=== PATIENT | male | born 1960 | race Caucasian/White ===

== ENCOUNTER 2017-03-26 16:26 | Emergency (ER) | payer BC, OTHER ==
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
[2017-03-26 16:32] VITALS: BP 159/93
== END 2017-03-26 16:35 | disposition home or self-care (01) ==
LOC: ED 16:26
DX: S30.1XXA Contusion of abdominal wall, initial encounter (principal); Y35.393A Legal intervention involving other blunt objects, suspect injured, initial encounter
CPT/HCPCS: 99282; 99283

== ENCOUNTER 2021-05-31 19:35 | Emergency (ER) | payer BC, MEDICAID ==
[2021-05-31] MEDS ORDERED: THIAMINE 100 MG/1 ML 2 ML MDV IM STA (21:40)
--- NOTE | 2021-05-31 21:43 | ED Physician Documentation ---
History of Present Illness - Stated complaint Stated Complaint: L SIDE WEAKNESS - Chief complaint Chief Complaint: General - History obtained from History obtained from: Patient, Family (sister) - Additonal information Additional information: 61-year-old man with history of alcohol abuse presents with frequent falls, weight loss, and left arm tingling/numbness today after walking with a backpack. His sister voices concerns that he has been intermittently drinking and has had episodes of confusion that wax and wane. also has had significant weight loss and fell 3 days ago sustaining ecchymosis to L eye. Patient initially was AO x2 at triage and did not know the year, but upon my inquiry he is AOx3. Last etoh 3 days ago. denies withdrawal symptoms Review of Systems Ten Systems: 10 systems reviewed and negative Cardiac: denies: Chest pain / pressure Skin: reports: Other (ecchymosis to L eye) Musculoskeletal: reports: Other (extremity tingling) Neurologic: reports: Numbness. denies: Focal weakness PD PAST MEDICAL HISTORY - Past Medical History Cardiovascular: None GI: None - Present Medications Home Medications: Ambulatory Orders Medication Instructions Recorded Confirmed Thiamine [Vitamin B-1] 100 mg PO DAILY #30 tablet 05/31/21 - Allergies Allergies/Adverse Reactions: Allergies Allergy/AdvReac Type Severity Reaction Status Date / Time Penicillins AdvReac Hives Verified 05/31/21 19:53 - Social History Does the pt smoke?: No Smoking Status: Never smoker PD ED PE NORMAL - Vitals Vital signs reviewed: Yes - General General: Alert and oriented X 3, No acute distress, Well developed/nourished - HEENT HEENT: Atraumatic, PERRL, EOMI, Other (ecchymosis to L eye) - Neck Neck: Supple, no meningeal sign - Cardiac Cardiac: RRR - Respiratory Respiratory: No respiratory distress, Clear bilaterally - Abdomen Abdomen: Non tender, Non distended - Derm Derm: Normal color - Extremities Extremities: No deformity - Neuro Neuro: Alert and oriented X 3, 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, No motor deficit, No sensory deficit, Normal speech, Other (normal cerebellar testing, gait, strength) - Psych Psych: Normal mood, Normal affect Results - Vitals Vitals: Vital Signs - 24 hr 05/31/21 05/31/21 05/31/21 19:45 20:50 21:30 Temperature 36.6 C Heart Rate 93 77 79 Respiratory 20 20 20 Rate Blood Pressure 140/88 H 117/98 H 150/98 H O2 Saturation 97 99 97 Oxygen O2 Source Room air - EKG (time done) 2140 Rate: Rate (enter#) (72) Rhythm: NSR [place]: Normal Intervals: Other ([place] 209) QRS: Normal Ischemia: Normal ST segments, Other (no STEMI) PD MEDICAL DECISION MAKING - ED course ED course: 61-year-old man presents for evaluation of left arm tingling, without other neurological deficit and without any cardiac symptoms. EKG normal. Neurologic exam within normal limits. Departure - Departure Disposition: Home, Self Care Clinical Impression: Numbness and tingling in left arm Condition: Good Instructions: Delirium Care, Falls Prevent Home Prescriptions: Thiamine [Vitamin B-1] 100 mg PO DAILY #30 tablet Comments: You were seen in the emergency department for evaluation of left arm numbness. You have no neurologic deficits on Physical exam, but please monitor yourself carefully and if you develop any of the signs and symptoms that we discussed or if you have any new or worsening symptoms or other concerns then come back in right away. Please follow-up with your primary doctor this week. Discharge Date/Time: 05/31/21 21:54
[2021-05-31 21:47] VITALS: BP 150/98
== END 2021-05-31 21:54 | disposition home or self-care (01) ==
LOC: ED 19:35
DX: R20.0 Anesthesia of skin (principal); R20.2 Paresthesia of skin; R53.1 Weakness; S00.12XA Contusion of left eyelid and periocular area, initial encounter; W19.XXXA Unspecified fall, initial encounter; Z91.81 History of falling
CPT/HCPCS: 93005; 96372; 99283; 99284; J3411

== ENCOUNTER 2021-11-22 19:30 | Emergency (ER) | payer MEDICAID ==
[2021-11-22 19:32] VITALS: BP 154/107
--- NOTE | 2021-11-22 19:43 | ED Physician Documentation ---
History of Present Illness - Stated complaint Stated Complaint: FIT FOR CONFINEMENT - Chief complaint Chief Complaint: General - History obtained from History obtained from: Patient, Police - Additonal information Additional information: He presents for a fit for confinement examination with [facility] deputies because of alcohol intoxication. There was no report of trauma but breathalyzed 0.3-8 prehospital. Patient states he was not drinking today. Review of Systems Constitutional: denies: Fever, Chills Nose: denies: Rhinorrhea / runny nose Cardiac: denies: Chest pain / pressure, Palpitations Respiratory: denies: Dyspnea, Cough PD PAST MEDICAL HISTORY - Past Medical History Cardiovascular: None GI: None - Present Medications Home Medications: Ambulatory Orders Medication Instructions Recorded Confirmed Thiamine [Vitamin B-1] 100 mg PO DAILY #30 tablet 05/31/21 - Allergies Allergies/Adverse Reactions: Allergies Allergy/AdvReac Type Severity Reaction Status Date / Time Penicillins AdvReac Hives Verified 05/31/21 19:53 - Social History Does the pt smoke?: No Smoking Status: Never smoker PD ED PE NORMAL - Vitals Vital signs reviewed: Yes - General General: Other (He is alert and oriented with slow slurred speech but pleasant and cooperative with significant nystagmus. No evidence of trauma.) - Neck Neck: Supple, no meningeal sign, No bony TTP - Extremities Extremities: No deformity, No tenderness to palpate, Normal ROM s pain, No edema, No calf tenderness / cord - Neuro Neuro: Alert and oriented X 3, Normal speech Eye Opening: Spontaneous Motor: Obeys Commands Verbal: Oriented GCS Score: 15 Results - Vitals Vitals: Vital Signs - 24 hr 11/22/21 19:27 Temperature 36.5 C Heart Rate 128 H Respiratory 16 Rate Blood Pressure 154/107 H O2 Saturation 95 Oxygen O2 Source Room air PD MEDICAL DECISION MAKING - ED course ED course: 61-year-old gentleman with uncomplicated alcohol intoxication going to care home. I see no evidence of an emergency medical condition that would prevent him from being incarcerated. Fit for confinement paperwork was completed with advice to monitor for signs of alcohol withdrawal which may be impending. I left a voicemail for the care home nurse practitioner who did not immediately return my call. Departure - Departure Disposition: 01 Home, Self Care Clinical Impression: Alcohol intoxication Condition: Good Record reviewed to determine appropriate education?: Yes Instructions: ED Alcohol Intoxication
== END 2021-11-22 19:46 | disposition home or self-care (01) ==
LOC: ED 19:30
DX: F10.929 Alcohol use, unspecified with intoxication, unspecified (principal)
CPT/HCPCS: 99281

== ENCOUNTER 2021-11-27 14:27 | Outpatient (CLI) | payer MEDICAID | END 2021-11-27 14:28 | disposition critical access hospital (66) | LOC: EMS 14:27 | DX: R53.1 Weakness (principal); R41.0 Disorientation, unspecified; R52 Pain, unspecified | CPT/HCPCS: A0425; A0429; A0999 ==

== ENCOUNTER 2021-11-27 14:31 | Emergency (ER) | payer MEDICAID ==
--- NOTE | 2021-11-27 14:46 | ED Physician Documentation ---
History of Present Illness - Stated complaint Stated Complaint: ALOC - Chief complaint Chief Complaint: General - Additonal information Additional information: 61-year-old male is brought to the emergency department from the [facility] for evaluation of altered mentation and concerns of alcohol withdrawal. He was jailed reportedly on the . Longterm staff felt that he was more confused than normal and has been having lower extremity swelling. He has been given Librium 100 mg 3 times a day as well as a dose of Ativan today. Patient states that he has a few shots of alcohol a day. However the deputy at the bedside reports that she he spoke with the patient's sister and the patient reportedly drinks half a gallon of alcohol the day. There has been no vomiting or dehydration. While in shelter he has been receiving thiamine and folate. he does not present tachycardic, tachypneic or tremulous Review of Systems Constitutional: denies: Fever, Chills Nose: reports: Reviewed and negative Throat: reports: Reviewed and negative Cardiac: reports: Reviewed and negative Respiratory: reports: Reviewed and negative GI: reports: Abdominal Pain : reports: Reviewed and negative PD PAST MEDICAL HISTORY - Past Medical History Cardiovascular: None GI: None - Present Medications Home Medications: Ambulatory Orders Medication Instructions Recorded Confirmed Thiamine [Vitamin B-1] 100 mg PO DAILY #30 tablet 05/31/21 - Allergies Allergies/Adverse Reactions: Allergies Allergy/AdvReac Type Severity Reaction Status Date / Time Penicillins AdvReac Hives Verified 11/27/21 14:37 - Social History Does the pt smoke?: No Smoking Status: Never smoker PD ED PE EXPANDED - General General: Alert, No acute distress, Disheveled, poorly kept (He is in shelter attire. Makes good eye contact.) - HEENT HEENT: Atraumatic, PERRL, EOMI (No nystagmus elicited.), Pharynx normal - Cardiac Cardiac: Regular Rate, Radial strong equal, Pedal strong equal, Cap refill < 2 sec. No: Murmur Present - Respiratory Respiratory: Clear to ausultation alesha. No: Distress, Labored - Abdomen Abdomen: Normal Bowel sounds. No: Tender to palpation - Extremities Extremities: Pedal edema bilateral, Pedal Pulses Present - Neuro Neuro: Confused, CNII-XII intact, Other (No tremor noted) - GCS Eye Opening: Spontaneous Motor: Obeys Commands Verbal: Confused Total: 14 Results - Vitals Vitals: Vital Signs - 24 hr 11/27/21 11/27/21 11/27/21 14:37 14:50 17:05 Temperature 36.5 C 36.5 C 36.5 C Heart Rate 90 90 78 Respiratory 18 18 16 Rate Blood Pressure 132/90 H 132/90 H 124/90 H O2 Saturation 96 96 99 Oxygen O2 Source Room air - EKG (time done) 1501 Rate: Rate (enter#) (78) Rhythm: NSR [place]: Normal Intervals: Normal [place] QRS: Normal Ischemia: Normal ST segments Compare to prior EKG: Old EKG unavailable Computer interpretation: Agree with computer - Labs Labs: Laboratory Tests 11/27/21 11/27/21 11/27/21 14:55 14:55 14:55 WBC 4.0 L RBC 3.85 L Hgb 12.7 L Hct 37.8 L MCV 98.2 H MCH 33.0 H MCHC 33.6 RDW 14.4 Plt Count 68 L MPV 12.3 H Neut # (Auto) 2.6 Lymph # (Auto) 0.8 L [place] # (Auto) 0.5 Eos # (Auto) 0.1 Baso # (Auto) 0.0 Absolute Nucleated RBC 0.00 Nucleated RBC % 0.0 Sodium 134 L Potassium 3.8 Chloride 96 L Carbon Dioxide 30 Anion Gap 8.0 BUN 17 Creatinine 0.7 Estimated GFR (MDRD) 114 Glucose 160 H Calcium 9.0 Total Bilirubin 1.2 H AST 116 H ALT 75 H Alkaline Phosphatase 91 Ammonia B-Natriuretic Peptide Total Protein 6.8 Albumin 3.7 Globulin 3.1 Albumin/Globulin Ratio 1.2 Lipase 29 TSH 0.98 Urine Color Urine Clarity Urine pH Ur Specific [place] Urine Protein Urine Glucose (UA) Urine Ketones Urine Occult Blood Urine Nitrite Urine Bilirubin Urine Urobilinogen Ur Leukocyte Esterase Ur Microscopic Review Urine Culture Comments Salicylates < 6.0 Urine Opiates Screen Ur Oxycodone Screen Urine Methadone Screen Ur Propoxyphene Screen Acetaminophen < 10 L Ur Barbiturates Screen Ur Tricyclics Screen Ur Phencyclidine Scrn Ur Amphetamine Screen U Methamphetamines Scrn U Benzodiazepines Scrn Urine Cocaine Screen U Cannabinoids Screen Ethyl Alcohol < 5.0 11/27/21 11/27/21 11/27/21 14:55 16:06 16:58 WBC RBC Hgb Hct MCV MCH MCHC RDW Plt Count MPV Neut # (Auto) Lymph # (Auto) [place] # (Auto) Eos # (Auto) Baso # (Auto) Absolute Nucleated RBC Nucleated RBC % Sodium Potassium Chloride Carbon Dioxide Anion Gap BUN Creatinine Estimated GFR (MDRD) Glucose Calcium Total Bilirubin AST ALT Alkaline Phosphatase Ammonia < 10.0 B-Natriuretic Peptide 44 Total Protein Albumin Globulin Albumin/Globulin Ratio Lipase TSH Urine Color DARK YELLOW Urine Clarity CLEAR Urine pH 6.5 Ur Specific [place] 1.015 Urine Protein NEGATIVE Urine Glucose (UA) NEGATIVE Urine Ketones 15 H Urine Occult Blood NEGATIVE Urine Nitrite NEGATIVE Urine Bilirubin NEGATIVE Urine Urobilinogen 0.2 (NORMAL) Ur Leukocyte Esterase NEGATIVE Ur Microscopic Review NOT INDICATED Urine Culture Comments NOT INDICATED Salicylates Urine Opiates Screen NEGATIVE Ur Oxycodone Screen NEGATIVE Urine Methadone Screen NEGATIVE Ur Propoxyphene Screen NEGATIVE Acetaminophen Ur Barbiturates Screen NEGATIVE Ur Tricyclics Screen NEGATIVE Ur Phencyclidine Scrn NEGATIVE Ur Amphetamine Screen NEGATIVE U Methamphetamines Scrn NEGATIVE U Benzodiazepines Scrn POSITIVE H Urine Cocaine Screen NEGATIVE U Cannabinoids Screen POSITIVE H Ethyl Alcohol - Rads (name of study) CXR Radiology: Final report received (no acute process) CT head Radiology: Final report received (Study within normal limits for age without acute abnormality identified.) PD MEDICAL DECISION MAKING - ED course Complexity details: reviewed results, re-evaluated patient, considered differential, d/w patient ED course: 61-year-old male who has a history of heavy alcoholism is brought into the emergency department by shelter staff are concerned that he may be in alcohol withdrawal or having an altered mental status. Patient states he has 3 shots of liquor a day the shelter staff indicate his family has said he drinks up to half a gallon of liquor a day. While at the shelter he has been getting 100 mg of Librium every 8 hours as well as thiamine and folate. On presentation he is slightly confused to the year but is oriented to place, person and situation. He has no focal neurodeficits. His CT of his head is unremarkable. His ammonia level today is not elevated. Chest x-ray without acute focal opacity. EKG was nonischemic. BNP is not elevated. Screening labs do not show an elevated alcohol level. His CBC does not show any significant anemia. His screening chemistry does show some abnormal LFTs most consistent with an alcoholic hepatitis. His ammonia was not elevated. Clinically he does not appear to be in alcohol withdrawal. He has no tremor or tachycardia. His blood pressure has been normal. He appears clinically stable and will be discharged to return back to the shelter. He is advised to continue the Librium as it is being administered. He may benefit in the long-term from follow-up with a oyster sorter. Departure - Departure Disposition: Home, Self Care Clinical Impression: Alcohol abuse Alcoholic cirrhosis Qualifiers: Ascites presence: without ascites Qualified Code(s): K70.30 - Alcoholic cirrhosis of liver without ascites Condition: Stable Record reviewed to determine appropriate education?: Yes Instructions: Cirrhosis Liver Dc Comments: [place] are seen in the emergency department today for concerns that you could be in alcohol withdrawal. You do not appear to be in withdrawal. The shelter staff should continue to give you the Librium as they are already administering it. You should also remain on the thiamine and folate. The CT of your head was normal today. We did do screening labs that showed an essentially normal hemoglobin as well. Your liver function tests are consistent with the development of early alcohol cirrhosis. However your ammonia level is normal. In the long-term you will likely benefit from referral to a oyster sorter to discuss longer-term management of your alcoholic liver disease. If at any point you have fainting episodes, fevers, black or bloody stools, uncontrolled vomiting then you are to return immediately to the ER for a second evaluation.
[2021-11-27 15:05] LABS: BASOPHILS % (AUTO) 0.8 %; EOSINOPHILS # (AUTO) 0.1 10^3/uL (0.0-0.7); EOSINOPHILS % (AUTO) 1.5 %; HCT - HEMATOCRIT 37.8 % (42.0-52.0); HGB - HEMOGLOBIN 12.7 g/dL (14.0-18.0); LYMPHOCYTES # (AUTO) 0.8 10^3/uL (1.5-3.5); LYMPHOCYTES % (AUTO) 19.4 %; MEAN CORPUSCULAR HGB CONC 33.6 g/dL (32.0-36.0); MEAN CORPUSCULAR VOLUME 98.2 fL (80.0-94.0); MEAN PLATELET VOLUME 12.3 fL (7.4-11.4); MONOCYTES # (AUTO) 0.5 10^3/uL (0.0-1.0); MONOCYTES % (AUTO) 12.1 %; NEUTROPHILS # (AUTO) 2.6 10^3/uL (1.5-6.6); NEUTROPHILS % (AUTO) 65.9 %; PLT - PLATELET COUNT 68 10^3/uL (130-450); RED BLOOD COUNT 3.85 10^6/uL (4.70-6.10); RED CELL DISTRIBUTION WIDTH 14.4 % (12.0-15.0)
--- NOTE | 2021-11-27 15:23 | XRAY Report ---
PROCEDURE: Chest 1 View X-Ray INDICATIONS: chest pain TECHNIQUE: One view of the chest was acquired. COMPARISON: None FINDINGS: Surgical changes and devices: None. Lungs and pleura: No pleural effusions or pneumothorax. Lungs are clear. Probable body fold overly ing the left thorax. Mediastinum: Mediastinal contours appear normal. Heart size is normal. Bones and chest wall: No suspicious bony lesions. Overlying soft tissues appear unremarkable. IMPRESSION: No acute process. Reviewed by: Ewa Vivas MD on 11/27/2021 3:21 PM PST Approved by: Ewa Vivas MD on 11/27/2021 3:21 PM [facility] Station ID: [id number]
[2021-11-27 16:05] LABS: ACETAMINOPHEN < 10 ug/mL (10-30); ALBUMIN 3.7 g/dL (3.2-5.5); ALBUMIN/GLOBULIN RATIO 1.2 (1.0-2.2); ALKALINE PHOSPHATASE 91 IU/L (42-121); ALT ALANINE AMINOTRANSFERASE 75 IU/L (10-60); AST ASPARTATE AMINOTRANSFERASE 116 IU/L (10-42); BILIRUBIN,TOTAL 1.2 mg/dL (0.2-1.0); BUN - BLOOD UREA NITROGEN 17 mg/dL (6-20); CARBON DIOXIDE - CO2 30 mmol/L (21-32); CHLORIDE 96 mmol/L (101-111); CREATININE 0.7 mg/dL (0.6-1.2); ETOH - ETHANOL < 5.0 mg/dL; GFR - MDRD 114 (>89); GLUCOSE 160 mg/dL (70-100); LIPASE 29 U/L (22-51); POTASSIUM 3.8 mmol/L (3.5-5.0); SALICYLATE < 6.0 mg/dL; SODIUM 134 mmol/L (135-145); TOTAL PROTEIN 6.8 g/dL (6.7-8.2)
[2021-11-27 16:15] LABS: MUDS CUTOFF CONCENTRATIONS CUTOFF CONC BELOW:
[2021-11-27 16:28] LABS: GLUCOSE, URINE (UA) NEGATIVE (NEGATIVE); KETONES,URINE (UA) 15 mg/dL (NEGATIVE); LEUKOCYTE ESTERASE, URINE NEGATIVE (NEGATIVE); NITRITE,URINE NEGATIVE (NEGATIVE); OCCULT BLOOD,URINE NEGATIVE (NEGATIVE); PH,URINE 6.5 PH (5.0-7.5); PROTEIN,URINE NEGATIVE (NEGATIVE); UROBILINOGEN,URINE 0.2 (NORMAL) E.U./dL (NORMAL)
--- NOTE | 2021-11-27 16:32 | CT Report ---
PROCEDURE: HEAD WO INDICATIONS: ETOH, confusion TECHNIQUE: Noncontrast 4.5 mm thick angled axial sections acquired from the foramen magnum to the vertex. For r adiation dose reduction, the following was used: automated exposure control, adjustment of mA and/or kV according to patient size. COMPARISON: None. FINDINGS: Image quality: There is streak artifact seen through the skull base. Motion artifact is noted. CSF spaces: Basal cisterns are patent. No extra-axial fluid collections. Ventricles are normal in size and shape. Brain: No midline shift. No intracranial masses or hemorrhage. Daniels-white matter interface is norm al. Mild symmetric calcification can be seen in the basal ganglia, which is considered to be normal for age. Age-appropriate brain parenchymal volume loss and chronic small vessel ischemic change can b e seen. Skull and face: Calvarium and visualized facial bones are intact, without suspicious lesions. Sinuses: Visualized sinuses and mastoids are clear. IMPRESSION: Study within normal limits for age, without an acute abnormality identified. Reviewed by: Crescencio Zavala MD on 11/27/2021 3:31 PM [facility] Approved by: Crescencio Zavala MD on 11/27/2021 3:31 PM [facility] Station ID: [id number]
[2021-11-27 16:37] LABS: BILIRUBIN,URINE NEGATIVE (NEGATIVE); CLARITY,URINE CLEAR (CLEAR); ICTOTEST,URINE NEGATIVE
[2021-11-27 16:38] LABS: AMPHETAMINE SCREEN,URINE NEGATIVE (NEGATIVE); BARBITURATE SCREEN,UR NEGATIVE (NEGATIVE); BENZODIAZEPINES SCREEN, URINE POSITIVE (NEGATIVE); COCAINE SCREEN URINE NEGATIVE (NEGATIVE); METHADONE SCREEN, URINE NEGATIVE (NEGATIVE); METHAMPHETAMINES SCREEN, URINE NEGATIVE (NEGATIVE); OPIATE SCREEN, URINE NEGATIVE (NEGATIVE); OXYCODONE SCREEN, URINE NEGATIVE (NEGATIVE); PROPOXYPHENE SCREEN, URINE NEGATIVE (NEGATIVE); THC CANNABINOID SCREEN, URINE POSITIVE (NEGATIVE); TRICYCLIC ANTIDEPRESSANT,URINE NEGATIVE (NEGATIVE)
[2021-11-27 17:06] VITALS: BP 124/90
== END 2021-11-27 17:36 | disposition home or self-care (01) ==
LOC: EDUNIT# → ED 14:31
DX: K70.30 Alcoholic cirrhosis of liver without ascites (principal); F10.10 Alcohol abuse, uncomplicated
CPT/HCPCS: 36415; 80053; 80306; 80307; 80320; 80329; 81001; 81003; 82140; 83690; 83880; 84443; 85025; 87086; 93005; 99283; 99284

== ENCOUNTER 2021-12-01 12:44 | Emergency (ER) | payer OTHER, MEDICAID ==
[2021-12-01] MEDS ORDERED: SODIUM CHLORIDE 0.9% 1,000 ML IV STA (13:16)
[2021-12-01 13:39] LABS: BASOPHILS % (AUTO) 1.2 %; EOSINOPHILS % (AUTO) 1.2 %; HCT - HEMATOCRIT 35.5 % (42.0-52.0); HGB - HEMOGLOBIN 11.9 g/dL (14.0-18.0); LYMPHOCYTES # (AUTO) 0.8 10^3/uL (1.5-3.5); LYMPHOCYTES % (AUTO) 24.5 %; MEAN CORPUSCULAR HEMOGLOBIN 33.5 pg (27.0-31.0); MEAN CORPUSCULAR HGB CONC 33.5 g/dL (32.0-36.0); MEAN PLATELET VOLUME 11.9 fL (7.4-11.4); MONOCYTES # (AUTO) 0.8 10^3/uL (0.0-1.0); MONOCYTES % (AUTO) 23.3 %; NEUTROPHILS # (AUTO) 1.6 10^3/uL (1.5-6.6); NEUTROPHILS % (AUTO) 49.5 %; PLT - PLATELET COUNT 139 10^3/uL (130-450); RED BLOOD COUNT 3.55 10^6/uL (4.70-6.10); RED CELL DISTRIBUTION WIDTH 14.2 % (12.0-15.0); WHITE BLOOD COUNT 3.3 x10^3/uL (4.8-10.8)
[2021-12-01 13:55] LABS: ACETAMINOPHEN < 10 ug/mL (10-30); ALBUMIN 3.5 g/dL (3.2-5.5); ALBUMIN/GLOBULIN RATIO 1.2 (1.0-2.2); ALKALINE PHOSPHATASE 79 IU/L (42-121); ALT ALANINE AMINOTRANSFERASE 131 IU/L (10-60); AST ASPARTATE AMINOTRANSFERASE 144 IU/L (10-42); BILIRUBIN,TOTAL 1.1 mg/dL (0.2-1.0); BUN - BLOOD UREA NITROGEN 11 mg/dL (6-20); CALCIUM 8.8 mg/dL (8.5-10.3); CARBON DIOXIDE - CO2 25 mmol/L (21-32); CHLORIDE 103 mmol/L (101-111); CREATININE 0.7 mg/dL (0.6-1.2); ETOH - ETHANOL < 5.0 mg/dL; GFR - MDRD 114 (>89); GLUCOSE 82 mg/dL (70-100); LIPASE 24 U/L (22-51); POTASSIUM 3.7 mmol/L (3.5-5.0); SALICYLATE < 6.0 mg/dL; SODIUM 137 mmol/L (135-145); TOTAL PROTEIN 6.5 g/dL (6.7-8.2)
[2021-12-01 14:03] LABS: MUDS CUTOFF CONCENTRATIONS CUTOFF CONC BELOW:
--- NOTE | 2021-12-01 14:07 | XRAY Report ---
PROCEDURE: Chest 1 View X-Ray INDICATIONS: dyspnea TECHNIQUE: One view of the chest was acquired. COMPARISON: Chest x-ray, one view, 11/27/2021. FINDINGS: Surgical changes and devices: None. Lungs and pleura: No pleural effusions or pneumothorax. Lungs are clear. Mediastinum: Mediastinal contours appear normal. Heart size is normal. Bones and chest wall: No suspicious bony lesions. Overlying soft tissues appear unremarkable. IMPRESSION: No acute cardiopulmonary disease. Reviewed by: Mo Hoffmann MD on 12/01/2021 2:06 PM PST Approved by: Mo Hoffmann MD on 12/01/2021 2:06 PM PST Station ID: [id number]
[2021-12-01 14:11] LABS: BILIRUBIN,URINE NEGATIVE (NEGATIVE); GLUCOSE, URINE (UA) NEGATIVE (NEGATIVE); KETONES,URINE (UA) TRACE mg/dL (NEGATIVE); LEUKOCYTE ESTERASE, URINE NEGATIVE (NEGATIVE); NITRITE,URINE NEGATIVE (NEGATIVE); OCCULT BLOOD,URINE NEGATIVE (NEGATIVE); PROTEIN,URINE NEGATIVE (NEGATIVE); UROBILINOGEN,URINE 1 (NORMAL) E.U./dL (NORMAL)
[2021-12-01 14:14] LABS: CLARITY,URINE CLEAR (CLEAR)
[2021-12-01 14:20] LABS: AMPHETAMINE SCREEN,URINE NEGATIVE (NEGATIVE); BARBITURATE SCREEN,UR NEGATIVE (NEGATIVE); BENZODIAZEPINES SCREEN, URINE POSITIVE (NEGATIVE); COCAINE SCREEN URINE NEGATIVE (NEGATIVE); METHADONE SCREEN, URINE NEGATIVE (NEGATIVE); METHAMPHETAMINES SCREEN, URINE NEGATIVE (NEGATIVE); OPIATE SCREEN, URINE NEGATIVE (NEGATIVE); OXYCODONE SCREEN, URINE NEGATIVE (NEGATIVE); PROPOXYPHENE SCREEN, URINE NEGATIVE (NEGATIVE); THC CANNABINOID SCREEN, URINE POSITIVE (NEGATIVE); TRICYCLIC ANTIDEPRESSANT,URINE NEGATIVE (NEGATIVE)
--- NOTE | 2021-12-01 14:48 | ED Physician Documentation ---
PD HPI ALTERED MENTAL STATUS - Stated complaint Stated Complaint: GLF - Chief complaint Chief Complaint: Trauma Hd/Nk - History obtained from History obtained from: Patient, Police - History of Present Illness Timing - onset: Today Timing - details: Abrupt onset (The patient is in senior living and has every hour checks. Reportedly had been having some withdrawal symptoms last for 5 days with treated by Librium. This morning he was noted less responsive and a new contusion on the left forehead consistent with fall.) Quality / character: Less responsive, Confused Associated symptoms: No: Fever, Dyspnea, Cough, NVD Contributing factors: Substance abuse (alcoholism in the past and has been in senior living 6 days now. Rx with Librium and folate. Had been doing okay the past few days.). 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 denies: Vomiting, Diarrhea Skin: reports: Abrasion (s) (noted to have left forehead abrasion and local swelling in cell, was not there an hour prior.) Neurologic: reports: Altered mental status. denies: Focal weakness PD PAST MEDICAL HISTORY - Past Medical History Past Medical History: No Cardiovascular: None Respiratory: None Neuro: None Endocrine/Autoimmune: None GI: Cirrhosis - Present Medications Home Medications: Ambulatory Orders Medication Instructions Recorded Confirmed Thiamine [Vitamin B-1] 100 mg PO DAILY #30 tablet 05/31/21 12/01/21 Lorazepam [Ativan] 2 mg PO QID PRN 12/01/21 12/01/21 Magnesium Oxide [Mag Ox] 400 mg PO DAILY 12/01/21 12/01/21 Multivitamin [Theragran] 1 each PO DAILY 12/01/21 12/01/21 Ondansetron Odt [Zofran Odt] 4 mg SL Q6HR PRN 12/01/21 12/01/21 - Allergies Allergies/Adverse Reactions: Allergies Allergy/AdvReac Type Severity Reaction Status Date / Time Penicillins AdvReac Hives Verified 12/01/21 12:53 - Living Situation Living Arrangement: reports: [facility] (the past 9 days. ) - Social History Does the pt smoke?: No Smoking Status: Never smoker Does the pt drink ETOH?: Yes Does the pt have substance abuse?: No - Family History Family history: reports: Unknown PD ED PE NORMAL - Vitals Vital signs reviewed: Yes - General General: No acute distress, Well developed/nourished. No: Alert and oriented X 3 (somnolent, opens eyes to tactile. seems confused. Has pinpoint pupils bilaterally. ) - HEENT HEENT: PERRL (but are constricted bilaterally. right lower eyelid with yellow coloring c/w old bruising. ), Ears normal, Pharynx benign, Other (good gag reflex. left forehead with acute abrasion superficial and local swelling/tender (causes flinching). ). No: Moist mucous membranes - Neck Neck: Supple, no meningeal sign, No adenopathy - Cardiac Cardiac: RRR, No murmur - Respiratory Respiratory: No respiratory distress, Clear bilaterally - Abdomen Abdomen: Soft, Non tender, Non distended. No: Normal bowel sounds (decreased sounds) - Derm Derm: Normal color (except for anterolateral right lower leg redness with warmth. ), Warm and dry - Extremities Extremities: Other (red with swelling and warmth right lower leg anteriorly mostly but some around to lateral mid calf. ) - Neuro Neuro: applied biology professor 2-12 intact Eye Opening: To Pain Motor: Localizes to Pain Verbal: Confused GCS Score: 11 Results - Vitals Vitals: Vital Signs - 24 hr 12/01/21 12/01/21 12/01/21 12:53 13:10 15:31 Temperature 36.6 C Heart Rate 64 60 74 Respiratory 18 14 13 Rate Blood Pressure 140/91 H 154/95 H O2 Saturation 99 98 100 12/01/21 12/01/21 15:33 16:00 Temperature Heart Rate 69 Respiratory 17 Rate Blood Pressure 147/98 H 147/98 H O2 Saturation 99 Oxygen O2 Source Room air - Labs Labs: Laboratory Tests 12/01/21 12/01/21 12/01/21 13:35 13:35 13:35 WBC 3.3 L RBC 3.55 L Hgb 11.9 L Hct 35.5 L MCV 100.0 H MCH 33.5 H MCHC 33.5 RDW 14.2 Plt Count 139 MPV 11.9 H Neut # (Auto) 1.6 Lymph # (Auto) 0.8 L [place] # (Auto) 0.8 Eos # (Auto) 0.0 Baso # (Auto) 0.0 Absolute Nucleated RBC 0.00 Nucleated RBC % 0.0 Sodium 137 Potassium 3.7 Chloride 103 Carbon Dioxide 25 Anion Gap 9.0 BUN 11 Creatinine 0.7 Estimated GFR (MDRD) 114 Glucose 82 Calcium 8.8 Magnesium 2.0 Total Bilirubin 1.1 H AST 144 H ALT 131 H Alkaline Phosphatase 79 Ammonia 18.8 Total Protein 6.5 L Albumin 3.5 Globulin 3.0 Albumin/Globulin Ratio 1.2 Lipase 24 Urine Color Urine Clarity Urine pH Ur Specific [place] Urine Protein Urine Glucose (UA) Urine Ketones Urine Occult Blood Urine Nitrite Urine Bilirubin Urine Urobilinogen Ur Leukocyte Esterase Ur Microscopic Review Urine Culture Comments Salicylates < 6.0 Urine Opiates Screen Ur Oxycodone Screen Urine Methadone Screen Ur Propoxyphene Screen Acetaminophen < 10 L Ur Barbiturates Screen Ur Tricyclics Screen Ur Phencyclidine Scrn Ur Amphetamine Screen U Methamphetamines Scrn U Benzodiazepines Scrn Urine Cocaine Screen U Cannabinoids Screen Ethyl Alcohol < 5.0 12/01/21 13:59 WBC RBC Hgb Hct MCV MCH MCHC RDW Plt Count MPV Neut # (Auto) Lymph # (Auto) [place] # (Auto) Eos # (Auto) Baso # (Auto) Absolute Nucleated RBC Nucleated RBC % Sodium Potassium Chloride Carbon Dioxide Anion Gap BUN Creatinine Estimated GFR (MDRD) Glucose Calcium Magnesium Total Bilirubin AST ALT Alkaline Phosphatase Ammonia Total Protein Albumin Globulin Albumin/Globulin Ratio Lipase Urine Color DARK YELLOW Urine Clarity CLEAR Urine pH 7.0 Ur Specific [place] 1.020 Urine Protein NEGATIVE Urine Glucose (UA) NEGATIVE Urine Ketones TRACE Urine Occult Blood NEGATIVE Urine Nitrite NEGATIVE Urine Bilirubin NEGATIVE Urine Urobilinogen 1 (NORMAL) Ur Leukocyte Esterase NEGATIVE Ur Microscopic Review NOT INDICATED Urine Culture Comments NOT INDICATED Salicylates Urine Opiates Screen NEGATIVE Ur Oxycodone Screen NEGATIVE Urine Methadone Screen NEGATIVE Ur Propoxyphene Screen NEGATIVE Acetaminophen Ur Barbiturates Screen NEGATIVE Ur Tricyclics Screen NEGATIVE Ur Phencyclidine Scrn NEGATIVE Ur Amphetamine Screen NEGATIVE U Methamphetamines Scrn NEGATIVE U Benzodiazepines Scrn POSITIVE H Urine Cocaine Screen NEGATIVE U Cannabinoids Screen POSITIVE H Ethyl Alcohol - Rads (name of study) head CT Radiology: Prelim report reviewed (no acute process), See rad report cervical CT Radiology: Prelim report reviewed (no fractures; C4-5 degenerative change noted), See rad report chest xray Radiology: Prelim report reviewed (no acute process), See rad report duplex right leg Radiology: Prelim report reviewed (no DVT), See rad report PD MEDICAL DECISION MAKING - ED course Complexity details: re-evaluated patient (no acute findings on labs/imaging, and he is more alert and conversant upon recheck. He is swearing and is kicking at officer and providers (both wrists cuffed to cart rails). Seems more alert and interactive now. Actually needed Ativan to help with anxiety. Given IM Ancef for cellulitis leg. ), considered differential (had been getting librium then recent ativan for alcohol withdrawal. Consider over-effect of the benzos. Has contusion left forehead, so need CT to ensure no ICH/bleed. Can check labs for sugar, lytes, blood count. Eval for infectious cause. ), d/w patient, d/w PMD (Jacklyn Michaud - senior living provider) Departure - Departure Disposition: 01 Home, Self Care Clinical Impression: Cellulitis of leg, right Altered mental status Qualifiers: Altered mental status type: stupor Qualified Code(s): R40.1 - Stupor Fall Qualifiers: Encounter type: initial encounter Qualified Code(s): W19.XXXA - Unspecified fall, initial encounter Forehead contusion Qualifiers: Encounter type: initial encounter Qualified Code(s): S00.83XA - Contusion of other part of head, initial encounter Benzodiazepine causing adverse effect in therapeutic use Qualifiers: Encounter type: initial encounter Qualified Code(s): T42.4X5A - Adverse effect of benzodiazepines, initial encounter Condition: Stable Instructions: ED Infec Skin Cellulitis Follow-Up: JACKLYN MICHAUD ARNP [Physician No Access] - Comments: Your CT scan of the head and neck are normal without any signs of bleeding swelling or acute fractures. Your blood tests are looking normal. Chest x-ray is clear. The ultrasound of your right leg does not show any signs of blood clots. It appears you likely have a skin infection called cellulitis of the right lower leg. This can be treated with antibiotics. This will be prescribed by the senior living provider. I think you were sedate due to to medication effect. The senior living provider is planning on continuing medication to help you with withdrawal but at lower doses and you had been. Try to stay well-hydrated. Small frequent fluids. Discharge Date/Time: 12/01/21 16:27
[2021-12-01] MEDS ORDERED: ceFAZolin 1 GM in SODIUM CHLORIDE 0.9% MINIBAG 100 ML IV STA (14:51)
--- NOTE | 2021-12-01 15:30 | CT Report ---
PROCEDURE: HEAD WO INDICATIONS: fall, struck head, decreased LOC TECHNIQUE: Noncontrast 4.5 mm thick angled axial sections acquired from the foramen magnum to the vertex. For r adiation dose reduction, the following was used: automated exposure control, adjustment of mA and/or kV according to patient size. COMPARISON: 11/27/2021. Correlation is made with the accompanying cervical spine CT, 12/01/2021. FINDINGS: Image quality: Excellent. CSF spaces: Basal cisterns are patent. No extra-axial fluid collections. Ventricles are normal in size and shape. Brain: No midline shift. No intracranial masses or hemorrhage. Daniels-white matter interface is norm al. Age-appropriate brain parenchymal volume loss and chronic small vessel ischemic change can be se en. Mild symmetric calcification can be seen of the basal ganglia, which is considered to be within normal limits for age. Skull and face: Calvarium and visualized facial bones are intact, without suspicious lesions. Sinuses: Visualized sinuses and mastoids are clear. IMPRESSION: No intracranial hemorrhage is seen. No significant intracranial abnormality is seen. Age-appropriate brain parenchymal volume loss and chronic small vessel ischemic change can be seen. Reviewed by: Crescencio Zavala MD on 12/01/2021 2:29 PM [place] Approved by: Crescencio Zavala MD on 12/01/2021 2:29 PM [facility] Station ID: [id number]
--- NOTE | 2021-12-01 15:33 | CT Report ---
PROCEDURE: CERVICAL SPINE WO INDICATIONS: fall, head injury TECHNIQUE: Noncontrast 3 mm thick sections acquired from the skull base to the T4 level. Sagittal and coronal r eformats were then constructed. For radiation dose reduction, the following was used: automated exp osure control, adjustment of mA and/or kV according to patient size. COMPARISON: Correlation is made with the accompanying head CT, 12/01/2021 FINDINGS: Image quality: Excellent. Bones: No fractures or dislocations. Visualized superior ribs are intact. At the C4-C5 level, there is minimal retrolisthesis seen. Mild to moderate loss of disc height is see n at this level. Endplate irregularity and sclerosis can be seen. Milder degenerative changes are s een elsewhere. Soft tissues: Prevertebral soft tissues are normal in thickness. No paravertebral hematomas. No ap ical pneumothoraces. A low-density right thyroid lesion is seen, as on series 3 image 29 measuring 2 .7 cm. IMPRESSION: No acute fracture can be seen. Focal C4-C5 degenerative change is seen. There is a 2.7 cm right thyroid nodule incidentally noted. When clinically appropriate, please consid er a dedicated thyroid ultrasound for further evaluation. Reviewed by: Crescencio Zavala MD on 12/01/2021 2:31 PM [facility] Approved by: Crescencio Zavala MD on 12/01/2021 2:31 PM [facility] Station ID: [id number]
--- NOTE | 2021-12-01 15:33 | Ultrasound Report ---
PROCEDURE: Duplex Ext Veins Right INDICATIONS: right leg swelling and redness TECHNIQUE: Real-time imaging, as well as color and pulse Doppler interrogation, were performed of the lower extr emity deep veins from the inguinal ligament to the popliteal fossa. COMPARISON: None. FINDINGS: The deep veins are normally compressible, and free of intraluminal thrombus. Color and pu lse Doppler demonstrate normal phasic intraluminal flow. There is normal augmentation response to di stal compression maneuver. IMPRESSION: No evidence of deep vein thrombosis involving the right lower extremity. Reviewed by: Bryanna Perrin MD, PhD on 12/01/2021 3:31 PM PST Approved by: Bryanna Perrin MD, PhD on 12/01/2021 3:31 PM PST Station ID: [id number]
[2021-12-01 15:34] VITALS: BP 147/98
[2021-12-01] MEDS ORDERED: LORazepam 2 MG/ML VIAL IM STA (15:46)
[2021-12-01] MEDS ORDERED: ceFAZolin 1 GM VIAL IM STA (15:47)
== END 2021-12-01 16:27 | disposition home or self-care (01) ==
LOC: EDUNIT# → ED 12:44
DX: S00.83XA Contusion of other part of head, initial encounter (principal); W19.XXXA Unspecified fall, initial encounter; L03.115 Cellulitis of right lower limb; T42.4X5A Adverse effect of benzodiazepines, initial encounter
CPT/HCPCS: 36415; 70450; 71045; 72125; 80053; 80306; 80307; 80320; 80329; 81003; 82140; 83690; 83735; 85025; 93971; 96372; 96374; 99282; 99284; J2060; 81001; 87086

== ENCOUNTER 2021-12-03 17:19 | Inpatient (IN) | payer MEDICAID, OTHER ==
[2021-12-03] MEDS ORDERED: OLANZapine 10 MG VIAL IM STA (17:51)
--- NOTE | 2021-12-03 17:54 | ED Physician Documentation ---
PD HPI ALTERED MENTAL STATUS - Stated complaint Stated Complaint: MHE - Chief complaint Chief Complaint: MHE - History obtained from History obtained from: Patient, Police - History of Present Illness Timing - duration: Weeks (2) Timing - details: Constant Quality / character: Confused, Agitated, Combative Contributing factors: No: Anticoagulated, Diabetic, Cancer, COPD, New medication, Recent med change, Recent illness, Recent injury, Intoxicated, Substance abuse, Known psych illness, Known dementia Basline status: Alert and oriented X 3, Independent Recently seen: Emergency Dept (x 3 for same) - Additional information Additional information: Patient is a 61-year-old male who is brought back to the emergency department for the third time since being in residential for altered mental status. Has a longstanding history of alcoholism. He has been in residential for 2 weeks and has gone through alcohol detox. Reportedly he is talking about the building being on fire, speaking to people who are not there, and speaking nonsensical. The [facility] pool ordered a DCR evaluation. The DCR evaluated the patient in residential but states that they cannot complete the assessment unless the patient is brought to the emergency department for repeat blood work and repeat evaluation. He has had blood work twice in the past week. Patient states that he does not know why he is here and he wants the police called. When he was told that the police are already in the room with him he states he wants "real police". The police report that he was "swimming in his toilet tonight." They report that initially the disorientation, memory issues and hallucinations were blamed on the alcohol withdrawal, but have not resolved over the past 2 weeks. Review of Systems Unable to obtain: AMS, Uncooperative PD PAST MEDICAL HISTORY - Past Medical History Past Medical History: Yes Cardiovascular: None Respiratory: None Neuro: None Endocrine/Autoimmune: None GI: Cirrhosis - Present Medications Home Medications: Ambulatory Orders Medication Instructions Recorded Confirmed Thiamine [Vitamin B-1] 100 mg PO DAILY #30 tablet 05/31/21 12/03/21 Lorazepam [Ativan] 1 mg PO TID PRN 12/01/21 12/03/21 Magnesium Oxide [Mag Ox] 400 mg PO DAILY 12/01/21 12/03/21 Multivitamin [Theragran] 1 each PO DAILY 12/01/21 12/03/21 Ondansetron Odt [Zofran Odt] 4 mg SL Q6HR PRN 12/01/21 12/03/21 Doxycycline Monohydrate 100 mg PO BID 12/03/21 12/03/21 - Allergies Allergies/Adverse Reactions: Allergies Allergy/AdvReac Type Severity Reaction Status Date / Time Penicillins AdvReac Hives Verified 12/03/21 17:25 - Social History Does the pt smoke?: No Smoking Status: Never smoker Does the pt drink ETOH?: Yes Does the pt have substance abuse?: No PD ED PE NORMAL - General General: No acute distress, Well developed/nourished (Alert, oriented to person, not to place or time. Confused and at times combative) - HEENT HEENT: Atraumatic, PERRL, Moist mucous membranes - Neck Neck: Supple, no meningeal sign - Cardiac Cardiac: RRR - Respiratory Respiratory: No respiratory distress, Clear bilaterally - Abdomen Abdomen: Soft, Non tender, Non distended - Derm Derm: Warm and dry - Extremities Extremities: Normal ROM s pain - Neuro Neuro: director talent 2-12 intact, No motor deficit, No sensory deficit, Normal speech Results - Vitals Vitals: Vital Signs - 24 hr 12/03/21 12/03/21 12/03/21 17:20 17:36 17:51 Temperature 36.5 C Heart Rate 94 96 90 Respiratory 16 18 16 Rate Blood Pressure 114/77 114/77 107/71 O2 Saturation 100 99 97 12/03/21 12/03/21 12/03/21 18:20 19:03 19:22 Temperature Heart Rate 77 66 61 Respiratory 16 15 12 Rate Blood Pressure 121/80 114/75 114/75 O2 Saturation 100 100 100 12/03/21 19:53 Temperature Heart Rate 84 Respiratory 14 Rate Blood Pressure 129/79 O2 Saturation 100 Oxygen O2 Source Room air - Labs Labs: Laboratory Tests 12/03/21 12/03/21 12/03/21 18:10 18:20 18:20 WBC 4.2 L RBC 3.47 L Hgb 11.3 L Hct 34.5 L MCV 99.4 H MCH 32.6 H MCHC 32.8 RDW 14.1 Plt Count 207 MPV 12.1 H Neut # (Auto) 2.5 Lymph # (Auto) 0.9 L [place] # (Auto) 0.6 Eos # (Auto) 0.0 Baso # (Auto) 0.1 Absolute Nucleated RBC 0.00 Nucleated RBC % 0.0 PT 14.7 H INR 1.3 H APTT 24.8 L Sodium Potassium Chloride Carbon Dioxide Anion Gap BUN Creatinine Estimated GFR (MDRD) Glucose Calcium Total Bilirubin AST ALT Alkaline Phosphatase Ammonia Total Protein Albumin Globulin Albumin/Globulin Ratio Lipase TSH Urine Color Urine Clarity Urine pH Ur Specific [place] Urine Protein Urine Glucose (UA) Urine Ketones Urine Occult Blood Urine Nitrite Urine Bilirubin Urine Urobilinogen Ur Leukocyte Esterase Ur Microscopic Review Urine Culture Comments Nasal Adenovirus (PCR) NOT DETECTED Nasal B. parapertussis DNA (PCR) NOT DETECTED Nasal Coronavir 229E PCR NOT DETECTED Nasal Coronavir HKU1 PCR NOT DETECTED Nasal Coronavir NL63 PCR NOT DETECTED Nasal Coronavir OC43 PCR NOT DETECTED Nasal Enterovir/Rhinovir PCR NOT DETECTED Nasal Influenza B PCR NOT DETECTED Nasal Influenza A PCR NOT DETECTED Nasal Parainfluen 1 PCR NOT DETECTED Nasal Parainfluen 2 PCR NOT DETECTED Nasal Parainfluen 3 PCR NOT DETECTED Nasal Parainfluen 4 PCR NOT DETECTED Nasal RSV (PCR) NOT DETECTED Nasal B.pertussis DNA PCR NOT DETECTED Nasal C.pneumoniae (PCR) NOT DETECTED [place] Human Metapneumo PCR NOT DETECTED Nasal M.pneumoniae (PCR) NOT DETECTED Nasal SARS-CoV-2 (PCR) DETECTED A Salicylates Urine Opiates Screen Ur Oxycodone Screen Urine Methadone Screen Ur Propoxyphene Screen Acetaminophen Ur Barbiturates Screen Ur Tricyclics Screen Ur Phencyclidine Scrn Ur Amphetamine Screen U Methamphetamines Scrn U Benzodiazepines Scrn Urine Cocaine Screen U Cannabinoids Screen Ethyl Alcohol 12/03/21 12/03/21 12/03/21 18:20 18:20 18:20 WBC RBC Hgb Hct MCV MCH MCHC RDW Plt Count MPV Neut # (Auto) Lymph # (Auto) [place] # (Auto) Eos # (Auto) Baso # (Auto) Absolute Nucleated RBC Nucleated RBC % PT INR APTT Sodium 140 Potassium 3.4 L Chloride 104 Carbon Dioxide 28 Anion Gap 8.0 BUN 12 Creatinine 0.8 Estimated GFR (MDRD) 98 Glucose 110 H Calcium 8.4 L Total Bilirubin 0.7 AST 103 H ALT 120 H Alkaline Phosphatase 72 Ammonia 12.4 Total Protein 6.2 L Albumin 3.6 Globulin 2.6 Albumin/Globulin Ratio 1.4 Lipase 26 TSH 1.25 Urine Color Urine Clarity Urine pH Ur Specific [place] Urine Protein Urine Glucose (UA) Urine Ketones Urine Occult Blood Urine Nitrite Urine Bilirubin Urine Urobilinogen Ur Leukocyte Esterase Ur Microscopic Review Urine Culture Comments Nasal Adenovirus (PCR) Nasal B. parapertussis DNA (PCR) Nasal Coronavir 229E PCR Nasal Coronavir HKU1 PCR Nasal Coronavir NL63 PCR Nasal Coronavir OC43 PCR Nasal Enterovir/Rhinovir PCR Nasal Influenza B PCR Nasal Influenza A PCR Nasal Parainfluen 1 PCR Nasal Parainfluen 2 PCR Nasal Parainfluen 3 PCR Nasal Parainfluen 4 PCR Nasal RSV (PCR) Nasal B.pertussis DNA PCR Nasal C.pneumoniae (PCR) [place] Human Metapneumo PCR Nasal M.pneumoniae (PCR) Nasal SARS-CoV-2 (PCR) Salicylates < 6.0 Urine Opiates Screen Ur Oxycodone Screen Urine Methadone Screen Ur Propoxyphene Screen Acetaminophen < 10 L Ur Barbiturates Screen Ur Tricyclics Screen Ur Phencyclidine Scrn Ur Amphetamine Screen U Methamphetamines Scrn U Benzodiazepines Scrn Urine Cocaine Screen U Cannabinoids Screen Ethyl Alcohol < 5.0 12/03/21 18:26 WBC RBC Hgb Hct MCV MCH MCHC RDW Plt Count MPV Neut # (Auto) Lymph # (Auto) [place] # (Auto) Eos # (Auto) Baso # (Auto) Absolute Nucleated RBC Nucleated RBC % PT INR APTT Sodium Potassium Chloride Carbon Dioxide Anion Gap BUN Creatinine Estimated GFR (MDRD) Glucose Calcium Total Bilirubin AST ALT Alkaline Phosphatase Ammonia Total Protein Albumin Globulin Albumin/Globulin Ratio Lipase TSH Urine Color YELLOW Urine Clarity CLEAR Urine pH 6.5 Ur Specific [place] 1.020 Urine Protein NEGATIVE Urine Glucose (UA) NEGATIVE Urine Ketones NEGATIVE Urine Occult Blood NEGATIVE Urine Nitrite NEGATIVE Urine Bilirubin NEGATIVE Urine Urobilinogen 0.2 (NORMAL) Ur Leukocyte Esterase NEGATIVE Ur Microscopic Review NOT INDICATED Urine Culture Comments NOT INDICATED Nasal Adenovirus (PCR) Nasal B. parapertussis DNA (PCR) Nasal Coronavir 229E PCR Nasal Coronavir HKU1 PCR Nasal Coronavir NL63 PCR Nasal Coronavir OC43 PCR Nasal Enterovir/Rhinovir PCR Nasal Influenza B PCR Nasal Influenza A PCR Nasal Parainfluen 1 PCR Nasal Parainfluen 2 PCR Nasal Parainfluen 3 PCR Nasal Parainfluen 4 PCR Nasal RSV (PCR) Nasal B.pertussis DNA PCR Nasal C.pneumoniae (PCR) [place] Human Metapneumo PCR Nasal M.pneumoniae (PCR) Nasal SARS-CoV-2 (PCR) Salicylates Urine Opiates Screen NEGATIVE Ur Oxycodone Screen NEGATIVE Urine Methadone Screen NEGATIVE Ur Propoxyphene Screen NEGATIVE Acetaminophen Ur Barbiturates Screen NEGATIVE Ur Tricyclics Screen NEGATIVE Ur Phencyclidine Scrn NEGATIVE Ur Amphetamine Screen NEGATIVE U Methamphetamines Scrn NEGATIVE U Benzodiazepines Scrn POSITIVE H Urine Cocaine Screen NEGATIVE U Cannabinoids Screen NEGATIVE Ethyl Alcohol PD MEDICAL DECISION MAKING - ED course Complexity details: reviewed results, re-evaluated patient, considered differential, d/w patient, d/w excellence consultant ED course: Patient is a 61-year-old male who was brought over from the residential. He initially was uncooperative and appeared altered. He was placed in restraints and given Zyprexa. No significant lab abnormalities. The DCR was consulted, Jaylen, who is known the patient for years. He states that the patient is currently at his normal mental baseline after medication. the patient is now calm and cooperative. Most of the patient's mental issues are likely related to his chronic alcohol use. No metabolic encephalopathy. The patient is not attainable at this time. The patient's sister is going to plan on coming to the emergency department to pick him up on Wednesday morning. His sister who lives in [place] may be able to come pick him up earlier. Alternatively the patient may decide that he wants to go to a hotel tomorrow and awaits the time with his family to pick him up. There is no emergency medical condition at this time. Patient will be signed out to the [facility] emergency department physician for further care. This document was made in part using voice recognition software. While efforts are made to proofread this document, sound alike and grammatical errors may occur. Departure - Departure Clinical Impression: COVID-19, Alcoholism, Alcohol abuse Condition: Stable
[2021-12-03 18:27] LABS: BASOPHILS # (AUTO) 0.1 10^3/uL (0.0-0.1); BASOPHILS % (AUTO) 1.2 %; EOSINOPHILS % (AUTO) 0.5 %; HCT - HEMATOCRIT 34.5 % (42.0-52.0); HGB - HEMOGLOBIN 11.3 g/dL (14.0-18.0); LYMPHOCYTES # (AUTO) 0.9 10^3/uL (1.5-3.5); LYMPHOCYTES % (AUTO) 21.9 %; MEAN CORPUSCULAR HEMOGLOBIN 32.6 pg (27.0-31.0); MEAN CORPUSCULAR HGB CONC 32.8 g/dL (32.0-36.0); MEAN CORPUSCULAR VOLUME 99.4 fL (80.0-94.0); MEAN PLATELET VOLUME 12.1 fL (7.4-11.4); MONOCYTES # (AUTO) 0.6 10^3/uL (0.0-1.0); MONOCYTES % (AUTO) 15.4 %; NEUTROPHILS # (AUTO) 2.5 10^3/uL (1.5-6.6); NEUTROPHILS % (AUTO) 60.8 %; PLT - PLATELET COUNT 207 10^3/uL (130-450); RED BLOOD COUNT 3.47 10^6/uL (4.70-6.10); RED CELL DISTRIBUTION WIDTH 14.1 % (12.0-15.0); WHITE BLOOD COUNT 4.2 x10^3/uL (4.8-10.8)
[2021-12-03 18:34] LABS: MUDS CUTOFF CONCENTRATIONS CUTOFF CONC BELOW:
[2021-12-03 18:35] LABS: INR 1.3 (0.8-1.2); PT - PROTHROMBIN TIME 14.7 secs (9.9-12.6)
[2021-12-03 18:37] LABS: BILIRUBIN,URINE NEGATIVE (NEGATIVE); GLUCOSE, URINE (UA) NEGATIVE (NEGATIVE); KETONES,URINE (UA) NEGATIVE (NEGATIVE); LEUKOCYTE ESTERASE, URINE NEGATIVE (NEGATIVE); NITRITE,URINE NEGATIVE (NEGATIVE); OCCULT BLOOD,URINE NEGATIVE (NEGATIVE); PH,URINE 6.5 PH (5.0-7.5); PROTEIN,URINE NEGATIVE (NEGATIVE); UROBILINOGEN,URINE 0.2 (NORMAL) E.U./dL (NORMAL)
[2021-12-03 18:42] LABS: PARTIAL THROMBOPLASTIN TIME 24.8 secs (24.9-33.3)
[2021-12-03 18:43] LABS: CLARITY,URINE CLEAR (CLEAR)
[2021-12-03 18:46] LABS: AMPHETAMINE SCREEN,URINE NEGATIVE (NEGATIVE); BARBITURATE SCREEN,UR NEGATIVE (NEGATIVE); BENZODIAZEPINES SCREEN, URINE POSITIVE (NEGATIVE); COCAINE SCREEN URINE NEGATIVE (NEGATIVE); METHADONE SCREEN, URINE NEGATIVE (NEGATIVE); METHAMPHETAMINES SCREEN, URINE NEGATIVE (NEGATIVE); OPIATE SCREEN, URINE NEGATIVE (NEGATIVE); OXYCODONE SCREEN, URINE NEGATIVE (NEGATIVE); PROPOXYPHENE SCREEN, URINE NEGATIVE (NEGATIVE); THC CANNABINOID SCREEN, URINE NEGATIVE (NEGATIVE); TRICYCLIC ANTIDEPRESSANT,URINE NEGATIVE (NEGATIVE)
[2021-12-03 18:50] LABS: ACETAMINOPHEN < 10 ug/mL (10-30); ALBUMIN 3.6 g/dL (3.2-5.5); ALBUMIN/GLOBULIN RATIO 1.4 (1.0-2.2); ALKALINE PHOSPHATASE 72 IU/L (42-121); ALT ALANINE AMINOTRANSFERASE 120 IU/L (10-60); AST ASPARTATE AMINOTRANSFERASE 103 IU/L (10-42); BILIRUBIN,TOTAL 0.7 mg/dL (0.2-1.0); BUN - BLOOD UREA NITROGEN 12 mg/dL (6-20); CALCIUM 8.4 mg/dL (8.5-10.3); CARBON DIOXIDE - CO2 28 mmol/L (21-32); CHLORIDE 104 mmol/L (101-111); CREATININE 0.8 mg/dL (0.6-1.2); ETOH - ETHANOL < 5.0 mg/dL; GFR - MDRD 98 (>89); GLUCOSE 110 mg/dL (70-100); LIPASE 26 U/L (22-51); POTASSIUM 3.4 mmol/L (3.5-5.0); SALICYLATE < 6.0 mg/dL; SODIUM 140 mmol/L (135-145); TOTAL PROTEIN 6.2 g/dL (6.7-8.2)
[2021-12-03 19:41] LABS: B. PARAPERTUSSIS- RESP PCR PAN NOT DETECTED; B. PERTUSSIS- RESP PCR PANEL NOT DETECTED; C. PNEUMONIAE- RESP PCR PANEL NOT DETECTED; CORONAVIRUS 229E-RESP PCR NOT DETECTED; CORONAVIRUS HKU1-RESP PCR NOT DETECTED; CORONAVIRUS NL63-RESP PCR NOT DETECTED; CORONAVIRUS OC43-RESP PCR NOT DETECTED; HUMAN METAPNEUMOVIRUS NOT DETECTED; INFLUENZA A- RESP PCR PANEL NOT DETECTED; INFLUENZA B - RESP PCR PANEL NOT DETECTED; M. PNEUMONIAE- RESP PCR PANEL NOT DETECTED; PARAINFLUENZA VIRUS 1 NOT DETECTED; PARAINFLUENZA VIRUS 2 NOT DETECTED; PARAINFLUENZA VIRUS 3 NOT DETECTED; PARAINFLUENZA VIRUS 4 NOT DETECTED; RHINOVIRUS/ENTEROVIRUS NOT DETECTED; RSV- RESP PCR PANEL NOT DETECTED
[2021-12-03 19:42] LABS: SARS-CoV-2 -RESP PCR PANEL DETECTED
--- NOTE | 2021-12-03 21:14 | ED Physician Documentation ---
Face to Face for Restraints - Immediate Situation Face to Face Evaluation Date: 12/03/21 Face to Face Evaluation Time: 18:00 Restraint Situation: Locking, Chemical Patient's Reactions to the Intervention: Physically safe - Behavioral Condition Attitude: Other (aggressive) Behavior: Uncooperative, Agitated Orientation: Person, Place Mood: Angry - Evaluation Review of Systems: see progress note Pertinent History/Illicit Drugs/Medications/Results: see progress note - Plan Need to Continue or Terminate Violent or Chemical Restraint: restraints will be removed when safe
[2021-12-04] MEDS ORDERED: MAGNESIUM OXIDE 400 MG TABLET PO SCH (09:00)
[2021-12-04] MEDS ORDERED: MULTIVITAMIN TABLET PO SCH (09:00)
[2021-12-04] MEDS: OLANZapine ODT 5 MG TABLET TL SCH ×3 (12:58→22:38)
[2021-12-04] MEDS: THIAMINE 100 MG TABLET PO SCH (12:58)
[2021-12-04] MEDS ORDERED: SODIUM CHLORIDE 0.9% 1,000 ML IV STA (16:32)
[2021-12-04] MEDS ORDERED: THIAMINE INJ 100 MG, MAGNESIUM SULFATE 2 GM, MULTIVITAMIN 10 ML, FOLIC ACID INJ 1 MG in... IV ONE ×5 (16:34)
[2021-12-04] MEDS ORDERED: THIAMINE INJ 100 MG in SODIUM CHLORIDE 0.9% 50 ML IV STA (16:34)
--- NOTE | 2021-12-04 16:40 | ED Physician Documentation ---
ED Addendum - Addendum Addendum: 12/04/21 16:35Evaluation of the patient. He actually seems worse today than he was yesterday with more unsteadiness and confusion. emergency worker had talked with him and his family and apparently they stated even though he has been having some confusion and difficulties with the chronic alcoholism that he is not usually to this degree. He does seem more confused than when I saw him after a fall 3 days ago. He had received medications for withdrawal in the half-way and also had thiamine supplement and vitamins. Examination at this time shows unkempt appearance without unsteadiness of gait and confusion. Eye exam had a suggestion of some mild nystagmus. No focal deficits otherwise on motor exam or sensory exam. He is not really making sense with speech content at this time. Concern for metabolic or Warnicke's type encephalopathy given that he is seeming to worsen a bit with symptoms. I talked with the hospitalist who agrees the patient can be put in the hospital on observation for initial treatment and further evaluation. Disposition: The patient is placed in observation status in the hospital Diagnoses: 1. Chronic alcoholism. 2. encephalopathy, chronic versus acute on chronic 3. confusion and ataxia
[2021-12-04 17:02] LABS: BASOPHILS # (AUTO) 0.1 10^3/uL (0.0-0.1); BASOPHILS % (AUTO) 1.8 %; EOSINOPHILS % (AUTO) 0.2 %; HCT - HEMATOCRIT 41.5 % (42.0-52.0); HGB - HEMOGLOBIN 13.6 g/dL (14.0-18.0); LYMPHOCYTES # (AUTO) 0.9 10^3/uL (1.5-3.5); LYMPHOCYTES % (AUTO) 20.2 %; MEAN CORPUSCULAR HEMOGLOBIN 32.9 pg (27.0-31.0); MEAN CORPUSCULAR HGB CONC 32.8 g/dL (32.0-36.0); MEAN CORPUSCULAR VOLUME 100.2 fL (80.0-94.0); MEAN PLATELET VOLUME 12.1 fL (7.4-11.4); MONOCYTES # (AUTO) 0.6 10^3/uL (0.0-1.0); MONOCYTES % (AUTO) 14.5 %; NEUTROPHILS # (AUTO) 2.8 10^3/uL (1.5-6.6); NEUTROPHILS % (AUTO) 63.3 %; PLT - PLATELET COUNT 241 10^3/uL (130-450); RED BLOOD COUNT 4.14 10^6/uL (4.70-6.10); RED CELL DISTRIBUTION WIDTH 14.1 % (12.0-15.0); WHITE BLOOD COUNT 4.4 x10^3/uL (4.8-10.8)
[2021-12-04 17:13] LABS: ALBUMIN 4.3 g/dL (3.2-5.5); ALBUMIN/GLOBULIN RATIO 1.3 (1.0-2.2); BILIRUBIN,TOTAL 0.8 mg/dL (0.2-1.0); CALCIUM 9.4 mg/dL (8.5-10.3); CREATININE 0.7 mg/dL (0.6-1.2); MAGNESIUM 2.2 mg/dL (1.7-2.8); POTASSIUM 4.2 mmol/L (3.5-5.0); TOTAL PROTEIN 7.6 g/dL (6.7-8.2)
[2021-12-04] MEDS: THIAMINE INJ 500 MG in SODIUM CHLORIDE 0.9% 50 ML IV SCH ×2 (17:35→23:04)
--- NOTE | 2021-12-04 19:25 | CT Report ---
PROCEDURE: HEAD WO INDICATIONS: confused. Head contusion 3 days ago (nl CT then). TECHNIQUE: Noncontrast 4.5 mm thick angled axial sections acquired from the foramen magnum to the vertex. For r adiation dose reduction, the following was used: automated exposure control, adjustment of mA and/or kV according to patient size. COMPARISON: 12/01/2021. FINDINGS: Image quality: Diagnostic. CSF spaces: Basal cisterns are patent. No extra-axial fluid collections. Ventricles are normal in size and shape. Brain: No midline shift. No intracranial masses or hemorrhage. Daniels-white matter interface is norm al. Stable appearance of diffuse cortical volume loss. Diffuse periventricular and subcortical hypoat tenuation compatible with sequela chronic small vessel ischemic disease. Mild atherosclerotic calcifi cations of the intracranial internal carotid arteries. Skull and face: Calvarium and visualized facial bones are intact, without suspicious lesions. Sinuses: Visualized sinuses and mastoids are clear. IMPRESSION: Stable CT evaluation of the head without acute intracranial abnormalities. No acute calv arial fractures. Stable age-related senescent changes and sequela of chronic small vessel ischemic di sease. Reviewed by: Sam Alarcon MD on 12/04/2021 7:23 PM PST Approved by: Sam Alarcon MD on 12/04/2021 7:23 PM PST Station ID: [id number]
[2021-12-04] MEDS ORDERED: LORazepam 2 MG/ML VIAL IVP STA (21:10)
--- NOTE | 2021-12-04 21:11 | ED Physician Documentation ---
ED Addendum - Addendum Addendum: 12/04/21 21:[address] Washburn at shift change. My understanding at shift change was that the plan was that the hospitalist had asked Dr. Washburn to obtain a repeat head CT and I would follow up on it. There are no acute changes and I presented this to Dr. Melchor for admission at this time.
[2021-12-04] MEDS ORDERED: ONDANSETRON 4 MG/2 ML VIAL IVP PRN (21:17)
--- NOTE | 2021-12-04 21:22 | HISTORY & PHYSICAL EXAMINATION ---
History and Physical - History and Physical Reason for admission:Sent from correctional facility with altered mental status Source of history: Per electronic medical record and from ER signout, patient had altered mental status and was unable to meaningfully interact. No family member was available to interview Chief complaint: Confusion, unsteady gait, hallucinations History of present illness and ER course: The patient is a 61-year-old white male with longstanding history of chronic alcoholism. He was first evaluated in the ER on November 22, 2020, was brought in by the police requesting evaluation to determine whether the patient was fit for confinement. At that time the patient was found with alcohol intoxication but no other acute problem, was discharged from the ER and taken to correctional facility. Subsequently he had multiple ER visits to get evaluated for altered mental status, was treated for dehydration/was hydrated, started on treatment for alcohol withdrawal, was given Librium and Ativan which therapies could be continued at the correctional facility. He was also evaluated for unsteady gait and fall with closed head injury/was found with no acute intracranial abnormality. As long as he was incarcerated his safety was ensured and he could be continued on treatment for alcohol withdrawal. After he was released from the correctional facility however, he continued with hallucination, ataxia and confusion therefore was brought back to the ER. He had a prolonged ER stay for over 24 hours, was medicated with Librium, Ativan, Zyprexa and with vitamin/thiamine replacement. Encephalopathy has not cleared. CT scan of the brain was repeated, showed no acute intracranial abnormality. It was felt that the patient's prolonged and ongoing altered mental status was secondary to Wernicke's encephalopathy/chronic alcoholism with superimposed alcohol withdrawal, therefore hospital admission was requested. I evaluated the patient several times during the admission process, he was agitated, with fluctuating mentation and required multiple doses of IV Ativan, Haldol plus at some point required restraints as well. Past medical history: Alcoholism Outpatient medications: Reviewed per EMR, included medications given at correctional facility, also reviewed medications given during the ER stay Social history:Patient is a chronic alcoholic, on admission unable to discuss social history due to altered mental status Family history:Unable to provide due to altered mental status Review of symptoms: Patient was unable to meaningfully interact, due to altered mental status. 12-system review was attempted. Per obvious findings and ER documentation, the review was positive for hallucination, ataxia, nystagmus, altered mental status/encephalopathy, unsteady gait. Diagnostic tests: obtained between November 27 and December 04, 2021 Reviewed per [facility]/EMR, including CT scan of the brain with chronic microvascular changes no acute abnormality. CT scan of the cervical spine showing degenerative changes, thyroid nodule. Laboratories included ammonia within normal level, no significant electrolyte abnormality/mild abnormalities corrected with replacement and hydration, elevated LFTs without significant upgoing trend, INR 1.3, mild coagulopathy, white blood cell count and hemoglobin slightly below normal, normal platelet count, TSH within normal limits, Chest x- ray with no acute cardiopulmonary abnormality, EKG without acute ischemia Physical exam: Vital signs reviewed per electronic medical record General: Well-developed unkempt, thin, chronically ill-appearing male with altered mental status/confusion but otherwise not in distress Respiratory: No increased work of breathing/clear to auscultation bilaterally CVS: S1, S2 regular, no pathologic murmur Abdomen: Soft, benign, bowel tones present Musculoskeletal: Resolving bruising on the right side of the face periorbitally without swelling, asymmetry or bony abnormality Skin: Pallor, no jaundice Lymph: Without peripheral lymphedema Psych: Pleasantly confused, hallucinating, talking about friends who are not present Neuro: Alert, not oriented to situation, time or context, oriented to self, noted with fine horizontal nystagmus on lateral gaze, symmetric face, slurred speech, unsteady gait, extremity tremors Assessment and plan: Summary: 61-year-old male with past medical history of chronic alcoholism incarcerated in the past several days and from [facility] he had several ER transfers/visits due to altered mental status. During the past few days he was hydrated treated with Librium Ativan and Zyprexa. After released from correctional facility he is back to the ER with ongoing encephalopathy frequent falls hallucination ataxia consistent with multifactorial encephalopathy.The patient most likely has Wernicke's encephalopathy, now with superimposed alcohol withdrawal and medication induced changes. Active issues/diagnoses: Encephalopathy multifactorial Chronic alcoholism/Wernicke's encephalopathy Acute/subacute alcohol withdrawal Delirium in the setting of alcohol withdrawal plus being medicated with kim odiazepine and antipsychotic meds Minor laboratory abnormalities including mild coagulopathy, anemia, leukopenia, abnormal LFTs likely secondary to chronic alcoholism/liver disease/liver synthetic dysfunction and alcohol induced bone marrow suppression Frequent falls Closed head injury with normal CT scan Thyroid nodule/incidental finding, normal TSH, will require dedicated thyroid ultrasound Covid positive with out respiratory symptoms/Not likely Covid encephalopathy Homelessness/psychosocial issues Plan: Meets inpatient criteria based on hallucination/unsteady gait/multifactorial encephalopathy Admitted as inpatient One-to-one observation, nonviolent restraints as needed together with pharmacologic restraints/Medications will be the same as medications used for alcohol induced delirium [id number] Librium with holding for sedation CIWA scoring with as needed Ativan Continue Zyprexa Will finish IV thiamine in the next 48 hours Continue vitamin replacements and hydration as needed Social work consult for placement PT/OT evaluation Isolation for Covid/No hypoxia, no symptoms, does not require oxygen or specific therapy DVT prophylaxis both pharmacologic and mechanical as tolerated Attestation: The patient is admitted as inpatient, meets inpatient criteria based on encephalopathy (likely Wernicke)/alcohol withdrawal requiring IV medications; he is expected to be hospitalized for more than 48 hours however to discharge or transfer to another facility with with 96 hours Time spent: 65 minutes
[2021-12-04] MEDS: chlordiazePOXIDE 25 MG CAPSULE PO SCH (22:17)
[2021-12-04] MEDS: LORazepam 2 MG/ML VIAL IVP PRN (22:28)
[2021-12-04] MEDS ORDERED: HALOPERIDOL 5 MG/ML VIAL IVP ONE (22:45)
[2021-12-04 23:35] LABS: ALBUMIN 3.6 g/dL (3.2-5.5); ALBUMIN/GLOBULIN RATIO 1.2 (1.0-2.2); BILIRUBIN,TOTAL 0.7 mg/dL (0.2-1.0); CREATININE 0.7 mg/dL (0.6-1.2); POTASSIUM 4.3 mmol/L (3.5-5.0); TOTAL PROTEIN 6.7 g/dL (6.7-8.2)
[2021-12-04 23:48] LABS: BASOPHILS # (AUTO) 0.1 10^3/uL (0.0-0.1); BASOPHILS % (AUTO) 1.4 %; EOSINOPHILS % (AUTO) 0.6 %; HCT - HEMATOCRIT 35.1 % (42.0-52.0); HGB - HEMOGLOBIN 11.6 g/dL (14.0-18.0); LYMPHOCYTES # (AUTO) 0.5 10^3/uL (1.5-3.5); MEAN CORPUSCULAR HEMOGLOBIN 33.3 pg (27.0-31.0); MEAN CORPUSCULAR VOLUME 100.9 fL (80.0-94.0); MEAN PLATELET VOLUME 11.8 fL (7.4-11.4); MONOCYTES # (AUTO) 0.4 10^3/uL (0.0-1.0); MONOCYTES % (AUTO) 10.7 %; NEUTROPHILS # (AUTO) 2.6 10^3/uL (1.5-6.6); PLT - PLATELET COUNT 188 10^3/uL (130-450); RED BLOOD COUNT 3.48 10^6/uL (4.70-6.10); RED CELL DISTRIBUTION WIDTH 14.2 % (12.0-15.0); WHITE BLOOD COUNT 3.6 x10^3/uL (4.8-10.8)
[2021-12-04 23:49] LABS: INR 1.4 (0.8-1.2); PT - PROTHROMBIN TIME 15.1 secs (9.9-12.6)
[2021-12-05] MEDS: THIAMINE INJ 500 MG in SODIUM CHLORIDE 0.9% 50 ML IV SCH ×4 (00:06→22:06)
[2021-12-05] MEDS: LORazepam 2 MG/ML VIAL IVP PRN ×5 (00:27→22:02)
[2021-12-05] MEDS: SODIUM CHLORIDE FLUSH 0.9% 10 ML SYRINGE IVP SCH ×3 (01:24→18:23)
[2021-12-05] MEDS: chlordiazePOXIDE 25 MG CAPSULE PO SCH (06:30)
--- NOTE | 2021-12-05 10:37 | PROVIDER PROGRESS NOTE ---
Assessment/Plan - Problem List (1) Altered mental status Assessment/Plan: Encephalopathy is multifactorial: due to Chronic alcoholism/Wernicke's encephalopathy, Acute iv Ativan dosing and on Librium for alcohol withdrawal, possibly also some Delirium in the setting of alcohol withdrawal. Will support with iv fluids until he is more alert. I spoke to his daughter Solitario [phone] and updated her on his entire condition today at her request. She gave additional info that he lived in an RV with black mold on [place] before being in intermediate. (2) Wernicke-Korsakoff syndrome (alcoholic) Assessment/Plan: This is his presumed underlying problem. Continue with iv Thiamine, Banana Bag for iv hydration, po Thiamine when taking po diet. (3) Alcohol abuse Assessment/Plan: He has laboratory abnormalities including mild coagulopathy, anemia, leukopenia, abnormal LFTs likely secondary to chronic alcoholism/liver disease/liver synt hetic dysfunction and alcohol induced bone marrow suppression. Continue Banana Bag iv, Thiamine po. Will continue Librium for treating withdrawl but decrease the dose as he is very sedated today and has a normal BMI. Continue CIWA protocol When medically stable, will ask for SW consult. (4) Alcoholic cirrhosis Assessment/Plan: His AST/ALT are elevated and increased this morning, without elevation of Lipase, bili or Alk Phos. No evidence of shock liver or hepatorenal syndrome. Most likley from alcoholic liver disease. Avoid heaptotoxins Will do abdominal imaging if there is continued increase in AST/ALT. Follow LFTs until they decline (5) Fall Assessment/Plan: According to Hx, he had several falls while in intermediate. There was no fracture or brain hemorrhage by 2 CT scans. Needs assessment by PT regarding probable ataxia from Wernicke's encephalopathy. Will check orthostatic VS. (6) Forehead contusion Assessment/Plan: Closed head injury with normal CT scan of head and C-spine. Will offer pain meds if needed. (7) COVID-19 Assessment/Plan: Covid positive with out respiratory symptoms. Doubt this is Covid encephalopathy. Monitor vital signs, oxygen saturation, consider starting specific Covid treatment with remdesivir and Decadron if he is a candidate. (8) Thyroid nodule Assessment/Plan: Thyroid nodule/incidental finding, normal TSH, will require dedicated thyroid ultrasound - Current Meds Current Meds: Current Medications Generic Name Dose Route Start Last Admin Trade Name Freq PRN Reason Stop Dose Admin Thiamine HCl 500 mg/ Sodium 55 mls @ 100 mls/hr 12/05/21 06:00 12/05/21 07:37 Chloride IV 12/06/21 06:32 Infused Q8H MARY Infusion Lorazepam 1 mg 12/04/21 21:13 12/05/21 00:27 Lorazepam 2 Mg/Ml Vial IVP 1 mg Q1HR PRN Administration CIWA >8 Protocol Olanzapine 5 mg 12/04/21 22:00 12/04/21 22:38 Olanzapine Odt 5 Mg Tablet TL 5 mg BID MARY Administration Sodium Chloride 10 ml 12/05/21 01:00 12/05/21 01:24 Sodium Chloride Flush 0.9% 10 Ml Syringe IVP 10 ml 0100,0900,1700 MARY Administration Thiamine HCl 100 mg 12/04/21 09:00 12/04/21 12:58 Thiamine 100 Mg Tablet PO 100 mg DAILY MARY Administration - Lab Result Fish Bone Diagrams: 12/04/21 23:33 12/04/21 23:17 - Additional Planning My Orders: My Active Orders 12/05/21 14:00 [id number] [Librium] 10 mg PO Q8HR Subjective - Subjective Patient Reports: Other (Asleep after an iv Ativan dose) Objective Vital Signs: Vital Signs - 24 hr 12/04/21 12/04/21 12/04/21 19:30 22:00 23:49 Temperature 37.2 C Heart Rate 101 H Heart Rate [ 93 96 Brachial] Respiratory 18 18 19 Rate Blood Pressure 93/68 Blood Pressure 140/92 H 128/92 H [Right Brachial artery] O2 Saturation 100 94 96 12/05/21 07:41 Temperature 37.5 C Heart Rate Heart Rate [ 67 Brachial] Respiratory 20 Rate Blood Pressure Blood Pressure 107/36 L [Right Brachial artery] O2 Saturation 97 Oxygen O2 Source Room air I&O (Last 24 Hrs): Intake and Output Totals x24h 12/03/21 12/04/21 12/05/21 23:59 23:59 23:59 Intake Total 940 345 Output Total 600 Balance 940 -255 General: Other (Disheveled, thin male. Asleep (after iv Ativam dose)) HEENT: Mucous membr. moist/pink Neck: Other (Asleep and cannot visualize pt) Neuro: Other (Asleep after iv Ativan) Cardiovascular: Regular rate, No murmurs Respiratory: No respiratory distress, Breath sounds nml Abdomen: Normal bowel sounds, Soft Extremities: No edema, No tenderness/swelling - Results Results: Laboratory Results WBC 3.6 x10^3/uL (4.8-10.8) L 12/04/21 23: RBC 3.48 10^6/uL (4.70-6.10) L 12/04/21 23:33 Hgb 11.6 g/dL (14.0-18.0) L 12/04/21 23:33 Hct 35.1 % (42.0-52.0) L 12/04/21 23: MCV 100.9 fL (80.0-94.0) H 12/04/21 23: MCH 33.3 pg (27.0-31.0) H 12/04/21 23: MCHC 33.0 g/dL (32.0-36.0) 12/04/21 23: RDW 14.2 % (12.0-15.0) 12/04/21 23: Plt Count 188 10^3/uL (130-450) 12/04/21 23: MPV 11.8 fL (7.4-11.4) H 12/04/21 23:33 Neut # (Auto) 2.6 10^3/uL (1.5-6.6) 12/04/21 23: Lymph # (Auto) 0.5 10^3/uL (1.5-3.5) L 12/04/21 23: O'Brien # (Auto) 0.4 10^3/uL (0.0-1.0) 12/04/21 23:33 Eos # (Auto) 0.0 10^3/uL (0.0-0.7) 12/04/21 23: Baso # (Auto) 0.1 10^3/uL (0.0-0.1) 12/04/21 23: Absolute Nucleated RBC 0.00 x10^3/uL 12/04/21 23: Nucleated RBC % 0.0 /100WBC 12/04/21 23: PT 15.1 secs (9.9-12.6) H 12/04/21 23:33 INR 1.4 (0.8-1.2) H 12/04/21 23:33 APTT 24.8 secs (24.9-33.3) L 12/03/21 18:20 Sodium 139 mmol/L (135-145) 12/04/21 23:17 Potassium 4.3 mmol/L (3.5-5.0) 12/04/21 23:17 Chloride 102 mmol/L (101-111) 12/04/21 23:17 Carbon Dioxide 28 mmol/L (21-32) 12/04/21 23:17 Anion Gap 9.0 (6-13) 12/04/21 23:17 BUN 16 mg/dL (6-20) 12/04/21 23:17 Creatinine 0.7 mg/dL (0.6-1.2) 12/04/21 23:17 Estimated GFR (MDRD) 114 (>89) 12/04/21 23:17 Glucose 99 mg/dL (70-100) 12/04/21 23:17 Calcium 9.0 mg/dL (8.5-10.3) 12/04/21 23:17 Magnesium 2.2 mg/dL (1.7-2.8) 12/04/21 16:52 Total Bilirubin 0.7 mg/dL (0.2-1.0) 12/04/21 23:17 AST 174 IU/L (10-42) H 12/04/21 23:17 ALT 159 IU/L (10-60) H 12/04/21 23:17 Alkaline Phosphatase 75 IU/L (42-121) 12/04/21 23:17 Ammonia 14.3 umol/L (7-35) 12/04/21 16:52 Total Protein 6.7 g/dL (6.7-8.2) 12/04/21 23:17 Albumin 3.6 g/dL (3.2-5.5) 12/04/21 23:17 Globulin 3.1 g/dL (2.1-4.2) 12/04/21 23:17 Albumin/Globulin Ratio 1.2 (1.0-2.2) 12/04/21 23:17 Lipase 32 U/L (22-51) 12/04/21 16:52 TSH 1.25 uIU/mL (0.34-5.60) 12/03/21 18:20 Urine Color YELLOW 12/03/21 18:26 Urine Clarity CLEAR (CLEAR) 12/03/21 18:26 Urine pH 6.5 PH (5.0-7.5) 12/03/21 18:26 Ur Specific [place] 1.020 (1.002-1.030) 12/03/21 18:26 Urine Protein NEGATIVE mg/dL (NEGATIVE) 12/03/21 18:26 Urine Glucose (UA) NEGATIVE mg/dL (NEGATIVE) 12/03/21 18: Urine Ketones NEGATIVE mg/dL (NEGATIVE) 12/03/21 18:26 Urine Occult Blood NEGATIVE (NEGATIVE) 12/03/21 18: Urine Nitrite NEGATIVE (NEGATIVE) 12/03/21 18:26 Urine Bilirubin NEGATIVE (NEGATIVE) 12/03/21 18:26 Urine Urobilinogen 0.2 (NORMAL) E.U./dL (NORMAL) 12/03/21 18:26 Ur Leukocyte Esterase NEGATIVE (NEGATIVE) 12/03/21 18:26 Ur Microscopic Review NOT INDICATED 12/03/21 18:26 Urine Culture Comments NOT INDICATED 12/03/21 18:26 Nasal Adenovirus (PCR) NOT DETECTED 12/03/21 18:10 Nasal B. parapertussis DNA (PCR) NOT DETECTED 12/03/21 18:10 Nasal Coronavir 229E PCR NOT DETECTED 12/03/21 18:10 Nasal Coronavir HKU1 PCR NOT DETECTED 12/03/21 18:10 Nasal Coronavir NL63 PCR NOT DETECTED 12/03/21 18:10 Nasal Coronavir OC43 PCR NOT DETECTED 12/03/21 18:10 Nasal Enterovir/Rhinovir PCR NOT DETECTED 12/03/21 18:10 Nasal Influenza B PCR NOT DETECTED 12/03/21 18:10 Nasal Influenza A PCR NOT DETECTED 12/03/21 18:10 Nasal Parainfluen 1 PCR NOT DETECTED 12/03/21 18:10 Nasal Parainfluen 2 PCR NOT DETECTED 12/03/21 18:10 Nasal Parainfluen 3 PCR NOT DETECTED 12/03/21 18:10 Nasal Parainfluen 4 PCR NOT DETECTED 12/03/21 18:10 Nasal RSV (PCR) NOT DETECTED 12/03/21 18:10 Nasal B.pertussis DNA PCR NOT DETECTED 12/03/21 18:10 Nasal C.pneumoniae (PCR) NOT DETECTED 12/03/21 18:10 Juan Daniel Human Metapneumo PCR NOT DETECTED 12/03/21 18:10 Nasal M.pneumoniae (PCR) NOT DETECTED 12/03/21 18:10 Nasal SARS-CoV-2 (PCR) DETECTED A 12/03/21 18:10 Salicylates < 6.0 mg/dL 12/03/21 18:20 Urine Opiates Screen NEGATIVE (NEGATIVE) 12/03/21 18:26 Ur Oxycodone Screen NEGATIVE (NEGATIVE) 12/03/21 18:26 Urine Methadone Screen NEGATIVE (NEGATIVE) 12/03/21 18:26 Ur Propoxyphene Screen NEGATIVE (NEGATIVE) 12/03/21 18:26 Acetaminophen < 10 ug/mL (10-30) L 12/03/21 18:20 Ur Barbiturates Screen NEGATIVE (NEGATIVE) 12/03/21 18:26 Ur Tricyclics Screen NEGATIVE (NEGATIVE) 12/03/21 18:26 Ur Phencyclidine Scrn NEGATIVE (NEGATIVE) 12/03/21 18:26 Ur Amphetamine Screen NEGATIVE (NEGATIVE) 12/03/21 18:26 U Methamphetamines Scrn NEGATIVE (NEGATIVE) 12/03/21 18:26 U Benzodiazepines Scrn POSITIVE (NEGATIVE) H 12/03/21 18:26 Urine Cocaine Screen NEGATIVE (NEGATIVE) 12/03/21 18:26 U Cannabinoids Screen NEGATIVE (NEGATIVE) 12/03/21 18:26 Ethyl Alcohol < 5.0 mg/dL 12/03/21 18:20
--- NOTE | 2021-12-05 10:59 | PHARMACY PROGRESS NOTE ---
- Best Possible Medication History Admit Date and Time: 12/04/212116 Processed by: Nursing Medication History completed: Yes As the person ultimately responsible for medication therapy, providers are able to order a medication from an existing home medication list in [facility] via the "Reconcile Routine" prior to Confirmation of that medication by systems support specialist. Such practice is discouraged except when the physician, in their clinical judgment, deems that a medical need exists for a medication without regard to previous use.
[2021-12-05] MEDS: HEPARIN 5,000 UNIT/ML VIAL SUBQ SCH ×2 (11:03→22:01)
[2021-12-05] MEDS: MAGNESIUM OXIDE 400 MG TABLET PO SCH (12:09)
[2021-12-05] MEDS: MULTIVITAMIN TABLET PO SCH (12:09)
[2021-12-05] MEDS: THIAMINE 100 MG TABLET PO SCH (12:09)
[2021-12-05] MEDS: OLANZapine ODT 5 MG TABLET TL SCH ×2 (12:09→21:54)
[2021-12-05] MEDS: chlordiazePOXIDE 5 MG CAPSULE PO SCH ×2 (13:00→21:51)
[2021-12-05] MEDS ORDERED: SODIUM CHLORIDE 0.9% 250 ML IV PRN (14:51)
[2021-12-05] MEDS: SODIUM CHLORIDE FLUSH 0.9% 10 ML SYRINGE IVP PRN (22:02)
[2021-12-06] MEDS: LORazepam 2 MG/ML VIAL IVP PRN ×3 (00:50→23:33)
[2021-12-06] MEDS: SODIUM CHLORIDE FLUSH 0.9% 10 ML SYRINGE IVP SCH ×4 (01:02→23:37)
[2021-12-06] MEDS: HYDROcod/ACETAM 5/325 MG TABLET PO PRN ×2 (01:42→08:21)
[2021-12-06] MEDS: chlordiazePOXIDE 5 MG CAPSULE PO SCH (06:43)
[2021-12-06] MEDS: THIAMINE INJ 500 MG in SODIUM CHLORIDE 0.9% 50 ML IV SCH (06:44)
[2021-12-06 07:37] LABS: BASOPHILS # (AUTO) 0.1 10^3/uL (0.0-0.1); BASOPHILS % (AUTO) 1.8 %; EOSINOPHILS % (AUTO) 0.3 %; HCT - HEMATOCRIT 40.2 % (42.0-52.0); HGB - HEMOGLOBIN 13.2 g/dL (14.0-18.0); LYMPHOCYTES # (AUTO) 1.2 10^3/uL (1.5-3.5); LYMPHOCYTES % (AUTO) 36.8 %; MEAN CORPUSCULAR HEMOGLOBIN 32.4 pg (27.0-31.0); MEAN CORPUSCULAR HGB CONC 32.8 g/dL (32.0-36.0); MEAN CORPUSCULAR VOLUME 98.8 fL (80.0-94.0); MEAN PLATELET VOLUME 12.6 fL (7.4-11.4); MONOCYTES # (AUTO) 0.6 10^3/uL (0.0-1.0); MONOCYTES % (AUTO) 17.6 %; NEUTROPHILS # (AUTO) 1.4 10^3/uL (1.5-6.6); NEUTROPHILS % (AUTO) 43.2 %; PLT - PLATELET COUNT 203 10^3/uL (130-450); RED BLOOD COUNT 4.07 10^6/uL (4.70-6.10); RED CELL DISTRIBUTION WIDTH 14.2 % (12.0-15.0); WHITE BLOOD COUNT 3.3 x10^3/uL (4.8-10.8)
[2021-12-06 07:53] LABS: ALBUMIN 3.5 g/dL (3.2-5.5); ALBUMIN/GLOBULIN RATIO 1.3 (1.0-2.2); BILIRUBIN,TOTAL 0.3 mg/dL (0.2-1.0); CALCIUM 8.7 mg/dL (8.5-10.3); CREATININE 0.6 mg/dL (0.6-1.2); PHOSPHORUS 3.6 mg/dL (2.5-4.6); POTASSIUM 4.1 mmol/L (3.5-5.0); TOTAL PROTEIN 6.3 g/dL (6.7-8.2)
[2021-12-06] MEDS: HEPARIN 5,000 UNIT/ML VIAL SUBQ SCH ×2 (08:15→21:17)
[2021-12-06] MEDS: MULTIVITAMIN TABLET PO SCH (08:21)
[2021-12-06] MEDS: OLANZapine ODT 5 MG TABLET TL SCH ×2 (08:21→21:17)
[2021-12-06] MEDS: MAGNESIUM OXIDE 400 MG TABLET PO SCH (08:21)
[2021-12-06] MEDS: THIAMINE 100 MG TABLET PO SCH (08:21)
[2021-12-06] MEDS ORDERED: iohexoL-300 100 ML VIAL ONE (09:23)
--- NOTE | 2021-12-06 10:58 | CT Report ---
PROCEDURE: CT abdomen and pelvis with contrast INDICATIONS: Rising LFTs, alcoholism CONTRAST: IV CONTRAST: Isovue 300 ml: 100 PO CONTRAST: *NO PO CONTRAST TECHNIQUE: After the administration of contrast, 5 mm thick sections acquired from the diaphragms to the sym physis. 5 mm thick coronal and sagittal reformats were acquired. For radiation dose reduction, the following was used: automated exposure control, adjustment of mA and/or kV according to patient size . COMPARISON: None. FINDINGS: Image quality: Excellent. ABDOMEN: Lung bases: Lung bases are clear. Heart size is normal. Solid organs: Liver shows diffusely decreased attenuation without focal mass lesion. Portal vein is 1.2 cm in diameter without evidence of thrombus. Spleen unremarkable. Gallbladder contracted but oth erwise unremarkable. Biliary system is non dilated. Pancreas enhances normally. No adrenal nodules . Kidneys demonstrate normal size and enhancement, without hydronephrosis. Peritoneum and bowel: Bowel loops demonstrate normal wall thickness and caliber. No free fluid or a ir. Normal appendix identified Nodes and vessels: No retroperitoneal or mesenteric adenopathy by size criteria. Aorta and inferior vena cava are normal in size. Atherosclerotic calcification of the abdominal aorta without evidence of aneurysm. Miscellaneous: No ventral hernias. PELVIS: Genitourinary: Bladder wall thickness is normal. Miscellaneous: No inguinal hernias or adenopathy. Bones: No suspicious bony lesions. No vertebral body compression fractures. IMPRESSION: 1. Hepatic fatty infiltration without focal mass lesion. No evidence of portal venous hypertension. Reviewed by: Humberto Becerril MD on 12/06/2021 9:56 AM [facility] Approved by: Humberto Becerril MD on 12/06/2021 9:56 AM [facility] Station ID: [id number]
--- NOTE | 2021-12-06 11:00 | XRAY Report ---
PROCEDURE: Chest 1 View X-Ray INDICATIONS: COVID pos TECHNIQUE: One view of the chest was acquired. COMPARISON: 12/01/2021 FINDINGS: Surgical changes and devices: None. Lungs and pleura: No pleural effusions or pneumothorax. Lungs are clear. There is elevation left h emidiaphragm Mediastinum: Mediastinal contours appear normal. Heart size is normal. Bones and chest wall: No suspicious bony lesions. Overlying soft tissues appear unremarkable. IMPRESSION: No acute cardiopulmonary findings Reviewed by: Humberto Becerril MD on 12/06/2021 9:58 AM [facility] Approved by: Humberto Becerril MD on 12/06/2021 9:58 AM [facility] Station ID: [id number]
--- NOTE | 2021-12-06 16:35 | PROVIDER PROGRESS NOTE ---
Assessment/Plan - Problem List (1) Altered mental status Assessment/Plan: Encephalopathy is multifactorial: due to Chronic alcoholism and presumed Wernicke's encephalopathy, from acute iv Ativan dosing and from being on Librium for alcohol withdrawal, possibly also some Delirium in the setting of alcohol w ithdrawal. His ammonia level has been normal, but is increasing (12>> 14>> 23 today). Will support with iv fluids until he is more alert. Will decrease his Librium dose/taper it down quickly. Will follow ammonia level and start Lactulose if ammonia elevated. I spoke to his daughter Solitario [phone] and updated her on his entire condition yesterday. She gave additional info that he lived in an RV with black mold on [place], before being in [facility]. (2) Wernicke-Korsakoff syndrome (alcoholic) Assessment/Plan: This is his presumed underlying problem. Continue with iv Thiamine, Banana Bag for iv hydration, then po Thiamine when taking po diet. We are still awaiting a formal evaluation by physical therapy reagrding probable ataxia, but he has been asleep every time that PT arrives to see him. Will decrease his Librium dose/taper it down nore quickly. (3) Alcohol abuse Assessment/Plan: He has laboratory abnormalities including mild coagulopathy, anemia, leukopenia, abnormal LFTs likely secondary to chronic alcoholism/liver disease/liver synthetic dysfunction and alcohol induced bone marrow suppression. Continue Banana Bag iv, then Thiamine po. Will continue Librium, but will decrease his Librium dose/taper it down quickly. Continue CIWA protocol When medically stable, will ask for SW consult re alcohol abuse. (4) Alcoholic cirrhosis Assessment/Plan: His AST/ALT are even further elevated this morning, without significant elevation of Lipase, bili or Alk Phos. No evidence of shock liver or hepatorenal syndrome. He therefiore had CT imagimg of abd/pelvis and this showed no evidence of pancretitis, any abcsess, or hepatic vbein thrombosis. But an abnormal libver was seen, suggesting cirrhosis is the cause. Avoid heaptotoxins Will follow ammonia level daily and start Lactulose if ammonia elevated. Follow LFTs until they decline (5) Fall Assessment/Plan: According to Hx, he had several falls while in [facility]. There was no fracture or brain hemorrhage by [address]. Needs assessment by PT regarding probable ataxia from Wernicke's encephalopathy. He has been too sleepy to have PT eval. Will also check orthostatic VS. (6) Forehead contusion Assessment/Plan: Closed head injury with normal CT scan of head and C-spine. Will offer pain meds if needed. (7) COVID-19 Assessment/Plan: Covid positive with out respiratory symptoms, but WBC is dropping since admission (4.4>>3.6>>3.3 today). Doubt this is Covid encephalopathy. Monitor vital signs, oxygen saturation. Will consider starting specific Covid treatment with Remdesivir and Decadron, if he becomes a candidate. (8) Thyroid nodule Assessment/Plan: Thyroid nodule/incidental finding, normal TSH, will require dedicated thyroid ultrasound (9) Homeless single person Assessment/Plan: As per SW asssessment today; he was living in his car until he went to [facility], and he does not know where his car is. - Current Meds Current Meds: Current Medications Generic Name Dose Route Start Last Admin Trade Name Freq PRN Reason Stop Dose Admin Heparin Sodium (Porcine) 5,000 unit 12/05/21 09:00 12/06/21 08:15 Heparin 5,000 Unit/Ml Vial SUBQ 5,000 unit BID MARY Administration Sodium Chloride 250 mls @ 20 mls/hr 12/05/21 14:51 12/05/21 23:05 Normal Saline 0.9% IV Infused Q24H PRN Infusion TKO RATE Lorazepam 1 mg 12/04/21 21:13 12/06/21 00:50 Lorazepam 2 Mg/Ml Vial IVP 1 mg Q1HR PRN Administration CIWA >8 Protocol Magnesium Oxide 400 mg 12/05/21 09:00 12/06/21 08:21 Magnesium Oxide 400 Mg Tablet PO 400 mg DAILY MARY Administration Multivitamins 1 tab 12/05/21 09:00 12/06/21 08:21 Multivitamin Tablet PO 1 tab DAILY MARY Administration Olanzapine 5 mg 12/04/21 22:00 12/06/21 08:21 Olanzapine Odt 5 Mg Tablet TL 5 mg BID MARY Administration Sodium Chloride 10 ml 12/04/21 21:17 12/05/21 22:02 Sodium Chloride Flush 0.9% 10 Ml Syringe IVP 10 ml PRN PRN Administration NEEDED PER PROVIDER ORDERS Sodium Chloride 10 ml 12/05/21 01:00 12/06/21 08:20 Sodium Chloride Flush 0.9% 10 Ml Syringe IVP 10 ml 0100,0900,1700 MARY Administration Thiamine HCl 100 mg 12/04/21 09:00 12/06/21 08:21 Thiamine 100 Mg Tablet PO 100 mg DAILY MARY Administration - Lab Result Fish Bone Diagrams: 12/06/21 07:04 12/06/21 07:04 - Additional Planning My Orders: My Active Orders 12/06/21 21:00 chlordiazePOXIDE [Librium] 10 mg PO BID 12/07/21 05:00 AMMONIA [CHEM] DAILYLAB BMP - BASIC METABOLIC PANEL [CHEM] DAILYLAB CBC - COMP BLD CT W/AUTO DIFF [HEME] DAILYLAB 12/08/21 05:00 BMP - BASIC METABOLIC PANEL [CHEM] DAILYLAB CBC - COMP BLD CT W/AUTO DIFF [HEME] DAILYLAB Subjective - Subjective Patient Reports: Other (Asleep during my rounds (again)) Objective Vital Signs: Vital Signs - 24 hr 12/05/21 12/06/21 12/06/21 17:32 00:41 07:26 Temperature 37.3 C 36.6 C 36.9 C Heart Rate [ 86 89 Brachial] Respiratory 16 16 Rate Blood Pressure 126/85 H 115/66 [Right Brachial artery] O2 Saturation 94 92 12/06/21 15:27 Temperature 36.6 C Heart Rate [ 96 Brachial] Respiratory 18 Rate Blood Pressure 95/67 [Right Brachial artery] O2 Saturation 96 Oxygen O2 Source Room air I&O (Last 24 Hrs): Intake and Output Totals x24h 12/04/21 12/05/21 12/06/21 23:59 23:59 23:59 Intake Total 940 1332 755 Output Total 1550 1455 Balance 940 -218 -700 General: Other (Thin white male, disheveled. Asleep.) HEENT: Mucous membr. moist/pink Neck: Other (Cannot eval, asleep in L lat decubitus) Neuro: Other (Asleep) Cardiovascular: Regular rate, No murmurs Respiratory: No respiratory distress, Breath sounds nml Abdomen: Normal bowel sounds, Soft Extremities: No edema, No tenderness/swelling - Results Results: Laboratory Results WBC 3.3 x10^3/uL (4.8-10.8) L 12/06/21 07:04 RBC 4.07 10^6/uL (4.70-6.10) L 12/06/21 07:04 Hgb 13.2 g/dL (14.0-18.0) L 12/06/21 07:04 Hct 40.2 % (42.0-52.0) L 12/06/21 07:04 MCV 98.8 fL (80.0-94.0) H 12/06/21 07:04 MCH 32.4 pg (27.0-31.0) H 12/06/21 07:04 MCHC 32.8 g/dL (32.0-36.0) 12/06/21 07:04 RDW 14.2 % (12.0-15.0) 12/06/21 07:04 Plt Count 203 10^3/uL (130-450) 12/06/21 07:04 MPV 12.6 fL (7.4-11.4) H 12/06/21 07:04 Neut # (Auto) 1.4 10^3/uL (1.5-6.6) L 12/06/21 07:04 Lymph # (Auto) 1.2 10^3/uL (1.5-3.5) L 12/06/21 07:04 [place] # (Auto) 0.6 10^3/uL (0.0-1.0) 12/06/21 07:04 Eos # (Auto) 0.0 10^3/uL (0.0-0.7) 12/06/21 07:04 Baso # (Auto) 0.1 10^3/uL (0.0-0.1) 12/06/21 07:04 Absolute Nucleated RBC 0.00 x10^3/uL 12/06/21 07:04 Nucleated RBC % 0.0 /100WBC 12/06/21 07:04 PT 15.1 secs (9.9-12.6) H 12/04/21 23:33 INR 1.4 (0.8-1.2) H 12/04/21 23:33 APTT 24.8 secs (24.9-33.3) L 12/03/21 18:20 Sodium 135 mmol/L (135-145) 12/06/21 07:04 Potassium 4.1 mmol/L (3.5-5.0) 12/06/21 07:04 Chloride 101 mmol/L (101-111) 12/06/21 07:04 Carbon Dioxide 26 mmol/L (21-32) 12/06/21 07:04 Anion Gap 8.0 (6-13) 12/06/21 07:04 BUN 11 mg/dL (6-20) 12/06/21 07:04 Creatinine 0.6 mg/dL (0.6-1.2) 12/06/21 07:04 Estimated GFR (MDRD) 137 (>89) 12/06/21 07:04 Glucose 85 mg/dL (70-100) 12/06/21 07:04 Calcium 8.7 mg/dL (8.5-10.3) 12/06/21 07:04 Phosphorus 3.6 mg/dL (2.5-4.6) 12/06/21 07:04 Magnesium 2.0 mg/dL (1.7-2.8) 12/06/21 07:04 Total Bilirubin 0.3 mg/dL (0.2-1.0) 12/06/21 07:04 AST 507 IU/L (10-42) H 12/06/21 07:04 ALT 431 IU/L (10-60) H 12/06/21 07:04 Alkaline Phosphatase 75 IU/L (42-121) 12/06/21 07:04 Ammonia 23.9 umol/L (7-35) 12/06/21 07:04 Total Protein 6.3 g/dL (6.7-8.2) L 12/06/21 07:04 Albumin 3.5 g/dL (3.2-5.5) 12/06/21 07:04 Globulin 2.8 g/dL (2.1-4.2) 12/06/21 07:04 Albumin/Globulin Ratio 1.3 (1.0-2.2) 12/06/21 07:04 Lipase 28 U/L (22-51) 12/06/21 07:04 Whole Bld Vitamin B1 TNP 12/04/21 16:52 TSH 1.25 uIU/mL (0.34-5.60) 12/03/21 18:20 Urine Color YELLOW 12/03/21 18:26 Urine Clarity CLEAR (CLEAR) 12/03/21 18:26 Urine pH 6.5 PH (5.0-7.5) 12/03/21 18:26 Ur Specific [place] 1.020 (1.002-1.030) 12/03/21 18:26 Urine Protein NEGATIVE mg/dL (NEGATIVE) 12/03/21 18:26 Urine Glucose (UA) NEGATIVE mg/dL (NEGATIVE) 12/03/21 18: Urine Ketones NEGATIVE mg/dL (NEGATIVE) 12/03/21 18:26 Urine Occult Blood NEGATIVE (NEGATIVE) 12/03/21 18: Urine Nitrite NEGATIVE (NEGATIVE) 12/03/21 18: Urine Bilirubin NEGATIVE (NEGATIVE) 12/03/21 18: Urine Urobilinogen 0.2 (NORMAL) E.U./dL (NORMAL) 12/03/21 18:26 Ur Leukocyte Esterase NEGATIVE (NEGATIVE) 12/03/21 18:26 Ur Microscopic Review NOT INDICATED 12/03/21 18:26 Urine Culture Comments NOT INDICATED 12/03/21 18:26 Nasal Adenovirus (PCR) NOT DETECTED 12/03/21 18:10 Nasal B. parapertussis DNA (PCR) NOT DETECTED 12/03/21 18:10 Nasal Coronavir 229E PCR NOT DETECTED 12/03/21 18:10 Nasal Coronavir HKU1 PCR NOT DETECTED 12/03/21 18:10 Nasal Coronavir NL63 PCR NOT DETECTED 12/03/21 18:10 Nasal Coronavir OC43 PCR NOT DETECTED 12/03/21 18:10 Nasal Enterovir/Rhinovir PCR NOT DETECTED 12/03/21 18:10 Nasal Influenza B PCR NOT DETECTED 12/03/21 18:10 Nasal Influenza A PCR NOT DETECTED 12/03/21 18:10 Nasal Parainfluen 1 PCR NOT DETECTED 12/03/21 18:10 Nasal Parainfluen 2 PCR NOT DETECTED 12/03/21 18:10 Nasal Parainfluen 3 PCR NOT DETECTED 12/03/21 18:10 Nasal Parainfluen 4 PCR NOT DETECTED 12/03/21 18:10 Nasal RSV (PCR) NOT DETECTED 12/03/21 18:10 Nasal B.pertussis DNA PCR NOT DETECTED 12/03/21 18:10 Nasal C.pneumoniae (PCR) NOT DETECTED 12/03/21 18:10 Juan Daniel Human Metapneumo PCR NOT DETECTED 12/03/21 18:10 Nasal M.pneumoniae (PCR) NOT DETECTED 12/03/21 18:10 Nasal SARS-CoV-2 (PCR) DETECTED A 12/03/21 18:10 Salicylates < 6.0 mg/dL 12/03/21 18:20 Urine Opiates Screen NEGATIVE (NEGATIVE) 12/03/21 18:26 Ur Oxycodone Screen NEGATIVE (NEGATIVE) 12/03/21 18:26 Urine Methadone Screen NEGATIVE (NEGATIVE) 12/03/21 18:26 Ur Propoxyphene Screen NEGATIVE (NEGATIVE) 12/03/21 18:26 Acetaminophen < 10 ug/mL (10-30) L 12/03/21 18:20 Ur Barbiturates Screen NEGATIVE (NEGATIVE) 12/03/21 18:26 Ur Tricyclics Screen NEGATIVE (NEGATIVE) 12/03/21 18:26 Ur Phencyclidine Scrn NEGATIVE (NEGATIVE) 12/03/21 18:26 Ur Amphetamine Screen NEGATIVE (NEGATIVE) 12/03/21 18:26 U Methamphetamines Scrn NEGATIVE (NEGATIVE) 12/03/21 18:26 U Benzodiazepines Scrn POSITIVE (NEGATIVE) H 12/03/21 18:26 Urine Cocaine Screen NEGATIVE (NEGATIVE) 12/03/21 18:26 U Cannabinoids Screen NEGATIVE (NEGATIVE) 12/03/21 18:26 Ethyl Alcohol < 5.0 mg/dL 12/03/21 18:20
[2021-12-06] MEDS ORDERED: iohexoL-300 100 ML VIAL IVP ONE (16:42)
[2021-12-06] MEDS ORDERED: chlordiazePOXIDE 5 MG CAPSULE PO SCH (21:00)
[2021-12-07] MEDS: LORazepam 2 MG/ML VIAL IVP PRN ×12 (00:16→14:32)
[2021-12-07] MEDS: chlordiazePOXIDE 25 MG CAPSULE PO SCH ×3 (01:08→20:26)
[2021-12-07 07:40] LABS: BASOPHILS # (AUTO) 0.1 10^3/uL (0.0-0.1); BASOPHILS % (AUTO) 2.1 %; EOSINOPHILS % (AUTO) 0.9 %; HCT - HEMATOCRIT 41.1 % (42.0-52.0); HGB - HEMOGLOBIN 13.4 g/dL (14.0-18.0); LYMPHOCYTES # (AUTO) 1.1 10^3/uL (1.5-3.5); LYMPHOCYTES % (AUTO) 32.8 %; MEAN CORPUSCULAR HEMOGLOBIN 32.2 pg (27.0-31.0); MEAN CORPUSCULAR HGB CONC 32.6 g/dL (32.0-36.0); MEAN CORPUSCULAR VOLUME 98.8 fL (80.0-94.0); MEAN PLATELET VOLUME 12.1 fL (7.4-11.4); MONOCYTES # (AUTO) 0.8 10^3/uL (0.0-1.0); MONOCYTES % (AUTO) 23.1 %; NEUTROPHILS # (AUTO) 1.4 10^3/uL (1.5-6.6); NEUTROPHILS % (AUTO) 41.1 %; PLT - PLATELET COUNT 181 10^3/uL (130-450); RED BLOOD COUNT 4.16 10^6/uL (4.70-6.10); WHITE BLOOD COUNT 3.3 x10^3/uL (4.8-10.8)
[2021-12-07 07:48] LABS: CALCIUM 8.3 mg/dL (8.5-10.3); CREATININE 0.6 mg/dL (0.6-1.2); POTASSIUM 3.8 mmol/L (3.5-5.0)
[2021-12-07] MEDS: HEPARIN 5,000 UNIT/ML VIAL SUBQ SCH ×2 (08:13→21:06)
[2021-12-07] MEDS: THIAMINE 100 MG TABLET PO SCH (08:18)
[2021-12-07] MEDS: MAGNESIUM OXIDE 400 MG TABLET PO SCH (08:18)
[2021-12-07] MEDS: MULTIVITAMIN TABLET PO SCH (08:18)
[2021-12-07] MEDS: SODIUM CHLORIDE FLUSH 0.9% 10 ML SYRINGE IVP SCH ×2 (08:18→17:50)
[2021-12-07 08:43] LABS: ALBUMIN 3.4 g/dL (3.2-5.5); BILIRUBIN,DIRECT 0.1 mg/dL (0.1-0.5); BILIRUBIN,TOTAL 0.5 mg/dL (0.2-1.0); TOTAL PROTEIN 6.5 g/dL (6.7-8.2)
[2021-12-07] MEDS: SODIUM CHLORIDE FLUSH 0.9% 10 ML SYRINGE IVP PRN ×3 (08:44→13:24)
[2021-12-07] MEDS ORDERED: LORazepam 2 MG/ML VIAL IVP PRN (14:49)
--- NOTE | 2021-12-07 15:55 | PROVIDER PROGRESS NOTE ---
Assessment/Plan - Problem List (1) Altered mental status Assessment/Plan: Encephalopathy is multifactorial: probable underlying psychosis given his hallucinations today, and due to chronic alcoholism-caused presumed Wernicke's encephalopathy, also from acute iv Ativan dosing and from being on Librium for a lcohol withdrawal. His ammonia level has been normal. Will decrease his Librium dose/taper it down quickly. Will follow ammonia level and start Lactulose if ammonia elevated. Will add antipsychotic meds and obtain telepsych eval. (2) Wernicke-Korsakoff syndrome (alcoholic) Assessment/Plan: This is his presumed underlying problem. He had a formal evaluation by physical therapy and is ataxic, but was also confused and hallucinating. Continue with po Thiamine when taking po diet. (3) Alcohol abuse Assessment/Plan: He has laboratory abnormalities including mild coagulopathy, anemia, leukopenia, abnormal LFTs likely secondary to chronic alcoholism/liver disease/liver synthetic dysfunction and alcohol induced bone marrow suppression. Banana Bag finished abd Thiamine po daily started Will continue Librium, but will decrease his Librium dose/taper it down quickly. Will stop CIWA protocol, to decrease sedation and use antipsychotics When he becomes medically stable, will ask for SW consult re alcohol abuse. (4) Alcoholic cirrhosis Assessment/Plan: His AST/ALT were rising, without significant elevation of Lipase, bili or Alk Phos. No evidence of shock liver or hepatorenal syndrome. He therefiore had CT imaging of abd/pelvis and this showed no evidence of pancretitis, any abcsess, or hepatic vbein thrombosis. But an abnormal liver was seen, suggesting cirrhosis is the cause. Avoid heaptotoxins Will follow ammonia level daily and start Lactulose if ammonia elevated. Follow LFTs, they are now declining (5) Fall Assessment/Plan: According to Hx, he had several falls while in [facility]. There was no fracture or brain hemorrhage by [address]. He had assessment by PT regarding ataxia and he is ataxic, probably from Wer nicke's encephalopathy. Orthostatic VS were ordered. (6) Forehead contusion Assessment/Plan: Closed head injury with normal CT scan of head and C-spine. Will offer pain meds if needed. (7) COVID-19 Assessment/Plan: Covid positive with out respiratory symptoms, but WBC is dropping since admission (4.4>>3.6>>3.3 today). Doubt this is Covid encephalopathy. Monitor vital signs, oxygen saturation. Will consider starting specific Covid treatment with Remdesivir and Decadron, if he becomes a candidate. (8) Thyroid nodule Assessment/Plan: Thyroid nodule/incidental finding, normal TSH, will require dedicated thyroid ultrasound (9) Homeless single person Assessment/Plan: As per SW asssessment today; he was living in his car until he went to [facility], and he does not know where his car is. - Current Meds Current Meds: Current Medications Generic Name Dose Route Start Last Admin Trade Name Freq PRN Reason Stop Dose Admin Chlordiazepoxide HCl 25 mg 12/07/21 01:00 12/07/21 08:17 Chlordiazepoxide 25 Mg Capsule PO 25 mg BID MARY Administration Heparin Sodium (Porcine) 5,000 unit 12/05/21 09:00 12/07/21 08:13 Heparin 5,000 Unit/Ml Vial SUBQ 5,000 unit BID MARY Administration Sodium Chloride 250 mls @ 20 mls/hr 12/05/21 14:51 12/05/21 23:05 Normal Saline 0.9% IV Infused Q24H PRN Infusion TKO RATE Magnesium Oxide 400 mg 12/05/21 09:00 12/07/21 08:18 Magnesium Oxide 400 Mg Tablet PO 400 mg DAILY MARY Administration Multivitamins 1 tab 12/05/21 09:00 12/07/21 08:18 Multivitamin Tablet PO 1 tab DAILY MARY Administration Sodium Chloride 10 ml 12/04/21 21:17 12/07/21 13:24 Sodium Chloride Flush 0.9% 10 Ml Syringe IVP 10 ml PRN PRN Administration NEEDED PER PROVIDER ORDERS Sodium Chloride 10 ml 12/05/21 01:00 12/07/21 08:18 Sodium Chloride Flush 0.9% 10 Ml Syringe IVP 10 ml 0100,0900,1700 MARY Administration Thiamine HCl 100 mg 12/04/21 09:00 12/07/21 08:18 Thiamine 100 Mg Tablet PO 100 mg DAILY MARY Administration - Lab Result Fish Bone Diagrams: 12/07/21 07:30 12/07/21 07:30 - Additional Planning My Orders: My Active Orders 12/06/21 16:36 Orthostatic [Vital Signs - Orthostatic] [RC] DAILY 12/07/21 15:18 Inpatient - Telepsych Set-up [RC] ONCE 12/07/21 15:48 Haloperidol Inj [Haldol Inj] 1 mg IVP Q6H PRN 12/08/21 05:00 AMMONIA [CHEM] DAILYLAB BMP - BASIC METABOLIC PANEL [CHEM] DAILYLAB CBC - COMP BLD CT W/AUTO DIFF [HEME] DAILYLAB LIVER PANEL [CHEM] DAILYLAB 12/09/21 05:00 LIVER PANEL [CHEM] DAILYLAB Subjective - Subjective Patient Reports: Other (Hallucinating: sees bugs on skin, papers on wall where there are none.) Nursing Reports: Other (He became combative; got OOB of bed last night and pinned the 1:1 monitoring [employer] to the wall. He needed sedatives and restraints were ordered. During the day he was kicking at staff.) Objective Vital Signs: Vital Signs - 24 hr 12/06/21 12/06/21 12/07/21 18:15 23:24 07:42 Temperature 37.4 C 36.7 C Heart Rate [ 87 92 Brachial] Heart Rate [ 85 Radial] Respiratory 16 16 Rate Blood Pressure 113/79 [Left Brachial artery] Blood Pressure 111/74 135/83 H [Right Brachial artery] O2 Saturation 92 100 Oxygen O2 Source Room air I&O (Last 24 Hrs): Intake and Output Totals x24h 12/05/21 12/06/21 12/07/21 23:59 23:59 23:59 Intake Total 1332 1635 450 Output Total 1550 1455 600 Balance -218 180 -150 General: Alert, Mild distress, Other (pale, disheveled) HEENT: Mucous membr. moist/pink, Other (Poor dentition) Neck: Supple Neuro: Alert, Disoriented, Non Focal Cardiovascular: Regular rate Respiratory: Breath sounds nml Abdomen: Soft Extremities: No edema, No tenderness/swelling - Results Results: Laboratory Results WBC 3.3 x10^3/uL (4.8-10.8) L 12/07/21 07:30 RBC 4.16 10^6/uL (4.70-6.10) L 12/07/21 07:30 Hgb 13.4 g/dL (14.0-18.0) L 12/07/21 07:30 Hct 41.1 % (42.0-52.0) L 12/07/21 07:30 MCV 98.8 fL (80.0-94.0) H 12/07/21 07:30 MCH 32.2 pg (27.0-31.0) H 12/07/21 07:30 MCHC 32.6 g/dL (32.0-36.0) 12/07/21 07:30 RDW 14.0 % (12.0-15.0) 12/07/21 07:30 Plt Count 181 10^3/uL (130-450) 12/07/21 07:30 MPV 12.1 fL (7.4-11.4) H 12/07/21 07:30 Neut # (Auto) 1.4 10^3/uL (1.5-6.6) L 12/07/21 07:30 Lymph # (Auto) 1.1 10^3/uL (1.5-3.5) L 12/07/21 07:30 [place] # (Auto) 0.8 10^3/uL (0.0-1.0) 12/07/21 07:30 Eos # (Auto) 0.0 10^3/uL (0.0-0.7) 12/07/21 07:30 Baso # (Auto) 0.1 10^3/uL (0.0-0.1) 12/07/21 07:30 Absolute Nucleated RBC 0.00 x10^3/uL 12/07/21 07:30 Nucleated RBC % 0.0 /100WBC 12/07/21 07:30 PT 15.1 secs (9.9-12.6) H 12/04/21 23:33 INR 1.4 (0.8-1.2) H 12/04/21 23:33 APTT 24.8 secs (24.9-33.3) L 12/03/21 18:20 Sodium 131 mmol/L (135-145) L 12/07/21 07:30 Potassium 3.8 mmol/L (3.5-5.0) 12/07/21 07:30 Chloride 100 mmol/L (101-111) L 12/07/21 07:30 Carbon Dioxide 23 mmol/L (21-32) 12/07/21 07:30 Anion Gap 8.0 (6-13) 12/07/21 07:30 BUN 13 mg/dL (6-20) 12/07/21 07:30 Creatinine 0.6 mg/dL (0.6-1.2) 12/07/21 07:30 Estimated GFR (MDRD) 137 (>89) 12/07/21 07:30 Glucose 100 mg/dL (70-100) 12/07/21 07:30 Calcium 8.3 mg/dL (8.5-10.3) L 12/07/21 07:30 Phosphorus 3.6 mg/dL (2.5-4.6) 12/06/21 07:04 Magnesium 2.0 mg/dL (1.7-2.8) 12/06/21 07:04 Total Bilirubin 0.5 mg/dL (0.2-1.0) 12/07/21 07:30 Direct Bilirubin 0.1 mg/dL (0.1-0.5) 12/07/21 07:30 AST 305 IU/L (10-42) H 12/07/21 07:30 ALT 356 IU/L (10-60) H 12/07/21 07:30 Alkaline Phosphatase 70 IU/L (42-121) 12/07/21 07:30 Ammonia 31.5 umol/L (7-35) 12/07/21 07:30 Total Protein 6.5 g/dL (6.7-8.2) L 12/07/21 07:30 Albumin 3.4 g/dL (3.2-5.5) 12/07/21 07:30 Globulin 3.1 g/dL (2.1-4.2) 12/07/21 07:30 Albumin/Globulin Ratio 1.3 (1.0-2.2) 12/06/21 07:04 Lipase 28 U/L (22-51) 12/06/21 07:04 Whole Bld Vitamin B1 TNP 12/04/21 16:52 TSH 1.25 uIU/mL (0.34-5.60) 12/03/21 18:20 Urine Color YELLOW 12/03/21 18:26 Urine Clarity CLEAR (CLEAR) 12/03/21 18:26 Urine pH 6.5 PH (5.0-7.5) 12/03/21 18:26 Ur Specific [place] 1.020 (1.002-1.030) 12/03/21 18:26 Urine Protein NEGATIVE mg/dL (NEGATIVE) 12/03/21 18:26 Urine Glucose (UA) NEGATIVE mg/dL (NEGATIVE) 12/03/21 18: Urine Ketones NEGATIVE mg/dL (NEGATIVE) 12/03/21 18:26 Urine Occult Blood NEGATIVE (NEGATIVE) 12/03/21 18:26 Urine Nitrite NEGATIVE (NEGATIVE) 12/03/21 18: Urine Bilirubin NEGATIVE (NEGATIVE) 12/03/21 18: Urine Urobilinogen 0.2 (NORMAL) E.U./dL (NORMAL) 12/03/21 18:26 Ur Leukocyte Esterase NEGATIVE (NEGATIVE) 12/03/21 18:26 Ur Microscopic Review NOT INDICATED 12/03/21 18:26 Urine Culture Comments NOT INDICATED 12/03/21 18:26 Nasal Adenovirus (PCR) NOT DETECTED 12/03/21 18:10 Nasal B. parapertussis DNA (PCR) NOT DETECTED 12/03/21 18:10 Nasal Coronavir 229E PCR NOT DETECTED 12/03/21 18:10 Nasal Coronavir HKU1 PCR NOT DETECTED 12/03/21 18:10 Nasal Coronavir NL63 PCR NOT DETECTED 12/03/21 18:10 Nasal Coronavir OC43 PCR NOT DETECTED 12/03/21 18:10 Nasal Enterovir/Rhinovir PCR NOT DETECTED 12/03/21 18:10 Nasal Influenza B PCR NOT DETECTED 12/03/21 18:10 Nasal Influenza A PCR NOT DETECTED 12/03/21 18:10 Nasal Parainfluen 1 PCR NOT DETECTED 12/03/21 18:10 Nasal Parainfluen 2 PCR NOT DETECTED 12/03/21 18:10 Nasal Parainfluen 3 PCR NOT DETECTED 12/03/21 18:10 Nasal Parainfluen 4 PCR NOT DETECTED 12/03/21 18:10 Nasal RSV (PCR) NOT DETECTED 12/03/21 18:10 Nasal B.pertussis DNA PCR NOT DETECTED 12/03/21 18:10 Nasal C.pneumoniae (PCR) NOT DETECTED 12/03/21 18:10 Juan Daniel Human Metapneumo PCR NOT DETECTED 12/03/21 18:10 Nasal M.pneumoniae (PCR) NOT DETECTED 12/03/21 18:10 Nasal SARS-CoV-2 (PCR) DETECTED A 12/03/21 18:10 Salicylates < 6.0 mg/dL 12/03/21 18:20 Urine Opiates Screen NEGATIVE (NEGATIVE) 12/03/21 18:26 Ur Oxycodone Screen NEGATIVE (NEGATIVE) 12/03/21 18:26 Urine Methadone Screen NEGATIVE (NEGATIVE) 12/03/21 18:26 Ur Propoxyphene Screen NEGATIVE (NEGATIVE) 12/03/21 18:26 Acetaminophen < 10 ug/mL (10-30) L 12/03/21 18:20 Ur Barbiturates Screen NEGATIVE (NEGATIVE) 12/03/21 18:26 Ur Tricyclics Screen NEGATIVE (NEGATIVE) 12/03/21 18:26 Ur Phencyclidine Scrn NEGATIVE (NEGATIVE) 12/03/21 18:26 Ur Amphetamine Screen NEGATIVE (NEGATIVE) 12/03/21 18:26 U Methamphetamines Scrn NEGATIVE (NEGATIVE) 12/03/21 18:26 U Benzodiazepines Scrn POSITIVE (NEGATIVE) H 12/03/21 18:26 Urine Cocaine Screen NEGATIVE (NEGATIVE) 12/03/21 18:26 U Cannabinoids Screen NEGATIVE (NEGATIVE) 12/03/21 18:26 Ethyl Alcohol < 5.0 mg/dL 12/03/21 18:20
[2021-12-07] MEDS: OLANZapine ODT 5 MG TABLET TL SCH (20:26)
[2021-12-07] MEDS: HALOPERIDOL 5 MG/ML VIAL IVP PRN (20:26)
--- NOTE | 2021-12-07 23:03 | TELEPSYCH PHYS NOTE ---
Telepsych Consultation Note Consult: Name: Casa Wall :58 Date: 12/08/21 Time:1:05am Location of patient:[facility] Location of doctor:[facility] Length of consult:55min This evaluation was conducted via telepsychiatry with the assistance of onsite staff Reason for consult: MSchanges Requested by: Maxine Melchor History of Present Illness: 61y/o male with h/o alcohol use d/o [facility], ataxia and covid positive. Pt unable to provide complete history due to confusion. He says his mood is alright and that sleep and appetite are okay. He denied suicidal or homicidal thoughts. He denied h/o harm to self but when asked about violence, stated, I cant say I did or didnt. He says his energy is poor. He admits to alcohol abuse and said he had been through detox before but was not able to clarify any further. He was quite confused. He did consent to speak with his sister for further history but was unable to provide any contact information. Collateral contacted unable to attain information tank worker spoke with Kiana [phone] to follow up. Kiana is currently out of state for work and will not return until Wednesday. She states that when she had previously agreed to take patient home, she was unaware he was COVID positive and hadn't spoken with her about it. Kiana has an autoimmune disease and provides care for her young grandchildren. Kiana became tearful and states she has tried to care for the patient but cannot meet his care needs. She is unable to prevent him for obtaining alcohol due to his level of determination. She has one brother and four sisters. Her other brother and two of her sisters have cut ties with the patient, one sister in [place] unable to help, and another sister, Debbie, lives in [place]. Kiana and Debbie have been working for several weeks to locate a hospital or treatment center that can meet patient's needs, but have been unsuccessful. Kiana expressed concerns that patient has alcohol induced dementia and is not aware of what he is doing. Kiana continued to be tearful and stated her observation of a continuous cycle with the patient. The patient will drink excessively, end up in the hospital or fci, be released, attempt to return to his ex-'s property, then begin the cycle again. She expressed frustration that patient has not been placed in a hospital or treatment center for his alcohol use. tank worker validated her frustrations and set expectations. She expressed understanding. Kiana stated if patient were to go to a quarantine hotel, he would leave to find alcohol. Sleep issues: poor sleep per patient Psychiatric History/Treatment History: Past diagnoses:unknown Hospitalizations: unknown Current Treatment: Librium and Ativan for detox Suicide Assessment: PSS-3: 1) Over the past 2 weeks have you felt down, depressed or hopeless? denied 2) Over the past 2 weeks have you had thoughts of killing yourself? denied 3) Have you ever in your life attempted to kill yourself? denied If yes, then when? Within the past 24h? (Y/N), past month? (Y/N), between 1- 6 months (Y/N), > 6 months (Y/N) PSS-3 Secondary Screen If #2 is yes or #3 is yes within the past 6 months, then complete secondary screen: 1) Positive on PSS-3 questions 2 & 3 active SI with a past attempt? denied 2) Have you been thinking about how you might kill yourself? denied 3) Have you had some intention of acting on your thoughts? denied 4) Lifetime psychiatric hospitalization? unknown 5) Has drinking or substance abuse ever been a problem for you? yes 6) Current irritability, agitation, or aggression? no PSS-3 Secondary Screen Scoring: (Mild/Moderate/Severe) Mild (0-2) No current attempt and no plan/intent [employer] ([employer])-based Safety Assessment: Risk Factors Stressors: legal issues Attempts/Self-injury: denied Impulsivity: unknown Drug/Alcohol History:alcohol abuse Trauma history: unknown Access to firearms: unknown HI/Violence/Property destruction: unknown Legal: pending Family Psych History: unknown Family History of suicide: unknown Protective Factors Internal: none External: Social supports/ Therapeutic relationships: I have 5 sisters Relationship history:Pt says he is with 2 kids that h said he was going through therapy to get back. 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 Education: unknown Responsibility to family/children/work: yes Future orientation: unknown Medical History: alcohol use d/o covid Medications & Freq: Generic Name Dose Route Start Last Admin Trade Name Freq PRN Reason Stop Dose Admin Chlordiazepoxide HCl 25 mg 12/07/21 01:00 12/07/21 08:17 Chlordiazepoxide 25 Mg Capsule PO 25 mg BID MARY Administration Heparin Sodium (Porcine) 5,000 unit 12/05/21 09:00 12/07/21 08:13 Heparin 5,000 Unit/Ml Vial SUBQ 5,000 unit BID MARY Administration Sodium Chloride 250 mls @ 20 mls/hr 12/05/21 14:51 12/05/21 23:05 Normal Saline 0.9% IV Infused Q24H PRN Infusion TKO RATE Magnesium Oxide 400 mg 12/05/21 09:00 12/07/21 08:18 Magnesium Oxide 400 Mg Tablet PO 400 mg DAILY MARY Administration Multivitamins 1 tab 12/05/21 09:00 12/07/21 08:18 Multivitamin Tablet PO 1 tab DAILY MARY Administration Sodium Chloride 10 ml 12/04/21 21:17 12/07/21 13:24 Sodium Chloride Flush 0.9% 10 Ml Syringe IVP 10 ml PRN PRN Administration NEEDED PER PROVIDER ORDERS Sodium Chloride 10 ml 12/05/21 01:00 12/07/21 08:18 Sodium Chloride Flush 0.9% 10 Ml Syringe IVP 10 ml 0100,0900,1700 MARY Administration Thiamine HCl 100 mg 12/04/21 09:00 12/07/21 08:18 Thiamine 100 Mg Tablet PO 100 mg DAILY MARY Administration Allergies: PCN Mental Status Exam: Appearance and attire: thin, unkempt Attitude and behavior: confused but cooperative Psychomotor agitation/abnormal movements:none noted, pt in bed Speech: delayed, mumbling incoherently at times Affect and mood: alright with a calm affect Association and thought processes: confused, tangential, not always related to question posed. Thought content: denied suicidal or homicidal thoughts Perception: unable to assess Sensorium, memory, and orientation: confused and disoriented Intellectual functioning: average Insight and judgment: poor, unaware Impression/Risk Assessment: Current Suicide Risk (no Current Violence Risk (no Ability to care for self: no Summary: 61y/o male with long h/o alcohol use d/o currently inpatient with [facility]. Pt presents as confused, disoriented, and lacks capacity for medical decision making. He presents pleasant but is not able to fully engage in the assessment. Family has reported concerns that pt has a long h/o alcohol abuse. Pt does not appear able to care for his own needs at this time. Diagnosis: Carmen Cedenokoffs Alcohol use d/o CPT code:75774 Treatment Plan Patient lacks capacity for medical decision making and does not appear able to care for his own needs at this time. Recommend a guardian be appointed on his behalf to assist with medical decision making and placement. Level of Care: continue current level of care Psychiatric Clearance: no Observation level 1:1 needed?: yes Pharmacological: Agree with plan for MVI with thiamin and folate supplements Recommend taper off Librium and use Ativan for further detox due to elevated hepatic enzymes Zyprexa 5mg po/im q 4h prn agitation/psychosis NTE 40mg qd. Monitor QTC and hold if over 500 Patient psychotic? yes Therapy: supportive, substance Follow up needed while in hospital?: Please consult psych as needed Discussed plan with onsite support team assoc, who? nurse Signature: Printed Name: Liss Monique MD List names and roles of persons who participated in consult: Casa and Dr Monique
[2021-12-07] MEDS ORDERED: LORazepam 1 MG TABLET PO SCH (23:45)
[2021-12-08] MEDS: SODIUM CHLORIDE FLUSH 0.9% 10 ML SYRINGE IVP SCH ×3 (00:03→22:55)
--- NOTE | 2021-12-08 01:17 | PROVIDER PROGRESS NOTE ---
Assessment/Plan - Problem List (1) Altered mental status Qualifiers: Altered mental status type: delirium Qualified Code(s): R41.0 - Disorientation, unspecified Assessment/Plan: Summary: 61-year-old male with past medical history of chronic alcoholism was admitted 3 days ago, after released from correctional facility. Noted with AMS, frequent falls, hallucination, ataxia consistent with multifactorial encephalopathy. Interval follow-up: During the past 24 hours the patient remained encephalopathic, his mentation has not improved meaningfully. He was either somnolent and lethargic or when awake psychotic and aggressive. Had multiple outbursts requiring restraints. Was noted with continued hallucinations. Received telemetry psych consultation. Active issues/diagnoses: Encephalopathy multifactorial Chronic alcoholism/Wernicke's encephalopathy/Alcoholic dementia Subacute alcohol withdrawal Delirium in the setting of alcohol withdrawal plus being medicated with benzodiazepine and antipsychotic meds Has not improved or changed much during the hospital stay despite being treated for alcohol withdrawal for over 2 weeks and receiving high dose thiamine replacement with multiple adjustments of psychoactive medications. Patient remains either somnolent or agitated, has not shown normal mentation or any functional ability. Likely as a chronic alcoholic his baseline function is limited. Due to Wernicke's Korsakoff dementia the mental status we see is likely near his baseline. Patient received telemetry psych consultation, for details I refer to the chart note. Plan: One-to-one sitter as needed Adjusted psychoactive medications, reducing Librium, using as needed Ativan IV and continuing with small dose Zyprexa nightly Guardianship was recommended as per psychiatrist assessment the patient lacks decision-making capacity, social work is already consulted and follows Laboratory abnormalities including mild coagulopathy, anemia, leukopenia, abnormal LFTs likely secondary to chronic alcoholism/liver disease/liver synthetic dysfunction and alcohol induced bone marrow suppression Malnutrition/alcoholic dementia with cachexia Frequent falls Closed head injury with normal CT scan Thyroid nodule/incidental finding, normal TSH, will require dedicated thyroid ultrasound Covid positive without respiratory symptoms/Not likely Covid encephalopathy Homelessness/psychosocial issues Summary/plan/orders: Inpatient One-to-one observation prn, nonviolent restraints as needed /Adjusted psychoactive medications reducing Librium, using Ativan as needed and Zyprexa nightly Completing 3 days IV thiamine therapy Social work consult for placement PT/OT evaluation Isolation for Covid/No hypoxia, no symptoms, does not require oxygen or specific therapy DVT prophylaxis both pharmacologic and mechanical as tolerated - Current Meds Current Meds: Current Medications Generic Name Dose Route Start Last Admin Trade Name Freq PRN Reason Stop Dose Admin Haloperidol 1 mg 12/07/21 15:48 12/07/21 20:26 Haloperidol 5 Mg/Ml Vial IVP 1 mg Q6H PRN Administration Agitation Heparin Sodium (Porcine) 5,000 unit 12/05/21 09:00 12/07/21 21:06 Heparin 5,000 Unit/Ml Vial SUBQ 5,000 unit BID MARY Administration Sodium Chloride 250 mls @ 20 mls/hr 12/05/21 14:51 12/05/21 23:05 Normal Saline 0.9% IV Infused Q24H PRN Infusion TKO RATE Magnesium Oxide 400 mg 12/05/21 09:00 12/07/21 08:18 Magnesium Oxide 400 Mg Tablet PO 400 mg DAILY MARY Administration Multivitamins 1 tab 12/05/21 09:00 12/07/21 08:18 Multivitamin Tablet PO 1 tab DAILY MARY Administration Olanzapine 5 mg 12/07/21 21:00 12/07/21 20:26 Olanzapine Odt 5 Mg Tablet TL 5 mg HS MARY Administration Sodium Chloride 10 ml 12/04/21 21:17 12/07/21 13:24 Sodium Chloride Flush 0.9% 10 Ml Syringe IVP 10 ml PRN PRN Administration NEEDED PER PROVIDER ORDERS Sodium Chloride 10 ml 12/05/21 01:00 12/08/21 00:03 Sodium Chloride Flush 0.9% 10 Ml Syringe IVP 10 ml 0100,0900,1700 MARY Administration Thiamine HCl 100 mg 12/04/21 09:00 12/07/21 08:18 Thiamine 100 Mg Tablet PO 100 mg DAILY MRAY Administration - Lab Result Fish Bone Diagrams: 12/07/21 07:30 12/07/21 07:30 - Additional Planning Condition/Complexity: Stable My Orders: My Active Orders 12/07/21 21:00 OLANZapine ODT [ZyPREXA ODT] 5 mg TL HS 12/07/21 23:16 LORazepam INJ [Ativan Inj (Vial)] 1 mg IVP Q2H PRN 12/08/21 01:12 1:1 Safety Observation [OTHERS] PRN 12/08/21 21:00 chlordiazePOXIDE [Librium] 25 mg PO HS Consult/Specialty: Psychiatry Time Spent: 15-30 minutes Subjective - Subjective Patient Reports: Other (During the past 24 hours the patient remained without much change or improvement of his encephalopathy. He could not meaningfully interact, remained confused, noted hallucinating and psychotic. Had multiple aggressive outbreaks requiring restraints.) Nursing Reports: Other (Reviewed) Objective Vital Signs: Vital Signs - 24 hr 12/07/21 12/07/21 12/07/21 07:42 16:33 18:18 Temperature 36.7 C 36.6 C 36.6 C Heart Rate [ 80 Brachial] Heart Rate [ 85 Radial] Respiratory 16 20 20 Rate Blood Pressure 113/79 [Left Brachial artery] Blood Pressure 118/93 H [Right Brachial artery] O2 Saturation 100 97 97 12/07/21 23:21 Temperature 36.5 C Heart Rate [ 89 Brachial] Heart Rate [ Radial] Respiratory 16 Rate Blood Pressure [Left Brachial artery] Blood Pressure 118/93 H [Right Brachial artery] O2 Saturation 95 Oxygen O2 Source Room air I&O (Last 24 Hrs): Intake and Output Totals x24h 12/06/21 12/07/21 12/08/21 23:59 23:59 23:59 Intake Total 1635 920 Output Total 1455 900 Balance 180 20 General: No acute distress, Other (Thin, skin and bones, cachectic male somnolent at the time of my exam) HEENT: Mucous membr. moist/pink Neck: Supple Neuro: Disoriented, Non Focal, CN 2-12 Grossly Intact Cardiovascular: Regular rate, Normal S1, Normal S2 Respiratory: No respiratory distress Abdomen: Normal bowel sounds Skin: No rashes - Results Results: Laboratory Results WBC 3.3 x10^3/uL (4.8-10.8) L 12/07/21 07:30 RBC 4.16 10^6/uL (4.70-6.10) L 12/07/21 07:30 Hgb 13.4 g/dL (14.0-18.0) L 12/07/21 07:30 Hct 41.1 % (42.0-52.0) L 12/07/21 07:30 MCV 98.8 fL (80.0-94.0) H 12/07/21 07:30 MCH 32.2 pg (27.0-31.0) H 12/07/21 07:30 MCHC 32.6 g/dL (32.0-36.0) 12/07/21 07:30 RDW 14.0 % (12.0-15.0) 12/07/21 07:30 Plt Count 181 10^3/uL (130-450) 12/07/21 07:30 MPV 12.1 fL (7.4-11.4) H 12/07/21 07:30 Neut # (Auto) 1.4 10^3/uL (1.5-6.6) L 12/07/21 07:30 Lymph # (Auto) 1.1 10^3/uL (1.5-3.5) L 12/07/21 07:30 [place] # (Auto) 0.8 10^3/uL (0.0-1.0) 12/07/21 07:30 Eos # (Auto) 0.0 10^3/uL (0.0-0.7) 12/07/21 07:30 Baso # (Auto) 0.1 10^3/uL (0.0-0.1) 12/07/21 07:30 Absolute Nucleated RBC 0.00 x10^3/uL 12/07/21 07:30 Nucleated RBC % 0.0 /100WBC 12/07/21 07:30 PT 15.1 secs (9.9-12.6) H 12/04/21 23:33 INR 1.4 (0.8-1.2) H 12/04/21 23:33 APTT 24.8 secs (24.9-33.3) L 12/03/21 18:20 Sodium 131 mmol/L (135-145) L 12/07/21 07:30 Potassium 3.8 mmol/L (3.5-5.0) 12/07/21 07:30 Chloride 100 mmol/L (101-111) L 12/07/21 07:30 Carbon Dioxide 23 mmol/L (21-32) 12/07/21 07:30 Anion Gap 8.0 (6-13) 12/07/21 07:30 BUN 13 mg/dL (6-20) 12/07/21 07:30 Creatinine 0.6 mg/dL (0.6-1.2) 12/07/21 07:30 Estimated GFR (MDRD) 137 (>89) 12/07/21 07:30 Glucose 100 mg/dL (70-100) 12/07/21 07:30 Calcium 8.3 mg/dL (8.5-10.3) L 12/07/21 07:30 Phosphorus 3.6 mg/dL (2.5-4.6) 12/06/21 07:04 Magnesium 2.0 mg/dL (1.7-2.8) 12/06/21 07:04 Total Bilirubin 0.5 mg/dL (0.2-1.0) 12/07/21 07:30 Direct Bilirubin 0.1 mg/dL (0.1-0.5) 12/07/21 07:30 AST 305 IU/L (10-42) H 12/07/21 07:30 ALT 356 IU/L (10-60) H 12/07/21 07:30 Alkaline Phosphatase 70 IU/L (42-121) 12/07/21 07:30 Ammonia 31.5 umol/L (7-35) 12/07/21 07:30 Total Protein 6.5 g/dL (6.7-8.2) L 12/07/21 07:30 Albumin 3.4 g/dL (3.2-5.5) 12/07/21 07:30 Globulin 3.1 g/dL (2.1-4.2) 12/07/21 07:30 Albumin/Globulin Ratio 1.3 (1.0-2.2) 12/06/21 07:04 Lipase 28 U/L (22-51) 12/06/21 07:04 Whole Bld Vitamin B1 TNP 12/04/21 16:52 TSH 1.25 uIU/mL (0.34-5.60) 12/03/21 18:20 Urine Color YELLOW 12/03/21 18:26 Urine Clarity CLEAR (CLEAR) 12/03/21 18:26 Urine pH 6.5 PH (5.0-7.5) 12/03/21 18:26 Ur Specific [place] 1.020 (1.002-1.030) 12/03/21 18:26 Urine Protein NEGATIVE mg/dL (NEGATIVE) 12/03/21 18:26 Urine Glucose (UA) NEGATIVE mg/dL (NEGATIVE) 12/03/21 18:26 Urine Ketones NEGATIVE mg/dL (NEGATIVE) 12/03/21 18:26 Urine Occult Blood NEGATIVE (NEGATIVE) 12/03/21 18: Urine Nitrite NEGATIVE (NEGATIVE) 12/03/21 18: Urine Bilirubin NEGATIVE (NEGATIVE) 12/03/21 18:26 Urine Urobilinogen 0.2 (NORMAL) E.U./dL (NORMAL) 12/03/21 18:26 Ur Leukocyte Esterase NEGATIVE (NEGATIVE) 12/03/21 18:26 Ur Microscopic Review NOT INDICATED 12/03/21 18:26 Urine Culture Comments NOT INDICATED 12/03/21 18:26 Nasal Adenovirus (PCR) NOT DETECTED 12/03/21 18:10 Nasal B. parapertussis DNA (PCR) NOT DETECTED 12/03/21 18:10 Nasal Coronavir 229E PCR NOT DETECTED 12/03/21 18:10 Nasal Coronavir HKU1 PCR NOT DETECTED 12/03/21 18:10 Nasal Coronavir NL63 PCR NOT DETECTED 12/03/21 18:10 Nasal Coronavir OC43 PCR NOT DETECTED 12/03/21 18:10 Nasal Enterovir/Rhinovir PCR NOT DETECTED 12/03/21 18:10 Nasal Influenza B PCR NOT DETECTED 12/03/21 18:10 Nasal Influenza A PCR NOT DETECTED 12/03/21 18:10 Nasal Parainfluen 1 PCR NOT DETECTED 12/03/21 18:10 Nasal Parainfluen 2 PCR NOT DETECTED 12/03/21 18:10 Nasal Parainfluen 3 PCR NOT DETECTED 12/03/21 18:10 Nasal Parainfluen 4 PCR NOT DETECTED 12/03/21 18:10 Nasal RSV (PCR) NOT DETECTED 12/03/21 18:10 Nasal B.pertussis DNA PCR NOT DETECTED 12/03/21 18:10 Nasal C.pneumoniae (PCR) NOT DETECTED 12/03/21 18:10 Juan Daniel Human Metapneumo PCR NOT DETECTED 12/03/21 18:10 Nasal M.pneumoniae (PCR) NOT DETECTED 12/03/21 18:10 Nasal SARS-CoV-2 (PCR) DETECTED A 12/03/21 18:10 Salicylates < 6.0 mg/dL 12/03/21 18:20 Urine Opiates Screen NEGATIVE (NEGATIVE) 12/03/21 18:26 Ur Oxycodone Screen NEGATIVE (NEGATIVE) 12/03/21 18:26 Urine Methadone Screen NEGATIVE (NEGATIVE) 12/03/21 18:26 Ur Propoxyphene Screen NEGATIVE (NEGATIVE) 12/03/21 18:26 Acetaminophen < 10 ug/mL (10-30) L 12/03/21 18:20 Ur Barbiturates Screen NEGATIVE (NEGATIVE) 12/03/21 18:26 Ur Tricyclics Screen NEGATIVE (NEGATIVE) 12/03/21 18:26 Ur Phencyclidine Scrn NEGATIVE (NEGATIVE) 12/03/21 18:26 Ur Amphetamine Screen NEGATIVE (NEGATIVE) 12/03/21 18:26 U Methamphetamines Scrn NEGATIVE (NEGATIVE) 12/03/21 18:26 U Benzodiazepines Scrn POSITIVE (NEGATIVE) H 12/03/21 18:26 Urine Cocaine Screen NEGATIVE (NEGATIVE) 12/03/21 18:26 U Cannabinoids Screen NEGATIVE (NEGATIVE) 12/03/21 18:26 Ethyl Alcohol < 5.0 mg/dL 12/03/21 18:20 ABX Reporting Has patient been on IV antibiotics over the past 48 hours?: No
[2021-12-08 08:01] LABS: BASOPHILS # (AUTO) 0.1 10^3/uL (0.0-0.1); EOSINOPHILS % (AUTO) 0.3 %; HCT - HEMATOCRIT 43.1 % (42.0-52.0); HGB - HEMOGLOBIN 14.3 g/dL (14.0-18.0); LYMPHOCYTES # (AUTO) 1.2 10^3/uL (1.5-3.5); LYMPHOCYTES % (AUTO) 18.7 %; MEAN CORPUSCULAR HEMOGLOBIN 32.9 pg (27.0-31.0); MEAN CORPUSCULAR HGB CONC 33.2 g/dL (32.0-36.0); MEAN CORPUSCULAR VOLUME 99.3 fL (80.0-94.0); MEAN PLATELET VOLUME 12.2 fL (7.4-11.4); MONOCYTES # (AUTO) 0.6 10^3/uL (0.0-1.0); MONOCYTES % (AUTO) 10.1 %; NEUTROPHILS # (AUTO) 4.4 10^3/uL (1.5-6.6); NEUTROPHILS % (AUTO) 69.7 %; PLT - PLATELET COUNT 199 10^3/uL (130-450); RED BLOOD COUNT 4.34 10^6/uL (4.70-6.10); RED CELL DISTRIBUTION WIDTH 13.8 % (12.0-15.0); WHITE BLOOD COUNT 6.3 x10^3/uL (4.8-10.8)
[2021-12-08] MEDS: HEPARIN 5,000 UNIT/ML VIAL SUBQ SCH ×2 (08:04→21:33)
[2021-12-08] MEDS: THIAMINE 100 MG TABLET PO SCH (08:12)
[2021-12-08] MEDS: MAGNESIUM OXIDE 400 MG TABLET PO SCH (08:12)
[2021-12-08] MEDS: MULTIVITAMIN TABLET PO SCH (08:12)
[2021-12-08 08:19] LABS: ALBUMIN 3.9 g/dL (3.2-5.5); BILIRUBIN,DIRECT 0.2 mg/dL (0.1-0.5); BILIRUBIN,TOTAL 0.9 mg/dL (0.2-1.0); CREATININE 0.6 mg/dL (0.6-1.2); TOTAL PROTEIN 7.1 g/dL (6.7-8.2)
[2021-12-08] MEDS: OLANZapine ODT 5 MG TABLET TL SCH (21:33)
[2021-12-08] MEDS: chlordiazePOXIDE 25 MG CAPSULE PO SCH (21:33)
[2021-12-09] MEDS: SODIUM CHLORIDE FLUSH 0.9% 10 ML SYRINGE IVP SCH ×3 (02:33→19:38)
[2021-12-09] MEDS: LORazepam 2 MG/ML VIAL IVP PRN ×2 (02:35→19:38)
--- NOTE | 2021-12-09 07:44 | PROVIDER PROGRESS NOTE ---
Subjective - Prog Note Date Prog Note Date: 12/09/21 - Subjective Subjective: He has been here for 5 days 61-year-old white male who was sent from the intermediate because of altered mental status. He has chronic alcoholism and was seen in the emergency room November 22. He was brought in by the police requesting evaluation to determine whether he was fit for confinement. He was with acute alcohol intoxication but no other problems and was discharged from the ER and taken to intermediate. He had subsequent multiple ER visits to get evaluated for altered mental status, dehydration and started on treatment for alcohol withdrawal. Was given Librium and Ativan. He had a CT of the head because of unsteady gait and a fall with a closed head injury and CT of the head was negative. After he was released from the correctional facility 12/04/21, he continued to have hallucinations, ataxia, confusion and was brought back to the emergency room. He was in the ER for over 24 hours and medicated with Librium, Ativan, Zyprexa and vitamins as well as thiamine. Encephalopathy did not clear. Repeat CT of head was negative. It was felt that he had Wernicke's encephalopathy and chronic alcoholism with superimposed alcohol withdrawal. During the admission process he was agitated, had fluctuating mentation and required multiple doses of Ativan and Haldol. He was Covid positive. But had no coughing, wheezing, or lung exam findings. He just had a chest x-ray December 01 that was negative. He finally had a repeat follow-up chest x-ray December 06 and that was without acute cardiopulmonary findings. As his stay has gone on, the patient is not able to make decisions. His daughter, who is the nearest living relative, has been updated but she is hesitant to assume power of tax associate attorney role. Telepsych evaluation was done December 07 and psychiatry recommends a guardian since he lacks the capacity to make decisions for himself. His Librium dose has been tapered down. He has received thiamine supplementation for Wernicke's encephalopathy. Current Medications - Current Medications Current Medications: Active Medications Acetaminophen (Acetaminophen 325 Mg Tablet) 650 mg PO Q4HR PRN PRN Reason: Pain 1 to 4 Chlordiazepoxide HCl (Chlordiazepoxide 25 Mg Capsule) 25 mg PO HS [facility] Last Admin: 12/08/21 21:33 Dose: 25 mg Haloperidol (Haloperidol 5 Mg/Ml Vial) 1 mg IVP Q6H PRN PRN Reason: Agitation Last Admin: 12/07/21 20:26 Dose: 1 mg Heparin Sodium (Porcine) (Heparin 5,000 Unit/Ml Vial) 5,000 unit SUBQ BID [facility] Last Admin: 12/08/21 21:33 Dose: 5,000 unit Sodium Chloride (Normal Saline 0.9%) 250 mls @ 20 mls/hr IV Q24H PRN PRN Reason: TKO RATE Last Infusion: 12/05/21 23:05 Dose: Infused Lorazepam (Lorazepam 2 Mg/Ml Vial) 1 mg IVP Q2H PRN PRN Reason: Agitation Last Admin: 12/09/21 02:35 Dose: 1 mg Magnesium Oxide (Magnesium Oxide 400 Mg Tablet) 400 mg PO DAILY [facility] Last Admin: 12/08/21 08:12 Dose: 400 mg Multivitamins (Multivitamin Tablet) 1 tab PO DAILY [facility] Last Admin: 12/08/21 08:12 Dose: 1 tab Olanzapine (Olanzapine Odt 5 Mg Tablet) 5 mg TL HS [facility] Last Admin: 12/08/21 21:33 Dose: 5 mg Ondansetron HCl (Ondansetron 4 Mg/2 Ml Vial) 4 mg IVP Q6HR PRN PRN Reason: Nausea / Vomiting Sodium Chloride (Sodium Chloride Flush 0.9% 10 Ml Syringe) 10 ml IVP PRN PRN PRN Reason: NEEDED PER PROVIDER ORDERS Last Admin: 12/07/21 13:24 Dose: 10 ml Sodium Chloride (Sodium Chloride Flush 0.9% 10 Ml Syringe) 10 ml IVP 0100,0900,1700 [facility] Last Admin: 12/09/21 02:33 Dose: 10 ml Thiamine HCl (Thiamine 100 Mg Tablet) 100 mg PO DAILY [facility] Last Admin: 12/08/21 08:12 Dose: 100 mg Magnesium Oxide [Mag Ox] 400 mg PO DAILY 12/01/21 Multivitamin [Theragran] 1 each PO DAILY 12/01/21 Objective - Vital Signs/Intake & Output Reviewed Vital Signs: Yes Vital Signs: Vital Signs x48h Temp Pulse Resp BP Pulse Ox 12/09/21 00:45 36.8 C 84 16 122/76 95 Intake & Output: Intake & Output 12/06/21 12/07/21 12/08/21 12/09/21 23:59 23:59 23:59 23:59 Intake Total 1635 920 340 340 Output Total 9913 900 Balance 180 20 340 340 - Objective General Appearance: positive: Alert (But can also be sleeping and I have to wake him up. Disheveled.), Other (Sleeping in the morning, but by afternoon awake, and cranky. Not wanting to work with aid to get out of bed. Eating anywhere from 5 bites to 100% of his food but he needs an assist. Factors affect his ability to feed himself include altered mentation, weakness and deconditioning, & hates food) Eyes Bilateral: positive: PERRL, EOMI ENT: positive: No signs of dehydration Neck: positive: No JVD. negative: Stiff neck, Brudzinski's sign Respiratory: positive: No respiratory distress. negative: Rales, Rhonchi Cardiovascular: positive: Regular rate & rhythm. negative: Gallop/S4, Friction rub Abdomen: positive: Non-tender, No organomegaly, Nml bowel sounds, No distention Skin: positive: Warm, Dry Extremities: positive: Full ROM, No pedal edema Neurologic/Psychiatric: positive: CN's nml (2-12), Disoriented to place, Disoriented to time, Slurred/abnml speech (He does not make sense. Words come out but it is garbled and not lucid). negative: Motor nml (Generalized weakness, needs 2 people to help him sit up and walk to the bathroom. Occasional tremors.), Mood/affect nml (Appears to be anxious, and agitated at times) - Lab Results Fish Bones: 12/08/21 07:54 12/08/21 07:54 Other Labs: Lab Results x24hrs 12/08/21 12/08/21 12/08/21 Range/Units 07:54 07:54 07:54 WBC 6.3 (4.8-10.8) x10^3/uL RBC 4.34 L (4.70-6.10) 10^6/uL Hgb 14.3 (14.0-18.0) g/dL Hct 43.1 (42.0-52.0) % MCV 99.3 H (80.0-94.0) fL MCH 32.9 H (27.0-31.0) pg MCHC 33.2 (32.0-36.0) g/dL RDW 13.8 (12.0-15.0) % Plt Count 199 (130-450) 10^3/uL MPV 12.2 H (7.4-11.4) fL Neut # (Auto) 4.4 (1.5-6.6) 10^3/uL Lymph # (Auto) 1.2 L (1.5-3.5) 10^3/uL [place] # (Auto) 0.6 (0.0-1.0) 10^3/uL Eos # (Auto) 0.0 (0.0-0.7) 10^3/uL Baso # (Auto) 0.1 (0.0-0.1) 10^3/uL Absolute Nucleated RBC 0.00 x10^3/uL Nucleated RBC % 0.0 /100WBC Sodium 135 (135-145) mmol/L Potassium 4.0 (3.5-5.0) mmol/L Chloride 99 L (101-111) mmol/L Carbon Dioxide 26 (21-32) mmol/L Anion Gap 10.0 (6-13) BUN 11 (6-20) mg/dL Creatinine 0.6 (0.6-1.2) mg/dL Estimated GFR (MDRD) 137 (>89) Glucose 96 (70-100) mg/dL Calcium 9.0 (8.5-10.3) mg/dL Total Bilirubin 0.9 (0.2-1.0) mg/dL Direct Bilirubin 0.2 (0.1-0.5) mg/dL AST 178 H (10-42) IU/L ALT 291 H (10-60) IU/L Alkaline Phosphatase 78 (42-121) IU/L Ammonia 12.5 (7-35) umol/L Total Protein 7.1 (6.7-8.2) g/dL Albumin 3.9 (3.2-5.5) g/dL Globulin 3.2 (2.1-4.2) g/dL ABX Reporting Has patient been on IV antibiotics over the past 48 hours?: No Assessment/Plan - Problem List (1) Metabolic encephalopathy Impression: Encephalopathy is multifactorial: probable underlying psychosis given his hallucinations today, and due to chronic alcoholism-caused presumed Wernicke's encephalopathy. While he has become more alert and more directed and what he does for himself, this patient has garbled speech, is confused, easily agitated and anxious. His encephalopathy has not completely resolved. This may be his new baseline but only time will tell. (2) Wernicke-Korsakoff syndrome (alcoholic) He had a formal evaluation by telepsych on December 07. He cannot make decisions for himself, needs a guardian, and will need permanent placement. (3) Alcohol abuse He has laboratory abnormalities including mild coagulopathy, anemia, leukopenia, abnormal LFTs likely secondary to chronic alcoholism/liver disease/liver synthetic dysfunction and alcohol induced bone marrow suppression. On admission MCV was 100.2. Hemoglobin 13.6. Today's hemoglobin is 14.3 and MCV is 99. (4) Alcoholic cirrhosis His AST/ALT were rising, he therefore had CT imaging of abd/pelvis and this showed no evidence of pancretitis, any abcsess, or hepatic vbein thrombosis. But an abnormal liver was seen, suggesting cirrhosis is the cause. AST/ALT were 103 and 120 on admission. By December 06 they peaked at 507/431. Today he is 148/233. (5) Fall According to Hx, he had several falls while in intermediate. There was no fracture or brain hemorrhage by [address]. He had assessment by PT regarding ataxia and he is ataxic. (6) Forehead contusion Closed head injury with normal CT scan of head and C-spine. Will offer pain meds if needed. (7) COVID-19 Covid positive with out respiratory or GI symptoms, but WBC is dropping since admission (4.4>>3.6>>3.3 for 2 days and now 6.3 today). Has been here 5 days. (8) Thyroid nodule Thyroid nodule/incidental finding, normal TSH, will consider W/U with a dedicated thyroid ultrasound (9) Homeless single person As per asssessment today; he was living in his car until he went to intermediate, and he does not know where his car is.
[2021-12-09 08:26] LABS: ALBUMIN 3.5 g/dL (3.2-5.5); ALKALINE PHOSPHATASE 69 IU/L (42-121); ALT ALANINE AMINOTRANSFERASE 233 IU/L (10-60); AST ASPARTATE AMINOTRANSFERASE 148 IU/L (10-42); BILIRUBIN,TOTAL 0.5 mg/dL (0.2-1.0); TOTAL PROTEIN 6.8 g/dL (6.7-8.2)
[2021-12-09] MEDS: HEPARIN 5,000 UNIT/ML VIAL SUBQ SCH ×2 (08:56→20:28)
[2021-12-09] MEDS: THIAMINE 100 MG TABLET PO SCH (09:07)
[2021-12-09] MEDS: MULTIVITAMIN TABLET PO SCH (09:07)
[2021-12-09] MEDS: MAGNESIUM OXIDE 400 MG TABLET PO SCH (09:07)
[2021-12-09 09:25] LABS: BILIRUBIN,DIRECT < 0.1 mg/dL (0.1-0.5)
[2021-12-09] MEDS: polyethylene glycoL 3350 17 GM PACKET PO SCH (13:49)
[2021-12-09] MEDS ORDERED: HALOPERIDOL 5 MG/ML VIAL IVP ONE (20:08)
[2021-12-09] MEDS: chlordiazePOXIDE 25 MG CAPSULE PO SCH (20:27)
[2021-12-09] MEDS: OLANZapine ODT 5 MG TABLET TL SCH (20:28)
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
[2021-12-10] MEDS: SODIUM CHLORIDE FLUSH 0.9% 10 ML SYRINGE IVP SCH ×3 (00:30→19:43)
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
[2021-12-10] MEDS: MAGNESIUM OXIDE 400 MG TABLET PO SCH (09:25)
[2021-12-10] MEDS: HEPARIN 5,000 UNIT/ML VIAL SUBQ SCH ×2 (09:25→20:26)
[2021-12-10] MEDS: polyethylene glycoL 3350 17 GM PACKET PO SCH (09:26)
[2021-12-10] MEDS: THIAMINE 100 MG TABLET PO SCH (09:26)
[2021-12-10] MEDS: MULTIVITAMIN TABLET PO SCH (09:26)
[2021-12-10] MEDS ORDERED: HALOPERIDOL 5 MG/ML VIAL IVP ONE (20:00)
[2021-12-10] MEDS: chlordiazePOXIDE 25 MG CAPSULE PO SCH (20:20)
[2021-12-10] MEDS: QUEtiapine 25 MG TABLET PO SCH (20:20)
[2021-12-10] MEDS: OLANZapine ODT 5 MG TABLET TL SCH (20:21)
[2021-12-11] MEDS: SODIUM CHLORIDE FLUSH 0.9% 10 ML SYRINGE IVP SCH ×3 (02:36→18:02)
[2021-12-11] MEDS: HEPARIN 5,000 UNIT/ML VIAL SUBQ SCH ×2 (09:29→21:32)
[2021-12-11] MEDS: polyethylene glycoL 3350 17 GM PACKET PO SCH (09:45)
[2021-12-11] MEDS: THIAMINE 100 MG TABLET PO SCH (09:45)
[2021-12-11] MEDS: MAGNESIUM OXIDE 400 MG TABLET PO SCH (09:45)
[2021-12-11] MEDS: MULTIVITAMIN TABLET PO SCH (09:45)
[2021-12-11] MEDS: LORazepam 2 MG/ML VIAL IVP PRN ×2 (10:58→18:02)
[2021-12-11] MEDS: SODIUM CHLORIDE FLUSH 0.9% 10 ML SYRINGE IVP PRN (10:58)
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
[2021-12-11] MEDS ORDERED: HALOPERIDOL 5 MG/ML VIAL IVP ONE (14:17)
[2021-12-11] MEDS ORDERED: chlordiazePOXIDE 25 MG CAPSULE PO SCH (21:00)
[2021-12-11] MEDS: QUEtiapine 25 MG TABLET PO SCH (21:31)
[2021-12-11] MEDS: OLANZapine ODT 5 MG TABLET TL SCH (21:31)
[2021-12-11] MEDS: HALOPERIDOL 5 MG/ML VIAL IVP SCH (21:32)
[2021-12-12] MEDS: SODIUM CHLORIDE FLUSH 0.9% 10 ML SYRINGE IVP SCH ×3 (00:33→18:07)
[2021-12-12] MEDS: LORazepam 2 MG/ML VIAL IVP PRN ×2 (00:38→06:22)
[2021-12-12] MEDS: NICOTINE 14 MG PATCH TOP SCH ×2 (01:20→08:33)
[2021-12-12] MEDS: HALOPERIDOL 5 MG/ML VIAL IVP PRN ×3 (02:58→19:12)
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
[2021-12-12 08:27] LABS: BASOPHILS # (AUTO) 0.1 10^3/uL (0.0-0.1); BASOPHILS % (AUTO) 1.5 %; EOSINOPHILS # (AUTO) 0.1 10^3/uL (0.0-0.7); EOSINOPHILS % (AUTO) 1.5 %; HCT - HEMATOCRIT 40.3 % (42.0-52.0); HGB - HEMOGLOBIN 13.2 g/dL (14.0-18.0); LYMPHOCYTES # (AUTO) 1.4 10^3/uL (1.5-3.5); LYMPHOCYTES % (AUTO) 42.4 %; MEAN CORPUSCULAR HEMOGLOBIN 31.7 pg (27.0-31.0); MEAN CORPUSCULAR HGB CONC 32.8 g/dL (32.0-36.0); MEAN CORPUSCULAR VOLUME 96.6 fL (80.0-94.0); MEAN PLATELET VOLUME 12.8 fL (7.4-11.4); MONOCYTES # (AUTO) 0.4 10^3/uL (0.0-1.0); MONOCYTES % (AUTO) 11.3 %; NEUTROPHILS # (AUTO) 1.5 10^3/uL (1.5-6.6); PLT - PLATELET COUNT 146 10^3/uL (130-450); RED BLOOD COUNT 4.17 10^6/uL (4.70-6.10); RED CELL DISTRIBUTION WIDTH 13.7 % (12.0-15.0); WHITE BLOOD COUNT 3.4 x10^3/uL (4.8-10.8)
[2021-12-12 08:30] LABS: ALBUMIN 3.7 g/dL (3.2-5.5); ALBUMIN/GLOBULIN RATIO 1.1 (1.0-2.2); BILIRUBIN,TOTAL 0.5 mg/dL (0.2-1.0); CALCIUM 8.7 mg/dL (8.5-10.3); CREATININE 0.7 mg/dL (0.6-1.2); POTASSIUM 3.8 mmol/L (3.5-5.0); TOTAL PROTEIN 7.1 g/dL (6.7-8.2)
[2021-12-12] MEDS: ACETAMINOPHEN 325 MG TABLET PO PRN (08:32)
[2021-12-12] MEDS: MAGNESIUM OXIDE 400 MG TABLET PO SCH (08:32)
[2021-12-12] MEDS: THIAMINE 100 MG TABLET PO SCH (08:32)
[2021-12-12] MEDS: polyethylene glycoL 3350 17 GM PACKET PO SCH (08:35)
[2021-12-12] MEDS: MULTIVITAMIN TABLET PO SCH (08:36)
[2021-12-12] MEDS: HEPARIN 5,000 UNIT/ML VIAL SUBQ SCH ×2 (08:37→20:59)
[2021-12-12] MEDS: chlordiazePOXIDE 5 MG CAPSULE PO SCH (20:57)
[2021-12-12] MEDS: QUEtiapine 25 MG TABLET PO SCH (20:57)
[2021-12-12] MEDS: OLANZapine ODT 5 MG TABLET TL SCH (20:58)
[2021-12-12] MEDS: HALOPERIDOL 5 MG/ML VIAL IVP SCH (20:58)
[2021-12-12] MEDS ORDERED: chlordiazePOXIDE 5 MG CAPSULE PO ONE (21:03)
[2021-12-13] MEDS: SODIUM CHLORIDE FLUSH 0.9% 10 ML SYRINGE IVP SCH ×3 (01:35→15:59)
[2021-12-13] MEDS: HALOPERIDOL 5 MG/ML VIAL IVP PRN ×2 (03:20→15:59)
[2021-12-13] MEDS: LORazepam 2 MG/ML VIAL IVP PRN ×2 (04:42→19:50)
[2021-12-13] MEDS: HEPARIN 5,000 UNIT/ML VIAL SUBQ SCH ×2 (08:52→20:38)
[2021-12-13] MEDS: NICOTINE 14 MG PATCH TOP SCH (08:56)
[2021-12-13] MEDS: MAGNESIUM OXIDE 400 MG TABLET PO SCH (08:56)
[2021-12-13] MEDS: MULTIVITAMIN TABLET PO SCH (08:56)
[2021-12-13] MEDS: polyethylene glycoL 3350 17 GM PACKET PO SCH (08:56)
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
[2021-12-13] MEDS: HALOPERIDOL 5 MG/ML VIAL IVP SCH (20:37)
[2021-12-13] MEDS: OLANZapine ODT 5 MG TABLET TL SCH (20:37)
[2021-12-13] MEDS: QUEtiapine 25 MG TABLET PO SCH (20:37)
[2021-12-13] MEDS: chlordiazePOXIDE 5 MG CAPSULE PO SCH (20:37)
[2021-12-14] MEDS: SODIUM CHLORIDE FLUSH 0.9% 10 ML SYRINGE IVP SCH ×3 (00:16→16:33)
[2021-12-14] MEDS: LORazepam 2 MG/ML VIAL IVP PRN ×3 (04:07→22:05)
[2021-12-14] MEDS: HALOPERIDOL 5 MG/ML VIAL IVP PRN ×2 (04:07→16:33)
[2021-12-14] MEDS: polyethylene glycoL 3350 17 GM PACKET PO SCH ×2 (09:00→09:26)
[2021-12-14] MEDS: MAGNESIUM OXIDE 400 MG TABLET PO SCH (09:26)
[2021-12-14] MEDS: HEPARIN 5,000 UNIT/ML VIAL SUBQ SCH ×2 (09:26→20:36)
[2021-12-14] MEDS: MULTIVITAMIN TABLET PO SCH (09:26)
[2021-12-14] MEDS: THIAMINE 100 MG TABLET PO SCH (09:26)
[2021-12-14] MEDS: NICOTINE 14 MG PATCH TOP SCH (09:26)
--- NOTE | 2021-12-14 14:25 | PROVIDER PROGRESS NOTE ---
Progress Note 12/14/2021 2:20 PM This is the second day in a row, since being out of isolation, that he has been pacing the hallways. He is always accompanied by one of the aides and he does laps from pod to to pod 3 and then back down again. A couple of times it is a tense situation and that he gets stubborn and does not want to do what is asked of him. But then he can be easily prompted. He is Librium 10 mg at night. Haldol 1 mg every 6 hours as needed. Last dose was at 4 this morning. Haldol 2 mg at night. Ativan 1 mg every 4 hours as needed. Last dose was at 930 this morning. Seroquel 50 mg in the evening. He is also on Zyprexa 5 mg sublingual every evening. Active Medications Acetaminophen (Acetaminophen 325 Mg Tablet) 650 mg PO Q4HR PRN PRN Reason: Pain 1 to 4 Last Admin: 12/12/21 08:32 Dose: 650 mg Chlordiazepoxide HCl (Chlordiazepoxide 5 Mg Capsule) 10 mg PO HS [facility] Last Admin: 12/13/21 20:37 Dose: 10 mg Haloperidol (Haloperidol 5 Mg/Ml Vial) 1 mg IVP Q6H PRN PRN Reason: Agitation Last Admin: 12/14/21 04:07 Dose: 1 mg Haloperidol (Haloperidol 5 Mg/Ml Vial) 2 mg IVP QPM [facility] Last Admin: 12/13/21 20:37 Dose: 2 mg Heparin Sodium (Porcine) (Heparin 5,000 Unit/Ml Vial) 5,000 unit SUBQ BID [facility] Last Admin: 12/14/21 09:26 Dose: 5,000 unit Sodium Chloride (Normal Saline 0.9%) 250 mls @ 20 mls/hr IV Q24H PRN PRN Reason: TKO RATE Last Infusion: 12/05/21 23:05 Dose: Infused Lorazepam (Lorazepam 2 Mg/Ml Vial) 1 mg IVP Q4H PRN PRN Reason: Agitation Last Admin: 12/14/21 09:27 Dose: 1 mg Magnesium Oxide (Magnesium Oxide 400 Mg Tablet) 400 mg PO DAILY [facility] Last Admin: 12/14/21 09:26 Dose: 400 mg Multivitamins (Multivitamin Tablet) 1 tab PO DAILY [facility] Last Admin: 12/14/21 09:26 Dose: 1 tab Nicotine (Nicotine 14 Mg Patch) 1 patch TOP DAILY [facility] Last Admin: 12/14/21 09:26 Dose: 1 patch Olanzapine (Olanzapine Odt 5 Mg Tablet) 5 mg TL HS [facility] Last Admin: 12/13/21 20:37 Dose: 5 mg Ondansetron HCl (Ondansetron 4 Mg/2 Ml Vial) 4 mg IVP Q6HR PRN PRN Reason: Nausea / Vomiting Polyethylene Glycol (Polyethylene Glycol 3350 17 Gm Packet) 17 gm PO DAILY [facility] Last Admin: 12/14/21 09:26 Dose: 17 gm Quetiapine Fumarate (Quetiapine 25 Mg Tablet) 50 mg PO QPM [facility] Last Admin: 12/13/21 20:37 Dose: 50 mg Sodium Chloride (Sodium Chloride Flush 0.9% 10 Ml Syringe) 10 ml IVP PRN PRN PRN Reason: NEEDED PER PROVIDER ORDERS Last Admin: 12/11/21 10:58 Dose: 10 ml Sodium Chloride (Sodium Chloride Flush 0.9% 10 Ml Syringe) 10 ml IVP 0100,0900, 1700 [facility] Last Admin: 12/14/21 09:26 Dose: 10 ml Thiamine HCl (Thiamine 100 Mg Tablet) 100 mg PO DAILY [facility] Last Admin: 12/14/21 09:26 Dose: 100 mg Temperature is 36.6. Supine blood pressure 131/84. Sitting blood pressure 133/96. Standing blood pressure 140/89. Respirations 20, 97% on room air, heart rate 79. 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 He is disheveled. Unshaven. Slack facies. He did ask to talk but nothing he says really make sense. Neck is supple Lungs are clear to auscultation and percussion Regular rate and rhythm Abdomen is soft, nontender Extremities are thin without edema Alert, not oriented to person place and time. Cranial nerves are intact. No focal motor deficits in upper and lower extremity strength testing is normal. He has gait ataxia but refuses to use a cane or walker. Currently he can sometimes do forward motion propelling in the hallway and then he catches himself. Gait is narrow, and sometimes crosses his feet in front of himself. Last laboratory work was December 12 and stable with LFTs gradually coming down. CBC has recurrent neutropenia, hemoglobin stable platelets stable. Assessment/plan 1. 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 This is in a homeless patient. This is left him with word salad, disorientation, gait ataxia. He presented to us after 2 weeks of being in skilled nursing with multiple visits to our emergency room. He was delirious, hallucinating when we admitted him and he was treated as possible alcohol withdrawal and given thiamine. But he was already 2 weeks past when he was jailed. Continue thiamine, folic acid. He has been deemed unable to take care of himself via telepsych and we are seeking emergency guardianship. Daughter will assume custody and then we will seek home and community services funding to then transition him to permanent placement. 2. History of alcohol abuse and alcoholic cirrhosis. Liver enzymes have been unable to be checked because he keeps on refusing blood draws. 3. Fall and orthostatic hypotension history. He fell several times while in skilled nursing, and CT of the head was negative twice. He had orthostatic changes on December 11, but today's blood pressure checks are stable.
[2021-12-14] MEDS: HALOPERIDOL 5 MG/ML VIAL IVP SCH (20:27)
[2021-12-14] MEDS: QUEtiapine 25 MG TABLET PO SCH (20:27)
[2021-12-14] MEDS: chlordiazePOXIDE 5 MG CAPSULE PO SCH (20:27)
[2021-12-14] MEDS: OLANZapine ODT 5 MG TABLET TL SCH ×2 (20:27→22:04)
[2021-12-15] MEDS: SODIUM CHLORIDE FLUSH 0.9% 10 ML SYRINGE IVP SCH ×3 (01:00→16:59)
[2021-12-15] MEDS: MULTIVITAMIN TABLET PO SCH (11:32)
[2021-12-15] MEDS: MAGNESIUM OXIDE 400 MG TABLET PO SCH (11:32)
[2021-12-15] MEDS: THIAMINE 100 MG TABLET PO SCH (11:32)
[2021-12-15] MEDS: polyethylene glycoL 3350 17 GM PACKET PO SCH (11:33)
[2021-12-15] MEDS: HEPARIN 5,000 UNIT/ML VIAL SUBQ SCH ×2 (11:33→20:27)
[2021-12-15] MEDS: NICOTINE 14 MG PATCH TOP SCH (11:34)
--- NOTE | 2021-12-15 15:08 | PROVIDER PROGRESS NOTE ---
Progress Note 12/15/2021 15:01 no change. walking hallways. eating. still disoriented. word salad. needs constant supervision. cooperative with current meds. Active Medications Acetaminophen (Acetaminophen 325 Mg Tablet) 650 mg PO Q4HR PRN PRN Reason: Pain 1 to 4 Last Admin: 12/12/21 08:32 Dose: 650 mg Chlordiazepoxide HCl (Chlordiazepoxide 5 Mg Capsule) 10 mg PO HS [facility] Last Admin: 12/14/21 20:27 Dose: 10 mg Haloperidol (Haloperidol 5 Mg/Ml Vial) 1 mg IVP Q6H PRN PRN Reason: Agitation Last Admin: 12/14/21 16:33 Dose: 1 mg Haloperidol (Haloperidol 5 Mg/Ml Vial) 2 mg IVP QPM [facility] Last Admin: 12/14/21 20:27 Dose: 2 mg Heparin Sodium (Porcine) (Heparin 5,000 Unit/Ml Vial) 5,000 unit SUBQ BID [facility] Last Admin: 12/15/21 11:33 Dose: Not Given Sodium Chloride (Normal Saline 0.9%) 250 mls @ 20 mls/hr IV Q24H PRN PRN Reason: TKO RATE Last Infusion: 12/05/21 23:05 Dose: Infused Lorazepam (Lorazepam 2 Mg/Ml Vial) 1 mg IVP Q4H PRN PRN Reason: Agitation Last Admin: 12/14/21 22:05 Dose: 1 mg Magnesium Oxide (Magnesium Oxide 400 Mg Tablet) 400 mg PO DAILY [facility] Last Admin: 12/15/21 11:32 Dose: 400 mg Multivitamins (Multivitamin Tablet) 1 tab PO DAILY [facility] Last Admin: 12/15/21 11:32 Dose: 1 tab Nicotine (Nicotine 14 Mg Patch) 1 patch TOP DAILY [facility] Last Admin: 12/15/21 11:34 Dose: 1 patch Olanzapine (Olanzapine Odt 5 Mg Tablet) 5 mg TL HS [facility] Last Admin: 12/14/21 22:04 Dose: Not Given Ondansetron HCl (Ondansetron 4 Mg/2 Ml Vial) 4 mg IVP Q6HR PRN PRN Reason: Nausea / Vomiting Polyethylene Glycol (Polyethylene Glycol 3350 17 Gm Packet) 17 gm PO DAILY [facility] Last Admin: 12/15/21 11:33 Dose: Not Given Quetiapine Fumarate (Quetiapine 25 Mg Tablet) 50 mg PO QPM [facility] Last Admin: 12/14/21 20:27 Dose: 50 mg Sodium Chloride (Sodium Chloride Flush 0.9% 10 Ml Syringe) 10 ml IVP PRN PRN PRN Reason: NEEDED PER PROVIDER ORDERS Last Admin: 12/11/21 10:58 Dose: 10 ml Sodium Chloride (Sodium Chloride Flush 0.9% 10 Ml Syringe) 10 ml IVP 0100,0900,1700 [facility] Last Admin: 12/15/21 11:33 Dose: 10 ml Thiamine HCl (Thiamine 100 Mg Tablet) 100 mg PO DAILY [facility] Last Admin: 12/15/21 11:32 Dose: 100 mg Temperature 36.4. Supine blood pressure 123/96. Sitting blood pressure 133/96. Standing blood pressure 128/82. 97% on room air. Respirations 20. He is alert, disoriented, thin male, disheveled and unshaven. But cooperative for the most part. Does sundown at night. Neck is supple. Lungs are clear to auscultation Regular rate and rhythm Abdomen soft, nontender. Incontinent, wearing a pad. Last bowel movement yesterday. Neurologically disoriented, intermittently drowsy, can get anxious in a aggressive. Ataxic gait walking down the hallway but does not need a walker. Last labs were December 12 and stable. Assessment/plan without change from yesterday. Nonbillable rounding. 1. 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 This is in a homeless in t[place]. This is left him with word salad, disorientation, gait ataxia. He presented to us after 2 weeks of being in nursing home with multiple visits to our emergency room. He was delirious, hallucinating when we admitted him and he was treated as possible alcohol withdrawal and given thiamine. But he was already 2 weeks past when he was jailed. Continue thiamine, folic acid. He has been deemed unable to take care of himself via telepsych and we are seeking emergency guardianship. Daughter will assume custody and then we will seek home and community services funding to then transition him to permanent placement. 2. History of alcohol abuse and alcoholic cirrhosis. Liver enzymes have been unable to be checked because he keeps on refusing blood draws. 3. Fall and orthostatic hypotension history. He fell several times while in nursing home, and CT of the head was negative twice. He had orthostatic changes on December 11, but today's blood pressure checks are stable.
[2021-12-15] MEDS: chlordiazePOXIDE 5 MG CAPSULE PO SCH (20:19)
[2021-12-15] MEDS: OLANZapine ODT 5 MG TABLET TL SCH (20:20)
[2021-12-15] MEDS: HALOPERIDOL 5 MG/ML VIAL IVP SCH (20:20)
[2021-12-15] MEDS: QUEtiapine 25 MG TABLET PO SCH (20:20)
[2021-12-16] MEDS: SODIUM CHLORIDE FLUSH 0.9% 10 ML SYRINGE IVP SCH ×3 (00:31→16:26)
[2021-12-16] MEDS: MAGNESIUM OXIDE 400 MG TABLET PO SCH (08:31)
[2021-12-16] MEDS: THIAMINE 100 MG TABLET PO SCH (08:31)
[2021-12-16] MEDS: NICOTINE 14 MG PATCH TOP SCH (08:31)
[2021-12-16] MEDS: MULTIVITAMIN TABLET PO SCH (08:31)
[2021-12-16] MEDS: polyethylene glycoL 3350 17 GM PACKET PO SCH ×2 (08:32→08:34)
[2021-12-16] MEDS: HEPARIN 5,000 UNIT/ML VIAL SUBQ SCH ×2 (08:37→20:33)
--- NOTE | 2021-12-16 11:50 | PROVIDER PROGRESS NOTE ---
Assessment/Plan - Problem List (1) Metabolic encephalopathy Assessment/Plan: 12/16/21 as his baseline, and stable. pt walk [place] without acute distress. discussed the care plan with pt's daughter on today morning, she called me. pt had tele psychiatrics consult. continue Ativan PRN, Zyprexia, haldol, seroquel. continue consult with social problems specialist, pt need emergence guardian ship, plan to permanent placement for pt, pt is pending [facility] assessment as well. (2) Wernicke-Korsakoff syndrome (alcoholic) 12/16 stable. pt has chronic alcohol abuse hx. He had a formal evaluation by telepsych on December 07. He cannot make decisions for himself, needs a guardian, and will need permanent placement. Daughter is working with social work right now. continue vitamin B1 and (3) Alcohol abuse 12/16, pt has hx of alcohol abuse, stable now at hospital without acute withdrawal after he was treated at hospital. continue vitamin B1 and (4) Alcoholic cirrhosis 12/16 His AST/ALT were still elevated, an abnormal liver was seen, suggesting cirrhosis is the cause. it is likely caused by pt's chronic alcoholic abuse. (5) Fall 12/16 great improved. pt's orthostatic hypotension is resolve. pt walk at nurse station and hallway without distress or difficult. (6) Forehead contusion Closed head injury with normal CT scan of head and C-spine. Will offer pain meds if needed. (7) COVID-19 stable. pt has stable O2 sat without O2 supplement and pt has no acute respiratory distress now. (8) Thyroid nodule Thyroid nodule/incidental finding, normal TSH, will consider W/U with a dedicated thyroid ultrasound (9) Homeless single person consult with social problems specialist, likely plan to replace with permanent nurse home for pt. As per asssessment, he was living in his car until he went to [facility], and he does not know where his car is. His daughter met with home and community services on December 11. By default she is power of fish butcher as his nurse living relative. She is working closely with social work to figure out what to do. He has a court appearance that will be done by video conference 12/15. - Current Meds Current Meds: Current Medications Generic Name Dose Route Start Last Admin Trade Name Freq PRN Reason Stop Dose Admin Acetaminophen 650 mg 12/04/21 21:17 12/12/21 08:32 Acetaminophen 325 Mg Tablet PO 650 mg Q4HR PRN Administration Pain 1 to 4 Chlordiazepoxide HCl 10 mg 12/12/21 21:00 12/15/21 20:19 Chlordiazepoxide 5 Mg Capsule PO 10 mg HS [facility] Administration Haloperidol 1 mg 12/07/21 15:48 12/14/21 16:33 Haloperidol 5 Mg/Ml Vial IVP 1 mg Q6H PRN Administration Agitation Haloperidol 2 mg 12/11/21 21:00 12/15/21 20:20 Haloperidol 5 Mg/Ml Vial IVP 2 mg QPM [facility] Administration Heparin Sodium (Porcine) 5,000 unit 12/05/21 09:00 12/16/21 08:37 Heparin 5,000 Unit/Ml Vial SUBQ 5,000 unit BID [facility] Administration Sodium Chloride 250 mls @ 20 mls/hr 12/05/21 14:51 12/05/21 23:05 Normal Saline 0.9% IV Infused Q24H PRN Infusion TKO RATE Lorazepam 1 mg 12/11/21 12:04 12/14/21 22:05 Lorazepam 2 Mg/Ml Vial IVP 1 mg Q4H PRN Administration Agitation Magnesium Oxide 400 mg 12/05/21 09:00 12/16/21 08:31 Magnesium Oxide 400 Mg Tablet PO 400 mg DAILY [facility] Administration Multivitamins 1 tab 12/05/21 09:00 12/16/21 08:31 Multivitamin Tablet PO 1 tab DAILY [facility] Administration Nicotine 1 patch 12/12/21 01:01 12/16/21 08:31 Nicotine 14 Mg Patch TOP 1 patch DAILY [facility] Administration Olanzapine 5 mg 12/07/21 21:00 12/15/21 20:20 Olanzapine Odt 5 Mg Tablet TL 5 mg HS [facility] Administration Polyethylene Glycol 17 gm 12/09/21 14:00 12/16/21 08:34 Polyethylene Glycol 3350 17 Gm Packet PO 17 gm DAILY [facility] Administration Quetiapine Fumarate 50 mg 12/10/21 21:00 12/15/21 20:20 Quetiapine 25 Mg Tablet PO 50 mg QPM [facility] Administration Sodium Chloride 10 ml 12/04/21 21:17 12/11/21 10:58 Sodium Chloride Flush 0.9% 10 Ml Syringe IVP 10 ml PRN PRN Administration NEEDED PER PROVIDER ORDERS Sodium Chloride 10 ml 12/05/21 01:00 12/16/21 08:32 Sodium Chloride Flush 0.9% 10 Ml Syringe IVP 10 ml 0100,0900,1700 [facility] Administration Thiamine HCl 100 mg 12/04/21 09:00 12/16/21 08:31 Thiamine 100 Mg Tablet PO 100 mg DAILY [facility] Administration - Lab Result Fish Bone Diagrams: 12/12/21 08:07 12/12/21 08:07 Subjective - Subjective Patient Reports: Resting Comfortably Objective Vital Signs: Vital Signs - 24 hr 12/15/21 12/16/21 12/16/21 15:24 00:00 08:00 Temperature 36.7 C 36.4 C L 37.0 C Heart Rate [ 79 83 99 Brachial] Respiratory 20 20 18 Rate Blood Pressure 114/83 H 126/87 H 119/79 [Right Brachial artery] O2 Saturation 100 100 94 Oxygen O2 Source Room air I&O (Last 24 Hrs): Intake and Output Totals x24h 12/14/21 12/15/21 12/16/21 23:59 23:59 23:59 Intake Total 3020 2110 120 Output Total 352 375 Balance 2668 1735 120 General: Alert, Cooperative, No acute distress HEENT: Atraumatic Neck: Supple Lymphatic: no adenopathy Neuro: Alert, Non Focal Cardiovascular: Regular rate, Normal S1, Normal S2 Respiratory: Chest non-tender, No respiratory distress Abdomen: Normal bowel sounds, Soft, No tenderness Extremities: Normal pulses - Results Results: Laboratory Results WBC 3.4 x10^3/uL (4.8-10.8) L 12/12/21 08:07 RBC 4.17 10^6/uL (4.70-6.10) L 12/12/21 08:07 Hgb 13.2 g/dL (14.0-18.0) L 12/12/21 08:07 Hct 40.3 % (42.0-52.0) L 12/12/21 08:07 MCV 96.6 fL (80.0-94.0) H 12/12/21 08:07 MCH 31.7 pg (27.0-31.0) H 12/12/21 08:07 MCHC 32.8 g/dL (32.0-36.0) 12/12/21 08:07 RDW 13.7 % (12.0-15.0) 12/12/21 08:07 Plt Count 146 10^3/uL (130-450) 12/12/21 08:07 MPV 12.8 fL (7.4-11.4) H 12/12/21 08:07 Neut # (Auto) 1.5 10^3/uL (1.5-6.6) 12/12/21 08:07 Lymph # (Auto) 1.4 10^3/uL (1.5-3.5) L 12/12/21 08:07 [place] # (Auto) 0.4 10^3/uL (0.0-1.0) 12/12/21 08:07 Eos # (Auto) 0.1 10^3/uL (0.0-0.7) 12/12/21 08:07 Baso # (Auto) 0.1 10^3/uL (0.0-0.1) 12/12/21 08:07 Absolute Nucleated RBC 0.00 x10^3/uL 12/12/21 08:07 Nucleated RBC % 0.0 /100WBC 12/12/21 08:07 PT 15.1 secs (9.9-12.6) H 12/04/21 23:33 INR 1.4 (0.8-1.2) H 12/04/21 23:33 APTT 24.8 secs (24.9-33.3) L 12/03/21 18:20 Sodium 135 mmol/L (135-145) 12/12/21 08:07 Potassium 3.8 mmol/L (3.5-5.0) 12/12/21 08:07 Chloride 101 mmol/L (101-111) 12/12/21 08:07 Carbon Dioxide 24 mmol/L (21-32) 12/12/21 08:07 Anion Gap 10.0 (6-13) 12/12/21 08:07 BUN 19 mg/dL (6-20) 12/12/21 08:07 Creatinine 0.7 mg/dL (0.6-1.2) 12/12/21 08:07 Estimated GFR (MDRD) 114 (>89) 12/12/21 08:07 Glucose 121 mg/dL (70-100) H 12/12/21 08:07 Calcium 8.7 mg/dL (8.5-10.3) 12/12/21 08:07 Phosphorus 3.6 mg/dL (2.5-4.6) 12/06/21 07:04 Magnesium 2.0 mg/dL (1.7-2.8) 12/06/21 07:04 Total Bilirubin 0.5 mg/dL (0.2-1.0) 12/12/21 08:07 Direct Bilirubin < 0.1 mg/dL (0.1-0.5) L 12/09/21 07:55 AST 149 IU/L (10-42) H 12/12/21 08:07 ALT 254 IU/L (10-60) H 12/12/21 08:07 Alkaline Phosphatase 80 IU/L (42-121) 12/12/21 08:07 Ammonia 12.5 umol/L (7-35) 12/08/21 07:54 Total Protein 7.1 g/dL (6.7-8.2) 12/12/21 08:07 Albumin 3.7 g/dL (3.2-5.5) 12/12/21 08:07 Globulin 3.4 g/dL (2.1-4.2) 12/12/21 08:07 Albumin/Globulin Ratio 1.1 (1.0-2.2) 12/12/21 08:07 Lipase 28 U/L (22-51) 12/06/21 07:04 Whole Bld Vitamin B1 TNP 12/04/21 16:52 TSH 1.25 uIU/mL (0.34-5.60) 12/03/21 18:20 Urine Color YELLOW 12/03/21 18:26 Urine Clarity CLEAR (CLEAR) 12/03/21 18:26 Urine pH 6.5 PH (5.0-7.5) 12/03/21 18:26 Ur Specific [place] 1.020 (1.002-1.030) 12/03/21 18:26 Urine Protein NEGATIVE mg/dL (NEGATIVE) 12/03/21 18:26 Urine Glucose (UA) NEGATIVE mg/dL (NEGATIVE) 12/03/21 18:26 Urine Ketones NEGATIVE mg/dL (NEGATIVE) 12/03/21 18:26 Urine Occult Blood NEGATIVE (NEGATIVE) 12/03/21 18:26 Urine Nitrite NEGATIVE (NEGATIVE) 12/03/21 18:26 Urine Bilirubin NEGATIVE (NEGATIVE) 12/03/21 18:26 Urine Urobilinogen 0.2 (NORMAL) E.U./dL (NORMAL) 12/03/21 18:26 Ur Leukocyte Esterase NEGATIVE (NEGATIVE) 12/03/21 18:26 Ur Microscopic Review NOT INDICATED 12/03/21 18:26 Urine Culture Comments NOT INDICATED 12/03/21 18:26 Nasal Adenovirus (PCR) NOT DETECTED 12/03/21 18:10 Nasal B. parapertussis DNA (PCR) NOT DETECTED 12/03/21 18:10 Nasal Coronavir 229E PCR NOT DETECTED 12/03/21 18:10 Nasal Coronavir HKU1 PCR NOT DETECTED 12/03/21 18:10 Nasal Coronavir NL63 PCR NOT DETECTED 12/03/21 18:10 Nasal Coronavir OC43 PCR NOT DETECTED 12/03/21 18:10 Nasal Enterovir/Rhinovir PCR NOT DETECTED 12/03/21 18:10 Nasal Influenza B PCR NOT DETECTED 12/03/21 18:10 Nasal Influenza A PCR NOT DETECTED 12/03/21 18:10 Nasal Parainfluen 1 PCR NOT DETECTED 12/03/21 18:10 Nasal Parainfluen 2 PCR NOT DETECTED 12/03/21 18:10 Nasal Parainfluen 3 PCR NOT DETECTED 12/03/21 18:10 Nasal Parainfluen 4 PCR NOT DETECTED 12/03/21 18:10 Nasal RSV (PCR) NOT DETECTED 12/03/21 18:10 Nasal B.pertussis DNA PCR NOT DETECTED 12/03/21 18:10 Nasal C.pneumoniae (PCR) NOT DETECTED 12/03/21 18:10 Juan Daniel Human Metapneumo PCR NOT DETECTED 12/03/21 18:10 Nasal M.pneumoniae (PCR) NOT DETECTED 12/03/21 18:10 Nasal SARS-CoV-2 (PCR) DETECTED A 12/03/21 18:10 Salicylates < 6.0 mg/dL 12/03/21 18:20 Urine Opiates Screen NEGATIVE (NEGATIVE) 12/03/21 18:26 Ur Oxycodone Screen NEGATIVE (NEGATIVE) 12/03/21 18:26 Urine Methadone Screen NEGATIVE (NEGATIVE) 12/03/21 18:26 Ur Propoxyphene Screen NEGATIVE (NEGATIVE) 12/03/21 18:26 Acetaminophen < 10 ug/mL (10-30) L 12/03/21 18:20 Ur Barbiturates Screen NEGATIVE (NEGATIVE) 12/03/21 18:26 Ur Tricyclics Screen NEGATIVE (NEGATIVE) 12/03/21 18:26 Ur Phencyclidine Scrn NEGATIVE (NEGATIVE) 12/03/21 18:26 Ur Amphetamine Screen NEGATIVE (NEGATIVE) 12/03/21 18:26 U Methamphetamines Scrn NEGATIVE (NEGATIVE) 12/03/21 18:26 U Benzodiazepines Scrn POSITIVE (NEGATIVE) H 12/03/21 18:26 Urine Cocaine Screen NEGATIVE (NEGATIVE) 12/03/21 18:26 U Cannabinoids Screen NEGATIVE (NEGATIVE) 12/03/21 18:26 Ethyl Alcohol < 5.0 mg/dL 12/03/21 18:20 Sepsis Event Note (H) - Evaluation Current Stage of Sepsis: Ruled out ABX Reporting Has patient been on IV antibiotics over the past 48 hours?: No Current Medications - Current Medications Current Medications: Active Medications Acetaminophen (Acetaminophen 325 Mg Tablet) 650 mg PO Q4HR PRN PRN Reason: Pain 1 to 4 Last Admin: 12/12/21 08:32 Dose: 650 mg Chlordiazepoxide HCl (Chlordiazepoxide 5 Mg Capsule) 10 mg PO HS [facility] Last Admin: 12/15/21 20:19 Dose: 10 mg Haloperidol (Haloperidol 5 Mg/Ml Vial) 1 mg IVP Q6H PRN PRN Reason: Agitation Last Admin: 12/14/21 16:33 Dose: 1 mg Haloperidol (Haloperidol 5 Mg/Ml Vial) 2 mg IVP QPM [facility] Last Admin: 12/15/21 20:20 Dose: 2 mg Heparin Sodium (Porcine) (Heparin 5,000 Unit/Ml Vial) 5,000 unit SUBQ BID [facility] Last Admin: 12/16/21 08:37 Dose: 5,000 unit Sodium Chloride (Normal Saline 0.9%) 250 mls @ 20 mls/hr IV Q24H PRN PRN Reason: TKO RATE Last Infusion: 12/05/21 23:05 Dose: Infused Lorazepam (Lorazepam 2 Mg/Ml Vial) 1 mg IVP Q4H PRN PRN Reason: Agitation Last Admin: 12/14/21 22:05 Dose: 1 mg Magnesium Oxide (Magnesium Oxide 400 Mg Tablet) 400 mg PO DAILY [facility] Last Admin: 12/16/21 08:31 Dose: 400 mg Multivitamins (Multivitamin Tablet) 1 tab PO DAILY [facility] Last Admin: 12/16/21 08:31 Dose: 1 tab Nicotine (Nicotine 14 Mg Patch) 1 patch TOP DAILY [facility] Last Admin: 12/16/21 08:31 Dose: 1 patch Olanzapine (Olanzapine Odt 5 Mg Tablet) 5 mg TL HS [facility] Last Admin: 12/15/21 20:20 Dose: 5 mg Ondansetron HCl (Ondansetron 4 Mg/2 Ml Vial) 4 mg IVP Q6HR PRN PRN Reason: Nausea / Vomiting Polyethylene Glycol (Polyethylene Glycol 3350 17 Gm Packet) 17 gm PO DAILY [facility] Last Admin: 12/16/21 08:34 Dose: 17 gm Quetiapine Fumarate (Quetiapine 25 Mg Tablet) 50 mg PO QPM [facility] Last Admin: 12/15/21 20:20 Dose: 50 mg Sodium Chloride (Sodium Chloride Flush 0.9% 10 Ml Syringe) 10 ml IVP PRN PRN PRN Reason: NEEDED PER PROVIDER ORDERS Last Admin: 12/11/21 10:58 Dose: 10 ml Sodium Chloride (Sodium Chloride Flush 0.9% 10 Ml Syringe) 10 ml IVP 0100,0900,1700 [facility] Last Admin: 12/16/21 08:32 Dose: 10 ml Thiamine HCl (Thiamine 100 Mg Tablet) 100 mg PO DAILY [facility] Last Admin: 12/16/21 08:31 Dose: 100 mg Magnesium Oxide [Mag Ox] 400 mg PO DAILY 12/01/21 Multivitamin [Theragran] 1 each PO DAILY 12/01/21
[2021-12-16] MEDS: HALOPERIDOL 5 MG/ML VIAL IVP SCH (20:33)
[2021-12-16] MEDS: chlordiazePOXIDE 5 MG CAPSULE PO SCH (20:33)
[2021-12-16] MEDS: OLANZapine ODT 5 MG TABLET TL SCH (20:34)
[2021-12-16] MEDS: QUEtiapine 25 MG TABLET PO SCH (20:34)
[2021-12-17] MEDS: SODIUM CHLORIDE FLUSH 0.9% 10 ML SYRINGE IVP SCH ×3 (00:17→20:30)
--- NOTE | 2021-12-17 09:16 | PROVIDER PROGRESS NOTE ---
Assessment/Plan - Problem List (1) Metabolic encephalopathy Assessment/Plan: 12/17 pt is enjoying eating his breakfast, no complaints. pt is stable for d/c. [facility] assessed pt on yesterday, plan is pending, continue consult with social work therapist for Disposition planning 12/16/21 as his baseline, and stable. pt [place] without acute distress. discussed the care plan with pt's daughter on today morning, she called me. pt had tele psychiatrics consult. continue Ativan PRN, Zyprexia, haldol, seroquel. continue consult with social work therapist, pt need emergence guardian ship, plan to permanent placement for pt, pt is pending [facility] assessment as well. (2) Wernicke-Korsakoff syndrome (alcoholic) 12/17 Stable, patient walk into the hallway without distress. continue vitamin B1 and 12/16 stable. pt has chronic alcohol abuse hx. He had a formal evaluation by telepsych on December 07. He cannot make decisions for himself, needs a guardian, and will need permanent placement. Daughter is working with social work right now. continue vitamin B1 and (3) Alcohol abuse 12/16, pt has hx of alcohol abuse, stable now at hospital without acute withdrawal after he was treated at hospital. continue vitamin B1 and (4) Alcoholic cirrhosis 12/16 His AST/ALT were still elevated, an abnormal liver was seen, suggesting cirrhosis is the cause. it is likely caused by pt's chronic alcoholic abuse. (5) Fall 12/16 great improved. pt's orthostatic hypotension is resolve. pt walk at nurse station and hallway without distress or difficult. (6) Forehead contusion Closed head injury with normal CT scan of head and C-spine. Will offer pain meds if needed. (7) COVID-19 stable. pt has stable O2 sat without O2 supplement and pt has no acute re spiratory distress now. (8) Thyroid nodule Thyroid nodule/incidental finding, normal TSH, will consider W/U with a dedicated thyroid ultrasound (9) Homeless single person consult with social work therapist, likely plan to replace with permanent nurse home for pt. As per asssessment, he was living in his car until he went to alf, and he does not know where his car is. His daughter met with home and community services on December 11. By default she is power of attorney law clerk as his nurse living relative. She is working closely with social work to figure out what to do. He has a court appearance that will be done by video conference 12/15. - Current Meds Current Meds: Current Medications Generic Name Dose Route Start Last Admin Trade Name Freq PRN Reason Stop Dose Admin Acetaminophen 650 mg 12/04/21 21:17 12/12/21 08:32 Acetaminophen 325 Mg Tablet PO 650 mg Q4HR PRN Administration Pain 1 to 4 Chlordiazepoxide HCl 10 mg 12/12/21 21:00 12/16/21 20:33 Chlordiazepoxide 5 Mg Capsule PO 10 mg HS MARY Administration Haloperidol 1 mg 12/07/21 15:48 12/14/21 16:33 Haloperidol 5 Mg/Ml Vial IVP 1 mg Q6H PRN Administration Agitation Haloperidol 2 mg 12/11/21 21:00 12/16/21 20:33 Haloperidol 5 Mg/Ml Vial IVP 2 mg QPM MARY Administration Heparin Sodium (Porcine) 5,000 unit 12/05/21 09:00 12/16/21 20:33 Heparin 5,000 Unit/Ml Vial SUBQ 5,000 unit BID MARY Administration Sodium Chloride 250 mls @ 20 mls/hr 12/05/21 14:51 12/05/21 23:05 Normal Saline 0.9% IV Infused Q24H PRN Infusion TKO RATE Lorazepam 1 mg 12/11/21 12:04 12/14/21 22:05 Lorazepam 2 Mg/Ml Vial IVP 1 mg Q4H PRN Administration Agitation Magnesium Oxide 400 mg 12/05/21 09:00 12/16/21 08:31 Magnesium Oxide 400 Mg Tablet PO 400 mg DAILY MARY Administration Multivitamins 1 tab 12/05/21 09:00 12/16/21 08:31 Multivitamin Tablet PO 1 tab DAILY MARY Administration Nicotine 1 patch 12/12/21 01:01 12/16/21 08:31 Nicotine 14 Mg Patch TOP 1 patch DAILY AMRY Administration Olanzapine 5 mg 12/07/21 21:00 12/16/21 20:34 Olanzapine Odt 5 Mg Tablet TL 5 mg HS MARY Administration Polyethylene Glycol 17 gm 12/09/21 14:00 12/16/21 08:34 Polyethylene Glycol 3350 17 Gm Packet PO 17 gm DAILY MARY Administration Quetiapine Fumarate 50 mg 12/10/21 21:00 12/16/21 20:34 Quetiapine 25 Mg Tablet PO 50 mg QPM MARY Administration Sodium Chloride 10 ml 12/04/21 21:17 12/11/21 10:58 Sodium Chloride Flush 0.9% 10 Ml Syringe IVP 10 ml PRN PRN Administration NEEDED PER PROVIDER ORDERS Sodium Chloride 10 ml 12/05/21 01:00 12/17/21 00:17 Sodium Chloride Flush 0.9% 10 Ml Syringe IVP 10 ml 0100,0900,1700 MARY Administration Thiamine HCl 100 mg 12/04/21 09:00 12/16/21 08:31 Thiamine 100 Mg Tablet PO 100 mg DAILY MARY Administration - Lab Result Fish Bone Diagrams: 12/12/21 08:07 12/12/21 08:07 Subjective - Subjective Patient Reports: Resting Comfortably, No Complaints Objective Vital Signs: Vital Signs - 24 hr 12/16/21 12/17/21 12/17/21 15:41 04:00 08:18 Temperature 36.5 C 36.5 C 36.5 C Heart Rate [ 87 70 Brachial] Heart Rate [ 84 Radial] Respiratory 18 18 16 Rate Blood Pressure 123/79 104/77 130/80 [Right Brachial artery] O2 Saturation 100 96 96 Oxygen O2 Source Room air I&O (Last 24 Hrs): Intake and Output Totals x24h 12/15/21 12/16/21 12/17/21 23:59 23:59 23:59 Intake Total 2110 2286 580 Output Total 375 Balance 1735 2286 580 General: Alert, Cooperative, No acute distress HEENT: Atraumatic Neck: Supple Lymphatic: no adenopathy Neuro: Alert, Non Focal Cardiovascular: Regular rate, Normal S1, Normal S2 Respiratory: Chest non-tender, No respiratory distress Abdomen: Normal bowel sounds, Soft Extremities: Normal pulses - Results Results: Laboratory Results WBC 3.4 x10^3/uL (4.8-10.8) L 12/12/21 08:07 RBC 4.17 10^6/uL (4.70-6.10) L 12/12/21 08:07 Hgb 13.2 g/dL (14.0-18.0) L 12/12/21 08:07 Hct 40.3 % (42.0-52.0) L 12/12/21 08:07 MCV 96.6 fL (80.0-94.0) H 12/12/21 08:07 MCH 31.7 pg (27.0-31.0) H 12/12/21 08:07 MCHC 32.8 g/dL (32.0-36.0) 12/12/21 08:07 RDW 13.7 % (12.0-15.0) 12/12/21 08:07 Plt Count 146 10^3/uL (130-450) 12/12/21 08:07 MPV 12.8 fL (7.4-11.4) H 12/12/21 08:07 Neut # (Auto) 1.5 10^3/uL (1.5-6.6) 12/12/21 08:07 Lymph # (Auto) 1.4 10^3/uL (1.5-3.5) L 12/12/21 08:07 [place] # (Auto) 0.4 10^3/uL (0.0-1.0) 12/12/21 08:07 Eos # (Auto) 0.1 10^3/uL (0.0-0.7) 12/12/21 08:07 Baso # (Auto) 0.1 10^3/uL (0.0-0.1) 12/12/21 08:07 Absolute Nucleated RBC 0.00 x10^3/uL 12/12/21 08:07 Nucleated RBC % 0.0 /100WBC 12/12/21 08:07 PT 15.1 secs (9.9-12.6) H 12/04/21 23:33 INR 1.4 (0.8-1.2) H 12/04/21 23:33 APTT 24.8 secs (24.9-33.3) L 12/03/21 18:20 Sodium 135 mmol/L (135-145) 12/12/21 08:07 Potassium 3.8 mmol/L (3.5-5.0) 12/12/21 08:07 Chloride 101 mmol/L (101-111) 12/12/21 08:07 Carbon Dioxide 24 mmol/L (21-32) 12/12/21 08:07 Anion Gap 10.0 (6-13) 12/12/21 08:07 BUN 19 mg/dL (6-20) 12/12/21 08:07 Creatinine 0.7 mg/dL (0.6-1.2) 12/12/21 08:07 Estimated GFR (MDRD) 114 (>89) 12/12/21 08:07 Glucose 121 mg/dL (70-100) H 12/12/21 08:07 Calcium 8.7 mg/dL (8.5-10.3) 12/12/21 08:07 Phosphorus 3.6 mg/dL (2.5-4.6) 12/06/21 07:04 Magnesium 2.0 mg/dL (1.7-2.8) 12/06/21 07:04 Total Bilirubin 0.5 mg/dL (0.2-1.0) 12/12/21 08:07 Direct Bilirubin < 0.1 mg/dL (0.1-0.5) L 12/09/21 07:55 AST 149 IU/L (10-42) H 12/12/21 08:07 ALT 254 IU/L (10-60) H 12/12/21 08:07 Alkaline Phosphatase 80 IU/L (42-121) 12/12/21 08:07 Ammonia 12.5 umol/L (7-35) 12/08/21 07:54 Total Protein 7.1 g/dL (6.7-8.2) 12/12/21 08:07 Albumin 3.7 g/dL (3.2-5.5) 12/12/21 08:07 Globulin 3.4 g/dL (2.1-4.2) 12/12/21 08:07 Albumin/Globulin Ratio 1.1 (1.0-2.2) 12/12/21 08:07 Lipase 28 U/L (22-51) 12/06/21 07:04 Whole Bld Vitamin B1 TNP 12/04/21 16:52 TSH 1.25 uIU/mL (0.34-5.60) 12/03/21 18:20 Urine Color YELLOW 12/03/21 18:26 Urine Clarity CLEAR (CLEAR) 12/03/21 18:26 Urine pH 6.5 PH (5.0-7.5) 12/03/21 18:26 Ur Specific [place] 1.020 (1.002-1.030) 12/03/21 18:26 Urine Protein NEGATIVE mg/dL (NEGATIVE) 12/03/21 18:26 Urine Glucose (UA) NEGATIVE mg/dL (NEGATIVE) 12/03/21 18: Urine Ketones NEGATIVE mg/dL (NEGATIVE) 12/03/21 18: Urine Occult Blood NEGATIVE (NEGATIVE) 12/03/21 18:26 Urine Nitrite NEGATIVE (NEGATIVE) 12/03/21 18: Urine Bilirubin NEGATIVE (NEGATIVE) 12/03/21 18: Urine Urobilinogen 0.2 (NORMAL) E.U./dL (NORMAL) 12/03/21 18:26 Ur Leukocyte Esterase NEGATIVE (NEGATIVE) 12/03/21 18:26 Ur Microscopic Review NOT INDICATED 12/03/21 18:26 Urine Culture Comments NOT INDICATED 12/03/21 18:26 Nasal Adenovirus (PCR) NOT DETECTED 12/03/21 18:10 Nasal B. parapertussis DNA (PCR) NOT DETECTED 12/03/21 18:10 Nasal Coronavir 229E PCR NOT DETECTED 12/03/21 18:10 Nasal Coronavir HKU1 PCR NOT DETECTED 12/03/21 18:10 Nasal Coronavir NL63 PCR NOT DETECTED 12/03/21 18:10 Nasal Coronavir OC43 PCR NOT DETECTED 12/03/21 18:10 Nasal Enterovir/Rhinovir PCR NOT DETECTED 12/03/21 18:10 Nasal Influenza B PCR NOT DETECTED 12/03/21 18:10 Nasal Influenza A PCR NOT DETECTED 12/03/21 18:10 Nasal Parainfluen 1 PCR NOT DETECTED 12/03/21 18:10 Nasal Parainfluen 2 PCR NOT DETECTED 12/03/21 18:10 Nasal Parainfluen 3 PCR NOT DETECTED 12/03/21 18:10 Nasal Parainfluen 4 PCR NOT DETECTED 12/03/21 18:10 Nasal RSV (PCR) NOT DETECTED 12/03/21 18:10 Nasal B.pertussis DNA PCR NOT DETECTED 12/03/21 18:10 Nasal C.pneumoniae (PCR) NOT DETECTED 12/03/21 18:10 [place] Human Metapneumo PCR NOT DETECTED 12/03/21 18:10 Nasal M.pneumoniae (PCR) NOT DETECTED 12/03/21 18:10 Nasal SARS-CoV-2 (PCR) DETECTED A 12/03/21 18:10 Salicylates < 6.0 mg/dL 12/03/21 18:20 Urine Opiates Screen NEGATIVE (NEGATIVE) 12/03/21 18:26 Ur Oxycodone Screen NEGATIVE (NEGATIVE) 12/03/21 18:26 Urine Methadone Screen NEGATIVE (NEGATIVE) 12/03/21 18:26 Ur Propoxyphene Screen NEGATIVE (NEGATIVE) 12/03/21 18:26 Acetaminophen < 10 ug/mL (10-30) L 12/03/21 18:20 Ur Barbiturates Screen NEGATIVE (NEGATIVE) 12/03/21 18:26 Ur Tricyclics Screen NEGATIVE (NEGATIVE) 12/03/21 18:26 Ur Phencyclidine Scrn NEGATIVE (NEGATIVE) 12/03/21 18:26 Ur Amphetamine Screen NEGATIVE (NEGATIVE) 12/03/21 18:26 U Methamphetamines Scrn NEGATIVE (NEGATIVE) 12/03/21 18:26 U Benzodiazepines Scrn POSITIVE (NEGATIVE) H 12/03/21 18:26 Urine Cocaine Screen NEGATIVE (NEGATIVE) 12/03/21 18:26 U Cannabinoids Screen NEGATIVE (NEGATIVE) 12/03/21 18:26 Ethyl Alcohol < 5.0 mg/dL 12/03/21 18:20 Sepsis Event Note (H) - Evaluation Current Stage of Sepsis: Ruled out ABX Reporting Has patient been on IV antibiotics over the past 48 hours?: No Current Medications - Current Medications Current Medications: Active Medications Acetaminophen (Acetaminophen 325 Mg Tablet) 650 mg PO Q4HR PRN PRN Reason: Pain 1 to 4 Last Admin: 12/12/21 08:32 Dose: 650 mg Chlordiazepoxide HCl (Chlordiazepoxide 5 Mg Capsule) 10 mg PO HS [facility] Last Admin: 12/16/21 20:33 Dose: 10 mg Haloperidol (Haloperidol 5 Mg/Ml Vial) 1 mg IVP Q6H PRN PRN Reason: Agitation Last Admin: 12/14/21 16:33 Dose: 1 mg Haloperidol (Haloperidol 5 Mg/Ml Vial) 2 mg IVP QPM [facility] Last Admin: 12/16/21 20:33 Dose: 2 mg Heparin Sodium (Porcine) (Heparin 5,000 Unit/Ml Vial) 5,000 unit SUBQ BID MARY Last Admin: 12/16/21 20:33 Dose: 5,000 unit Sodium Chloride (Normal Saline 0.9%) 250 mls @ 20 mls/hr IV Q24H PRN PRN Reason: TKO RATE Last Infusion: 12/05/21 23:05 Dose: Infused Lorazepam (Lorazepam 2 Mg/Ml Vial) 1 mg IVP Q4H PRN PRN Reason: Agitation Last Admin: 12/14/21 22:05 Dose: 1 mg Magnesium Oxide (Magnesium Oxide 400 Mg Tablet) 400 mg PO DAILY [facility] Last Admin: 12/16/21 08:31 Dose: 400 mg Multivitamins (Multivitamin Tablet) 1 tab PO DAILY [facility] Last Admin: 12/16/21 08:31 Dose: 1 tab Nicotine (Nicotine 14 Mg Patch) 1 patch TOP DAILY [facility] Last Admin: 12/16/21 08:31 Dose: 1 patch Olanzapine (Olanzapine Odt 5 Mg Tablet) 5 mg TL HS [facility] Last Admin: 12/16/21 20:34 Dose: 5 mg Ondansetron HCl (Ondansetron 4 Mg/2 Ml Vial) 4 mg IVP Q6HR PRN PRN Reason: Nausea / Vomiting Polyethylene Glycol (Polyethylene Glycol 3350 17 Gm Packet) 17 gm PO DAILY [facility] Last Admin: 12/16/21 08:34 Dose: 17 gm Quetiapine Fumarate (Quetiapine 25 Mg Tablet) 50 mg PO QPM [facility] Last Admin: 12/16/21 20:34 Dose: 50 mg Sodium Chloride (Sodium Chloride Flush 0.9% 10 Ml Syringe) 10 ml IVP PRN PRN PRN Reason: NEEDED PER PROVIDER ORDERS Last Admin: 12/11/21 10:58 Dose: 10 ml Sodium Chloride (Sodium Chloride Flush 0.9% 10 Ml Syringe) 10 ml IVP 0100,0900,1700 [facility] Last Admin: 12/17/21 00:17 Dose: 10 ml Thiamine HCl (Thiamine 100 Mg Tablet) 100 mg PO DAILY [facility] Last Admin: 12/16/21 08:31 Dose: 100 mg Magnesium Oxide [Mag Ox] 400 mg PO DAILY 12/01/21 Multivitamin [Theragran] 1 each PO DAILY 12/01/21
[2021-12-17] MEDS: MULTIVITAMIN TABLET PO SCH (10:57)
[2021-12-17] MEDS: MAGNESIUM OXIDE 400 MG TABLET PO SCH (10:57)
[2021-12-17] MEDS: NICOTINE 14 MG PATCH TOP SCH (10:57)
[2021-12-17] MEDS: HEPARIN 5,000 UNIT/ML VIAL SUBQ SCH ×2 (10:57→20:30)
[2021-12-17] MEDS: polyethylene glycoL 3350 17 GM PACKET PO SCH (10:58)
[2021-12-17] MEDS: THIAMINE 100 MG TABLET PO SCH (10:58)
[2021-12-17] MEDS: chlordiazePOXIDE 5 MG CAPSULE PO SCH (20:33)
[2021-12-17] MEDS: OLANZapine ODT 5 MG TABLET TL SCH (20:33)
[2021-12-17] MEDS: QUEtiapine 25 MG TABLET PO SCH (20:33)
[2021-12-17] MEDS: HALOPERIDOL 5 MG/ML VIAL IVP SCH (20:34)
[2021-12-18] MEDS: SODIUM CHLORIDE FLUSH 0.9% 10 ML SYRINGE IVP SCH ×3 (02:04→16:04)
[2021-12-18] MEDS: polyethylene glycoL 3350 17 GM PACKET PO SCH (10:17)
[2021-12-18] MEDS: HEPARIN 5,000 UNIT/ML VIAL SUBQ SCH ×2 (10:22→20:02)
[2021-12-18] MEDS: NICOTINE 14 MG PATCH TOP SCH (10:27)
[2021-12-18] MEDS: MULTIVITAMIN TABLET PO SCH (10:28)
[2021-12-18] MEDS: MAGNESIUM OXIDE 400 MG TABLET PO SCH (10:29)
[2021-12-18] MEDS: THIAMINE 100 MG TABLET PO SCH (10:29)
--- NOTE | 2021-12-18 12:08 | PROVIDER PROGRESS NOTE ---
Assessment/Plan - Problem List (1) Metabolic encephalopathy Assessment/Plan: 12/18 Patient is comfortable resting in the bed, Stable. Patient walk at hallway without distress. Patient Was assessed by [facility], tin recovery worker was consulted for disposition planning. Patient is pending for discharge to Long-term care. 12/17 pt is enjoying eating his breakfast, no complaints. pt is stable for d/c. [facility] assessed pt on yesterday, plan is pending, continue consult with social welfare research worker for Disposition planning 12/16/21 as his baseline, and stable. pt [place] at [place] without acute distress. discussed the care plan with pt's daughter on today morning, she called me. pt had tele psychiatrics consult. continue Ativan PRN, Zyprexia, haldol, seroquel. continue consult with social welfare research worker, pt need emergence guardian ship, plan to permanent placement for pt, pt is pending [facility] assessment as well. (2) Wernicke-Korsakoff syndrome (alcoholic) 12/18, Stable, patient was already in the hospital For 14 days, we will graduated reduce librium medication. continue vitamin B1 and 12/17 Stable, patient walk into the hallway without distress. continue vitamin B1 and 12/16 stable. pt has chronic alcohol abuse hx. He had a formal evaluation by telepsych on December 07. He cannot make decisions for himself, needs a guardian, and will need permanent placement. Daughter is working with social work right now. continue vitamin B1 and (3) Alcohol abuse 12/16, pt has hx of alcohol abuse, stable now at hospital without acute withdrawal after he was treated at hospital. continue vitamin B1 and (4) Alcoholic cirrhosis 12/16 His AST/ALT were still elevated, an abnormal liver was seen, suggesting cirrhosis is the cause. it is likely caused by pt's chronic alcoholic abuse. (5) Fall 12/16 great improved. pt's orthostatic hypotension is resolve. pt walk at nurse station and hallway without distress or difficult. (6) Forehead contusion Closed head injury with normal CT scan of head and C-spine. Will offer pain meds if needed. (7) COVID-19 stable. pt has stable O2 sat without O2 supplement and pt has no acute respiratory distress now. (8) Thyroid nodule Thyroid nodule/incidental finding, normal TSH, will consider W/U with a dedicated thyroid ultrasound (9) Homeless single person consult with social welfare research worker, plan to replace with permanent nurse home for pt. - Current Meds Current Meds: Current Medications Generic Name Dose Route Start Last Admin Trade Name Freq PRN Reason Stop Dose Admin Acetaminophen 650 mg 12/04/21 21:17 12/12/21 08:32 Acetaminophen 325 Mg Tablet PO 650 mg Q4HR PRN Administration Pain 1 to 4 Haloperidol 1 mg 12/07/21 15:48 12/14/21 16:33 Haloperidol 5 Mg/Ml Vial IVP 1 mg Q6H PRN Administration Agitation Haloperidol 2 mg 12/11/21 21:00 12/17/21 20:34 Haloperidol 5 Mg/Ml Vial IVP 2 mg QPM MARY Administration Heparin Sodium (Porcine) 5,000 unit 12/05/21 09:00 12/18/21 10:22 Heparin 5,000 Unit/Ml Vial SUBQ 5,000 unit BID MARY Administration Sodium Chloride 250 mls @ 20 mls/hr 12/05/21 14:51 12/05/21 23:05 Normal Saline 0.9% IV Infused Q24H PRN Infusion TKO RATE Lorazepam 1 mg 12/11/21 12:04 12/14/21 22:05 Lorazepam 2 Mg/Ml Vial IVP 1 mg Q4H PRN Administration Agitation Magnesium Oxide 400 mg 12/05/21 09:00 12/18/21 10:29 Magnesium Oxide 400 Mg Tablet PO 400 mg DAILY MARY Administration Multivitamins 1 tab 12/05/21 09:00 12/18/21 10:28 Multivitamin Tablet PO 1 tab DAILY MARY Administration Nicotine 1 patch 12/12/21 01:01 12/18/21 10:27 Nicotine 14 Mg Patch TOP 1 patch DAILY MARY Administration Olanzapine 5 mg 12/07/21 21:00 12/17/21 20:33 Olanzapine Odt 5 Mg Tablet TL 5 mg HS MARY Administration Polyethylene Glycol 17 gm 12/09/21 14:00 12/18/21 10:17 Polyethylene Glycol 3350 17 Gm Packet PO 17 gm DAILY MARY Administration Quetiapine Fumarate 50 mg 12/10/21 21:00 12/17/21 20:33 Quetiapine 25 Mg Tablet PO 50 mg QPM MARY Administration Sodium Chloride 10 ml 12/04/21 21:17 12/11/21 10:58 Sodium Chloride Flush 0.9% 10 Ml Syringe IVP 10 ml PRN PRN Administration NEEDED PER PROVIDER ORDERS Sodium Chloride 10 ml 12/05/21 01:00 12/18/21 10:32 Sodium Chloride Flush 0.9% 10 Ml Syringe IVP 10 ml 0100,0900,1700 MARY Administration Thiamine HCl 100 mg 12/04/21 09:00 12/18/21 10:29 Thiamine 100 Mg Tablet PO 100 mg DAILY MARY Administration - Lab Result Fish Bone Diagrams: 12/12/21 08:07 12/12/21 08:07 - Additional Planning My Orders: My Active Orders 12/18/21 21:00 chlordiazePOXIDE [Librium] 5 mg PO HS Subjective - Subjective Patient Reports: Resting Comfortably Nursing Reports: No Complaints Objective Vital Signs: Vital Signs - 24 hr 12/17/21 12/17/21 12/18/21 16:00 23:28 08:00 Temperature 36.7 C 36.5 C Heart Rate [ 81 91 Brachial] Heart Rate [ 84 Radial] Respiratory 17 18 18 Rate Blood Pressure 119/76 106/65 104/72 [Right Brachial artery] O2 Saturation 98 95 95 Oxygen O2 Source Room air I&O (Last 24 Hrs): Intake and Output Totals x24h 12/16/21 12/17/21 12/18/21 23:59 23:59 23:59 Intake Total 2286 2652 830 Balance 2286 2652 830 General: Alert, Cooperative, No acute distress HEENT: Atraumatic Neck: Supple Lymphatic: no adenopathy Neuro: Alert, Non Focal Cardiovascular: Regular rate, Normal S1, Normal S2 Respiratory: Chest non-tender, No respiratory distress Abdomen: Normal bowel sounds, Soft Extremities: Normal pulses - Results Results: Laboratory Results WBC 3.4 x10^3/uL (4.8-10.8) L 12/12/21 08:07 RBC 4.17 10^6/uL (4.70-6.10) L 12/12/21 08:07 Hgb 13.2 g/dL (14.0-18.0) L 12/12/21 08:07 Hct 40.3 % (42.0-52.0) L 12/12/21 08:07 MCV 96.6 fL (80.0-94.0) H 12/12/21 08:07 MCH 31.7 pg (27.0-31.0) H 12/12/21 08:07 MCHC 32.8 g/dL (32.0-36.0) 12/12/21 08:07 RDW 13.7 % (12.0-15.0) 12/12/21 08:07 Plt Count 146 10^3/uL (130-450) 12/12/21 08:07 MPV 12.8 fL (7.4-11.4) H 12/12/21 08:07 Neut # (Auto) 1.5 10^3/uL (1.5-6.6) 12/12/21 08:07 Lymph # (Auto) 1.4 10^3/uL (1.5-3.5) L 12/12/21 08:07 [place] # (Auto) 0.4 10^3/uL (0.0-1.0) 12/12/21 08:07 Eos # (Auto) 0.1 10^3/uL (0.0-0.7) 12/12/21 08:07 Baso # (Auto) 0.1 10^3/uL (0.0-0.1) 12/12/21 08:07 Absolute Nucleated RBC 0.00 x10^3/uL 12/12/21 08:07 Nucleated RBC % 0.0 /100WBC 12/12/21 08:07 PT 15.1 secs (9.9-12.6) H 12/04/21 23:33 INR 1.4 (0.8-1.2) H 12/04/21 23:33 APTT 24.8 secs (24.9-33.3) L 12/03/21 18:20 Sodium 135 mmol/L (135-145) 12/12/21 08:07 Potassium 3.8 mmol/L (3.5-5.0) 12/12/21 08:07 Chloride 101 mmol/L (101-111) 12/12/21 08:07 Carbon Dioxide 24 mmol/L (21-32) 12/12/21 08:07 Anion Gap 10.0 (6-13) 12/12/21 08:07 BUN 19 mg/dL (6-20) 12/12/21 08:07 Creatinine 0.7 mg/dL (0.6-1.2) 12/12/21 08:07 Estimated GFR (MDRD) 114 (>89) 12/12/21 08:07 Glucose 121 mg/dL (70-100) H 12/12/21 08:07 Calcium 8.7 mg/dL (8.5-10.3) 12/12/21 08:07 Phosphorus 3.6 mg/dL (2.5-4.6) 12/06/21 07:04 Magnesium 2.0 mg/dL (1.7-2.8) 12/06/21 07:04 Total Bilirubin 0.5 mg/dL (0.2-1.0) 12/12/21 08:07 Direct Bilirubin < 0.1 mg/dL (0.1-0.5) L 12/09/21 07:55 AST 149 IU/L (10-42) H 12/12/21 08:07 ALT 254 IU/L (10-60) H 12/12/21 08:07 Alkaline Phosphatase 80 IU/L (42-121) 12/12/21 08:07 Ammonia 12.5 umol/L (7-35) 12/08/21 07:54 Total Protein 7.1 g/dL (6.7-8.2) 12/12/21 08:07 Albumin 3.7 g/dL (3.2-5.5) 12/12/21 08:07 Globulin 3.4 g/dL (2.1-4.2) 12/12/21 08:07 Albumin/Globulin Ratio 1.1 (1.0-2.2) 12/12/21 08:07 Lipase 28 U/L (22-51) 12/06/21 07:04 Whole Bld Vitamin B1 TNP 12/04/21 16:52 TSH 1.25 uIU/mL (0.34-5.60) 12/03/21 18:20 Urine Color YELLOW 12/03/21 18:26 Urine Clarity CLEAR (CLEAR) 12/03/21 18:26 Urine pH 6.5 PH (5.0-7.5) 12/03/21 18:26 Ur Specific [place] 1.020 (1.002-1.030) 12/03/21 18:26 Urine Protein NEGATIVE mg/dL (NEGATIVE) 12/03/21 18:26 Urine Glucose (UA) NEGATIVE mg/dL (NEGATIVE) 12/03/21 18:26 Urine Ketones NEGATIVE mg/dL (NEGATIVE) 12/03/21 18:26 Urine Occult Blood NEGATIVE (NEGATIVE) 12/03/21 18: Urine Nitrite NEGATIVE (NEGATIVE) 12/03/21 18: Urine Bilirubin NEGATIVE (NEGATIVE) 12/03/21 18: Urine Urobilinogen 0.2 (NORMAL) E.U./dL (NORMAL) 12/03/21 18:26 Ur Leukocyte Esterase NEGATIVE (NEGATIVE) 12/03/21 18:26 Ur Microscopic Review NOT INDICATED 12/03/21 18:26 Urine Culture Comments NOT INDICATED 12/03/21 18:26 Nasal Adenovirus (PCR) NOT DETECTED 12/03/21 18:10 Nasal B. parapertussis DNA (PCR) NOT DETECTED 12/03/21 18:10 Nasal Coronavir 229E PCR NOT DETECTED 12/03/21 18:10 Nasal Coronavir HKU1 PCR NOT DETECTED 12/03/21 18:10 Nasal Coronavir NL63 PCR NOT DETECTED 12/03/21 18:10 Nasal Coronavir OC43 PCR NOT DETECTED 12/03/21 18:10 Nasal Enterovir/Rhinovir PCR NOT DETECTED 12/03/21 18:10 Nasal Influenza B PCR NOT DETECTED 12/03/21 18:10 Nasal Influenza A PCR NOT DETECTED 12/03/21 18:10 Nasal Parainfluen 1 PCR NOT DETECTED 12/03/21 18:10 Nasal Parainfluen 2 PCR NOT DETECTED 12/03/21 18:10 Nasal Parainfluen 3 PCR NOT DETECTED 12/03/21 18:10 Nasal Parainfluen 4 PCR NOT DETECTED 12/03/21 18:10 Nasal RSV (PCR) NOT DETECTED 12/03/21 18:10 Nasal B.pertussis DNA PCR NOT DETECTED 12/03/21 18:10 Nasal C.pneumoniae (PCR) NOT DETECTED 12/03/21 18:10 [place] Human Metapneumo PCR NOT DETECTED 12/03/21 18:10 Nasal M.pneumoniae (PCR) NOT DETECTED 12/03/21 18:10 Nasal SARS-CoV-2 (PCR) DETECTED A 12/03/21 18:10 Salicylates < 6.0 mg/dL 12/03/21 18:20 Urine Opiates Screen NEGATIVE (NEGATIVE) 12/03/21 18:26 Ur Oxycodone Screen NEGATIVE (NEGATIVE) 12/03/21 18:26 Urine Methadone Screen NEGATIVE (NEGATIVE) 12/03/21 18:26 Ur Propoxyphene Screen NEGATIVE (NEGATIVE) 12/03/21 18:26 Acetaminophen < 10 ug/mL (10-30) L 12/03/21 18:20 Ur Barbiturates Screen NEGATIVE (NEGATIVE) 12/03/21 18:26 Ur Tricyclics Screen NEGATIVE (NEGATIVE) 12/03/21 18:26 Ur Phencyclidine Scrn NEGATIVE (NEGATIVE) 12/03/21 18:26 Ur Amphetamine Screen NEGATIVE (NEGATIVE) 12/03/21 18:26 U Methamphetamines Scrn NEGATIVE (NEGATIVE) 12/03/21 18:26 U Benzodiazepines Scrn POSITIVE (NEGATIVE) H 12/03/21 18:26 Urine Cocaine Screen NEGATIVE (NEGATIVE) 12/03/21 18:26 U Cannabinoids Screen NEGATIVE (NEGATIVE) 12/03/21 18:26 Ethyl Alcohol < 5.0 mg/dL 12/03/21 18:20 Sepsis Event Note (H) - Evaluation Current Stage of Sepsis: Ruled out ABX Reporting Has patient been on IV antibiotics over the past 48 hours?: No
[2021-12-18] MEDS: HALOPERIDOL 5 MG/ML VIAL IVP SCH (20:03)
[2021-12-18] MEDS: SODIUM CHLORIDE FLUSH 0.9% 10 ML SYRINGE IVP PRN (20:03)
[2021-12-18] MEDS: chlordiazePOXIDE 5 MG CAPSULE PO SCH (20:04)
[2021-12-18] MEDS: OLANZapine ODT 5 MG TABLET TL SCH (20:04)
[2021-12-18] MEDS: QUEtiapine 25 MG TABLET PO SCH (20:04)
[2021-12-19] MEDS: SODIUM CHLORIDE FLUSH 0.9% 10 ML SYRINGE IVP SCH ×3 (00:14→16:31)
[2021-12-19] MEDS: NICOTINE 14 MG PATCH TOP SCH (08:10)
[2021-12-19] MEDS: HEPARIN 5,000 UNIT/ML VIAL SUBQ SCH ×2 (08:10→20:04)
[2021-12-19] MEDS: MAGNESIUM OXIDE 400 MG TABLET PO SCH (08:11)
[2021-12-19] MEDS: THIAMINE 100 MG TABLET PO SCH (08:12)
[2021-12-19] MEDS: MULTIVITAMIN TABLET PO SCH (08:12)
[2021-12-19] MEDS: polyethylene glycoL 3350 17 GM PACKET PO SCH (08:12)
--- NOTE | 2021-12-19 10:53 | PROVIDER PROGRESS NOTE ---
Assessment/Plan - Problem List (1) Metabolic encephalopathy Assessment/Plan: 12/19 pt is happy to eat his breakfast, and stable, he walks at hallway without distress. Patient was consulted with social work for disposition planning, Patient is pending for placement 12/18 Patient is comfortable resting in the bed, Stable. Patient walk at hallway without distress. Patient Was assessed by [facility], pastoral worker was consulted for disposition planning. Patient is pending for discharge to Long-term care. 12/17 pt is enjoying eating his breakfast, no complaints. pt is stable for d/c. [facility] assessed pt on yesterday, plan is pending, continue consult with nursing home social worker for Disposition planning 12/16/21 as his baseline, and stable. pt walk at hillway without acute distress. discussed the care plan with pt's daughter on today morning, she called me. pt had tele psychiatrics consult. continue Ativan PRN, Zyprexia, haldol, seroquel. continue consult with nursing home social worker, pt need emergence guardian ship, plan to permanent placement for pt, pt is pending [facility] assessment as well. (2) Wernicke-Korsakoff syndrome (alcoholic) 12/18, Stable, patient was already in the hospital For 14 days, we will graduated reduce librium medication. continue vitamin B1 and 12/17 Stable, patient walk into the hallway without distress. continue vitamin B1 and 12/16 stable. pt has chronic alcohol abuse hx. He had a formal evaluation by telepsych on December 07. He cannot make decisions for himself, needs a guardian, and will need permanent placement. Daughter is working with [employer] wo rk right now. continue vitamin B1 and (3) Alcohol abuse 12/16, pt has hx of alcohol abuse, stable now at hospital without acute withdrawal after he was treated at hospital. continue vitamin B1 and (4) Alcoholic cirrhosis 12/16 His AST/ALT were still elevated, an abnormal liver was seen, suggesting cirrhosis is the cause. it is likely caused by pt's chronic alcoholic abuse. (5) Fall 12/16 great improved. pt's orthostatic hypotension is resolve. pt walk at nurse station and hallway without distress or difficult. (6) Forehead contusion Closed head injury with normal CT scan of head and C-spine. Will offer pain meds if needed. (7) COVID-19 stable. pt has stable O2 sat without O2 supplement and pt has no acute respiratory distress now. (8) Thyroid nodule Thyroid nodule/incidental finding, normal TSH, will consider W/U with a dedicated thyroid ultrasound (9) Homeless single person consult with nursing home social worker, plan to replace with permanent nurse home for pt. - Current Meds Current Meds: Current Medications Generic Name Dose Route Start Last Admin Trade Name Freq PRN Reason Stop Dose Admin Acetaminophen 650 mg 12/04/21 21:17 12/12/21 08:32 Acetaminophen 325 Mg Tablet PO 650 mg Q4HR PRN Administration Pain 1 to 4 Chlordiazepoxide HCl 5 mg 12/18/21 21:00 12/18/21 20:04 Chlordiazepoxide 5 Mg Capsule PO 5 mg HS MARY Administration Haloperidol 1 mg 12/07/21 15:48 12/14/21 16:33 Haloperidol 5 Mg/Ml Vial IVP 1 mg Q6H PRN Administration Agitation Heparin Sodium (Porcine) 5,000 unit 12/05/21 09:00 12/19/21 08:10 Heparin 5,000 Unit/Ml Vial SUBQ 5,000 unit BID MARY Administration Sodium Chloride 250 mls @ 20 mls/hr 12/05/21 14:51 12/05/21 23:05 Normal Saline 0.9% IV Infused Q24H PRN Infusion TKO RATE Lorazepam 1 mg 12/11/21 12:04 12/14/21 22:05 Lorazepam 2 Mg/Ml Vial IVP 1 mg Q4H PRN Administration Agitation Magnesium Oxide 400 mg 12/05/21 09:00 12/19/21 08:11 Magnesium Oxide 400 Mg Tablet PO 400 mg DAILY MARY Administration Multivitamins 1 tab 12/05/21 09:00 12/19/21 08:12 Multivitamin Tablet PO 1 tab DAILY MARY Administration Nicotine 1 patch 12/12/21 01:01 12/19/21 08:10 Nicotine 14 Mg Patch TOP 1 patch DAILY MARY Administration Olanzapine 5 mg 12/07/21 21:00 12/18/21 20:04 Olanzapine Odt 5 Mg Tablet TL 5 mg HS MARY Administration Polyethylene Glycol 17 gm 12/09/21 14:00 12/19/21 08:12 Polyethylene Glycol 3350 17 Gm Packet PO 17 gm DAILY MARY Administration Quetiapine Fumarate 50 mg 12/10/21 21:00 12/18/21 20:04 Quetiapine 25 Mg Tablet PO 50 mg QPM MARY Administration Sodium Chloride 10 ml 12/04/21 21:17 12/18/21 20:03 Sodium Chloride Flush 0.9% 10 Ml Syringe IVP 10 ml PRN PRN Administration NEEDED PER PROVIDER ORDERS Sodium Chloride 10 ml 12/05/21 01:00 12/19/21 00:14 Sodium Chloride Flush 0.9% 10 Ml Syringe IVP 10 ml 0100,0900,1700 MARY Administration Thiamine HCl 100 mg 12/04/21 09:00 12/19/21 08:12 Thiamine 100 Mg Tablet PO 100 mg DAILY MARY Administration - Lab Result Fish Bone Diagrams: 12/12/21 08:07 12/12/21 08:07 - Additional Planning My Orders: My Active Orders 12/18/21 21:00 chlordiazePOXIDE [Librium] 5 mg PO HS 12/19/21 21:00 haloperidoL [Haldol] 2 mg PO DAILY Subjective - Subjective Patient Reports: Resting Comfortably, No Complaints Objective Vital Signs: Vital Signs - 24 hr 12/18/21 12/19/21 12/19/21 15:52 01:28 07:40 Temperature 36.3 C L 36.6 C 36.6 C Heart Rate [ 85 80 Brachial] Heart Rate [ 84 Radial] Respiratory 20 16 17 Rate Blood Pressure 145/82 H [Left Brachial artery] Blood Pressure 116/71 107/78 [Right Brachial artery] O2 Saturation 99 96 100 Oxygen O2 Source Room air I&O (Last 24 Hrs): Intake and Output Totals x24h 12/17/21 12/18/21 12/19/21 23:59 23:59 23:59 Intake Total 2652 2510 716 Output Total 150 Balance 2652 2360 716 General: Alert, Cooperative, No acute distress HEENT: Atraumatic Neck: Supple Lymphatic: no adenopathy Neuro: Alert, Non Focal Cardiovascular: Regular rate, Normal S1, Normal S2 Respiratory: Chest non-tender, No respiratory distress Abdomen: Normal bowel sounds, Soft Extremities: Normal pulses - Results Results: Laboratory Results WBC 3.4 x10^3/uL (4.8-10.8) L 12/12/21 08:07 RBC 4.17 10^6/uL (4.70-6.10) L 12/12/21 08:07 Hgb 13.2 g/dL (14.0-18.0) L 12/12/21 08:07 Hct 40.3 % (42.0-52.0) L 12/12/21 08:07 MCV 96.6 fL (80.0-94.0) H 12/12/21 08:07 MCH 31.7 pg (27.0-31.0) H 12/12/21 08:07 MCHC 32.8 g/dL (32.0-36.0) 12/12/21 08:07 RDW 13.7 % (12.0-15.0) 12/12/21 08:07 Plt Count 146 10^3/uL (130-450) 12/12/21 08:07 MPV 12.8 fL (7.4-11.4) H 12/12/21 08:07 Neut # (Auto) 1.5 10^3/uL (1.5-6.6) 12/12/21 08:07 Lymph # (Auto) 1.4 10^3/uL (1.5-3.5) L 12/12/21 08:07 [place] # (Auto) 0.4 10^3/uL (0.0-1.0) 12/12/21 08:07 Eos # (Auto) 0.1 10^3/uL (0.0-0.7) 12/12/21 08:07 Baso # (Auto) 0.1 10^3/uL (0.0-0.1) 12/12/21 08:07 Absolute Nucleated RBC 0.00 x10^3/uL 12/12/21 08:07 Nucleated RBC % 0.0 /100WBC 12/12/21 08:07 PT 15.1 secs (9.9-12.6) H 12/04/21 23:33 INR 1.4 (0.8-1.2) H 12/04/21 23:33 APTT 24.8 secs (24.9-33.3) L 12/03/21 18:20 Sodium 135 mmol/L (135-145) 12/12/21 08:07 Potassium 3.8 mmol/L (3.5-5.0) 12/12/21 08:07 Chloride 101 mmol/L (101-111) 12/12/21 08:07 Carbon Dioxide 24 mmol/L (21-32) 12/12/21 08:07 Anion Gap 10.0 (6-13) 12/12/21 08:07 BUN 19 mg/dL (6-20) 12/12/21 08:07 Creatinine 0.7 mg/dL (0.6-1.2) 12/12/21 08:07 Estimated GFR (MDRD) 114 (>89) 12/12/21 08:07 Glucose 121 mg/dL (70-100) H 12/12/21 08:07 Calcium 8.7 mg/dL (8.5-10.3) 12/12/21 08:07 Phosphorus 3.6 mg/dL (2.5-4.6) 12/06/21 07:04 Magnesium 2.0 mg/dL (1.7-2.8) 12/06/21 07:04 Total Bilirubin 0.5 mg/dL (0.2-1.0) 12/12/21 08:07 Direct Bilirubin < 0.1 mg/dL (0.1-0.5) L 12/09/21 07:55 AST 149 IU/L (10-42) H 12/12/21 08:07 ALT 254 IU/L (10-60) H 12/12/21 08:07 Alkaline Phosphatase 80 IU/L (42-121) 12/12/21 08:07 Ammonia 12.5 umol/L (7-35) 12/08/21 07:54 Total Protein 7.1 g/dL (6.7-8.2) 12/12/21 08:07 Albumin 3.7 g/dL (3.2-5.5) 12/12/21 08:07 Globulin 3.4 g/dL (2.1-4.2) 12/12/21 08:07 Albumin/Globulin Ratio 1.1 (1.0-2.2) 12/12/21 08:07 Lipase 28 U/L (22-51) 12/06/21 07:04 Whole Bld Vitamin B1 TNP 12/04/21 16:52 TSH 1.25 uIU/mL (0.34-5.60) 12/03/21 18:20 Urine Color YELLOW 12/03/21 18:26 Urine Clarity CLEAR (CLEAR) 12/03/21 18:26 Urine pH 6.5 PH (5.0-7.5) 12/03/21 18:26 Ur Specific [place] 1.020 (1.002-1.030) 12/03/21 18:26 Urine Protein NEGATIVE mg/dL (NEGATIVE) 12/03/21 18:26 Urine Glucose (UA) NEGATIVE mg/dL (NEGATIVE) 12/03/21 18: Urine Ketones NEGATIVE mg/dL (NEGATIVE) 12/03/21 18: Urine Occult Blood NEGATIVE (NEGATIVE) 12/03/21 18: Urine Nitrite NEGATIVE (NEGATIVE) 12/03/21 18: Urine Bilirubin NEGATIVE (NEGATIVE) 12/03/21 18: Urine Urobilinogen 0.2 (NORMAL) E.U./dL (NORMAL) 12/03/21 18: Ur Leukocyte Esterase NEGATIVE (NEGATIVE) 12/03/21 18:26 Ur Microscopic Review NOT INDICATED 12/03/21 18:26 Urine Culture Comments NOT INDICATED 12/03/21 18:26 Nasal Adenovirus (PCR) NOT DETECTED 12/03/21 18:10 Nasal B. parapertussis DNA (PCR) NOT DETECTED 12/03/21 18:10 Nasal Coronavir 229E PCR NOT DETECTED 12/03/21 18:10 Nasal Coronavir HKU1 PCR NOT DETECTED 12/03/21 18:10 Nasal Coronavir NL63 PCR NOT DETECTED 12/03/21 18:10 Nasal Coronavir OC43 PCR NOT DETECTED 12/03/21 18:10 Nasal Enterovir/Rhinovir PCR NOT DETECTED 12/03/21 18:10 Nasal Influenza B PCR NOT DETECTED 12/03/21 18:10 Nasal Influenza A PCR NOT DETECTED 12/03/21 18:10 Nasal Parainfluen 1 PCR NOT DETECTED 12/03/21 18:10 Nasal Parainfluen 2 PCR NOT DETECTED 12/03/21 18:10 Nasal Parainfluen 3 PCR NOT DETECTED 12/03/21 18:10 Nasal Parainfluen 4 PCR NOT DETECTED 12/03/21 18:10 Nasal RSV (PCR) NOT DETECTED 12/03/21 18:10 Nasal B.pertussis DNA PCR NOT DETECTED 12/03/21 18:10 Nasal C.pneumoniae (PCR) NOT DETECTED 12/03/21 18:10 Juan Daniel Human Metapneumo PCR NOT DETECTED 12/03/21 18:10 Nasal M.pneumoniae (PCR) NOT DETECTED 12/03/21 18:10 Nasal SARS-CoV-2 (PCR) DETECTED A 12/03/21 18:10 Salicylates < 6.0 mg/dL 12/03/21 18:20 Urine Opiates Screen NEGATIVE (NEGATIVE) 12/03/21 18:26 Ur Oxycodone Screen NEGATIVE (NEGATIVE) 12/03/21 18:26 Urine Methadone Screen NEGATIVE (NEGATIVE) 12/03/21 18:26 Ur Propoxyphene Screen NEGATIVE (NEGATIVE) 12/03/21 18:26 Acetaminophen < 10 ug/mL (10-30) L 12/03/21 18:20 Ur Barbiturates Screen NEGATIVE (NEGATIVE) 12/03/21 18:26 Ur Tricyclics Screen NEGATIVE (NEGATIVE) 12/03/21 18:26 Ur Phencyclidine Scrn NEGATIVE (NEGATIVE) 12/03/21 18:26 Ur Amphetamine Screen NEGATIVE (NEGATIVE) 12/03/21 18:26 U Methamphetamines Scrn NEGATIVE (NEGATIVE) 12/03/21 18:26 U Benzodiazepines Scrn POSITIVE (NEGATIVE) H 12/03/21 18:26 Urine Cocaine Screen NEGATIVE (NEGATIVE) 12/03/21 18:26 U Cannabinoids Screen NEGATIVE (NEGATIVE) 12/03/21 18:26 Ethyl Alcohol < 5.0 mg/dL 12/03/21 18:20 Sepsis Event Note (H) - Evaluation Current Stage of Sepsis: Ruled out ABX Reporting Has patient been on IV antibiotics over the past 48 hours?: No Current Medications - Current Medications Current Medications: Active Medications Acetaminophen (Acetaminophen 325 Mg Tablet) 650 mg PO Q4HR PRN PRN Reason: Pain 1 to 4 Last Admin: 12/12/21 08:32 Dose: 650 mg Chlordiazepoxide HCl (Chlordiazepoxide 5 Mg Capsule) 5 mg PO HS MARY Last Admin: 12/18/21 20:04 Dose: 5 mg Haloperidol (Haloperidol 5 Mg/Ml Vial) 1 mg IVP Q6H PRN PRN Reason: Agitation Last Admin: 12/14/21 16:33 Dose: 1 mg Haloperidol (Haloperidol 1 Mg Tablet) 2 mg PO DAILY MARY Heparin Sodium (Porcine) (Heparin 5,000 Unit/Ml Vial) 5,000 unit SUBQ BID MARY Last Admin: 12/19/21 08:10 Dose: 5,000 unit Sodium Chloride (Normal Saline 0.9%) 250 mls @ 20 mls/hr IV Q24H PRN PRN Reason: TKO RATE Last Infusion: 12/05/21 23:05 Dose: Infused Lorazepam (Lorazepam 2 Mg/Ml Vial) 1 mg IVP Q4H PRN PRN Reason: Agitation Last Admin: 12/14/21 22:05 Dose: 1 mg Magnesium Oxide (Magnesium Oxide 400 Mg Tablet) 400 mg PO DAILY [facility] Last Admin: 12/19/21 08:11 Dose: 400 mg Multivitamins (Multivitamin Tablet) 1 tab PO DAILY [facility] Last Admin: 12/19/21 08:12 Dose: 1 tab Nicotine (Nicotine 14 Mg Patch) 1 patch TOP DAILY [facility] Last Admin: 12/19/21 08:10 Dose: 1 patch Olanzapine (Olanzapine Odt 5 Mg Tablet) 5 mg TL HS [facility] Last Admin: 12/18/21 20:04 Dose: 5 mg Ondansetron HCl (Ondansetron 4 Mg/2 Ml Vial) 4 mg IVP Q6HR PRN PRN Reason: Nausea / Vomiting Polyethylene Glycol (Polyethylene Glycol 3350 17 Gm Packet) 17 gm PO DAILY [facility] Last Admin: 12/19/21 08:12 Dose: 17 gm Quetiapine Fumarate (Quetiapine 25 Mg Tablet) 50 mg PO QPM [facility] Last Admin: 12/18/21 20:04 Dose: 50 mg Sodium Chloride (Sodium Chloride Flush 0.9% 10 Ml Syringe) 10 ml IVP PRN PRN PRN Reason: NEEDED PER PROVIDER ORDERS Last Admin: 12/18/21 20:03 Dose: 10 ml Sodium Chloride (Sodium Chloride Flush 0.9% 10 Ml Syringe) 10 ml IVP 0100,0900,1700 [facility] Last Admin: 12/19/21 00:14 Dose: 10 ml Thiamine HCl (Thiamine 100 Mg Tablet) 100 mg PO DAILY [facility] Last Admin: 12/19/21 08:12 Dose: 100 mg Magnesium Oxide [Mag Ox] 400 mg PO DAILY 12/01/21 Multivitamin [Theragran] 1 each PO DAILY 12/01/21
[2021-12-19] MEDS: haloperidoL 1 MG TABLET PO SCH (20:15)
[2021-12-19] MEDS: chlordiazePOXIDE 5 MG CAPSULE PO SCH (20:15)
[2021-12-19] MEDS: OLANZapine ODT 5 MG TABLET TL SCH (20:16)
[2021-12-19] MEDS: QUEtiapine 25 MG TABLET PO SCH (20:16)
[2021-12-19] MEDS: LORazepam 2 MG/ML VIAL IVP PRN (23:45)
[2021-12-20] MEDS: SODIUM CHLORIDE FLUSH 0.9% 10 ML SYRINGE IVP SCH ×3 (01:19→17:33)
--- NOTE | 2021-12-20 08:37 | PROVIDER PROGRESS NOTE ---
Assessment/Plan - Problem List (1) Metabolic encephalopathy Assessment/Plan: Patient had an incident last night where he woke up significantly agitated after what he describes as a nightmare in which he thought his daughter was being abducted. It resulted in a code [place] during which he was fighting with security personnel. He then called the police. Today he appears to be back to normal functioning. 1:1 was ordered shortly after the incident. Was discontinued later in the day for concern about possibly triggering an episode. (2) Wernicke-Korsakoff syndrome (alcoholic) Assessment/Plan: Patient has history of chronic alcohol abuse. He had a formal evaluation by telepsych on December 07 06/27/2022. He cannot make decisions for himself. He needs a guardian and will also need permanent placement. Daughter is not able to to accommodate the patient at her house due to behavioral disturbances on his part and she has a little child at home. Continue vitamin B1 100 mg p.o. daily. (3) Alcohol abuse Assessment/Plan: Patient has not had any alcoholic beverage throughout this time in the hospital. (4) COVID-19 Assessment/Plan: This was diagnosed on 01/03/2022. Patient is currently asymptomatic and breathing comfortably on room air (5) Homeless single person Assessment/Plan: Social work helping to facilitate placement. This has been particularly difficult due to some behavioral problems. - Current Meds Current Meds: Current Medications Generic Name Dose Route Start Last Admin Trade Name Freq PRN Reason Stop Dose Admin Acetaminophen 650 mg 12/04/21 21:17 12/12/21 08:32 Acetaminophen 325 Mg Tablet PO 650 mg Q4HR PRN Administration Pain 1 to 4 Chlordiazepoxide HCl 5 mg 12/18/21 21:00 12/19/21 20:15 Chlordiazepoxide 5 Mg Capsule PO 5 mg HS MARY Administration Haloperidol 1 mg 12/07/21 15:48 12/14/21 16:33 Haloperidol 5 Mg/Ml Vial IVP 1 mg Q6H PRN Administration Agitation Haloperidol 2 mg 12/19/21 21:00 12/19/21 20:15 Haloperidol 1 Mg Tablet PO 2 mg DAILY MARY Administration Heparin Sodium (Porcine) 5,000 unit 12/05/21 09:00 12/19/21 20:04 Heparin 5,000 Unit/Ml Vial SUBQ 5,000 unit BID MARY Administration Sodium Chloride 250 mls @ 20 mls/hr 12/05/21 14:51 12/05/21 23:05 Normal Saline 0.9% IV Infused Q24H PRN Infusion TKO RATE Lorazepam 1 mg 12/11/21 12:04 12/19/21 23:45 Lorazepam 2 Mg/Ml Vial IVP 1 mg Q4H PRN Administration Agitation Magnesium Oxide 400 mg 12/05/21 09:00 12/19/21 08:11 Magnesium Oxide 400 Mg Tablet PO 400 mg DAILY MARY Administration Multivitamins 1 tab 12/05/21 09:00 12/19/21 08:12 Multivitamin Tablet PO 1 tab DAILY MARY Administration Nicotine 1 patch 12/12/21 01:01 12/19/21 08:10 Nicotine 14 Mg Patch TOP 1 patch DAILY MARY Administration Olanzapine 5 mg 12/07/21 21:00 12/19/21 20:16 Olanzapine Odt 5 Mg Tablet TL 5 mg HS MARY Administration Polyethylene Glycol 17 gm 12/09/21 14:00 12/19/21 08:12 Polyethylene Glycol 3350 17 Gm Packet PO 17 gm DAILY MARY Administration Quetiapine Fumarate 50 mg 12/10/21 21:00 12/19/21 20:16 Quetiapine 25 Mg Tablet PO 50 mg QPM MARY Administration Sodium Chloride 10 ml 12/04/21 21:17 12/18/21 20:03 Sodium Chloride Flush 0.9% 10 Ml Syringe IVP 10 ml PRN PRN Administration NEEDED PER PROVIDER ORDERS Sodium Chloride 10 ml 12/05/21 01:00 12/20/21 01:19 Sodium Chloride Flush 0.9% 10 Ml Syringe IVP 10 ml 0100,0900,1700 MARY Administration Thiamine HCl 100 mg 12/04/21 09:00 12/19/21 08:12 Thiamine 100 Mg Tablet PO 100 mg DAILY MARY Administration - Lab Result Fish Bone Diagrams: 12/12/21 08:07 12/12/21 08:07 Subjective - Subjective Patient Reports: Other (He was seated side of the bed at time of exam. He appeared calm. He appeared alert and oriented x4. He expressed having a nightmare last night in which his daughter was being abducted. He woke up significantly agitated and had an altercation with staff. No complaints currently.) Objective Vital Signs: Vital Signs - 24 hr 12/19/21 12/20/21 16:00 06:14 Temperature 36.5 C 36.2 C L Heart Rate [ 94 Brachial] Heart Rate [ 82 Radial] Respiratory 16 18 Rate Blood Pressure 117/80 [Left Brachial artery] Blood Pressure 121/84 H [Right Brachial artery] O2 Saturation 100 97 Oxygen O2 Source Room air I&O (Last 24 Hrs): Intake and Output Totals x24h 12/18/21 12/19/21 12/20/21 23:59 23:59 23:59 Intake Total 2510 2106 240 Output Total 150 Balance 2360 2106 240 Comments/Notes: General: Alert, awake, oriented x3. No acute distress. HEENT: Atraumatic, normocephalic, PERRLA, EOMI Neck: Supple, no JVD Neuro: Alert, oriented x3, no focal deficits Cardiovascular: Regular rate and rhythm, S1, S2, no murmurs. No edema Respiratory: CTABL, No respiratory distress. No wheezing, rhonchi, crackles. Abdomen: Normal bowel sounds, soft, nontender, nondistended, no splenomegaly or hepatomegaly. Extremities: No clubbing, No cyanosis, no edema. Skin: no rash, no decubitus ulcer. Dry and warm. - Results Results: Laboratory Results WBC 3.4 x10^3/uL (4.8-10.8) L 12/12/21 08:07 RBC 4.17 10^6/uL (4.70-6.10) L 12/12/21 08:07 Hgb 13.2 g/dL (14.0-18.0) L 12/12/21 08:07 Hct 40.3 % (42.0-52.0) L 12/12/21 08:07 MCV 96.6 fL (80.0-94.0) H 12/12/21 08:07 MCH 31.7 pg (27.0-31.0) H 12/12/21 08:07 MCHC 32.8 g/dL (32.0-36.0) 12/12/21 08:07 RDW 13.7 % (12.0-15.0) 12/12/21 08:07 Plt Count 146 10^3/uL (130-450) 12/12/21 08:07 MPV 12.8 fL (7.4-11.4) H 12/12/21 08:07 Neut # (Auto) 1.5 10^3/uL (1.5-6.6) 12/12/21 08:07 Lymph # (Auto) 1.4 10^3/uL (1.5-3.5) L 12/12/21 08:07 [place] # (Auto) 0.4 10^3/uL (0.0-1.0) 12/12/21 08:07 Eos # (Auto) 0.1 10^3/uL (0.0-0.7) 12/12/21 08:07 Baso # (Auto) 0.1 10^3/uL (0.0-0.1) 12/12/21 08:07 Absolute Nucleated RBC 0.00 x10^3/uL 12/12/21 08:07 Nucleated RBC % 0.0 /100WBC 12/12/21 08:07 PT 15.1 secs (9.9-12.6) H 12/04/21 23:33 INR 1.4 (0.8-1.2) H 12/04/21 23:33 APTT 24.8 secs (24.9-33.3) L 12/03/21 18:20 Sodium 135 mmol/L (135-145) 12/12/21 08:07 Potassium 3.8 mmol/L (3.5-5.0) 12/12/21 08:07 Chloride 101 mmol/L (101-111) 12/12/21 08:07 Carbon Dioxide 24 mmol/L (21-32) 12/12/21 08:07 Anion Gap 10.0 (6-13) 12/12/21 08:07 BUN 19 mg/dL (6-20) 12/12/21 08:07 Creatinine 0.7 mg/dL (0.6-1.2) 12/12/21 08:07 Estimated GFR (MDRD) 114 (>89) 12/12/21 08:07 Glucose 121 mg/dL (70-100) H 12/12/21 08:07 Calcium 8.7 mg/dL (8.5-10.3) 12/12/21 08:07 Phosphorus 3.6 mg/dL (2.5-4.6) 12/06/21 07:04 Magnesium 2.0 mg/dL (1.7-2.8) 12/06/21 07:04 Total Bilirubin 0.5 mg/dL (0.2-1.0) 12/12/21 08:07 Direct Bilirubin < 0.1 mg/dL (0.1-0.5) L 12/09/21 07:55 AST 149 IU/L (10-42) H 12/12/21 08:07 ALT 254 IU/L (10-60) H 12/12/21 08:07 Alkaline Phosphatase 80 IU/L (42-121) 12/12/21 08:07 Ammonia 12.5 umol/L (7-35) 12/08/21 07:54 Total Protein 7.1 g/dL (6.7-8.2) 12/12/21 08:07 Albumin 3.7 g/dL (3.2-5.5) 12/12/21 08:07 Globulin 3.4 g/dL (2.1-4.2) 12/12/21 08:07 Albumin/Globulin Ratio 1.1 (1.0-2.2) 12/12/21 08:07 Lipase 28 U/L (22-51) 12/06/21 07:04 Whole Bld Vitamin B1 TNP 12/04/21 16:52 TSH 1.25 uIU/mL (0.34-5.60) 12/03/21 18:20 Urine Color YELLOW 12/03/21 18:26 Urine Clarity CLEAR (CLEAR) 12/03/21 18:26 Urine pH 6.5 PH (5.0-7.5) 12/03/21 18:26 Ur Specific [place] 1.020 (1.002-1.030) 12/03/21 18:26 Urine Protein NEGATIVE mg/dL (NEGATIVE) 12/03/21 18:26 Urine Glucose (UA) NEGATIVE mg/dL (NEGATIVE) 12/03/21 18:26 Urine Ketones NEGATIVE mg/dL (NEGATIVE) 12/03/21 18:26 Urine Occult Blood NEGATIVE (NEGATIVE) 12/03/21 18:26 Urine Nitrite NEGATIVE (NEGATIVE) 12/03/21 18:26 Urine Bilirubin NEGATIVE (NEGATIVE) 12/03/21 18:26 Urine Urobilinogen 0.2 (NORMAL) E.U./dL (NORMAL) 12/03/21 18:26 Ur Leukocyte Esterase NEGATIVE (NEGATIVE) 12/03/21 18:26 Ur Microscopic Review NOT INDICATED 12/03/21 18:26 Urine Culture Comments NOT INDICATED 12/03/21 18:26 Nasal Adenovirus (PCR) NOT DETECTED 12/03/21 18:10 Nasal B. parapertussis DNA (PCR) NOT DETECTED 12/03/21 18:10 Nasal Coronavir 229E PCR NOT DETECTED 12/03/21 18:10 Nasal Coronavir HKU1 PCR NOT DETECTED 12/03/21 18:10 Nasal Coronavir NL63 PCR NOT DETECTED 12/03/21 18:10 Nasal Coronavir OC43 PCR NOT DETECTED 12/03/21 18:10 Nasal Enterovir/Rhinovir PCR NOT DETECTED 12/03/21 18:10 Nasal Influenza B PCR NOT DETECTED 12/03/21 18:10 Nasal Influenza A PCR NOT DETECTED 12/03/21 18:10 Nasal Parainfluen 1 PCR NOT DETECTED 12/03/21 18:10 Nasal Parainfluen 2 PCR NOT DETECTED 12/03/21 18:10 Nasal Parainfluen 3 PCR NOT DETECTED 12/03/21 18:10 Nasal Parainfluen 4 PCR NOT DETECTED 12/03/21 18:10 Nasal RSV (PCR) NOT DETECTED 12/03/21 18:10 Nasal B.pertussis DNA PCR NOT DETECTED 12/03/21 18:10 Nasal C.pneumoniae (PCR) NOT DETECTED 12/03/21 18:10 Juan Daniel Human Metapneumo PCR NOT DETECTED 12/03/21 18:10 Nasal M.pneumoniae (PCR) NOT DETECTED 12/03/21 18:10 Nasal SARS-CoV-2 (PCR) DETECTED A 12/03/21 18:10 Salicylates < 6.0 mg/dL 12/03/21 18:20 Urine Opiates Screen NEGATIVE (NEGATIVE) 12/03/21 18:26 Ur Oxycodone Screen NEGATIVE (NEGATIVE) 12/03/21 18:26 Urine Methadone Screen NEGATIVE (NEGATIVE) 12/03/21 18:26 Ur Propoxyphene Screen NEGATIVE (NEGATIVE) 12/03/21 18:26 Acetaminophen < 10 ug/mL (10-30) L 12/03/21 18:20 Ur Barbiturates Screen NEGATIVE (NEGATIVE) 12/03/21 18:26 Ur Tricyclics Screen NEGATIVE (NEGATIVE) 12/03/21 18:26 Ur Phencyclidine Scrn NEGATIVE (NEGATIVE) 12/03/21 18:26 Ur Amphetamine Screen NEGATIVE (NEGATIVE) 12/03/21 18:26 U Methamphetamines Scrn NEGATIVE (NEGATIVE) 12/03/21 18:26 U Benzodiazepines Scrn POSITIVE (NEGATIVE) H 12/03/21 18:26 Urine Cocaine Screen NEGATIVE (NEGATIVE) 12/03/21 18:26 U Cannabinoids Screen NEGATIVE (NEGATIVE) 12/03/21 18:26 Ethyl Alcohol < 5.0 mg/dL 12/03/21 18:20 Sepsis Event Note (H) - Evaluation Current Stage of Sepsis: Ruled out ABX Reporting Has patient been on IV antibiotics over the past 48 hours?: No
[2021-12-20] MEDS: MAGNESIUM OXIDE 400 MG TABLET PO SCH (10:05)
[2021-12-20] MEDS: MULTIVITAMIN TABLET PO SCH (10:05)
[2021-12-20] MEDS: THIAMINE 100 MG TABLET PO SCH (10:05)
[2021-12-20] MEDS: haloperidoL 1 MG TABLET PO SCH (10:05)
[2021-12-20] MEDS: HEPARIN 5,000 UNIT/ML VIAL SUBQ SCH ×2 (10:05→20:26)
[2021-12-20] MEDS: polyethylene glycoL 3350 17 GM PACKET PO SCH (10:08)
[2021-12-20] MEDS: NICOTINE 14 MG PATCH TOP SCH (10:09)
[2021-12-20 20:17] LABS: B. PARAPERTUSSIS- RESP PCR PAN NOT DETECTED; B. PERTUSSIS- RESP PCR PANEL NOT DETECTED; C. PNEUMONIAE- RESP PCR PANEL NOT DETECTED; CORONAVIRUS 229E-RESP PCR NOT DETECTED; CORONAVIRUS HKU1-RESP PCR NOT DETECTED; CORONAVIRUS NL63-RESP PCR NOT DETECTED; CORONAVIRUS OC43-RESP PCR NOT DETECTED; HUMAN METAPNEUMOVIRUS NOT DETECTED; INFLUENZA A- RESP PCR PANEL NOT DETECTED; INFLUENZA B - RESP PCR PANEL NOT DETECTED; M. PNEUMONIAE- RESP PCR PANEL NOT DETECTED; PARAINFLUENZA VIRUS 1 NOT DETECTED; PARAINFLUENZA VIRUS 2 NOT DETECTED; PARAINFLUENZA VIRUS 3 NOT DETECTED; PARAINFLUENZA VIRUS 4 NOT DETECTED; RHINOVIRUS/ENTEROVIRUS NOT DETECTED; RSV- RESP PCR PANEL NOT DETECTED
[2021-12-20 20:19] LABS: SARS-CoV-2 -RESP PCR PANEL DETECTED
[2021-12-20] MEDS: QUEtiapine 25 MG TABLET PO SCH (20:23)
[2021-12-20] MEDS: chlordiazePOXIDE 5 MG CAPSULE PO SCH (20:23)
[2021-12-20] MEDS: OLANZapine ODT 5 MG TABLET TL SCH (20:24)
--- NOTE | 2021-12-21 07:21 | PROVIDER PROGRESS NOTE ---
Assessment/Plan - Problem List (1) Metabolic encephalopathy Assessment/Plan: Patient appears to be functioning normally. No new incidents overnight. (2) Wernicke-Korsakoff syndrome (alcoholic) Assessment/Plan: Patient has history of chronic alcohol abuse. He had a formal evaluation by telepsych on December 07 06/27/2022. He cannot make decisions for himself. He needs a guardian and will also need permanent placement. Daughter is not able to to accommodate the patient at her house due to behavioral disturbances on his part and she has a little child at home. Continue vitamin B1 100 mg p.o. daily. (3) Alcohol abuse Assessment/Plan: Patient has not had any alcoholic beverage throughout this time in the hospital. (4) COVID-19 Assessment/Plan: This was diagnosed on 01/03/2022. Patient is currently asymptomatic and breathing comfortably on room air Repeat Covid test on 12/20/2021 was positive. (5) Homeless single person Assessment/Plan: Social work helping to facilitate placement. This has been particularly difficult due to some behavioral problems. - Current Meds Current Meds: Current Medications Generic Name Dose Route Start Last Admin Trade Name Freq PRN Reason Stop Dose Admin Acetaminophen 650 mg 12/04/21 21:17 12/12/21 08:32 Acetaminophen 325 Mg Tablet PO 650 mg Q4HR PRN Administration Pain 1 to 4 Chlordiazepoxide HCl 5 mg 12/18/21 21:00 12/20/21 20:23 Chlordiazepoxide 5 Mg Capsule PO 5 mg HS MARY Administration Haloperidol 1 mg 12/07/21 15:48 12/14/21 16:33 Haloperidol 5 Mg/Ml Vial IVP 1 mg Q6H PRN Administration Agitation Haloperidol 2 mg 12/19/21 21:00 12/20/21 10:05 Haloperidol 1 Mg Tablet PO 2 mg DAILY MARY Administration Heparin Sodium (Porcine) 5,000 unit 12/05/21 09:00 12/20/21 20:26 Heparin 5,000 Unit/Ml Vial SUBQ 5,000 unit BID MARY Administration Sodium Chloride 250 mls @ 20 mls/hr 12/05/21 14:51 12/05/21 23:05 Normal Saline 0.9% IV Infused Q24H PRN Infusion TKO RATE Lorazepam 1 mg 12/11/21 12:04 12/19/21 23:45 Lorazepam 2 Mg/Ml Vial IVP 1 mg Q4H PRN Administration Agitation Magnesium Oxide 400 mg 12/05/21 09:00 12/20/21 10:05 Magnesium Oxide 400 Mg Tablet PO 400 mg DAILY MARY Administration Multivitamins 1 tab 12/05/21 09:00 12/20/21 10:05 Multivitamin Tablet PO 1 tab DAILY MARY Administration Nicotine 1 patch 12/12/21 01:01 12/20/21 10:09 Nicotine 14 Mg Patch TOP 1 patch DAILY MARY Administration Olanzapine 5 mg 12/07/21 21:00 12/20/21 20:24 Olanzapine Odt 5 Mg Tablet TL 5 mg HS MARY Administration Polyethylene Glycol 17 gm 12/09/21 14:00 12/20/21 10:08 Polyethylene Glycol 3350 17 Gm Packet PO Not Given DAILY MARY Quetiapine Fumarate 50 mg 12/10/21 21:00 12/20/21 20:23 Quetiapine 25 Mg Tablet PO 50 mg QPM MARY Administration Sodium Chloride 10 ml 12/04/21 21:17 12/18/21 20:03 Sodium Chloride Flush 0.9% 10 Ml Syringe IVP 10 ml PRN PRN Administration NEEDED PER PROVIDER ORDERS Sodium Chloride 10 ml 12/05/21 01:00 12/20/21 17:33 Sodium Chloride Flush 0.9% 10 Ml Syringe IVP 10 ml 0100,0900,1700 MARY Administration Thiamine HCl 100 mg 12/04/21 09:00 12/20/21 10:05 Thiamine 100 Mg Tablet PO 100 mg DAILY MARY Administration - Lab Result Fish Bone Diagrams: 12/12/21 08:07 12/12/21 08:07 Subjective - Subjective Patient Reports: Other (Patient was awake, alert and oriented x3 at time of visit. He was ambulating with no difficulties around his room.) Objective Vital Signs: Vital Signs - 24 hr 12/20/21 16:00 Temperature 36.8 C Heart Rate [ 84 Brachial] Respiratory 18 Rate Blood Pressure 122/92 H [Right Brachial artery] O2 Saturation 99 Oxygen O2 Source Room air I&O (Last 24 Hrs): Intake and Output Totals x24h 12/19/21 12/20/21 12/21/21 23:59 23:59 23:59 Intake Total 2106 1540 240 Balance 2106 1540 240 Comments/Notes: General: Alert, awake, oriented x3. No acute distress. HEENT: Atraumatic, normocephalic, PERRLA, EOMI Neck: Supple, no JVD Neuro: Alert, oriented x3, no focal deficits Cardiovascular: Regular rate and rhythm, S1, S2, no murmurs. No edema Respiratory: CTABL, No respiratory distress. No wheezing, rhonchi, crackles. Abdomen: Normal bowel sounds, soft, nontender, nondistended, no splenomegaly or hepatomegaly. Extremities: No clubbing, No cyanosis, no edema. Skin: no rash, no decubitus ulcer. Dry and warm. - Results Results: Laboratory Results WBC 3.4 x10^3/uL (4.8-10.8) L 12/12/21 08:07 RBC 4.17 10^6/uL (4.70-6.10) L 12/12/21 08:07 Hgb 13.2 g/dL (14.0-18.0) L 12/12/21 08:07 Hct 40.3 % (42.0-52.0) L 12/12/21 08:07 MCV 96.6 fL (80.0-94.0) H 12/12/21 08:07 MCH 31.7 pg (27.0-31.0) H 12/12/21 08:07 MCHC 32.8 g/dL (32.0-36.0) 12/12/21 08:07 RDW 13.7 % (12.0-15.0) 12/12/21 08:07 Plt Count 146 10^3/uL (130-450) 12/12/21 08:07 MPV 12.8 fL (7.4-11.4) H 12/12/21 08:07 Neut # (Auto) 1.5 10^3/uL (1.5-6.6) 12/12/21 08:07 Lymph # (Auto) 1.4 10^3/uL (1.5-3.5) L 12/12/21 08:07 [place] # (Auto) 0.4 10^3/uL (0.0-1.0) 12/12/21 08:07 Eos # (Auto) 0.1 10^3/uL (0.0-0.7) 12/12/21 08:07 Baso # (Auto) 0.1 10^3/uL (0.0-0.1) 12/12/21 08:07 Absolute Nucleated RBC 0.00 x10^3/uL 12/12/21 08:07 Nucleated RBC % 0.0 /100WBC 12/12/21 08:07 PT 15.1 secs (9.9-12.6) H 12/04/21 23:33 INR 1.4 (0.8-1.2) H 12/04/21 23:33 APTT 24.8 secs (24.9-33.3) L 12/03/21 18:20 Sodium 135 mmol/L (135-145) 12/12/21 08:07 Potassium 3.8 mmol/L (3.5-5.0) 12/12/21 08:07 Chloride 101 mmol/L (101-111) 12/12/21 08:07 Carbon Dioxide 24 mmol/L (21-32) 12/12/21 08:07 Anion Gap 10.0 (6-13) 12/12/21 08:07 BUN 19 mg/dL (6-20) 12/12/21 08:07 Creatinine 0.7 mg/dL (0.6-1.2) 12/12/21 08:07 Estimated GFR (MDRD) 114 (>89) 12/12/21 08:07 Glucose 121 mg/dL (70-100) H 12/12/21 08:07 Calcium 8.7 mg/dL (8.5-10.3) 12/12/21 08:07 Phosphorus 3.6 mg/dL (2.5-4.6) 12/06/21 07:04 Magnesium 2.0 mg/dL (1.7-2.8) 12/06/21 07:04 Total Bilirubin 0.5 mg/dL (0.2-1.0) 12/12/21 08:07 Direct Bilirubin < 0.1 mg/dL (0.1-0.5) L 12/09/21 07:55 AST 149 IU/L (10-42) H 12/12/21 08:07 ALT 254 IU/L (10-60) H 12/12/21 08:07 Alkaline Phosphatase 80 IU/L (42-121) 12/12/21 08:07 Ammonia 12.5 umol/L (7-35) 12/08/21 07:54 Total Protein 7.1 g/dL (6.7-8.2) 12/12/21 08:07 Albumin 3.7 g/dL (3.2-5.5) 12/12/21 08:07 Globulin 3.4 g/dL (2.1-4.2) 12/12/21 08:07 Albumin/Globulin Ratio 1.1 (1.0-2.2) 12/12/21 08:07 Lipase 28 U/L (22-51) 12/06/21 07:04 Whole Bld Vitamin B1 TNP 12/04/21 16:52 TSH 1.25 uIU/mL (0.34-5.60) 12/03/21 18:20 Urine Color YELLOW 12/03/21 18:26 Urine Clarity CLEAR (CLEAR) 12/03/21 18:26 Urine pH 6.5 PH (5.0-7.5) 12/03/21 18:26 Ur Specific [place] 1.020 (1.002-1.030) 12/03/21 18:26 Urine Protein NEGATIVE mg/dL (NEGATIVE) 12/03/21 18:26 Urine Glucose (UA) NEGATIVE mg/dL (NEGATIVE) 12/03/21 18:26 Urine Ketones NEGATIVE mg/dL (NEGATIVE) 12/03/21 18:26 Urine Occult Blood NEGATIVE (NEGATIVE) 12/03/21 18:26 Urine Nitrite NEGATIVE (NEGATIVE) 12/03/21 18:26 Urine Bilirubin NEGATIVE (NEGATIVE) 12/03/21 18:26 Urine Urobilinogen 0.2 (NORMAL) E.U./dL (NORMAL) 12/03/21 18:26 Ur Leukocyte Esterase NEGATIVE (NEGATIVE) 12/03/21 18:26 Ur Microscopic Review NOT INDICATED 12/03/21 18:26 Urine Culture Comments NOT INDICATED 12/03/21 18:26 Nasal Adenovirus (PCR) NOT DETECTED 12/20/21 19:10 Nasal B. parapertussis DNA (PCR) NOT DETECTED 12/20/21 19:10 Nasal Coronavir 229E PCR NOT DETECTED 12/20/21 19:10 Nasal Coronavir HKU1 PCR NOT DETECTED 12/20/21 19:10 Nasal Coronavir NL63 PCR NOT DETECTED 12/20/21 19:10 Nasal Coronavir OC43 PCR NOT DETECTED 12/20/21 19:10 Nasal Enterovir/Rhinovir PCR NOT DETECTED 12/20/21 19:10 Nasal Influenza B PCR NOT DETECTED 12/20/21 19:10 Nasal Influenza A PCR NOT DETECTED 12/20/21 19:10 Nasal Parainfluen 1 PCR NOT DETECTED 12/20/21 19:10 Nasal Parainfluen 2 PCR NOT DETECTED 12/20/21 19:10 Nasal Parainfluen 3 PCR NOT DETECTED 12/20/21 19:10 Nasal Parainfluen 4 PCR NOT DETECTED 12/20/21 19:10 Nasal RSV (PCR) NOT DETECTED 12/20/21 19:10 Nasal B.pertussis DNA PCR NOT DETECTED 12/20/21 19:10 Nasal C.pneumoniae (PCR) NOT DETECTED 12/20/21 19:10 [place] Human Metapneumo PCR NOT DETECTED 12/20/21 19:10 Nasal M.pneumoniae (PCR) NOT DETECTED 12/20/21 19:10 Nasal SARS-CoV-2 (PCR) DETECTED A 12/20/21 19:10 Salicylates < 6.0 mg/dL 12/03/21 18:20 Urine Opiates Screen NEGATIVE (NEGATIVE) 12/03/21 18:26 Ur Oxycodone Screen NEGATIVE (NEGATIVE) 12/03/21 18:26 Urine Methadone Screen NEGATIVE (NEGATIVE) 12/03/21 18:26 Ur Propoxyphene Screen NEGATIVE (NEGATIVE) 12/03/21 18:26 Acetaminophen < 10 ug/mL (10-30) L 12/03/21 18:20 Ur Barbiturates Screen NEGATIVE (NEGATIVE) 12/03/21 18:26 Ur Tricyclics Screen NEGATIVE (NEGATIVE) 12/03/21 18:26 Ur Phencyclidine Scrn NEGATIVE (NEGATIVE) 12/03/21 18:26 Ur Amphetamine Screen NEGATIVE (NEGATIVE) 12/03/21 18:26 U Methamphetamines Scrn NEGATIVE (NEGATIVE) 12/03/21 18:26 U Benzodiazepines Scrn POSITIVE (NEGATIVE) H 12/03/21 18:26 Urine Cocaine Screen NEGATIVE (NEGATIVE) 12/03/21 18:26 U Cannabinoids Screen NEGATIVE (NEGATIVE) 12/03/21 18:26 Ethyl Alcohol < 5.0 mg/dL 12/03/21 18:20 Sepsis Event Note (H) - Evaluation Current Stage of Sepsis: Ruled out ABX Reporting Has patient been on IV antibiotics over the past 48 hours?: No
[2021-12-21] MEDS: MULTIVITAMIN TABLET PO SCH (08:08)
[2021-12-21] MEDS: THIAMINE 100 MG TABLET PO SCH (08:08)
[2021-12-21] MEDS: MAGNESIUM OXIDE 400 MG TABLET PO SCH (08:08)
[2021-12-21] MEDS: haloperidoL 1 MG TABLET PO SCH (08:08)
[2021-12-21] MEDS: HEPARIN 5,000 UNIT/ML VIAL SUBQ SCH (08:09)
[2021-12-21] MEDS: NICOTINE 14 MG PATCH TOP SCH (08:09)
[2021-12-21] MEDS: polyethylene glycoL 3350 17 GM PACKET PO SCH (08:14)
[2021-12-21] MEDS: SODIUM CHLORIDE FLUSH 0.9% 10 ML SYRINGE IVP SCH ×3 (12:11→15:43)
[2021-12-21] MEDS: QUEtiapine 25 MG TABLET PO SCH (20:37)
[2021-12-21] MEDS: OLANZapine ODT 5 MG TABLET TL SCH (20:37)
[2021-12-21] MEDS: chlordiazePOXIDE 5 MG CAPSULE PO SCH (20:37)
[2021-12-22] MEDS: SODIUM CHLORIDE FLUSH 0.9% 10 ML SYRINGE IVP SCH ×3 (04:35→17:51)
[2021-12-22] MEDS ORDERED: DOCUSATE SODIUM 250 MG CAPSULE PO PRN (07:23)
[2021-12-22] MEDS ORDERED: SENNA 8.6 MG TABLET PO PRN (07:23)
--- NOTE | 2021-12-22 07:52 | PROVIDER PROGRESS NOTE ---
Assessment/Plan - Problem List (1) Metabolic encephalopathy Assessment/Plan: Patient appears to be functioning normally. No new incidents overnight. (2) Wernicke-Korsakoff syndrome (alcoholic) Assessment/Plan: Patient has history of chronic alcohol abuse. He had a formal evaluation by telepsych on December 07 06/27/2022. He cannot make decisions for himself. He n eeds a guardian and will also need permanent placement. Daughter is not able to to accommodate the patient at her house due to behavioral disturbances on his part and she has a little child at home. Continue vitamin B1 100 mg p.o. daily. (3) Alcohol abuse Assessment/Plan: Patient has not had any alcoholic beverage throughout this time in the hospital. (4) COVID-19 Assessment/Plan: This was diagnosed on 01/03/2022. Patient is currently asymptomatic and breathing comfortably on room air Repeat Covid test on 12/20/2021 was positive. (5) Homeless single person Assessment/Plan: Social work helping to facilitate placement. This has been particularly difficult due to some behavioral problems. - Current Meds Current Meds: Current Medications Generic Name Dose Route Start Last Admin Trade Name Freq PRN Reason Stop Dose Admin Acetaminophen 650 mg 12/04/21 21:17 12/12/21 08:32 Acetaminophen 325 Mg Tablet PO 650 mg Q4HR PRN Administration Pain 1 to 4 Chlordiazepoxide HCl 5 mg 12/18/21 21:00 12/21/21 20:37 Chlordiazepoxide 5 Mg Capsule PO 5 mg HS MARY Administration Haloperidol 1 mg 12/07/21 15:48 12/14/21 16:33 Haloperidol 5 Mg/Ml Vial IVP 1 mg Q6H PRN Administration Agitation Haloperidol 2 mg 12/19/21 21:00 12/21/21 08:08 Haloperidol 1 Mg Tablet PO 2 mg DAILY MARY Administration Sodium Chloride 250 mls @ 20 mls/hr 12/05/21 14:51 12/05/21 23:05 Normal Saline 0.9% IV Infused Q24H PRN Infusion TKO RATE Lorazepam 1 mg 12/11/21 12:04 12/19/21 23:45 Lorazepam 2 Mg/Ml Vial IVP 1 mg Q4H PRN Administration Agitation Magnesium Oxide 400 mg 12/05/21 09:00 12/21/21 08:08 Magnesium Oxide 400 Mg Tablet PO 400 mg DAILY MARY Administration Multivitamins 1 tab 12/05/21 09:00 12/21/21 08:08 Multivitamin Tablet PO 1 tab DAILY MARY Administration Nicotine 1 patch 12/12/21 01:01 12/21/21 08:09 Nicotine 14 Mg Patch TOP 1 patch DAILY MARY Administration Olanzapine 5 mg 12/07/21 21:00 12/21/21 20:37 Olanzapine Odt 5 Mg Tablet TL 5 mg HS MARY Administration Polyethylene Glycol 17 gm 12/09/21 14:00 12/21/21 08:14 Polyethylene Glycol 3350 17 Gm Packet PO Not Given DAILY MARY Quetiapine Fumarate 50 mg 12/10/21 21:00 12/21/21 20:37 Quetiapine 25 Mg Tablet PO 50 mg QPM MARY Administration Sodium Chloride 10 ml 12/04/21 21:17 12/18/21 20:03 Sodium Chloride Flush 0.9% 10 Ml Syringe IVP 10 ml PRN PRN Administration NEEDED PER PROVIDER ORDERS Sodium Chloride 10 ml 12/05/21 01:00 12/22/21 04:35 Sodium Chloride Flush 0.9% 10 Ml Syringe IVP 10 ml 0100,0900,1700 MARY Administration Thiamine HCl 100 mg 12/04/21 09:00 12/21/21 08:08 Thiamine 100 Mg Tablet PO 100 mg DAILY MARY Administration - Lab Result Fish Bone Diagrams: 12/12/21 08:07 12/12/21 08:07 Subjective - Subjective Patient Reports: Other (Patient was awake, alert and oriented x3 at time of visit. He was ambulating with no difficulties around his room.) Objective Vital Signs: Vital Signs - 24 hr 12/21/21 12/22/21 15:36 00:33 Temperature 36.7 C 36.4 C L Heart Rate [ 88 Brachial] Heart Rate [ 73 Radial] Respiratory 19 16 Rate Blood Pressure 123/80 124/77 [Right Brachial artery] O2 Saturation 97 94 Oxygen O2 Source Room air I&O (Last 24 Hrs): Intake and Output Totals x24h 12/20/21 12/21/21 12/22/21 23:59 23:59 23:59 Intake Total 1540 1896 0 Balance 1540 1896 0 Comments/Notes: General: Alert, awake, oriented x3. No acute distress. HEENT: Atraumatic, normocephalic, PERRLA, EOMI Neck: Supple, no JVD Neuro: Alert, oriented x3, no focal deficits Cardiovascular: Regular rate and rhythm, S1, S2, no murmurs. No edema Respiratory: CTABL, No respiratory distress. No wheezing, rhonchi, crackles. Abdomen: Normal bowel sounds, soft, nontender, nondistended, no splenomegaly or hepatomegaly. Extremities: No clubbing, No cyanosis, no edema. Skin: no rash, no decubitus ulcer. Dry and warm. - Results Results: Laboratory Results WBC 3.4 x10^3/uL (4.8-10.8) L 12/12/21 08:07 RBC 4.17 10^6/uL (4.70-6.10) L 12/12/21 08:07 Hgb 13.2 g/dL (14.0-18.0) L 12/12/21 08:07 Hct 40.3 % (42.0-52.0) L 12/12/21 08:07 MCV 96.6 fL (80.0-94.0) H 12/12/21 08:07 MCH 31.7 pg (27.0-31.0) H 12/12/21 08:07 MCHC 32.8 g/dL (32.0-36.0) 12/12/21 08:07 RDW 13.7 % (12.0-15.0) 12/12/21 08:07 Plt Count 146 10^3/uL (130-450) 12/12/21 08:07 MPV 12.8 fL (7.4-11.4) H 12/12/21 08:07 Neut # (Auto) 1.5 10^3/uL (1.5-6.6) 12/12/21 08:07 Lymph # (Auto) 1.4 10^3/uL (1.5-3.5) L 12/12/21 08:07 [place] # (Auto) 0.4 10^3/uL (0.0-1.0) 12/12/21 08:07 Eos # (Auto) 0.1 10^3/uL (0.0-0.7) 12/12/21 08:07 Baso # (Auto) 0.1 10^3/uL (0.0-0.1) 12/12/21 08:07 Absolute Nucleated RBC 0.00 x10^3/uL 12/12/21 08:07 Nucleated RBC % 0.0 /100WBC 12/12/21 08:07 PT 15.1 secs (9.9-12.6) H 12/04/21 23:33 INR 1.4 (0.8-1.2) H 12/04/21 23:33 APTT 24.8 secs (24.9-33.3) L 12/03/21 18:20 Sodium 135 mmol/L (135-145) 12/12/21 08:07 Potassium 3.8 mmol/L (3.5-5.0) 12/12/21 08:07 Chloride 101 mmol/L (101-111) 12/12/21 08:07 Carbon Dioxide 24 mmol/L (21-32) 12/12/21 08:07 Anion Gap 10.0 (6-13) 12/12/21 08:07 BUN 19 mg/dL (6-20) 12/12/21 08:07 Creatinine 0.7 mg/dL (0.6-1.2) 12/12/21 08:07 Estimated GFR (MDRD) 114 (>89) 12/12/21 08:07 Glucose 121 mg/dL (70-100) H 12/12/21 08:07 Calcium 8.7 mg/dL (8.5-10.3) 12/12/21 08:07 Phosphorus 3.6 mg/dL (2.5-4.6) 12/06/21 07:04 Magnesium 2.0 mg/dL (1.7-2.8) 12/06/21 07:04 Total Bilirubin 0.5 mg/dL (0.2-1.0) 12/12/21 08:07 Direct Bilirubin < 0.1 mg/dL (0.1-0.5) L 12/09/21 07:55 AST 149 IU/L (10-42) H 12/12/21 08:07 ALT 254 IU/L (10-60) H 12/12/21 08:07 Alkaline Phosphatase 80 IU/L (42-121) 12/12/21 08:07 Ammonia 12.5 umol/L (7-35) 12/08/21 07:54 Total Protein 7.1 g/dL (6.7-8.2) 12/12/21 08:07 Albumin 3.7 g/dL (3.2-5.5) 12/12/21 08:07 Globulin 3.4 g/dL (2.1-4.2) 12/12/21 08:07 Albumin/Globulin Ratio 1.1 (1.0-2.2) 12/12/21 08:07 Lipase 28 U/L (22-51) 12/06/21 07:04 Whole Bld Vitamin B1 TNP 12/04/21 16:52 TSH 1.25 uIU/mL (0.34-5.60) 12/03/21 18:20 Urine Color YELLOW 12/03/21 18:26 Urine Clarity CLEAR (CLEAR) 12/03/21 18:26 Urine pH 6.5 PH (5.0-7.5) 12/03/21 18:26 Ur Specific [place] 1.020 (1.002-1.030) 12/03/21 18:26 Urine Protein NEGATIVE mg/dL (NEGATIVE) 12/03/21 18:26 Urine Glucose (UA) NEGATIVE mg/dL (NEGATIVE) 12/03/21 18:26 Urine Ketones NEGATIVE mg/dL (NEGATIVE) 12/03/21 18:26 Urine Occult Blood NEGATIVE (NEGATIVE) 12/03/21 18:26 Urine Nitrite NEGATIVE (NEGATIVE) 12/03/21 18:26 Urine Bilirubin NEGATIVE (NEGATIVE) 12/03/21 18:26 Urine Urobilinogen 0.2 (NORMAL) E.U./dL (NORMAL) 12/03/21 18:26 Ur Leukocyte Esterase NEGATIVE (NEGATIVE) 12/03/21 18:26 Ur Microscopic Review NOT INDICATED 12/03/21 18:26 Urine Culture Comments NOT INDICATED 12/03/21 18:26 Nasal Adenovirus (PCR) NOT DETECTED 12/20/21 19:10 Nasal B. parapertussis DNA (PCR) NOT DETECTED 12/20/21 19:10 Nasal Coronavir 229E PCR NOT DETECTED 12/20/21 19:10 Nasal Coronavir HKU1 PCR NOT DETECTED 12/20/21 19:10 Nasal Coronavir NL63 PCR NOT DETECTED 12/20/21 19:10 Nasal Coronavir OC43 PCR NOT DETECTED 12/20/21 19:10 Nasal Enterovir/Rhinovir PCR NOT DETECTED 12/20/21 19:10 Nasal Influenza B PCR NOT DETECTED 12/20/21 19:10 Nasal Influenza A PCR NOT DETECTED 12/20/21 19:10 Nasal Parainfluen 1 PCR NOT DETECTED 12/20/21 19:10 Nasal Parainfluen 2 PCR NOT DETECTED 12/20/21 19:10 Nasal Parainfluen 3 PCR NOT DETECTED 12/20/21 19:10 Nasal Parainfluen 4 PCR NOT DETECTED 12/20/21 19:10 Nasal RSV (PCR) NOT DETECTED 12/20/21 19:10 Nasal B.pertussis DNA PCR NOT DETECTED 12/20/21 19:10 Nasal C.pneumoniae (PCR) NOT DETECTED 12/20/21 19:10 [place] Human Metapneumo PCR NOT DETECTED 12/20/21 19:10 Nasal M.pneumoniae (PCR) NOT DETECTED 12/20/21 19:10 Nasal SARS-CoV-2 (PCR) DETECTED A 12/20/21 19:10 Salicylates < 6.0 mg/dL 12/03/21 18:20 Urine Opiates Screen NEGATIVE (NEGATIVE) 12/03/21 18:26 Ur Oxycodone Screen NEGATIVE (NEGATIVE) 12/03/21 18:26 Urine Methadone Screen NEGATIVE (NEGATIVE) 12/03/21 18:26 Ur Propoxyphene Screen NEGATIVE (NEGATIVE) 12/03/21 18:26 Acetaminophen < 10 ug/mL (10-30) L 12/03/21 18:20 Ur Barbiturates Screen NEGATIVE (NEGATIVE) 12/03/21 18:26 Ur Tricyclics Screen NEGATIVE (NEGATIVE) 12/03/21 18:26 Ur Phencyclidine Scrn NEGATIVE (NEGATIVE) 12/03/21 18:26 Ur Amphetamine Screen NEGATIVE (NEGATIVE) 12/03/21 18:26 U Methamphetamines Scrn NEGATIVE (NEGATIVE) 12/03/21 18:26 U Benzodiazepines Scrn POSITIVE (NEGATIVE) H 12/03/21 18:26 Urine Cocaine Screen NEGATIVE (NEGATIVE) 12/03/21 18:26 U Cannabinoids Screen NEGATIVE (NEGATIVE) 12/03/21 18:26 Ethyl Alcohol < 5.0 mg/dL 12/03/21 18:20 Sepsis Event Note (H) - Evaluation Current Stage of Sepsis: Ruled out ABX Reporting Has patient been on IV antibiotics over the past 48 hours?: No
[2021-12-22] MEDS: MAGNESIUM OXIDE 400 MG TABLET PO SCH (08:04)
[2021-12-22] MEDS: haloperidoL 1 MG TABLET PO SCH (08:04)
[2021-12-22] MEDS: MULTIVITAMIN TABLET PO SCH (08:04)
[2021-12-22] MEDS: polyethylene glycoL 3350 17 GM PACKET PO SCH (08:04)
[2021-12-22] MEDS: THIAMINE 100 MG TABLET PO SCH (08:04)
[2021-12-22] MEDS: NICOTINE 14 MG PATCH TOP SCH (08:04)
[2021-12-22] MEDS: chlordiazePOXIDE 5 MG CAPSULE PO SCH (20:12)
[2021-12-22] MEDS: QUEtiapine 25 MG TABLET PO SCH (20:12)
[2021-12-22] MEDS: OLANZapine ODT 5 MG TABLET TL SCH (20:12)
[2021-12-23] MEDS: SODIUM CHLORIDE FLUSH 0.9% 10 ML SYRINGE IVP SCH ×3 (07:23→18:23)
--- NOTE | 2021-12-23 09:23 | PROVIDER PROGRESS NOTE ---
Assessment/Plan - Problem List (1) Metabolic encephalopathy Assessment/Plan: 12/23 Patient is comfortable resting in the bed and stable. pt is pending for placement. social media community manager was consulted for Disposition (2) Wernicke-Korsakoff syndrome (alcoholic) Assessment/Plan: pt is stable. continue on B1 PO daily. Patient has history of chronic alcohol abuse. He had a formal evaluation by telepsych on December 07 06/27/2022. He cannot make decisions for himself. He needs a guardian and will also need permanent placement. Daughter is not able to to accommodate the patient at her house due to behavioral disturbances on his part and she has a little child at home. (3) Alcohol abuse Patient has history of chronic alcohol abuse. Patient has not had any alcoholic beverage throughout this time in the hospital. stable and without acute alcohol withdrawal now. continue on B1 PO daily. (4) COVID-19 Assessment/Plan: Patient is currently asymptomatic and breathing comfortably on room air. This was diagnosed on 12/03/2021. Repeat Covid test on 12/20/2021 was positive. (5) Homeless single person Assessment/Plan: Social work helping to facilitate placement. This has been particularly difficult due to pt's social situation and his medical hx. - Current Meds Current Meds: Current Medications Generic Name Dose Route Start Last Admin Trade Name Lazaroq PRN Reason Stop Dose Admin Acetaminophen 650 mg 12/04/21 21:17 12/12/21 08:32 Acetaminophen 325 Mg Tablet PO 650 mg Q4HR PRN Administration Pain 1 to 4 Chlordiazepoxide HCl 5 mg 12/18/21 21:00 12/22/21 20:12 Chlordiazepoxide 5 Mg Capsule PO 5 mg HS MARY Administration Haloperidol 1 mg 12/07/21 15:48 12/14/21 16:33 Haloperidol 5 Mg/Ml Vial IVP 1 mg Q6H PRN Administration Agitation Haloperidol 2 mg 12/19/21 21:00 12/22/21 08:04 Haloperidol 1 Mg Tablet PO 2 mg DAILY MARY Administration Sodium Chloride 250 mls @ 20 mls/hr 12/05/21 14:51 12/05/21 23:05 Normal Saline 0.9% IV Infused Q24H PRN Infusion TKO RATE Lorazepam 1 mg 12/11/21 12:04 12/19/21 23:45 Lorazepam 2 Mg/Ml Vial IVP 1 mg Q4H PRN Administration Agitation Magnesium Oxide 400 mg 12/05/21 09:00 12/22/21 08:04 Magnesium Oxide 400 Mg Tablet PO 400 mg DAILY MARY Administration Multivitamins 1 tab 12/05/21 09:00 12/22/21 08:04 Multivitamin Tablet PO 1 tab DAILY MARY Administration Nicotine 1 patch 12/12/21 01:01 12/22/21 08:04 Nicotine 14 Mg Patch TOP 1 patch DAILY MARY Administration Olanzapine 5 mg 12/07/21 21:00 12/22/21 20:12 Olanzapine Odt 5 Mg Tablet TL 5 mg HS MARY Administration Polyethylene Glycol 17 gm 12/09/21 14:00 12/22/21 08:04 Polyethylene Glycol 3350 17 Gm Packet PO 17 gm DAILY MARY Administration Quetiapine Fumarate 50 mg 12/10/21 21:00 12/22/21 20:12 Quetiapine 25 Mg Tablet PO 50 mg QPM MARY Administration Sodium Chloride 10 ml 12/04/21 21:17 12/18/21 20:03 Sodium Chloride Flush 0.9% 10 Ml Syringe IVP 10 ml PRN PRN Administration NEEDED PER PROVIDER ORDERS Sodium Chloride 10 ml 12/05/21 01:00 12/23/21 07:23 Sodium Chloride Flush 0.9% 10 Ml Syringe IVP 10 ml 0100,0900,1700 MARY Administration Thiamine HCl 100 mg 12/04/21 09:00 12/22/21 08:04 Thiamine 100 Mg Tablet PO 100 mg DAILY MARY Administration - Lab Result Fish Bone Diagrams: 12/12/21 08:07 12/12/21 08:07 Subjective - Subjective Patient Reports: Resting Comfortably Objective Vital Signs: Vital Signs - 24 hr 12/22/21 12/23/21 12/23/21 16:00 05:44 07:42 Temperature 36.8 C 36.7 C 36.5 C Heart Rate [ 81 Brachial] Heart Rate [ 79 81 Radial] Respiratory 18 16 18 Rate Blood Pressure 124/82 H 124/101 H 121/81 H [Right Brachial artery] O2 Saturation 100 100 98 Oxygen O2 Source Room air I&O (Last 24 Hrs): Intake and Output Totals x24h 12/21/21 12/22/21 12/23/21 23:59 23:59 23:59 Intake Total 1896 1440 240 Balance 1896 1440 240 General: Alert, Cooperative, No acute distress HEENT: Atraumatic Neck: Supple Lymphatic: no adenopathy Neuro: Alert, Non Focal Cardiovascular: Regular rate, Normal S1, Normal S2 Respiratory: Chest non-tender, No respiratory distress Abdomen: Normal bowel sounds, Soft Extremities: Normal pulses - Results Results: Laboratory Results WBC 3.4 x10^3/uL (4.8-10.8) L 12/12/21 08:07 RBC 4.17 10^6/uL (4.70-6.10) L 12/12/21 08:07 Hgb 13.2 g/dL (14.0-18.0) L 12/12/21 08:07 Hct 40.3 % (42.0-52.0) L 12/12/21 08:07 MCV 96.6 fL (80.0-94.0) H 12/12/21 08:07 MCH 31.7 pg (27.0-31.0) H 12/12/21 08:07 MCHC 32.8 g/dL (32.0-36.0) 12/12/21 08:07 RDW 13.7 % (12.0-15.0) 12/12/21 08:07 Plt Count 146 10^3/uL (130-450) 12/12/21 08:07 MPV 12.8 fL (7.4-11.4) H 12/12/21 08:07 Neut # (Auto) 1.5 10^3/uL (1.5-6.6) 12/12/21 08:07 Lymph # (Auto) 1.4 10^3/uL (1.5-3.5) L 12/12/21 08:07 [place] # (Auto) 0.4 10^3/uL (0.0-1.0) 12/12/21 08:07 Eos # (Auto) 0.1 10^3/uL (0.0-0.7) 12/12/21 08:07 Baso # (Auto) 0.1 10^3/uL (0.0-0.1) 12/12/21 08:07 Absolute Nucleated RBC 0.00 x10^3/uL 12/12/21 08:07 Nucleated RBC % 0.0 /100WBC 12/12/21 08:07 PT 15.1 secs (9.9-12.6) H 12/04/21 23:33 INR 1.4 (0.8-1.2) H 12/04/21 23:33 APTT 24.8 secs (24.9-33.3) L 12/03/21 18:20 Sodium 135 mmol/L (135-145) 12/12/21 08:07 Potassium 3.8 mmol/L (3.5-5.0) 12/12/21 08:07 Chloride 101 mmol/L (101-111) 12/12/21 08:07 Carbon Dioxide 24 mmol/L (21-32) 12/12/21 08:07 Anion Gap 10.0 (6-13) 12/12/21 08:07 BUN 19 mg/dL (6-20) 12/12/21 08:07 Creatinine 0.7 mg/dL (0.6-1.2) 12/12/21 08:07 Estimated GFR (MDRD) 114 (>89) 12/12/21 08:07 Glucose 121 mg/dL (70-100) H 12/12/21 08:07 Calcium 8.7 mg/dL (8.5-10.3) 12/12/21 08:07 Phosphorus 3.6 mg/dL (2.5-4.6) 12/06/21 07:04 Magnesium 2.0 mg/dL (1.7-2.8) 12/06/21 07:04 Total Bilirubin 0.5 mg/dL (0.2-1.0) 12/12/21 08:07 Direct Bilirubin < 0.1 mg/dL (0.1-0.5) L 12/09/21 07:55 AST 149 IU/L (10-42) H 12/12/21 08:07 ALT 254 IU/L (10-60) H 12/12/21 08:07 Alkaline Phosphatase 80 IU/L (42-121) 12/12/21 08:07 Ammonia 12.5 umol/L (7-35) 12/08/21 07:54 Total Protein 7.1 g/dL (6.7-8.2) 12/12/21 08:07 Albumin 3.7 g/dL (3.2-5.5) 12/12/21 08:07 Globulin 3.4 g/dL (2.1-4.2) 12/12/21 08:07 Albumin/Globulin Ratio 1.1 (1.0-2.2) 12/12/21 08:07 Lipase 28 U/L (22-51) 12/06/21 07:04 Whole Bld Vitamin B1 TNP 12/04/21 16:52 TSH 1.25 uIU/mL (0.34-5.60) 12/03/21 18:20 Urine Color YELLOW 12/03/21 18:26 Urine Clarity CLEAR (CLEAR) 12/03/21 18:26 Urine pH 6.5 PH (5.0-7.5) 12/03/21 18:26 Ur Specific [place] 1.020 (1.002-1.030) 12/03/21 18:26 Urine Protein NEGATIVE mg/dL (NEGATIVE) 12/03/21 18:26 Urine Glucose (UA) NEGATIVE mg/dL (NEGATIVE) 12/03/21 18:26 Urine Ketones NEGATIVE mg/dL (NEGATIVE) 12/03/21 18:26 Urine Occult Blood NEGATIVE (NEGATIVE) 12/03/21 18:26 Urine Nitrite NEGATIVE (NEGATIVE) 12/03/21 18:26 Urine Bilirubin NEGATIVE (NEGATIVE) 12/03/21 18:26 Urine Urobilinogen 0.2 (NORMAL) E.U./dL (NORMAL) 12/03/21 18:26 Ur Leukocyte Esterase NEGATIVE (NEGATIVE) 12/03/21 18:26 Ur Microscopic Review NOT INDICATED 12/03/21 18:26 Urine Culture Comments NOT INDICATED 12/03/21 18:26 Nasal Adenovirus (PCR) NOT DETECTED 12/20/21 19:10 Nasal B. parapertussis DNA (PCR) NOT DETECTED 12/20/21 19:10 Nasal Coronavir 229E PCR NOT DETECTED 12/20/21 19:10 Nasal Coronavir HKU1 PCR NOT DETECTED 12/20/21 19:10 Nasal Coronavir NL63 PCR NOT DETECTED 12/20/21 19:10 Nasal Coronavir OC43 PCR NOT DETECTED 12/20/21 19:10 Nasal Enterovir/Rhinovir PCR NOT DETECTED 12/20/21 19:10 Nasal Influenza B PCR NOT DETECTED 12/20/21 19:10 Nasal Influenza A PCR NOT DETECTED 12/20/21 19:10 Nasal Parainfluen 1 PCR NOT DETECTED 12/20/21 19:10 Nasal Parainfluen 2 PCR NOT DETECTED 12/20/21 19:10 Nasal Parainfluen 3 PCR NOT DETECTED 12/20/21 19:10 Nasal Parainfluen 4 PCR NOT DETECTED 12/20/21 19:10 Nasal RSV (PCR) NOT DETECTED 12/20/21 19:10 Nasal B.pertussis DNA PCR NOT DETECTED 12/20/21 19:10 Nasal C.pneumoniae (PCR) NOT DETECTED 12/20/21 19:10 Juan Daniel Human Metapneumo PCR NOT DETECTED 12/20/21 19:10 Nasal M.pneumoniae (PCR) NOT DETECTED 12/20/21 19:10 Nasal SARS-CoV-2 (PCR) DETECTED A 12/20/21 19:10 Salicylates < 6.0 mg/dL 12/03/21 18:20 Urine Opiates Screen NEGATIVE (NEGATIVE) 12/03/21 18:26 Ur Oxycodone Screen NEGATIVE (NEGATIVE) 12/03/21 18:26 Urine Methadone Screen NEGATIVE (NEGATIVE) 12/03/21 18:26 Ur Propoxyphene Screen NEGATIVE (NEGATIVE) 12/03/21 18:26 Acetaminophen < 10 ug/mL (10-30) L 12/03/21 18:20 Ur Barbiturates Screen NEGATIVE (NEGATIVE) 12/03/21 18:26 Ur Tricyclics Screen NEGATIVE (NEGATIVE) 12/03/21 18:26 Ur Phencyclidine Scrn NEGATIVE (NEGATIVE) 12/03/21 18:26 Ur Amphetamine Screen NEGATIVE (NEGATIVE) 12/03/21 18:26 U Methamphetamines Scrn NEGATIVE (NEGATIVE) 12/03/21 18:26 U Benzodiazepines Scrn POSITIVE (NEGATIVE) H 12/03/21 18:26 Urine Cocaine Screen NEGATIVE (NEGATIVE) 12/03/21 18:26 U Cannabinoids Screen NEGATIVE (NEGATIVE) 12/03/21 18:26 Ethyl Alcohol < 5.0 mg/dL 12/03/21 18:20 Sepsis Event Note (H) - Evaluation Current Stage of Sepsis: Ruled out ABX Reporting Has patient been on IV antibiotics over the past 48 hours?: No Current Medications - Current Medications Current Medications: Active Medications Acetaminophen (Acetaminophen 325 Mg Tablet) 650 mg PO Q4HR PRN PRN Reason: Pain 1 to 4 Last Admin: 12/12/21 08:32 Dose: 650 mg Chlordiazepoxide HCl (Chlordiazepoxide 5 Mg Capsule) [address] [facility] Last Admin: 12/22/21 20:12 Dose: 5 mg Docusate Sodium (Docusate Sodium 250 Mg Capsule) 250 - 500 mg PO DAILY PRN PRN Reason: Constipation Haloperidol (Haloperidol 5 Mg/Ml Vial) 1 mg IVP Q6H PRN PRN Reason: Agitation Last Admin: 12/14/21 16:33 Dose: 1 mg Haloperidol (Haloperidol 1 Mg Tablet) [address] [facility] Last Admin: 12/22/21 08:04 Dose: 2 mg Sodium Chloride (Normal Saline 0.9%) 250 mls @ 20 mls/hr IV Q24H PRN PRN Reason: TKO RATE Last Infusion: 12/05/21 23:05 Dose: Infused Lorazepam (Lorazepam 2 Mg/Ml Vial) 1 mg IVP Q4H PRN PRN Reason: Agitation Last Admin: 12/19/21 23:45 Dose: 1 mg Magnesium Oxide (Magnesium Oxide 400 Mg Tablet) [address] [facility] Last Admin: 12/22/21 08:04 Dose: 400 mg Multivitamins (Multivitamin Tablet) [address] [facility] Last Admin: 12/22/21 08:04 Dose: 1 tab Nicotine (Nicotine 14 Mg Patch) [address] [facility] Last Admin: 12/22/21 08:04 Dose: 1 patch Olanzapine (Olanzapine Odt 5 Mg Tablet) [address] [facility] Last Admin: 12/22/21 20:12 Dose: 5 mg Ondansetron HCl (Ondansetron 4 Mg/2 Ml Vial) 4 mg IVP Q6HR PRN PRN Reason: Nausea / Vomiting Polyethylene Glycol (Polyethylene Glycol 3350 17 Gm Packet) [address] [facility] Last Admin: 12/22/21 08:04 Dose: 17 gm Quetiapine Fumarate (Quetiapine 25 Mg Tablet) [address] [facility] Last Admin: 12/22/21 20:12 Dose: 50 mg Senna (Senna 8.6 Mg Tablet) 8.6 - 17.2 mg PO DAILY PRN PRN Reason: Constipation Sodium Chloride (Sodium Chloride Flush 0.9% 10 Ml Syringe) 10 ml IVP PRN PRN PRN Reason: NEEDED PER PROVIDER ORDERS Last Admin: 12/18/21 20:03 Dose: 10 ml Sodium Chloride (Sodium Chloride Flush 0.9% 10 Ml Syringe) 10 ml IVP 0100,0900,1700 [facility] Last Admin: 12/23/21 07:23 Dose: 10 ml Thiamine HCl (Thiamine 100 Mg Tablet) [address] [facility] Last Admin: 12/22/21 08:04 Dose: 100 mg Magnesium Oxide [Mag Ox] 400 mg PO DAILY 12/01/21 Multivitamin [Theragran] 1 each PO DAILY 12/01/21
[2021-12-23] MEDS: MAGNESIUM OXIDE 400 MG TABLET PO SCH (09:31)
[2021-12-23] MEDS: THIAMINE 100 MG TABLET PO SCH (09:31)
[2021-12-23] MEDS: haloperidoL 1 MG TABLET PO SCH (09:31)
[2021-12-23] MEDS: MULTIVITAMIN TABLET PO SCH (09:31)
[2021-12-23] MEDS: polyethylene glycoL 3350 17 GM PACKET PO SCH (09:31)
[2021-12-23] MEDS: NICOTINE 14 MG PATCH TOP SCH (09:31)
[2021-12-23] MEDS: QUEtiapine 25 MG TABLET PO SCH (20:32)
[2021-12-23] MEDS: OLANZapine ODT 5 MG TABLET TL SCH (20:33)
[2021-12-23] MEDS: chlordiazePOXIDE 5 MG CAPSULE PO SCH (20:33)
[2021-12-24] MEDS: SODIUM CHLORIDE FLUSH 0.9% 10 ML SYRINGE IVP SCH ×3 (00:56→16:55)
[2021-12-24] MEDS: MAGNESIUM OXIDE 400 MG TABLET PO SCH (08:21)
[2021-12-24] MEDS: NICOTINE 14 MG PATCH TOP SCH (08:22)
[2021-12-24] MEDS: MULTIVITAMIN TABLET PO SCH (08:22)
[2021-12-24] MEDS: polyethylene glycoL 3350 17 GM PACKET PO SCH (08:22)
[2021-12-24] MEDS: THIAMINE 100 MG TABLET PO SCH (08:22)
[2021-12-24] MEDS: haloperidoL 1 MG TABLET PO SCH (09:00)
--- NOTE | 2021-12-24 10:19 | PROVIDER PROGRESS NOTE ---
Assessment/Plan - Problem List (1) Metabolic encephalopathy Assessment/Plan: 12/24 pt is stable and comfortable, he ate 100% his breakfast, pt is waiting for his guardianship and pending for placement. 12/23 Patient is comfortable resting in the bed and stable. pt is pending for placement. social service director was consulted for Disposition (2) Wernicke-Korsakoff syndrome (alcoholic) Assessment/Plan: pt is stable. continue on B1 PO daily. Patient has history of chronic alcohol abuse. He had a formal evaluation by telepsych on December 07 06/27/2022. He cannot make decisions for himself. He needs a guardian and will also need permanent placement. Daughter is not able to to accommodate the patient at her house due to behavioral disturbances on his part and she has a little child at home. (3) Alcohol abuse 12/24 pt's Librium is down to 5mg daily. since pt has no more withdrawal symptoms, we may d/c it on tomorrow. continue on B1 PO daily. Patient has history of chronic alcohol abuse. Patient has not had any alcoholic beverage throughout this time in the hospital. stable and without acute alcohol withdrawal now. continue on B1 PO daily. (4) COVID-19 Assessment/Plan: Patient is currently asymptomatic and breathing comfortably on room air. This was diagnosed on 12/03/2021 Repeat Covid test on 12/20/2021 was positive. (5) Homeless single person Assessment/Plan: Social work helping to facilitate placement. This has been particularly difficult due to pt's social situation and his medical hx. - Current Meds Current Meds: Current Medications Generic Name Dose Route Start Last Admin Trade Name Lazaroq PRN Reason Stop Dose Admin Acetaminophen 650 mg 12/04/21 21:17 12/12/21 08:32 Acetaminophen 325 Mg Tablet PO 650 mg Q4HR PRN Administration Pain 1 to 4 Chlordiazepoxide HCl 5 mg 12/18/21 21:00 12/23/21 20:33 Chlordiazepoxide 5 Mg Capsule PO 5 mg HS MARY Administration Haloperidol 1 mg 12/07/21 15:48 12/14/21 16:33 Haloperidol 5 Mg/Ml Vial IVP 1 mg Q6H PRN Administration Agitation Haloperidol 2 mg 12/19/21 21:00 12/24/21 09:00 Haloperidol 1 Mg Tablet PO 2 mg DAILY MARY Administration Sodium Chloride 250 mls @ 20 mls/hr 12/05/21 14:51 12/05/21 23:05 Normal Saline 0.9% IV Infused Q24H PRN Infusion TKO RATE Lorazepam 1 mg 12/11/21 12:04 12/19/21 23:45 Lorazepam 2 Mg/Ml Vial IVP 1 mg Q4H PRN Administration Agitation Magnesium Oxide 400 mg 12/05/21 09:00 12/24/21 08:21 Magnesium Oxide 400 Mg Tablet PO 400 mg DAILY MARY Administration Multivitamins 1 tab 12/05/21 09:00 12/24/21 08:22 Multivitamin Tablet PO 1 tab DAILY MARY Administration Nicotine 1 patch 12/12/21 01:01 12/24/21 08:22 Nicotine 14 Mg Patch TOP 1 patch DAILY MARY Administration Olanzapine 5 mg 12/07/21 21:00 12/23/21 20:33 Olanzapine Odt 5 Mg Tablet TL 5 mg HS MARY Administration Polyethylene Glycol 17 gm 12/09/21 14:00 12/24/21 08:22 Polyethylene Glycol 3350 17 Gm Packet PO 17 gm DAILY MARY Administration Quetiapine Fumarate 50 mg 12/10/21 21:00 12/23/21 20:32 Quetiapine 25 Mg Tablet PO 50 mg QPM MARY Administration Sodium Chloride 10 ml 12/04/21 21:17 12/18/21 20:03 Sodium Chloride Flush 0.9% 10 Ml Syringe IVP 10 ml PRN PRN Administration NEEDED PER PROVIDER ORDERS Sodium Chloride 10 ml 12/05/21 01:00 12/24/21 08:22 Sodium Chloride Flush 0.9% 10 Ml Syringe IVP 10 ml 0100,0900,1700 MARY Administration Thiamine HCl 100 mg 12/04/21 09:00 12/24/21 08:22 Thiamine 100 Mg Tablet PO 100 mg DAILY MARY Administration - Lab Result Fish Bone Diagrams: 12/12/21 08:07 12/12/21 08:07 Subjective - Subjective Patient Reports: Resting Comfortably Objective Vital Signs: Vital Signs - 24 hr 12/23/21 12/24/21 12/24/21 15:36 04:15 08:00 Temperature 36.2 C L 36.4 C L 36.3 C L Heart Rate [ 89 83 Brachial] Heart Rate [ 85 Radial] Respiratory 20 16 16 Rate Blood Pressure 115/78 112/75 118/80 [Right Brachial artery] O2 Saturation 98 95 96 Oxygen O2 Source Room air I&O (Last 24 Hrs): Intake and Output Totals x24h 12/22/21 12/23/21 12/24/21 23:59 23:59 23:59 Intake Total 1440 1230 980 Output Total 3 Balance 1440 1227 980 General: Alert, Cooperative, No acute distress HEENT: Atraumatic Neck: Supple Lymphatic: no adenopathy Neuro: Alert, Non Focal Cardiovascular: Regular rate, Normal S1, Normal S2 Respiratory: Chest non-tender, No respiratory distress Abdomen: Normal bowel sounds, Soft Extremities: Normal pulses - Results Results: Laboratory Results WBC 3.4 x10^3/uL (4.8-10.8) L 12/12/21 08:07 RBC 4.17 10^6/uL (4.70-6.10) L 12/12/21 08:07 Hgb 13.2 g/dL (14.0-18.0) L 12/12/21 08:07 Hct 40.3 % (42.0-52.0) L 12/12/21 08:07 MCV 96.6 fL (80.0-94.0) H 12/12/21 08:07 MCH 31.7 pg (27.0-31.0) H 12/12/21 08:07 MCHC 32.8 g/dL (32.0-36.0) 12/12/21 08:07 RDW 13.7 % (12.0-15.0) 12/12/21 08:07 Plt Count 146 10^3/uL (130-450) 12/12/21 08:07 MPV 12.8 fL (7.4-11.4) H 12/12/21 08:07 Neut # (Auto) 1.5 10^3/uL (1.5-6.6) 12/12/21 08:07 Lymph # (Auto) 1.4 10^3/uL (1.5-3.5) L 12/12/21 08:07 [place] # (Auto) 0.4 10^3/uL (0.0-1.0) 12/12/21 08:07 Eos # (Auto) 0.1 10^3/uL (0.0-0.7) 12/12/21 08:07 Baso # (Auto) 0.1 10^3/uL (0.0-0.1) 12/12/21 08:07 Absolute Nucleated RBC 0.00 x10^3/uL 12/12/21 08:07 Nucleated RBC % 0.0 /100WBC 12/12/21 08:07 PT 15.1 secs (9.9-12.6) H 12/04/21 23:33 INR 1.4 (0.8-1.2) H 12/04/21 23:33 APTT 24.8 secs (24.9-33.3) L 12/03/21 18:20 Sodium 135 mmol/L (135-145) 12/12/21 08:07 Potassium 3.8 mmol/L (3.5-5.0) 12/12/21 08:07 Chloride 101 mmol/L (101-111) 12/12/21 08:07 Carbon Dioxide 24 mmol/L (21-32) 12/12/21 08:07 Anion Gap 10.0 (6-13) 12/12/21 08:07 BUN 19 mg/dL (6-20) 12/12/21 08:07 Creatinine 0.7 mg/dL (0.6-1.2) 12/12/21 08:07 Estimated GFR (MDRD) 114 (>89) 12/12/21 08:07 Glucose 121 mg/dL (70-100) H 12/12/21 08:07 Calcium 8.7 mg/dL (8.5-10.3) 12/12/21 08:07 Phosphorus 3.6 mg/dL (2.5-4.6) 12/06/21 07:04 Magnesium 2.0 mg/dL (1.7-2.8) 12/06/21 07:04 Total Bilirubin 0.5 mg/dL (0.2-1.0) 12/12/21 08:07 Direct Bilirubin < 0.1 mg/dL (0.1-0.5) L 12/09/21 07:55 AST 149 IU/L (10-42) H 12/12/21 08:07 ALT 254 IU/L (10-60) H 12/12/21 08:07 Alkaline Phosphatase 80 IU/L (42-121) 12/12/21 08:07 Ammonia 12.5 umol/L (7-35) 12/08/21 07:54 Total Protein 7.1 g/dL (6.7-8.2) 12/12/21 08:07 Albumin 3.7 g/dL (3.2-5.5) 12/12/21 08:07 Globulin 3.4 g/dL (2.1-4.2) 12/12/21 08:07 Albumin/Globulin Ratio 1.1 (1.0-2.2) 12/12/21 08:07 Lipase 28 U/L (22-51) 12/06/21 07:04 Whole Bld Vitamin B1 TNP 12/04/21 16:52 TSH 1.25 uIU/mL (0.34-5.60) 12/03/21 18:20 Urine Color YELLOW 12/03/21 18:26 Urine Clarity CLEAR (CLEAR) 12/03/21 18:26 Urine pH 6.5 PH (5.0-7.5) 12/03/21 18:26 Ur Specific [place] 1.020 (1.002-1.030) 12/03/21 18:26 Urine Protein NEGATIVE mg/dL (NEGATIVE) 12/03/21 18:26 Urine Glucose (UA) NEGATIVE mg/dL (NEGATIVE) 12/03/21 18:26 Urine Ketones NEGATIVE mg/dL (NEGATIVE) 12/03/21 18:26 Urine Occult Blood NEGATIVE (NEGATIVE) 12/03/21 18:26 Urine Nitrite NEGATIVE (NEGATIVE) 12/03/21 18:26 Urine Bilirubin NEGATIVE (NEGATIVE) 12/03/21 18:26 Urine Urobilinogen 0.2 (NORMAL) E.U./dL (NORMAL) 12/03/21 18:26 Ur Leukocyte Esterase NEGATIVE (NEGATIVE) 12/03/21 18:26 Ur Microscopic Review NOT INDICATED 12/03/21 18:26 Urine Culture Comments NOT INDICATED 12/03/21 18:26 Nasal Adenovirus (PCR) NOT DETECTED 12/20/21 19:10 Nasal B. parapertussis DNA (PCR) NOT DETECTED 12/20/21 19:10 Nasal Coronavir 229E PCR NOT DETECTED 12/20/21 19:10 Nasal Coronavir HKU1 PCR NOT DETECTED 12/20/21 19:10 Nasal Coronavir NL63 PCR NOT DETECTED 12/20/21 19:10 Nasal Coronavir OC43 PCR NOT DETECTED 12/20/21 19:10 Nasal Enterovir/Rhinovir PCR NOT DETECTED 12/20/21 19:10 Nasal Influenza B PCR NOT DETECTED 12/20/21 19:10 Nasal Influenza A PCR NOT DETECTED 12/20/21 19:10 Nasal Parainfluen 1 PCR NOT DETECTED 12/20/21 19:10 Nasal Parainfluen 2 PCR NOT DETECTED 12/20/21 19:10 Nasal Parainfluen 3 PCR NOT DETECTED 12/20/21 19:10 Nasal Parainfluen 4 PCR NOT DETECTED 12/20/21 19:10 Nasal RSV (PCR) NOT DETECTED 12/20/21 19:10 Nasal B.pertussis DNA PCR NOT DETECTED 12/20/21 19:10 Nasal C.pneumoniae (PCR) NOT DETECTED 12/20/21 19:10 Juan Daniel Human Metapneumo PCR NOT DETECTED 12/20/21 19:10 Nasal M.pneumoniae (PCR) NOT DETECTED 12/20/21 19:10 Nasal SARS-CoV-2 (PCR) DETECTED A 12/20/21 19:10 Salicylates < 6.0 mg/dL 12/03/21 18:20 Urine Opiates Screen NEGATIVE (NEGATIVE) 12/03/21 18:26 Ur Oxycodone Screen NEGATIVE (NEGATIVE) 12/03/21 18:26 Urine Methadone Screen NEGATIVE (NEGATIVE) 12/03/21 18:26 Ur Propoxyphene Screen NEGATIVE (NEGATIVE) 12/03/21 18:26 Acetaminophen < 10 ug/mL (10-30) L 12/03/21 18:20 Ur Barbiturates Screen NEGATIVE (NEGATIVE) 12/03/21 18:26 Ur Tricyclics Screen NEGATIVE (NEGATIVE) 12/03/21 18:26 Ur Phencyclidine Scrn NEGATIVE (NEGATIVE) 12/03/21 18:26 Ur Amphetamine Screen NEGATIVE (NEGATIVE) 12/03/21 18:26 U Methamphetamines Scrn NEGATIVE (NEGATIVE) 12/03/21 18:26 U Benzodiazepines Scrn POSITIVE (NEGATIVE) H 12/03/21 18:26 Urine Cocaine Screen NEGATIVE (NEGATIVE) 12/03/21 18:26 U Cannabinoids Screen NEGATIVE (NEGATIVE) 12/03/21 18:26 Ethyl Alcohol < 5.0 mg/dL 12/03/21 18:20 Sepsis Event Note (H) - Evaluation Current Stage of Sepsis: Ruled out ABX Reporting Has patient been on IV antibiotics over the past 48 hours?: No Current Medications - Current Medications Current Medications: Active Medications Acetaminophen (Acetaminophen 325 Mg Tablet) 650 mg PO Q4HR PRN PRN Reason: Pain 1 to 4 Last Admin: 12/12/21 08:32 Dose: 650 mg Chlordiazepoxide HCl (Chlordiazepoxide 5 Mg Capsule) 5 mg PO HS [facility] Last Admin: 12/23/21 20:33 Dose: 5 mg Docusate Sodium (Docusate Sodium 250 Mg Capsule) 250 - 500 mg PO DAILY PRN PRN Reason: Constipation Haloperidol (Haloperidol 5 Mg/Ml Vial) 1 mg IVP Q6H PRN PRN Reason: Agitation Last Admin: 12/14/21 16:33 Dose: 1 mg Haloperidol (Haloperidol 1 Mg Tablet) 2 mg PO DAILY [facility] Last Admin: 12/24/21 09:00 Dose: 2 mg Sodium Chloride (Normal Saline 0.9%) 250 mls @ 20 mls/hr IV Q24H PRN PRN Reason: TKO RATE Last Infusion: 12/05/21 23:05 Dose: Infused Lorazepam (Lorazepam 2 Mg/Ml Vial) 1 mg IVP Q4H PRN PRN Reason: Agitation Last Admin: 12/19/21 23:45 Dose: 1 mg Magnesium Oxide (Magnesium Oxide 400 Mg Tablet) 400 mg PO DAILY [facility] Last Admin: 12/24/21 08:21 Dose: 400 mg Multivitamins (Multivitamin Tablet) 1 tab PO DAILY [facility] Last Admin: 12/24/21 08:22 Dose: 1 tab Nicotine (Nicotine 14 Mg Patch) 1 patch TOP DAILY [facility] Last Admin: 12/24/21 08:22 Dose: 1 patch Olanzapine (Olanzapine Odt 5 Mg Tablet) 5 mg TL HS [facility] Last Admin: 12/23/21 20:33 Dose: 5 mg Ondansetron HCl (Ondansetron 4 Mg/2 Ml Vial) 4 mg IVP Q6HR PRN PRN Reason: Nausea / Vomiting Polyethylene Glycol (Polyethylene Glycol 3350 17 Gm Packet) 17 gm PO DAILY [facility] Last Admin: 12/24/21 08:22 Dose: 17 gm Quetiapine Fumarate (Quetiapine 25 Mg Tablet) 50 mg PO QPM [facility] Last Admin: 12/23/21 20:32 Dose: 50 mg Senna (Senna 8.6 Mg Tablet) 8.6 - 17.2 mg PO DAILY PRN PRN Reason: Constipation Sodium Chloride (Sodium Chloride Flush 0.9% 10 Ml Syringe) 10 ml IVP PRN PRN PRN Reason: NEEDED PER PROVIDER ORDERS Last Admin: 12/18/21 20:03 Dose: 10 ml Sodium Chloride (Sodium Chloride Flush 0.9% 10 Ml Syringe) 10 ml IVP 0100,0900,1700 [facility] Last Admin: 12/24/21 08:22 Dose: 10 ml Thiamine HCl (Thiamine 100 Mg Tablet) 100 mg PO DAILY [facility] Last Admin: 12/24/21 08:22 Dose: 100 mg Magnesium Oxide [Mag Ox] 400 mg PO DAILY 12/01/21 Multivitamin [Theragran] 1 each PO DAILY 12/01/21
[2021-12-24] MEDS: chlordiazePOXIDE 5 MG CAPSULE PO SCH (21:11)
[2021-12-24] MEDS: QUEtiapine 25 MG TABLET PO SCH (21:11)
[2021-12-24] MEDS: OLANZapine ODT 5 MG TABLET TL SCH (21:11)
[2021-12-25] MEDS: SODIUM CHLORIDE FLUSH 0.9% 10 ML SYRINGE IVP SCH ×3 (01:30→17:23)
[2021-12-25] MEDS: MAGNESIUM OXIDE 400 MG TABLET PO SCH (08:18)
[2021-12-25] MEDS: THIAMINE 100 MG TABLET PO SCH (08:18)
[2021-12-25] MEDS: haloperidoL 1 MG TABLET PO SCH (08:18)
[2021-12-25] MEDS: polyethylene glycoL 3350 17 GM PACKET PO SCH (08:19)
[2021-12-25] MEDS: NICOTINE 14 MG PATCH TOP SCH (08:19)
[2021-12-25] MEDS: MULTIVITAMIN TABLET PO SCH (08:22)
--- NOTE | 2021-12-25 11:08 | PROVIDER PROGRESS NOTE ---
Assessment/Plan - Problem List (1) Metabolic encephalopathy Assessment/Plan: 12/25, pt is stable, no complaints. pt is waiting for his guardianship and pending for placement. 12/24 pt is stable and comfortable, he ate 100% his breakfast, pt is waiting for his guardianship and pending for placement. 12/23 Patient is comfortable resting in the bed and stable. pt is pending for placement. manager social work was consulted for Disposition (2) Wernicke-Korsakoff syndrome (alcoholic) Assessment/Plan: pt is stable. continue on B1 PO daily. Patient has history of chronic alcohol abuse. He had a formal evaluation by telepsych on December 07 06/27/2022. He cannot make decisions for himself. He needs a guardian and will also need permanent placement. Daughter is not able to to accommodate the patient at her house due to behavioral disturbances on his part and she has a little child at home. (3) Alcohol abuse 12/25 pt was Already in hospital for 21 days, patient does not present alcohol withdrawal any more, we will hold Librium for now. 12/24 pt's Librium is down to 5mg daily. since pt has no more withdrawal symptoms, we may d/c it on tomorrow. continue on B1 PO daily. Patient has history of chronic alcohol abuse. Patient has not had any alcoholic beverage throughout this time in the hospital. stable and without acute alcohol withdrawal now. continue on B1 PO daily. (4) COVID-19 Assessment/Plan: Patient is currently asymptomatic and breathing comfortably on room air. This was diagnosed on 12/03/2021 Repeat Covid test on 12/20/2021 was positive. (5) Homeless single person Assessment/Plan: Social work helping to facilitate placement. This has been particularly difficult due to pt's social situation and his medical hx. - Current Meds Current Meds: Current Medications Generic Name Dose Route Start Last Admin Trade Name Freq PRN Reason Stop Dose Admin Acetaminophen 650 mg 12/04/21 21:17 12/12/21 08:32 Acetaminophen 325 Mg Tablet PO 650 mg Q4HR PRN Administration Pain 1 to 4 Chlordiazepoxide HCl 5 mg 12/18/21 21:00 12/24/21 21:11 Chlordiazepoxide 5 Mg Capsule PO 5 mg HS MARY Administration Haloperidol 1 mg 12/07/21 15:48 12/14/21 16:33 Haloperidol 5 Mg/Ml Vial IVP 1 mg Q6H PRN Administration Agitation Haloperidol 2 mg 12/19/21 21:00 12/25/21 08:18 Haloperidol 1 Mg Tablet PO 2 mg DAILY MARY Administration Sodium Chloride 250 mls @ 20 mls/hr 12/05/21 14:51 12/05/21 23:05 Normal Saline 0.9% IV Infused Q24H PRN Infusion TKO RATE Lorazepam 1 mg 12/11/21 12:04 12/19/21 23:45 Lorazepam 2 Mg/Ml Vial IVP 1 mg Q4H PRN Administration Agitation Magnesium Oxide 400 mg 12/05/21 09:00 12/25/21 08:18 Magnesium Oxide 400 Mg Tablet PO 400 mg DAILY MARY Administration Multivitamins 1 tab 12/05/21 09:00 12/25/21 08:22 Multivitamin Tablet PO 1 tab DAILY MARY Administration Nicotine 1 patch 12/12/21 01:01 12/25/21 08:19 Nicotine 14 Mg Patch TOP 1 patch DAILY MARY Administration Olanzapine 5 mg 12/07/21 21:00 12/24/21 21:11 Olanzapine Odt 5 Mg Tablet TL 5 mg HS MARY Administration Polyethylene Glycol 17 gm 12/09/21 14:00 12/25/21 08:19 Polyethylene Glycol 3350 17 Gm Packet PO 17 gm DAILY MARY Administration Quetiapine Fumarate 50 mg 12/10/21 21:00 12/24/21 21:11 Quetiapine 25 Mg Tablet PO 50 mg QPM MARY Administration Sodium Chloride 10 ml 12/04/21 21:17 12/18/21 20:03 Sodium Chloride Flush 0.9% 10 Ml Syringe IVP 10 ml PRN PRN Administration NEEDED PER PROVIDER ORDERS Sodium Chloride 10 ml 12/05/21 01:00 12/25/21 08:22 Sodium Chloride Flush 0.9% 10 Ml Syringe IVP 10 ml 0100,0900,1700 MARY Administration Thiamine HCl 100 mg 12/04/21 09:00 12/25/21 08:18 Thiamine 100 Mg Tablet PO 100 mg DAILY MARY Administration - Lab Result Fish Bone Diagrams: 12/12/21 08:07 12/12/21 08:07 Subjective - Subjective Patient Reports: Feeling Better, Resting Comfortably Objective Vital Signs: Vital Signs - 24 hr 12/24/21 12/25/21 12/25/21 15:40 04:02 08:00 Temperature 36.3 C L 37.2 C 36.7 C Heart Rate [ 82 70 78 Brachial] Respiratory 20 18 18 Rate Blood Pressure 128/82 H 98/72 112/60 [Right Brachial artery] O2 Saturation 99 94 98 Oxygen O2 Source Room air I&O (Last 24 Hrs): Intake and Output Totals x24h 12/23/21 12/24/21 12/25/21 23:59 23:59 23:59 Intake Total 1230 2710 1460 Output Total 3 Balance 1227 2710 1460 General: Alert, No acute distress HEENT: Atraumatic Neck: Supple Lymphatic: no adenopathy Neuro: Alert, Non Focal Cardiovascular: Regular rate, Normal S1, Normal S2 Respiratory: Chest non-tender, No respiratory distress Abdomen: Normal bowel sounds, Soft Extremities: Normal pulses - Results Results: Laboratory Results WBC 3.4 x10^3/uL (4.8-10.8) L 12/12/21 08:07 RBC 4.17 10^6/uL (4.70-6.10) L 12/12/21 08:07 Hgb 13.2 g/dL (14.0-18.0) L 12/12/21 08:07 Hct 40.3 % (42.0-52.0) L 12/12/21 08:07 MCV 96.6 fL (80.0-94.0) H 12/12/21 08:07 MCH 31.7 pg (27.0-31.0) H 12/12/21 08:07 MCHC 32.8 g/dL (32.0-36.0) 12/12/21 08:07 RDW 13.7 % (12.0-15.0) 12/12/21 08:07 Plt Count 146 10^3/uL (130-450) 12/12/21 08:07 MPV 12.8 fL (7.4-11.4) H 12/12/21 08:07 Neut # (Auto) 1.5 10^3/uL (1.5-6.6) 12/12/21 08:07 Lymph # (Auto) 1.4 10^3/uL (1.5-3.5) L 12/12/21 08:07 [place] # (Auto) 0.4 10^3/uL (0.0-1.0) 12/12/21 08:07 Eos # (Auto) 0.1 10^3/uL (0.0-0.7) 12/12/21 08:07 Baso # (Auto) 0.1 10^3/uL (0.0-0.1) 12/12/21 08:07 Absolute Nucleated RBC 0.00 x10^3/uL 12/12/21 08:07 Nucleated RBC % 0.0 /100WBC 12/12/21 08:07 PT 15.1 secs (9.9-12.6) H 12/04/21 23:33 INR 1.4 (0.8-1.2) H 12/04/21 23:33 APTT 24.8 secs (24.9-33.3) L 12/03/21 18:20 Sodium 135 mmol/L (135-145) 12/12/21 08:07 Potassium 3.8 mmol/L (3.5-5.0) 12/12/21 08:07 Chloride 101 mmol/L (101-111) 12/12/21 08:07 Carbon Dioxide 24 mmol/L (21-32) 12/12/21 08:07 Anion Gap 10.0 (6-13) 12/12/21 08:07 BUN 19 mg/dL (6-20) 12/12/21 08:07 Creatinine 0.7 mg/dL (0.6-1.2) 12/12/21 08:07 Estimated GFR (MDRD) 114 (>89) 12/12/21 08:07 Glucose 121 mg/dL (70-100) H 12/12/21 08:07 Calcium 8.7 mg/dL (8.5-10.3) 12/12/21 08:07 Phosphorus 3.6 mg/dL (2.5-4.6) 12/06/21 07:04 Magnesium 2.0 mg/dL (1.7-2.8) 12/06/21 07:04 Total Bilirubin 0.5 mg/dL (0.2-1.0) 12/12/21 08:07 Direct Bilirubin < 0.1 mg/dL (0.1-0.5) L 12/09/21 07:55 AST 149 IU/L (10-42) H 12/12/21 08:07 ALT 254 IU/L (10-60) H 12/12/21 08:07 Alkaline Phosphatase 80 IU/L (42-121) 12/12/21 08:07 Ammonia 12.5 umol/L (7-35) 12/08/21 07:54 Total Protein 7.1 g/dL (6.7-8.2) 12/12/21 08:07 Albumin 3.7 g/dL (3.2-5.5) 12/12/21 08:07 Globulin 3.4 g/dL (2.1-4.2) 12/12/21 08:07 Albumin/Globulin Ratio 1.1 (1.0-2.2) 12/12/21 08:07 Lipase 28 U/L (22-51) 12/06/21 07:04 Whole Bld Vitamin B1 TNP 12/04/21 16:52 TSH 1.25 uIU/mL (0.34-5.60) 12/03/21 18:20 Urine Color YELLOW 12/03/21 18:26 Urine Clarity CLEAR (CLEAR) 12/03/21 18:26 Urine pH 6.5 PH (5.0-7.5) 12/03/21 18:26 Ur Specific [place] 1.020 (1.002-1.030) 12/03/21 18:26 Urine Protein NEGATIVE mg/dL (NEGATIVE) 12/03/21 18:26 Urine Glucose (UA) NEGATIVE mg/dL (NEGATIVE) 12/03/21 18:26 Urine Ketones NEGATIVE mg/dL (NEGATIVE) 12/03/21 18:26 Urine Occult Blood NEGATIVE (NEGATIVE) 12/03/21 18:26 Urine Nitrite NEGATIVE (NEGATIVE) 12/03/21 18:26 Urine Bilirubin NEGATIVE (NEGATIVE) 12/03/21 18:26 Urine Urobilinogen 0.2 (NORMAL) E.U./dL (NORMAL) 12/03/21 18:26 Ur Leukocyte Esterase NEGATIVE (NEGATIVE) 12/03/21 18:26 Ur Microscopic Review NOT INDICATED 12/03/21 18:26 Urine Culture Comments NOT INDICATED 12/03/21 18:26 Nasal Adenovirus (PCR) NOT DETECTED 12/20/21 19:10 Nasal B. parapertussis DNA (PCR) NOT DETECTED 12/20/21 19:10 Nasal Coronavir 229E PCR NOT DETECTED 12/20/21 19:10 Nasal Coronavir HKU1 PCR NOT DETECTED 12/20/21 19:10 Nasal Coronavir NL63 PCR NOT DETECTED 12/20/21 19:10 Nasal Coronavir OC43 PCR NOT DETECTED 12/20/21 19:10 Nasal Enterovir/Rhinovir PCR NOT DETECTED 12/20/21 19:10 Nasal Influenza B PCR NOT DETECTED 12/20/21 19:10 Nasal Influenza A PCR NOT DETECTED 12/20/21 19:10 Nasal Parainfluen 1 PCR NOT DETECTED 12/20/21 19:10 Nasal Parainfluen 2 PCR NOT DETECTED 12/20/21 19:10 Nasal Parainfluen 3 PCR NOT DETECTED 12/20/21 19:10 Nasal Parainfluen 4 PCR NOT DETECTED 12/20/21 19:10 Nasal RSV (PCR) NOT DETECTED 12/20/21 19:10 Nasal B.pertussis DNA PCR NOT DETECTED 12/20/21 19:10 Nasal C.pneumoniae (PCR) NOT DETECTED 12/20/21 19:10 Juan Daniel Human Metapneumo PCR NOT DETECTED 12/20/21 19:10 Nasal M.pneumoniae (PCR) NOT DETECTED 12/20/21 19:10 Nasal SARS-CoV-2 (PCR) DETECTED A 12/20/21 19:10 Salicylates < 6.0 mg/dL 12/03/21 18:20 Urine Opiates Screen NEGATIVE (NEGATIVE) 12/03/21 18:26 Ur Oxycodone Screen NEGATIVE (NEGATIVE) 12/03/21 18:26 Urine Methadone Screen NEGATIVE (NEGATIVE) 12/03/21 18:26 Ur Propoxyphene Screen NEGATIVE (NEGATIVE) 12/03/21 18:26 Acetaminophen < 10 ug/mL (10-30) L 12/03/21 18:20 Ur Barbiturates Screen NEGATIVE (NEGATIVE) 12/03/21 18:26 Ur Tricyclics Screen NEGATIVE (NEGATIVE) 12/03/21 18:26 Ur Phencyclidine Scrn NEGATIVE (NEGATIVE) 12/03/21 18:26 Ur Amphetamine Screen NEGATIVE (NEGATIVE) 12/03/21 18:26 U Methamphetamines Scrn NEGATIVE (NEGATIVE) 12/03/21 18:26 U Benzodiazepines Scrn POSITIVE (NEGATIVE) H 12/03/21 18:26 Urine Cocaine Screen NEGATIVE (NEGATIVE) 12/03/21 18:26 U Cannabinoids Screen NEGATIVE (NEGATIVE) 12/03/21 18:26 Ethyl Alcohol < 5.0 mg/dL 12/03/21 18:20 Sepsis Event Note (H) - Evaluation Current Stage of Sepsis: Ruled out ABX Reporting Has patient been on IV antibiotics over the past 48 hours?: No Current Medications - Current Medications Current Medications: Active Medications Acetaminophen (Acetaminophen 325 Mg Tablet) 650 mg PO Q4HR PRN PRN Reason: Pain 1 to 4 Last Admin: 12/12/21 08:32 Dose: 650 mg Docusate Sodium (Docusate Sodium 250 Mg Capsule) 250 - 500 mg PO DAILY PRN PRN Reason: Constipation Haloperidol (Haloperidol 5 Mg/Ml Vial) 1 mg IVP Q6H PRN PRN Reason: Agitation Last Admin: 12/14/21 16:33 Dose: 1 mg Haloperidol (Haloperidol 1 Mg Tablet) 2 mg PO DAILY [facility] Last Admin: 12/25/21 08:18 Dose: 2 mg Sodium Chloride (Normal Saline 0.9%) 250 mls @ 20 mls/hr IV Q24H PRN PRN Reason: TKO RATE Last Infusion: 12/05/21 23:05 Dose: Infused Lorazepam (Lorazepam 2 Mg/Ml Vial) 1 mg IVP Q4H PRN PRN Reason: Agitation Last Admin: 12/19/21 23:45 Dose: 1 mg Magnesium Oxide (Magnesium Oxide 400 Mg Tablet) 400 mg PO DAILY [facility] Last Admin: 12/25/21 08:18 Dose: 400 mg Multivitamins (Multivitamin Tablet) 1 tab PO DAILY [facility] Last Admin: 12/25/21 08:22 Dose: 1 tab Nicotine (Nicotine 14 Mg Patch) 1 patch TOP DAILY [facility] Last Admin: 12/25/21 08:19 Dose: 1 patch Olanzapine (Olanzapine Odt 5 Mg Tablet) 5 mg TL HS [facility] Last Admin: 12/24/21 21:11 Dose: 5 mg Ondansetron HCl (Ondansetron 4 Mg/2 Ml Vial) 4 mg IVP Q6HR PRN PRN Reason: Nausea / Vomiting Polyethylene Glycol (Polyethylene Glycol 3350 17 Gm Packet) 17 gm PO DAILY [facility] Last Admin: 12/25/21 08:19 Dose: 17 gm Quetiapine Fumarate (Quetiapine 25 Mg Tablet) 50 mg PO QPM [facility] Last Admin: 12/24/21 21:11 Dose: 50 mg Senna (Senna 8.6 Mg Tablet) 8.6 - 17.2 mg PO DAILY PRN PRN Reason: Constipation Sodium Chloride (Sodium Chloride Flush 0.9% 10 Ml Syringe) 10 ml IVP PRN PRN PRN Reason: NEEDED PER PROVIDER ORDERS Last Admin: 12/18/21 20:03 Dose: 10 ml Sodium Chloride (Sodium Chloride Flush 0.9% 10 Ml Syringe) 10 ml IVP 0100,0900,1700 [facility] Last Admin: 12/25/21 08:22 Dose: 10 ml Thiamine HCl (Thiamine 100 Mg Tablet) 100 mg PO DAILY [facility] Last Admin: 12/25/21 08:18 Dose: 100 mg Magnesium Oxide [Mag Ox] 400 mg PO DAILY 12/01/21 Multivitamin [Theragran] 1 each PO DAILY 12/01/21
[2021-12-25] MEDS: QUEtiapine 25 MG TABLET PO SCH (21:49)
[2021-12-25] MEDS: OLANZapine ODT 5 MG TABLET TL SCH (21:49)
[2021-12-26] MEDS: SODIUM CHLORIDE FLUSH 0.9% 10 ML SYRINGE IVP SCH ×3 (01:40→17:23)
[2021-12-26] MEDS: NICOTINE 14 MG PATCH TOP SCH (08:08)
[2021-12-26] MEDS: haloperidoL 1 MG TABLET PO SCH (08:09)
[2021-12-26] MEDS: MULTIVITAMIN TABLET PO SCH (08:09)
[2021-12-26] MEDS: MAGNESIUM OXIDE 400 MG TABLET PO SCH (08:09)
[2021-12-26] MEDS: polyethylene glycoL 3350 17 GM PACKET PO SCH (08:09)
[2021-12-26] MEDS: ACETAMINOPHEN 325 MG TABLET PO PRN (08:10)
[2021-12-26] MEDS: THIAMINE 100 MG TABLET PO SCH (08:10)
--- NOTE | 2021-12-26 09:06 | PROVIDER PROGRESS NOTE ---
Assessment/Plan - Problem List (1) Metabolic encephalopathy Assessment/Plan: 12/26 pt is comfortable, no complaints and pt is stable, pt is pending for placement. 12/25, pt is stable, no complaints. pt is waiting for his guardianship and pending for placement. 12/24 pt is stable and comfortable, he ate 100% his breakfast, pt is waiting for his guardianship and pending for placement. 12/23 Patient is comfortable resting in the bed and stable. pt is pending for placement. social sciences lecturer was consulted for Disposition (2) Wernicke-Korsakoff syndrome (alcoholic) Assessment/Plan: pt is stable. continue on B1 PO daily. Patient has history of chronic alcohol abuse. He had a formal evaluation by telepsych on December 07 06/27/2022. He cannot make decisions for himself. He needs a guardian and will also need permanent placement. Daughter is not able to to accommodate the patient at her house due to behavioral disturbances on his part and she has a little child at home. (3) Alcohol abuse 12/25 pt was Already in hospital for 21 days, patient does not present alcohol withdrawal any more, we will hold Librium for now. 12/24 pt's Librium is down to 5mg daily. since pt has no more withdrawal symptoms, we may d/c it on tomorrow. continue on B1 PO daily. Patient has history of chronic alcohol abuse. Patient has not had any alcoholic beverage throughout this time in the hospital. stable and without acute alcohol withdrawal now. continue on B1 PO daily. (4) COVID-19 Assessment/Plan: Patient is currently asymptomatic and breathing comfortably on room air. This was diagnosed on 12/03/2021 Repeat Covid test on 12/20/2021 was positive. (5) Homeless single person Assessment/Plan: Social work helping to facilitate placement. This has been particularly difficult due to pt's social situation and his medical hx. - Current Meds Current Meds: Current Medications Generic Name Dose Route Start Last Admin Trade Name Freq PRN Reason Stop Dose Admin Acetaminophen 650 mg 12/04/21 21:17 12/26/21 08:10 Acetaminophen 325 Mg Tablet PO 650 mg Q4HR PRN Administration Pain 1 to 4 Haloperidol 1 mg 12/07/21 15:48 12/14/21 16:33 Haloperidol 5 Mg/Ml Vial IVP 1 mg Q6H PRN Administration Agitation Haloperidol 2 mg 12/19/21 21:00 12/26/21 08:09 Haloperidol 1 Mg Tablet PO 2 mg DAILY MARY Administration Sodium Chloride 250 mls @ 20 mls/hr 12/05/21 14:51 12/05/21 23:05 Normal Saline 0.9% IV Infused Q24H PRN Infusion TKO RATE Lorazepam 1 mg 12/11/21 12:04 12/19/21 23:45 Lorazepam 2 Mg/Ml Vial IVP 1 mg Q4H PRN Administration Agitation Magnesium Oxide 400 mg 12/05/21 09:00 12/26/21 08:09 Magnesium Oxide 400 Mg Tablet PO 400 mg DAILY MARY Administration Multivitamins 1 tab 12/05/21 09:00 12/26/21 08:09 Multivitamin Tablet PO 1 tab DAILY MARY Administration Nicotine 1 patch 12/12/21 01:01 12/26/21 08:08 Nicotine 14 Mg Patch TOP 1 patch DAILY MARY Administration Olanzapine 5 mg 12/07/21 21:00 12/25/21 21:49 Olanzapine Odt 5 Mg Tablet TL 5 mg HS MARY Administration Polyethylene Glycol 17 gm 12/09/21 14:00 12/26/21 08:09 Polyethylene Glycol 3350 17 Gm Packet PO 17 gm DAILY MARY Administration Quetiapine Fumarate 50 mg 12/10/21 21:00 12/25/21 21:49 Quetiapine 25 Mg Tablet PO 50 mg QPM MARY Administration Sodium Chloride 10 ml 12/04/21 21:17 12/18/21 20:03 Sodium Chloride Flush 0.9% 10 Ml Syringe IVP 10 ml PRN PRN Administration NEEDED PER PROVIDER ORDERS Sodium Chloride 10 ml 12/05/21 01:00 12/26/21 08:09 Sodium Chloride Flush 0.9% 10 Ml Syringe IVP 10 ml 0100,0900,1700 MARY Administration Thiamine HCl 100 mg 12/04/21 09:00 12/26/21 08:10 Thiamine 100 Mg Tablet PO 100 mg DAILY MARY Administration - Lab Result Fish Bone Diagrams: 12/12/21 08:07 12/12/21 08:07 Subjective - Subjective Patient Reports: Resting Comfortably Objective Vital Signs: Vital Signs - 24 hr 12/25/21 12/26/21 15:42 08:33 Temperature 36.6 C 36.4 C L Heart Rate [ 80 96 Brachial] Respiratory 20 16 Rate Blood Pressure 124/80 134/98 H [Right Brachial artery] O2 Saturation 99 99 Oxygen O2 Source Room air I&O (Last 24 Hrs): Intake and Output Totals x24h 12/24/21 12/25/21 12/26/21 23:59 23:59 23:59 Intake Total 4100 3176 720 Balance 2710 3176 720 General: Alert, Cooperative, No acute distress HEENT: Atraumatic Neck: Supple Lymphatic: no adenopathy Neuro: Alert, Non Focal Cardiovascular: Regular rate, Normal S1, Normal S2 Respiratory: Chest non-tender, No respiratory distress Abdomen: Normal bowel sounds, Soft Extremities: Normal pulses - Results Results: Laboratory Results WBC 3.4 x10^3/uL (4.8-10.8) L 12/12/21 08:07 RBC 4.17 10^6/uL (4.70-6.10) L 12/12/21 08:07 Hgb 13.2 g/dL (14.0-18.0) L 12/12/21 08:07 Hct 40.3 % (42.0-52.0) L 12/12/21 08:07 MCV 96.6 fL (80.0-94.0) H 12/12/21 08:07 MCH 31.7 pg (27.0-31.0) H 12/12/21 08:07 MCHC 32.8 g/dL (32.0-36.0) 12/12/21 08:07 RDW 13.7 % (12.0-15.0) 12/12/21 08:07 Plt Count 146 10^3/uL (130-450) 12/12/21 08:07 MPV 12.8 fL (7.4-11.4) H 12/12/21 08:07 Neut # (Auto) 1.5 10^3/uL (1.5-6.6) 12/12/21 08:07 Lymph # (Auto) 1.4 10^3/uL (1.5-3.5) L 12/12/21 08:07 [place] # (Auto) 0.4 10^3/uL (0.0-1.0) 12/12/21 08:07 Eos # (Auto) 0.1 10^3/uL (0.0-0.7) 12/12/21 08:07 Baso # (Auto) 0.1 10^3/uL (0.0-0.1) 12/12/21 08:07 Absolute Nucleated RBC 0.00 x10^3/uL 12/12/21 08:07 Nucleated RBC % 0.0 /100WBC 12/12/21 08:07 PT 15.1 secs (9.9-12.6) H 12/04/21 23:33 INR 1.4 (0.8-1.2) H 12/04/21 23:33 APTT 24.8 secs (24.9-33.3) L 12/03/21 18:20 Sodium 135 mmol/L (135-145) 12/12/21 08:07 Potassium 3.8 mmol/L (3.5-5.0) 12/12/21 08:07 Chloride 101 mmol/L (101-111) 12/12/21 08:07 Carbon Dioxide 24 mmol/L (21-32) 12/12/21 08:07 Anion Gap 10.0 (6-13) 12/12/21 08:07 BUN 19 mg/dL (6-20) 12/12/21 08:07 Creatinine 0.7 mg/dL (0.6-1.2) 12/12/21 08:07 Estimated GFR (MDRD) 114 (>89) 12/12/21 08:07 Glucose 121 mg/dL (70-100) H 12/12/21 08:07 Calcium 8.7 mg/dL (8.5-10.3) 12/12/21 08:07 Phosphorus 3.6 mg/dL (2.5-4.6) 12/06/21 07:04 Magnesium 2.0 mg/dL (1.7-2.8) 12/06/21 07:04 Total Bilirubin 0.5 mg/dL (0.2-1.0) 12/12/21 08:07 Direct Bilirubin < 0.1 mg/dL (0.1-0.5) L 12/09/21 07:55 AST 149 IU/L (10-42) H 12/12/21 08:07 ALT 254 IU/L (10-60) H 12/12/21 08:07 Alkaline Phosphatase 80 IU/L (42-121) 12/12/21 08:07 Ammonia 12.5 umol/L (7-35) 12/08/21 07:54 Total Protein 7.1 g/dL (6.7-8.2) 12/12/21 08:07 Albumin 3.7 g/dL (3.2-5.5) 12/12/21 08:07 Globulin 3.4 g/dL (2.1-4.2) 12/12/21 08:07 Albumin/Globulin Ratio 1.1 (1.0-2.2) 12/12/21 08:07 Lipase 28 U/L (22-51) 12/06/21 07:04 Whole Bld Vitamin B1 TNP 12/04/21 16:52 TSH 1.25 uIU/mL (0.34-5.60) 12/03/21 18:20 Urine Color YELLOW 12/03/21 18:26 Urine Clarity CLEAR (CLEAR) 12/03/21 18:26 Urine pH 6.5 PH (5.0-7.5) 12/03/21 18:26 Ur Specific [place] 1.020 (1.002-1.030) 12/03/21 18:26 Urine Protein NEGATIVE mg/dL (NEGATIVE) 12/03/21 18:26 Urine Glucose (UA) NEGATIVE mg/dL (NEGATIVE) 12/03/21 18:26 Urine Ketones NEGATIVE mg/dL (NEGATIVE) 12/03/21 18:26 Urine Occult Blood NEGATIVE (NEGATIVE) 12/03/21 18:26 Urine Nitrite NEGATIVE (NEGATIVE) 12/03/21 18:26 Urine Bilirubin NEGATIVE (NEGATIVE) 12/03/21 18:26 Urine Urobilinogen 0.2 (NORMAL) E.U./dL (NORMAL) 12/03/21 18:26 Ur Leukocyte Esterase NEGATIVE (NEGATIVE) 12/03/21 18:26 Ur Microscopic Review NOT INDICATED 12/03/21 18:26 Urine Culture Comments NOT INDICATED 12/03/21 18:26 Nasal Adenovirus (PCR) NOT DETECTED 12/20/21 19:10 Nasal B. parapertussis DNA (PCR) NOT DETECTED 12/20/21 19:10 Nasal Coronavir 229E PCR NOT DETECTED 12/20/21 19:10 Nasal Coronavir HKU1 PCR NOT DETECTED 12/20/21 19:10 Nasal Coronavir NL63 PCR NOT DETECTED 12/20/21 19:10 Nasal Coronavir OC43 PCR NOT DETECTED 12/20/21 19:10 Nasal Enterovir/Rhinovir PCR NOT DETECTED 12/20/21 19:10 Nasal Influenza B PCR NOT DETECTED 12/20/21 19:10 Nasal Influenza A PCR NOT DETECTED 12/20/21 19:10 Nasal Parainfluen 1 PCR NOT DETECTED 12/20/21 19:10 Nasal Parainfluen 2 PCR NOT DETECTED 12/20/21 19:10 Nasal Parainfluen 3 PCR NOT DETECTED 12/20/21 19:10 Nasal Parainfluen 4 PCR NOT DETECTED 12/20/21 19:10 Nasal RSV (PCR) NOT DETECTED 12/20/21 19:10 Nasal B.pertussis DNA PCR NOT DETECTED 12/20/21 19:10 Nasal C.pneumoniae (PCR) NOT DETECTED 12/20/21 19:10 Juan Daniel Human Metapneumo PCR NOT DETECTED 12/20/21 19:10 Nasal M.pneumoniae (PCR) NOT DETECTED 12/20/21 19:10 Nasal SARS-CoV-2 (PCR) DETECTED A 12/20/21 19:10 Salicylates < 6.0 mg/dL 12/03/21 18:20 Urine Opiates Screen NEGATIVE (NEGATIVE) 12/03/21 18:26 Ur Oxycodone Screen NEGATIVE (NEGATIVE) 12/03/21 18:26 Urine Methadone Screen NEGATIVE (NEGATIVE) 12/03/21 18:26 Ur Propoxyphene Screen NEGATIVE (NEGATIVE) 12/03/21 18:26 Acetaminophen < 10 ug/mL (10-30) L 12/03/21 18:20 Ur Barbiturates Screen NEGATIVE (NEGATIVE) 12/03/21 18:26 Ur Tricyclics Screen NEGATIVE (NEGATIVE) 12/03/21 18:26 Ur Phencyclidine Scrn NEGATIVE (NEGATIVE) 12/03/21 18:26 Ur Amphetamine Screen NEGATIVE (NEGATIVE) 12/03/21 18:26 U Methamphetamines Scrn NEGATIVE (NEGATIVE) 12/03/21 18:26 U Benzodiazepines Scrn POSITIVE (NEGATIVE) H 12/03/21 18:26 Urine Cocaine Screen NEGATIVE (NEGATIVE) 12/03/21 18:26 U Cannabinoids Screen NEGATIVE (NEGATIVE) 12/03/21 18:26 Ethyl Alcohol < 5.0 mg/dL 12/03/21 18:20 Sepsis Event Note (H) - Evaluation Current Stage of Sepsis: Ruled out ABX Reporting Has patient been on IV antibiotics over the past 48 hours?: No Current Medications - Current Medications Current Medications: Active Medications Acetaminophen (Acetaminophen 325 Mg Tablet) 650 mg PO Q4HR PRN PRN Reason: Pain 1 to 4 Last Admin: 12/26/21 08:10 Dose: 650 mg Docusate Sodium (Docusate Sodium 250 Mg Capsule) 250 - 500 mg PO DAILY PRN PRN Reason: Constipation Haloperidol (Haloperidol 5 Mg/Ml Vial) 1 mg IVP Q6H PRN PRN Reason: Agitation Last Admin: 12/14/21 16:33 Dose: 1 mg Haloperidol (Haloperidol 1 Mg Tablet) 2 mg PO DAILY [facility] Last Admin: 12/26/21 08:09 Dose: 2 mg Sodium Chloride (Normal Saline 0.9%) 250 mls @ 20 mls/hr IV Q24H PRN PRN Reason: TKO RATE Last Infusion: 12/05/21 23:05 Dose: Infused Lorazepam (Lorazepam 2 Mg/Ml Vial) 1 mg IVP Q4H PRN PRN Reason: Agitation Last Admin: 12/19/21 23:45 Dose: 1 mg Magnesium Oxide (Magnesium Oxide 400 Mg Tablet) 400 mg PO DAILY [facility] Last Admin: 12/26/21 08:09 Dose: 400 mg Multivitamins (Multivitamin Tablet) 1 tab PO DAILY [facility] Last Admin: 12/26/21 08:09 Dose: 1 tab Nicotine (Nicotine 14 Mg Patch) 1 patch TOP DAILY [facility] Last Admin: 12/26/21 08:08 Dose: 1 patch Olanzapine (Olanzapine Odt 5 Mg Tablet) 5 mg TL HS [facility] Last Admin: 12/25/21 21:49 Dose: 5 mg Ondansetron HCl (Ondansetron 4 Mg/2 Ml Vial) 4 mg IVP Q6HR PRN PRN Reason: Nausea / Vomiting Polyethylene Glycol (Polyethylene Glycol 3350 17 Gm Packet) 17 gm PO DAILY [facility] Last Admin: 12/26/21 08:09 Dose: 17 gm Quetiapine Fumarate (Quetiapine 25 Mg Tablet) 50 mg PO QPM [facility] Last Admin: 12/25/21 21:49 Dose: 50 mg Senna (Senna 8.6 Mg Tablet) 8.6 - 17.2 mg PO DAILY PRN PRN Reason: Constipation Sodium Chloride (Sodium Chloride Flush 0.9% 10 Ml Syringe) 10 ml IVP PRN PRN PRN Reason: NEEDED PER PROVIDER ORDERS Last Admin: 12/18/21 20:03 Dose: 10 ml Sodium Chloride (Sodium Chloride Flush 0.9% 10 Ml Syringe) 10 ml IVP 0100,0900,1700 [facility] Last Admin: 12/26/21 08:09 Dose: 10 ml Thiamine HCl (Thiamine 100 Mg Tablet) 100 mg PO DAILY [facility] Last Admin: 12/26/21 08:10 Dose: 100 mg Magnesium Oxide [Mag Ox] 400 mg PO DAILY 12/01/21 Multivitamin [Theragran] 1 each PO DAILY 12/01/21
[2021-12-26] MEDS: OLANZapine ODT 5 MG TABLET TL SCH (21:31)
[2021-12-26] MEDS: QUEtiapine 25 MG TABLET PO SCH (21:31)
[2021-12-27] MEDS: SODIUM CHLORIDE FLUSH 0.9% 10 ML SYRINGE IVP SCH ×3 (01:00→15:55)
[2021-12-27] MEDS: MAGNESIUM OXIDE 400 MG TABLET PO SCH (08:23)
[2021-12-27] MEDS: THIAMINE 100 MG TABLET PO SCH (08:23)
[2021-12-27] MEDS: haloperidoL 1 MG TABLET PO SCH (08:23)
[2021-12-27] MEDS: NICOTINE 14 MG PATCH TOP SCH (08:23)
[2021-12-27] MEDS: polyethylene glycoL 3350 17 GM PACKET PO SCH (08:24)
[2021-12-27] MEDS: MULTIVITAMIN TABLET PO SCH (08:24)
--- NOTE | 2021-12-27 08:27 | PROVIDER PROGRESS NOTE ---
Subjective - Prog Note Date Prog Note Date: 12/27/21 - Subjective Pt reports feeling: No change Subjective: Pt found in his room sitting on the edge of the bed watching old Westerns on TV. Denies pain, dyspnea, nausea, and vomiting. Reports his only complaint is feeling "bored". Objective - Vital Signs/Intake & Output Reviewed Vital Signs: Yes Vital Signs: Vital Signs x48h Temp Pulse Resp BP Pulse Ox 12/27/21 07:26 36.3 C L 88 16 122/83 H 99 Intake & Output: Intake & Output 12/24/21 12/25/21 12/26/21 12/27/21 23:59 23:59 23:59 23:59 Intake Total 2710 3176 2680 240 Balance 2710 3176 2680 240 - Objective General Appearance: positive: No acute distress, Alert ENT: positive: ENT inspection nml, No signs of dehydration Neck: positive: Nml inspection Respiratory: positive: Chest non-tender, No respiratory distress, Breath sounds nml Cardiovascular: positive: Regular rate & rhythm, No murmur Peripheral Pulses: 2+ Dorsalis pedis (R), 2+ Dorsalis pedis (L) Abdomen: positive: Non-tender, No organomegaly, Nml bowel sounds, No distention Skin: positive: Color nml Extremities: positive: Non-tender, Full ROM, Nml appearance, No pedal edema Neurologic/Psychiatric: positive: Motor nml, Sensation nml, Other (Alert, following commands) - Lab Results Fish Bones: 12/12/21 08:07 12/12/21 08:07 Sepsis Event Note (H) - Evaluation Current Stage of Sepsis: Ruled out Assessment/Plan - Problem List (1) Metabolic encephalopathy Impression: Stable. Sitting on edge of bed watching television, appropriate interactions with staff. On chart review he has remained stable with no complaints this week. Pending guardianship and placement, Social Work has been consulted. (2) Wernicke-Korsakoff syndrome (alcoholic) Impression: Stable. Continued on B1 PO daily. Per previous notes he has a history of chronic alcohol abuse. Formal evaluation done by telepsych on November and it was determined he cannot make decisions for himself. He will need a guardian and permanent placement. Daughter is unable to bring the patient home with her due to his behavioral disturbances and she has a small child at home. (3) Alcohol abuse Impression: Stable. This is hospital day 23 and he is no longer in alcohol withdrawal. Librium is no longer ordered. He has a history of chronic alcohol abuse but has not had any alcohol intake this admission. He is stable and will be continued on B1 PO daily. (4) COVID-19 Impression: Stable. First positive ttest 12/03/21, repeat test on 12/20/21 was also positive. He has been asymptomatic and breathing comfortably on room air. Frequently ambulating in his room, SCDs have been ordered for DVT prophylaxis. (5) Homeless single person Impression: Social work is following to facilitate guardianship and placement. This will likely be a prolonged process due to his social situation and medical history.
[2021-12-27] MEDS: OLANZapine ODT 5 MG TABLET TL SCH (21:20)
[2021-12-27] MEDS: QUEtiapine 25 MG TABLET PO SCH (21:20)
[2021-12-28] MEDS: SODIUM CHLORIDE FLUSH 0.9% 10 ML SYRINGE IVP SCH ×3 (06:45→16:14)
--- NOTE | 2021-12-28 07:38 | PROVIDER PROGRESS NOTE ---
Subjective - Prog Note Date Prog Note Date: 12/28/21 - Subjective Pt reports feeling: No change Subjective: Pt is a little restless this morning, pacing in his room but overall stable. Overnight nursing notes indicate he was hallucinating but he does not appear to be hallucinating this morning. He tells me his family is coming to flower buncher or picker his laundry ("I need to buy you guys a washer and dryer-it's the little things!"). He's also trying to get his sister to bring him nail clippers as his fingernails and toenails are very long and starting to break off, which is upsetting to him. He reports a history of fingernail infections and would like them to be clipped. Nursing gave him nail files to use while he waits for someone to bring him clippers. Denies pain, nausea, vomiting and dyspnea. Objective - Vital Signs/Intake & Output Reviewed Vital Signs: Yes Vital Signs: Vital Signs x48h Temp Pulse Resp BP Pulse Ox 12/28/21 04:54 36.3 C L 86 16 119/89 H 98 Intake & Output: Intake & Output 12/25/21 12/26/21 12/27/21 12/28/21 23:59 23:59 23:59 23:59 Intake Total 3176 2680 2800 1200 Balance 3176 2680 2800 1200 - Objective General Appearance: positive: No acute distress, Alert Eyes Bilateral: positive: Normal inspection, Conjunctivae nml, No scleral icterus ENT: positive: No signs of dehydration Neck: positive: Nml inspection Respiratory: positive: Chest non-tender, No respiratory distress Cardiovascular: positive: Regular rate & rhythm Abdomen: positive: Non-tender, No distention Skin: positive: Color nml, Other (Long finger and toe nails) Extremities: positive: Non-tender, Full ROM, Nml appearance, No pedal edema Neurologic/Psychiatric: positive: Other (oriented to self, place and situation; does not appear to be hallucinating at this time) - Lab Results Fish Bones: 12/12/21 08:07 12/12/21 08:07 Sepsis Event Note (H) - Evaluation Current Stage of Sepsis: Ruled out Assessment/Plan - Problem List (1) Metabolic encephalopathy Impression: Stable. Walking in his room and getting his laundry together for his sister to flower buncher or picker and take with her. Reports she is coming to bring nail clippers and take his laundry because "after three weeks these stink". On chart review he appears to have had confusion last night and thought nursing staff were his sisters, no sign of this on my exam this morning as he is interacting appropriat violeta with me. Pending guardianship and placement, Social Work following. (2) Wernicke-Korsakoff syndrome (alcoholic) Impression: Stable. Some confusion overnight but appropriate this morning. Continued on B1 PO daily. Per previous notes he has a history of chronic alcohol abuse. Formal evaluation done by telepsych on November and it was determined he cannot make decisions for himself. He will need a guardian and permanent placement. Daughter is unable to bring the patient home with her due to his behavioral disturbances and she has a small child at home. (3) Alcohol abuse Impression: Stable. This is hospital day 24 and he is no longer in alcohol withdrawal. Librium is no longer ordered. He has a history of chronic alcohol abuse but has not had any alcohol intake this admission. He is stable and will be continued on B1 PO daily. (4) COVID-19 Impression: Stable. First positive test 12/03/21, repeat test on 12/20/21 was also positive. He is no longer on infectious precautions. He has been asymptomatic and breathing comfortably on room air. Frequently ambulating in his room, SCDs have been ordered for DVT prophylaxis when he is in bed. (5) Homeless single person Impression: He was unhoused prior to admission. Social work is following to facilitate guardianship and placement. This will likely be a prolonged process due to his social situation and medical history.
[2021-12-28] MEDS: THIAMINE 100 MG TABLET PO SCH (08:29)
[2021-12-28] MEDS: NICOTINE 14 MG PATCH TOP SCH (08:29)
[2021-12-28] MEDS: haloperidoL 1 MG TABLET PO SCH (08:29)
[2021-12-28] MEDS: MULTIVITAMIN TABLET PO SCH (08:29)
[2021-12-28] MEDS: MAGNESIUM OXIDE 400 MG TABLET PO SCH (08:29)
[2021-12-28] MEDS: polyethylene glycoL 3350 17 GM PACKET PO SCH (08:30)
[2021-12-28] MEDS: QUEtiapine 25 MG TABLET PO SCH (19:40)
[2021-12-28] MEDS: OLANZapine ODT 5 MG TABLET TL SCH (19:41)
[2021-12-29] MEDS: SODIUM CHLORIDE FLUSH 0.9% 10 ML SYRINGE IVP SCH ×3 (01:36→16:28)
[2021-12-29] MEDS: haloperidoL 1 MG TABLET PO SCH (10:26)
[2021-12-29] MEDS: THIAMINE 100 MG TABLET PO SCH (10:26)
[2021-12-29] MEDS: MAGNESIUM OXIDE 400 MG TABLET PO SCH (10:26)
[2021-12-29] MEDS: MULTIVITAMIN TABLET PO SCH (10:26)
[2021-12-29] MEDS: NICOTINE 14 MG PATCH TOP SCH (10:27)
[2021-12-29] MEDS: polyethylene glycoL 3350 17 GM PACKET PO SCH (10:29)
--- NOTE | 2021-12-29 15:43 | PROVIDER PROGRESS NOTE ---
Subjective - Prog Note Date Prog Note Date: 12/29/21 - Subjective Subjective: He reports feeling well. No shortness of breath. He is happy he got his fingernails cut. He knows he is at the hospital. He feels like his mentation is improving. Current Medications - Current Medications Current Medications: Active Medications Acetaminophen (Acetaminophen 325 Mg Tablet) 650 mg PO Q4HR PRN PRN Reason: Pain 1 to 4 Last Admin: 12/26/21 08:10 Dose: 650 mg Docusate Sodium (Docusate Sodium 250 Mg Capsule) 250 - 500 mg PO DAILY PRN PRN Reason: Constipation Haloperidol (Haloperidol 5 Mg/Ml Vial) 1 mg IVP Q6H PRN PRN Reason: Agitation Last Admin: 12/14/21 16:33 Dose: 1 mg Haloperidol (Haloperidol 1 Mg Tablet) 2 mg PO DAILY [facility] Last Admin: 12/29/21 10:26 Dose: 2 mg Sodium Chloride (Normal Saline 0.9%) 250 mls @ 20 mls/hr IV Q24H PRN PRN Reason: TKO RATE Last Infusion: 12/05/21 23:05 Dose: Infused Lorazepam (Lorazepam 2 Mg/Ml Vial) 1 mg IVP Q4H PRN PRN Reason: Agitation Last Admin: 12/19/21 23:45 Dose: 1 mg Magnesium Oxide (Magnesium Oxide 400 Mg Tablet) 400 mg PO DAILY [facility] Last Admin: 12/29/21 10:26 Dose: 400 mg Multivitamins (Multivitamin Tablet) 1 tab PO DAILY [facility] Last Admin: 12/29/21 10:26 Dose: 1 tab Nicotine (Nicotine 14 Mg Patch) 1 patch TOP DAILY [facility] Last Admin: 12/29/21 10:27 Dose: 1 patch Olanzapine (Olanzapine Odt 5 Mg Tablet) 5 mg TL HS [facility] Last Admin: 12/28/21 19:41 Dose: 5 mg Ondansetron HCl (Ondansetron 4 Mg/2 Ml Vial) 4 mg IVP Q6HR PRN PRN Reason: Nausea / Vomiting Polyethylene Glycol (Polyethylene Glycol 3350 17 Gm Packet) 17 gm PO DAILY [facility] Last Admin: 12/29/21 10:29 Dose: Not Given Quetiapine Fumarate (Quetiapine 25 Mg Tablet) 50 mg PO QPM [facility] Last Admin: 12/28/21 19:40 Dose: 50 mg Senna (Senna 8.6 Mg Tablet) 8.6 - 17.2 mg PO DAILY PRN PRN Reason: Constipation Sodium Chloride (Sodium Chloride Flush 0.9% 10 Ml Syringe) 10 ml IVP PRN PRN PRN Reason: NEEDED PER PROVIDER ORDERS Last Admin: 12/18/21 20:03 Dose: 10 ml Sodium Chloride (Sodium Chloride Flush 0.9% 10 Ml Syringe) 10 ml IVP 0100,0900,1700 [facility] Last Admin: 12/29/21 09:00 Dose: 10 ml Thiamine HCl (Thiamine 100 Mg Tablet) 100 mg PO DAILY [facility] Last Admin: 12/29/21 10:26 Dose: 100 mg Magnesium Oxide [Mag Ox] 400 mg PO DAILY 12/01/21 Multivitamin [Theragran] 1 each PO DAILY 12/01/21 Objective - Vital Signs/Intake & Output Reviewed Vital Signs: Yes Vital Signs: Vital Signs x48h Temp Pulse Resp BP Pulse Ox 12/29/21 07:49 36.6 C 80 18 110/71 98 Intake & Output: Intake & Output 12/26/21 12/27/21 12/28/21 12/29/21 23:59 23:59 23:59 23:59 Intake Total 2680 2800 3410 1716 Balance 2680 2800 3410 1716 - Objective General Appearance: positive: No acute distress, Alert Eyes Bilateral: positive: Normal inspection, Conjunctivae nml ENT: positive: ENT inspection nml Respiratory: positive: No respiratory distress Neurologic/Psychiatric: positive: Oriented x3, Motor nml. negative: Disoriented to person, Disoriented to place, Disoriented to time - Lab Results Fish Bones: 12/12/21 08:07 12/12/21 08:07 Sepsis Event Note (H) - Evaluation Current Stage of Sepsis: Ruled out Assessment/Plan - Problem List (1) Wernicke-Korsakoff syndrome (alcoholic) Impression: He continues to do better each day. He is oriented to self, location, year, month and day of the week. He is still forgetful at times but has been cooperative with staff and appears to be having better insight each day into his medical problems. He was treated with high-dose thiamine initially. We now continue him on daily supplementation. We are working on guardianship and placement. We are continuing Zyprexa and Haldol but we can look to potentially try and taper these off as his mentation continues to improve. (2) COVID-19 Impression: His first positive test for December 03 and he is asymptomatic. He is off of precautions. (3) Homeless single person Impression: This is made disposition difficult and he requires guardianship. They are working with social work regarding this. This would be a prolonged process and he will likely be hospitalized for extended period of time. (4) Alcohol abuse Impression: He initially went through alcohol withdrawal but this is now resolved. We are continuing thiamine supplementation daily.
[2021-12-29] MEDS: QUEtiapine 25 MG TABLET PO SCH (20:29)
[2021-12-29] MEDS: OLANZapine ODT 5 MG TABLET TL SCH (20:29)
[2021-12-30] MEDS: SODIUM CHLORIDE FLUSH 0.9% 10 ML SYRINGE IVP SCH ×3 (06:56→19:40)
--- NOTE | 2021-12-30 11:04 | PROVIDER PROGRESS NOTE ---
Assessment/Plan - Problem List (1) Wernicke-Korsakoff syndrome (alcoholic) Assessment/Plan: Pt continues improved. he walk at hallway without distress. he has been cooperative with staff. He is oriented to self, location, year, month and day of the week. He was treated with high-dose thiamine initially. We now continue him on daily supplementation. We are working on guardianship and placement. criminal justice social worker was consulted for d/c planning. We are continuing Zyprexa and Haldol but we can look to potentially try and taper these off as his mentation continues to improve. (2) COVID-19 Impression: pt is asymptomatic. His first positive test for December 03 and he is asymptomatic. He is off of precautions. (3) Homeless single person Impression: This is made disposition difficult and he requires guardianship. They are working with social work regarding this. This would be a prolonged process and he will likely be hospitalized for extended period of time. (4) Alcohol abuse Impression: his librium is tapered off now. He initially went through alcohol withdrawal but this is now resolved. We are continuing thiamine supplementation daily. - Current Meds Current Meds: Current Medications Generic Name Dose Route Start Last Admin Trade Name Freq PRN Reason Stop Dose Admin Acetaminophen 650 mg 12/04/21 21:17 12/26/21 08:10 Acetaminophen 325 Mg Tablet PO 650 mg Q4HR PRN Administration Pain 1 to 4 Haloperidol 2 mg 12/19/21 21:00 12/29/21 10:26 Haloperidol 1 Mg Tablet PO 2 mg DAILY MARY Administration Sodium Chloride 250 mls @ 20 mls/hr 12/05/21 14:51 12/05/21 23:05 Normal Saline 0.9% IV Infused Q24H PRN Infusion TKO RATE Magnesium Oxide 400 mg 12/05/21 09:00 12/29/21 10:26 Magnesium Oxide 400 Mg Tablet PO 400 mg DAILY MARY Administration Multivitamins 1 tab 12/05/21 09:00 12/29/21 10:26 Multivitamin Tablet PO 1 tab DAILY MARY Administration Nicotine 1 patch 12/12/21 01:01 12/29/21 10:27 Nicotine 14 Mg Patch TOP 1 patch DAILY MARY Administration Olanzapine 5 mg 12/07/21 21:00 12/29/21 20:29 Olanzapine Odt 5 Mg Tablet TL 5 mg HS MARY Administration Polyethylene Glycol 17 gm 12/09/21 14:00 12/29/21 10:29 Polyethylene Glycol 3350 17 Gm Packet PO Not Given DAILY MARY Quetiapine Fumarate 50 mg 12/10/21 21:00 12/29/21 20:29 Quetiapine 25 Mg Tablet PO 50 mg QPM MARY Administration Sodium Chloride 10 ml 12/04/21 21:17 12/18/21 20:03 Sodium Chloride Flush 0.9% 10 Ml Syringe IVP 10 ml PRN PRN Administration NEEDED PER PROVIDER ORDERS Sodium Chloride 10 ml 12/05/21 01:00 12/30/21 06:56 Sodium Chloride Flush 0.9% 10 Ml Syringe IVP 10 ml 0100,0900,1700 MARY Administration Thiamine HCl 100 mg 12/04/21 09:00 12/29/21 10:26 Thiamine 100 Mg Tablet PO 100 mg DAILY MARY Administration - Lab Result Fish Bone Diagrams: 12/12/21 08:07 12/12/21 08:07 Subjective - Subjective Patient Reports: Resting Comfortably Objective Vital Signs: Vital Signs - 24 hr 12/29/21 12/30/21 15:49 08:00 Temperature 36.6 C 36.5 C Heart Rate [ 90 103 H Brachial] Respiratory 16 16 Rate Blood Pressure 128/90 H 130/82 H [Right Brachial artery] O2 Saturation 99 100 Oxygen O2 Source Room air I&O (Last 24 Hrs): Intake and Output Totals x24h 12/28/21 12/29/21 12/30/21 23:59 23:59 23:59 Intake Total 3410 2606 240 Balance 3410 2606 240 General: Alert, Cooperative, No acute distress HEENT: Atraumatic Neck: Supple Lymphatic: no adenopathy Neuro: Alert, Non Focal Cardiovascular: Regular rate, Normal S1, Normal S2 Respiratory: Chest non-tender, No respiratory distress Abdomen: Normal bowel sounds, Soft Extremities: Normal pulses - Results Results: Laboratory Results WBC 3.4 x10^3/uL (4.8-10.8) L 12/12/21 08:07 RBC 4.17 10^6/uL (4.70-6.10) L 12/12/21 08:07 Hgb 13.2 g/dL (14.0-18.0) L 12/12/21 08:07 Hct 40.3 % (42.0-52.0) L 12/12/21 08:07 MCV 96.6 fL (80.0-94.0) H 12/12/21 08:07 MCH 31.7 pg (27.0-31.0) H 12/12/21 08:07 MCHC 32.8 g/dL (32.0-36.0) 12/12/21 08:07 RDW 13.7 % (12.0-15.0) 12/12/21 08:07 Plt Count 146 10^3/uL (130-450) 12/12/21 08:07 MPV 12.8 fL (7.4-11.4) H 12/12/21 08:07 Neut # (Auto) 1.5 10^3/uL (1.5-6.6) 12/12/21 08:07 Lymph # (Auto) 1.4 10^3/uL (1.5-3.5) L 12/12/21 08:07 [place] # (Auto) 0.4 10^3/uL (0.0-1.0) 12/12/21 08:07 Eos # (Auto) 0.1 10^3/uL (0.0-0.7) 12/12/21 08:07 Baso # (Auto) 0.1 10^3/uL (0.0-0.1) 12/12/21 08:07 Absolute Nucleated RBC 0.00 x10^3/uL 12/12/21 08:07 Nucleated RBC % 0.0 /100WBC 12/12/21 08:07 PT 15.1 secs (9.9-12.6) H 12/04/21 23:33 INR 1.4 (0.8-1.2) H 12/04/21 23:33 APTT 24.8 secs (24.9-33.3) L 12/03/21 18:20 Sodium 135 mmol/L (135-145) 12/12/21 08:07 Potassium 3.8 mmol/L (3.5-5.0) 12/12/21 08:07 Chloride 101 mmol/L (101-111) 12/12/21 08:07 Carbon Dioxide 24 mmol/L (21-32) 12/12/21 08:07 Anion Gap 10.0 (6-13) 12/12/21 08:07 BUN 19 mg/dL (6-20) 12/12/21 08:07 Creatinine 0.7 mg/dL (0.6-1.2) 12/12/21 08:07 Estimated GFR (MDRD) 114 (>89) 12/12/21 08:07 Glucose 121 mg/dL (70-100) H 12/12/21 08:07 Calcium 8.7 mg/dL (8.5-10.3) 12/12/21 08:07 Phosphorus 3.6 mg/dL (2.5-4.6) 12/06/21 07:04 Magnesium 2.0 mg/dL (1.7-2.8) 12/06/21 07:04 Total Bilirubin 0.5 mg/dL (0.2-1.0) 12/12/21 08:07 Direct Bilirubin < 0.1 mg/dL (0.1-0.5) L 12/09/21 07:55 AST 149 IU/L (10-42) H 12/12/21 08:07 ALT 254 IU/L (10-60) H 12/12/21 08:07 Alkaline Phosphatase 80 IU/L (42-121) 12/12/21 08:07 Ammonia 12.5 umol/L (7-35) 12/08/21 07:54 Total Protein 7.1 g/dL (6.7-8.2) 12/12/21 08:07 Albumin 3.7 g/dL (3.2-5.5) 12/12/21 08:07 Globulin 3.4 g/dL (2.1-4.2) 12/12/21 08:07 Albumin/Globulin Ratio 1.1 (1.0-2.2) 12/12/21 08:07 Lipase 28 U/L (22-51) 12/06/21 07:04 Whole Bld Vitamin B1 TNP 12/04/21 16:52 TSH 1.25 uIU/mL (0.34-5.60) 12/03/21 18:20 Urine Color YELLOW 12/03/21 18:26 Urine Clarity CLEAR (CLEAR) 12/03/21 18:26 Urine pH 6.5 PH (5.0-7.5) 12/03/21 18:26 Ur Specific [place] 1.020 (1.002-1.030) 12/03/21 18:26 Urine Protein NEGATIVE mg/dL (NEGATIVE) 12/03/21 18:26 Urine Glucose (UA) NEGATIVE mg/dL (NEGATIVE) 12/03/21 18: Urine Ketones NEGATIVE mg/dL (NEGATIVE) 12/03/21 18:26 Urine Occult Blood NEGATIVE (NEGATIVE) 12/03/21 18:26 Urine Nitrite NEGATIVE (NEGATIVE) 12/03/21 18: Urine Bilirubin NEGATIVE (NEGATIVE) 12/03/21 18: Urine Urobilinogen 0.2 (NORMAL) E.U./dL (NORMAL) 12/03/21 18:26 Ur Leukocyte Esterase NEGATIVE (NEGATIVE) 12/03/21 18:26 Ur Microscopic Review NOT INDICATED 12/03/21 18: Urine Culture Comments NOT INDICATED 12/03/21 18:26 Nasal Adenovirus (PCR) NOT DETECTED 12/20/21 19:10 Nasal B. parapertussis DNA (PCR) NOT DETECTED 12/20/21 19:10 Nasal Coronavir 229E PCR NOT DETECTED 12/20/21 19:10 Nasal Coronavir HKU1 PCR NOT DETECTED 12/20/21 19:10 Nasal Coronavir NL63 PCR NOT DETECTED 12/20/21 19:10 Nasal Coronavir OC43 PCR NOT DETECTED 12/20/21 19:10 Nasal Enterovir/Rhinovir PCR NOT DETECTED 12/20/21 19:10 Nasal Influenza B PCR NOT DETECTED 12/20/21 19:10 Nasal Influenza A PCR NOT DETECTED 12/20/21 19:10 Nasal Parainfluen 1 PCR NOT DETECTED 12/20/21 19:10 Nasal Parainfluen 2 PCR NOT DETECTED 12/20/21 19:10 Nasal Parainfluen 3 PCR NOT DETECTED 12/20/21 19:10 Nasal Parainfluen 4 PCR NOT DETECTED 12/20/21 19:10 Nasal RSV (PCR) NOT DETECTED 12/20/21 19:10 Nasal B.pertussis DNA PCR NOT DETECTED 12/20/21 19:10 Nasal C.pneumoniae (PCR) NOT DETECTED 12/20/21 19:10 Juan Daniel Human Metapneumo PCR NOT DETECTED 12/20/21 19:10 Nasal M.pneumoniae (PCR) NOT DETECTED 12/20/21 19:10 Nasal SARS-CoV-2 (PCR) DETECTED A 12/20/21 19:10 Salicylates < 6.0 mg/dL 12/03/21 18:20 Urine Opiates Screen NEGATIVE (NEGATIVE) 12/03/21 18:26 Ur Oxycodone Screen NEGATIVE (NEGATIVE) 12/03/21 18:26 Urine Methadone Screen NEGATIVE (NEGATIVE) 12/03/21 18:26 Ur Propoxyphene Screen NEGATIVE (NEGATIVE) 12/03/21 18:26 Acetaminophen < 10 ug/mL (10-30) L 12/03/21 18:20 Ur Barbiturates Screen NEGATIVE (NEGATIVE) 12/03/21 18:26 Ur Tricyclics Screen NEGATIVE (NEGATIVE) 12/03/21 18:26 Ur Phencyclidine Scrn NEGATIVE (NEGATIVE) 12/03/21 18:26 Ur Amphetamine Screen NEGATIVE (NEGATIVE) 12/03/21 18:26 U Methamphetamines Scrn NEGATIVE (NEGATIVE) 12/03/21 18:26 U Benzodiazepines Scrn POSITIVE (NEGATIVE) H 12/03/21 18:26 Urine Cocaine Screen NEGATIVE (NEGATIVE) 12/03/21 18:26 U Cannabinoids Screen NEGATIVE (NEGATIVE) 12/03/21 18:26 Ethyl Alcohol < 5.0 mg/dL 12/03/21 18:20 Sepsis Event Note (H) - Evaluation Current Stage of Sepsis: Ruled out ABX Reporting Has patient been on IV antibiotics over the past 48 hours?: No Current Medications - Current Medications Current Medications: Active Medications Acetaminophen (Acetaminophen 325 Mg Tablet) 650 mg PO Q4HR PRN PRN Reason: Pain 1 to 4 Last Admin: 12/26/21 08:10 Dose: 650 mg Docusate Sodium (Docusate Sodium 250 Mg Capsule) 250 - 500 mg PO DAILY PRN PRN Reason: Constipation Haloperidol (Haloperidol 1 Mg Tablet) 2 mg PO DAILY [facility] Last Admin: 12/29/21 10:26 Dose: 2 mg Sodium Chloride (Normal Saline 0.9%) 250 mls @ 20 mls/hr IV Q24H PRN PRN Reason: TKO RATE Last Infusion: 12/05/21 23:05 Dose: Infused Magnesium Oxide (Magnesium Oxide 400 Mg Tablet) 400 mg PO DAILY [facility] Last Admin: 12/29/21 10:26 Dose: 400 mg Multivitamins (Multivitamin Tablet) 1 tab PO DAILY [facility] Last Admin: 12/29/21 10:26 Dose: 1 tab Nicotine (Nicotine 14 Mg Patch) 1 patch TOP DAILY [facility] Last Admin: 12/29/21 10:27 Dose: 1 patch Olanzapine (Olanzapine Odt 5 Mg Tablet) 5 mg TL HS [facility] Last Admin: 12/29/21 20:29 Dose: 5 mg Ondansetron HCl (Ondansetron 4 Mg/2 Ml Vial) 4 mg IVP Q6HR PRN PRN Reason: Nausea / Vomiting Polyethylene Glycol (Polyethylene Glycol 3350 17 Gm Packet) 17 gm PO DAILY [facility] Last Admin: 12/29/21 10:29 Dose: Not Given Quetiapine Fumarate (Quetiapine 25 Mg Tablet) 50 mg PO QPM [facility] Last Admin: 12/29/21 20:29 Dose: 50 mg Senna (Senna 8.6 Mg Tablet) 8.6 - 17.2 mg PO DAILY PRN PRN Reason: Constipation Sodium Chloride (Sodium Chloride Flush 0.9% 10 Ml Syringe) 10 ml IVP PRN PRN PRN Reason: NEEDED PER PROVIDER ORDERS Last Admin: 12/18/21 20:03 Dose: 10 ml Sodium Chloride (Sodium Chloride Flush 0.9% 10 Ml Syringe) 10 ml IVP 0100,0900,1700 [facility] Last Admin: 12/30/21 06:56 Dose: 10 ml Thiamine HCl (Thiamine 100 Mg Tablet) 100 mg PO DAILY [facility] Last Admin: 12/29/21 10:26 Dose: 100 mg Magnesium Oxide [Mag Ox] 400 mg PO DAILY 12/01/21 Multivitamin [Theragran] 1 each PO DAILY 12/01/21
[2021-12-30] MEDS: THIAMINE 100 MG TABLET PO SCH (11:27)
[2021-12-30] MEDS: haloperidoL 1 MG TABLET PO SCH (11:28)
[2021-12-30] MEDS: MULTIVITAMIN TABLET PO SCH (11:28)
[2021-12-30] MEDS: NICOTINE 14 MG PATCH TOP SCH (11:29)
[2021-12-30] MEDS: MAGNESIUM OXIDE 400 MG TABLET PO SCH (11:29)
[2021-12-30] MEDS: polyethylene glycoL 3350 17 GM PACKET PO SCH (11:31)
[2021-12-30] MEDS: QUEtiapine 25 MG TABLET PO SCH (19:40)
[2021-12-30] MEDS: OLANZapine ODT 5 MG TABLET TL SCH (19:40)
[2021-12-31] MEDS: SODIUM CHLORIDE FLUSH 0.9% 10 ML SYRINGE IVP SCH ×3 (03:44→20:15)
--- NOTE | 2021-12-31 08:08 | PROVIDER PROGRESS NOTE ---
Assessment/Plan - Problem List (1) Metabolic encephalopathy Assessment/Plan: 12/31 pt is alert and oriented plus 4 on today. he told me he had 7 sisters, he is only male in his siblings. he give me one of his sister Enrrique phone number, , he report she is living at [facility] close to [facility], hope I can call her. he is cooperative with staff and ate his all breakfast, and walk normally. continue consult with social service assistant for d/c planning, I will call pt's sister to update medical condition and care plan. (2) Wernicke-Korsakoff syndrome (alcoholic) Assessment/Plan: 12/31, pt continue improved. we will have OT cognitive test for pt today Pt continues improved. he walk at hallway without distress. he has been cooperative with staff. He is oriented to self, location, year, month and day of the week. He was treated with high-dose thiamine initially. We now continue him on daily supplementation. We are working on guardianship and placement. social service assistant was consulted for d/c planning. We are continuing Zyprexa and Haldol but we can look to potentially try and taper these off as his mentation continues to improve. (3) COVID-19 Impression: pt is asymptomatic. His first positive test for December 03 and he is asymptomatic. He is off of precautions. (4) Homeless single person Impression: This is made disposition difficult and he requires guardianship. They are working with social work regarding this. This would be a prolonged process and he will likely be hospitalized for extended period of time. (5) Alcohol abuse Impression: his librium is tapered off now. He initially went through alcohol withdrawal but this is now resolved. We are continuing thiamine supplementation daily. - Current Meds Current Meds: Current Medications Generic Name Dose Route Start Last Admin Trade Name Freq PRN Reason Stop Dose Admin Acetaminophen 650 mg 12/04/21 21:17 12/26/21 08:10 Acetaminophen 325 Mg Tablet PO 650 mg Q4HR PRN Administration Pain 1 to 4 Haloperidol 2 mg 12/19/21 21:00 12/30/21 11:28 Haloperidol 1 Mg Tablet PO 2 mg DAILY MARY Administration Sodium Chloride 250 mls @ 20 mls/hr 12/05/21 14:51 12/05/21 23:05 Normal Saline 0.9% IV Infused Q24H PRN Infusion TKO RATE Magnesium Oxide 400 mg 12/05/21 09:00 12/30/21 11:29 Magnesium Oxide 400 Mg Tablet PO 400 mg DAILY MARY Administration Multivitamins 1 tab 12/05/21 09:00 12/30/21 11:28 Multivitamin Tablet PO 1 tab DAILY MARY Administration Nicotine 1 patch 12/12/21 01:01 12/30/21 11:29 Nicotine 14 Mg Patch TOP 1 patch DAILY MARY Administration Olanzapine 5 mg 12/07/21 21:00 12/30/21 19:40 Olanzapine Odt 5 Mg Tablet TL 5 mg HS MARY Administration Polyethylene Glycol 17 gm 12/09/21 14:00 12/30/21 11:31 Polyethylene Glycol 3350 17 Gm Packet PO Not Given DAILY MARY Quetiapine Fumarate 50 mg 12/10/21 21:00 12/30/21 19:40 Quetiapine 25 Mg Tablet PO 50 mg QPM MARY Administration Sodium Chloride 10 ml 12/04/21 21:17 12/18/21 20:03 Sodium Chloride Flush 0.9% 10 Ml Syringe IVP 10 ml PRN PRN Administration NEEDED PER PROVIDER ORDERS Sodium Chloride 10 ml 12/05/21 01:00 12/31/21 03:44 Sodium Chloride Flush 0.9% 10 Ml Syringe IVP Not Given 0100,0900,1700 [facility] Thiamine HCl 100 mg 12/04/21 09:00 12/30/21 11:27 Thiamine 100 Mg Tablet PO 100 mg DAILY MARY Administration - Lab Result Fish Bone Diagrams: 12/12/21 08:07 12/12/21 08:07 Subjective - Subjective Patient Reports: Resting Comfortably Nursing Reports: No Complaints Objective Vital Signs: Vital Signs - 24 hr 12/30/21 12/31/21 15:21 06:25 Temperature 36.5 C 36.4 C L Heart Rate [ 86 81 Brachial] Respiratory 16 15 Rate Blood Pressure 127/81 H 132/95 H [Right Brachial artery] O2 Saturation 96 99 Oxygen O2 Source Room air I&O (Last 24 Hrs): Intake and Output Totals x24h 12/29/21 12/30/21 12/31/21 23:59 23:59 23:59 Intake Total 2606 1270 Balance 2606 1270 General: Alert, Oriented x3, Cooperative, No acute distress HEENT: Atraumatic Neck: Supple Lymphatic: no adenopathy Neuro: Alert, Non Focal, Oriented Times 3 Cardiovascular: Regular rate, Normal S1, Normal S2 Respiratory: Chest non-tender, No respiratory distress Abdomen: Normal bowel sounds, Soft, No tenderness Extremities: Normal pulses - Results Results: Laboratory Results WBC 3.4 x10^3/uL (4.8-10.8) L 12/12/21 08:07 RBC 4.17 10^6/uL (4.70-6.10) L 12/12/21 08:07 Hgb 13.2 g/dL (14.0-18.0) L 12/12/21 08:07 Hct 40.3 % (42.0-52.0) L 12/12/21 08:07 MCV 96.6 fL (80.0-94.0) H 12/12/21 08:07 MCH 31.7 pg (27.0-31.0) H 12/12/21 08:07 MCHC 32.8 g/dL (32.0-36.0) 12/12/21 08:07 RDW 13.7 % (12.0-15.0) 12/12/21 08:07 Plt Count 146 10^3/uL (130-450) 12/12/21 08:07 MPV 12.8 fL (7.4-11.4) H 12/12/21 08:07 Neut # (Auto) 1.5 10^3/uL (1.5-6.6) 12/12/21 08:07 Lymph # (Auto) 1.4 10^3/uL (1.5-3.5) L 12/12/21 08:07 [place] # (Auto) 0.4 10^3/uL (0.0-1.0) 12/12/21 08:07 Eos # (Auto) 0.1 10^3/uL (0.0-0.7) 12/12/21 08:07 Baso # (Auto) 0.1 10^3/uL (0.0-0.1) 12/12/21 08:07 Absolute Nucleated RBC 0.00 x10^3/uL 12/12/21 08:07 Nucleated RBC % 0.0 /100WBC 12/12/21 08:07 PT 15.1 secs (9.9-12.6) H 12/04/21 23:33 INR 1.4 (0.8-1.2) H 12/04/21 23:33 APTT 24.8 secs (24.9-33.3) L 12/03/21 18:20 Sodium 135 mmol/L (135-145) 12/12/21 08:07 Potassium 3.8 mmol/L (3.5-5.0) 12/12/21 08:07 Chloride 101 mmol/L (101-111) 12/12/21 08:07 Carbon Dioxide 24 mmol/L (21-32) 12/12/21 08:07 Anion Gap 10.0 (6-13) 12/12/21 08:07 BUN 19 mg/dL (6-20) 12/12/21 08:07 Creatinine 0.7 mg/dL (0.6-1.2) 12/12/21 08:07 Estimated GFR (MDRD) 114 (>89) 12/12/21 08:07 Glucose 121 mg/dL (70-100) H 12/12/21 08:07 Calcium 8.7 mg/dL (8.5-10.3) 12/12/21 08:07 Phosphorus 3.6 mg/dL (2.5-4.6) 12/06/21 07:04 Magnesium 2.0 mg/dL (1.7-2.8) 12/06/21 07:04 Total Bilirubin 0.5 mg/dL (0.2-1.0) 12/12/21 08:07 Direct Bilirubin < 0.1 mg/dL (0.1-0.5) L 12/09/21 07:55 AST 149 IU/L (10-42) H 12/12/21 08:07 ALT 254 IU/L (10-60) H 12/12/21 08:07 Alkaline Phosphatase 80 IU/L (42-121) 12/12/21 08:07 Ammonia 12.5 umol/L (7-35) 12/08/21 07:54 Total Protein 7.1 g/dL (6.7-8.2) 12/12/21 08:07 Albumin 3.7 g/dL (3.2-5.5) 12/12/21 08:07 Globulin 3.4 g/dL (2.1-4.2) 12/12/21 08:07 Albumin/Globulin Ratio 1.1 (1.0-2.2) 12/12/21 08:07 Lipase 28 U/L (22-51) 12/06/21 07:04 Whole Bld Vitamin B1 TNP 12/04/21 16:52 TSH 1.25 uIU/mL (0.34-5.60) 12/03/21 18:20 Urine Color YELLOW 12/03/21 18:26 Urine Clarity CLEAR (CLEAR) 12/03/21 18:26 Urine pH 6.5 PH (5.0-7.5) 12/03/21 18:26 Ur Specific [place] 1.020 (1.002-1.030) 12/03/21 18:26 Urine Protein NEGATIVE mg/dL (NEGATIVE) 12/03/21 18:26 Urine Glucose (UA) NEGATIVE mg/dL (NEGATIVE) 12/03/21 18:26 Urine Ketones NEGATIVE mg/dL (NEGATIVE) 12/03/21 18:26 Urine Occult Blood NEGATIVE (NEGATIVE) 12/03/21 18:26 Urine Nitrite NEGATIVE (NEGATIVE) 12/03/21 18:26 Urine Bilirubin NEGATIVE (NEGATIVE) 12/03/21 18:26 Urine Urobilinogen 0.2 (NORMAL) E.U./dL (NORMAL) 12/03/21 18:26 Ur Leukocyte Esterase NEGATIVE (NEGATIVE) 12/03/21 18:26 Ur Microscopic Review NOT INDICATED 12/03/21 18:26 Urine Culture Comments NOT INDICATED 12/03/21 18:26 Nasal Adenovirus (PCR) NOT DETECTED 12/20/21 19:10 Nasal B. parapertussis DNA (PCR) NOT DETECTED 12/20/21 19:10 Nasal Coronavir 229E PCR NOT DETECTED 12/20/21 19:10 Nasal Coronavir HKU1 PCR NOT DETECTED 12/20/21 19:10 Nasal Coronavir NL63 PCR NOT DETECTED 12/20/21 19:10 Nasal Coronavir OC43 PCR NOT DETECTED 12/20/21 19:10 Nasal Enterovir/Rhinovir PCR NOT DETECTED 12/20/21 19:10 Nasal Influenza B PCR NOT DETECTED 12/20/21 19:10 Nasal Influenza A PCR NOT DETECTED 12/20/21 19:10 Nasal Parainfluen 1 PCR NOT DETECTED 12/20/21 19:10 Nasal Parainfluen 2 PCR NOT DETECTED 12/20/21 19:10 Nasal Parainfluen 3 PCR NOT DETECTED 12/20/21 19:10 Nasal Parainfluen 4 PCR NOT DETECTED 12/20/21 19:10 Nasal RSV (PCR) NOT DETECTED 12/20/21 19:10 Nasal B.pertussis DNA PCR NOT DETECTED 12/20/21 19:10 Nasal C.pneumoniae (PCR) NOT DETECTED 12/20/21 19:10 Juan Danile Human Metapneumo PCR NOT DETECTED 12/20/21 19:10 Nasal M.pneumoniae (PCR) NOT DETECTED 12/20/21 19:10 Nasal SARS-CoV-2 (PCR) DETECTED A 12/20/21 19:10 Salicylates < 6.0 mg/dL 12/03/21 18:20 Urine Opiates Screen NEGATIVE (NEGATIVE) 12/03/21 18:26 Ur Oxycodone Screen NEGATIVE (NEGATIVE) 12/03/21 18:26 Urine Methadone Screen NEGATIVE (NEGATIVE) 12/03/21 18:26 Ur Propoxyphene Screen NEGATIVE (NEGATIVE) 12/03/21 18:26 Acetaminophen < 10 ug/mL (10-30) L 12/03/21 18:20 Ur Barbiturates Screen NEGATIVE (NEGATIVE) 12/03/21 18:26 Ur Tricyclics Screen NEGATIVE (NEGATIVE) 12/03/21 18:26 Ur Phencyclidine Scrn NEGATIVE (NEGATIVE) 12/03/21 18:26 Ur Amphetamine Screen NEGATIVE (NEGATIVE) 12/03/21 18:26 U Methamphetamines Scrn NEGATIVE (NEGATIVE) 12/03/21 18:26 U Benzodiazepines Scrn POSITIVE (NEGATIVE) H 12/03/21 18:26 Urine Cocaine Screen NEGATIVE (NEGATIVE) 12/03/21 18:26 U Cannabinoids Screen NEGATIVE (NEGATIVE) 12/03/21 18:26 Ethyl Alcohol < 5.0 mg/dL 12/03/21 18:20 Sepsis Event Note (H) - Evaluation Current Stage of Sepsis: Ruled out ABX Reporting Has patient been on IV antibiotics over the past 48 hours?: No Current Medications - Current Medications Current Medications: Active Medications Acetaminophen (Acetaminophen 325 Mg Tablet) 650 mg PO Q4HR PRN PRN Reason: Pain 1 to 4 Last Admin: 12/26/21 08:10 Dose: 650 mg Docusate Sodium (Docusate Sodium 250 Mg Capsule) 250 - 500 mg PO DAILY PRN PRN Reason: Constipation Haloperidol (Haloperidol 1 Mg Tablet) 2 mg PO DAILY [facility] Last Admin: 12/30/21 11:28 Dose: 2 mg Sodium Chloride (Normal Saline 0.9%) 250 mls @ 20 mls/hr IV Q24H PRN PRN Reason: TKO RATE Last Infusion: 12/05/21 23:05 Dose: Infused Magnesium Oxide (Magnesium Oxide 400 Mg Tablet) 400 mg PO DAILY [facility] Last Admin: 12/30/21 11:29 Dose: 400 mg Multivitamins (Multivitamin Tablet) 1 tab PO DAILY [facility] Last Admin: 12/30/21 11:28 Dose: 1 tab Nicotine (Nicotine 14 Mg Patch) 1 patch TOP DAILY [facility] Last Admin: 12/30/21 11:29 Dose: 1 patch Olanzapine (Olanzapine Odt 5 Mg Tablet) 5 mg TL HS [facility] Last Admin: 12/30/21 19:40 Dose: 5 mg Ondansetron HCl (Ondansetron 4 Mg/2 Ml Vial) 4 mg IVP Q6HR PRN PRN Reason: Nausea / Vomiting Polyethylene Glycol (Polyethylene Glycol 3350 17 Gm Packet) 17 gm PO DAILY [facility] Last Admin: 12/30/21 11:31 Dose: Not Given Quetiapine Fumarate (Quetiapine 25 Mg Tablet) 50 mg PO QPM [facility] Last Admin: 12/30/21 19:40 Dose: 50 mg Senna (Senna 8.6 Mg Tablet) 8.6 - 17.2 mg PO DAILY PRN PRN Reason: Constipation Sodium Chloride (Sodium Chloride Flush 0.9% 10 Ml Syringe) 10 ml IVP PRN PRN PRN Reason: NEEDED PER PROVIDER ORDERS Last Admin: 12/18/21 20:03 Dose: 10 ml Sodium Chloride (Sodium Chloride Flush 0.9% 10 Ml Syringe) 10 ml IVP 0100,0900,1700 [facility] Last Admin: 12/31/21 03:44 Dose: Not Given Thiamine HCl (Thiamine 100 Mg Tablet) 100 mg PO DAILY [facility] Last Admin: 12/30/21 11:27 Dose: 100 mg Magnesium Oxide [Mag Ox] 400 mg PO DAILY 12/01/21 Multivitamin [Theragran] 1 each PO DAILY 12/01/21
[2021-12-31] MEDS: NICOTINE 14 MG PATCH TOP SCH (08:58)
[2021-12-31] MEDS: THIAMINE 100 MG TABLET PO SCH (08:58)
[2021-12-31] MEDS: MULTIVITAMIN TABLET PO SCH (08:58)
[2021-12-31] MEDS: haloperidoL 1 MG TABLET PO SCH (08:58)
[2021-12-31] MEDS: MAGNESIUM OXIDE 400 MG TABLET PO SCH (08:58)
[2021-12-31] MEDS: polyethylene glycoL 3350 17 GM PACKET PO SCH (08:59)
[2021-12-31] MEDS: QUEtiapine 25 MG TABLET PO SCH (20:14)
[2021-12-31] MEDS: OLANZapine ODT 5 MG TABLET TL SCH (20:14)
[2022-01-01] MEDS: SODIUM CHLORIDE FLUSH 0.9% 10 ML SYRINGE IVP SCH ×3 (00:55→20:54)
[2022-01-01] MEDS: polyethylene glycoL 3350 17 GM PACKET PO SCH (09:02)
[2022-01-01] MEDS: NICOTINE 14 MG PATCH TOP SCH (09:03)
[2022-01-01] MEDS: THIAMINE 100 MG TABLET PO SCH (09:04)
[2022-01-01] MEDS: haloperidoL 1 MG TABLET PO SCH (09:04)
[2022-01-01] MEDS: MAGNESIUM OXIDE 400 MG TABLET PO SCH (09:04)
[2022-01-01] MEDS: MULTIVITAMIN TABLET PO SCH (09:04)
--- NOTE | 2022-01-01 10:21 | PROVIDER PROGRESS NOTE ---
Assessment/Plan - Problem List (1) Metabolic encephalopathy Assessment/Plan: 01/01 resolved. pt still is alert and oriented, ate his breakfast, walk without distress. 12/31 pt is alert and oriented plus 4 on today. he told me he had 7 sisters, he is only male in his siblings. he give me one of his sister Enrrique phone number, , he report she is living at [facility] close to [facility], leo I c an call her. he is cooperative with staff and ate his all breakfast, and walk normally. continue consult with social worker clinical for d/c planning, I will call pt's sister to update medical condition and care plan. (2) Wernicke-Korsakoff syndrome (alcoholic) Assessment/Plan: 01/01, pt had OT evaluation, Pt scored 16/30, which indicates moderate-severe cognitive impairment. pt show shift of his attention to answer questions and present cognitive deficit when ask further questions. When he reported he was around with bad friends at his living environment to affect him, I asked what kind of influence he got and why he think his friends are bad, he could not a nswer and he shift to attention to other topic. continue consult with social worker clinical for disposition planning. Per social worker clinical, pt is pending to have guardianship. 12/31, pt continue improved. we will have OT cognitive test for pt today Pt continues improved. he walk at hallway without distress. he has been cooperative with staff. He is oriented to self, location, year, month and day of the week. He was treated with high-dose thiamine initially. We now continue him on daily supplementation. We are working on guardianship and placement. social worker clinical was consulted for d/c planning. We are continuing Zyprexa and Haldol but we can look to potentially try and taper these off as his mentation continues to improve. (3) COVID-19 Impression: pt is asymptomatic. His first positive test for December 03 and he is asymptomatic. He is off of precautions. (4) Homeless single person Impression: This is made disposition difficult and he requires guardianship. They are working with social work regarding this. This would be a prolonged process and he will likely be hospitalized for extended period of time. (5) Alcohol abuse Impression: his librium is tapered off now. He initially went through alcohol withdrawal but this is now resolved. We are continuing thiamine supplementation daily. - Current Meds Current Meds: Current Medications Generic Name Dose Route Start Last Admin Trade Name Lazaroq PRN Reason Stop Dose Admin Acetaminophen 650 mg 12/04/21 21:17 12/26/21 08:10 Acetaminophen 325 Mg Tablet PO 650 mg Q4HR PRN Administration Pain 1 to 4 Haloperidol 2 mg 12/19/21 21:00 01/01/22 09:04 Haloperidol 1 Mg Tablet PO 2 mg DAILY MARY Administration Sodium Chloride 250 mls @ 20 mls/hr 12/05/21 14:51 12/05/21 23:05 Normal Saline 0.9% IV Infused Q24H PRN Infusion TKO RATE Magnesium Oxide 400 mg 12/05/21 09:00 01/01/22 09:04 Magnesium Oxide 400 Mg Tablet PO 400 mg DAILY MARY Administration Multivitamins 1 tab 12/05/21 09:00 01/01/22 09:04 Multivitamin Tablet PO 1 tab DAILY MARY Administration Nicotine 1 patch 12/12/21 01:01 01/01/22 09:03 Nicotine 14 Mg Patch TOP 1 patch DAILY MARY Administration Olanzapine 5 mg 12/07/21 21:00 12/31/21 20:14 Olanzapine Odt 5 Mg Tablet TL 5 mg HS MARY Administration Polyethylene Glycol 17 gm 12/09/21 14:00 01/01/22 09:02 Polyethylene Glycol 3350 17 Gm Packet PO 17 gm DAILY MARY Administration Quetiapine Fumarate 50 mg 12/10/21 21:00 12/31/21 20:14 Quetiapine 25 Mg Tablet PO 50 mg QPM MARY Administration Sodium Chloride 10 ml 12/04/21 21:17 12/18/21 20:03 Sodium Chloride Flush 0.9% 10 Ml Syringe IVP 10 ml PRN PRN Administration NEEDED PER PROVIDER ORDERS Sodium Chloride 10 ml 12/05/21 01:00 01/01/22 09:04 Sodium Chloride Flush 0.9% 10 Ml Syringe IVP 10 ml 0100,0900,1700 MARY Administration Thiamine HCl 100 mg 12/04/21 09:00 01/01/22 09:04 Thiamine 100 Mg Tablet PO 100 mg DAILY MARY Administration - Lab Result Fish Bone Diagrams: 12/12/21 08:07 12/12/21 08:07 Subjective - Subjective Patient Reports: Resting Comfortably Objective Vital Signs: Vital Signs - 24 hr 12/31/21 01/01/22 01/01/22 16:00 05:46 08:00 Temperature 36.5 C 36.7 C 36.6 C Heart Rate [ 91 90 Brachial] Heart Rate [ 89 Radial] Respiratory 20 18 16 Rate Blood Pressure 140/86 H 130/99 H [Right Brachial artery] Blood Pressure 136/75 H [Right Radial artery] O2 Saturation 99 97 98 Oxygen O2 Source Room air I&O (Last 24 Hrs): Intake and Output Totals x24h 12/30/21 12/31/21 01/01/22 23:59 23:59 23:59 Intake Total 1270 1680 540 Balance 1270 1680 540 General: Alert, Cooperative, No acute distress HEENT: Atraumatic Neck: Supple Lymphatic: no adenopathy Neuro: Alert, Non Focal Cardiovascular: Regular rate, Normal S1, Normal S2 Respiratory: Chest non-tender, No respiratory distress Abdomen: Normal bowel sounds, Soft Extremities: Normal pulses - Results Results: Laboratory Results WBC 3.4 x10^3/uL (4.8-10.8) L 12/12/21 08:07 RBC 4.17 10^6/uL (4.70-6.10) L 12/12/21 08:07 Hgb 13.2 g/dL (14.0-18.0) L 12/12/21 08:07 Hct 40.3 % (42.0-52.0) L 12/12/21 08:07 MCV 96.6 fL (80.0-94.0) H 12/12/21 08:07 MCH 31.7 pg (27.0-31.0) H 12/12/21 08:07 MCHC 32.8 g/dL (32.0-36.0) 12/12/21 08:07 RDW 13.7 % (12.0-15.0) 12/12/21 08:07 Plt Count 146 10^3/uL (130-450) 12/12/21 08:07 MPV 12.8 fL (7.4-11.4) H 12/12/21 08:07 Neut # (Auto) 1.5 10^3/uL (1.5-6.6) 12/12/21 08:07 Lymph # (Auto) 1.4 10^3/uL (1.5-3.5) L 12/12/21 08:07 [place] # (Auto) 0.4 10^3/uL (0.0-1.0) 12/12/21 08:07 Eos # (Auto) 0.1 10^3/uL (0.0-0.7) 12/12/21 08:07 Baso # (Auto) 0.1 10^3/uL (0.0-0.1) 12/12/21 08:07 Absolute Nucleated RBC 0.00 x10^3/uL 12/12/21 08:07 Nucleated RBC % 0.0 /100WBC 12/12/21 08:07 PT 15.1 secs (9.9-12.6) H 12/04/21 23:33 INR 1.4 (0.8-1.2) H 12/04/21 23:33 APTT 24.8 secs (24.9-33.3) L 12/03/21 18:20 Sodium 135 mmol/L (135-145) 12/12/21 08:07 Potassium 3.8 mmol/L (3.5-5.0) 12/12/21 08:07 Chloride 101 mmol/L (101-111) 12/12/21 08:07 Carbon Dioxide 24 mmol/L (21-32) 12/12/21 08:07 Anion Gap 10.0 (6-13) 12/12/21 08:07 BUN 19 mg/dL (6-20) 12/12/21 08:07 Creatinine 0.7 mg/dL (0.6-1.2) 12/12/21 08:07 Estimated GFR (MDRD) 114 (>89) 12/12/21 08:07 Glucose 121 mg/dL (70-100) H 12/12/21 08:07 Calcium 8.7 mg/dL (8.5-10.3) 12/12/21 08:07 Phosphorus 3.6 mg/dL (2.5-4.6) 12/06/21 07:04 Magnesium 2.0 mg/dL (1.7-2.8) 12/06/21 07:04 Total Bilirubin 0.5 mg/dL (0.2-1.0) 12/12/21 08:07 Direct Bilirubin < 0.1 mg/dL (0.1-0.5) L 12/09/21 07:55 AST 149 IU/L (10-42) H 12/12/21 08:07 ALT 254 IU/L (10-60) H 12/12/21 08:07 Alkaline Phosphatase 80 IU/L (42-121) 12/12/21 08:07 Ammonia 12.5 umol/L (7-35) 12/08/21 07:54 Total Protein 7.1 g/dL (6.7-8.2) 12/12/21 08:07 Albumin 3.7 g/dL (3.2-5.5) 12/12/21 08:07 Globulin 3.4 g/dL (2.1-4.2) 12/12/21 08:07 Albumin/Globulin Ratio 1.1 (1.0-2.2) 12/12/21 08:07 Lipase 28 U/L (22-51) 12/06/21 07:04 Whole Bld Vitamin B1 TNP 12/04/21 16:52 TSH 1.25 uIU/mL (0.34-5.60) 12/03/21 18:20 Urine Color YELLOW 12/03/21 18:26 Urine Clarity CLEAR (CLEAR) 12/03/21 18:26 Urine pH 6.5 PH (5.0-7.5) 12/03/21 18:26 Ur Specific [place] 1.020 (1.002-1.030) 12/03/21 18:26 Urine Protein NEGATIVE mg/dL (NEGATIVE) 12/03/21 18:26 Urine Glucose (UA) NEGATIVE mg/dL (NEGATIVE) 12/03/21 18:26 Urine Ketones NEGATIVE mg/dL (NEGATIVE) 12/03/21 18:26 Urine Occult Blood NEGATIVE (NEGATIVE) 12/03/21 18:26 Urine Nitrite NEGATIVE (NEGATIVE) 12/03/21 18:26 Urine Bilirubin NEGATIVE (NEGATIVE) 12/03/21 18:26 Urine Urobilinogen 0.2 (NORMAL) E.U./dL (NORMAL) 12/03/21 18:26 Ur Leukocyte Esterase NEGATIVE (NEGATIVE) 12/03/21 18:26 Ur Microscopic Review NOT INDICATED 12/03/21 18:26 Urine Culture Comments NOT INDICATED 12/03/21 18:26 Nasal Adenovirus (PCR) NOT DETECTED 12/20/21 19:10 Nasal B. parapertussis DNA (PCR) NOT DETECTED 12/20/21 19:10 Nasal Coronavir 229E PCR NOT DETECTED 12/20/21 19:10 Nasal Coronavir HKU1 PCR NOT DETECTED 12/20/21 19:10 Nasal Coronavir NL63 PCR NOT DETECTED 12/20/21 19:10 Nasal Coronavir OC43 PCR NOT DETECTED 12/20/21 19:10 Nasal Enterovir/Rhinovir PCR NOT DETECTED 12/20/21 19:10 Nasal Influenza B PCR NOT DETECTED 12/20/21 19:10 Nasal Influenza A PCR NOT DETECTED 12/20/21 19:10 Nasal Parainfluen 1 PCR NOT DETECTED 12/20/21 19:10 Nasal Parainfluen 2 PCR NOT DETECTED 12/20/21 19:10 Nasal Parainfluen 3 PCR NOT DETECTED 12/20/21 19:10 Nasal Parainfluen 4 PCR NOT DETECTED 12/20/21 19:10 Nasal RSV (PCR) NOT DETECTED 12/20/21 19:10 Nasal B.pertussis DNA PCR NOT DETECTED 12/20/21 19:10 Nasal C.pneumoniae (PCR) NOT DETECTED 12/20/21 19:10 Juan Daniel Human Metapneumo PCR NOT DETECTED 12/20/21 19:10 Nasal M.pneumoniae (PCR) NOT DETECTED 12/20/21 19:10 Nasal SARS-CoV-2 (PCR) DETECTED A 12/20/21 19:10 Salicylates < 6.0 mg/dL 12/03/21 18:20 Urine Opiates Screen NEGATIVE (NEGATIVE) 12/03/21 18:26 Ur Oxycodone Screen NEGATIVE (NEGATIVE) 12/03/21 18:26 Urine Methadone Screen NEGATIVE (NEGATIVE) 12/03/21 18:26 Ur Propoxyphene Screen NEGATIVE (NEGATIVE) 12/03/21 18:26 Acetaminophen < 10 ug/mL (10-30) L 12/03/21 18:20 Ur Barbiturates Screen NEGATIVE (NEGATIVE) 12/03/21 18:26 Ur Tricyclics Screen NEGATIVE (NEGATIVE) 12/03/21 18:26 Ur Phencyclidine Scrn NEGATIVE (NEGATIVE) 12/03/21 18:26 Ur Amphetamine Screen NEGATIVE (NEGATIVE) 12/03/21 18:26 U Methamphetamines Scrn NEGATIVE (NEGATIVE) 12/03/21 18:26 U Benzodiazepines Scrn POSITIVE (NEGATIVE) H 12/03/21 18:26 Urine Cocaine Screen NEGATIVE (NEGATIVE) 12/03/21 18:26 U Cannabinoids Screen NEGATIVE (NEGATIVE) 12/03/21 18:26 Ethyl Alcohol < 5.0 mg/dL 12/03/21 18:20 Sepsis Event Note (H) - Evaluation Current Stage of Sepsis: Ruled out ABX Reporting Has patient been on IV antibiotics over the past 48 hours?: No Current Medications - Current Medications Current Medications: Active Medications Acetaminophen (Acetaminophen 325 Mg Tablet) 650 mg PO Q4HR PRN PRN Reason: Pain 1 to 4 Last Admin: 12/26/21 08:10 Dose: 650 mg Docusate Sodium (Docusate Sodium 250 Mg Capsule) 250 - 500 mg PO DAILY PRN PRN Reason: Constipation Haloperidol (Haloperidol 1 Mg Tablet) 2 mg PO DAILY [facility] Last Admin: 01/01/22 09:04 Dose: 2 mg Sodium Chloride (Normal Saline 0.9%) 250 mls @ 20 mls/hr IV Q24H PRN PRN Reason: TKO RATE Last Infusion: 12/05/21 23:05 Dose: Infused Magnesium Oxide (Magnesium Oxide 400 Mg Tablet) 400 mg PO DAILY [facility] Last Admin: 01/01/22 09:04 Dose: 400 mg Multivitamins (Multivitamin Tablet) 1 tab PO DAILY [facility] Last Admin: 01/01/22 09:04 Dose: 1 tab Nicotine (Nicotine 14 Mg Patch) 1 patch TOP DAILY [facility] Last Admin: 01/01/22 09:03 Dose: 1 patch Olanzapine (Olanzapine Odt 5 Mg Tablet) 5 mg TL HS [facility] Last Admin: 12/31/21 20:14 Dose: 5 mg Ondansetron HCl (Ondansetron 4 Mg/2 Ml Vial) 4 mg IVP Q6HR PRN PRN Reason: Nausea / Vomiting Polyethylene Glycol (Polyethylene Glycol 3350 17 Gm Packet) 17 gm PO DAILY [facility] Last Admin: 01/01/22 09:02 Dose: 17 gm Quetiapine Fumarate (Quetiapine 25 Mg Tablet) 50 mg PO QPM [facility] Last Admin: 12/31/21 20:14 Dose: 50 mg Senna (Senna 8.6 Mg Tablet) 8.6 - 17.2 mg PO DAILY PRN PRN Reason: Constipation Sodium Chloride (Sodium Chloride Flush 0.9% 10 Ml Syringe) 10 ml IVP PRN PRN PRN Reason: NEEDED PER PROVIDER ORDERS Last Admin: 12/18/21 20:03 Dose: 10 ml Sodium Chloride (Sodium Chloride Flush 0.9% 10 Ml Syringe) 10 ml IVP 0100,0900,1700 [facility] Last Admin: 01/01/22 09:04 Dose: 10 ml Thiamine HCl (Thiamine 100 Mg Tablet) 100 mg PO DAILY [facility] Last Admin: 01/01/22 09:04 Dose: 100 mg Magnesium Oxide [Mag Ox] 400 mg PO DAILY 12/01/21 Multivitamin [Theragran] 1 each PO DAILY 12/01/21
[2022-01-01] MEDS: OLANZapine ODT 5 MG TABLET TL SCH (20:53)
[2022-01-01] MEDS: QUEtiapine 25 MG TABLET PO SCH (20:53)
[2022-01-02] MEDS: SODIUM CHLORIDE FLUSH 0.9% 10 ML SYRINGE IVP SCH ×3 (00:08→20:40)
[2022-01-02] MEDS: MULTIVITAMIN TABLET PO SCH (08:18)
[2022-01-02] MEDS: haloperidoL 1 MG TABLET PO SCH (08:18)
[2022-01-02] MEDS: MAGNESIUM OXIDE 400 MG TABLET PO SCH (08:18)
[2022-01-02] MEDS: THIAMINE 100 MG TABLET PO SCH (08:18)
[2022-01-02] MEDS: NICOTINE 14 MG PATCH TOP SCH (08:18)
[2022-01-02] MEDS: polyethylene glycoL 3350 17 GM PACKET PO SCH (08:21)
--- NOTE | 2022-01-02 10:35 | PROVIDER PROGRESS NOTE ---
Assessment/Plan - Problem List (1) Metabolic encephalopathy Assessment/Plan: 01/02 stable, cooperative with staff for his care in hospital, ate his breakfast, and walk without distress. pt report he had two bowel movement on today. He almost finish reading of his book. Today There is a meeting for pt's sabine mendoza and safety disposition planning, we will followup. 01/01 resolved. pt still is alert and oriented, ate his breakfast, walk without distress. 12/31 pt is alert and oriented plus 4 on today. he told me he had 7 sisters, he is only male in his siblings. he give me one of his sister Enrrique phone number, , he report she is living at [facility], hope I can call her. he is cooperative with staff and ate his all breakfast, and walk normally. continue consult with social work professor for d/c planning, I will call pt's sister to update medical condition and care plan. (2) Wernicke-Korsakoff syndrome (alcoholic) Assessment/Plan: 01/02 stable, we continue PO vitamin B1 daily for pt 01/01, pt had OT evaluation, Pt scored 16/30, which indicates moderate-severe cognitive impairment. pt show shift of his attention to answer questions and present cognitive deficit when ask further questions. When he reported he was around with bad friends at his living environment to affect him, I asked what kind of influence he got and why he think his friends are bad, he could not answer and he shift to attention to other topic. continue consult with social work professor for disposition planning. Per social work professor, pt is pending to have yumiko resendiz. 12/31, pt continue improved. we will have OT cognitive test for pt today Pt continues improved. he walk at hallway without distress. he has been cooperative with staff. He is oriented to self, location, year, month and day of the week. He was treated with high-dose thiamine initially. We now continue him on daily supplementation. We are working on guardianship and placement. social work professor was consulted for d/c planning. We are continuing Zyprexa and Haldol but we can look to potentially try and taper these off as his mentation continues to improve. (3) COVID-19 Impression: pt is asymptomatic. His first positive test for December 03 and he is asymptomatic. He is off of precautions. (4) Homeless single person Impression: This is made disposition difficult and he requires guardianship. They are working with social work regarding this. This would be a prolonged process and he will likely be hospitalized for extended period of time. (5) Alcohol abuse Impression: his librium is tapered off now. He initially went through alcohol withdrawal but this is now resolved. We are continuing thiamine supplementation daily. - Current Meds Current Meds: Current Medications Generic Name Dose Route Start Last Admin Trade Name Debby PRN Reason Stop Dose Admin Acetaminophen 650 mg 12/04/21 21:17 12/26/21 08:10 Acetaminophen 325 Mg Tablet PO 650 mg Q4HR PRN Administration Pain 1 to 4 Haloperidol 2 mg 12/19/21 21:00 01/02/22 08:18 Haloperidol 1 Mg Tablet PO 2 mg DAILY MARY Administration Sodium Chloride 250 mls @ 20 mls/hr 12/05/21 14:51 12/05/21 23:05 Normal Saline 0.9% IV Infused Q24H PRN Infusion TKO RATE Magnesium Oxide 400 mg 12/05/21 09:00 01/02/22 08:18 Magnesium Oxide 400 Mg Tablet PO 400 mg DAILY MARY Administration Multivitamins 1 tab 12/05/21 09:00 01/02/22 08:18 Multivitamin Tablet PO 1 tab DAILY MARY Administration Nicotine 1 patch 12/12/21 01:01 01/02/22 08:18 Nicotine 14 Mg Patch TOP 1 patch DAILY MARY Administration Olanzapine 5 mg 12/07/21 21:00 01/01/22 20:53 Olanzapine Odt 5 Mg Tablet TL 5 mg HS MARY Administration Polyethylene Glycol 17 gm 12/09/21 14:00 01/02/22 08:21 Polyethylene Glycol 3350 17 Gm Packet PO Not Given DAILY MARY Quetiapine Fumarate 50 mg 12/10/21 21:00 01/01/22 20:53 Quetiapine 25 Mg Tablet PO 50 mg QPM MARY Administration Sodium Chloride 10 ml 12/04/21 21:17 12/18/21 20:03 Sodium Chloride Flush 0.9% 10 Ml Syringe IVP 10 ml PRN PRN Administration NEEDED PER PROVIDER ORDERS Sodium Chloride 10 ml 12/05/21 01:00 01/02/22 08:21 Sodium Chloride Flush 0.9% 10 Ml Syringe IVP 10 ml 0100,0900,1700 MARY Administration Thiamine HCl 100 mg 12/04/21 09:00 01/02/22 08:18 Thiamine 100 Mg Tablet PO 100 mg DAILY MARY Administration - Lab Result Fish Bone Diagrams: 12/12/21 08:07 12/12/21 08:07 Subjective - Subjective Patient Reports: Resting Comfortably, No Complaints Objective Vital Signs: Vital Signs - 24 hr 01/01/22 01/02/22 01/02/22 15:59 00:00 07:53 Temperature 36.6 C 36.4 C L 36.4 C L Heart Rate [ 69 80 Brachial] Heart Rate [ 109 H Radial] Respiratory 20 18 14 Rate Blood Pressure 131/90 H 145/92 H 112/80 [Right Brachial artery] O2 Saturation 96 92 96 Oxygen O2 Source Room air I&O (Last 24 Hrs): Intake and Output Totals x24h 12/31/21 01/01/22 01/02/22 23:59 23:59 23:59 Intake Total 1680 1898 320 Balance 1680 1898 320 General: Alert, Oriented x3, Cooperative, No acute distress HEENT: Atraumatic Neck: Supple Lymphatic: no adenopathy Neuro: Alert, Non Focal, Oriented Times 3 Cardiovascular: Regular rate, Normal S1, Normal S2 Respiratory: Chest non-tender, No respiratory distress Abdomen: Normal bowel sounds, Soft Extremities: Normal pulses - Results Results: Laboratory Results WBC 3.4 x10^3/uL (4.8-10.8) L 12/12/21 08:07 RBC 4.17 10^6/uL (4.70-6.10) L 12/12/21 08:07 Hgb 13.2 g/dL (14.0-18.0) L 12/12/21 08:07 Hct 40.3 % (42.0-52.0) L 12/12/21 08:07 MCV 96.6 fL (80.0-94.0) H 12/12/21 08:07 MCH 31.7 pg (27.0-31.0) H 12/12/21 08:07 MCHC 32.8 g/dL (32.0-36.0) 12/12/21 08:07 RDW 13.7 % (12.0-15.0) 12/12/21 08:07 Plt Count 146 10^3/uL (130-450) 12/12/21 08:07 MPV 12.8 fL (7.4-11.4) H 12/12/21 08:07 Neut # (Auto) 1.5 10^3/uL (1.5-6.6) 12/12/21 08:07 Lymph # (Auto) 1.4 10^3/uL (1.5-3.5) L 12/12/21 08:07 [place] # (Auto) 0.4 10^3/uL (0.0-1.0) 12/12/21 08:07 Eos # (Auto) 0.1 10^3/uL (0.0-0.7) 12/12/21 08:07 Baso # (Auto) 0.1 10^3/uL (0.0-0.1) 12/12/21 08:07 Absolute Nucleated RBC 0.00 x10^3/uL 12/12/21 08:07 Nucleated RBC % 0.0 /100WBC 12/12/21 08:07 PT 15.1 secs (9.9-12.6) H 12/04/21 23:33 INR 1.4 (0.8-1.2) H 12/04/21 23:33 APTT 24.8 secs (24.9-33.3) L 12/03/21 18:20 Sodium 135 mmol/L (135-145) 12/12/21 08:07 Potassium 3.8 mmol/L (3.5-5.0) 12/12/21 08:07 Chloride 101 mmol/L (101-111) 12/12/21 08:07 Carbon Dioxide 24 mmol/L (21-32) 12/12/21 08:07 Anion Gap 10.0 (6-13) 12/12/21 08:07 BUN 19 mg/dL (6-20) 12/12/21 08:07 Creatinine 0.7 mg/dL (0.6-1.2) 12/12/21 08:07 Estimated GFR (MDRD) 114 (>89) 12/12/21 08:07 Glucose 121 mg/dL (70-100) H 12/12/21 08:07 Calcium 8.7 mg/dL (8.5-10.3) 12/12/21 08:07 Phosphorus 3.6 mg/dL (2.5-4.6) 12/06/21 07:04 Magnesium 2.0 mg/dL (1.7-2.8) 12/06/21 07:04 Total Bilirubin 0.5 mg/dL (0.2-1.0) 12/12/21 08:07 Direct Bilirubin < 0.1 mg/dL (0.1-0.5) L 12/09/21 07:55 AST 149 IU/L (10-42) H 12/12/21 08:07 ALT 254 IU/L (10-60) H 12/12/21 08:07 Alkaline Phosphatase 80 IU/L (42-121) 12/12/21 08:07 Ammonia 12.5 umol/L (7-35) 12/08/21 07:54 Total Protein 7.1 g/dL (6.7-8.2) 12/12/21 08:07 Albumin 3.7 g/dL (3.2-5.5) 12/12/21 08:07 Globulin 3.4 g/dL (2.1-4.2) 12/12/21 08:07 Albumin/Globulin Ratio 1.1 (1.0-2.2) 12/12/21 08:07 Lipase 28 U/L (22-51) 12/06/21 07:04 Whole Bld Vitamin B1 TNP 12/04/21 16:52 TSH 1.25 uIU/mL (0.34-5.60) 12/03/21 18:20 Urine Color YELLOW 12/03/21 18:26 Urine Clarity CLEAR (CLEAR) 12/03/21 18:26 Urine pH 6.5 PH (5.0-7.5) 12/03/21 18:26 Ur Specific [place] 1.020 (1.002-1.030) 12/03/21 18:26 Urine Protein NEGATIVE mg/dL (NEGATIVE) 12/03/21 18:26 Urine Glucose (UA) NEGATIVE mg/dL (NEGATIVE) 12/03/21 18:26 Urine Ketones NEGATIVE mg/dL (NEGATIVE) 12/03/21 18:26 Urine Occult Blood NEGATIVE (NEGATIVE) 12/03/21 18:26 Urine Nitrite NEGATIVE (NEGATIVE) 12/03/21 18:26 Urine Bilirubin NEGATIVE (NEGATIVE) 12/03/21 18:26 Urine Urobilinogen 0.2 (NORMAL) E.U./dL (NORMAL) 12/03/21 18:26 Ur Leukocyte Esterase NEGATIVE (NEGATIVE) 12/03/21 18:26 Ur Microscopic Review NOT INDICATED 12/03/21 18:26 Urine Culture Comments NOT INDICATED 12/03/21 18:26 Nasal Adenovirus (PCR) NOT DETECTED 12/20/21 19:10 Nasal B. parapertussis DNA (PCR) NOT DETECTED 12/20/21 19:10 Nasal Coronavir 229E PCR NOT DETECTED 12/20/21 19:10 Nasal Coronavir HKU1 PCR NOT DETECTED 12/20/21 19:10 Nasal Coronavir NL63 PCR NOT DETECTED 12/20/21 19:10 Nasal Coronavir OC43 PCR NOT DETECTED 12/20/21 19:10 Nasal Enterovir/Rhinovir PCR NOT DETECTED 12/20/21 19:10 Nasal Influenza B PCR NOT DETECTED 12/20/21 19:10 Nasal Influenza A PCR NOT DETECTED 12/20/21 19:10 Nasal Parainfluen 1 PCR NOT DETECTED 12/20/21 19:10 Nasal Parainfluen 2 PCR NOT DETECTED 12/20/21 19:10 Nasal Parainfluen 3 PCR NOT DETECTED 12/20/21 19:10 Nasal Parainfluen 4 PCR NOT DETECTED 12/20/21 19:10 Nasal RSV (PCR) NOT DETECTED 12/20/21 19:10 Nasal B.pertussis DNA PCR NOT DETECTED 12/20/21 19:10 Nasal C.pneumoniae (PCR) NOT DETECTED 12/20/21 19:10 Juan Daniel Human Metapneumo PCR NOT DETECTED 12/20/21 19:10 Nasal M.pneumoniae (PCR) NOT DETECTED 12/20/21 19:10 Nasal SARS-CoV-2 (PCR) DETECTED A 12/20/21 19:10 Salicylates < 6.0 mg/dL 12/03/21 18:20 Urine Opiates Screen NEGATIVE (NEGATIVE) 12/03/21 18:26 Ur Oxycodone Screen NEGATIVE (NEGATIVE) 12/03/21 18:26 Urine Methadone Screen NEGATIVE (NEGATIVE) 12/03/21 18:26 Ur Propoxyphene Screen NEGATIVE (NEGATIVE) 12/03/21 18:26 Acetaminophen < 10 ug/mL (10-30) L 12/03/21 18:20 Ur Barbiturates Screen NEGATIVE (NEGATIVE) 12/03/21 18:26 Ur Tricyclics Screen NEGATIVE (NEGATIVE) 12/03/21 18:26 Ur Phencyclidine Scrn NEGATIVE (NEGATIVE) 12/03/21 18:26 Ur Amphetamine Screen NEGATIVE (NEGATIVE) 12/03/21 18:26 U Methamphetamines Scrn NEGATIVE (NEGATIVE) 12/03/21 18:26 U Benzodiazepines Scrn POSITIVE (NEGATIVE) H 12/03/21 18:26 Urine Cocaine Screen NEGATIVE (NEGATIVE) 12/03/21 18:26 U Cannabinoids Screen NEGATIVE (NEGATIVE) 12/03/21 18:26 Ethyl Alcohol < 5.0 mg/dL 12/03/21 18:20 Sepsis Event Note (H) - Evaluation Current Stage of Sepsis: Ruled out ABX Reporting Has patient been on IV antibiotics over the past 48 hours?: No Current Medications - Current Medications Current Medications: Active Medications Acetaminophen (Acetaminophen 325 Mg Tablet) 650 mg PO Q4HR PRN PRN Reason: Pain 1 to 4 Last Admin: 12/26/21 08:10 Dose: 650 mg Docusate Sodium (Docusate Sodium 250 Mg Capsule) 250 - 500 mg PO DAILY PRN PRN Reason: Constipation Haloperidol (Haloperidol 1 Mg Tablet) 2 mg PO DAILY [facility] Last Admin: 01/02/22 08:18 Dose: 2 mg Sodium Chloride (Normal Saline 0.9%) 250 mls @ 20 mls/hr IV Q24H PRN PRN Reason: TKO RATE Last Infusion: 12/05/21 23:05 Dose: Infused Magnesium Oxide (Magnesium Oxide 400 Mg Tablet) 400 mg PO DAILY [facility] Last Admin: 01/02/22 08:18 Dose: 400 mg Multivitamins (Multivitamin Tablet) 1 tab PO DAILY [facility] Last Admin: 01/02/22 08:18 Dose: 1 tab Nicotine (Nicotine 14 Mg Patch) 1 patch TOP DAILY [facility] Last Admin: 01/02/22 08:18 Dose: 1 patch Olanzapine (Olanzapine Odt 5 Mg Tablet) 5 mg TL HS [facility] Last Admin: 01/01/22 20:53 Dose: 5 mg Ondansetron HCl (Ondansetron 4 Mg/2 Ml Vial) 4 mg IVP Q6HR PRN PRN Reason: Nausea / Vomiting Polyethylene Glycol (Polyethylene Glycol 3350 17 Gm Packet) 17 gm PO DAILY [facility] Last Admin: 01/02/22 08:21 Dose: Not Given Quetiapine Fumarate (Quetiapine 25 Mg Tablet) 50 mg PO QPM [facility] Last Admin: 01/01/22 20:53 Dose: 50 mg Senna (Senna 8.6 Mg Tablet) 8.6 - 17.2 mg PO DAILY PRN PRN Reason: Constipation Sodium Chloride (Sodium Chloride Flush 0.9% 10 Ml Syringe) 10 ml IVP PRN PRN PRN Reason: NEEDED PER PROVIDER ORDERS Last Admin: 12/18/21 20:03 Dose: 10 ml Sodium Chloride (Sodium Chloride Flush 0.9% 10 Ml Syringe) 10 ml IVP 0100,0900,1700 [facility] Last Admin: 01/02/22 08:21 Dose: 10 ml Thiamine HCl (Thiamine 100 Mg Tablet) 100 mg PO DAILY [facility] Last Admin: 01/02/22 08:18 Dose: 100 mg Magnesium Oxide [Mag Ox] 400 mg PO DAILY 12/01/21 Multivitamin [Theragran] 1 each PO DAILY 12/01/21
[2022-01-02] MEDS: OLANZapine ODT 5 MG TABLET TL SCH (20:40)
[2022-01-02] MEDS: QUEtiapine 25 MG TABLET PO SCH (20:40)
[2022-01-03] MEDS: SODIUM CHLORIDE FLUSH 0.9% 10 ML SYRINGE IVP SCH ×2 (06:54→08:19)
[2022-01-03] MEDS: polyethylene glycoL 3350 17 GM PACKET PO SCH (08:16)
[2022-01-03] MEDS: MULTIVITAMIN TABLET PO SCH (08:18)
[2022-01-03] MEDS: THIAMINE 100 MG TABLET PO SCH (08:18)
[2022-01-03] MEDS: MAGNESIUM OXIDE 400 MG TABLET PO SCH (08:19)
[2022-01-03] MEDS: NICOTINE 14 MG PATCH TOP SCH (08:19)
[2022-01-03] MEDS: haloperidoL 1 MG TABLET PO SCH (08:19)
[2022-01-03] MEDS ORDERED: IBUPROFEN 400 MG TABLET PO PRN (08:46)
[2022-01-03] MEDS: NICOTINE 7 MG PATCH TOP SCH (09:45)
--- NOTE | 2022-01-03 17:44 | PROVIDER PROGRESS NOTE ---
Assessment/Plan - Problem List (1) Metabolic encephalopathy Assessment/Plan: His poor processing is evident when he discusses hunting giraffes or pulling the Code Blue button in his room, for example. Our SW insurance territory manager (Yaz Tobias) and traffic workforce representative met and have indicated he needs several weeks for getting legally appointed guardian established 1:1 monitoring for safety was stopped several weeks ago. 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 He is stable but confused. We are continuing PO Thaimine daily for this pt (3) COVID-19 Impression: pt is asymptomatic. His first positive test fwas December 03 and he is asymptomatic. He is off of precautions. (4) Homeless single person Impression: This has made his disposition and Uth plan difficult and he requires guardianship. This is in process with social work and will be a prolonged process and he will likely be hospitalized for extended period of time. (5) Alcohol abuse Impression: His librium was tapered off now. He initially went through alcohol withdrawal many weeks ago, but this has now resolved. - Current Meds Current Meds: Current Medications Generic Name Dose Route Start Last Admin Trade Name Debby PRN Reason Stop Dose Admin Haloperidol 2 mg 12/19/21 21:00 01/03/22 08:19 Haloperidol 1 Mg Tablet PO 2 mg DAILY MARY Administration Magnesium Oxide 400 mg 12/05/21 09:00 01/03/22 08:19 Magnesium Oxide 400 Mg Tablet PO 400 mg DAILY MARY Administration Multivitamins 1 tab 12/05/21 09:00 01/03/22 08:18 Multivitamin Tablet PO 1 tab DAILY MARY Administration Nicotine 1 patch 01/03/22 09:00 01/03/22 09:45 Nicotine 7 Mg Patch TOP 1 patch DAILY MARY Administration Olanzapine 5 mg 12/07/21 21:00 01/02/22 20:40 Olanzapine Odt 5 Mg Tablet TL 5 mg HS MARY Administration Polyethylene Glycol 17 gm 12/09/21 14:00 01/03/22 08:16 Polyethylene Glycol 3350 17 Gm Packet PO 17 gm DAILY MARY Administration Quetiapine Fumarate 50 mg 12/10/21 21:00 01/02/22 20:40 Quetiapine 25 Mg Tablet PO 50 mg QPM MARY Administration Thiamine HCl 100 mg 12/04/21 09:00 01/03/22 08:18 Thiamine 100 Mg Tablet PO 100 mg DAILY MARY Administration - Lab Result Fish Bone Diagrams: 12/12/21 08:07 12/12/21 08:07 - Additional Planning My Orders: My Active Orders 01/03/22 08:45 IV Discontinuation [RC] .ONCE 01/03/22 08:46 Ibuprofen [Motrin] 400 mg PO Q6HR PRN 01/03/22 08:47 JENNIE Isidrae [RC] QSHIFT 01/03/22 09:00 Nicotine 7 mg Patch [Nicoderm] 1 patch TOP DAILY Subjective - Subjective Patient Reports: No Complaints Objective Vital Signs: Vital Signs - 24 hr 01/03/22 01/03/22 01/03/22 05:25 07:46 08:59 Temperature 36.3 C L 36.7 C 36.7 C Heart Rate [ 86 81 85 Brachial] Respiratory 18 18 16 Rate Blood Pressure 134/96 H 121/81 H 119/78 [Right Brachial artery] O2 Saturation 96 97 97 Oxygen O2 Source Room air I&O (Last 24 Hrs): Intake and Output Totals x24h 01/01/22 01/02/22 01/03/22 23:59 23:59 23:59 Intake Total 1898 2380 1820 Balance 1898 2380 1820 General: Alert HEENT: Mucous membr. moist/pink Neck: Supple Neuro: Non Focal, Other Respiratory: No respiratory distress Extremities: No edema - Results Results: Laboratory Results WBC 3.4 x10^3/uL (4.8-10.8) L 12/12/21 08:07 RBC 4.17 10^6/uL (4.70-6.10) L 12/12/21 08:07 Hgb 13.2 g/dL (14.0-18.0) L 12/12/21 08:07 Hct 40.3 % (42.0-52.0) L 12/12/21 08:07 MCV 96.6 fL (80.0-94.0) H 12/12/21 08:07 MCH 31.7 pg (27.0-31.0) H 12/12/21 08:07 MCHC 32.8 g/dL (32.0-36.0) 12/12/21 08:07 RDW 13.7 % (12.0-15.0) 12/12/21 08:07 Plt Count 146 10^3/uL (130-450) 12/12/21 08:07 MPV 12.8 fL (7.4-11.4) H 12/12/21 08:07 Neut # (Auto) 1.5 10^3/uL (1.5-6.6) 12/12/21 08:07 Lymph # (Auto) 1.4 10^3/uL (1.5-3.5) L 12/12/21 08:07 [place] # (Auto) 0.4 10^3/uL (0.0-1.0) 12/12/21 08:07 Eos # (Auto) 0.1 10^3/uL (0.0-0.7) 12/12/21 08:07 Baso # (Auto) 0.1 10^3/uL (0.0-0.1) 12/12/21 08:07 Absolute Nucleated RBC 0.00 x10^3/uL 12/12/21 08:07 Nucleated RBC % 0.0 /100WBC 12/12/21 08:07 PT 15.1 secs (9.9-12.6) H 12/04/21 23:33 INR 1.4 (0.8-1.2) H 12/04/21 23:33 APTT 24.8 secs (24.9-33.3) L 12/03/21 18:20 Sodium 135 mmol/L (135-145) 12/12/21 08:07 Potassium 3.8 mmol/L (3.5-5.0) 12/12/21 08:07 Chloride 101 mmol/L (101-111) 12/12/21 08:07 Carbon Dioxide 24 mmol/L (21-32) 12/12/21 08:07 Anion Gap 10.0 (6-13) 12/12/21 08:07 BUN 19 mg/dL (6-20) 12/12/21 08:07 Creatinine 0.7 mg/dL (0.6-1.2) 12/12/21 08:07 Estimated GFR (MDRD) 114 (>89) 12/12/21 08:07 Glucose 121 mg/dL (70-100) H 12/12/21 08:07 Calcium 8.7 mg/dL (8.5-10.3) 12/12/21 08:07 Phosphorus 3.6 mg/dL (2.5-4.6) 12/06/21 07:04 Magnesium 2.0 mg/dL (1.7-2.8) 12/06/21 07:04 Total Bilirubin 0.5 mg/dL (0.2-1.0) 12/12/21 08:07 Direct Bilirubin < 0.1 mg/dL (0.1-0.5) L 12/09/21 07:55 AST 149 IU/L (10-42) H 12/12/21 08:07 ALT 254 IU/L (10-60) H 12/12/21 08:07 Alkaline Phosphatase 80 IU/L (42-121) 12/12/21 08:07 Ammonia 12.5 umol/L (7-35) 12/08/21 07:54 Total Protein 7.1 g/dL (6.7-8.2) 12/12/21 08:07 Albumin 3.7 g/dL (3.2-5.5) 12/12/21 08:07 Globulin 3.4 g/dL (2.1-4.2) 12/12/21 08:07 Albumin/Globulin Ratio 1.1 (1.0-2.2) 12/12/21 08:07 Lipase 28 U/L (22-51) 12/06/21 07:04 Whole Bld Vitamin B1 TNP 12/04/21 16:52 TSH 1.25 uIU/mL (0.34-5.60) 12/03/21 18:20 Urine Color YELLOW 12/03/21 18:26 Urine Clarity CLEAR (CLEAR) 12/03/21 18:26 Urine pH 6.5 PH (5.0-7.5) 12/03/21 18:26 Ur Specific [place] 1.020 (1.002-1.030) 12/03/21 18:26 Urine Protein NEGATIVE mg/dL (NEGATIVE) 12/03/21 18: Urine Glucose (UA) NEGATIVE mg/dL (NEGATIVE) 12/03/21 18: Urine Ketones NEGATIVE mg/dL (NEGATIVE) 12/03/21 18:26 Urine Occult Blood NEGATIVE (NEGATIVE) 12/03/21 18:26 Urine Nitrite NEGATIVE (NEGATIVE) 12/03/21 18:26 Urine Bilirubin NEGATIVE (NEGATIVE) 12/03/21 18:26 Urine Urobilinogen 0.2 (NORMAL) E.U./dL (NORMAL) 12/03/21 18:26 Ur Leukocyte Esterase NEGATIVE (NEGATIVE) 12/03/21 18:26 Ur Microscopic Review NOT INDICATED 12/03/21 18:26 Urine Culture Comments NOT INDICATED 12/03/21 18:26 Nasal Adenovirus (PCR) NOT DETECTED 12/20/21 19:10 Nasal B. parapertussis DNA (PCR) NOT DETECTED 12/20/21 19:10 Nasal Coronavir 229E PCR NOT DETECTED 12/20/21 19:10 Nasal Coronavir HKU1 PCR NOT DETECTED 12/20/21 19:10 Nasal Coronavir NL63 PCR NOT DETECTED 12/20/21 19:10 Nasal Coronavir OC43 PCR NOT DETECTED 12/20/21 19:10 Nasal Enterovir/Rhinovir PCR NOT DETECTED 12/20/21 19:10 Nasal Influenza B PCR NOT DETECTED 12/20/21 19:10 Nasal Influenza A PCR NOT DETECTED 12/20/21 19:10 Nasal Parainfluen 1 PCR NOT DETECTED 12/20/21 19:10 Nasal Parainfluen 2 PCR NOT DETECTED 12/20/21 19:10 Nasal Parainfluen 3 PCR NOT DETECTED 12/20/21 19:10 Nasal Parainfluen 4 PCR NOT DETECTED 12/20/21 19:10 Nasal RSV (PCR) NOT DETECTED 12/20/21 19:10 Nasal B.pertussis DNA PCR NOT DETECTED 12/20/21 19:10 Nasal C.pneumoniae (PCR) NOT DETECTED 12/20/21 19:10 Juan Daniel Human Metapneumo PCR NOT DETECTED 12/20/21 19:10 Nasal M.pneumoniae (PCR) NOT DETECTED 12/20/21 19:10 Nasal SARS-CoV-2 (PCR) DETECTED A 12/20/21 19:10 Salicylates < 6.0 mg/dL 12/03/21 18:20 Urine Opiates Screen NEGATIVE (NEGATIVE) 12/03/21 18:26 Ur Oxycodone Screen NEGATIVE (NEGATIVE) 12/03/21 18:26 Urine Methadone Screen NEGATIVE (NEGATIVE) 12/03/21 18:26 Ur Propoxyphene Screen NEGATIVE (NEGATIVE) 12/03/21 18:26 Acetaminophen < 10 ug/mL (10-30) L 12/03/21 18:20 Ur Barbiturates Screen NEGATIVE (NEGATIVE) 12/03/21 18:26 Ur Tricyclics Screen NEGATIVE (NEGATIVE) 12/03/21 18:26 Ur Phencyclidine Scrn NEGATIVE (NEGATIVE) 12/03/21 18:26 Ur Amphetamine Screen NEGATIVE (NEGATIVE) 12/03/21 18:26 U Methamphetamines Scrn NEGATIVE (NEGATIVE) 12/03/21 18:26 U Benzodiazepines Scrn POSITIVE (NEGATIVE) H 12/03/21 18:26 Urine Cocaine Screen NEGATIVE (NEGATIVE) 12/03/21 18:26 U Cannabinoids Screen NEGATIVE (NEGATIVE) 12/03/21 18:26 Ethyl Alcohol < 5.0 mg/dL 12/03/21 18:20 Sepsis Event Note (H) - Evaluation Current Stage of Sepsis: Ruled out
[2022-01-03] MEDS: QUEtiapine 25 MG TABLET PO SCH (20:57)
[2022-01-03] MEDS: OLANZapine ODT 5 MG TABLET TL SCH (20:57)
[2022-01-04] MEDS: haloperidoL 1 MG TABLET PO SCH (08:21)
[2022-01-04] MEDS: THIAMINE 100 MG TABLET PO SCH (08:21)
[2022-01-04] MEDS: MULTIVITAMIN TABLET PO SCH (08:21)
[2022-01-04] MEDS: MAGNESIUM OXIDE 400 MG TABLET PO SCH (08:21)
[2022-01-04] MEDS: NICOTINE 7 MG PATCH TOP SCH (08:22)
[2022-01-04] MEDS: polyethylene glycoL 3350 17 GM PACKET PO SCH (08:22)
[2022-01-04] MEDS: QUEtiapine 25 MG TABLET PO SCH (20:34)
[2022-01-04] MEDS: OLANZapine ODT 5 MG TABLET TL SCH (20:34)
[2022-01-05] MEDS: NICOTINE 7 MG PATCH TOP SCH (08:30)
[2022-01-05] MEDS: haloperidoL 1 MG TABLET PO SCH (08:31)
[2022-01-05] MEDS: MULTIVITAMIN TABLET PO SCH (08:31)
[2022-01-05] MEDS: polyethylene glycoL 3350 17 GM PACKET PO SCH (08:31)
[2022-01-05] MEDS: MAGNESIUM OXIDE 400 MG TABLET PO SCH (08:31)
[2022-01-05] MEDS: THIAMINE 100 MG TABLET PO SCH (08:31)
--- NOTE | 2022-01-05 08:49 | PROVIDER PROGRESS NOTE ---
Assessment/Plan - Problem List (1) Metabolic encephalopathy Assessment/Plan: His poor processing is evident when he discusses hunting giraffes or pulling the Code Blue button in his room, for example. Our SW manager software (Yaz Tobias) and criminal justice lawyer met and have indicated he needs several weeks for getting legally appointed guardian established 1:1 monitoring for safety was stopped several weeks ago. 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 He is stable but confused. We are continuing PO Thaimine daily for this pt (3) COVID-19 Impression: Pt is asymptomatic. His first positive test was December 03 and he is asymptomatic. He is off of precautions. (4) Homeless single person Impression: This has made his disposition and [facility] plan difficult and he requires guardianship. This is in process with social work and will be a prolonged process and he will likely be hospitalized for extended period of time. (5) Alcohol abuse Impression: His librium was tapered to off. He initially went through alcohol withdrawal many weeks ago, but this has now resolved. - Current Meds Current Meds: Current Medications Generic Name Dose Route Start Last Admin Trade Name Lazaroq PRN Reason Stop Dose Admin Haloperidol 2 mg 12/19/21 21:00 01/05/22 08:31 Haloperidol 1 Mg Tablet PO 2 mg DAILY MARY Administration Magnesium Oxide 400 mg 12/05/21 09:00 01/05/22 08:31 Magnesium Oxide 400 Mg Tablet PO 400 mg DAILY MARY Administration Multivitamins 1 tab 12/05/21 09:00 01/05/22 08:31 Multivitamin Tablet PO 1 tab DAILY MARY Administration Nicotine 1 patch 01/03/22 09:00 01/05/22 08:30 Nicotine 7 Mg Patch TOP 1 patch DAILY MARY Administration Olanzapine 5 mg 12/07/21 21:00 01/04/22 20:34 Olanzapine Odt 5 Mg Tablet TL 5 mg HS MARY Administration Polyethylene Glycol 17 gm 12/09/21 14:00 01/05/22 08:31 Polyethylene Glycol 3350 17 Gm Packet PO Not Given DAILY MARY Quetiapine Fumarate 50 mg 12/10/21 21:00 01/04/22 20:34 Quetiapine 25 Mg Tablet PO 50 mg QPM MARY Administration Thiamine HCl 100 mg 12/04/21 09:00 02/28/22 08:31 Thiamine 100 Mg Tablet PO 100 mg DAILY MARY Administration - Lab Result Fish Bone Diagrams: 12/12/21 08:07 12/12/21 08:07 Subjective - Subjective Patient Reports: No Complaints Nursing Reports: Other (He seens restless today, walking up and on the halls more than he normally does) Objective Vital Signs: Vital Signs - 24 hr 01/05/22 07:20 Temperature 36.4 C L Heart Rate [ 92 Brachial] Respiratory 19 Rate Blood Pressure 126/96 H [Right Brachial artery] O2 Saturation 96 Oxygen O2 Source Room air I&O (Last 24 Hrs): Intake and Output Totals x24h 01/03/22 01/04/22 01/05/22 23:59 23:59 23:59 Intake Total 2410 1730 240 Balance 2410 1730 240 General: Alert HEENT: Mucous membr. moist/pink Neck: Supple Neuro: Alert, Non Focal Cardiovascular: Regular rate Respiratory: No respiratory distress Abdomen: Soft Extremities: No edema - Results Results: Laboratory Results WBC 3.4 x10^3/uL (4.8-10.8) L 12/12/21 08:07 RBC 4.17 10^6/uL (4.70-6.10) L 12/12/21 08:07 Hgb 13.2 g/dL (14.0-18.0) L 12/12/21 08:07 Hct 40.3 % (42.0-52.0) L 12/12/21 08:07 MCV 96.6 fL (80.0-94.0) H 12/12/21 08:07 MCH 31.7 pg (27.0-31.0) H 12/12/21 08:07 MCHC 32.8 g/dL (32.0-36.0) 12/12/21 08:07 RDW 13.7 % (12.0-15.0) 12/12/21 08:07 Plt Count 146 10^3/uL (130-450) 12/12/21 08:07 MPV 12.8 fL (7.4-11.4) H 12/12/21 08:07 Neut # (Auto) 1.5 10^3/uL (1.5-6.6) 12/12/21 08:07 Lymph # (Auto) 1.4 10^3/uL (1.5-3.5) L 12/12/21 08:07 [place] # (Auto) 0.4 10^3/uL (0.0-1.0) 12/12/21 08:07 Eos # (Auto) 0.1 10^3/uL (0.0-0.7) 12/12/21 08:07 Baso # (Auto) 0.1 10^3/uL (0.0-0.1) 12/12/21 08:07 Absolute Nucleated RBC 0.00 x10^3/uL 12/12/21 08:07 Nucleated RBC % 0.0 /100WBC 12/12/21 08:07 PT 15.1 secs (9.9-12.6) H 12/04/21 23:33 INR 1.4 (0.8-1.2) H 12/04/21 23:33 APTT 24.8 secs (24.9-33.3) L 12/03/21 18:20 Sodium 135 mmol/L (135-145) 12/12/21 08:07 Potassium 3.8 mmol/L (3.5-5.0) 12/12/21 08:07 Chloride 101 mmol/L (101-111) 12/12/21 08:07 Carbon Dioxide 24 mmol/L (21-32) 12/12/21 08:07 Anion Gap 10.0 (6-13) 12/12/21 08:07 BUN 19 mg/dL (6-20) 12/12/21 08:07 Creatinine 0.7 mg/dL (0.6-1.2) 12/12/21 08:07 Estimated GFR (MDRD) 114 (>89) 12/12/21 08:07 Glucose 121 mg/dL (70-100) H 12/12/21 08:07 Calcium 8.7 mg/dL (8.5-10.3) 12/12/21 08:07 Phosphorus 3.6 mg/dL (2.5-4.6) 12/06/21 07:04 Magnesium 2.0 mg/dL (1.7-2.8) 12/06/21 07:04 Total Bilirubin 0.5 mg/dL (0.2-1.0) 12/12/21 08:07 Direct Bilirubin < 0.1 mg/dL (0.1-0.5) L 12/09/21 07:55 AST 149 IU/L (10-42) H 12/12/21 08:07 ALT 254 IU/L (10-60) H 12/12/21 08:07 Alkaline Phosphatase 80 IU/L (42-121) 12/12/21 08:07 Ammonia 12.5 umol/L (7-35) 12/08/21 07:54 Total Protein 7.1 g/dL (6.7-8.2) 12/12/21 08:07 Albumin 3.7 g/dL (3.2-5.5) 12/12/21 08:07 Globulin 3.4 g/dL (2.1-4.2) 12/12/21 08:07 Albumin/Globulin Ratio 1.1 (1.0-2.2) 12/12/21 08:07 Lipase 28 U/L (22-51) 12/06/21 07:04 Whole Bld Vitamin B1 TNP 12/04/21 16:52 TSH 1.25 uIU/mL (0.34-5.60) 12/03/21 18:20 Urine Color YELLOW 12/03/21 18:26 Urine Clarity CLEAR (CLEAR) 12/03/21 18:26 Urine pH 6.5 PH (5.0-7.5) 12/03/21 18:26 Ur Specific [place] 1.020 (1.002-1.030) 12/03/21 18:26 Urine Protein NEGATIVE mg/dL (NEGATIVE) 12/03/21 18:26 Urine Glucose (UA) NEGATIVE mg/dL (NEGATIVE) 12/03/21 18:26 Urine Ketones NEGATIVE mg/dL (NEGATIVE) 12/03/21 18:26 Urine Occult Blood NEGATIVE (NEGATIVE) 12/03/21 18:26 Urine Nitrite NEGATIVE (NEGATIVE) 12/03/21 18:26 Urine Bilirubin NEGATIVE (NEGATIVE) 12/03/21 18:26 Urine Urobilinogen 0.2 (NORMAL) E.U./dL (NORMAL) 12/03/21 18:26 Ur Leukocyte Esterase NEGATIVE (NEGATIVE) 12/03/21 18:26 Ur Microscopic Review NOT INDICATED 12/03/21 18:26 Urine Culture Comments NOT INDICATED 12/03/21 18:26 Nasal Adenovirus (PCR) NOT DETECTED 12/20/21 19:10 Nasal B. parapertussis DNA (PCR) NOT DETECTED 12/20/21 19:10 Nasal Coronavir 229E PCR NOT DETECTED 12/20/21 19:10 Nasal Coronavir HKU1 PCR NOT DETECTED 12/20/21 19:10 Nasal Coronavir NL63 PCR NOT DETECTED 12/20/21 19:10 Nasal Coronavir OC43 PCR NOT DETECTED 12/20/21 19:10 Nasal Enterovir/Rhinovir PCR NOT DETECTED 12/20/21 19:10 Nasal Influenza B PCR NOT DETECTED 12/20/21 19:10 Nasal Influenza A PCR NOT DETECTED 12/20/21 19:10 Nasal Parainfluen 1 PCR NOT DETECTED 12/20/21 19:10 Nasal Parainfluen 2 PCR NOT DETECTED 12/20/21 19:10 Nasal Parainfluen 3 PCR NOT DETECTED 12/20/21 19:10 Nasal Parainfluen 4 PCR NOT DETECTED 12/20/21 19:10 Nasal RSV (PCR) NOT DETECTED 12/20/21 19:10 Nasal B.pertussis DNA PCR NOT DETECTED 12/20/21 19:10 Nasal C.pneumoniae (PCR) NOT DETECTED 12/20/21 19:10 [place] Daniel Human Metapneumo PCR NOT DETECTED 12/20/21 19:10 Nasal M.pneumoniae (PCR) NOT DETECTED 12/20/21 19:10 Nasal SARS-CoV-2 (PCR) DETECTED A 12/20/21 19:10 Salicylates < 6.0 mg/dL 12/03/21 18:20 Urine Opiates Screen NEGATIVE (NEGATIVE) 12/03/21 18:26 Ur Oxycodone Screen NEGATIVE (NEGATIVE) 12/03/21 18:26 Urine Methadone Screen NEGATIVE (NEGATIVE) 12/03/21 18:26 Ur Propoxyphene Screen NEGATIVE (NEGATIVE) 12/03/21 18:26 Acetaminophen < 10 ug/mL (10-30) L 12/03/21 18:20 Ur Barbiturates Screen NEGATIVE (NEGATIVE) 12/03/21 18:26 Ur Tricyclics Screen NEGATIVE (NEGATIVE) 12/03/21 18:26 Ur Phencyclidine Scrn NEGATIVE (NEGATIVE) 12/03/21 18:26 Ur Amphetamine Screen NEGATIVE (NEGATIVE) 12/03/21 18:26 U Methamphetamines Scrn NEGATIVE (NEGATIVE) 12/03/21 18:26 U Benzodiazepines Scrn POSITIVE (NEGATIVE) H 12/03/21 18:26 Urine Cocaine Screen NEGATIVE (NEGATIVE) 12/03/21 18:26 U Cannabinoids Screen NEGATIVE (NEGATIVE) 12/03/21 18:26 Ethyl Alcohol < 5.0 mg/dL 12/03/21 18:20 Sepsis Event Note (H) - Evaluation Current Stage of Sepsis: Ruled out
--- NOTE | 2022-01-05 08:50 | PROVIDER PROGRESS NOTE ---
Assessment/Plan - Problem List (1) Metabolic encephalopathy Assessment/Plan: His poor mental processing is evident when he discusses hunting giraffes or pulling the Code Blue button in his room, for example. Our SW credit manager (Yaz Tobias) and body sander met and have indicated he needs several weeks for getting l egally appointed guardian established 1:1 monitoring for safety was stopped several weeks ago. This morning he left the hallway where his room is located and asked a new hire at the [employer] station where the front door is, and was directed toward that direction, because he was dressed in street clothes and the new hire thought he was a visitor. Then 911 was called and he was found at the corner gas station buying a burrito and cigarettes (apparently all his belongings and money are in his possession in his room). When asked where he went, he answered "to the old place". [facility] was consulted and we cannot lock the 4 the Med-Surg unit doors. Thus this patient needs a 1:1 sitter ordered again. (2) Wernicke-Korsakoff syndrome (alcoholic) Assessment/Plan: He has a fine finger tremor that is chronic and significant cognitive impairment. His last eval by OT he scored 16/30. He is stable but confused. We are continuing PO Thaimine daily for this pt. He will again be on 1:1 monitoring. (3) COVID-19 Impression: Pt is asymptomatic. His first positive test was December 03 and he is asymptomatic. He is off of precautions. (4) Homeless single person Impression: This has made his disposition and [facility] plan difficult and he requires guardianship. This is in process with social work and will be a prolonged process and he will likely be hospitalized for extended period of time. (5) Alcohol abuse Impression: He was often intoxicated when in the ED in the past. He initially went through alcohol withdrawal many weeks ago, but this has now resolved. His librium was tapered to off. - Current Meds Current Meds: Current Medications Generic Name Dose Route Start Last Admin Trade Name Freq PRN Reason Stop Dose Admin Haloperidol 2 mg 12/19/21 21:00 01/05/22 08:31 Haloperidol 1 Mg Tablet PO 2 mg DAILY MARY Administration Magnesium Oxide 400 mg 12/05/21 09:00 01/05/22 08:31 Magnesium Oxide 400 Mg Tablet PO 400 mg DAILY MARY Administration Multivitamins 1 tab 12/05/21 09:00 01/05/22 08:31 Multivitamin Tablet PO 1 tab DAILY MARY Administration Nicotine 1 patch 01/03/22 09:00 01/05/22 08:30 Nicotine 7 Mg Patch TOP 1 patch DAILY MARY Administration Olanzapine 5 mg 12/07/21 21:00 01/04/22 20:34 Olanzapine Odt 5 Mg Tablet TL 5 mg HS MARY Administration Polyethylene Glycol 17 gm 12/09/21 14:00 01/05/22 08:31 Polyethylene Glycol 3350 17 Gm Packet PO Not Given DAILY MARY Quetiapine Fumarate 50 mg 12/10/21 21:00 01/04/22 20:34 Quetiapine 25 Mg Tablet PO 50 mg QPM MARY Administration Thiamine HCl 100 mg 12/04/21 09:00 01/05/22 08:31 Thiamine 100 Mg Tablet PO 100 mg DAILY MARY Administration - Lab Result Fish Bone Diagrams: 12/12/21 08:07 12/12/21 08:07 Subjective - Subjective Nursing Reports: Other (He onsconded this morning, walked out the front door, and 911 was called and found him at the [employer] station buying a burrito and 2 packs of cigarettes.) Objective Vital Signs: Vital Signs - 24 hr 01/05/22 07:20 Temperature 36.4 C L Heart Rate [ 92 Brachial] Respiratory 19 Rate Blood Pressure 126/96 H [Right Brachial artery] O2 Saturation 96 Oxygen O2 Source Room air I&O (Last 24 Hrs): Intake and Output Totals x24h 01/03/22 01/04/22 01/05/22 23:59 23:59 23:59 Intake Total 2410 1730 240 Balance 2410 1730 240 General: Alert, No acute distress HEENT: Mucous membr. moist/pink Neck: Supple Neuro: Non Focal (Confused. Has fine finger tremor.) Cardiovascular: Regular rate Respiratory: No respiratory distress Extremities: No edema, No tenderness/swelling - Results Results: Laboratory Results WBC 3.4 x10^3/uL (4.8-10.8) L 12/12/21 08:07 RBC 4.17 10^6/uL (4.70-6.10) L 12/12/21 08:07 Hgb 13.2 g/dL (14.0-18.0) L 12/12/21 08:07 Hct 40.3 % (42.0-52.0) L 12/12/21 08:07 MCV 96.6 fL (80.0-94.0) H 12/12/21 08:07 MCH 31.7 pg (27.0-31.0) H 12/12/21 08:07 MCHC 32.8 g/dL (32.0-36.0) 12/12/21 08:07 RDW 13.7 % (12.0-15.0) 12/12/21 08:07 Plt Count 146 10^3/uL (130-450) 12/12/21 08:07 MPV 12.8 fL (7.4-11.4) H 12/12/21 08:07 Neut # (Auto) 1.5 10^3/uL (1.5-6.6) 12/12/21 08:07 Lymph # (Auto) 1.4 10^3/uL (1.5-3.5) L 12/12/21 08:07 [place] # (Auto) 0.4 10^3/uL (0.0-1.0) 12/12/21 08:07 Eos # (Auto) 0.1 10^3/uL (0.0-0.7) 12/12/21 08:07 Baso # (Auto) 0.1 10^3/uL (0.0-0.1) 12/12/21 08:07 Absolute Nucleated RBC 0.00 x10^3/uL 12/12/21 08:07 Nucleated RBC % 0.0 /100WBC 12/12/21 08:07 PT 15.1 secs (9.9-12.6) H 12/04/21 23:33 INR 1.4 (0.8-1.2) H 12/04/21 23:33 APTT 24.8 secs (24.9-33.3) L 12/03/21 18:20 Sodium 135 mmol/L (135-145) 12/12/21 08:07 Potassium 3.8 mmol/L (3.5-5.0) 12/12/21 08:07 Chloride 101 mmol/L (101-111) 12/12/21 08:07 Carbon Dioxide 24 mmol/L (21-32) 12/12/21 08:07 Anion Gap 10.0 (6-13) 12/12/21 08:07 BUN 19 mg/dL (6-20) 12/12/21 08:07 Creatinine 0.7 mg/dL (0.6-1.2) 12/12/21 08:07 Estimated GFR (MDRD) 114 (>89) 12/12/21 08:07 Glucose 121 mg/dL (70-100) H 12/12/21 08:07 Calcium 8.7 mg/dL (8.5-10.3) 12/12/21 08:07 Phosphorus 3.6 mg/dL (2.5-4.6) 12/06/21 07:04 Magnesium 2.0 mg/dL (1.7-2.8) 12/06/21 07:04 Total Bilirubin 0.5 mg/dL (0.2-1.0) 12/12/21 08:07 Direct Bilirubin < 0.1 mg/dL (0.1-0.5) L 12/09/21 07:55 AST 149 IU/L (10-42) H 12/12/21 08:07 ALT 254 IU/L (10-60) H 12/12/21 08:07 Alkaline Phosphatase 80 IU/L (42-121) 12/12/21 08:07 Ammonia 12.5 umol/L (7-35) 12/08/21 07:54 Total Protein 7.1 g/dL (6.7-8.2) 12/12/21 08:07 Albumin 3.7 g/dL (3.2-5.5) 12/12/21 08:07 Globulin 3.4 g/dL (2.1-4.2) 12/12/21 08:07 Albumin/Globulin Ratio 1.1 (1.0-2.2) 12/12/21 08:07 Lipase 28 U/L (22-51) 12/06/21 07:04 Whole Bld Vitamin B1 TNP 12/04/21 16:52 TSH 1.25 uIU/mL (0.34-5.60) 12/03/21 18:20 Urine Color YELLOW 12/03/21 18:26 Urine Clarity CLEAR (CLEAR) 12/03/21 18:26 Urine pH 6.5 PH (5.0-7.5) 12/03/21 18:26 Ur Specific [place] 1.020 (1.002-1.030) 12/03/21 18:26 Urine Protein NEGATIVE mg/dL (NEGATIVE) 12/03/21 18: Urine Glucose (UA) NEGATIVE mg/dL (NEGATIVE) 12/03/21 18: Urine Ketones NEGATIVE mg/dL (NEGATIVE) 12/03/21 18:26 Urine Occult Blood NEGATIVE (NEGATIVE) 12/03/21 18:26 Urine Nitrite NEGATIVE (NEGATIVE) 12/03/21 18: Urine Bilirubin NEGATIVE (NEGATIVE) 12/03/21 18: Urine Urobilinogen 0.2 (NORMAL) E.U./dL (NORMAL) 12/03/21 18:26 Ur Leukocyte Esterase NEGATIVE (NEGATIVE) 12/03/21 18:26 Ur Microscopic Review NOT INDICATED 12/03/21 18: Urine Culture Comments NOT INDICATED 12/03/21 18:26 Nasal Adenovirus (PCR) NOT DETECTED 12/20/21 19:10 Nasal B. parapertussis DNA (PCR) NOT DETECTED 12/20/21 19:10 Nasal Coronavir 229E PCR NOT DETECTED 12/20/21 19:10 Nasal Coronavir HKU1 PCR NOT DETECTED 12/20/21 19:10 Nasal Coronavir NL63 PCR NOT DETECTED 12/20/21 19:10 Nasal Coronavir OC43 PCR NOT DETECTED 12/20/21 19:10 Nasal Enterovir/Rhinovir PCR NOT DETECTED 12/20/21 19:10 Nasal Influenza B PCR NOT DETECTED 12/20/21 19:10 Nasal Influenza A PCR NOT DETECTED 12/20/21 19:10 Nasal Parainfluen 1 PCR NOT DETECTED 12/20/21 19:10 Nasal Parainfluen 2 PCR NOT DETECTED 12/20/21 19:10 Nasal Parainfluen 3 PCR NOT DETECTED 12/20/21 19:10 Nasal Parainfluen 4 PCR NOT DETECTED 12/20/21 19:10 Nasal RSV (PCR) NOT DETECTED 12/20/21 19:10 Nasal B.pertussis DNA PCR NOT DETECTED 12/20/21 19:10 Nasal C.pneumoniae (PCR) NOT DETECTED 12/20/21 19:10 [place] Human Metapneumo PCR NOT DETECTED 12/20/21 19:10 Nasal M.pneumoniae (PCR) NOT DETECTED 12/20/21 19:10 Nasal SARS-CoV-2 (PCR) DETECTED A 12/20/21 19:10 Salicylates < 6.0 mg/dL 12/03/21 18:20 Urine Opiates Screen NEGATIVE (NEGATIVE) 12/03/21 18:26 Ur Oxycodone Screen NEGATIVE (NEGATIVE) 12/03/21 18:26 Urine Methadone Screen NEGATIVE (NEGATIVE) 12/03/21 18:26 Ur Propoxyphene Screen NEGATIVE (NEGATIVE) 12/03/21 18:26 Acetaminophen < 10 ug/mL (10-30) L 12/03/21 18:20 Ur Barbiturates Screen NEGATIVE (NEGATIVE) 12/03/21 18:26 Ur Tricyclics Screen NEGATIVE (NEGATIVE) 12/03/21 18:26 Ur Phencyclidine Scrn NEGATIVE (NEGATIVE) 12/03/21 18:26 Ur Amphetamine Screen NEGATIVE (NEGATIVE) 12/03/21 18:26 U Methamphetamines Scrn NEGATIVE (NEGATIVE) 12/03/21 18:26 U Benzodiazepines Scrn POSITIVE (NEGATIVE) H 12/03/21 18:26 Urine Cocaine Screen NEGATIVE (NEGATIVE) 12/03/21 18:26 U Cannabinoids Screen NEGATIVE (NEGATIVE) 12/03/21 18:26 Ethyl Alcohol < 5.0 mg/dL 12/03/21 18:20 Sepsis Event Note (H) - Evaluation Current Stage of Sepsis: Ruled out
[2022-01-05] MEDS: OLANZapine ODT 5 MG TABLET TL SCH (21:51)
[2022-01-05] MEDS: QUEtiapine 25 MG TABLET PO SCH (21:51)
[2022-01-06] MEDS: polyethylene glycoL 3350 17 GM PACKET PO SCH (07:51)
[2022-01-06] MEDS: NICOTINE 7 MG PATCH TOP SCH (07:51)
[2022-01-06] MEDS: haloperidoL 1 MG TABLET PO SCH (07:52)
[2022-01-06] MEDS: MAGNESIUM OXIDE 400 MG TABLET PO SCH (07:52)
[2022-01-06] MEDS: THIAMINE 100 MG TABLET PO SCH (07:52)
[2022-01-06] MEDS: MULTIVITAMIN TABLET PO SCH (07:53)
--- NOTE | 2022-01-06 10:07 | PROVIDER PROGRESS NOTE ---
Assessment/Plan - Problem List (1) Metabolic encephalopathy Assessment/Plan: 01/06 today pt is cooperative with stall and stable, pt ate whole his breakfast. pt ask lots of coffee to drink but which cause his agitation in the past. we will try use decaf for pt. pt walked out of hospital on yesterday, now pt has 1:1 safety observation. (2) Wernicke-Korsakoff syndrome (alcoholic) Assessment/Plan: 01/06 He has hx of chronic alcoholic abuse and chronic elevated liver enzyme. pt present a chronic finger tremor and cognitive impairment. pt had cognitive evaluation by OT, his score was 16/30. pt also had tele psychiatrist evaluation and pt has Haldol and Zyprexa. We are continuing PO Thaimine daily for this pt. He will again be on 1:1 monitoring. (3) COVID-19 Impression: Pt is asymptomatic without respiratory distress. pt walk at hallway. He is off of precautions. (4) Homeless single person Impression: pt's this situation further made his disposition difficult and he is required to have guardianship for his disposition. social worker was consulted and it might be a prolonged process and need extended period of time in hospitalization (5) Alcohol abuse Impression: He has hx of chronic alcoholic abuse and often intoxicated when in the ED in the past. He initially went through alcohol withdrawal many weeks ago, but this has now resolved. His librium was tapered to off. (6)elevated liver enzyme pt has hx of chronic alcoholic abuse which likely contribute to his elevated liver enzyme. pt ate all his meal, walk at hallway. pt already did not drink alcohol in this whole hospital stay now. hopefully pt continue stopping drinking of alcohol, followup with PCP and GI as out-pt after d/c to monitor. - Current Meds Current Meds: Current Medications Generic Name Dose Route Start Last Admin Trade Name Debby PRN Reason Stop Dose Admin Haloperidol 2 mg 12/19/21 21:00 01/06/22 07:52 Haloperidol 1 Mg Tablet PO 2 mg DAILY MARY Administration Magnesium Oxide 400 mg 12/05/21 09:00 01/06/22 07:52 Magnesium Oxide 400 Mg Tablet PO 400 mg DAILY MARY Administration Multivitamins 1 tab 12/05/21 09:00 01/06/22 07:53 Multivitamin Tablet PO 1 tab DAILY MARY Administration Nicotine 1 patch 01/03/22 09:00 01/06/22 07:51 Nicotine 7 Mg Patch TOP 1 patch DAILY MARY Administration Olanzapine 5 mg 12/07/21 21:00 01/05/22 21:51 Olanzapine Odt 5 Mg Tablet TL 5 mg HS MARY Administration Polyethylene Glycol 17 gm 12/09/21 14:00 01/06/22 07:51 Polyethylene Glycol 3350 17 Gm Packet PO 17 gm DAILY MARY Administration Quetiapine Fumarate 50 mg 12/10/21 21:00 01/05/22 21:51 Quetiapine 25 Mg Tablet PO 50 mg QPM MARY Administration Thiamine HCl 100 mg 12/04/21 09:00 01/06/22 07:52 Thiamine 100 Mg Tablet PO 100 mg DAILY MARY Administration - Lab Result Fish Bone Diagrams: 12/12/21 08:07 12/12/21 08:07 Subjective - Subjective Patient Reports: Resting Comfortably Objective Vital Signs: Vital Signs - 24 hr 01/06/22 07:45 Temperature 36.6 C Heart Rate [ 109 H Brachial] Respiratory 20 Rate Blood Pressure 112/93 H [Right Radial artery] O2 Saturation 95 Oxygen O2 Source Room air I&O (Last 24 Hrs): Intake and Output Totals x24h 01/04/22 01/05/22 01/06/22 23:59 23:59 23:59 Intake Total 1730 2480 240 Balance 1730 2480 240 General: Alert, Cooperative, No acute distress HEENT: Atraumatic Neck: Supple Lymphatic: no adenopathy Neuro: Alert, Non Focal Cardiovascular: Regular rate, Normal S1, Normal S2 Respiratory: Chest non-tender, No respiratory distress Abdomen: Normal bowel sounds, Soft, No tenderness Extremities: Normal pulses - Results Results: Laboratory Results WBC 3.4 x10^3/uL (4.8-10.8) L 12/12/21 08:07 RBC 4.17 10^6/uL (4.70-6.10) L 12/12/21 08:07 Hgb 13.2 g/dL (14.0-18.0) L 12/12/21 08:07 Hct 40.3 % (42.0-52.0) L 12/12/21 08:07 MCV 96.6 fL (80.0-94.0) H 12/12/21 08:07 MCH 31.7 pg (27.0-31.0) H 12/12/21 08:07 MCHC 32.8 g/dL (32.0-36.0) 12/12/21 08:07 RDW 13.7 % (12.0-15.0) 12/12/21 08:07 Plt Count 146 10^3/uL (130-450) 12/12/21 08:07 MPV 12.8 fL (7.4-11.4) H 12/12/21 08:07 Neut # (Auto) 1.5 10^3/uL (1.5-6.6) 12/12/21 08:07 Lymph # (Auto) 1.4 10^3/uL (1.5-3.5) L 12/12/21 08:07 [place] # (Auto) 0.4 10^3/uL (0.0-1.0) 12/12/21 08:07 Eos # (Auto) 0.1 10^3/uL (0.0-0.7) 12/12/21 08:07 Baso # (Auto) 0.1 10^3/uL (0.0-0.1) 12/12/21 08:07 Absolute Nucleated RBC 0.00 x10^3/uL 12/12/21 08:07 Nucleated RBC % 0.0 /100WBC 12/12/21 08:07 PT 15.1 secs (9.9-12.6) H 12/04/21 23:33 INR 1.4 (0.8-1.2) H 12/04/21 23:33 APTT 24.8 secs (24.9-33.3) L 12/03/21 18:20 Sodium 135 mmol/L (135-145) 12/12/21 08:07 Potassium 3.8 mmol/L (3.5-5.0) 12/12/21 08:07 Chloride 101 mmol/L (101-111) 12/12/21 08:07 Carbon Dioxide 24 mmol/L (21-32) 12/12/21 08:07 Anion Gap 10.0 (6-13) 12/12/21 08:07 BUN 19 mg/dL (6-20) 12/12/21 08:07 Creatinine 0.7 mg/dL (0.6-1.2) 12/12/21 08:07 Estimated GFR (MDRD) 114 (>89) 12/12/21 08:07 Glucose 121 mg/dL (70-100) H 12/12/21 08:07 Calcium 8.7 mg/dL (8.5-10.3) 12/12/21 08:07 Phosphorus 3.6 mg/dL (2.5-4.6) 12/06/21 07:04 Magnesium 2.0 mg/dL (1.7-2.8) 12/06/21 07:04 Total Bilirubin 0.5 mg/dL (0.2-1.0) 12/12/21 08:07 Direct Bilirubin < 0.1 mg/dL (0.1-0.5) L 12/09/21 07:55 AST 149 IU/L (10-42) H 12/12/21 08:07 ALT 254 IU/L (10-60) H 12/12/21 08:07 Alkaline Phosphatase 80 IU/L (42-121) 12/12/21 08:07 Ammonia 12.5 umol/L (7-35) 12/08/21 07:54 Total Protein 7.1 g/dL (6.7-8.2) 12/12/21 08:07 Albumin 3.7 g/dL (3.2-5.5) 12/12/21 08:07 Globulin 3.4 g/dL (2.1-4.2) 12/12/21 08:07 Albumin/Globulin Ratio 1.1 (1.0-2.2) 12/12/21 08:07 Lipase 28 U/L (22-51) 12/06/21 07:04 Whole Bld Vitamin B1 TNP 12/04/21 16:52 TSH 1.25 uIU/mL (0.34-5.60) 12/03/21 18:20 Urine Color YELLOW 12/03/21 18:26 Urine Clarity CLEAR (CLEAR) 12/03/21 18:26 Urine pH 6.5 PH (5.0-7.5) 12/03/21 18:26 Ur Specific [place] 1.020 (1.002-1.030) 12/03/21 18:26 Urine Protein NEGATIVE mg/dL (NEGATIVE) 12/03/21 18:26 Urine Glucose (UA) NEGATIVE mg/dL (NEGATIVE) 12/03/21 18:26 Urine Ketones NEGATIVE mg/dL (NEGATIVE) 12/03/21 18:26 Urine Occult Blood NEGATIVE (NEGATIVE) 12/03/21 18: Urine Nitrite NEGATIVE (NEGATIVE) 12/03/21 18:26 Urine Bilirubin NEGATIVE (NEGATIVE) 12/03/21 18:26 Urine Urobilinogen 0.2 (NORMAL) E.U./dL (NORMAL) 12/03/21 18:26 Ur Leukocyte Esterase NEGATIVE (NEGATIVE) 12/03/21 18:26 Ur Microscopic Review NOT INDICATED 12/03/21 18:26 Urine Culture Comments NOT INDICATED 12/03/21 18:26 Nasal Adenovirus (PCR) NOT DETECTED 12/20/21 19:10 Nasal B. parapertussis DNA (PCR) NOT DETECTED 12/20/21 19:10 Nasal Coronavir 229E PCR NOT DETECTED 12/20/21 19:10 Nasal Coronavir HKU1 PCR NOT DETECTED 12/20/21 19:10 Nasal Coronavir NL63 PCR NOT DETECTED 12/20/21 19:10 Nasal Coronavir OC43 PCR NOT DETECTED 12/20/21 19:10 Nasal Enterovir/Rhinovir PCR NOT DETECTED 12/20/21 19:10 Nasal Influenza B PCR NOT DETECTED 12/20/21 19:10 Nasal Influenza A PCR NOT DETECTED 12/20/21 19:10 Nasal Parainfluen 1 PCR NOT DETECTED 12/20/21 19:10 Nasal Parainfluen 2 PCR NOT DETECTED 12/20/21 19:10 Nasal Parainfluen 3 PCR NOT DETECTED 12/20/21 19:10 Nasal Parainfluen 4 PCR NOT DETECTED 12/20/21 19:10 Nasal RSV (PCR) NOT DETECTED 12/20/21 19:10 Nasal B.pertussis DNA PCR NOT DETECTED 12/20/21 19:10 Nasal C.pneumoniae (PCR) NOT DETECTED 12/20/21 19:10 Juan Daniel Human Metapneumo PCR NOT DETECTED 12/20/21 19:10 Nasal M.pneumoniae (PCR) NOT DETECTED 12/20/21 19:10 Nasal SARS-CoV-2 (PCR) DETECTED A 12/20/21 19:10 Salicylates < 6.0 mg/dL 12/03/21 18:20 Urine Opiates Screen NEGATIVE (NEGATIVE) 12/03/21 18:26 Ur Oxycodone Screen NEGATIVE (NEGATIVE) 12/03/21 18:26 Urine Methadone Screen NEGATIVE (NEGATIVE) 12/03/21 18:26 Ur Propoxyphene Screen NEGATIVE (NEGATIVE) 12/03/21 18:26 Acetaminophen < 10 ug/mL (10-30) L 12/03/21 18:20 Ur Barbiturates Screen NEGATIVE (NEGATIVE) 12/03/21 18:26 Ur Tricyclics Screen NEGATIVE (NEGATIVE) 12/03/21 18:26 Ur Phencyclidine Scrn NEGATIVE (NEGATIVE) 12/03/21 18:26 Ur Amphetamine Screen NEGATIVE (NEGATIVE) 12/03/21 18:26 U Methamphetamines Scrn NEGATIVE (NEGATIVE) 12/03/21 18:26 U Benzodiazepines Scrn POSITIVE (NEGATIVE) H 12/03/21 18:26 Urine Cocaine Screen NEGATIVE (NEGATIVE) 12/03/21 18:26 U Cannabinoids Screen NEGATIVE (NEGATIVE) 12/03/21 18:26 Ethyl Alcohol < 5.0 mg/dL 12/03/21 18:20 Sepsis Event Note (H) - Evaluation Current Stage of Sepsis: Ruled out ABX Reporting Has patient been on IV antibiotics over the past 48 hours?: No Current Medications - Current Medications Current Medications: Active Medications Docusate Sodium (Docusate Sodium 250 Mg Capsule) 250 - 500 mg PO DAILY PRN PRN Reason: Constipation Haloperidol (Haloperidol 1 Mg Tablet) 2 mg PO DAILY [facility] Last Admin: 01/06/22 07:52 Dose: 2 mg Ibuprofen (Ibuprofen 400 Mg Tablet) 400 mg PO Q6HR PRN PRN Reason: Pain or Fever > 38C (100.4F) Magnesium Oxide (Magnesium Oxide 400 Mg Tablet) 400 mg PO DAILY [facility] Last Admin: 01/06/22 07:52 Dose: 400 mg Multivitamins (Multivitamin Tablet) 1 tab PO DAILY [facility] Last Admin: 01/06/22 07:53 Dose: 1 tab Nicotine (Nicotine 7 Mg Patch) 1 patch TOP DAILY [facility] Last Admin: 01/06/22 07:51 Dose: 1 patch Olanzapine (Olanzapine Odt 5 Mg Tablet) 5 mg TL HS [facility] Last Admin: 01/05/22 21:51 Dose: 5 mg Polyethylene Glycol (Polyethylene Glycol 3350 17 Gm Packet) 17 gm PO DAILY [facility] Last Admin: 01/06/22 07:51 Dose: 17 gm Quetiapine Fumarate (Quetiapine 25 Mg Tablet) 50 mg PO QPM [facility] Last Admin: 01/05/22 21:51 Dose: 50 mg Senna (Senna 8.6 Mg Tablet) 8.6 - 17.2 mg PO DAILY PRN PRN Reason: Constipation Thiamine HCl (Thiamine 100 Mg Tablet) 100 mg PO DAILY MARY Last Admin: 01/06/22 07:52 Dose: 100 mg Magnesium Oxide [Mag Ox] 400 mg PO DAILY 12/01/21 Multivitamin [Theragran] 1 each PO DAILY 12/01/21
[2022-01-06] MEDS: OLANZapine ODT 5 MG TABLET TL SCH (20:20)
[2022-01-06] MEDS: QUEtiapine 25 MG TABLET PO SCH (20:20)
[2022-01-07] MEDS: MAGNESIUM OXIDE 400 MG TABLET PO SCH (08:10)
[2022-01-07] MEDS: haloperidoL 1 MG TABLET PO SCH (08:10)
[2022-01-07] MEDS: THIAMINE 100 MG TABLET PO SCH (08:10)
[2022-01-07] MEDS: MULTIVITAMIN TABLET PO SCH (08:10)
[2022-01-07] MEDS: NICOTINE 7 MG PATCH TOP SCH (08:11)
[2022-01-07] MEDS: polyethylene glycoL 3350 17 GM PACKET PO SCH (08:11)
--- NOTE | 2022-01-07 17:31 | PROVIDER PROGRESS NOTE ---
Assessment/Plan - Problem List (1) Metabolic encephalopathy Assessment/Plan: 3 pt walk, ate 100% meal. he is stable, cooperative. pt is pending for placement. 01/06 today pt is cooperative with stall and stable, pt ate whole his breakfast. pt ask lots of coffee to drink but which cause his agitation in the past. we will try use decaf for pt. pt walked out of hospital on yesterday, now pt has 1:1 safety observation. (2) Wernicke-Korsakoff syndrome (alcoholic) Assessment/Plan: 01/06 He has hx of chronic alcoholic abuse and chronic elevated liver enzyme. pt p resent a chronic finger tremor and cognitive impairment. pt had cognitive evaluation by OT, his score was 16/30. pt also had tele psychiatrist evaluation and pt has Haldol and Zyprexa. We are continuing PO Thaimine daily for this pt. He will again be on 1:1 monitoring. (3) COVID-19 Impression: Pt is asymptomatic without respiratory distress. pt walk at hallway. He is off of precautions. (4) Homeless single person Impression: pt's this situation further made his disposition difficult and he is required to have guardianship for his disposition. oyster worker was consulted and it might be a prolonged process and need extended period of time in hospitalization (5) Alcohol abuse Impression: He has hx of chronic alcoholic abuse and often intoxicated when in the ED in the past. He initially went through alcohol withdrawal many weeks ago, but this has now resolved. His librium was tapered to off. (6)elevated liver enzyme pt has hx of chronic alcoholic abuse which likely contribute to his elevated liver enzyme. pt ate all his meal, walk at hallway. pt already did not drink alcohol in this whole hospital stay now. hopefully pt continue stopping drinking of alcohol, followup with PCP and GI as out-pt after d/c to monitor. - Current Meds Current Meds: Current Medications Generic Name Dose Route Start Last Admin Trade Name Debby PRN Reason Stop Dose Admin Haloperidol 2 mg 12/19/21 21:00 01/07/22 08:10 Haloperidol 1 Mg Tablet PO 2 mg DAILY MARY Administration Magnesium Oxide 400 mg 12/05/21 09:00 01/07/22 08:10 Magnesium Oxide 400 Mg Tablet PO 400 mg DAILY MARY Administration Multivitamins 1 tab 12/05/21 09:00 01/07/22 08:10 Multivitamin Tablet PO 1 tab DAILY MARY Administration Nicotine 1 patch 01/03/22 09:00 01/07/22 08:11 Nicotine 7 Mg Patch TOP 1 patch DAILY MARY Administration Olanzapine 5 mg 12/07/21 21:00 01/06/22 20:20 Olanzapine Odt 5 Mg Tablet TL 5 mg HS MARY Administration Polyethylene Glycol 17 gm 12/09/21 14:00 01/07/22 08:11 Polyethylene Glycol 3350 17 Gm Packet PO 17 gm DAILY MARY Administration Quetiapine Fumarate 50 mg 12/10/21 21:00 01/06/22 20:20 Quetiapine 25 Mg Tablet PO 50 mg QPM MARY Administration Thiamine HCl 100 mg 12/04/21 09:00 01/07/22 08:10 Thiamine 100 Mg Tablet PO 100 mg DAILY MARY Administration - Lab Result Fish Bone Diagrams: 12/12/21 08:07 12/12/21 08:07 Subjective - Subjective Patient Reports: Resting Comfortably Objective Vital Signs: Vital Signs - 24 hr 01/07/22 09:00 Temperature 36.8 C Heart Rate [ 94 Brachial] Respiratory 18 Rate Blood Pressure 137/82 H [Right Radial artery] O2 Saturation 97 Oxygen O2 Source Room air I&O (Last 24 Hrs): Intake and Output Totals x24h 01/05/22 01/06/22 01/07/22 23:59 23:59 23:59 Intake Total 2480 2251 1440 Balance 2480 2251 1440 General: Alert, Cooperative, No acute distress HEENT: Atraumatic Neck: Supple Lymphatic: no adenopathy Neuro: Alert, Non Focal Cardiovascular: Regular rate, Normal S1, Normal S2 Respiratory: Chest non-tender, No respiratory distress Abdomen: Normal bowel sounds, Soft Extremities: Normal pulses - Results Results: Laboratory Results WBC 3.4 x10^3/uL (4.8-10.8) L 12/12/21 08:07 RBC 4.17 10^6/uL (4.70-6.10) L 12/12/21 08:07 Hgb 13.2 g/dL (14.0-18.0) L 12/12/21 08:07 Hct 40.3 % (42.0-52.0) L 12/12/21 08:07 MCV 96.6 fL (80.0-94.0) H 12/12/21 08:07 MCH 31.7 pg (27.0-31.0) H 12/12/21 08:07 MCHC 32.8 g/dL (32.0-36.0) 12/12/21 08:07 RDW 13.7 % (12.0-15.0) 12/12/21 08:07 Plt Count 146 10^3/uL (130-450) 12/12/21 08:07 MPV 12.8 fL (7.4-11.4) H 12/12/21 08:07 Neut # (Auto) 1.5 10^3/uL (1.5-6.6) 12/12/21 08:07 Lymph # (Auto) 1.4 10^3/uL (1.5-3.5) L 12/12/21 08:07 [place] # (Auto) 0.4 10^3/uL (0.0-1.0) 12/12/21 08:07 Eos # (Auto) 0.1 10^3/uL (0.0-0.7) 12/12/21 08:07 Baso # (Auto) 0.1 10^3/uL (0.0-0.1) 12/12/21 08:07 Absolute Nucleated RBC 0.00 x10^3/uL 12/12/21 08:07 Nucleated RBC % 0.0 /100WBC 12/12/21 08:07 PT 15.1 secs (9.9-12.6) H 12/04/21 23:33 INR 1.4 (0.8-1.2) H 12/04/21 23:33 APTT 24.8 secs (24.9-33.3) L 12/03/21 18:20 Sodium 135 mmol/L (135-145) 12/12/21 08:07 Potassium 3.8 mmol/L (3.5-5.0) 12/12/21 08:07 Chloride 101 mmol/L (101-111) 12/12/21 08:07 Carbon Dioxide 24 mmol/L (21-32) 12/12/21 08:07 Anion Gap 10.0 (6-13) 12/12/21 08:07 BUN 19 mg/dL (6-20) 12/12/21 08:07 Creatinine 0.7 mg/dL (0.6-1.2) 12/12/21 08:07 Estimated GFR (MDRD) 114 (>89) 12/12/21 08:07 Glucose 121 mg/dL (70-100) H 12/12/21 08:07 Calcium 8.7 mg/dL (8.5-10.3) 12/12/21 08:07 Phosphorus 3.6 mg/dL (2.5-4.6) 12/06/21 07:04 Magnesium 2.0 mg/dL (1.7-2.8) 12/06/21 07:04 Total Bilirubin 0.5 mg/dL (0.2-1.0) 12/12/21 08:07 Direct Bilirubin < 0.1 mg/dL (0.1-0.5) L 12/09/21 07:55 AST 149 IU/L (10-42) H 12/12/21 08:07 ALT 254 IU/L (10-60) H 12/12/21 08:07 Alkaline Phosphatase 80 IU/L (42-121) 12/12/21 08:07 Ammonia 12.5 umol/L (7-35) 12/08/21 07:54 Total Protein 7.1 g/dL (6.7-8.2) 12/12/21 08:07 Albumin 3.7 g/dL (3.2-5.5) 12/12/21 08:07 Globulin 3.4 g/dL (2.1-4.2) 12/12/21 08:07 Albumin/Globulin Ratio 1.1 (1.0-2.2) 12/12/21 08:07 Lipase 28 U/L (22-51) 12/06/21 07:04 Whole Bld Vitamin B1 TNP 12/04/21 16:52 TSH 1.25 uIU/mL (0.34-5.60) 12/03/21 18:20 Urine Color YELLOW 12/03/21 18:26 Urine Clarity CLEAR (CLEAR) 12/03/21 18:26 Urine pH 6.5 PH (5.0-7.5) 12/03/21 18:26 Ur Specific [place] 1.020 (1.002-1.030) 12/03/21 18:26 Urine Protein NEGATIVE mg/dL (NEGATIVE) 12/03/21 18:26 Urine Glucose (UA) NEGATIVE mg/dL (NEGATIVE) 12/03/21 18:26 Urine Ketones NEGATIVE mg/dL (NEGATIVE) 12/03/21 18:26 Urine Occult Blood NEGATIVE (NEGATIVE) 12/03/21 18:26 Urine Nitrite NEGATIVE (NEGATIVE) 12/03/21 18:26 Urine Bilirubin NEGATIVE (NEGATIVE) 12/03/21 18:26 Urine Urobilinogen 0.2 (NORMAL) E.U./dL (NORMAL) 12/03/21 18:26 Ur Leukocyte Esterase NEGATIVE (NEGATIVE) 12/03/21 18:26 Ur Microscopic Review NOT INDICATED 12/03/21 18:26 Urine Culture Comments NOT INDICATED 12/03/21 18:26 Nasal Adenovirus (PCR) NOT DETECTED 12/20/21 19:10 Nasal B. parapertussis DNA (PCR) NOT DETECTED 12/20/21 19:10 Nasal Coronavir 229E PCR NOT DETECTED 12/20/21 19:10 Nasal Coronavir HKU1 PCR NOT DETECTED 12/20/21 19:10 Nasal Coronavir NL63 PCR NOT DETECTED 12/20/21 19:10 Nasal Coronavir OC43 PCR NOT DETECTED 12/20/21 19:10 Nasal Enterovir/Rhinovir PCR NOT DETECTED 12/20/21 19:10 Nasal Influenza B PCR NOT DETECTED 12/20/21 19:10 Nasal Influenza A PCR NOT DETECTED 12/20/21 19:10 Nasal Parainfluen 1 PCR NOT DETECTED 12/20/21 19:10 Nasal Parainfluen 2 PCR NOT DETECTED 12/20/21 19:10 Nasal Parainfluen 3 PCR NOT DETECTED 12/20/21 19:10 Nasal Parainfluen 4 PCR NOT DETECTED 12/20/21 19:10 Nasal RSV (PCR) NOT DETECTED 12/20/21 19:10 Nasal B.pertussis DNA PCR NOT DETECTED 12/20/21 19:10 Nasal C.pneumoniae (PCR) NOT DETECTED 12/20/21 19:10 Juan Daniel Human Metapneumo PCR NOT DETECTED 12/20/21 19:10 Nasal M.pneumoniae (PCR) NOT DETECTED 12/20/21 19:10 Nasal SARS-CoV-2 (PCR) DETECTED A 12/20/21 19:10 Salicylates < 6.0 mg/dL 12/03/21 18:20 Urine Opiates Screen NEGATIVE (NEGATIVE) 12/03/21 18:26 Ur Oxycodone Screen NEGATIVE (NEGATIVE) 12/03/21 18:26 Urine Methadone Screen NEGATIVE (NEGATIVE) 12/03/21 18:26 Ur Propoxyphene Screen NEGATIVE (NEGATIVE) 12/03/21 18:26 Acetaminophen < 10 ug/mL (10-30) L 12/03/21 18:20 Ur Barbiturates Screen NEGATIVE (NEGATIVE) 12/03/21 18:26 Ur Tricyclics Screen NEGATIVE (NEGATIVE) 12/03/21 18:26 Ur Phencyclidine Scrn NEGATIVE (NEGATIVE) 12/03/21 18:26 Ur Amphetamine Screen NEGATIVE (NEGATIVE) 12/03/21 18:26 U Methamphetamines Scrn NEGATIVE (NEGATIVE) 12/03/21 18:26 U Benzodiazepines Scrn POSITIVE (NEGATIVE) H 12/03/21 18:26 Urine Cocaine Screen NEGATIVE (NEGATIVE) 12/03/21 18:26 U Cannabinoids Screen NEGATIVE (NEGATIVE) 12/03/21 18:26 Ethyl Alcohol < 5.0 mg/dL 12/03/21 18:20 Sepsis Event Note (H) - Evaluation Current Stage of Sepsis: Ruled out ABX Reporting Has patient been on IV antibiotics over the past 48 hours?: No Current Medications - Current Medications Current Medications: Active Medications Docusate Sodium (Docusate Sodium 250 Mg Capsule) 250 - 500 mg PO DAILY PRN PRN Reason: Constipation Haloperidol (Haloperidol 1 Mg Tablet) 2 mg PO DAILY [facility] Last Admin: 01/08/22 07:56 Dose: 2 mg Ibuprofen (Ibuprofen 400 Mg Tablet) 400 mg PO Q6HR PRN PRN Reason: Pain or Fever > 38C (100.4F) Magnesium Oxide (Magnesium Oxide 400 Mg Tablet) 400 mg PO DAILY [facility] Last Admin: 01/08/22 07:57 Dose: 400 mg Multivitamins (Multivitamin Tablet) 1 tab PO DAILY [facility] Last Admin: 01/08/22 07:57 Dose: 1 tab Nicotine (Nicotine 7 Mg Patch) 1 patch TOP DAILY [facility] Last Admin: 01/08/22 08:00 Dose: 1 patch Olanzapine (Olanzapine Odt 5 Mg Tablet) 5 mg TL HS [facility] Last Admin: 01/07/22 21:24 Dose: 5 mg Polyethylene Glycol (Polyethylene Glycol 3350 17 Gm Packet) 17 gm PO DAILY [facility] Last Admin: 01/08/22 07:57 Dose: 17 gm Quetiapine Fumarate (Quetiapine 25 Mg Tablet) 50 mg PO QPM [facility] Last Admin: 01/07/22 21:24 Dose: 50 mg Senna (Senna 8.6 Mg Tablet) 8.6 - 17.2 mg PO DAILY PRN PRN Reason: Constipation Thiamine HCl (Thiamine 100 Mg Tablet) 100 mg PO DAILY [facility] Last Admin: 01/08/22 07:58 Dose: 100 mg Magnesium Oxide [Mag Ox] 400 mg PO DAILY 12/01/21 Multivitamin [Theragran] 1 each PO DAILY 12/01/21
[2022-01-07] MEDS: OLANZapine ODT 5 MG TABLET TL SCH (21:24)
[2022-01-07] MEDS: QUEtiapine 25 MG TABLET PO SCH (21:24)
[2022-01-08] MEDS: haloperidoL 1 MG TABLET PO SCH (07:56)
[2022-01-08] MEDS: MULTIVITAMIN TABLET PO SCH (07:57)
[2022-01-08] MEDS: polyethylene glycoL 3350 17 GM PACKET PO SCH (07:57)
[2022-01-08] MEDS: MAGNESIUM OXIDE 400 MG TABLET PO SCH (07:57)
[2022-01-08] MEDS: THIAMINE 100 MG TABLET PO SCH (07:58)
[2022-01-08] MEDS: NICOTINE 7 MG PATCH TOP SCH (08:00)
--- NOTE | 2022-01-08 08:20 | PROVIDER PROGRESS NOTE ---
Assessment/Plan - Problem List (1) Metabolic encephalopathy Assessment/Plan: 3 pt smile and happy, eating his breakfast. pt is stable, pending for placement. 01/07 pt walk, ate 100% meal. he is stable, cooperative. pt is pending for placement. 01/06 today pt is cooperative with stall and stable, pt ate whole his breakfast. pt ask lots of coffee to drink but which cause his agitation in the past. we wi ll try use decaf for pt. pt walked out of hospital on yesterday, now pt has 1:1 safety observation. (2) Wernicke-Korsakoff syndrome (alcoholic) Assessment/Plan: 01/06 He has hx of chronic alcoholic abuse and chronic elevated liver enzyme. pt present a chronic finger tremor and cognitive impairment. pt had cognitive evaluation by OT, his score was 16/30. pt also had tele psychiatrist evaluation and pt has Haldol and Zyprexa. We are continuing PO Thaimine daily for this pt. He will again be on 1:1 monitoring. (3) COVID-19 Impression: Pt is asymptomatic without respiratory distress. pt walk at hallway. He is off of precautions. (4) Homeless single person Impression: pt's this situation further made his disposition difficult and he is required to have guardianship for his disposition. radio survey worker was consulted and it might be a prolonged process and need extended period of time in hospitalization (5) Alcohol abuse Impression: He has hx of chronic alcoholic abuse and often intoxicated when in the ED in the past. He initially went through alcohol withdrawal many weeks ago, but this has now resolved. His librium was tapered to off. (6)elevated liver enzyme pt has hx of chronic alcoholic abuse which likely contribute to his elevated liver enzyme. pt ate all his meal, walk at hallway. pt already did not drink alcohol in this whole hospital stay now. hopefully pt continue stopping drinking of alcohol, followup with PCP and GI as out-pt after d/c to monitor. - Current Meds Current Meds: Current Medications Generic Name Dose Route Start Last Admin Trade Name Debby PRN Reason Stop Dose Admin Haloperidol 2 mg 12/19/21 21:00 01/08/22 07:56 Haloperidol 1 Mg Tablet PO 2 mg DAILY MARY Administration Magnesium Oxide 400 mg 12/05/21 09:00 01/08/22 07:57 Magnesium Oxide 400 Mg Tablet PO 400 mg DAILY MARY Administration Multivitamins 1 tab 12/05/21 09:00 01/08/22 07:57 Multivitamin Tablet PO 1 tab DAILY MARY Administration Nicotine 1 patch 01/03/22 09:00 01/08/22 08:00 Nicotine 7 Mg Patch TOP 1 patch DAILY MARY Administration Olanzapine 5 mg 12/07/21 21:00 01/07/22 21:24 Olanzapine Odt 5 Mg Tablet TL 5 mg HS MARY Administration Polyethylene Glycol 17 gm 12/09/21 14:00 01/08/22 07:57 Polyethylene Glycol 3350 17 Gm Packet PO 17 gm DAILY MARY Administration Quetiapine Fumarate 50 mg 12/10/21 21:00 01/07/22 21:24 Quetiapine 25 Mg Tablet PO 50 mg QPM MARY Administration Thiamine HCl 100 mg 12/04/21 09:00 01/08/22 07:58 Thiamine 100 Mg Tablet PO 100 mg DAILY MARY Administration - Lab Result Fish Bone Diagrams: 12/12/21 08:07 12/12/21 08:07 Subjective - Subjective Patient Reports: Resting Comfortably Objective Vital Signs: Vital Signs - 24 hr 01/07/22 01/08/22 09:00 08:00 Temperature 36.8 C 36.4 C L Heart Rate [ 94 Brachial] Heart Rate [ 92 Radial] Respiratory 18 14 Rate Blood Pressure 118/87 H [Right Brachial artery] Blood Pressure 137/82 H [Right Radial artery] O2 Saturation 97 96 Oxygen O2 Source Room air I&O (Last 24 Hrs): Intake and Output Totals x24h 01/06/22 01/07/22 01/08/22 23:59 23:59 23:59 Intake Total 2251 2160 820 Balance 2251 2160 820 General: Alert, Cooperative, No acute distress HEENT: Atraumatic Neck: Supple Lymphatic: no adenopathy Neuro: Alert, Non Focal Cardiovascular: Regular rate, Normal S1, Normal S2 Respiratory: Chest non-tender, No respiratory distress Abdomen: Normal bowel sounds, Soft, No tenderness Extremities: Normal pulses - Results Results: Laboratory Results WBC 3.4 x10^3/uL (4.8-10.8) L 12/12/21 08:07 RBC 4.17 10^6/uL (4.70-6.10) L 12/12/21 08:07 Hgb 13.2 g/dL (14.0-18.0) L 12/12/21 08:07 Hct 40.3 % (42.0-52.0) L 12/12/21 08:07 MCV 96.6 fL (80.0-94.0) H 12/12/21 08:07 MCH 31.7 pg (27.0-31.0) H 12/12/21 08:07 MCHC 32.8 g/dL (32.0-36.0) 12/12/21 08:07 RDW 13.7 % (12.0-15.0) 12/12/21 08:07 Plt Count 146 10^3/uL (130-450) 12/12/21 08:07 MPV 12.8 fL (7.4-11.4) H 12/12/21 08:07 Neut # (Auto) 1.5 10^3/uL (1.5-6.6) 12/12/21 08:07 Lymph # (Auto) 1.4 10^3/uL (1.5-3.5) L 12/12/21 08:07 [place] # (Auto) 0.4 10^3/uL (0.0-1.0) 12/12/21 08:07 Eos # (Auto) 0.1 10^3/uL (0.0-0.7) 12/12/21 08:07 Baso # (Auto) 0.1 10^3/uL (0.0-0.1) 12/12/21 08:07 Absolute Nucleated RBC 0.00 x10^3/uL 12/12/21 08:07 Nucleated RBC % 0.0 /100WBC 12/12/21 08:07 PT 15.1 secs (9.9-12.6) H 12/04/21 23:33 INR 1.4 (0.8-1.2) H 12/04/21 23:33 APTT 24.8 secs (24.9-33.3) L 12/03/21 18:20 Sodium 135 mmol/L (135-145) 12/12/21 08:07 Potassium 3.8 mmol/L (3.5-5.0) 12/12/21 08:07 Chloride 101 mmol/L (101-111) 12/12/21 08:07 Carbon Dioxide 24 mmol/L (21-32) 12/12/21 08:07 Anion Gap 10.0 (6-13) 12/12/21 08:07 BUN 19 mg/dL (6-20) 12/12/21 08:07 Creatinine 0.7 mg/dL (0.6-1.2) 12/12/21 08:07 Estimated GFR (MDRD) 114 (>89) 12/12/21 08:07 Glucose 121 mg/dL (70-100) H 12/12/21 08:07 Calcium 8.7 mg/dL (8.5-10.3) 12/12/21 08:07 Phosphorus 3.6 mg/dL (2.5-4.6) 12/06/21 07:04 Magnesium 2.0 mg/dL (1.7-2.8) 12/06/21 07:04 Total Bilirubin 0.5 mg/dL (0.2-1.0) 12/12/21 08:07 Direct Bilirubin < 0.1 mg/dL (0.1-0.5) L 12/09/21 07:55 AST 149 IU/L (10-42) H 12/12/21 08:07 ALT 254 IU/L (10-60) H 12/12/21 08:07 Alkaline Phosphatase 80 IU/L (42-121) 12/12/21 08:07 Ammonia 12.5 umol/L (7-35) 12/08/21 07:54 Total Protein 7.1 g/dL (6.7-8.2) 12/12/21 08:07 Albumin 3.7 g/dL (3.2-5.5) 12/12/21 08:07 Globulin 3.4 g/dL (2.1-4.2) 12/12/21 08:07 Albumin/Globulin Ratio 1.1 (1.0-2.2) 12/12/21 08:07 Lipase 28 U/L (22-51) 12/06/21 07:04 Whole Bld Vitamin B1 TNP 12/04/21 16:52 TSH 1.25 uIU/mL (0.34-5.60) 12/03/21 18:20 Urine Color YELLOW 12/03/21 18:26 Urine Clarity CLEAR (CLEAR) 12/03/21 18:26 Urine pH 6.5 PH (5.0-7.5) 12/03/21 18:26 Ur Specific [place] 1.020 (1.002-1.030) 12/03/21 18:26 Urine Protein NEGATIVE mg/dL (NEGATIVE) 12/03/21 18:26 Urine Glucose (UA) NEGATIVE mg/dL (NEGATIVE) 12/03/21 18: Urine Ketones NEGATIVE mg/dL (NEGATIVE) 12/03/21 18: Urine Occult Blood NEGATIVE (NEGATIVE) 12/03/21 18: Urine Nitrite NEGATIVE (NEGATIVE) 12/03/21 18: Urine Bilirubin NEGATIVE (NEGATIVE) 12/03/21 18: Urine Urobilinogen 0.2 (NORMAL) E.U./dL (NORMAL) 12/03/21 18: Ur Leukocyte Esterase NEGATIVE (NEGATIVE) 12/03/21 18:26 Ur Microscopic Review NOT INDICATED 12/03/21 18: Urine Culture Comments NOT INDICATED 12/03/21 18:26 Nasal Adenovirus (PCR) NOT DETECTED 12/20/21 19:10 Nasal B. parapertussis DNA (PCR) NOT DETECTED 12/20/21 19:10 Nasal Coronavir 229E PCR NOT DETECTED 12/20/21 19:10 Nasal Coronavir HKU1 PCR NOT DETECTED 12/20/21 19:10 Nasal Coronavir NL63 PCR NOT DETECTED 12/20/21 19:10 Nasal Coronavir OC43 PCR NOT DETECTED 12/20/21 19:10 Nasal Enterovir/Rhinovir PCR NOT DETECTED 12/20/21 19:10 Nasal Influenza B PCR NOT DETECTED 12/20/21 19:10 Nasal Influenza A PCR NOT DETECTED 12/20/21 19:10 Nasal Parainfluen 1 PCR NOT DETECTED 12/20/21 19:10 Nasal Parainfluen 2 PCR NOT DETECTED 12/20/21 19:10 Nasal Parainfluen 3 PCR NOT DETECTED 12/20/21 19:10 Nasal Parainfluen 4 PCR NOT DETECTED 12/20/21 19:10 Nasal RSV (PCR) NOT DETECTED 12/20/21 19:10 Nasal B.pertussis DNA PCR NOT DETECTED 12/20/21 19:10 Nasal C.pneumoniae (PCR) NOT DETECTED 12/20/21 19:10 Juan Daniel Human Metapneumo PCR NOT DETECTED 12/20/21 19:10 Nasal M.pneumoniae (PCR) NOT DETECTED 12/20/21 19:10 Nasal SARS-CoV-2 (PCR) DETECTED A 12/20/21 19:10 Salicylates < 6.0 mg/dL 12/03/21 18:20 Urine Opiates Screen NEGATIVE (NEGATIVE) 12/03/21 18:26 Ur Oxycodone Screen NEGATIVE (NEGATIVE) 12/03/21 18:26 Urine Methadone Screen NEGATIVE (NEGATIVE) 12/03/21 18:26 Ur Propoxyphene Screen NEGATIVE (NEGATIVE) 12/03/21 18:26 Acetaminophen < 10 ug/mL (10-30) L 12/03/21 18:20 Ur Barbiturates Screen NEGATIVE (NEGATIVE) 12/03/21 18:26 Ur Tricyclics Screen NEGATIVE (NEGATIVE) 12/03/21 18:26 Ur Phencyclidine Scrn NEGATIVE (NEGATIVE) 12/03/21 18:26 Ur Amphetamine Screen NEGATIVE (NEGATIVE) 12/03/21 18:26 U Methamphetamines Scrn NEGATIVE (NEGATIVE) 12/03/21 18:26 U Benzodiazepines Scrn POSITIVE (NEGATIVE) H 12/03/21 18:26 Urine Cocaine Screen NEGATIVE (NEGATIVE) 12/03/21 18:26 U Cannabinoids Screen NEGATIVE (NEGATIVE) 12/03/21 18:26 Ethyl Alcohol < 5.0 mg/dL 12/03/21 18:20 Sepsis Event Note (H) - Evaluation Current Stage of Sepsis: Ruled out ABX Reporting Has patient been on IV antibiotics over the past 48 hours?: No Current Medications - Current Medications Current Medications: Active Medications Docusate Sodium (Docusate Sodium 250 Mg Capsule) 250 - 500 mg PO DAILY PRN PRN Reason: Constipation Haloperidol (Haloperidol 1 Mg Tablet) 2 mg PO DAILY [facility] [place] Last Admin: 01/08/22 07:56 Dose: 2 mg Ibuprofen (Ibuprofen 400 Mg Tablet) 400 mg PO Q6HR PRN PRN Reason: Pain or Fever > 38C (100.4F) Magnesium Oxide (Magnesium Oxide 400 Mg Tablet) 400 mg PO DAILY [facility] Last Admin: 01/08/22 07:57 Dose: 400 mg Multivitamins (Multivitamin Tablet) 1 tab PO DAILY [facility] Last Admin: 01/08/22 07:57 Dose: 1 tab Nicotine (Nicotine 7 Mg Patch) 1 patch TOP DAILY [facility] Last Admin: 01/08/22 08:00 Dose: 1 patch Olanzapine (Olanzapine Odt 5 Mg Tablet) 5 mg TL HS [facility] [place] Last Admin: 01/07/22 21:24 Dose: 5 mg Polyethylene Glycol (Polyethylene Glycol 3350 17 Gm Packet) 17 gm PO DAILY [facility] Last Admin: 01/08/22 07:57 Dose: 17 gm Quetiapine Fumarate (Quetiapine 25 Mg Tablet) 50 mg PO QPM [facility] [place] Last Admin: 01/07/22 21:24 Dose: 50 mg Senna (Senna 8.6 Mg Tablet) 8.6 - 17.2 mg PO DAILY PRN PRN Reason: Constipation Thiamine HCl (Thiamine 100 Mg Tablet) 100 mg PO DAILY [facility] [place] Last Admin: 01/08/22 07:58 Dose: 100 mg Magnesium Oxide [Mag Ox] 400 mg PO DAILY 12/01/21 Multivitamin [Theragran] 1 each PO DAILY 12/01/21
[2022-01-08] MEDS: OLANZapine ODT 5 MG TABLET TL SCH (21:47)
[2022-01-08] MEDS: QUEtiapine 25 MG TABLET PO SCH (21:47)
[2022-01-09] MEDS: NICOTINE 7 MG PATCH TOP SCH (08:57)
[2022-01-09] MEDS: haloperidoL 1 MG TABLET PO SCH (09:03)
[2022-01-09] MEDS: MAGNESIUM OXIDE 400 MG TABLET PO SCH (09:03)
[2022-01-09] MEDS: THIAMINE 100 MG TABLET PO SCH (09:04)
[2022-01-09] MEDS: MULTIVITAMIN TABLET PO SCH (09:04)
[2022-01-09] MEDS: polyethylene glycoL 3350 17 GM PACKET PO SCH (09:06)
--- NOTE | 2022-01-09 10:38 | PROVIDER PROGRESS NOTE ---
Assessment/Plan - Problem List (1) Metabolic encephalopathy Assessment/Plan: 3/ pt is happy and eating his breakfast, pt has no complaints. pt is stable and pending for replacement. 3/ pt smile and happy, eating his breakfast. pt is stable, pending for placement. 3/ pt walk, ate 100% meal. he is stable, cooperative. pt is pending for placement. 01/06 today pt is cooperative with stall and stable, pt ate whole his breakfast. pt ask lots of coffee to drink but which cause his agitation in the past. we will try use decaf for pt. pt walked out of hospital on yesterday, now pt has 1:1 safety observation. (2) Wernicke-Korsakoff syndrome (alcoholic) Assessment/Plan: He has hx of chronic alcoholic abuse and chronic elevated liver enzyme. pt present a chronic finger tremor and cognitive impairment. pt had cognitive evaluation by OT, his score was 16/30. pt also had tele psychiatrist evaluation and pt has Haldol and Zyprexa. We are continuing PO Thaimine daily for this pt. He will again be on 1:1 monitoring. (3) COVID-19 Impression: Pt is asymptomatic without respiratory distress. pt walk at hallway. He is off of precautions. (4) Homeless single person Impression: pt's this situation further made his disposition difficult and he is required to have guardianship for his disposition. driver utility worker was consulted and it might be a prolonged process and need extended period of time in hospitalization (5) Alcohol abuse Impression: He has hx of chronic alcoholic abuse and often intoxicated when in the ED in the past. He initially went through alcohol withdrawal many weeks ago, but this has now resolved. His librium was tapered to off. (6)elevated liver enzyme pt has hx of chronic alcoholic abuse which likely contribute to his elevated liver enzyme. pt ate all his meal, walk at hallway. pt already did not drink alcohol in this whole hospital stay now. hopefully pt continue stopping drinkin g of alcohol, followup with PCP and GI as out-pt after d/c to monitor. - Current Meds Current Meds: Current Medications Generic Name Dose Route Start Last Admin Trade Name Freq PRN Reason Stop Dose Admin Haloperidol 2 mg 12/19/21 21:00 01/09/22 09:03 Haloperidol 1 Mg Tablet PO 2 mg DAILY MARY Administration Magnesium Oxide 400 mg 12/05/21 09:00 01/09/22 09:03 Magnesium Oxide 400 Mg Tablet PO 400 mg DAILY MRAY Administration Multivitamins 1 tab 12/05/21 09:00 01/09/22 09:04 Multivitamin Tablet PO 1 tab DAILY MARY Administration Nicotine 1 patch 01/03/22 09:00 01/09/22 08:57 Nicotine 7 Mg Patch TOP 1 patch DAILY MARY Administration Olanzapine 5 mg 12/07/21 21:00 01/08/22 21:47 Olanzapine Odt 5 Mg Tablet TL 5 mg HS MARY Administration Polyethylene Glycol 17 gm 12/09/21 14:00 01/09/22 09:06 Polyethylene Glycol 3350 17 Gm Packet PO Not Given DAILY MARY Quetiapine Fumarate 50 mg 12/10/21 21:00 01/08/22 21:47 Quetiapine 25 Mg Tablet PO 50 mg QPM MARY Administration Thiamine HCl 100 mg 12/04/21 09:00 01/09/22 09:04 Thiamine 100 Mg Tablet PO 100 mg DAILY MARY Administration - Lab Result Fish Bone Diagrams: 12/12/21 08:07 12/12/21 08:07 Subjective - Subjective Patient Reports: Resting Comfortably, No Complaints Objective Vital Signs: Vital Signs - 24 hr 01/09/22 08:41 Temperature 36.3 C L Heart Rate [ 93 Radial] Respiratory 16 Rate Blood Pressure 136/83 H [Right Brachial artery] O2 Saturation 94 Oxygen O2 Source Room air I&O (Last 24 Hrs): Intake and Output Totals x24h 01/07/22 01/08/22 01/09/22 23:59 23:59 23:59 Intake Total 2160 0 1440 Balance 2160 0 1440 General: Alert, Cooperative, No acute distress HEENT: Atraumatic Neck: Supple Lymphatic: no adenopathy Neuro: Alert, Non Focal Cardiovascular: Regular rate, Normal S1, Normal S2 Respiratory: Chest non-tender, No respiratory distress Abdomen: Normal bowel sounds, Soft Extremities: Normal pulses - Results Results: Laboratory Results WBC 3.4 x10^3/uL (4.8-10.8) L 12/12/21 08:07 RBC 4.17 10^6/uL (4.70-6.10) L 12/12/21 08:07 Hgb 13.2 g/dL (14.0-18.0) L 12/12/21 08:07 Hct 40.3 % (42.0-52.0) L 12/12/21 08:07 MCV 96.6 fL (80.0-94.0) H 12/12/21 08:07 MCH 31.7 pg (27.0-31.0) H 12/12/21 08:07 MCHC 32.8 g/dL (32.0-36.0) 12/12/21 08:07 RDW 13.7 % (12.0-15.0) 12/12/21 08:07 Plt Count 146 10^3/uL (130-450) 12/12/21 08:07 MPV 12.8 fL (7.4-11.4) H 12/12/21 08:07 Neut # (Auto) 1.5 10^3/uL (1.5-6.6) 12/12/21 08:07 Lymph # (Auto) 1.4 10^3/uL (1.5-3.5) L 12/12/21 08:07 [place] # (Auto) 0.4 10^3/uL (0.0-1.0) 12/12/21 08:07 Eos # (Auto) 0.1 10^3/uL (0.0-0.7) 12/12/21 08:07 Baso # (Auto) 0.1 10^3/uL (0.0-0.1) 12/12/21 08:07 Absolute Nucleated RBC 0.00 x10^3/uL 12/12/21 08:07 Nucleated RBC % 0.0 /100WBC 12/12/21 08:07 PT 15.1 secs (9.9-12.6) H 12/04/21 23:33 INR 1.4 (0.8-1.2) H 12/04/21 23:33 APTT 24.8 secs (24.9-33.3) L 12/03/21 18:20 Sodium 135 mmol/L (135-145) 12/12/21 08:07 Potassium 3.8 mmol/L (3.5-5.0) 12/12/21 08:07 Chloride 101 mmol/L (101-111) 12/12/21 08:07 Carbon Dioxide 24 mmol/L (21-32) 12/12/21 08:07 Anion Gap 10.0 (6-13) 12/12/21 08:07 BUN 19 mg/dL (6-20) 12/12/21 08:07 Creatinine 0.7 mg/dL (0.6-1.2) 12/12/21 08:07 Estimated GFR (MDRD) 114 (>89) 12/12/21 08:07 Glucose 121 mg/dL (70-100) H 12/12/21 08:07 Calcium 8.7 mg/dL (8.5-10.3) 12/12/21 08:07 Phosphorus 3.6 mg/dL (2.5-4.6) 12/06/21 07:04 Magnesium 2.0 mg/dL (1.7-2.8) 12/06/21 07:04 Total Bilirubin 0.5 mg/dL (0.2-1.0) 12/12/21 08:07 Direct Bilirubin < 0.1 mg/dL (0.1-0.5) L 12/09/21 07:55 AST 149 IU/L (10-42) H 12/12/21 08:07 ALT 254 IU/L (10-60) H 12/12/21 08:07 Alkaline Phosphatase 80 IU/L (42-121) 12/12/21 08:07 Ammonia 12.5 umol/L (7-35) 12/08/21 07:54 Total Protein 7.1 g/dL (6.7-8.2) 12/12/21 08:07 Albumin 3.7 g/dL (3.2-5.5) 12/12/21 08:07 Globulin 3.4 g/dL (2.1-4.2) 12/12/21 08:07 Albumin/Globulin Ratio 1.1 (1.0-2.2) 12/12/21 08:07 Lipase 28 U/L (22-51) 12/06/21 07:04 Whole Bld Vitamin B1 TNP 12/04/21 16:52 TSH 1.25 uIU/mL (0.34-5.60) 12/03/21 18:20 Urine Color YELLOW 12/03/21 18:26 Urine Clarity CLEAR (CLEAR) 12/03/21 18:26 Urine pH 6.5 PH (5.0-7.5) 12/03/21 18:26 Ur Specific [place] 1.020 (1.002-1.030) 12/03/21 18: Urine Protein NEGATIVE mg/dL (NEGATIVE) 12/03/21 18: Urine Glucose (UA) NEGATIVE mg/dL (NEGATIVE) 12/03/21 18: Urine Ketones NEGATIVE mg/dL (NEGATIVE) 12/03/21 18: Urine Occult Blood NEGATIVE (NEGATIVE) 12/03/21 18: Urine Nitrite NEGATIVE (NEGATIVE) 12/03/21 18: Urine Bilirubin NEGATIVE (NEGATIVE) 12/03/21 18: Urine Urobilinogen 0.2 (NORMAL) E.U./dL (NORMAL) 12/03/21 18: Ur Leukocyte Esterase NEGATIVE (NEGATIVE) 12/03/21 18: Ur Microscopic Review NOT INDICATED 12/03/21 18: Urine Culture Comments NOT INDICATED 12/03/21 18:26 Nasal Adenovirus (PCR) NOT DETECTED 12/20/21 19:10 Nasal B. parapertussis DNA (PCR) NOT DETECTED 12/20/21 19:10 Nasal Coronavir 229E PCR NOT DETECTED 12/20/21 19:10 Nasal Coronavir HKU1 PCR NOT DETECTED 12/20/21 19:10 Nasal Coronavir NL63 PCR NOT DETECTED 12/20/21 19:10 Nasal Coronavir OC43 PCR NOT DETECTED 12/20/21 19:10 Nasal Enterovir/Rhinovir PCR NOT DETECTED 12/20/21 19:10 Nasal Influenza B PCR NOT DETECTED 12/20/21 19:10 Nasal Influenza A PCR NOT DETECTED 12/20/21 19:10 Nasal Parainfluen 1 PCR NOT DETECTED 12/20/21 19:10 Nasal Parainfluen 2 PCR NOT DETECTED 12/20/21 19:10 Nasal Parainfluen 3 PCR NOT DETECTED 12/20/21 19:10 Nasal Parainfluen 4 PCR NOT DETECTED 12/20/21 19:10 Nasal RSV (PCR) NOT DETECTED 12/20/21 19:10 Nasal B.pertussis DNA PCR NOT DETECTED 12/20/21 19:10 Nasal C.pneumoniae (PCR) NOT DETECTED 12/20/21 19:10 Juan Daniel Human Metapneumo PCR NOT DETECTED 12/20/21 19:10 Nasal M.pneumoniae (PCR) NOT DETECTED 12/20/21 19:10 Nasal SARS-CoV-2 (PCR) DETECTED A 02/12/22 19:10 Salicylates < 6.0 mg/dL 12/03/21 18:20 Urine Opiates Screen NEGATIVE (NEGATIVE) 12/03/21 18:26 Ur Oxycodone Screen NEGATIVE (NEGATIVE) 12/03/21 18:26 Urine Methadone Screen NEGATIVE (NEGATIVE) 12/03/21 18:26 Ur Propoxyphene Screen NEGATIVE (NEGATIVE) 12/03/21 18:26 Acetaminophen < 10 ug/mL (10-30) L 12/03/21 18:20 Ur Barbiturates Screen NEGATIVE (NEGATIVE) 12/03/21 18:26 Ur Tricyclics Screen NEGATIVE (NEGATIVE) 12/03/21 18:26 Ur Phencyclidine Scrn NEGATIVE (NEGATIVE) 12/03/21 18:26 Ur Amphetamine Screen NEGATIVE (NEGATIVE) 12/03/21 18:26 U Methamphetamines Scrn NEGATIVE (NEGATIVE) 12/03/21 18:26 U Benzodiazepines Scrn POSITIVE (NEGATIVE) H 12/03/21 18:26 Urine Cocaine Screen NEGATIVE (NEGATIVE) 12/03/21 18:26 U Cannabinoids Screen NEGATIVE (NEGATIVE) 12/03/21 18:26 Ethyl Alcohol < 5.0 mg/dL 12/03/21 18:20 Sepsis Event Note (H) - Evaluation Current Stage of Sepsis: Ruled out ABX Reporting Has patient been on IV antibiotics over the past 48 hours?: No Current Medications - Current Medications Current Medications: Active Medications Docusate Sodium (Docusate Sodium 250 Mg Capsule) 250 - 500 mg PO DAILY PRN PRN Reason: Constipation Haloperidol (Haloperidol 1 Mg Tablet) 2 mg PO DAILY [facility] Last Admin: 01/09/22 09:03 Dose: 2 mg Ibuprofen (Ibuprofen 400 Mg Tablet) 400 mg PO Q6HR PRN PRN Reason: Pain or Fever > 38C (100.4F) Magnesium Oxide (Magnesium Oxide 400 Mg Tablet) 400 mg PO DAILY [facility] Last Admin: 01/09/22 09:03 Dose: 400 mg Multivitamins (Multivitamin Tablet) 1 tab PO DAILY [facility] Last Admin: 01/09/22 09:04 Dose: 1 tab Nicotine (Nicotine 7 Mg Patch) 1 patch TOP DAILY [facility] Last Admin: 01/09/22 08:57 Dose: 1 patch Olanzapine (Olanzapine Odt 5 Mg Tablet) 5 mg TL HS [facility] Last Admin: 01/08/22 21:47 Dose: 5 mg Polyethylene Glycol (Polyethylene Glycol 3350 17 Gm Packet) 17 gm PO DAILY [facility] Last Admin: 01/09/22 09:06 Dose: Not Given Quetiapine Fumarate (Quetiapine 25 Mg Tablet) 50 mg PO QPM [facility] Last Admin: 01/08/22 21:47 Dose: 50 mg Senna (Senna 8.6 Mg Tablet) 8.6 - 17.2 mg PO DAILY PRN PRN Reason: Constipation Thiamine HCl (Thiamine 100 Mg Tablet) 100 mg PO DAILY [facility] Last Admin: 01/09/22 09:04 Dose: 100 mg Magnesium Oxide [Mag Ox] 400 mg PO DAILY 12/01/21 Multivitamin [Theragran] 1 each PO DAILY 12/01/21
[2022-01-09] MEDS: QUEtiapine 25 MG TABLET PO SCH (21:45)
[2022-01-09] MEDS: OLANZapine ODT 5 MG TABLET TL SCH (21:45)
[2022-01-10] MEDS: THIAMINE 100 MG TABLET PO SCH (08:12)
[2022-01-10] MEDS: haloperidoL 1 MG TABLET PO SCH (08:12)
[2022-01-10] MEDS: MULTIVITAMIN TABLET PO SCH (08:12)
[2022-01-10] MEDS: NICOTINE 7 MG PATCH TOP SCH (08:13)
[2022-01-10] MEDS: polyethylene glycoL 3350 17 GM PACKET PO SCH (08:13)
[2022-01-10] MEDS: MAGNESIUM OXIDE 400 MG TABLET PO SCH (08:13)
--- NOTE | 2022-01-10 16:35 | PROVIDER PROGRESS NOTE ---
Progress Note January 10, 2022 4:30 PM I last saw the patient December 15. He was pleasant, cooperative, walking the hallways in street close. Had quite a bit of word salad and sometimes his sentences were not making much sense. He continues to progress. His speech patterns have improved and he now has almost normal conversations. But he still exceedingly forgetful. He knows he is in the hospital, and he is expressing his unhappiness is still being here. Does not understand what is happening and keeps on asking for an explanation. switchboard wire worker helper has been in to see him and explained why he is being detained and how were working through guardianship he just does not remember from day-to-day. Medications: Colace, Haldol 2 mg daily, Motrin as needed, magnesium oxide 400 mg daily, multivitamin daily, nicotine patch daily since January 03, Zyprexa 5 mg at night, MiraLAX as needed, Seroquel 50 mg at night, thiamine 100 mg daily. When he was admitted his home medications were magnesium oxide, multivitamin, and thiamine. Exam: Temperature 36.5, heart rate 94, blood pressure 120/79, respirations 16, 99% on room air. This 5 foot 6 which is tall male who is 74.3 kg, well-nourished well-developed Alert, oriented person, usually place, hardly ever to time. Neck is supple. No JVD Lungs are clear to auscultation and percussion without increased respiratory effort with speaking or walking CLR: Regular rate and rhythm. No murmurs rubs or gallops Abdomen is soft, nontender Extremities warm, no clubbing, no edema. Neurologically: Walks in the hallway with occasional use of the side rail for balance. Most the time he walks with a slight shuffling gait and no tachypnea, is comfortable. Emotionally can get agitated but can be prompted. No facial asymmetry. No focal loss of strength. His main deficits appear to be memory, occasional word finding, and disorientation, and mild ataxia. Assessment/plan: 1. Probable Warnicke Korsakoff syndrome. He has chronic alcohol abuse, chronically elevated liver enzymes. When he presented to the hospital he was encephalopathic. As he was hydrated, and fed, he became increasingly alert and agitated with psychosis. Today is day #38 of stay. On admission he was treated with banana bag, and thiamine was included. Those supplements have been given on a daily basis since he has been here. Cognitive evaluation had a score of 16 out of 30. Telepsychiatrist evaluation was done and he feels that the patient cannot be discharged to independent living due to his dementia and Warnicke Korsakoff. He recommended the antipsychotic medication that the patient is currently on. As such the patient is awaiting guardianship. His daughter is involved in this process but she is not his POA and has declined to do so. Social work is waiting for his case to go through the court systems. When he finally has a guardian we can then start making arrangements for patient to be discharged to an appropriate facility. 2. COVID-19 He had a positive status on admission. But he is never had respiratory distress or pneumonia with this. Off isolation precautions 3 homeless single person. Again we are awaiting guardianship and placement 4. Alcohol abuse. When he was admitted with his stay, he did go through alcohol withdrawal but that has resolved. Librium has been tapered off. 5. Alcoholic liver disease. Most likely the cause of elevated liver enzymes that are chronically elevated. INR is also slightly elevated at 1.[address] from December 06 shows a liver with diffusely decreased attenuation without focal mass lesions. Portal vein is enlarged without thrombus. Spleen unremarkable. There is no free fluid or ascites.
[2022-01-10] MEDS: QUEtiapine 25 MG TABLET PO SCH (20:24)
[2022-01-10] MEDS: OLANZapine ODT 5 MG TABLET TL SCH (20:24)
[2022-01-11] MEDS: THIAMINE 100 MG TABLET PO SCH (08:19)
[2022-01-11] MEDS: haloperidoL 1 MG TABLET PO SCH (08:19)
[2022-01-11] MEDS: MULTIVITAMIN TABLET PO SCH (08:19)
[2022-01-11] MEDS: MAGNESIUM OXIDE 400 MG TABLET PO SCH (08:19)
[2022-01-11] MEDS: NICOTINE 7 MG PATCH TOP SCH (08:20)
[2022-01-11] MEDS: polyethylene glycoL 3350 17 GM PACKET PO SCH (08:20)
--- NOTE | 2022-01-11 16:38 | PROVIDER PROGRESS NOTE ---
Progress Note January 11, 2022 4:35 PM No new events. We are just awaiting placement. He is now day 39 of stay. Repeat cognitive last week shows him to be with moderate cognitive deficit still present even though his speech and gait have improved tremendously since admission. There are no change in medications. Temperature 36.6. Pulse 92. Blood pressure 129/69. Respirations 1799% on room air. Tall alert white male, cooperative, wandering the hallways with one-to-one assist. Lungs are clear. Regular rate and rhythm. Abdomen is soft and nontender. 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 Leaving him with severe cognitive deficits that have slowly improved to moderate deficits but still present. He cannot return to independent living. Daughter does not want to be POA to make decisions for him. As such we are in the process of getting a court appointed guardian to then help with start making plans and decisions for this incapacitated col[place] gentleman.
[2022-01-11] MEDS: QUEtiapine 25 MG TABLET PO SCH (20:39)
[2022-01-11] MEDS: OLANZapine ODT 5 MG TABLET TL SCH (20:40)
[2022-01-12] MEDS: MULTIVITAMIN TABLET PO SCH (08:39)
[2022-01-12] MEDS: MAGNESIUM OXIDE 400 MG TABLET PO SCH (08:39)
[2022-01-12] MEDS: NICOTINE 7 MG PATCH TOP SCH (08:39)
[2022-01-12] MEDS: haloperidoL 1 MG TABLET PO SCH (08:39)
[2022-01-12] MEDS: THIAMINE 100 MG TABLET PO SCH (08:39)
[2022-01-12] MEDS: polyethylene glycoL 3350 17 GM PACKET PO SCH (08:42)
--- NOTE | 2022-01-12 12:02 | PROVIDER PROGRESS NOTE ---
Progress Note January 12, 2022 Noon Continues to wander the hallways. One-to-one supervision since his elopement. Eating his meals. Cooperative. Still large memory gaps for himself but his speech patterns and sentence structure has improved tremendously since admission. Temperature is 36.4. Heart rate 86. Blood pressure 117/78. Respirations 20. 96% on room air. Alert, oriented slender male. 5 foot 6 inches tall weighs 74.3 kg. Neck is supple, no JVD Lungs are clear to auscultation and percussion Regular rate and rhythm Abdomen soft, nontender, nondistended. Normal bowel sounds Extremities are warm without edema Neurologically large gaps in his memory, speech is now fluid and sequential. No ataxia. No focal neurological deficits. No labs have been done since December 12. Assessment/plan Unfortunate white male with chronic alcohol abuse and probable Warnicke's encephalopathy resulting in inability to take care of himself. He was much, much, much more disabled on admission 40 days ago. He is responded very nicely to nutrition, vitamin supplementation, and behavior was initially quite aggressive and threatening at times. In the last 3 weeks he is calm, cooperative. His only problem was that of the elopement when he decided he wanted a burrito and he left [facility] and went to go get one at the gas station down the street. Since then he is on one-to-one supervision. Cooperative. Eating all of his meals. Asking when he can go home. We are waiting court appointed guardianship to then move forward with permanent placement. This is nonbillable rounding
[2022-01-12] MEDS: OLANZapine ODT 5 MG TABLET TL SCH (20:13)
[2022-01-12] MEDS: QUEtiapine 25 MG TABLET PO SCH (20:13)
[2022-01-13] MEDS: haloperidoL 1 MG TABLET PO SCH (07:42)
[2022-01-13] MEDS: NICOTINE 7 MG PATCH TOP SCH (07:42)
[2022-01-13] MEDS: MAGNESIUM OXIDE 400 MG TABLET PO SCH (07:42)
[2022-01-13] MEDS: MULTIVITAMIN TABLET PO SCH (07:42)
[2022-01-13] MEDS: THIAMINE 100 MG TABLET PO SCH (07:43)
[2022-01-13] MEDS: polyethylene glycoL 3350 17 GM PACKET PO SCH (07:43)
--- NOTE | 2022-01-13 11:43 | PROVIDER PROGRESS NOTE ---
Assessment/Plan - Problem List (1) Metabolic encephalopathy Assessment/Plan: 01/13 pt is stable, ate his breakfast. he report to nurse it was his mistake to walk out of hospital and did not tell anybody at last time. because of staff issue, nurse cabrera d/c 1:1. nurse has plan for every 30 min to check pt and documented, hospital's door is closely, and front desk representative help watch pt as well. Continue consult with social work for disposition planning, Patient is pending for guardianship 01/09 pt is happy and eating his breakfast, pt has no complaints. pt is stable and pending for replacement. 01/08 pt smile and happy, eating his breakfast. pt is stable, pending for placement. 01/07 pt walk, ate 100% meal. he is stable, cooperative. pt is pending for placement. 01/06 today pt is cooperative with stall and stable, pt ate whole his breakfast. pt ask lots of coffee to drink but which cause his agitation in the past. we will try use decaf for pt. pt walked out of hospital on yesterday, now pt has 1:1 safety observation. (2) Wernicke-Korsakoff syndrome (alcoholic) Assessment/Plan: He has hx of chronic alcoholic abuse and chronic elevated liver enzyme. pt present a chronic finger tremor and cognitive impairment. pt had cognitive evaluation by OT, his score was 16/30. pt also had tele psychiatrist evaluation and pt has Haldol and Zyprexa. We are continuing PO Thaimine daily for this pt. He will again be on 1:1 monitoring. (3) COVID-19 Impression: Pt is asymptomatic without respiratory distress. pt walk at hallway. He is off of precautions. (4) Homeless single person Impression: pt's this situation further made his disposition difficult and he is required to have guardianship for his disposition. bag shop worker was consulted and it might be a prolonged process and need extended period of time in hospitalization (5) Alcohol abuse Impression: He has hx of chronic alcoholic abuse and often intoxicated when in the ED in the past. He initially went through alcohol withdrawal many weeks ago, but this has now resolved. His librium was tapered to off. (6)elevated liver enzyme pt has hx of chronic alcoholic abuse which likely contribute to his elevated liver enzyme. pt ate all his meal, walk at hallway. pt already did not drink alcohol in this whole hospital stay now. hopefully pt continue stopping d rinking of alcohol, followup with PCP and GI as out-pt after d/c to monitor. - Current Meds Current Meds: Current Medications Generic Name Dose Route Start Last Admin Trade Name Debby PRN Reason Stop Dose Admin Docusate Sodium 250 - 500 mg 12/22/21 07:23 01/10/22 08:12 Docusate Sodium 250 Mg Capsule PO 250 mg DAILY PRN Administration Constipation Haloperidol 2 mg 12/19/21 21:00 01/13/22 07:42 Haloperidol 1 Mg Tablet PO 2 mg DAILY MARY Administration Magnesium Oxide 400 mg 12/05/21 09:00 01/13/22 07:42 Magnesium Oxide 400 Mg Tablet PO 400 mg DAILY MARY Administration Multivitamins 1 tab 12/05/21 09:00 01/13/22 07:42 Multivitamin Tablet PO 1 tab DAILY MARY Administration Nicotine 1 patch 01/03/22 09:00 01/13/22 07:42 Nicotine 7 Mg Patch TOP 1 patch DAILY MARY Administration Olanzapine 5 mg 12/07/21 21:00 01/12/22 20:13 Olanzapine Odt 5 Mg Tablet TL 5 mg HS MARY Administration Polyethylene Glycol 17 gm 12/09/21 14:00 01/13/22 07:43 Polyethylene Glycol 3350 17 Gm Packet PO Not Given DAILY MARY Quetiapine Fumarate 50 mg 12/10/21 21:00 01/12/22 20:13 Quetiapine 25 Mg Tablet PO 50 mg QPM MARY Administration Senna 8.6 - 17.2 mg 12/22/21 07:23 01/10/22 08:12 Senna 8.6 Mg Tablet PO 8.6 mg DAILY PRN Administration Constipation Thiamine HCl 100 mg 12/04/21 09:00 01/13/22 07:43 Thiamine 100 Mg Tablet PO 100 mg DAILY MARY Administration - Lab Result Fish Bone Diagrams: 12/12/21 08:07 12/12/21 08:07 Subjective - Subjective Patient Reports: Resting Comfortably, No Complaints Objective Vital Signs: Vital Signs - 24 hr 01/13/22 10:21 Temperature 36.7 C Heart Rate [ 93 Brachial] Respiratory 16 Rate Blood Pressure 109/80 [Right Brachial artery] O2 Saturation 96 Oxygen O2 Source Room air I&O (Last 24 Hrs): Intake and Output Totals x24h 03/0601/12/22 01/13/22 23:59 23:59 23:59 Intake Total 1640 1120 720 Balance 1640 1120 720 General: Alert, Cooperative, No acute distress HEENT: Atraumatic Neck: Supple Lymphatic: no adenopathy Neuro: Alert, Non Focal Cardiovascular: Regular rate, Normal S1, Normal S2 Respiratory: Chest non-tender, No respiratory distress Abdomen: Normal bowel sounds, Soft Extremities: Normal pulses - Results Results: Laboratory Results WBC 3.4 x10^3/uL (4.8-10.8) L 12/12/21 08:07 RBC 4.17 10^6/uL (4.70-6.10) L 12/12/21 08:07 Hgb 13.2 g/dL (14.0-18.0) L 12/12/21 08:07 Hct 40.3 % (42.0-52.0) L 12/12/21 08:07 MCV 96.6 fL (80.0-94.0) H 12/12/21 08:07 MCH 31.7 pg (27.0-31.0) H 12/12/21 08:07 MCHC 32.8 g/dL (32.0-36.0) 12/12/21 08:07 RDW 13.7 % (12.0-15.0) 12/12/21 08:07 Plt Count 146 10^3/uL (130-450) 12/12/21 08:07 MPV 12.8 fL (7.4-11.4) H 12/12/21 08:07 Neut # (Auto) 1.5 10^3/uL (1.5-6.6) 12/12/21 08:07 Lymph # (Auto) 1.4 10^3/uL (1.5-3.5) L 12/12/21 08:07 [place] # (Auto) 0.4 10^3/uL (0.0-1.0) 12/12/21 08:07 Eos # (Auto) 0.1 10^3/uL (0.0-0.7) 12/12/21 08:07 Baso # (Auto) 0.1 10^3/uL (0.0-0.1) 12/12/21 08:07 Absolute Nucleated RBC 0.00 x10^3/uL 12/12/21 08:07 Nucleated RBC % 0.0 /100WBC 12/12/21 08:07 PT 15.1 secs (9.9-12.6) H 12/04/21 23:33 INR 1.4 (0.8-1.2) H 12/04/21 23:33 APTT 24.8 secs (24.9-33.3) L 12/03/21 18:20 Sodium 135 mmol/L (135-145) 12/12/21 08:07 Potassium 3.8 mmol/L (3.5-5.0) 12/12/21 08:07 Chloride 101 mmol/L (101-111) 12/12/21 08:07 Carbon Dioxide 24 mmol/L (21-32) 12/12/21 08:07 Anion Gap 10.0 (6-13) 12/12/21 08:07 BUN 19 mg/dL (6-20) 12/12/21 08:07 Creatinine 0.7 mg/dL (0.6-1.2) 12/12/21 08:07 Estimated GFR (MDRD) 114 (>89) 12/12/21 08:07 Glucose 121 mg/dL (70-100) H 12/12/21 08:07 Calcium 8.7 mg/dL (8.5-10.3) 12/12/21 08:07 Phosphorus 3.6 mg/dL (2.5-4.6) 12/06/21 07:04 Magnesium 2.0 mg/dL (1.7-2.8) 12/06/21 07:04 Total Bilirubin 0.5 mg/dL (0.2-1.0) 12/12/21 08:07 Direct Bilirubin < 0.1 mg/dL (0.1-0.5) L 12/09/21 07:55 AST 149 IU/L (10-42) H 12/12/21 08:07 ALT 254 IU/L (10-60) H 12/12/21 08:07 Alkaline Phosphatase 80 IU/L (42-121) 12/12/21 08:07 Ammonia 12.5 umol/L (7-35) 12/08/21 07:54 Total Protein 7.1 g/dL (6.7-8.2) 12/12/21 08:07 Albumin 3.7 g/dL (3.2-5.5) 12/12/21 08:07 Globulin 3.4 g/dL (2.1-4.2) 12/12/21 08:07 Albumin/Globulin Ratio 1.1 (1.0-2.2) 12/12/21 08:07 Lipase 28 U/L (22-51) 12/06/21 07:04 Whole Bld Vitamin B1 TNP 12/04/21 16:52 TSH 1.25 uIU/mL (0.34-5.60) 12/03/21 18:20 Urine Color YELLOW 12/03/21 18:26 Urine Clarity CLEAR (CLEAR) 12/03/21 18:26 Urine pH 6.5 PH (5.0-7.5) 12/03/21 18:26 Ur Specific [place] 1.020 (1.002-1.030) 12/03/21 18:26 Urine Protein NEGATIVE mg/dL (NEGATIVE) 12/03/21 18:26 Urine Glucose (UA) NEGATIVE mg/dL (NEGATIVE) 12/03/21 18:26 Urine Ketones NEGATIVE mg/dL (NEGATIVE) 12/03/21 18:26 Urine Occult Blood NEGATIVE (NEGATIVE) 12/03/21 18:26 Urine Nitrite NEGATIVE (NEGATIVE) 12/03/21 18:26 Urine Bilirubin NEGATIVE (NEGATIVE) 12/03/21 18:26 Urine Urobilinogen 0.2 (NORMAL) E.U./dL (NORMAL) 12/03/21 18:26 Ur Leukocyte Esterase NEGATIVE (NEGATIVE) 12/03/21 18:26 Ur Microscopic Review NOT INDICATED 12/03/21 18:26 Urine Culture Comments NOT INDICATED 12/03/21 18:26 Nasal Adenovirus (PCR) NOT DETECTED 12/20/21 19:10 Nasal B. parapertussis DNA (PCR) NOT DETECTED 12/20/21 19:10 Nasal Coronavir 229E PCR NOT DETECTED 12/20/21 19:10 Nasal Coronavir HKU1 PCR NOT DETECTED 12/20/21 19:10 Nasal Coronavir NL63 PCR NOT DETECTED 12/20/21 19:10 Nasal Coronavir OC43 PCR NOT DETECTED 12/20/21 19:10 Nasal Enterovir/Rhinovir PCR NOT DETECTED 12/20/21 19:10 Nasal Influenza B PCR NOT DETECTED 12/20/21 19:10 Nasal Influenza A PCR NOT DETECTED 12/20/21 19:10 Nasal Parainfluen 1 PCR NOT DETECTED 12/20/21 19:10 Nasal Parainfluen 2 PCR NOT DETECTED 12/20/21 19:10 Nasal Parainfluen 3 PCR NOT DETECTED 12/20/21 19:10 Nasal Parainfluen 4 PCR NOT DETECTED 12/20/21 19:10 Nasal RSV (PCR) NOT DETECTED 12/20/21 19:10 Nasal B.pertussis DNA PCR NOT DETECTED 12/20/21 19:10 Nasal C.pneumoniae (PCR) NOT DETECTED 12/20/21 19:10 Juan Daniel Human Metapneumo PCR NOT DETECTED 12/20/21 19:10 Nasal M.pneumoniae (PCR) NOT DETECTED 12/20/21 19:10 Nasal SARS-CoV-2 (PCR) DETECTED A 12/20/21 19:10 Salicylates < 6.0 mg/dL 12/03/21 18:20 Urine Opiates Screen NEGATIVE (NEGATIVE) 12/03/21 18:26 Ur Oxycodone Screen NEGATIVE (NEGATIVE) 12/03/21 18:26 Urine Methadone Screen NEGATIVE (NEGATIVE) 12/03/21 18:26 Ur Propoxyphene Screen NEGATIVE (NEGATIVE) 12/03/21 18:26 Acetaminophen < 10 ug/mL (10-30) L 12/03/21 18:20 Ur Barbiturates Screen NEGATIVE (NEGATIVE) 12/03/21 18:26 Ur Tricyclics Screen NEGATIVE (NEGATIVE) 12/03/21 18:26 Ur Phencyclidine Scrn NEGATIVE (NEGATIVE) 12/03/21 18:26 Ur Amphetamine Screen NEGATIVE (NEGATIVE) 12/03/21 18:26 U Methamphetamines Scrn NEGATIVE (NEGATIVE) 12/03/21 18:26 U Benzodiazepines Scrn POSITIVE (NEGATIVE) H 12/03/21 18:26 Urine Cocaine Screen NEGATIVE (NEGATIVE) 12/03/21 18:26 U Cannabinoids Screen NEGATIVE (NEGATIVE) 12/03/21 18:26 Ethyl Alcohol < 5.0 mg/dL 12/03/21 18:20 Sepsis Event Note (H) - Evaluation Current Stage of Sepsis: Ruled out ABX Reporting Has patient been on IV antibiotics over the past 48 hours?: No Current Medications - Current Medications Current Medications: Active Medications Docusate Sodium (Docusate Sodium 250 Mg Capsule) 250 - 500 mg PO DAILY PRN PRN Reason: Constipation Last Admin: 01/10/22 08:12 Dose: 250 mg Haloperidol (Haloperidol 1 Mg Tablet) 2 mg PO DAILY [facility] Last Admin: 01/13/22 07:42 Dose: 2 mg Ibuprofen (Ibuprofen 400 Mg Tablet) 400 mg PO Q6HR PRN PRN Reason: Pain or Fever > 38C (100.4F) Magnesium Oxide (Magnesium Oxide 400 Mg Tablet) 400 mg PO DAILY [facility] Last Admin: 01/13/22 07:42 Dose: 400 mg Multivitamins (Multivitamin Tablet) 1 tab PO DAILY [facility] Last Admin: 01/13/22 07:42 Dose: 1 tab Nicotine (Nicotine 7 Mg Patch) 1 patch TOP DAILY [facility] Last Admin: 01/13/22 07:42 Dose: 1 patch Olanzapine (Olanzapine Odt 5 Mg Tablet) 5 mg TL HS [facility] Last Admin: 01/12/22 20:13 Dose: 5 mg Polyethylene Glycol (Polyethylene Glycol 3350 17 Gm Packet) 17 gm PO DAILY [facility] Last Admin: 01/13/22 07:43 Dose: Not Given Quetiapine Fumarate (Quetiapine 25 Mg Tablet) 50 mg PO QPM [facility] Last Admin: 01/12/22 20:13 Dose: 50 mg Senna (Senna 8.6 Mg Tablet) 8.6 - 17.2 mg PO DAILY PRN PRN Reason: Constipation Last Admin: 01/10/22 08:12 Dose: 8.6 mg Thiamine HCl (Thiamine 100 Mg Tablet) 100 mg PO DAILY [facility] Last Admin: 01/13/22 07:43 Dose: 100 mg Magnesium Oxide [Mag Ox] 400 mg PO DAILY 12/01/21 Multivitamin [Theragran] 1 each PO DAILY 12/01/21
[2022-01-13] MEDS: QUEtiapine 25 MG TABLET PO SCH (21:16)
[2022-01-13] MEDS: OLANZapine ODT 5 MG TABLET TL SCH (21:16)
--- NOTE | 2022-01-14 07:35 | PROVIDER PROGRESS NOTE ---
Assessment/Plan - Problem List (1) Metabolic encephalopathy Assessment/Plan: 01/14, Patient is hemodynamically stable, he ate 100% of his meal and walk in the hallway. Patient is pending for guardianship, pending for placement. 01/13 pt is stable, ate his breakfast. he report to nurse it was his mistake to walk out of hospital and did not tell anybody at last time. because of staff issue, nurse hope d/c 1:1. nurse has plan for every 30 min to check pt and documented, hospital's door is closely, and front office spec help watch pt as well. Continue consult with social work for disposition planning, Patient is pending for guardianship 01/09 pt is happy and eating his breakfast, pt has no complaints. pt is stable and pending for replacement. 01/08 pt smile and happy, eating his breakfast. pt is stable, pending for placement. 01/07 pt walk, ate 100% meal. he is stable, cooperative. pt is pending for place ment. 01/06 today pt is cooperative with stall and stable, pt ate whole his breakfast. pt ask lots of coffee to drink but which cause his agitation in the past. we will try use decaf for pt. pt walked out of hospital on yesterday, now pt has 1:1 safety observation. (2) Wernicke-Korsakoff syndrome (alcoholic) Assessment/Plan: He has hx of chronic alcoholic abuse and chronic elevated liver enzyme. pt present a chronic finger tremor and cognitive impairment. pt had cognitive evaluation by OT, his score was 16/30. pt also had tele psychiatrist evaluation and pt has Haldol and Zyprexa. We are continuing PO Thaimine daily for this pt. He will again be on 1:1 monitoring. (3) COVID-19 Impression: Pt is asymptomatic without respiratory distress. pt walk at hallway. He is off of precautions. (4) Homeless single person Impression: pt's this situation further made his disposition difficult and he is required to have guardianship for his disposition. cotton farmworker was consulted and it might be a prolonged process and need extended period of time in hospitalization (5) Alcohol abuse Impression: He has hx of chronic alcoholic abuse and often intoxicated when in the ED in the past. He initially went through alcohol withdrawal many weeks ago, but this has now resolved. His librium was tapered to off. (6)elevated liver enzyme pt has hx of chronic alcoholic abuse which likely contribute to his elevated liver enzyme. pt ate all his meal, walk at hallway. pt already did not drink alcohol in this whole hospital stay now. hopefully pt continue stopping drinking of alcohol, followup with PCP and GI as out-pt after d/c to monitor. - Current Meds Current Meds: Current Medications Generic Name Dose Route Start Last Admin Trade Name Debby PRN Reason Stop Dose Admin Docusate Sodium 250 - 500 mg 12/22/21 07:23 01/10/22 08:12 Docusate Sodium 250 Mg Capsule PO 250 mg DAILY PRN Administration Constipation Haloperidol 2 mg 12/19/21 21:00 01/13/22 07:42 Haloperidol 1 Mg Tablet PO 2 mg DAILY MARY Administration Magnesium Oxide 400 mg 12/05/21 09:00 01/13/22 07:42 Magnesium Oxide 400 Mg Tablet PO 400 mg DAILY MARY Administration Multivitamins 1 tab 12/05/21 09:00 01/13/22 07:42 Multivitamin Tablet PO 1 tab DAILY MARY Administration Nicotine 1 patch 01/03/22 09:00 01/13/22 07:42 Nicotine 7 Mg Patch TOP 1 patch DAILY MARY Administration Olanzapine 5 mg 12/07/21 21:00 01/13/22 21:16 Olanzapine Odt 5 Mg Tablet TL 5 mg HS MARY Administration Polyethylene Glycol 17 gm 12/09/21 14:00 01/13/22 07:43 Polyethylene Glycol 3350 17 Gm Packet PO Not Given DAILY MARY Quetiapine Fumarate 50 mg 12/10/21 21:00 01/13/22 21:16 Quetiapine 25 Mg Tablet PO 50 mg QPM MARY Administration Senna 8.6 - 17.2 mg 12/22/21 07:23 01/10/22 08:12 Senna 8.6 Mg Tablet PO 8.6 mg DAILY PRN Administration Constipation Thiamine HCl 100 mg 12/04/21 09:00 01/13/22 07:43 Thiamine 100 Mg Tablet PO 100 mg DAILY MARY Administration - Lab Result Fish Bone Diagrams: 12/12/21 08:07 12/12/21 08:07 Subjective - Subjective Patient Reports: Resting Comfortably Nursing Reports: No Complaints Objective Vital Signs: Vital Signs - 24 hr 01/13/22 01/14/22 10:21 07:22 Temperature 36.7 C 36.3 C L Heart Rate [ 93 Brachial] Heart Rate [ 100 Radial] Respiratory 16 18 Rate Blood Pressure 109/80 [Right Brachial artery] Blood Pressure 126/90 H [Right Radial artery] O2 Saturation 96 95 Oxygen O2 Source Room air I&O (Last 24 Hrs): Intake and Output Totals x24h 01/12/22 01/13/22 01/14/22 23:59 23:59 23:59 Intake Total 1120 1680 Balance 1120 1680 General: Alert, Cooperative, No acute distress HEENT: Atraumatic Neck: Supple Lymphatic: no adenopathy Neuro: Alert, Non Focal Cardiovascular: Regular rate, Normal S1, Normal S2 Respiratory: Chest non-tender, No respiratory distress Abdomen: Normal bowel sounds, Soft Extremities: Normal pulses - Results Results: Laboratory Results WBC 3.4 x10^3/uL (4.8-10.8) L 12/12/21 08:07 RBC 4.17 10^6/uL (4.70-6.10) L 12/12/21 08:07 Hgb 13.2 g/dL (14.0-18.0) L 12/12/21 08:07 Hct 40.3 % (42.0-52.0) L 12/12/21 08:07 MCV 96.6 fL (80.0-94.0) H 12/12/21 08:07 MCH 31.7 pg (27.0-31.0) H 12/12/21 08:07 MCHC 32.8 g/dL (32.0-36.0) 12/12/21 08:07 RDW 13.7 % (12.0-15.0) 12/12/21 08:07 Plt Count 146 10^3/uL (130-450) 12/12/21 08:07 MPV 12.8 fL (7.4-11.4) H 12/12/21 08:07 Neut # (Auto) 1.5 10^3/uL (1.5-6.6) 12/12/21 08:07 Lymph # (Auto) 1.4 10^3/uL (1.5-3.5) L 12/12/21 08:07 [place] # (Auto) 0.4 10^3/uL (0.0-1.0) 12/12/21 08:07 Eos # (Auto) 0.1 10^3/uL (0.0-0.7) 12/12/21 08:07 Baso # (Auto) 0.1 10^3/uL (0.0-0.1) 12/12/21 08:07 Absolute Nucleated RBC 0.00 x10^3/uL 12/12/21 08:07 Nucleated RBC % 0.0 /100WBC 12/12/21 08:07 PT 15.1 secs (9.9-12.6) H 12/04/21 23:33 INR 1.4 (0.8-1.2) H 12/04/21 23:33 APTT 24.8 secs (24.9-33.3) L 12/03/21 18:20 Sodium 135 mmol/L (135-145) 12/12/21 08:07 Potassium 3.8 mmol/L (3.5-5.0) 12/12/21 08:07 Chloride 101 mmol/L (101-111) 12/12/21 08:07 Carbon Dioxide 24 mmol/L (21-32) 12/12/21 08:07 Anion Gap 10.0 (6-13) 12/12/21 08:07 BUN 19 mg/dL (6-20) 12/12/21 08:07 Creatinine 0.7 mg/dL (0.6-1.2) 12/12/21 08:07 Estimated GFR (MDRD) 114 (>89) 12/12/21 08:07 Glucose 121 mg/dL (70-100) H 12/12/21 08:07 Calcium 8.7 mg/dL (8.5-10.3) 12/12/21 08:07 Phosphorus 3.6 mg/dL (2.5-4.6) 12/06/21 07:04 Magnesium 2.0 mg/dL (1.7-2.8) 12/06/21 07:04 Total Bilirubin 0.5 mg/dL (0.2-1.0) 12/12/21 08:07 Direct Bilirubin < 0.1 mg/dL (0.1-0.5) L 12/09/21 07:55 AST 149 IU/L (10-42) H 12/12/21 08:07 ALT 254 IU/L (10-60) H 12/12/21 08:07 Alkaline Phosphatase 80 IU/L (42-121) 12/12/21 08:07 Ammonia 12.5 umol/L (7-35) 12/08/21 07:54 Total Protein 7.1 g/dL (6.7-8.2) 12/12/21 08:07 Albumin 3.7 g/dL (3.2-5.5) 12/12/21 08:07 Globulin 3.4 g/dL (2.1-4.2) 12/12/21 08:07 Albumin/Globulin Ratio 1.1 (1.0-2.2) 12/12/21 08:07 Lipase 28 U/L (22-51) 12/06/21 07:04 Whole Bld Vitamin B1 TNP 12/04/21 16:52 TSH 1.25 uIU/mL (0.34-5.60) 12/03/21 18:20 Urine Color YELLOW 12/03/21 18:26 Urine Clarity CLEAR (CLEAR) 12/03/21 18:26 Urine pH 6.5 PH (5.0-7.5) 12/03/21 18:26 Ur Specific [place] 1.020 (1.002-1.030) 12/03/21 18:26 Urine Protein NEGATIVE mg/dL (NEGATIVE) 12/03/21 18:26 Urine Glucose (UA) NEGATIVE mg/dL (NEGATIVE) 12/03/21 18:26 Urine Ketones NEGATIVE mg/dL (NEGATIVE) 12/03/21 18:26 Urine Occult Blood NEGATIVE (NEGATIVE) 12/03/21 18:26 Urine Nitrite NEGATIVE (NEGATIVE) 12/03/21 18:26 Urine Bilirubin NEGATIVE (NEGATIVE) 12/03/21 18:26 Urine Urobilinogen 0.2 (NORMAL) E.U./dL (NORMAL) 12/03/21 18:26 Ur Leukocyte Esterase NEGATIVE (NEGATIVE) 12/03/21 18:26 Ur Microscopic Review NOT INDICATED 12/03/21 18:26 Urine Culture Comments NOT INDICATED 12/03/21 18:26 Nasal Adenovirus (PCR) NOT DETECTED 12/20/21 19:10 Nasal B. parapertussis DNA (PCR) NOT DETECTED 12/20/21 19:10 Nasal Coronavir 229E PCR NOT DETECTED 12/20/21 19:10 Nasal Coronavir HKU1 PCR NOT DETECTED 12/20/21 19:10 Nasal Coronavir NL63 PCR NOT DETECTED 12/20/21 19:10 Nasal Coronavir OC43 PCR NOT DETECTED 12/20/21 19:10 Nasal Enterovir/Rhinovir PCR NOT DETECTED 12/20/21 19:10 Nasal Influenza B PCR NOT DETECTED 12/20/21 19:10 Nasal Influenza A PCR NOT DETECTED 12/20/21 19:10 Nasal Parainfluen 1 PCR NOT DETECTED 12/20/21 19:10 Nasal Parainfluen 2 PCR NOT DETECTED 12/20/21 19:10 Nasal Parainfluen 3 PCR NOT DETECTED 12/20/21 19:10 Nasal Parainfluen 4 PCR NOT DETECTED 12/20/21 19:10 Nasal RSV (PCR) NOT DETECTED 12/20/21 19:10 Nasal B.pertussis DNA PCR NOT DETECTED 12/20/21 19:10 Nasal C.pneumoniae (PCR) NOT DETECTED 12/20/21 19:10 Juan Daniel Human Metapneumo PCR NOT DETECTED 12/20/21 19:10 Nasal M.pneumoniae (PCR) NOT DETECTED 12/20/21 19:10 Nasal SARS-CoV-2 (PCR) DETECTED A 12/20/21 19:10 Salicylates < 6.0 mg/dL 12/03/21 18:20 Urine Opiates Screen NEGATIVE (NEGATIVE) 12/03/21 18:26 Ur Oxycodone Screen NEGATIVE (NEGATIVE) 12/03/21 18:26 Urine Methadone Screen NEGATIVE (NEGATIVE) 12/03/21 18:26 Ur Propoxyphene Screen NEGATIVE (NEGATIVE) 12/03/21 18:26 Acetaminophen < 10 ug/mL (10-30) L 12/03/21 18:20 Ur Barbiturates Screen NEGATIVE (NEGATIVE) 12/03/21 18:26 Ur Tricyclics Screen NEGATIVE (NEGATIVE) 12/03/21 18:26 Ur Phencyclidine Scrn NEGATIVE (NEGATIVE) 12/03/21 18:26 Ur Amphetamine Screen NEGATIVE (NEGATIVE) 12/03/21 18:26 U Methamphetamines Scrn NEGATIVE (NEGATIVE) 12/03/21 18:26 U Benzodiazepines Scrn POSITIVE (NEGATIVE) H 12/03/21 18:26 Urine Cocaine Screen NEGATIVE (NEGATIVE) 12/03/21 18:26 U Cannabinoids Screen NEGATIVE (NEGATIVE) 12/03/21 18:26 Ethyl Alcohol < 5.0 mg/dL 12/03/21 18:20 Sepsis Event Note (H) - Evaluation Current Stage of Sepsis: Ruled out ABX Reporting Has patient been on IV antibiotics over the past 48 hours?: No Current Medications - Current Medications Current Medications: Active Medications Docusate Sodium (Docusate Sodium 250 Mg Capsule) 250 - 500 mg PO DAILY PRN PRN Reason: Constipation Last Admin: 01/10/22 08:12 Dose: 250 mg Haloperidol (Haloperidol 1 Mg Tablet) 2 mg PO DAILY [facility] Last Admin: 01/14/22 08:28 Dose: 2 mg Ibuprofen (Ibuprofen 400 Mg Tablet) 400 mg PO Q6HR PRN PRN Reason: Pain or Fever > 38C (100.4F) Magnesium Oxide (Magnesium Oxide 400 Mg Tablet) 400 mg PO DAILY [facility] Last Admin: 01/14/22 08:28 Dose: 400 mg Multivitamins (Multivitamin Tablet) 1 tab PO DAILY [facility] Last Admin: 01/14/22 08:28 Dose: 1 tab Nicotine (Nicotine 7 Mg Patch) 1 patch TOP DAILY [facility] Last Admin: 01/14/22 08:28 Dose: 1 patch Olanzapine (Olanzapine Odt 5 Mg Tablet) 5 mg TL HS [facility] Last Admin: 01/13/22 21:16 Dose: 5 mg Polyethylene Glycol (Polyethylene Glycol 3350 17 Gm Packet) 17 gm PO DAILY [facility] Last Admin: 01/14/22 08:28 Dose: Not Given Quetiapine Fumarate (Quetiapine 25 Mg Tablet) 50 mg PO QPM [facility] Last Admin: 01/13/22 21:16 Dose: 50 mg Senna (Senna 8.6 Mg Tablet) 8.6 - 17.2 mg PO DAILY PRN PRN Reason: Constipation Last Admin: 01/10/22 08:12 Dose: 8.6 mg Thiamine HCl (Thiamine 100 Mg Tablet) 100 mg PO DAILY [facility] Last Admin: 01/14/22 08:28 Dose: 100 mg Magnesium Oxide [Mag Ox] 400 mg PO DAILY 12/01/21 Multivitamin [Theragran] 1 each PO DAILY 12/01/21
[2022-01-14] MEDS: MAGNESIUM OXIDE 400 MG TABLET PO SCH (08:28)
[2022-01-14] MEDS: haloperidoL 1 MG TABLET PO SCH (08:28)
[2022-01-14] MEDS: polyethylene glycoL 3350 17 GM PACKET PO SCH (08:28)
[2022-01-14] MEDS: NICOTINE 7 MG PATCH TOP SCH (08:28)
[2022-01-14] MEDS: THIAMINE 100 MG TABLET PO SCH (08:28)
[2022-01-14] MEDS: MULTIVITAMIN TABLET PO SCH (08:28)
[2022-01-14] MEDS: OLANZapine ODT 5 MG TABLET TL SCH (21:10)
[2022-01-14] MEDS: QUEtiapine 25 MG TABLET PO SCH (21:10)
[2022-01-15] MEDS: MAGNESIUM OXIDE 400 MG TABLET PO SCH (08:44)
[2022-01-15] MEDS: MULTIVITAMIN TABLET PO SCH (08:44)
[2022-01-15] MEDS: haloperidoL 1 MG TABLET PO SCH (08:44)
[2022-01-15] MEDS: THIAMINE 100 MG TABLET PO SCH (08:44)
[2022-01-15] MEDS: polyethylene glycoL 3350 17 GM PACKET PO SCH (08:45)
[2022-01-15] MEDS: NICOTINE 7 MG PATCH TOP SCH (08:45)
--- NOTE | 2022-01-15 13:21 | PROVIDER PROGRESS NOTE ---
Assessment/Plan - Problem List (1) Metabolic encephalopathy Assessment/Plan: 01/15, pt walks and ate his all meal, pt is stable, is pending for placement. 01/14, Patient is hemodynamically stable, he ate 100% of his meal and walk in the hallway. Patient is pending for guardianship, pending for placement. 01/13 pt is stable, ate his breakfast. he report to nurse it was his mistake to walk out of hospital and did not tell anybody at last time. because of staff issue, nurse rick d/c 1:1. nurse has plan for every 30 min to check pt and documented, hospital's door is closely, and front clerk help watch pt as well. Continue consult with social work for disposition planning, Patient is pending for guardianship 01/09 pt is happy and eating his breakfast, pt has no complaints. pt is stable and pending for replacement. 01/08 pt smile and happy, eating his breakfast. pt is stable, pending for placement. 01/07 pt walk, ate 100% meal. he is stable, cooperative. pt is pending for placement. 01/06 today pt is cooperative with stall and stable, pt ate whole his breakfast. pt ask lots of coffee to drink but which cause his agitation in the past. we will try use decaf for pt. pt walked out of hospital on yesterday, now pt has 1:1 safety observation. (2) Wernicke-Korsakoff syndrome (alcoholic) Assessment/Plan: He has hx of chronic alcoholic abuse and chronic elevated liver enzyme. pt present a chronic finger tremor and cognitive impairment. pt had cognitive e valuation by OT, his score was 16/30. pt also had tele psychiatrist evaluation and pt has Haldol and Zyprexa. We are continuing PO Thaimine daily for this pt. He will again be on 1:1 monitoring. (3) COVID-19 Impression: Pt is asymptomatic without respiratory distress. pt walk at hallway. He is off of precautions. (4) Homeless single person Impression: pt's this situation further made his disposition difficult and he is required to have guardianship for his disposition. aquacultural worker supervisor was consulted and it might be a prolonged process and need extended period of time in hospitalization (5) Alcohol abuse Impression: He has hx of chronic alcoholic abuse and often intoxicated when in the ED in the past. He initially went through alcohol withdrawal many weeks ago, but this has now resolved. His librium was tapered to off. (6)elevated liver enzyme pt has hx of chronic alcoholic abuse which likely contribute to his elevated liver enzyme. pt ate all his meal, walk at hallway. pt already did not drink alcohol in this whole hospital stay now. hopefully pt continue stopping drinking of alcohol, followup with PCP and GI as out-pt after d/c to monitor. - Current Meds Current Meds: Current Medications Generic Name Dose Route Start Last Admin Trade Name Debby PRN Reason Stop Dose Admin Docusate Sodium 250 - 500 mg 12/22/21 07:23 01/10/22 08:12 Docusate Sodium 250 Mg Capsule PO 250 mg DAILY PRN Administration Constipation Haloperidol 2 mg 12/19/21 21:00 01/15/22 08:44 Haloperidol 1 Mg Tablet PO 2 mg DAILY MARY Administration Magnesium Oxide 400 mg 12/05/21 09:00 01/15/22 08:44 Magnesium Oxide 400 Mg Tablet PO 400 mg DAILY MARY Administration Multivitamins 1 tab 12/05/21 09:00 01/15/22 08:44 Multivitamin Tablet PO 1 tab DAILY MARY Administration Nicotine 1 patch 01/03/22 09:00 01/15/22 08:45 Nicotine 7 Mg Patch TOP 1 patch DAILY MARY Administration Olanzapine 5 mg 12/07/21 21:00 01/14/22 21:10 Olanzapine Odt 5 Mg Tablet TL 5 mg HS MARY Administration Polyethylene Glycol 17 gm 12/09/21 14:00 01/15/22 08:45 Polyethylene Glycol 3350 17 Gm Packet PO Not Given DAILY MARY Quetiapine Fumarate 50 mg 12/10/21 21:00 01/14/22 21:10 Quetiapine 25 Mg Tablet PO 50 mg QPM MARY Administration Senna 8.6 - 17.2 mg 12/22/21 07:23 01/10/22 08:12 Senna 8.6 Mg Tablet PO 8.6 mg DAILY PRN Administration Constipation Thiamine HCl 100 mg 12/04/21 09:00 01/15/22 08:44 Thiamine 100 Mg Tablet PO 100 mg DAILY MARY Administration - Lab Result Fish Bone Diagrams: 12/12/21 08:07 12/12/21 08:07 Subjective - Subjective Patient Reports: Resting Comfortably, No Complaints Objective Vital Signs: Vital Signs - 24 hr 01/15/22 06:30 Temperature 36.6 C Heart Rate [ 89 Brachial] Respiratory 16 Rate Blood Pressure 127/80 [Right Brachial artery] O2 Saturation 96 Oxygen O2 Source Room air I&O (Last 24 Hrs): Intake and Output Totals x24h 01/13/22 01/14/22 01/15/22 23:59 23:59 23:59 Intake Total 1680 1500 960 Balance 1680 1500 960 General: Alert, Cooperative, No acute distress HEENT: Atraumatic Neck: Supple Lymphatic: no adenopathy Neuro: Alert, Non Focal Cardiovascular: Regular rate, Normal S1, Normal S2 Respiratory: Chest non-tender, No respiratory distress Abdomen: Normal bowel sounds, Soft Extremities: Normal pulses - Results Results: Laboratory Results WBC 3.4 x10^3/uL (4.8-10.8) L 12/12/21 08:07 RBC 4.17 10^6/uL (4.70-6.10) L 12/12/21 08:07 Hgb 13.2 g/dL (14.0-18.0) L 12/12/21 08:07 Hct 40.3 % (42.0-52.0) L 12/12/21 08:07 MCV 96.6 fL (80.0-94.0) H 12/12/21 08:07 MCH 31.7 pg (27.0-31.0) H 12/12/21 08:07 MCHC 32.8 g/dL (32.0-36.0) 12/12/21 08:07 RDW 13.7 % (12.0-15.0) 12/12/21 08:07 Plt Count 146 10^3/uL (130-450) 12/12/21 08:07 MPV 12.8 fL (7.4-11.4) H 12/12/21 08:07 Neut # (Auto) 1.5 10^3/uL (1.5-6.6) 12/12/21 08:07 Lymph # (Auto) 1.4 10^3/uL (1.5-3.5) L 12/12/21 08:07 [place] # (Auto) 0.4 10^3/uL (0.0-1.0) 12/12/21 08:07 Eos # (Auto) 0.1 10^3/uL (0.0-0.7) 12/12/21 08:07 Baso # (Auto) 0.1 10^3/uL (0.0-0.1) 12/12/21 08:07 Absolute Nucleated RBC 0.00 x10^3/uL 12/12/21 08:07 Nucleated RBC % 0.0 /100WBC 12/12/21 08:07 PT 15.1 secs (9.9-12.6) H 12/04/21 23:33 INR 1.4 (0.8-1.2) H 12/04/21 23:33 APTT 24.8 secs (24.9-33.3) L 12/03/21 18:20 Sodium 135 mmol/L (135-145) 12/12/21 08:07 Potassium 3.8 mmol/L (3.5-5.0) 12/12/21 08:07 Chloride 101 mmol/L (101-111) 12/12/21 08:07 Carbon Dioxide 24 mmol/L (21-32) 12/12/21 08:07 Anion Gap 10.0 (6-13) 12/12/21 08:07 BUN 19 mg/dL (6-20) 12/12/21 08:07 Creatinine 0.7 mg/dL (0.6-1.2) 12/12/21 08:07 Estimated GFR (MDRD) 114 (>89) 12/12/21 08:07 Glucose 121 mg/dL (70-100) H 12/12/21 08:07 Calcium 8.7 mg/dL (8.5-10.3) 12/12/21 08:07 Phosphorus 3.6 mg/dL (2.5-4.6) 12/06/21 07:04 Magnesium 2.0 mg/dL (1.7-2.8) 12/06/21 07:04 Total Bilirubin 0.5 mg/dL (0.2-1.0) 12/12/21 08:07 Direct Bilirubin < 0.1 mg/dL (0.1-0.5) L 12/09/21 07:55 AST 149 IU/L (10-42) H 12/12/21 08:07 ALT 254 IU/L (10-60) H 12/12/21 08:07 Alkaline Phosphatase 80 IU/L (42-121) 12/12/21 08:07 Ammonia 12.5 umol/L (7-35) 12/08/21 07:54 Total Protein 7.1 g/dL (6.7-8.2) 12/12/21 08:07 Albumin 3.7 g/dL (3.2-5.5) 12/12/21 08:07 Globulin 3.4 g/dL (2.1-4.2) 12/12/21 08:07 Albumin/Globulin Ratio 1.1 (1.0-2.2) 12/12/21 08:07 Lipase 28 U/L (22-51) 12/06/21 07:04 Whole Bld Vitamin B1 TNP 12/04/21 16:52 TSH 1.25 uIU/mL (0.34-5.60) 12/03/21 18:20 Urine Color YELLOW 12/03/21 18:26 Urine Clarity CLEAR (CLEAR) 12/03/21 18:26 Urine pH 6.5 PH (5.0-7.5) 12/03/21 18:26 Ur Specific [place] 1.020 (1.002-1.030) 12/03/21 18:26 Urine Protein NEGATIVE mg/dL (NEGATIVE) 12/03/21 18:26 Urine Glucose (UA) NEGATIVE mg/dL (NEGATIVE) 12/03/21 18:26 Urine Ketones NEGATIVE mg/dL (NEGATIVE) 12/03/21 18:26 Urine Occult Blood NEGATIVE (NEGATIVE) 12/03/21 18:26 Urine Nitrite NEGATIVE (NEGATIVE) 12/03/21 18:26 Urine Bilirubin NEGATIVE (NEGATIVE) 12/03/21 18:26 Urine Urobilinogen 0.2 (NORMAL) E.U./dL (NORMAL) 12/03/21 18:26 Ur Leukocyte Esterase NEGATIVE (NEGATIVE) 12/03/21 18:26 Ur Microscopic Review NOT INDICATED 12/03/21 18:26 Urine Culture Comments NOT INDICATED 12/03/21 18:26 Nasal Adenovirus (PCR) NOT DETECTED 12/20/21 19:10 Nasal B. parapertussis DNA (PCR) NOT DETECTED 12/20/21 19:10 Nasal Coronavir 229E PCR NOT DETECTED 12/20/21 19:10 Nasal Coronavir HKU1 PCR NOT DETECTED 12/20/21 19:10 Nasal Coronavir NL63 PCR NOT DETECTED 12/20/21 19:10 Nasal Coronavir OC43 PCR NOT DETECTED 12/20/21 19:10 Nasal Enterovir/Rhinovir PCR NOT DETECTED 12/20/21 19:10 Nasal Influenza B PCR NOT DETECTED 12/20/21 19:10 Nasal Influenza A PCR NOT DETECTED 12/20/21 19:10 Nasal Parainfluen 1 PCR NOT DETECTED 12/20/21 19:10 Nasal Parainfluen 2 PCR NOT DETECTED 12/20/21 19:10 Nasal Parainfluen 3 PCR NOT DETECTED 12/20/21 19:10 Nasal Parainfluen 4 PCR NOT DETECTED 12/20/21 19:10 Nasal RSV (PCR) NOT DETECTED 12/20/21 19:10 Nasal B.pertussis DNA PCR NOT DETECTED 12/20/21 19:10 Nasal C.pneumoniae (PCR) NOT DETECTED 12/20/21 19:10 Juan Daniel Human Metapneumo PCR NOT DETECTED 12/20/21 19:10 Nasal M.pneumoniae (PCR) NOT DETECTED 12/20/21 19:10 Nasal SARS-CoV-2 (PCR) DETECTED A 12/20/21 19:10 Salicylates < 6.0 mg/dL 12/03/21 18:20 Urine Opiates Screen NEGATIVE (NEGATIVE) 12/03/21 18:26 Ur Oxycodone Screen NEGATIVE (NEGATIVE) 12/03/21 18:26 Urine Methadone Screen NEGATIVE (NEGATIVE) 12/03/21 18:26 Ur Propoxyphene Screen NEGATIVE (NEGATIVE) 12/03/21 18:26 Acetaminophen < 10 ug/mL (10-30) L 12/03/21 18:20 Ur Barbiturates Screen NEGATIVE (NEGATIVE) 12/03/21 18:26 Ur Tricyclics Screen NEGATIVE (NEGATIVE) 12/03/21 18:26 Ur Phencyclidine Scrn NEGATIVE (NEGATIVE) 12/03/21 18:26 Ur Amphetamine Screen NEGATIVE (NEGATIVE) 12/03/21 18:26 U Methamphetamines Scrn NEGATIVE (NEGATIVE) 12/03/21 18:26 U Benzodiazepines Scrn POSITIVE (NEGATIVE) H 12/03/21 18:26 Urine Cocaine Screen NEGATIVE (NEGATIVE) 12/03/21 18:26 U Cannabinoids Screen NEGATIVE (NEGATIVE) 12/03/21 18:26 Ethyl Alcohol < 5.0 mg/dL 12/03/21 18:20 Sepsis Event Note (H) - Evaluation Current Stage of Sepsis: Ruled out ABX Reporting Has patient been on IV antibiotics over the past 48 hours?: No Current Medications - Current Medications Current Medications: Active Medications Docusate Sodium (Docusate Sodium 250 Mg Capsule) 250 - 500 mg PO DAILY PRN PRN Reason: Constipation Last Admin: 01/10/22 08:12 Dose: 250 mg Haloperidol (Haloperidol 1 Mg Tablet) 2 mg PO DAILY [facility] Last Admin: 01/15/22 08:44 Dose: 2 mg Ibuprofen (Ibuprofen 400 Mg Tablet) 400 mg PO Q6HR PRN PRN Reason: Pain or Fever > 38C (100.4F) Magnesium Oxide (Magnesium Oxide 400 Mg Tablet) 400 mg PO DAILY [facility] Last Admin: 01/15/22 08:44 Dose: 400 mg Multivitamins (Multivitamin Tablet) 1 tab PO DAILY [facility] Last Admin: 01/15/22 08:44 Dose: 1 tab Nicotine (Nicotine 7 Mg Patch) 1 patch TOP DAILY [facility] Last Admin: 01/15/22 08:45 Dose: 1 patch Olanzapine (Olanzapine Odt 5 Mg Tablet) 5 mg TL HS [facility] Last Admin: 01/14/22 21:10 Dose: 5 mg Polyethylene Glycol (Polyethylene Glycol 3350 17 Gm Packet) 17 gm PO DAILY [facility] Last Admin: 01/15/22 08:45 Dose: Not Given Quetiapine Fumarate (Quetiapine 25 Mg Tablet) 50 mg PO QPM [facility] Last Admin: 01/14/22 21:10 Dose: 50 mg Senna (Senna 8.6 Mg Tablet) 8.6 - 17.2 mg PO DAILY PRN PRN Reason: Constipation Last Admin: 01/10/22 08:12 Dose: 8.6 mg Thiamine HCl (Thiamine 100 Mg Tablet) 100 mg PO DAILY [facility] Last Admin: 01/15/22 08:44 Dose: 100 mg Magnesium Oxide [Mag Ox] 400 mg PO DAILY 12/01/21 Multivitamin [Theragran] 1 each PO DAILY 12/01/21
[2022-01-15] MEDS: OLANZapine ODT 5 MG TABLET TL SCH (21:08)
[2022-01-15] MEDS: QUEtiapine 25 MG TABLET PO SCH (21:08)
--- NOTE | 2022-01-16 08:00 | PROVIDER PROGRESS NOTE ---
Assessment/Plan - Problem List (1) Metabolic encephalopathy Assessment/Plan: 01/16 Patient is hemodynamically stable, ate whole of his meal, pending for placement. 01/15, pt walks and ate his all meal, pt is stable, is pending for placement. 01/14, Patient is hemodynamically stable, he ate 100% of his meal and walk in the hallway. Patient is pending for guardianship, pending for placement. 01/13 pt is stable, ate his breakfast. he report to nurse it was his mistake to walk out of hospital and did not tell anybody at last time. because of staff issue, nurse hope d/c 1:1. nurse has plan for every 30 min to check pt and documented, hospital's door is closely, and assignment desk assistant help watch pt as well. Continue consult with social work for disposition planning, Patient is pending for guardianship 01/09 pt is happy and eating his breakfast, pt has no complaints. pt is stable and pending for replacement. 01/08 pt smile and happy, eating his breakfast. pt is stable, pending for placement. 01/07 pt walk, ate 100% meal. he is stable, cooperative. pt is pending for placement. 01/06 today pt is cooperative with stall and stable, pt ate whole his breakfast. pt ask lots of coffee to drink but which cause his agitation in the past. we will try use decaf for pt. pt walked out of hospital on yesterday, now pt has 1:1 safety observation. (2) Wernicke-Korsakoff syndrome (alcoholic) Assessment/Plan: He has hx of chronic alcoholic abuse and chronic elevated liver enzyme. pt present a chronic finger tremor and cognitive impairment. pt had cognitive evaluation by OT, his score was 16/30. pt also had tele psychiatrist evaluation and pt has Haldol and Zyprexa. We are continuing PO Thaimine daily for this pt. He will again be on 1:1 monitoring. (3) COVID-19 Impression: Pt is asymptomatic without respiratory distress. pt walk at hallway. He is off of precautions. (4) Homeless single person Impression: pt's this situation further made his disposition difficult and he is required to have guardianship for his disposition. clothing trades workers was consulted and it might be a prolonged process and need extended period of time in hospitalization (5) Alcohol abuse Impression: He has hx of chronic alcoholic abuse and often intoxicated when in the ED in the past. He initially went through alcohol withdrawal many weeks ago, but this has now resolved. His librium was tapered to off. (6)elevated liver enzyme pt has hx of chronic alcoholic abuse which likely contribute to his elevated liver enzyme. pt ate all his meal, walk at hallway. pt already did not drink alcohol in this whole hospital stay now. hopefully pt continue stopping drinking of alcohol, followup with PCP and GI as out-pt after d/c to monitor. - Current Meds Current Meds: Current Medications Generic Name Dose Route Start Last Admin Trade Name Freq PRN Reason Stop Dose Admin Docusate Sodium 250 - 500 mg 12/22/21 07:23 01/10/22 08:12 Docusate Sodium 250 Mg Capsule PO 250 mg DAILY PRN Administration Constipation Haloperidol 2 mg 12/19/21 21:00 01/15/22 08:44 Haloperidol 1 Mg Tablet PO 2 mg DAILY MARY Administration Magnesium Oxide 400 mg 12/05/21 09:00 01/15/22 08:44 Magnesium Oxide 400 Mg Tablet PO 400 mg DAILY MARY Administration Multivitamins 1 tab 12/05/21 09:00 01/15/22 08:44 Multivitamin Tablet PO 1 tab DAILY MARY Administration Nicotine 1 patch 01/03/22 09:00 01/15/22 08:45 Nicotine 7 Mg Patch TOP 1 patch DAILY MARY Administration Olanzapine 5 mg 12/07/21 21:00 01/15/22 21:08 Olanzapine Odt 5 Mg Tablet TL 5 mg HS MARY Administration Polyethylene Glycol 17 gm 12/09/21 14:00 01/15/22 08:45 Polyethylene Glycol 3350 17 Gm Packet PO Not Given DAILY MARY Quetiapine Fumarate 50 mg 12/10/21 21:00 01/15/22 21:08 Quetiapine 25 Mg Tablet PO 50 mg QPM MARY Administration Senna 8.6 - 17.2 mg 12/22/21 07:23 01/10/22 08:12 Senna 8.6 Mg Tablet PO 8.6 mg DAILY PRN Administration Constipation Thiamine HCl 100 mg 12/04/21 09:00 01/15/22 08:44 Thiamine 100 Mg Tablet PO 100 mg DAILY MARY Administration - Lab Result Fish Bone Diagrams: 12/12/21 08:07 12/12/21 08:07 Subjective - Subjective Patient Reports: Resting Comfortably, No Complaints Objective Vital Signs: Vital Signs - 24 hr 01/16/22 07:43 Temperature 36.5 C Heart Rate [ 89 Brachial] Respiratory 18 Rate Blood Pressure 123/84 H [Right Brachial artery] O2 Saturation 96 Oxygen O2 Source Room air I&O (Last 24 Hrs): Intake and Output Totals x24h 01/14/22 01/15/22 01/16/22 23:59 23:59 23:59 Intake Total 1500 1989 Balance 1500 1989 General: Alert, Cooperative, No acute distress HEENT: Atraumatic Neck: Supple Lymphatic: no adenopathy Neuro: Alert, Non Focal Cardiovascular: Regular rate, Normal S1, Normal S2 Respiratory: Chest non-tender, No respiratory distress Abdomen: Normal bowel sounds, Soft Extremities: Normal pulses - Results Results: Laboratory Results WBC 3.4 x10^3/uL (4.8-10.8) L 12/12/21 08:07 RBC 4.17 10^6/uL (4.70-6.10) L 12/12/21 08:07 Hgb 13.2 g/dL (14.0-18.0) L 12/12/21 08:07 Hct 40.3 % (42.0-52.0) L 12/12/21 08:07 MCV 96.6 fL (80.0-94.0) H 12/12/21 08:07 MCH 31.7 pg (27.0-31.0) H 12/12/21 08:07 MCHC 32.8 g/dL (32.0-36.0) 12/12/21 08:07 RDW 13.7 % (12.0-15.0) 12/12/21 08:07 Plt Count 146 10^3/uL (130-450) 12/12/21 08:07 MPV 12.8 fL (7.4-11.4) H 12/12/21 08:07 Neut # (Auto) 1.5 10^3/uL (1.5-6.6) 12/12/21 08:07 Lymph # (Auto) 1.4 10^3/uL (1.5-3.5) L 12/12/21 08:07 [place] # (Auto) 0.4 10^3/uL (0.0-1.0) 12/12/21 08:07 Eos # (Auto) 0.1 10^3/uL (0.0-0.7) 12/12/21 08:07 Baso # (Auto) 0.1 10^3/uL (0.0-0.1) 12/12/21 08:07 Absolute Nucleated RBC 0.00 x10^3/uL 12/12/21 08:07 Nucleated RBC % 0.0 /100WBC 12/12/21 08:07 PT 15.1 secs (9.9-12.6) H 12/04/21 23:33 INR 1.4 (0.8-1.2) H 12/04/21 23:33 APTT 24.8 secs (24.9-33.3) L 12/03/21 18:20 Sodium 135 mmol/L (135-145) 12/12/21 08:07 Potassium 3.8 mmol/L (3.5-5.0) 12/12/21 08:07 Chloride 101 mmol/L (101-111) 12/12/21 08:07 Carbon Dioxide 24 mmol/L (21-32) 12/12/21 08:07 Anion Gap 10.0 (6-13) 12/12/21 08:07 BUN 19 mg/dL (6-20) 12/12/21 08:07 Creatinine 0.7 mg/dL (0.6-1.2) 12/12/21 08:07 Estimated GFR (MDRD) 114 (>89) 12/12/21 08:07 Glucose 121 mg/dL (70-100) H 12/12/21 08:07 Calcium 8.7 mg/dL (8.5-10.3) 12/12/21 08:07 Phosphorus 3.6 mg/dL (2.5-4.6) 12/06/21 07:04 Magnesium 2.0 mg/dL (1.7-2.8) 12/06/21 07:04 Total Bilirubin 0.5 mg/dL (0.2-1.0) 12/12/21 08:07 Direct Bilirubin < 0.1 mg/dL (0.1-0.5) L 12/09/21 07:55 AST 149 IU/L (10-42) H 12/12/21 08:07 ALT 254 IU/L (10-60) H 12/12/21 08:07 Alkaline Phosphatase 80 IU/L (42-121) 12/12/21 08:07 Ammonia 12.5 umol/L (7-35) 12/08/21 07:54 Total Protein 7.1 g/dL (6.7-8.2) 12/12/21 08:07 Albumin 3.7 g/dL (3.2-5.5) 12/12/21 08:07 Globulin 3.4 g/dL (2.1-4.2) 12/12/21 08:07 Albumin/Globulin Ratio 1.1 (1.0-2.2) 12/12/21 08:07 Lipase 28 U/L (22-51) 12/06/21 07:04 Whole Bld Vitamin B1 TNP 12/04/21 16:52 TSH 1.25 uIU/mL (0.34-5.60) 12/03/21 18:20 Urine Color YELLOW 12/03/21 18:26 Urine Clarity CLEAR (CLEAR) 12/03/21 18:26 Urine pH 6.5 PH (5.0-7.5) 12/03/21 18:26 Ur Specific [place] 1.020 (1.002-1.030) 12/03/21 18:26 Urine Protein NEGATIVE mg/dL (NEGATIVE) 12/03/21 18:26 Urine Glucose (UA) NEGATIVE mg/dL (NEGATIVE) 12/03/21 18:26 Urine Ketones NEGATIVE mg/dL (NEGATIVE) 12/03/21 18:26 Urine Occult Blood NEGATIVE (NEGATIVE) 12/03/21 18:26 Urine Nitrite NEGATIVE (NEGATIVE) 12/03/21 18:26 Urine Bilirubin NEGATIVE (NEGATIVE) 12/03/21 18:26 Urine Urobilinogen 0.2 (NORMAL) E.U./dL (NORMAL) 12/03/21 18:26 Ur Leukocyte Esterase NEGATIVE (NEGATIVE) 12/03/21 18:26 Ur Microscopic Review NOT INDICATED 12/03/21 18:26 Urine Culture Comments NOT INDICATED 12/03/21 18:26 Nasal Adenovirus (PCR) NOT DETECTED 12/20/21 19:10 Nasal B. parapertussis DNA (PCR) NOT DETECTED 12/20/21 19:10 Nasal Coronavir 229E PCR NOT DETECTED 12/20/21 19:10 Nasal Coronavir HKU1 PCR NOT DETECTED 12/20/21 19:10 Nasal Coronavir NL63 PCR NOT DETECTED 12/20/21 19:10 Nasal Coronavir OC43 PCR NOT DETECTED 12/20/21 19:10 Nasal Enterovir/Rhinovir PCR NOT DETECTED 12/20/21 19:10 Nasal Influenza B PCR NOT DETECTED 12/20/21 19:10 Nasal Influenza A PCR NOT DETECTED 12/20/21 19:10 Nasal Parainfluen 1 PCR NOT DETECTED 12/20/21 19:10 Nasal Parainfluen 2 PCR NOT DETECTED 12/20/21 19:10 Nasal Parainfluen 3 PCR NOT DETECTED 12/20/21 19:10 Nasal Parainfluen 4 PCR NOT DETECTED 12/20/21 19:10 Nasal RSV (PCR) NOT DETECTED 12/20/21 19:10 Nasal B.pertussis DNA PCR NOT DETECTED 12/20/21 19:10 Nasal C.pneumoniae (PCR) NOT DETECTED 12/20/21 19:10 [place] Daniel Human Metapneumo PCR NOT DETECTED 12/20/21 19:10 Nasal M.pneumoniae (PCR) NOT DETECTED 12/20/21 19:10 Nasal SARS-CoV-2 (PCR) DETECTED A 12/20/21 19:10 Salicylates < 6.0 mg/dL 12/03/21 18:20 Urine Opiates Screen NEGATIVE (NEGATIVE) 12/03/21 18:26 Ur Oxycodone Screen NEGATIVE (NEGATIVE) 12/03/21 18:26 Urine Methadone Screen NEGATIVE (NEGATIVE) 12/03/21 18:26 Ur Propoxyphene Screen NEGATIVE (NEGATIVE) 12/03/21 18:26 Acetaminophen < 10 ug/mL (10-30) L 12/03/21 18:20 Ur Barbiturates Screen NEGATIVE (NEGATIVE) 12/03/21 18:26 Ur Tricyclics Screen NEGATIVE (NEGATIVE) 12/03/21 18:26 Ur Phencyclidine Scrn NEGATIVE (NEGATIVE) 12/03/21 18:26 Ur Amphetamine Screen NEGATIVE (NEGATIVE) 12/03/21 18:26 U Methamphetamines Scrn NEGATIVE (NEGATIVE) 12/03/21 18:26 U Benzodiazepines Scrn POSITIVE (NEGATIVE) H 12/03/21 18:26 Urine Cocaine Screen NEGATIVE (NEGATIVE) 12/03/21 18:26 U Cannabinoids Screen NEGATIVE (NEGATIVE) 12/03/21 18:26 Ethyl Alcohol < 5.0 mg/dL 12/03/21 18:20 Sepsis Event Note (H) - Evaluation Current Stage of Sepsis: Ruled out ABX Reporting Has patient been on IV antibiotics over the past 48 hours?: No Current Medications - Current Medications Current Medications: Active Medications Docusate Sodium (Docusate Sodium 250 Mg Capsule) 250 - 500 mg PO DAILY PRN PRN Reason: Constipation Last Admin: 01/10/22 08:12 Dose: 250 mg Haloperidol (Haloperidol 1 Mg Tablet) 2 mg PO DAILY [facility] Last Admin: 01/15/22 08:44 Dose: 2 mg Ibuprofen (Ibuprofen 400 Mg Tablet) 400 mg PO Q6HR PRN PRN Reason: Pain or Fever > 38C (100.4F) Magnesium Oxide (Magnesium Oxide 400 Mg Tablet) 400 mg PO DAILY [facility] Last Admin: 01/15/22 08:44 Dose: 400 mg Multivitamins (Multivitamin Tablet) 1 tab PO DAILY [facility] Last Admin: 01/15/22 08:44 Dose: 1 tab Nicotine (Nicotine 7 Mg Patch) 1 patch TOP DAILY [facility] Last Admin: 01/15/22 08:45 Dose: 1 patch Olanzapine (Olanzapine Odt 5 Mg Tablet) 5 mg TL HS [facility] Last Admin: 01/15/22 21:08 Dose: 5 mg Polyethylene Glycol (Polyethylene Glycol 3350 17 Gm Packet) 17 gm PO DAILY [facility] Last Admin: 01/15/22 08:45 Dose: Not Given Quetiapine Fumarate (Quetiapine 25 Mg Tablet) 50 mg PO QPM [facility] Last Admin: 01/15/22 21:08 Dose: 50 mg Senna (Senna 8.6 Mg Tablet) 8.6 - 17.2 mg PO DAILY PRN PRN Reason: Constipation Last Admin: 01/10/22 08:12 Dose: 8.6 mg Thiamine HCl (Thiamine 100 Mg Tablet) 100 mg PO DAILY [facility] Last Admin: 01/15/22 08:44 Dose: 100 mg Magnesium Oxide [Mag Ox] 400 mg PO DAILY 12/01/21 Multivitamin [Theragran] 1 each PO DAILY 12/01/21
[2022-01-16] MEDS: MULTIVITAMIN TABLET PO SCH (08:21)
[2022-01-16] MEDS: haloperidoL 1 MG TABLET PO SCH (08:21)
[2022-01-16] MEDS: polyethylene glycoL 3350 17 GM PACKET PO SCH (08:22)
[2022-01-16] MEDS: NICOTINE 7 MG PATCH TOP SCH (08:23)
[2022-01-16] MEDS: THIAMINE 100 MG TABLET PO SCH (08:24)
[2022-01-16] MEDS: MAGNESIUM OXIDE 400 MG TABLET PO SCH (08:24)
[2022-01-16] MEDS: OLANZapine ODT 5 MG TABLET TL SCH (21:19)
[2022-01-16] MEDS: QUEtiapine 25 MG TABLET PO SCH (21:19)
--- NOTE | 2022-01-17 07:34 | PROVIDER PROGRESS NOTE ---
Assessment/Plan - Problem List (1) Metabolic encephalopathy Assessment/Plan: Patient appears to be functioning normally. No new incidents (2) Wernicke-Korsakoff syndrome (alcoholic) Assessment/Plan: Patient has history of chronic alcohol abuse. He had a formal evaluation by telepsych on December 07 06/27/2022. He cannot make decisions for himself. He needs a guardian and will also need permanent placement. Daughter is not able to to accommodate the patient at her house due to behavioral disturbances on his part and she has a little child at home. Continue vitamin B1 100 mg p.o. daily. (3) Alcohol abuse Assessment/Plan: Patient has not had any alcoholic beverage throughout this time in the hospital. (4) COVID-19 Assessment/Plan: This was diagnosed on 12/03/2021. Patient is currently asymptomatic and breathing comfortably on room air Repeat Covid test on 12/20/2021 was positive. Patient is now out of isolation (5) Homeless single person Assessment/Plan: Social work helping to facilitate placement. This has been particularly difficult due to some behavioral problems. - Current Meds Current Meds: Current Medications Generic Name Dose Route Start Last Admin Trade Name Freq PRN Reason Stop Dose Admin Docusate Sodium 250 - 500 mg 12/22/21 07:23 01/10/22 08:12 Docusate Sodium 250 Mg Capsule PO 250 mg DAILY PRN Administration Constipation Haloperidol 2 mg 12/19/21 21:00 01/16/22 08:21 Haloperidol 1 Mg Tablet PO 2 mg DAILY MARY Administration Magnesium Oxide 400 mg 12/05/21 09:00 01/16/22 08:24 Magnesium Oxide 400 Mg Tablet PO 400 mg DAILY MARY Administration Multivitamins 1 tab 12/05/21 09:00 01/16/22 08:21 Multivitamin Tablet PO 1 tab DAILY MARY Administration Nicotine 1 patch 01/03/22 09:00 01/16/22 08:23 Nicotine 7 Mg Patch TOP 1 patch DAILY MARY Administration Olanzapine 5 mg 12/07/21 21:00 01/16/22 21:19 Olanzapine Odt 5 Mg Tablet TL 5 mg HS MARY Administration Polyethylene Glycol 17 gm 12/09/21 14:00 01/16/22 08:22 Polyethylene Glycol 3350 17 Gm Packet PO 17 gm DAILY MARY Administration Quetiapine Fumarate 50 mg 12/10/21 21:00 01/16/22 21:19 Quetiapine 25 Mg Tablet PO 50 mg QPM MARY Administration Senna 8.6 - 17.2 mg 12/22/21 07:23 01/10/22 08:12 Senna 8.6 Mg Tablet PO 8.6 mg DAILY PRN Administration Constipation Thiamine HCl 100 mg 12/04/21 09:00 01/16/22 08:24 Thiamine 100 Mg Tablet PO 100 mg DAILY MARY Administration - Lab Result Fish Bone Diagrams: 12/12/21 08:07 12/12/21 08:07 Subjective - Subjective Patient Reports: Other (Patient was awake alert and oriented x3. He seemed to be in a pleasant mood. He denied any complaints.) Objective Vital Signs: Vital Signs - 24 hr 01/16/22 07:43 Temperature 36.5 C Heart Rate [ 89 Brachial] Respiratory 18 Rate Blood Pressure 123/84 H [Right Brachial artery] O2 Saturation 96 Oxygen O2 Source Room air I&O (Last 24 Hrs): Intake and Output Totals x24h 01/15/22 01/16/22 01/17/22 23:59 23:59 23:59 Intake Total 1989 Balance 1989 General: Alert, Oriented x3, No acute distress HEENT: PERRLA, EOMI Neck: Supple, No JVD Neuro: Alert, Non Focal, Oriented Times 3 Cardiovascular: Regular rate, Normal S1, Normal S2 Respiratory: Chest non-tender, No respiratory distress, Breath sounds nml Abdomen: Normal bowel sounds, Soft Extremities: No clubbing, No cyanosis, No edema Skin: No rashes, No breakdown, No significant lesion - Results Results: Laboratory Results WBC 3.4 x10^3/uL (4.8-10.8) L 12/12/21 08:07 RBC 4.17 10^6/uL (4.70-6.10) L 12/12/21 08:07 Hgb 13.2 g/dL (14.0-18.0) L 12/12/21 08:07 Hct 40.3 % (42.0-52.0) L 12/12/21 08:07 MCV 96.6 fL (80.0-94.0) H 12/12/21 08:07 MCH 31.7 pg (27.0-31.0) H 12/12/21 08:07 MCHC 32.8 g/dL (32.0-36.0) 12/12/21 08:07 RDW 13.7 % (12.0-15.0) 12/12/21 08:07 Plt Count 146 10^3/uL (130-450) 12/12/21 08:07 MPV 12.8 fL (7.4-11.4) H 12/12/21 08:07 Neut # (Auto) 1.5 10^3/uL (1.5-6.6) 12/12/21 08:07 Lymph # (Auto) 1.4 10^3/uL (1.5-3.5) L 12/12/21 08:07 [place] # (Auto) 0.4 10^3/uL (0.0-1.0) 12/12/21 08:07 Eos # (Auto) 0.1 10^3/uL (0.0-0.7) 12/12/21 08:07 Baso # (Auto) 0.1 10^3/uL (0.0-0.1) 12/12/21 08:07 Absolute Nucleated RBC 0.00 x10^3/uL 12/12/21 08:07 Nucleated RBC % 0.0 /100WBC 12/12/21 08:07 PT 15.1 secs (9.9-12.6) H 12/04/21 23:33 INR 1.4 (0.8-1.2) H 12/04/21 23:33 APTT 24.8 secs (24.9-33.3) L 12/03/21 18:20 Sodium 135 mmol/L (135-145) 12/12/21 08:07 Potassium 3.8 mmol/L (3.5-5.0) 12/12/21 08:07 Chloride 101 mmol/L (101-111) 12/12/21 08:07 Carbon Dioxide 24 mmol/L (21-32) 12/12/21 08:07 Anion Gap 10.0 (6-13) 12/12/21 08:07 BUN 19 mg/dL (6-20) 12/12/21 08:07 Creatinine 0.7 mg/dL (0.6-1.2) 12/12/21 08:07 Estimated GFR (MDRD) 114 (>89) 12/12/21 08:07 Glucose 121 mg/dL (70-100) H 12/12/21 08:07 Calcium 8.7 mg/dL (8.5-10.3) 12/12/21 08:07 Phosphorus 3.6 mg/dL (2.5-4.6) 12/06/21 07:04 Magnesium 2.0 mg/dL (1.7-2.8) 12/06/21 07:04 Total Bilirubin 0.5 mg/dL (0.2-1.0) 12/12/21 08:07 Direct Bilirubin < 0.1 mg/dL (0.1-0.5) L 12/09/21 07:55 AST 149 IU/L (10-42) H 12/12/21 08:07 ALT 254 IU/L (10-60) H 12/12/21 08:07 Alkaline Phosphatase 80 IU/L (42-121) 12/12/21 08:07 Ammonia 12.5 umol/L (7-35) 12/08/21 07:54 Total Protein 7.1 g/dL (6.7-8.2) 12/12/21 08:07 Albumin 3.7 g/dL (3.2-5.5) 12/12/21 08:07 Globulin 3.4 g/dL (2.1-4.2) 12/12/21 08:07 Albumin/Globulin Ratio 1.1 (1.0-2.2) 12/12/21 08:07 Lipase 28 U/L (22-51) 12/06/21 07:04 Whole Bld Vitamin B1 TNP 12/04/21 16:52 TSH 1.25 uIU/mL (0.34-5.60) 12/03/21 18:20 Urine Color YELLOW 12/03/21 18:26 Urine Clarity CLEAR (CLEAR) 12/03/21 18:26 Urine pH 6.5 PH (5.0-7.5) 12/03/21 18:26 Ur Specific [place] 1.020 (1.002-1.030) 12/03/21 18:26 Urine Protein NEGATIVE mg/dL (NEGATIVE) 12/03/21 18:26 Urine Glucose (UA) NEGATIVE mg/dL (NEGATIVE) 12/03/21 18:26 Urine Ketones NEGATIVE mg/dL (NEGATIVE) 12/03/21 18:26 Urine Occult Blood NEGATIVE (NEGATIVE) 12/03/21 18:26 Urine Nitrite NEGATIVE (NEGATIVE) 12/03/21 18: Urine Bilirubin NEGATIVE (NEGATIVE) 12/03/21 18: Urine Urobilinogen 0.2 (NORMAL) E.U./dL (NORMAL) 12/03/21 18:26 Ur Leukocyte Esterase NEGATIVE (NEGATIVE) 12/03/21 18:26 Ur Microscopic Review NOT INDICATED 12/03/21 18:26 Urine Culture Comments NOT INDICATED 12/03/21 18:26 Nasal Adenovirus (PCR) NOT DETECTED 12/20/21 19:10 Nasal B. parapertussis DNA (PCR) NOT DETECTED 12/20/21 19:10 Nasal Coronavir 229E PCR NOT DETECTED 12/20/21 19:10 Nasal Coronavir HKU1 PCR NOT DETECTED 12/20/21 19:10 Nasal Coronavir NL63 PCR NOT DETECTED 12/20/21 19:10 Nasal Coronavir OC43 PCR NOT DETECTED 12/20/21 19:10 Nasal Enterovir/Rhinovir PCR NOT DETECTED 12/20/21 19:10 Nasal Influenza B PCR NOT DETECTED 12/20/21 19:10 Nasal Influenza A PCR NOT DETECTED 12/20/21 19:10 Nasal Parainfluen 1 PCR NOT DETECTED 12/20/21 19:10 Nasal Parainfluen 2 PCR NOT DETECTED 12/20/21 19:10 Nasal Parainfluen 3 PCR NOT DETECTED 12/20/21 19:10 Nasal Parainfluen 4 PCR NOT DETECTED 12/20/21 19:10 Nasal RSV (PCR) NOT DETECTED 12/20/21 19:10 Nasal B.pertussis DNA PCR NOT DETECTED 12/20/21 19:10 Nasal C.pneumoniae (PCR) NOT DETECTED 12/20/21 19:10 [place] Daniel Human Metapneumo PCR NOT DETECTED 12/20/21 19:10 Nasal M.pneumoniae (PCR) NOT DETECTED 12/20/21 19:10 Nasal SARS-CoV-2 (PCR) DETECTED A 12/20/21 19:10 Salicylates < 6.0 mg/dL 12/03/21 18:20 Urine Opiates Screen NEGATIVE (NEGATIVE) 12/03/21 18:26 Ur Oxycodone Screen NEGATIVE (NEGATIVE) 12/03/21 18:26 Urine Methadone Screen NEGATIVE (NEGATIVE) 12/03/21 18:26 Ur Propoxyphene Screen NEGATIVE (NEGATIVE) 12/03/21 18:26 Acetaminophen < 10 ug/mL (10-30) L 12/03/21 18:20 Ur Barbiturates Screen NEGATIVE (NEGATIVE) 12/03/21 18:26 Ur Tricyclics Screen NEGATIVE (NEGATIVE) 12/03/21 18:26 Ur Phencyclidine Scrn NEGATIVE (NEGATIVE) 12/03/21 18:26 Ur Amphetamine Screen NEGATIVE (NEGATIVE) 12/03/21 18:26 U Methamphetamines Scrn NEGATIVE (NEGATIVE) 12/03/21 18:26 U Benzodiazepines Scrn POSITIVE (NEGATIVE) H 12/03/21 18:26 Urine Cocaine Screen NEGATIVE (NEGATIVE) 12/03/21 18:26 U Cannabinoids Screen NEGATIVE (NEGATIVE) 12/03/21 18:26 Ethyl Alcohol < 5.0 mg/dL 12/03/21 18:20 Sepsis Event Note (H) - Evaluation Current Stage of Sepsis: Ruled out
[2022-01-17] MEDS: haloperidoL 1 MG TABLET PO SCH (08:34)
[2022-01-17] MEDS: MAGNESIUM OXIDE 400 MG TABLET PO SCH (08:34)
[2022-01-17] MEDS: THIAMINE 100 MG TABLET PO SCH (08:34)
[2022-01-17] MEDS: MULTIVITAMIN TABLET PO SCH (08:34)
[2022-01-17] MEDS: NICOTINE 7 MG PATCH TOP SCH (08:35)
[2022-01-17] MEDS: polyethylene glycoL 3350 17 GM PACKET PO SCH (08:35)
[2022-01-17] MEDS: OLANZapine ODT 5 MG TABLET TL SCH (20:20)
[2022-01-17] MEDS: QUEtiapine 25 MG TABLET PO SCH (20:20)
--- NOTE | 2022-01-18 07:40 | PROVIDER PROGRESS NOTE ---
Assessment/Plan - Problem List (1) Metabolic encephalopathy Assessment/Plan: Patient appears to be functioning normally. No new incidents (2) Wernicke-Korsakoff syndrome (alcoholic) Assessment/Plan: Patient has history of chronic alcohol abuse. He had a formal evaluation by telepsych on December 07 06/27/2022. He cannot make decisions for himself. He needs a guardian and will also need permanent placement. Daughter is not able to to accommodate the patient at her house due to behavioral disturbances on his part and she has a little child at home. Continue vitamin B1 100 mg p.o. daily. (3) Alcohol abuse Assessment/Plan: Patient has not had any alcoholic beverage throughout this time in the hospital. (4) COVID-19 Assessment/Plan: This was diagnosed on 12/03/2021. Patient is currently asymptomatic and breathing comfortably on room air Repeat Covid test on 12/20/2021 was positive. Patient is now out of isolation (5) Homeless single person Assessment/Plan: Social work helping to facilitate placement. This has been particularly difficult due to some behavioral problems. - Current Meds Current Meds: Current Medications Generic Name Dose Route Start Last Admin Trade Name Freq PRN Reason Stop Dose Admin Docusate Sodium 250 - 500 mg 12/22/21 07:23 01/10/22 08:12 Docusate Sodium 250 Mg Capsule PO 250 mg DAILY PRN Administration Constipation Haloperidol 2 mg 12/19/21 21:00 01/17/22 08:34 Haloperidol 1 Mg Tablet PO 2 mg DAILY MARY Administration Magnesium Oxide 400 mg 12/05/21 09:00 01/17/22 08:34 Magnesium Oxide 400 Mg Tablet PO 400 mg DAILY MARY Administration Multivitamins 1 tab 12/05/21 09:00 01/17/22 08:34 Multivitamin Tablet PO 1 tab DAILY MARY Administration Nicotine 1 patch 01/03/22 09:00 01/17/22 08:35 Nicotine 7 Mg Patch TOP 1 patch DAILY MARY Administration Olanzapine 5 mg 12/07/21 21:00 01/17/22 20:20 Olanzapine Odt 5 Mg Tablet TL 5 mg HS MARY Administration Polyethylene Glycol 17 gm 12/09/21 14:00 01/17/22 08:35 Polyethylene Glycol 3350 17 Gm Packet PO Not Given DAILY MARY Quetiapine Fumarate 50 mg 12/10/21 21:00 01/17/22 20:20 Quetiapine 25 Mg Tablet PO 50 mg QPM MARY Administration Senna 8.6 - 17.2 mg 12/22/21 07:23 01/10/22 08:12 Senna 8.6 Mg Tablet PO 8.6 mg DAILY PRN Administration Constipation Thiamine HCl 100 mg 12/04/21 09:00 01/17/22 08:34 Thiamine 100 Mg Tablet PO 100 mg DAILY MARY Administration - Lab Result Fish Bone Diagrams: 12/12/21 08:07 12/12/21 08:07 Subjective - Subjective Patient Reports: Other (Patient was awake alert and oriented x3. He seemed to be in a pleasant mood. He denied any complaints.) Objective Vital Signs: Vital Signs - 24 hr 01/17/22 01/17/22 08:24 16:03 Temperature 36.3 C L 36.6 C Heart Rate [ 91 92 Brachial] Respiratory 16 17 Rate Blood Pressure 119/76 127/85 H [Right Brachial artery] O2 Saturation 96 96 Oxygen O2 Source Room air I&O (Last 24 Hrs): Intake and Output Totals x24h 01/16/22 01/17/22 01/19/22 23:59 23:59 00:59 Intake Total 2055 2159 Balance 2055 2159 Comments/Notes: General: Alert, Oriented x3, No acute distress HEENT: PERRLA, EOMI Neck: Supple, No JVD Neuro: Alert, Non Focal, Oriented Times 3 Cardiovascular: Regular rate, Normal S1, Normal S2 Respiratory: Chest non-tender, No respiratory distress, Breath sounds nml Abdomen: Normal bowel sounds, Soft Extremities: No clubbing, No cyanosis, No edema Skin: No rashes, No breakdown, No significant lesion - Results Results: Laboratory Results WBC 3.4 x10^3/uL (4.8-10.8) L 12/12/21 08:07 RBC 4.17 10^6/uL (4.70-6.10) L 12/12/21 08:07 Hgb 13.2 g/dL (14.0-18.0) L 12/12/21 08:07 Hct 40.3 % (42.0-52.0) L 12/12/21 08:07 MCV 96.6 fL (80.0-94.0) H 12/12/21 08:07 MCH 31.7 pg (27.0-31.0) H 12/12/21 08:07 MCHC 32.8 g/dL (32.0-36.0) 12/12/21 08:07 RDW 13.7 % (12.0-15.0) 12/12/21 08:07 Plt Count 146 10^3/uL (130-450) 12/12/21 08:07 MPV 12.8 fL (7.4-11.4) H 12/12/21 08:07 Neut # (Auto) 1.5 10^3/uL (1.5-6.6) 12/12/21 08:07 Lymph # (Auto) 1.4 10^3/uL (1.5-3.5) L 12/12/21 08:07 [place] # (Auto) 0.4 10^3/uL (0.0-1.0) 12/12/21 08:07 Eos # (Auto) 0.1 10^3/uL (0.0-0.7) 12/12/21 08:07 Baso # (Auto) 0.1 10^3/uL (0.0-0.1) 12/12/21 08:07 Absolute Nucleated RBC 0.00 x10^3/uL 12/12/21 08:07 Nucleated RBC % 0.0 /100WBC 12/12/21 08:07 PT 15.1 secs (9.9-12.6) H 12/04/21 23:33 INR 1.4 (0.8-1.2) H 12/04/21 23:33 APTT 24.8 secs (24.9-33.3) L 12/03/21 18:20 Sodium 135 mmol/L (135-145) 12/12/21 08:07 Potassium 3.8 mmol/L (3.5-5.0) 12/12/21 08:07 Chloride 101 mmol/L (101-111) 12/12/21 08:07 Carbon Dioxide 24 mmol/L (21-32) 12/12/21 08:07 Anion Gap 10.0 (6-13) 12/12/21 08:07 BUN 19 mg/dL (6-20) 12/12/21 08:07 Creatinine 0.7 mg/dL (0.6-1.2) 12/12/21 08:07 Estimated GFR (MDRD) 114 (>89) 12/12/21 08:07 Glucose 121 mg/dL (70-100) H 12/12/21 08:07 Calcium 8.7 mg/dL (8.5-10.3) 12/12/21 08:07 Phosphorus 3.6 mg/dL (2.5-4.6) 12/06/21 07:04 Magnesium 2.0 mg/dL (1.7-2.8) 12/06/21 07:04 Total Bilirubin 0.5 mg/dL (0.2-1.0) 12/12/21 08:07 Direct Bilirubin < 0.1 mg/dL (0.1-0.5) L 12/09/21 07:55 AST 149 IU/L (10-42) H 12/12/21 08:07 ALT 254 IU/L (10-60) H 12/12/21 08:07 Alkaline Phosphatase 80 IU/L (42-121) 12/12/21 08:07 Ammonia 12.5 umol/L (7-35) 12/08/21 07:54 Total Protein 7.1 g/dL (6.7-8.2) 12/12/21 08:07 Albumin 3.7 g/dL (3.2-5.5) 12/12/21 08:07 Globulin 3.4 g/dL (2.1-4.2) 12/12/21 08:07 Albumin/Globulin Ratio 1.1 (1.0-2.2) 12/12/21 08:07 Lipase 28 U/L (22-51) 12/06/21 07:04 Whole Bld Vitamin B1 TNP 12/04/21 16:52 TSH 1.25 uIU/mL (0.34-5.60) 12/03/21 18:20 Urine Color YELLOW 12/03/21 18:26 Urine Clarity CLEAR (CLEAR) 12/03/21 18:26 Urine pH 6.5 PH (5.0-7.5) 12/03/21 18:26 Ur Specific [place] 1.020 (1.002-1.030) 12/03/21 18:26 Urine Protein NEGATIVE mg/dL (NEGATIVE) 12/03/21 18:26 Urine Glucose (UA) NEGATIVE mg/dL (NEGATIVE) 12/03/21 18:26 Urine Ketones NEGATIVE mg/dL (NEGATIVE) 12/03/21 18:26 Urine Occult Blood NEGATIVE (NEGATIVE) 12/03/21 18:26 Urine Nitrite NEGATIVE (NEGATIVE) 12/03/21 18:26 Urine Bilirubin NEGATIVE (NEGATIVE) 12/03/21 18:26 Urine Urobilinogen 0.2 (NORMAL) E.U./dL (NORMAL) 12/03/21 18:26 Ur Leukocyte Esterase NEGATIVE (NEGATIVE) 12/03/21 18:26 Ur Microscopic Review NOT INDICATED 12/03/21 18:26 Urine Culture Comments NOT INDICATED 12/03/21 18:26 Nasal Adenovirus (PCR) NOT DETECTED 12/20/21 19:10 Nasal B. parapertussis DNA (PCR) NOT DETECTED 12/20/21 19:10 Nasal Coronavir 229E PCR NOT DETECTED 12/20/21 19:10 Nasal Coronavir HKU1 PCR NOT DETECTED 12/20/21 19:10 Nasal Coronavir NL63 PCR NOT DETECTED 12/20/21 19:10 Nasal Coronavir OC43 PCR NOT DETECTED 12/20/21 19:10 Nasal Enterovir/Rhinovir PCR NOT DETECTED 12/20/21 19:10 Nasal Influenza B PCR NOT DETECTED 12/20/21 19:10 Nasal Influenza A PCR NOT DETECTED 12/20/21 19:10 Nasal Parainfluen 1 PCR NOT DETECTED 12/20/21 19:10 Nasal Parainfluen 2 PCR NOT DETECTED 12/20/21 19:10 Nasal Parainfluen 3 PCR NOT DETECTED 12/20/21 19:10 Nasal Parainfluen 4 PCR NOT DETECTED 12/20/21 19:10 Nasal RSV (PCR) NOT DETECTED 12/20/21 19:10 Nasal B.pertussis DNA PCR NOT DETECTED 12/20/21 19:10 Nasal C.pneumoniae (PCR) NOT DETECTED 12/20/21 19:10 Juan Daniel Human Metapneumo PCR NOT DETECTED 12/20/21 19:10 Nasal M.pneumoniae (PCR) NOT DETECTED 12/20/21 19:10 Nasal SARS-CoV-2 (PCR) DETECTED A 12/20/21 19:10 Salicylates < 6.0 mg/dL 12/03/21 18:20 Urine Opiates Screen NEGATIVE (NEGATIVE) 12/03/21 18:26 Ur Oxycodone Screen NEGATIVE (NEGATIVE) 12/03/21 18:26 Urine Methadone Screen NEGATIVE (NEGATIVE) 12/03/21 18:26 Ur Propoxyphene Screen NEGATIVE (NEGATIVE) 12/03/21 18:26 Acetaminophen < 10 ug/mL (10-30) L 12/03/21 18:20 Ur Barbiturates Screen NEGATIVE (NEGATIVE) 12/03/21 18:26 Ur Tricyclics Screen NEGATIVE (NEGATIVE) 12/03/21 18:26 Ur Phencyclidine Scrn NEGATIVE (NEGATIVE) 12/03/21 18:26 Ur Amphetamine Screen NEGATIVE (NEGATIVE) 12/03/21 18:26 U Methamphetamines Scrn NEGATIVE (NEGATIVE) 12/03/21 18:26 U Benzodiazepines Scrn POSITIVE (NEGATIVE) H 12/03/21 18:26 Urine Cocaine Screen NEGATIVE (NEGATIVE) 12/03/21 18:26 U Cannabinoids Screen NEGATIVE (NEGATIVE) 12/03/21 18:26 Ethyl Alcohol < 5.0 mg/dL 12/03/21 18:20 Sepsis Event Note (H) - Evaluation Current Stage of Sepsis: Ruled out ABX Reporting Has patient been on IV antibiotics over the past 48 hours?: No
[2022-01-18] MEDS: THIAMINE 100 MG TABLET PO SCH (08:37)
[2022-01-18] MEDS: MAGNESIUM OXIDE 400 MG TABLET PO SCH (08:37)
[2022-01-18] MEDS: MULTIVITAMIN TABLET PO SCH (08:37)
[2022-01-18] MEDS: polyethylene glycoL 3350 17 GM PACKET PO SCH (08:38)
[2022-01-18] MEDS: haloperidoL 1 MG TABLET PO SCH (08:38)
[2022-01-18] MEDS: NICOTINE 7 MG PATCH TOP SCH (08:38)
[2022-01-18] MEDS: OLANZapine ODT 5 MG TABLET TL SCH (21:29)
[2022-01-18] MEDS: QUEtiapine 25 MG TABLET PO SCH (21:29)
--- NOTE | 2022-01-19 07:38 | PROVIDER PROGRESS NOTE ---
Assessment/Plan - Problem List (1) Metabolic encephalopathy Assessment/Plan: Patient has history of chronic alcohol abuse. He had a formal evaluation by telepsych on December 07 06/27/2022. He cannot make decisions for himself. He needs a guardian and will also need permanent placement. Daughter is not able to to accommodate the patient at her house due to behavioral disturbances on his part and she has a little child at home. Continue vitamin B1 100 mg p.o. daily. (3) Alcohol abuse Assessment/Plan: Patient has not had any alcoholic beverage throughout this time in the hospital. (4) COVID-19 Assessment/Plan: This was diagnosed on 12/03/2021. Patient is currently asymptomatic and breathing comfortably on room air Repeat Covid test on 12/20/2021 was positive. Patient is now out of isolation (5) Homeless single person Assessment/Plan: Social work helping to facilitate placement. This has been particularly difficult due to some behavioral problems. - Current Meds Current Meds: Current Medications Generic Name Dose Route Start Last Admin Trade Name Debby PRN Reason Stop Dose Admin Docusate Sodium 250 - 500 mg 12/22/21 07:23 01/10/22 08:12 Docusate Sodium 250 Mg Capsule PO 250 mg DAILY PRN Administration Constipation Haloperidol 2 mg 12/19/21 21:00 01/18/22 08:38 Haloperidol 1 Mg Tablet PO 2 mg DAILY MARY Administration Magnesium Oxide 400 mg 12/05/21 09:00 01/18/22 08:37 Magnesium Oxide 400 Mg Tablet PO 400 mg DAILY MARY Administration Multivitamins 1 tab 12/05/21 09:00 01/18/22 08:37 Multivitamin Tablet PO 1 tab DAILY MARY Administration Nicotine 1 patch 01/03/22 09:00 01/18/22 08:38 Nicotine 7 Mg Patch TOP 1 patch DAILY MARY Administration Olanzapine 5 mg 12/07/21 21:00 01/18/22 21:29 Olanzapine Odt 5 Mg Tablet TL 5 mg HS MARY Administration Polyethylene Glycol 17 gm 12/09/21 14:00 01/18/22 08:38 Polyethylene Glycol 3350 17 Gm Packet PO Not Given DAILY MARY Quetiapine Fumarate 50 mg 12/10/21 21:00 01/18/22 21:29 Quetiapine 25 Mg Tablet PO 50 mg QPM MARY Administration Senna 8.6 - 17.2 mg 12/22/21 07:23 01/10/22 08:12 Senna 8.6 Mg Tablet PO 8.6 mg DAILY PRN Administration Constipation Thiamine HCl 100 mg 12/04/21 09:00 01/18/22 08:37 Thiamine 100 Mg Tablet PO 100 mg DAILY MARY Administration - Lab Result Fish Bone Diagrams: 12/12/21 08:07 12/12/21 08:07 Subjective - Subjective Patient Reports: Other (Patient was awake alert and oriented x3. He seemed to be in a pleasant mood. He denied any complaints.) Objective Vital Signs: Vital Signs - 24 hr 01/18/22 07:57 Temperature 36.3 C L Heart Rate [ 102 H Brachial] Respiratory 16 Rate Blood Pressure 118/77 [Right Brachial artery] O2 Saturation 93 Oxygen O2 Source Room air I&O (Last 24 Hrs): Intake and Output Totals x24h 01/17/22 01/18/22 01/19/22 22:59 23:59 23:59 Intake Total Balance Comments/Notes: General: Alert, Oriented x3, No acute distress HEENT: PERRLA, EOMI Neck: Supple, No JVD Neuro: Alert, Non Focal, Oriented Times 3 Cardiovascular: Regular rate, Normal S1, Normal S2 Respiratory: Chest non-tender, No respiratory distress, Breath sounds nml Abdomen: Normal bowel sounds, Soft Extremities: No clubbing, No cyanosis, No edema Skin: No rashes, No breakdown, No significant lesion - Results Results: Laboratory Results WBC 3.4 x10^3/uL (4.8-10.8) L 12/12/21 08:07 RBC 4.17 10^6/uL (4.70-6.10) L 12/12/21 08:07 Hgb 13.2 g/dL (14.0-18.0) L 12/12/21 08:07 Hct 40.3 % (42.0-52.0) L 12/12/21 08:07 MCV 96.6 fL (80.0-94.0) H 12/12/21 08:07 MCH 31.7 pg (27.0-31.0) H 12/12/21 08:07 MCHC 32.8 g/dL (32.0-36.0) 12/12/21 08:07 RDW 13.7 % (12.0-15.0) 12/12/21 08:07 Plt Count 146 10^3/uL (130-450) 12/12/21 08:07 MPV 12.8 fL (7.4-11.4) H 12/12/21 08:07 Neut # (Auto) 1.5 10^3/uL (1.5-6.6) 12/12/21 08:07 Lymph # (Auto) 1.4 10^3/uL (1.5-3.5) L 12/12/21 08:07 [place] # (Auto) 0.4 10^3/uL (0.0-1.0) 12/12/21 08:07 Eos # (Auto) 0.1 10^3/uL (0.0-0.7) 12/12/21 08:07 Baso # (Auto) 0.1 10^3/uL (0.0-0.1) 12/12/21 08:07 Absolute Nucleated RBC 0.00 x10^3/uL 12/12/21 08:07 Nucleated RBC % 0.0 /100WBC 12/12/21 08:07 PT 15.1 secs (9.9-12.6) H 12/04/21 23:33 INR 1.4 (0.8-1.2) H 12/04/21 23:33 APTT 24.8 secs (24.9-33.3) L 12/03/21 18:20 Sodium 135 mmol/L (135-145) 12/12/21 08:07 Potassium 3.8 mmol/L (3.5-5.0) 12/12/21 08:07 Chloride 101 mmol/L (101-111) 12/12/21 08:07 Carbon Dioxide 24 mmol/L (21-32) 12/12/21 08:07 Anion Gap 10.0 (6-13) 12/12/21 08:07 BUN 19 mg/dL (6-20) 12/12/21 08:07 Creatinine 0.7 mg/dL (0.6-1.2) 12/12/21 08:07 Estimated GFR (MDRD) 114 (>89) 12/12/21 08:07 Glucose 121 mg/dL (70-100) H 12/12/21 08:07 Calcium 8.7 mg/dL (8.5-10.3) 12/12/21 08:07 Phosphorus 3.6 mg/dL (2.5-4.6) 12/06/21 07:04 Magnesium 2.0 mg/dL (1.7-2.8) 12/06/21 07:04 Total Bilirubin 0.5 mg/dL (0.2-1.0) 12/12/21 08:07 Direct Bilirubin < 0.1 mg/dL (0.1-0.5) L 12/09/21 07:55 AST 149 IU/L (10-42) H 12/12/21 08:07 ALT 254 IU/L (10-60) H 12/12/21 08:07 Alkaline Phosphatase 80 IU/L (42-121) 12/12/21 08:07 Ammonia 12.5 umol/L (7-35) 12/08/21 07:54 Total Protein 7.1 g/dL (6.7-8.2) 12/12/21 08:07 Albumin 3.7 g/dL (3.2-5.5) 12/12/21 08:07 Globulin 3.4 g/dL (2.1-4.2) 12/12/21 08:07 Albumin/Globulin Ratio 1.1 (1.0-2.2) 12/12/21 08:07 Lipase 28 U/L (22-51) 12/06/21 07:04 Whole Bld Vitamin B1 TNP 12/04/21 16:52 TSH 1.25 uIU/mL (0.34-5.60) 12/03/21 18:20 Urine Color YELLOW 12/03/21 18:26 Urine Clarity CLEAR (CLEAR) 12/03/21 18:26 Urine pH 6.5 PH (5.0-7.5) 12/03/21 18:26 Ur Specific [place] 1.020 (1.002-1.030) 12/03/21 18:26 Urine Protein NEGATIVE mg/dL (NEGATIVE) 12/03/21 18:26 Urine Glucose (UA) NEGATIVE mg/dL (NEGATIVE) 12/03/21 18:26 Urine Ketones NEGATIVE mg/dL (NEGATIVE) 12/03/21 18:26 Urine Occult Blood NEGATIVE (NEGATIVE) 12/03/21 18:26 Urine Nitrite NEGATIVE (NEGATIVE) 12/03/21 18:26 Urine Bilirubin NEGATIVE (NEGATIVE) 12/03/21 18:26 Urine Urobilinogen 0.2 (NORMAL) E.U./dL (NORMAL) 12/03/21 18:26 Ur Leukocyte Esterase NEGATIVE (NEGATIVE) 12/03/21 18:26 Ur Microscopic Review NOT INDICATED 12/03/21 18:26 Urine Culture Comments NOT INDICATED 12/03/21 18:26 Nasal Adenovirus (PCR) NOT DETECTED 12/20/21 19:10 Nasal B. parapertussis DNA (PCR) NOT DETECTED 12/20/21 19:10 Nasal Coronavir 229E PCR NOT DETECTED 12/20/21 19:10 Nasal Coronavir HKU1 PCR NOT DETECTED 12/20/21 19:10 Nasal Coronavir NL63 PCR NOT DETECTED 12/20/21 19:10 Nasal Coronavir OC43 PCR NOT DETECTED 12/20/21 19:10 Nasal Enterovir/Rhinovir PCR NOT DETECTED 12/20/21 19:10 Nasal Influenza B PCR NOT DETECTED 12/20/21 19:10 Nasal Influenza A PCR NOT DETECTED 12/20/21 19:10 Nasal Parainfluen 1 PCR NOT DETECTED 12/20/21 19:10 Nasal Parainfluen 2 PCR NOT DETECTED 12/20/21 19:10 Nasal Parainfluen 3 PCR NOT DETECTED 12/20/21 19:10 Nasal Parainfluen 4 PCR NOT DETECTED 12/20/21 19:10 Nasal RSV (PCR) NOT DETECTED 12/20/21 19:10 Nasal B.pertussis DNA PCR NOT DETECTED 12/20/21 19:10 Nasal C.pneumoniae (PCR) NOT DETECTED 12/20/21 19:10 Juan Daniel Human Metapneumo PCR NOT DETECTED 12/20/21 19:10 Nasal M.pneumoniae (PCR) NOT DETECTED 12/20/21 19:10 Nasal SARS-CoV-2 (PCR) DETECTED A 12/20/21 19:10 Salicylates < 6.0 mg/dL 12/03/21 18:20 Urine Opiates Screen NEGATIVE (NEGATIVE) 12/03/21 18:26 Ur Oxycodone Screen NEGATIVE (NEGATIVE) 12/03/21 18:26 Urine Methadone Screen NEGATIVE (NEGATIVE) 12/03/21 18:26 Ur Propoxyphene Screen NEGATIVE (NEGATIVE) 12/03/21 18:26 Acetaminophen < 10 ug/mL (10-30) L 12/03/21 18:20 Ur Barbiturates Screen NEGATIVE (NEGATIVE) 12/03/21 18:26 Ur Tricyclics Screen NEGATIVE (NEGATIVE) 12/03/21 18:26 Ur Phencyclidine Scrn NEGATIVE (NEGATIVE) 12/03/21 18:26 Ur Amphetamine Screen NEGATIVE (NEGATIVE) 12/03/21 18:26 U Methamphetamines Scrn NEGATIVE (NEGATIVE) 12/03/21 18:26 U Benzodiazepines Scrn POSITIVE (NEGATIVE) H 12/03/21 18:26 Urine Cocaine Screen NEGATIVE (NEGATIVE) 12/03/21 18:26 U Cannabinoids Screen NEGATIVE (NEGATIVE) 12/03/21 18:26 Ethyl Alcohol < 5.0 mg/dL 12/03/21 18:20 Sepsis Event Note (H) - Evaluation Current Stage of Sepsis: Ruled out ABX Reporting Has patient been on IV antibiotics over the past 48 hours?: No
[2022-01-19] MEDS: THIAMINE 100 MG TABLET PO SCH (09:27)
[2022-01-19] MEDS: haloperidoL 1 MG TABLET PO SCH (09:27)
[2022-01-19] MEDS: MULTIVITAMIN TABLET PO SCH (09:27)
[2022-01-19] MEDS: MAGNESIUM OXIDE 400 MG TABLET PO SCH (09:27)
[2022-01-19] MEDS: NICOTINE 7 MG PATCH TOP SCH (09:27)
[2022-01-19] MEDS: polyethylene glycoL 3350 17 GM PACKET PO SCH (09:28)
[2022-01-19] MEDS: QUEtiapine 25 MG TABLET PO SCH (20:41)
[2022-01-19] MEDS: OLANZapine ODT 5 MG TABLET TL SCH (20:42)
[2022-01-20] MEDS: NICOTINE 7 MG PATCH TOP SCH (08:43)
[2022-01-20] MEDS: polyethylene glycoL 3350 17 GM PACKET PO SCH (08:44)
[2022-01-20] MEDS: MAGNESIUM OXIDE 400 MG TABLET PO SCH (08:44)
[2022-01-20] MEDS: THIAMINE 100 MG TABLET PO SCH (08:44)
[2022-01-20] MEDS: haloperidoL 1 MG TABLET PO SCH (08:44)
[2022-01-20] MEDS: MULTIVITAMIN TABLET PO SCH (08:44)
--- NOTE | 2022-01-20 10:20 | PROVIDER PROGRESS NOTE ---
Assessment/Plan - Problem List (1) Metabolic encephalopathy Assessment/Plan: 01/20 acute encephalopathy was resolved. Patient is hemodynamically stable, ate whole of his meal, and walk at hallway, pt is pending for placement, social media coordinator was consulted for placement. 01/16 Patient is hemodynamically stable, ate whole of his meal, pending for placement. 01/15, pt walks and ate his all meal, pt is stable, is pending for placement. 01/14, Patient is hemodynamically stable, he ate 100% of his meal and walk in the hallway. Patient is pending for guardianship, pending for placement. 01/13 pt is stable, ate his breakfast. he report to nurse it was his mistake to walk out of hospital and did not tell anybody at last time. because of staff issue, nurse hope d/c 1:1. nurse has plan for every 30 min to check pt and documented, hospital's door is closely, and assistant front office manager help watch pt as well. Continue consult with social work for disposition planning, Patient is pending for guardianship 01/09 pt is happy and eating his breakfast, pt has no complaints. pt is stable and pending for replacement. 01/08 pt smile and happy, eating his breakfast. pt is stable, pending for placement. 01/07 pt walk, ate 100% meal. he is stable, cooperative. pt is pending for placement. 01/06 today pt is cooperative with stall and stable, pt ate whole his breakfast. pt ask lots of coffee to drink but which cause his agitation in the past. we will try use decaf for pt. pt walked out of hospital on yesterday, now pt has 1:1 safety observation. (2) Wernicke-Korsakoff syndrome (alcoholic) Assessment/Plan: He has hx of chronic alcoholic abuse and chronic elevated liver enzyme. pt present a chronic finger tremor and cognitive impairment. pt had cognitive evaluation by OT, his score was 16/30. pt also had tele psychiatrist evaluation and pt has Haldol and Zyprexa. We are continuing PO Thaimine daily for this pt. He will again be on 1:1 monitoring. (3) COVID-19 Impression: Pt is asymptomatic without respiratory distress. pt walk at hallway. He is off of precautions. (4) Homeless single person Impression: pt's this situation further made his disposition difficult and he is required to have guardianship for his disposition. call circuit worker was consulted and it might be a prolonged process and need extended period of time in hospitalization (5) Alcohol abuse Impression: He has hx of chronic alcoholic abuse and often intoxicated when in the ED in the past. He initially went through alcohol withdrawal many weeks ago, but this has now resolved. His librium was tapered to off. (6)elevated liver enzyme pt has hx of chronic alcoholic abuse which likely contribute to his elevated liver enzyme. pt ate all his meal, walk at hallway. pt already did not drink alcohol in this whole hospital stay now. hopefully pt continue stopping drinking of alcohol, followup with PCP and GI as out-pt after d/c to monitor. - Current Meds Current Meds: Current Medications Generic Name Dose Route Start Last Admin Trade Name Debby PRN Reason Stop Dose Admin Docusate Sodium 250 - 500 mg 12/22/21 07:23 01/10/22 08:12 Docusate Sodium 250 Mg Capsule PO 250 mg DAILY PRN Administration Constipation Haloperidol 2 mg 12/19/21 21:00 01/20/22 08:44 Haloperidol 1 Mg Tablet PO 2 mg DAILY MARY Administration Magnesium Oxide 400 mg 12/05/21 09:00 01/20/22 08:44 Magnesium Oxide 400 Mg Tablet PO 400 mg DAILY MARY Administration Multivitamins 1 tab 12/05/21 09:00 01/20/22 08:44 Multivitamin Tablet PO 1 tab DAILY MARY Administration Nicotine 1 patch 01/03/22 09:00 01/20/22 08:43 Nicotine 7 Mg Patch TOP 1 patch DAILY MARY Administration Olanzapine 5 mg 12/07/21 21:00 01/19/22 20:42 Olanzapine Odt 5 Mg Tablet TL 5 mg HS MARY Administration Polyethylene Glycol 17 gm 12/09/21 14:00 01/20/22 08:44 Polyethylene Glycol 3350 17 Gm Packet PO Not Given DAILY MARY Quetiapine Fumarate 50 mg 12/10/21 21:00 01/19/22 20:41 Quetiapine 25 Mg Tablet PO 50 mg QPM MARY Administration Senna 8.6 - 17.2 mg 12/22/21 07:23 01/10/22 08:12 Senna 8.6 Mg Tablet PO 8.6 mg DAILY PRN Administration Constipation Thiamine HCl 100 mg 12/04/21 09:00 01/20/22 08:44 Thiamine 100 Mg Tablet PO 100 mg DAILY MARY Administration - Lab Result Fish Bone Diagrams: 12/12/21 08:07 12/12/21 08:07 Subjective - Subjective Patient Reports: Resting Comfortably, No Complaints Objective Vital Signs: Vital Signs - 24 hr 01/20/22 08:25 Temperature 36.3 C L Heart Rate [ 110 H Brachial] Respiratory 16 Rate Blood Pressure 132/86 H [Right Brachial artery] O2 Saturation 96 Oxygen O2 Source Room air I&O (Last 24 Hrs): Intake and Output Totals x24h 01/18/22 01/19/22 01/20/22 23:59 23:59 23:59 Intake Total 2560 960 Balance 2560 960 General: Alert, Cooperative, No acute distress HEENT: Atraumatic Neck: Supple Lymphatic: no adenopathy Neuro: Alert, Non Focal Cardiovascular: Regular rate, Normal S1, Normal S2 Respiratory: Chest non-tender, No respiratory distress Abdomen: Normal bowel sounds, Soft Extremities: Normal pulses - Results Results: Laboratory Results WBC 3.4 x10^3/uL (4.8-10.8) L 12/12/21 08:07 RBC 4.17 10^6/uL (4.70-6.10) L 12/12/21 08:07 Hgb 13.2 g/dL (14.0-18.0) L 12/12/21 08:07 Hct 40.3 % (42.0-52.0) L 12/12/21 08:07 MCV 96.6 fL (80.0-94.0) H 12/12/21 08:07 MCH 31.7 pg (27.0-31.0) H 12/12/21 08:07 MCHC 32.8 g/dL (32.0-36.0) 12/12/21 08:07 RDW 13.7 % (12.0-15.0) 12/12/21 08:07 Plt Count 146 10^3/uL (130-450) 12/12/21 08:07 MPV 12.8 fL (7.4-11.4) H 12/12/21 08:07 Neut # (Auto) 1.5 10^3/uL (1.5-6.6) 12/12/21 08:07 Lymph # (Auto) 1.4 10^3/uL (1.5-3.5) L 12/12/21 08:07 [place] # (Auto) 0.4 10^3/uL (0.0-1.0) 12/12/21 08:07 Eos # (Auto) 0.1 10^3/uL (0.0-0.7) 12/12/21 08:07 Baso # (Auto) 0.1 10^3/uL (0.0-0.1) 12/12/21 08:07 Absolute Nucleated RBC 0.00 x10^3/uL 12/12/21 08:07 Nucleated RBC % 0.0 /100WBC 12/12/21 08:07 PT 15.1 secs (9.9-12.6) H 12/04/21 23:33 INR 1.4 (0.8-1.2) H 12/04/21 23:33 APTT 24.8 secs (24.9-33.3) L 12/03/21 18:20 Sodium 135 mmol/L (135-145) 12/12/21 08:07 Potassium 3.8 mmol/L (3.5-5.0) 12/12/21 08:07 Chloride 101 mmol/L (101-111) 12/12/21 08:07 Carbon Dioxide 24 mmol/L (21-32) 12/12/21 08:07 Anion Gap 10.0 (6-13) 12/12/21 08:07 BUN 19 mg/dL (6-20) 12/12/21 08:07 Creatinine 0.7 mg/dL (0.6-1.2) 12/12/21 08:07 Estimated GFR (MDRD) 114 (>89) 12/12/21 08:07 Glucose 121 mg/dL (70-100) H 12/12/21 08:07 Calcium 8.7 mg/dL (8.5-10.3) 12/12/21 08:07 Phosphorus 3.6 mg/dL (2.5-4.6) 12/06/21 07:04 Magnesium 2.0 mg/dL (1.7-2.8) 12/06/21 07:04 Total Bilirubin 0.5 mg/dL (0.2-1.0) 12/12/21 08:07 Direct Bilirubin < 0.1 mg/dL (0.1-0.5) L 12/09/21 07:55 AST 149 IU/L (10-42) H 12/12/21 08:07 ALT 254 IU/L (10-60) H 12/12/21 08:07 Alkaline Phosphatase 80 IU/L (42-121) 12/12/21 08:07 Ammonia 12.5 umol/L (7-35) 12/08/21 07:54 Total Protein 7.1 g/dL (6.7-8.2) 12/12/21 08:07 Albumin 3.7 g/dL (3.2-5.5) 12/12/21 08:07 Globulin 3.4 g/dL (2.1-4.2) 12/12/21 08:07 Albumin/Globulin Ratio 1.1 (1.0-2.2) 12/12/21 08:07 Lipase 28 U/L (22-51) 12/06/21 07:04 Whole Bld Vitamin B1 TNP 12/04/21 16:52 TSH 1.25 uIU/mL (0.34-5.60) 12/03/21 18:20 Urine Color YELLOW 12/03/21 18:26 Urine Clarity CLEAR (CLEAR) 12/03/21 18:26 Urine pH 6.5 PH (5.0-7.5) 12/03/21 18:26 Ur Specific [place] 1.020 (1.002-1.030) 12/03/21 18:26 Urine Protein NEGATIVE mg/dL (NEGATIVE) 12/03/21 18:26 Urine Glucose (UA) NEGATIVE mg/dL (NEGATIVE) 12/03/21 18:26 Urine Ketones NEGATIVE mg/dL (NEGATIVE) 12/03/21 18:26 Urine Occult Blood NEGATIVE (NEGATIVE) 12/03/21 18:26 Urine Nitrite NEGATIVE (NEGATIVE) 12/03/21 18:26 Urine Bilirubin NEGATIVE (NEGATIVE) 12/03/21 18:26 Urine Urobilinogen 0.2 (NORMAL) E.U./dL (NORMAL) 12/03/21 18:26 Ur Leukocyte Esterase NEGATIVE (NEGATIVE) 12/03/21 18:26 Ur Microscopic Review NOT INDICATED 12/03/21 18:26 Urine Culture Comments NOT INDICATED 12/03/21 18:26 Nasal Adenovirus (PCR) NOT DETECTED 12/20/21 19:10 Nasal B. parapertussis DNA (PCR) NOT DETECTED 12/20/21 19:10 Nasal Coronavir 229E PCR NOT DETECTED 12/20/21 19:10 Nasal Coronavir HKU1 PCR NOT DETECTED 12/20/21 19:10 Nasal Coronavir NL63 PCR NOT DETECTED 12/20/21 19:10 Nasal Coronavir OC43 PCR NOT DETECTED 12/20/21 19:10 Nasal Enterovir/Rhinovir PCR NOT DETECTED 12/20/21 19:10 Nasal Influenza B PCR NOT DETECTED 12/20/21 19:10 Nasal Influenza A PCR NOT DETECTED 12/20/21 19:10 Nasal Parainfluen 1 PCR NOT DETECTED 12/20/21 19:10 Nasal Parainfluen 2 PCR NOT DETECTED 12/20/21 19:10 Nasal Parainfluen 3 PCR NOT DETECTED 12/20/21 19:10 Nasal Parainfluen 4 PCR NOT DETECTED 12/20/21 19:10 Nasal RSV (PCR) NOT DETECTED 12/20/21 19:10 Nasal B.pertussis DNA PCR NOT DETECTED 12/20/21 19:10 Nasal C.pneumoniae (PCR) NOT DETECTED 12/20/21 19:10 Juan Daniel Human Metapneumo PCR NOT DETECTED 12/20/21 19:10 Nasal M.pneumoniae (PCR) NOT DETECTED 12/20/21 19:10 Nasal SARS-CoV-2 (PCR) DETECTED A 12/20/21 19:10 Salicylates < 6.0 mg/dL 12/03/21 18:20 Urine Opiates Screen NEGATIVE (NEGATIVE) 12/03/21 18:26 Ur Oxycodone Screen NEGATIVE (NEGATIVE) 12/03/21 18:26 Urine Methadone Screen NEGATIVE (NEGATIVE) 12/03/21 18:26 Ur Propoxyphene Screen NEGATIVE (NEGATIVE) 12/03/21 18:26 Acetaminophen < 10 ug/mL (10-30) L 12/03/21 18:20 Ur Barbiturates Screen NEGATIVE (NEGATIVE) 12/03/21 18:26 Ur Tricyclics Screen NEGATIVE (NEGATIVE) 12/03/21 18:26 Ur Phencyclidine Scrn NEGATIVE (NEGATIVE) 12/03/21 18:26 Ur Amphetamine Screen NEGATIVE (NEGATIVE) 12/03/21 18:26 U Methamphetamines Scrn NEGATIVE (NEGATIVE) 12/03/21 18:26 U Benzodiazepines Scrn POSITIVE (NEGATIVE) H 12/03/21 18:26 Urine Cocaine Screen NEGATIVE (NEGATIVE) 12/03/21 18:26 U Cannabinoids Screen NEGATIVE (NEGATIVE) 12/03/21 18:26 Ethyl Alcohol < 5.0 mg/dL 12/03/21 18:20 Sepsis Event Note (H) - Evaluation Current Stage of Sepsis: Ruled out ABX Reporting Has patient been on IV antibiotics over the past 48 hours?: No Current Medications - Current Medications Current Medications: Active Medications Docusate Sodium (Docusate Sodium 250 Mg Capsule) 250 - 500 mg PO DAILY PRN PRN Reason: Constipation Last Admin: 01/10/22 08:12 Dose: 250 mg Haloperidol (Haloperidol 1 Mg Tablet) 2 mg PO DAILY [facility] Last Admin: 01/20/22 08:44 Dose: 2 mg Ibuprofen (Ibuprofen 400 Mg Tablet) 400 mg PO Q6HR PRN PRN Reason: Pain or Fever > 38C (100.4F) Magnesium Oxide (Magnesium Oxide 400 Mg Tablet) 400 mg PO DAILY [facility] Last Admin: 01/20/22 08:44 Dose: 400 mg Multivitamins (Multivitamin Tablet) 1 tab PO DAILY [facility] Last Admin: 01/20/22 08:44 Dose: 1 tab Nicotine (Nicotine 7 Mg Patch) 1 patch TOP DAILY [facility] Last Admin: 01/20/22 08:43 Dose: 1 patch Olanzapine (Olanzapine Odt 5 Mg Tablet) 5 mg TL HS [facility] Last Admin: 01/19/22 20:42 Dose: 5 mg Polyethylene Glycol (Polyethylene Glycol 3350 17 Gm Packet) 17 gm PO DAILY [facility] Last Admin: 01/20/22 08:44 Dose: Not Given Quetiapine Fumarate (Quetiapine 25 Mg Tablet) 50 mg PO QPM [facility] Last Admin: 01/19/22 20:41 Dose: 50 mg Senna (Senna 8.6 Mg Tablet) 8.6 - 17.2 mg PO DAILY PRN PRN Reason: Constipation Last Admin: 01/10/22 08:12 Dose: 8.6 mg Thiamine HCl (Thiamine 100 Mg Tablet) 100 mg PO DAILY [facility] Last Admin: 01/20/22 08:44 Dose: 100 mg Magnesium Oxide [Mag Ox] 400 mg PO DAILY 12/01/21 Multivitamin [Theragran] 1 each PO DAILY 12/01/21
[2022-01-20] MEDS: OLANZapine ODT 5 MG TABLET TL SCH (20:14)
[2022-01-20] MEDS: QUEtiapine 25 MG TABLET PO SCH (20:14)
[2022-01-21] MEDS: haloperidoL 1 MG TABLET PO SCH (08:21)
[2022-01-21] MEDS: NICOTINE 7 MG PATCH TOP SCH (08:21)
[2022-01-21] MEDS: MULTIVITAMIN TABLET PO SCH (08:22)
[2022-01-21] MEDS: polyethylene glycoL 3350 17 GM PACKET PO SCH (08:22)
[2022-01-21] MEDS: MAGNESIUM OXIDE 400 MG TABLET PO SCH (08:22)
[2022-01-21] MEDS: THIAMINE 100 MG TABLET PO SCH (08:22)
--- NOTE | 2022-01-21 10:43 | PROVIDER PROGRESS NOTE ---
Assessment/Plan - Problem List (1) Metabolic encephalopathy Assessment/Plan: 01/21 pt is stable, walk at hallway, ate all his meal. we will try to wane and taper off his Haldol as possible. pt had psychiatrist tele consulted. Psychiatrist had recommendation for Zyprexa. 01/20 acute encephalopathy was resolved. Patient is hemodynamically stable, ate whole of his meal, and walk at hallway, pt is pending for placement, social service assistant was consulted for placement. 01/16 Patient is hemodynamically stable, ate whole of his meal, pending for placement. 01/15, pt walks and ate his all meal, pt is stable, is pending for placement. 01/14, Patient is hemodynamically stable, he ate 100% of his meal and walk in the hallway. Patient is pending for guardianship, pending for placement. 01/13 pt is stable, ate his breakfast. he report to nurse it was his mistake to walk out of hospital and did not tell anybody at last time. because of staff issue, nurse cabrera d/c 1:1. nurse has plan for every 30 min to check pt and documented, hospital's door is closely, and helpdesk administrator help watch pt as well. Continue consult with social work for disposition planning, Patient is pending for guardianship 01/09 pt is happy and eating his breakfast, pt has no complaints. pt is stable and pending for replacement. 3 pt smile and happy, eating his breakfast. pt is stable, pending for placement. 01/07 pt walk, ate 100% meal. he is stable, cooperative. pt is pending for placement. 01/06 today pt is cooperative with stall and stable, pt ate whole his breakfast. pt ask lots of coffee to drink but which cause his agitation in the past. we will try use decaf for pt. pt walked out of hospital on yesterday, now pt has 1:1 safety observation. (2) Wernicke-Korsakoff syndrome (alcoholic) Assessment/Plan: He has hx of chronic alcoholic abuse and chronic elevated liver enzyme. pt pr esent a chronic finger tremor and cognitive impairment. pt had cognitive evaluation by OT, his score was 16/30. pt also had tele psychiatrist evaluation and pt has Haldol and Zyprexa. We are continuing PO Thaimine daily for this pt. He will again be on 1:1 monitoring. (3) COVID-19 Impression: Pt is asymptomatic without respiratory distress. pt walk at hallway. He is off of precautions. (4) Homeless single person Impression: pt's this situation further made his disposition difficult and he is required to have guardianship for his disposition. criminal justice social worker was consulted and it might be a prolonged process and need extended period of time in hospitalization (5) Alcohol abuse Impression: He has hx of chronic alcoholic abuse and often intoxicated when in the ED in the past. He initially went through alcohol withdrawal many weeks ago, but this has now resolved. His librium was tapered to off. (6)elevated liver enzyme pt has hx of chronic alcoholic abuse which likely contribute to his elevated liver enzyme. pt ate all his meal, walk at hallway. pt already did not drink alcohol in this whole hospital stay now. hopefully pt continue stopping drinking of alcohol, followup with PCP and GI as out-pt after d/c to monitor. - Current Meds Current Meds: Current Medications Generic Name Dose Route Start Last Admin Trade Name Debby PRN Reason Stop Dose Admin Docusate Sodium 250 - 500 mg 12/22/21 07:23 01/10/22 08:12 Docusate Sodium 250 Mg Capsule PO 250 mg DAILY PRN Administration Constipation Haloperidol 2 mg 12/19/21 21:00 01/21/22 08:21 Haloperidol 1 Mg Tablet PO 2 mg DAILY MARY Administration Magnesium Oxide 400 mg 12/05/21 09:00 01/21/22 08:22 Magnesium Oxide 400 Mg Tablet PO 400 mg DAILY MARY Administration Multivitamins 1 tab 12/05/21 09:00 01/21/22 08:22 Multivitamin Tablet PO 1 tab DAILY MARY Administration Nicotine 1 patch 01/03/22 09:00 01/21/22 08:21 Nicotine 7 Mg Patch TOP 1 patch DAILY MARY Administration Olanzapine 5 mg 12/07/21 21:00 01/20/22 20:14 Olanzapine Odt 5 Mg Tablet TL 5 mg HS MARY Administration Polyethylene Glycol 17 gm 12/09/21 14:00 01/21/22 08:22 Polyethylene Glycol 3350 17 Gm Packet PO Not Given DAILY MARY Quetiapine Fumarate 50 mg 12/10/21 21:00 01/20/22 20:14 Quetiapine 25 Mg Tablet PO 50 mg QPM MARY Administration Senna 8.6 - 17.2 mg 12/22/21 07:23 01/10/22 08:12 Senna 8.6 Mg Tablet PO 8.6 mg DAILY PRN Administration Constipation Thiamine HCl 100 mg 12/04/21 09:00 01/21/22 08:22 Thiamine 100 Mg Tablet PO 100 mg DAILY MARY Administration - Lab Result Fish Bone Diagrams: 12/12/21 08:07 12/12/21 08:07 - Additional Planning My Orders: My Active Orders 01/21/22 09:25 Daily Weight [RC] OAW Subjective - Subjective Patient Reports: Resting Comfortably, No Complaints Objective Vital Signs: Vital Signs - 24 hr 01/21/22 07:52 Temperature 36.4 C L Heart Rate [ 83 Brachial] Respiratory 16 Rate Blood Pressure 121/82 H [Right Brachial artery] O2 Saturation 94 Oxygen O2 Source Room air I&O (Last 24 Hrs): Intake and Output Totals x24h 01/19/22 01/20/22 01/21/22 23:59 23:59 23:59 Intake Total 2560 2620 960 Balance 2560 2620 960 General: Alert, Cooperative, No acute distress HEENT: Atraumatic Neck: Supple Lymphatic: no adenopathy Neuro: Alert, Non Focal Cardiovascular: Regular rate, Normal S1, Normal S2 Respiratory: Chest non-tender, No respiratory distress Abdomen: Normal bowel sounds, Soft Extremities: Normal pulses - Results Results: Laboratory Results WBC 3.4 x10^3/uL (4.8-10.8) L 12/12/21 08:07 RBC 4.17 10^6/uL (4.70-6.10) L 12/12/21 08:07 Hgb 13.2 g/dL (14.0-18.0) L 12/12/21 08:07 Hct 40.3 % (42.0-52.0) L 12/12/21 08:07 MCV 96.6 fL (80.0-94.0) H 12/12/21 08:07 MCH 31.7 pg (27.0-31.0) H 12/12/21 08:07 MCHC 32.8 g/dL (32.0-36.0) 12/12/21 08:07 RDW 13.7 % (12.0-15.0) 12/12/21 08:07 Plt Count 146 10^3/uL (130-450) 12/12/21 08:07 MPV 12.8 fL (7.4-11.4) H 12/12/21 08:07 Neut # (Auto) 1.5 10^3/uL (1.5-6.6) 12/12/21 08:07 Lymph # (Auto) 1.4 10^3/uL (1.5-3.5) L 12/12/21 08:07 [place] # (Auto) 0.4 10^3/uL (0.0-1.0) 12/12/21 08:07 Eos # (Auto) 0.1 10^3/uL (0.0-0.7) 12/12/21 08:07 Baso # (Auto) 0.1 10^3/uL (0.0-0.1) 12/12/21 08:07 Absolute Nucleated RBC 0.00 x10^3/uL 12/12/21 08:07 Nucleated RBC % 0.0 /100WBC 12/12/21 08:07 PT 15.1 secs (9.9-12.6) H 12/04/21 23:33 INR 1.4 (0.8-1.2) H 12/04/21 23:33 APTT 24.8 secs (24.9-33.3) L 12/03/21 18:20 Sodium 135 mmol/L (135-145) 12/12/21 08:07 Potassium 3.8 mmol/L (3.5-5.0) 12/12/21 08:07 Chloride 101 mmol/L (101-111) 12/12/21 08:07 Carbon Dioxide 24 mmol/L (21-32) 12/12/21 08:07 Anion Gap 10.0 (6-13) 12/12/21 08:07 BUN 19 mg/dL (6-20) 12/12/21 08:07 Creatinine 0.7 mg/dL (0.6-1.2) 12/12/21 08:07 Estimated GFR (MDRD) 114 (>89) 12/12/21 08:07 Glucose 121 mg/dL (70-100) H 12/12/21 08:07 Calcium 8.7 mg/dL (8.5-10.3) 12/12/21 08:07 Phosphorus 3.6 mg/dL (2.5-4.6) 12/06/21 07:04 Magnesium 2.0 mg/dL (1.7-2.8) 12/06/21 07:04 Total Bilirubin 0.5 mg/dL (0.2-1.0) 12/12/21 08:07 Direct Bilirubin < 0.1 mg/dL (0.1-0.5) L 12/09/21 07:55 AST 149 IU/L (10-42) H 12/12/21 08:07 ALT 254 IU/L (10-60) H 12/12/21 08:07 Alkaline Phosphatase 80 IU/L (42-121) 12/12/21 08:07 Ammonia 12.5 umol/L (7-35) 12/08/21 07:54 Total Protein 7.1 g/dL (6.7-8.2) 12/12/21 08:07 Albumin 3.7 g/dL (3.2-5.5) 12/12/21 08:07 Globulin 3.4 g/dL (2.1-4.2) 12/12/21 08:07 Albumin/Globulin Ratio 1.1 (1.0-2.2) 12/12/21 08:07 Lipase 28 U/L (22-51) 12/06/21 07:04 Whole Bld Vitamin B1 TNP 12/04/21 16:52 TSH 1.25 uIU/mL (0.34-5.60) 12/03/21 18:20 Urine Color YELLOW 12/03/21 18:26 Urine Clarity CLEAR (CLEAR) 12/03/21 18:26 Urine pH 6.5 PH (5.0-7.5) 12/03/21 18:26 Ur Specific [place] 1.020 (1.002-1.030) 12/03/21 18:26 Urine Protein NEGATIVE mg/dL (NEGATIVE) 12/03/21 18:26 Urine Glucose (UA) NEGATIVE mg/dL (NEGATIVE) 12/03/21 18:26 Urine Ketones NEGATIVE mg/dL (NEGATIVE) 12/03/21 18:26 Urine Occult Blood NEGATIVE (NEGATIVE) 12/03/21 18:26 Urine Nitrite NEGATIVE (NEGATIVE) 12/03/21 18:26 Urine Bilirubin NEGATIVE (NEGATIVE) 12/03/21 18:26 Urine Urobilinogen 0.2 (NORMAL) E.U./dL (NORMAL) 12/03/21 18:26 Ur Leukocyte Esterase NEGATIVE (NEGATIVE) 12/03/21 18:26 Ur Microscopic Review NOT INDICATED 12/03/21 18:26 Urine Culture Comments NOT INDICATED 12/03/21 18:26 Nasal Adenovirus (PCR) NOT DETECTED 12/20/21 19:10 Nasal B. parapertussis DNA (PCR) NOT DETECTED 12/20/21 19:10 Nasal Coronavir 229E PCR NOT DETECTED 12/20/21 19:10 Nasal Coronavir HKU1 PCR NOT DETECTED 12/20/21 19:10 Nasal Coronavir NL63 PCR NOT DETECTED 12/20/21 19:10 Nasal Coronavir OC43 PCR NOT DETECTED 12/20/21 19:10 Nasal Enterovir/Rhinovir PCR NOT DETECTED 12/20/21 19:10 Nasal Influenza B PCR NOT DETECTED 12/20/21 19:10 Nasal Influenza A PCR NOT DETECTED 12/20/21 19:10 Nasal Parainfluen 1 PCR NOT DETECTED 12/20/21 19:10 Nasal Parainfluen 2 PCR NOT DETECTED 12/20/21 19:10 Nasal Parainfluen 3 PCR NOT DETECTED 12/20/21 19:10 Nasal Parainfluen 4 PCR NOT DETECTED 12/20/21 19:10 Nasal RSV (PCR) NOT DETECTED 12/20/21 19:10 Nasal B.pertussis DNA PCR NOT DETECTED 12/20/21 19:10 Nasal C.pneumoniae (PCR) NOT DETECTED 12/20/21 19:10 Juan Daniel Human Metapneumo PCR NOT DETECTED 12/20/21 19:10 Nasal M.pneumoniae (PCR) NOT DETECTED 12/20/21 19:10 Nasal SARS-CoV-2 (PCR) DETECTED A 12/20/21 19:10 Salicylates < 6.0 mg/dL 12/03/21 18:20 Urine Opiates Screen NEGATIVE (NEGATIVE) 12/03/21 18:26 Ur Oxycodone Screen NEGATIVE (NEGATIVE) 12/03/21 18:26 Urine Methadone Screen NEGATIVE (NEGATIVE) 12/03/21 18:26 Ur Propoxyphene Screen NEGATIVE (NEGATIVE) 12/03/21 18:26 Acetaminophen < 10 ug/mL (10-30) L 12/03/21 18:20 Ur Barbiturates Screen NEGATIVE (NEGATIVE) 12/03/21 18:26 Ur Tricyclics Screen NEGATIVE (NEGATIVE) 12/03/21 18:26 Ur Phencyclidine Scrn NEGATIVE (NEGATIVE) 12/03/21 18:26 Ur Amphetamine Screen NEGATIVE (NEGATIVE) 12/03/21 18:26 U Methamphetamines Scrn NEGATIVE (NEGATIVE) 12/03/21 18:26 U Benzodiazepines Scrn POSITIVE (NEGATIVE) H 12/03/21 18:26 Urine Cocaine Screen NEGATIVE (NEGATIVE) 12/03/21 18:26 U Cannabinoids Screen NEGATIVE (NEGATIVE) 12/03/21 18:26 Ethyl Alcohol < 5.0 mg/dL 12/03/21 18:20 Sepsis Event Note (H) - Evaluation Current Stage of Sepsis: Ruled out ABX Reporting Has patient been on IV antibiotics over the past 48 hours?: No Current Medications - Current Medications Current Medications: Active Medications Docusate Sodium (Docusate Sodium 250 Mg Capsule) 250 - 500 mg PO DAILY PRN PRN Reason: Constipation Last Admin: 01/10/22 08:12 Dose: 250 mg Haloperidol (Haloperidol 1 Mg Tablet) 1 mg PO DAILY [facility] Ibuprofen (Ibuprofen 400 Mg Tablet) 400 mg PO Q6HR PRN PRN Reason: Pain or Fever > 38C (100.4F) Magnesium Oxide (Magnesium Oxide 400 Mg Tablet) 400 mg PO DAILY [facility] Last Admin: 01/21/22 08:22 Dose: 400 mg Multivitamins (Multivitamin Tablet) 1 tab PO DAILY [facility] Last Admin: 01/21/22 08:22 Dose: 1 tab Nicotine (Nicotine 7 Mg Patch) 1 patch TOP DAILY [facility] Last Admin: 01/21/22 08:21 Dose: 1 patch Olanzapine (Olanzapine Odt 5 Mg Tablet) 5 mg TL HS [facility] Last Admin: 01/20/22 20:14 Dose: 5 mg Polyethylene Glycol (Polyethylene Glycol 3350 17 Gm Packet) 17 gm PO DAILY [facility] Last Admin: 01/21/22 08:22 Dose: Not Given Quetiapine Fumarate (Quetiapine 25 Mg Tablet) 50 mg PO QPM [facility] Last Admin: 01/20/22 20:14 Dose: 50 mg Senna (Senna 8.6 Mg Tablet) 8.6 - 17.2 mg PO DAILY PRN PRN Reason: Constipation Last Admin: 01/10/22 08:12 Dose: 8.6 mg Thiamine HCl (Thiamine 100 Mg Tablet) 100 mg PO DAILY [facility] Last Admin: 01/21/22 08:22 Dose: 100 mg Magnesium Oxide [Mag Ox] 400 mg PO DAILY 12/01/21 Multivitamin [Theragran] 1 each PO DAILY 12/01/21
[2022-01-21] MEDS: QUEtiapine 25 MG TABLET PO SCH (21:56)
[2022-01-21] MEDS: OLANZapine ODT 5 MG TABLET TL SCH (21:56)
[2022-01-22] MEDS: THIAMINE 100 MG TABLET PO SCH (08:39)
[2022-01-22] MEDS: haloperidoL 1 MG TABLET PO SCH (08:39)
[2022-01-22] MEDS: MAGNESIUM OXIDE 400 MG TABLET PO SCH (08:39)
[2022-01-22] MEDS: MULTIVITAMIN TABLET PO SCH (08:39)
[2022-01-22] MEDS: NICOTINE 7 MG PATCH TOP SCH (08:39)
[2022-01-22] MEDS: polyethylene glycoL 3350 17 GM PACKET PO SCH (08:40)
--- NOTE | 2022-01-22 11:02 | PROVIDER PROGRESS NOTE ---
Assessment/Plan - Problem List (1) Metabolic encephalopathy Assessment/Plan: 01/22 pt is Hemodynamic stable, has no complaints, he ate all his meal and walk at hallway. continue 1mg haldol now and gradually wane off haldol as pt tolerate. pt is pending for placement. 01/21 pt is stable, walk at hallway, ate all his meal. we will try to wane and taper off his Haldol as possible. pt had psychiatrist tele consulted. Psychiatrist had recommendation for Zyprexa. 01/20 acute encephalopathy was resolved. Patient is hemodynamically stable, ate whole of his meal, and walk at hallway, pt is pending for placement, social media executive was consulted for placement. 01/16 Patient is hemodynamically stable, ate whole of his meal, pending for placement. 01/15, pt walks and ate his all meal, pt is stable, is pending for placement. 01/14, Patient is hemodynamically stable, he ate 100% of his meal and walk in the hallway. Patient is pending for guardianship, pending for placement. 01/13 pt is stable, ate his breakfast. he report to nurse it was his mistake to walk out of hospital and did not tell anybody at last time. because of staff issue, nurse hope d/c 1:1. nurse has plan for every 30 min to check pt and doc umented, hospital's door is closely, and front edger help watch pt as well. Continue consult with social work for disposition planning, Patient is pending for guardianship 01/09 pt is happy and eating his breakfast, pt has no complaints. pt is stable and pending for replacement. 01/08 pt smile and happy, eating his breakfast. pt is stable, pending for placement. 01/07 pt walk, ate 100% meal. he is stable, cooperative. pt is pending for placement. 01/06 today pt is cooperative with stall and stable, pt ate whole his breakfast. pt ask lots of coffee to drink but which cause his agitation in the past. we will try use decaf for pt. pt walked out of hospital on yesterday, now pt has 1:1 safety observation. (2) Wernicke-Korsakoff syndrome (alcoholic) Assessment/Plan: He has hx of chronic alcoholic abuse and chronic elevated liver enzyme. pt present a chronic finger tremor and cognitive impairment. pt had cognitive evaluation by OT, his score was 16/30. pt also had tele psychiatrist evaluation and pt has Haldol and Zyprexa. We are continuing PO Thaimine daily for this pt. He will again be on 1:1 monitoring. (3) COVID-19 Impression: Pt is asymptomatic without respiratory distress. pt walk at hallway. He is off of precautions. (4) Homeless single person Impression: pt's this situation further made his disposition difficult and he is required to have guardianship for his disposition. general distillery worker was consulted and it might be a prolonged process and need extended period of time in hospitalization (5) Alcohol abuse Impression: He has hx of chronic alcoholic abuse and often intoxicated when in the ED in the past. He initially went through alcohol withdrawal many weeks ago, but this has now resolved. His librium was tapered to off. (6)elevated liver enzyme pt has hx of chronic alcoholic abuse which likely contribute to his elevated liver enzyme. pt ate all his meal, walk at hallway. pt already did not drink alcohol in this whole hospital stay now. hopefully pt continue stopping drink ing of alcohol, followup with PCP and GI as out-pt after d/c to monitor. - Current Meds Current Meds: Current Medications Generic Name Dose Route Start Last Admin Trade Name Lazaroq PRN Reason Stop Dose Admin Docusate Sodium 250 - 500 mg 12/22/21 07:23 01/10/22 08:12 Docusate Sodium 250 Mg Capsule PO 250 mg DAILY PRN Administration Constipation Haloperidol 1 mg 01/22/22 09:00 01/22/22 08:39 Haloperidol 1 Mg Tablet PO 1 mg DAILY MARY Administration Magnesium Oxide 400 mg 12/05/21 09:00 01/22/22 08:39 Magnesium Oxide 400 Mg Tablet PO 400 mg DAILY MARY Administration Multivitamins 1 tab 12/05/21 09:00 01/22/22 08:39 Multivitamin Tablet PO 1 tab DAILY MARY Administration Nicotine 1 patch 01/03/22 09:00 01/22/22 08:39 Nicotine 7 Mg Patch TOP 1 patch DAILY MARY Administration Olanzapine 5 mg 12/07/21 21:00 01/21/22 21:56 Olanzapine Odt 5 Mg Tablet TL 5 mg HS MARY Administration Polyethylene Glycol 17 gm 12/09/21 14:00 01/22/22 08:40 Polyethylene Glycol 3350 17 Gm Packet PO Not Given DAILY MARY Quetiapine Fumarate 50 mg 12/10/21 21:00 01/21/22 21:56 Quetiapine 25 Mg Tablet PO 50 mg QPM MARY Administration Senna 8.6 - 17.2 mg 12/22/21 07:23 01/10/22 08:12 Senna 8.6 Mg Tablet PO 8.6 mg DAILY PRN Administration Constipation Thiamine HCl 100 mg 12/04/21 09:00 01/22/22 08:39 Thiamine 100 Mg Tablet PO 100 mg DAILY MARY Administration - Lab Result Fish Bone Diagrams: 12/12/21 08:07 12/12/21 08:07 - Additional Planning My Orders: My Active Orders 01/22/22 09:00 haloperidoL [Haldol] 1 mg PO DAILY Subjective - Subjective Patient Reports: Resting Comfortably, No Complaints Objective Vital Signs: Vital Signs - 24 hr 01/22/22 07:26 Temperature 36.4 C L Heart Rate [ 100 Brachial] Respiratory 16 Rate Blood Pressure 110/78 [Right Brachial artery] O2 Saturation 94 Oxygen O2 Source Room air I&O (Last 24 Hrs): Intake and Output Totals x24h 01/20/22 01/21/22 01/22/22 23:59 23:59 23:59 Intake Total 2620 2236 940 Balance 2620 2236 940 General: Alert, Cooperative, No acute distress HEENT: Atraumatic Neck: Supple Lymphatic: no adenopathy Neuro: Alert, Non Focal Cardiovascular: Regular rate, Normal S1, Normal S2 Respiratory: Chest non-tender, No respiratory distress Abdomen: Normal bowel sounds, Soft Extremities: Normal pulses - Results Results: Laboratory Results WBC 3.4 x10^3/uL (4.8-10.8) L 12/12/21 08:07 RBC 4.17 10^6/uL (4.70-6.10) L 12/12/21 08:07 Hgb 13.2 g/dL (14.0-18.0) L 12/12/21 08:07 Hct 40.3 % (42.0-52.0) L 12/12/21 08:07 MCV 96.6 fL (80.0-94.0) H 12/12/21 08:07 MCH 31.7 pg (27.0-31.0) H 12/12/21 08:07 MCHC 32.8 g/dL (32.0-36.0) 12/12/21 08:07 RDW 13.7 % (12.0-15.0) 12/12/21 08:07 Plt Count 146 10^3/uL (130-450) 12/12/21 08:07 MPV 12.8 fL (7.4-11.4) H 12/12/21 08:07 Neut # (Auto) 1.5 10^3/uL (1.5-6.6) 12/12/21 08:07 Lymph # (Auto) 1.4 10^3/uL (1.5-3.5) L 12/12/21 08:07 [place] # (Auto) 0.4 10^3/uL (0.0-1.0) 12/12/21 08:07 Eos # (Auto) 0.1 10^3/uL (0.0-0.7) 12/12/21 08:07 Baso # (Auto) 0.1 10^3/uL (0.0-0.1) 12/12/21 08:07 Absolute Nucleated RBC 0.00 x10^3/uL 12/12/21 08:07 Nucleated RBC % 0.0 /100WBC 12/12/21 08:07 PT 15.1 secs (9.9-12.6) H 12/04/21 23:33 INR 1.4 (0.8-1.2) H 12/04/21 23:33 APTT 24.8 secs (24.9-33.3) L 12/03/21 18:20 Sodium 135 mmol/L (135-145) 12/12/21 08:07 Potassium 3.8 mmol/L (3.5-5.0) 12/12/21 08:07 Chloride 101 mmol/L (101-111) 12/12/21 08:07 Carbon Dioxide 24 mmol/L (21-32) 12/12/21 08:07 Anion Gap 10.0 (6-13) 12/12/21 08:07 BUN 19 mg/dL (6-20) 12/12/21 08:07 Creatinine 0.7 mg/dL (0.6-1.2) 12/12/21 08:07 Estimated GFR (MDRD) 114 (>89) 12/12/21 08:07 Glucose 121 mg/dL (70-100) H 12/12/21 08:07 Calcium 8.7 mg/dL (8.5-10.3) 12/12/21 08:07 Phosphorus 3.6 mg/dL (2.5-4.6) 12/06/21 07:04 Magnesium 2.0 mg/dL (1.7-2.8) 12/06/21 07:04 Total Bilirubin 0.5 mg/dL (0.2-1.0) 12/12/21 08:07 Direct Bilirubin < 0.1 mg/dL (0.1-0.5) L 12/09/21 07:55 AST 149 IU/L (10-42) H 12/12/21 08:07 ALT 254 IU/L (10-60) H 12/12/21 08:07 Alkaline Phosphatase 80 IU/L (42-121) 12/12/21 08:07 Ammonia 12.5 umol/L (7-35) 12/08/21 07:54 Total Protein 7.1 g/dL (6.7-8.2) 12/12/21 08:07 Albumin 3.7 g/dL (3.2-5.5) 12/12/21 08:07 Globulin 3.4 g/dL (2.1-4.2) 12/12/21 08:07 Albumin/Globulin Ratio 1.1 (1.0-2.2) 12/12/21 08:07 Lipase 28 U/L (22-51) 12/06/21 07:04 Whole Bld Vitamin B1 TNP 12/04/21 16:52 TSH 1.25 uIU/mL (0.34-5.60) 12/03/21 18:20 Urine Color YELLOW 12/03/21 18:26 Urine Clarity CLEAR (CLEAR) 12/03/21 18:26 Urine pH 6.5 PH (5.0-7.5) 12/03/21 18:26 Ur Specific [place] 1.020 (1.002-1.030) 12/03/21 18:26 Urine Protein NEGATIVE mg/dL (NEGATIVE) 12/03/21 18:26 Urine Glucose (UA) NEGATIVE mg/dL (NEGATIVE) 12/03/21 18:26 Urine Ketones NEGATIVE mg/dL (NEGATIVE) 12/03/21 18:26 Urine Occult Blood NEGATIVE (NEGATIVE) 12/03/21 18:26 Urine Nitrite NEGATIVE (NEGATIVE) 12/03/21 18: Urine Bilirubin NEGATIVE (NEGATIVE) 12/03/21 18: Urine Urobilinogen 0.2 (NORMAL) E.U./dL (NORMAL) 12/03/21 18:26 Ur Leukocyte Esterase NEGATIVE (NEGATIVE) 12/03/21 18:26 Ur Microscopic Review NOT INDICATED 12/03/21 18:26 Urine Culture Comments NOT INDICATED 12/03/21 18:26 Nasal Adenovirus (PCR) NOT DETECTED 12/20/21 19:10 Nasal B. parapertussis DNA (PCR) NOT DETECTED 12/20/21 19:10 Nasal Coronavir 229E PCR NOT DETECTED 12/20/21 19:10 Nasal Coronavir HKU1 PCR NOT DETECTED 12/20/21 19:10 Nasal Coronavir NL63 PCR NOT DETECTED 12/20/21 19:10 Nasal Coronavir OC43 PCR NOT DETECTED 12/20/21 19:10 Nasal Enterovir/Rhinovir PCR NOT DETECTED 12/20/21 19:10 Nasal Influenza B PCR NOT DETECTED 12/20/21 19:10 Nasal Influenza A PCR NOT DETECTED 12/20/21 19:10 Nasal Parainfluen 1 PCR NOT DETECTED 12/20/21 19:10 Nasal Parainfluen 2 PCR NOT DETECTED 12/20/21 19:10 Nasal Parainfluen 3 PCR NOT DETECTED 12/20/21 19:10 Nasal Parainfluen 4 PCR NOT DETECTED 12/20/21 19:10 Nasal RSV (PCR) NOT DETECTED 12/20/21 19:10 Nasal B.pertussis DNA PCR NOT DETECTED 12/20/21 19:10 Nasal C.pneumoniae (PCR) NOT DETECTED 12/20/21 19:10 Juan Daniel Human Metapneumo PCR NOT DETECTED 12/20/21 19:10 Nasal M.pneumoniae (PCR) NOT DETECTED 12/20/21 19:10 Nasal SARS-CoV-2 (PCR) DETECTED A 12/20/21 19:10 Salicylates < 6.0 mg/dL 12/03/21 18:20 Urine Opiates Screen NEGATIVE (NEGATIVE) 12/03/21 18:26 Ur Oxycodone Screen NEGATIVE (NEGATIVE) 12/03/21 18:26 Urine Methadone Screen NEGATIVE (NEGATIVE) 12/03/21 18:26 Ur Propoxyphene Screen NEGATIVE (NEGATIVE) 12/03/21 18:26 Acetaminophen < 10 ug/mL (10-30) L 12/03/21 18:20 Ur Barbiturates Screen NEGATIVE (NEGATIVE) 12/03/21 18:26 Ur Tricyclics Screen NEGATIVE (NEGATIVE) 12/03/21 18:26 Ur Phencyclidine Scrn NEGATIVE (NEGATIVE) 12/03/21 18:26 Ur Amphetamine Screen NEGATIVE (NEGATIVE) 12/03/21 18:26 U Methamphetamines Scrn NEGATIVE (NEGATIVE) 12/03/21 18:26 U Benzodiazepines Scrn POSITIVE (NEGATIVE) H 12/03/21 18:26 Urine Cocaine Screen NEGATIVE (NEGATIVE) 12/03/21 18:26 U Cannabinoids Screen NEGATIVE (NEGATIVE) 12/03/21 18:26 Ethyl Alcohol < 5.0 mg/dL 12/03/21 18:20 Sepsis Event Note (H) - Evaluation Current Stage of Sepsis: Ruled out ABX Reporting Has patient been on IV antibiotics over the past 48 hours?: No Current Medications - Current Medications Current Medications: Active Medications Docusate Sodium (Docusate Sodium 250 Mg Capsule) 250 - 500 mg PO DAILY PRN PRN Reason: Constipation Last Admin: 01/10/22 08:12 Dose: 250 mg Haloperidol (Haloperidol 1 Mg Tablet) 1 mg PO DAILY [facility] Last Admin: 01/22/22 08:39 Dose: 1 mg Ibuprofen (Ibuprofen 400 Mg Tablet) 400 mg PO Q6HR PRN PRN Reason: Pain or Fever > 38C (100.4F) Magnesium Oxide (Magnesium Oxide 400 Mg Tablet) 400 mg PO DAILY [facility] Last Admin: 01/22/22 08:39 Dose: 400 mg Multivitamins (Multivitamin Tablet) 1 tab PO DAILY [facility] Last Admin: 01/22/22 08:39 Dose: 1 tab Nicotine (Nicotine 7 Mg Patch) 1 patch TOP DAILY [facility] Last Admin: 01/22/22 08:39 Dose: 1 patch Olanzapine (Olanzapine Odt 5 Mg Tablet) 5 mg TL HS [facility] Last Admin: 01/21/22 21:56 Dose: 5 mg Polyethylene Glycol (Polyethylene Glycol 3350 17 Gm Packet) 17 gm PO DAILY [facility] Last Admin: 01/22/22 08:40 Dose: Not Given Quetiapine Fumarate (Quetiapine 25 Mg Tablet) 50 mg PO QPM [facility] Last Admin: 01/21/22 21:56 Dose: 50 mg Senna (Senna 8.6 Mg Tablet) 8.6 - 17.2 mg PO DAILY PRN PRN Reason: Constipation Last Admin: 01/10/22 08:12 Dose: 8.6 mg Thiamine HCl (Thiamine 100 Mg Tablet) 100 mg PO DAILY MARY Last Admin: 01/22/22 08:39 Dose: 100 mg Magnesium Oxide [Mag Ox] 400 mg PO DAILY 12/01/21 Multivitamin [Theragran] 1 each PO DAILY 12/01/21
[2022-01-22] MEDS: OLANZapine ODT 5 MG TABLET TL SCH (20:57)
[2022-01-22] MEDS: QUEtiapine 25 MG TABLET PO SCH (20:57)
[2022-01-23] MEDS: polyethylene glycoL 3350 17 GM PACKET PO SCH (09:14)
[2022-01-23] MEDS: haloperidoL 1 MG TABLET PO SCH (09:14)
[2022-01-23] MEDS: MULTIVITAMIN TABLET PO SCH (09:14)
[2022-01-23] MEDS: MAGNESIUM OXIDE 400 MG TABLET PO SCH (09:14)
[2022-01-23] MEDS: NICOTINE 7 MG PATCH TOP SCH (09:14)
[2022-01-23] MEDS: THIAMINE 100 MG TABLET PO SCH (09:14)
--- NOTE | 2022-01-23 09:30 | PROVIDER PROGRESS NOTE ---
Assessment/Plan - Problem List (1) Metabolic encephalopathy Assessment/Plan: 01/22, pt has no complaints, is stable for placement. 01/22 pt is Hemodynamic stable, has no complaints, he ate all his meal and walk at hallway. continue 1mg haldol now and gradually wane off haldol as pt tolerate. pt is pending for placement. 01/21 pt is stable, walk at hallway, ate all his meal. we will try to wane and taper off his Haldol as possible. pt had psychiatrist tele consulted. Psychiatrist had recommendation for Zyprexa. 01/20 acute encephalopathy was resolved. Patient is hemodynamically stable, ate whole of his meal, and walk at hallway, pt is pending for placement, social worker delinquency prevention was consulted for placement. 01/16 Patient is hemodynamically stable, ate whole of his meal, pending for placement. 01/15, pt walks and ate his all meal, pt is stable, is pending for placement. 01/14, Patient is hemodynamically stable, he ate 100% of his meal and walk in the hallway. Patient is pending for guardianship, pending for placement. 01/13 pt is stable, ate his breakfast. he report to nurse it was his mistake to walk out of hospital and did not tell anybody at last time. because of staff issue, nurse hope d/c 1:1. nurse has plan for every 30 min to check pt and documented, hospital's door is closely, and front office director help watch pt as well. Continue consult with social work for disposition planning, Patient is pending for guardianship 01/09 pt is happy and eating his breakfast, pt has no complaints. pt is stable and pending for replacement. 01/08 pt smile and happy, eating his breakfast. pt is stable, pending for placement. 01/07 pt walk, ate 100% meal. he is stable, cooperative. pt is pending for placem ent. 01/06 today pt is cooperative with stall and stable, pt ate whole his breakfast. pt ask lots of coffee to drink but which cause his agitation in the past. we will try use decaf for pt. pt walked out of hospital on yesterday, now pt has 1:1 safety observation. (2) Wernicke-Korsakoff syndrome (alcoholic) Assessment/Plan: He has hx of chronic alcoholic abuse and chronic elevated liver enzyme. pt present a chronic finger tremor and cognitive impairment. pt had cognitive evaluation by OT, his score was 16/30. pt also had tele psychiatrist evaluation and pt has Haldol and Zyprexa. We are continuing PO Thaimine daily for this pt. He will again be on 1:1 monitoring. (3) COVID-19 Impression: Pt is asymptomatic without respiratory distress. pt walk at hallway. He is off of precautions. (4) Homeless single person Impression: pt's this situation further made his disposition difficult and he is required to have guardianship for his disposition. bottom worker was consulted and it might be a prolonged process and need extended period of time in hospitalization (5) Alcohol abuse Impression: He has hx of chronic alcoholic abuse and often intoxicated when in the ED in the past. He initially went through alcohol withdrawal many weeks ago, but this has now resolved. His librium was tapered to off. (6)elevated liver enzyme pt has hx of chronic alcoholic abuse which likely contribute to his elevated liver enzyme. pt ate all his meal, walk at hallway. pt already did not drink alcohol in this whole hospital stay now. hopefully pt continue stopping drinking of alcohol, followup with PCP and GI as out-pt after d/c to monitor. - Current Meds Current Meds: Current Medications Generic Name Dose Route Start Last Admin Trade Name Debby PRN Reason Stop Dose Admin Docusate Sodium 250 - 500 mg 12/22/21 07:23 01/10/22 08:12 Docusate Sodium 250 Mg Capsule PO 250 mg DAILY PRN Administration Constipation Haloperidol 1 mg 01/22/22 09:00 01/23/22 09:14 Haloperidol 1 Mg Tablet PO 1 mg DAILY MARY Administration Magnesium Oxide 400 mg 12/05/21 09:00 01/23/22 09:14 Magnesium Oxide 400 Mg Tablet PO 400 mg DAILY MARY Administration Multivitamins 1 tab 12/05/21 09:00 01/23/22 09:14 Multivitamin Tablet PO 1 tab DAILY MARY Administration Nicotine 1 patch 01/03/22 09:00 01/23/22 09:14 Nicotine 7 Mg Patch TOP 1 patch DAILY MARY Administration Olanzapine 5 mg 12/07/21 21:00 01/22/22 20:57 Olanzapine Odt 5 Mg Tablet TL 5 mg HS MARY Administration Polyethylene Glycol 17 gm 12/09/21 14:00 01/23/22 09:14 Polyethylene Glycol 3350 17 Gm Packet PO Not Given DAILY MARY Quetiapine Fumarate 50 mg 12/10/21 21:00 01/22/22 20:57 Quetiapine 25 Mg Tablet PO 50 mg QPM MARY Administration Senna 8.6 - 17.2 mg 12/22/21 07:23 01/10/22 08:12 Senna 8.6 Mg Tablet PO 8.6 mg DAILY PRN Administration Constipation Thiamine HCl 100 mg 12/04/21 09:00 01/23/22 09:14 Thiamine 100 Mg Tablet PO 100 mg DAILY MARY Administration - Lab Result Fish Bone Diagrams: 12/12/21 08:07 12/12/21 08:07 - Additional Planning My Orders: My Active Orders 01/22/22 09:00 haloperidoL [Haldol] 1 mg PO DAILY Subjective - Subjective Patient Reports: Resting Comfortably Objective Vital Signs: Vital Signs - 24 hr 01/23/22 08:42 Temperature 36.4 C L Heart Rate [ 93 Brachial] Respiratory 16 Rate Blood Pressure 111/71 [Right Brachial artery] O2 Saturation 96 Oxygen O2 Source Room air I&O (Last 24 Hrs): Intake and Output Totals x24h 01/21/22 01/22/22 01/23/22 23:59 23:59 23:59 Intake Total 2236 2670 1080 Balance 2236 2670 1080 General: Alert, Cooperative, No acute distress HEENT: Atraumatic Neck: Supple Lymphatic: no adenopathy Neuro: Alert, Non Focal Cardiovascular: Regular rate, Normal S1, Normal S2 Respiratory: Chest non-tender, No respiratory distress Abdomen: Normal bowel sounds, Soft Extremities: Normal pulses - Results Results: Laboratory Results WBC 3.4 x10^3/uL (4.8-10.8) L 12/12/21 08:07 RBC 4.17 10^6/uL (4.70-6.10) L 12/12/21 08:07 Hgb 13.2 g/dL (14.0-18.0) L 12/12/21 08:07 Hct 40.3 % (42.0-52.0) L 12/12/21 08:07 MCV 96.6 fL (80.0-94.0) H 12/12/21 08:07 MCH 31.7 pg (27.0-31.0) H 12/12/21 08:07 MCHC 32.8 g/dL (32.0-36.0) 12/12/21 08:07 RDW 13.7 % (12.0-15.0) 12/12/21 08:07 Plt Count 146 10^3/uL (130-450) 12/12/21 08:07 MPV 12.8 fL (7.4-11.4) H 12/12/21 08:07 Neut # (Auto) 1.5 10^3/uL (1.5-6.6) 12/12/21 08:07 Lymph # (Auto) 1.4 10^3/uL (1.5-3.5) L 12/12/21 08:07 [place] # (Auto) 0.4 10^3/uL (0.0-1.0) 12/12/21 08:07 Eos # (Auto) 0.1 10^3/uL (0.0-0.7) 12/12/21 08:07 Baso # (Auto) 0.1 10^3/uL (0.0-0.1) 12/12/21 08:07 Absolute Nucleated RBC 0.00 x10^3/uL 12/12/21 08:07 Nucleated RBC % 0.0 /100WBC 12/12/21 08:07 PT 15.1 secs (9.9-12.6) H 12/04/21 23:33 INR 1.4 (0.8-1.2) H 12/04/21 23:33 APTT 24.8 secs (24.9-33.3) L 12/03/21 18:20 Sodium 135 mmol/L (135-145) 12/12/21 08:07 Potassium 3.8 mmol/L (3.5-5.0) 12/12/21 08:07 Chloride 101 mmol/L (101-111) 12/12/21 08:07 Carbon Dioxide 24 mmol/L (21-32) 12/12/21 08:07 Anion Gap 10.0 (6-13) 12/12/21 08:07 BUN 19 mg/dL (6-20) 12/12/21 08:07 Creatinine 0.7 mg/dL (0.6-1.2) 12/12/21 08:07 Estimated GFR (MDRD) 114 (>89) 12/12/21 08:07 Glucose 121 mg/dL (70-100) H 12/12/21 08:07 Calcium 8.7 mg/dL (8.5-10.3) 12/12/21 08:07 Phosphorus 3.6 mg/dL (2.5-4.6) 12/06/21 07:04 Magnesium 2.0 mg/dL (1.7-2.8) 12/06/21 07:04 Total Bilirubin 0.5 mg/dL (0.2-1.0) 12/12/21 08:07 Direct Bilirubin < 0.1 mg/dL (0.1-0.5) L 12/09/21 07:55 AST 149 IU/L (10-42) H 12/12/21 08:07 ALT 254 IU/L (10-60) H 12/12/21 08:07 Alkaline Phosphatase 80 IU/L (42-121) 12/12/21 08:07 Ammonia 12.5 umol/L (7-35) 12/08/21 07:54 Total Protein 7.1 g/dL (6.7-8.2) 12/12/21 08:07 Albumin 3.7 g/dL (3.2-5.5) 12/12/21 08:07 Globulin 3.4 g/dL (2.1-4.2) 12/12/21 08:07 Albumin/Globulin Ratio 1.1 (1.0-2.2) 12/12/21 08:07 Lipase 28 U/L (22-51) 12/06/21 07:04 Whole Bld Vitamin B1 TNP 12/04/21 16:52 TSH 1.25 uIU/mL (0.34-5.60) 12/03/21 18:20 Urine Color YELLOW 12/03/21 18:26 Urine Clarity CLEAR (CLEAR) 12/03/21 18:26 Urine pH 6.5 PH (5.0-7.5) 12/03/21 18:26 Ur Specific [place] 1.020 (1.002-1.030) 12/03/21 18:26 Urine Protein NEGATIVE mg/dL (NEGATIVE) 12/03/21 18:26 Urine Glucose (UA) NEGATIVE mg/dL (NEGATIVE) 12/03/21 18:26 Urine Ketones NEGATIVE mg/dL (NEGATIVE) 12/03/21 18:26 Urine Occult Blood NEGATIVE (NEGATIVE) 12/03/21 18: Urine Nitrite NEGATIVE (NEGATIVE) 12/03/21 18: Urine Bilirubin NEGATIVE (NEGATIVE) 12/03/21 18:26 Urine Urobilinogen 0.2 (NORMAL) E.U./dL (NORMAL) 12/03/21 18:26 Ur Leukocyte Esterase NEGATIVE (NEGATIVE) 12/03/21 18:26 Ur Microscopic Review NOT INDICATED 12/03/21 18:26 Urine Culture Comments NOT INDICATED 12/03/21 18:26 Nasal Adenovirus (PCR) NOT DETECTED 12/20/21 19:10 Nasal B. parapertussis DNA (PCR) NOT DETECTED 12/20/21 19:10 Nasal Coronavir 229E PCR NOT DETECTED 12/20/21 19:10 Nasal Coronavir HKU1 PCR NOT DETECTED 12/20/21 19:10 Nasal Coronavir NL63 PCR NOT DETECTED 12/20/21 19:10 Nasal Coronavir OC43 PCR NOT DETECTED 12/20/21 19:10 Nasal Enterovir/Rhinovir PCR NOT DETECTED 12/20/21 19:10 Nasal Influenza B PCR NOT DETECTED 12/20/21 19:10 Nasal Influenza A PCR NOT DETECTED 12/20/21 19:10 Nasal Parainfluen 1 PCR NOT DETECTED 12/20/21 19:10 Nasal Parainfluen 2 PCR NOT DETECTED 12/20/21 19:10 Nasal Parainfluen 3 PCR NOT DETECTED 12/20/21 19:10 Nasal Parainfluen 4 PCR NOT DETECTED 12/20/21 19:10 Nasal RSV (PCR) NOT DETECTED 12/20/21 19:10 Nasal B.pertussis DNA PCR NOT DETECTED 12/20/21 19:10 Nasal C.pneumoniae (PCR) NOT DETECTED 12/20/21 19:10 Juan Daniel Human Metapneumo PCR NOT DETECTED 12/20/21 19:10 Nasal M.pneumoniae (PCR) NOT DETECTED 12/20/21 19:10 Nasal SARS-CoV-2 (PCR) DETECTED A 12/20/21 19:10 Salicylates < 6.0 mg/dL 12/03/21 18:20 Urine Opiates Screen NEGATIVE (NEGATIVE) 12/03/21 18:26 Ur Oxycodone Screen NEGATIVE (NEGATIVE) 12/03/21 18: Urine Methadone Screen NEGATIVE (NEGATIVE) 12/03/21 18:26 Ur Propoxyphene Screen NEGATIVE (NEGATIVE) 12/03/21 18:26 Acetaminophen < 10 ug/mL (10-30) L 12/03/21 18:20 Ur Barbiturates Screen NEGATIVE (NEGATIVE) 12/03/21 18:26 Ur Tricyclics Screen NEGATIVE (NEGATIVE) 12/03/21 18:26 Ur Phencyclidine Scrn NEGATIVE (NEGATIVE) 12/03/21 18:26 Ur Amphetamine Screen NEGATIVE (NEGATIVE) 12/03/21 18:26 U Methamphetamines Scrn NEGATIVE (NEGATIVE) 12/03/21 18:26 U Benzodiazepines Scrn POSITIVE (NEGATIVE) H 12/03/21 18:26 Urine Cocaine Screen NEGATIVE (NEGATIVE) 12/03/21 18:26 U Cannabinoids Screen NEGATIVE (NEGATIVE) 12/03/21 18:26 Ethyl Alcohol < 5.0 mg/dL 12/03/21 18:20 Sepsis Event Note (H) - Evaluation Current Stage of Sepsis: Ruled out ABX Reporting Has patient been on IV antibiotics over the past 48 hours?: No Current Medications - Current Medications Current Medications: Active Medications Docusate Sodium (Docusate Sodium 250 Mg Capsule) 250 - 500 mg PO DAILY PRN PRN Reason: Constipation Last Admin: 01/10/22 08:12 Dose: 250 mg Haloperidol (Haloperidol 1 Mg Tablet) 1 mg PO DAILY [facility] Last Admin: 01/23/22 09:14 Dose: 1 mg Ibuprofen (Ibuprofen 400 Mg Tablet) 400 mg PO Q6HR PRN PRN Reason: Pain or Fever > 38C (100.4F) Magnesium Oxide (Magnesium Oxide 400 Mg Tablet) 400 mg PO DAILY [facility] Last Admin: 01/23/22 09:14 Dose: 400 mg Multivitamins (Multivitamin Tablet) 1 tab PO DAILY [facility] Last Admin: 01/23/22 09:14 Dose: 1 tab Nicotine (Nicotine 7 Mg Patch) 1 patch TOP DAILY [facility] Last Admin: 01/23/22 09:14 Dose: 1 patch Olanzapine (Olanzapine Odt 5 Mg Tablet) 5 mg TL HS [facility] Last Admin: 01/22/22 20:57 Dose: 5 mg Polyethylene Glycol (Polyethylene Glycol 3350 17 Gm Packet) 17 gm PO DAILY [facility] Last Admin: 01/23/22 09:14 Dose: Not Given Quetiapine Fumarate (Quetiapine 25 Mg Tablet) 50 mg PO QPM [facility] Last Admin: 01/22/22 20:57 Dose: 50 mg Senna (Senna 8.6 Mg Tablet) 8.6 - 17.2 mg PO DAILY PRN PRN Reason: Constipation Last Admin: 01/10/22 08:12 Dose: 8.6 mg Thiamine HCl (Thiamine 100 Mg Tablet) 100 mg PO DAILY [facility] Last Admin: 01/23/22 09:14 Dose: 100 mg Magnesium Oxide [Mag Ox] 400 mg PO DAILY 12/01/21 Multivitamin [Theragran] 1 each PO DAILY 12/01/21
[2022-01-23] MEDS: QUEtiapine 25 MG TABLET PO SCH (20:28)
[2022-01-24] MEDS: MULTIVITAMIN TABLET PO SCH (07:54)
[2022-01-24] MEDS: haloperidoL 1 MG TABLET PO SCH (07:55)
[2022-01-24] MEDS: MAGNESIUM OXIDE 400 MG TABLET PO SCH (07:55)
[2022-01-24] MEDS: polyethylene glycoL 3350 17 GM PACKET PO SCH (07:55)
[2022-01-24] MEDS: NICOTINE 7 MG PATCH TOP SCH (07:56)
[2022-01-24] MEDS: THIAMINE 100 MG TABLET PO SCH (07:56)
--- NOTE | 2022-01-24 08:26 | PROVIDER PROGRESS NOTE ---
Subjective - Prog Note Date Prog Note Date: 01/24/22 - Subjective Subjective: He is doing well. He has no complaints. He is trying to improve his memory. Current Medications - Current Medications Current Medications: Active Medications Docusate Sodium (Docusate Sodium 250 Mg Capsule) 250 - 500 mg PO DAILY PRN PRN Reason: Constipation Last Admin: 01/10/22 08:12 Dose: 250 mg Haloperidol (Haloperidol 1 Mg Tablet) 0.5 mg PO DAILY [facility] Ibuprofen (Ibuprofen 400 Mg Tablet) 400 mg PO Q6HR PRN PRN Reason: Pain or Fever > 38C (100.4F) Magnesium Oxide (Magnesium Oxide 400 Mg Tablet) 400 mg PO DAILY [facility] Last Admin: 01/24/22 07:55 Dose: 400 mg Multivitamins (Multivitamin Tablet) 1 tab PO DAILY [facility] Last Admin: 01/24/22 07:54 Dose: 1 tab Nicotine (Nicotine 7 Mg Patch) 1 patch TOP DAILY [facility] Last Admin: 01/24/22 07:56 Dose: 1 patch Olanzapine (Olanzapine Odt 5 Mg Tablet) 2.5 mg TL HS [facility] Polyethylene Glycol (Polyethylene Glycol 3350 17 Gm Packet) 17 gm PO DAILY [facility] Last Admin: 01/24/22 07:55 Dose: 17 gm Quetiapine Fumarate (Quetiapine 25 Mg Tablet) 50 mg PO QPM [facility] Last Admin: 01/23/22 20:28 Dose: 50 mg Senna (Senna 8.6 Mg Tablet) 8.6 - 17.2 mg PO DAILY PRN PRN Reason: Constipation Last Admin: 01/10/22 08:12 Dose: 8.6 mg Thiamine HCl (Thiamine 100 Mg Tablet) 100 mg PO DAILY [facility] Last Admin: 01/24/22 07:56 Dose: 100 mg Magnesium Oxide [Mag Ox] 400 mg PO DAILY 12/01/21 Multivitamin [Theragran] 1 each PO DAILY 12/01/21 Objective - Vital Signs/Intake & Output Reviewed Vital Signs: Yes Vital Signs: Vital Signs x48h Temp Pulse Pulse Resp BP BP Pulse Ox 01/24/22 07:57 36.2 C L 82 18 120/80 96 01/24/22 07:05 36.3 C L 84 16 120/81 H 94 Intake & Output: Intake & Output 01/21/22 01/22/22 01/23/22 01/24/22 23:59 23:59 23:59 23:59 Intake Total 6 2670 2300 240 Balance 2236 2670 2300 240 - Objective General Appearance: positive: No acute distress, Alert Eyes Bilateral: positive: Normal inspection, Conjunctivae nml Respiratory: positive: No respiratory distress Neurologic/Psychiatric: negative: Disoriented to person, Disoriented to place - Lab Results Fish Bones: 12/12/21 08:07 12/12/21 08:07 Sepsis Event Note (H) - Evaluation Current Stage of Sepsis: Ruled out Assessment/Plan - Problem List (1) Wernicke-Korsakoff syndrome (alcoholic) Impression: We are concerned that this is the cause of his cognitive impairment. He was evaluated by outpatient therapy yesterday and he scores 19/30 on the SLUMS examination which is an improvement. We are continuing thiamine. We will look to taper him off of the Zyprexa and Haldol as he has been quite cooperative and I am hoping that his mentation may continue to improve as we wean him off of the antipsychotics. He has made significant improvement in his memory since hospitalization. He is still unfortunately unable to care for himself and we are still working on disposition. Appreciate social work input. (2) COVID-19 Impression: This is now resolved. He is off of contact precautions. (3) Homeless single person Impression: Continuing to work on disposition we appreciate social work input. (4) Alcohol abuse Impression: He initially went through alcohol withdrawal but this is now resolved. We are continuing thiamine supplementation daily.
[2022-01-24] MEDS: OLANZapine ODT 5 MG TABLET TL SCH (20:10)
[2022-01-24] MEDS: QUEtiapine 25 MG TABLET PO SCH (20:10)
--- NOTE | 2022-01-25 07:33 | PROVIDER PROGRESS NOTE ---
Subjective - Prog Note Date Prog Note Date: 01/25/22 - Subjective Subjective: Continues to do well. Has no complaints. His birthday is coming up and he is excited to celebrate that. Current Medications - Current Medications Current Medications: Active Medications Docusate Sodium (Docusate Sodium 250 Mg Capsule) 250 - 500 mg PO DAILY PRN PRN Reason: Constipation Last Admin: 01/10/22 08:12 Dose: 250 mg Haloperidol (Haloperidol 1 Mg Tablet) 0.5 mg PO DAILY [facility] Last Admin: 01/25/22 08:13 Dose: 0.5 mg Ibuprofen (Ibuprofen 400 Mg Tablet) 400 mg PO Q6HR PRN PRN Reason: Pain or Fever > 38C (100.4F) Magnesium Oxide (Magnesium Oxide 400 Mg Tablet) 400 mg PO DAILY [facility] Last Admin: 01/25/22 08:13 Dose: 400 mg Multivitamins (Multivitamin Tablet) 1 tab PO DAILY [facility] Last Admin: 01/25/22 08:13 Dose: 1 tab Nicotine (Nicotine 7 Mg Patch) 1 patch TOP DAILY [facility] Last Admin: 01/25/22 08:13 Dose: 1 patch Olanzapine (Olanzapine Odt 5 Mg Tablet) 2.5 mg TL HS [facility] Last Admin: 01/24/22 20:10 Dose: 2.5 mg Polyethylene Glycol (Polyethylene Glycol 3350 17 Gm Packet) 17 gm PO DAILY [facility] Last Admin: 01/25/22 08:14 Dose: 17 gm Quetiapine Fumarate (Quetiapine 25 Mg Tablet) 50 mg PO QPM [facility] Last Admin: 01/24/22 20:10 Dose: 50 mg Senna (Senna 8.6 Mg Tablet) 8.6 - 17.2 mg PO DAILY PRN PRN Reason: Constipation Last Admin: 01/10/22 08:12 Dose: 8.6 mg Thiamine HCl (Thiamine 100 Mg Tablet) 100 mg PO DAILY [facility] Last Admin: 01/25/22 08:14 Dose: 100 mg Magnesium Oxide [Mag Ox] 400 mg PO DAILY 12/01/21 Multivitamin [Theragran] 1 each PO DAILY 12/01/21 Objective - Vital Signs/Intake & Output Reviewed Vital Signs: Yes Intake & Output: Intake & Output 01/22/22 01/23/22 01/24/22 01/25/22 23:59 23:59 23:59 23:59 Intake Total 2670 2300 2480 480 Balance 2670 2300 2480 480 - Objective General Appearance: positive: No acute distress, Alert Eyes Bilateral: positive: Normal inspection, Conjunctivae nml ENT: positive: ENT inspection nml Respiratory: positive: No respiratory distress Skin: positive: Warm, Dry Neurologic/Psychiatric: positive: Motor nml. negative: Disoriented to person, Disoriented to place, Disoriented to time, Slurred/abnml speech - Lab Results Fish Bones: 12/12/21 08:07 12/12/21 08:07 Sepsis Event Note (H) - Evaluation Current Stage of Sepsis: Ruled out Assessment/Plan - Problem List (1) Wernicke-Korsakoff syndrome (alcoholic) Impression: He has made significant progress from a cognitive standpoint since admission. We have worked on getting him guardian but given he has made progress, I am hopeful that we may be able to get him POA to help with medical and financial decisions for the patient rather than go through guardianship. I wonder if the Haldol and Zyprexa may be contributing to some cognitive impairment and we had begun to taper these down. He has been alert and oriented but still does lack insight overall and I am concerned he is unable to care for himself but with assistance from family he may be able to live with caregivers or his family. Appreciate social work input regarding disposition. (2) COVID-19 Impression: This is now resolved. He is off of contact precautions. (3) Homeless single person Impression: Continuing to work on disposition. We appreciate social work input. (4) Alcohol abuse Impression: He initially went through alcohol withdrawal but this is now resolved. We are continuing thiamine supplementation daily.
[2022-01-25] MEDS: MAGNESIUM OXIDE 400 MG TABLET PO SCH (08:13)
[2022-01-25] MEDS: NICOTINE 7 MG PATCH TOP SCH (08:13)
[2022-01-25] MEDS: haloperidoL 1 MG TABLET PO SCH (08:13)
[2022-01-25] MEDS: MULTIVITAMIN TABLET PO SCH (08:13)
[2022-01-25] MEDS: THIAMINE 100 MG TABLET PO SCH (08:14)
[2022-01-25] MEDS: polyethylene glycoL 3350 17 GM PACKET PO SCH (08:14)
[2022-01-25] MEDS: QUEtiapine 25 MG TABLET PO SCH (20:23)
[2022-01-25] MEDS: OLANZapine ODT 5 MG TABLET TL SCH (20:23)
[2022-01-26 05:11] LABS: BASOPHILS # (AUTO) 0.1 10^3/uL (0.0-0.1); BASOPHILS % (AUTO) 0.9 %; EOSINOPHILS # (AUTO) 0.2 10^3/uL (0.0-0.7); EOSINOPHILS % (AUTO) 4.5 %; HCT - HEMATOCRIT 41.1 % (42.0-52.0); HGB - HEMOGLOBIN 13.6 g/dL (14.0-18.0); LYMPHOCYTES # (AUTO) 1.8 10^3/uL (1.5-3.5); LYMPHOCYTES % (AUTO) 34.3 %; MEAN CORPUSCULAR HGB CONC 33.1 g/dL (32.0-36.0); MEAN CORPUSCULAR VOLUME 93.6 fL (80.0-94.0); MEAN PLATELET VOLUME 12.8 fL (7.4-11.4); MONOCYTES # (AUTO) 0.6 10^3/uL (0.0-1.0); MONOCYTES % (AUTO) 12.1 %; NEUTROPHILS # (AUTO) 2.5 10^3/uL (1.5-6.6); PLT - PLATELET COUNT 131 10^3/uL (130-450); RED BLOOD COUNT 4.39 10^6/uL (4.70-6.10); RED CELL DISTRIBUTION WIDTH 13.2 % (12.0-15.0); WHITE BLOOD COUNT 5.3 x10^3/uL (4.8-10.8)
[2022-01-26 05:28] LABS: ALBUMIN 3.6 g/dL (3.2-5.5); BILIRUBIN,DIRECT 0.1 mg/dL (0.1-0.5); BILIRUBIN,TOTAL 0.5 mg/dL (0.2-1.0); CREATININE 0.6 mg/dL (0.6-1.2); TOTAL PROTEIN 6.4 g/dL (6.7-8.2)
[2022-01-26 05:49] LABS: FOLATE 20.49 ng/mL (5.90 - >24.8)
--- NOTE | 2022-01-26 07:42 | PROVIDER PROGRESS NOTE ---
Subjective - Prog Note Date Prog Note Date: 01/26/22 - Subjective Subjective: He is doing well. No complaints. Current Medications - Current Medications Current Medications: Active Medications Docusate Sodium (Docusate Sodium 250 Mg Capsule) 250 - 500 mg PO DAILY PRN PRN Reason: Constipation Last Admin: 01/10/22 08:12 Dose: 250 mg Haloperidol (Haloperidol 1 Mg Tablet) 0.5 mg PO DAILY [facility] Last Admin: 01/26/22 07:51 Dose: 0.5 mg Ibuprofen (Ibuprofen 400 Mg Tablet) 400 mg PO Q6HR PRN PRN Reason: Pain or Fever > 38C (100.4F) Magnesium Oxide (Magnesium Oxide 400 Mg Tablet) 400 mg PO DAILY [facility] Last Admin: 01/26/22 07:51 Dose: 400 mg Multivitamins (Multivitamin Tablet) 1 tab PO DAILY [facility] Last Admin: 01/26/22 07:51 Dose: 1 tab Nicotine (Nicotine 7 Mg Patch) 1 patch TOP DAILY [facility] Last Admin: 01/26/22 07:52 Dose: 1 patch Olanzapine (Olanzapine Odt 5 Mg Tablet) 2.5 mg TL HS [facility] Last Admin: 01/25/22 20:23 Dose: 2.5 mg Polyethylene Glycol (Polyethylene Glycol 3350 17 Gm Packet) 17 gm PO DAILY [facility] Last Admin: 01/26/22 07:52 Dose: Not Given Quetiapine Fumarate (Quetiapine 25 Mg Tablet) 50 mg PO QPM [facility] Last Admin: 01/25/22 20:23 Dose: 50 mg Senna (Senna 8.6 Mg Tablet) 8.6 - 17.2 mg PO DAILY PRN PRN Reason: Constipation Last Admin: 01/10/22 08:12 Dose: 8.6 mg Thiamine HCl (Thiamine 100 Mg Tablet) 100 mg PO DAILY [facility] Last Admin: 01/26/22 07:52 Dose: 100 mg Magnesium Oxide [Mag Ox] 400 mg PO DAILY 12/01/21 Multivitamin [Theragran] 1 each PO DAILY 12/01/21 Objective - Vital Signs/Intake & Output Reviewed Vital Signs: Yes Intake & Output: Intake & Output 01/23/22 01/24/22 01/25/22 01/26/22 23:59 23:59 23:59 23:59 Intake Total 2300 2480 1870 0 Balance 2300 2480 1870 0 - Objective General Appearance: positive: No acute distress, Alert Respiratory: positive: No respiratory distress Neurologic/Psychiatric: negative: Disoriented to person, Disoriented to place - Lab Results Fish Bones: 01/26/22 04:20 01/26/22 04:20 Other Labs: Lab Results x24hrs 01/26/22 01/26/22 01/26/22 Range/Units 04:20 04:20 04:20 WBC 5.3 (4.8-10.8) x10^3/uL RBC 4.39 L (4.70-6.10) 10^6/uL Hgb 13.6 L (14.0-18.0) g/dL Hct 41.1 L (42.0-52.0) % MCV 93.6 (80.0-94.0) fL MCH 31.0 (27.0-31.0) pg MCHC 33.1 (32.0-36.0) g/dL RDW 13.2 (12.0-15.0) % Plt Count 131 (130-450) 10^3/uL MPV 12.8 H (7.4-11.4) fL Neut # (Auto) 2.5 (1.5-6.6) 10^3/uL Lymph # (Auto) 1.8 (1.5-3.5) 10^3/uL [place] # (Auto) 0.6 (0.0-1.0) 10^3/uL Eos # (Auto) 0.2 (0.0-0.7) 10^3/uL Baso # (Auto) 0.1 (0.0-0.1) 10^3/uL Absolute Nucleated RBC 0.00 x10^3/uL Nucleated RBC % 0.0 /100WBC Sodium 139 (135-145) mmol/L Potassium 4.0 (3.5-5.0) mmol/L Chloride 104 (101-111) mmol/L Carbon Dioxide 25 (21-32) mmol/L Anion Gap 10.0 (6-13) BUN 17 (6-20) mg/dL Creatinine 0.6 (0.6-1.2) mg/dL Estimated GFR (MDRD) 137 (>89) Glucose 154 H (70-100) mg/dL Calcium 9.0 (8.5-10.3) mg/dL Total Bilirubin 0.5 (0.2-1.0) mg/dL Direct Bilirubin 0.1 (0.1-0.5) mg/dL AST 77 H (10-42) IU/L ALT 104 H (10-60) IU/L Alkaline Phosphatase 58 (42-121) IU/L Total Protein 6.4 L (6.7-8.2) g/dL Albumin 3.6 (3.2-5.5) g/dL Globulin 2.8 (2.1-4.2) g/dL Vitamin B12 317 (180-914) pg/mL Folate 20.49 (5.90 - >24.8) ng/mL Sepsis Event Note (H) - Evaluation Current Stage of Sepsis: Ruled out Assessment/Plan - Problem List (1) Wernicke-Korsakoff syndrome (alcoholic) Impression: He has made progress over the past few weeks but still does not have the insight to make his own medical decisions. We have begun to taper off the Haldol and Zyprexa in hopes that this may help with his cognition. We will consult telepsych once again to get their thoughts regarding capacity and discontinuation of medications. We are working closely with social work regarding disposition. We are looking to obtain guardianship although he make significant improvement in his condition over next. Time we may be able to consider his ability sign POA paperwork and have him go home with the help of his family. (2) COVID-19 Impression: This is now resolved. He is off of contact precautions. (3) Homeless single person Impression: Continuing to work on disposition. We appreciate social work input. (4) Alcohol abuse Impression: He initially went through alcohol withdrawal but this is now resolved. We are continuing thiamine supplementation daily.
[2022-01-26] MEDS: MAGNESIUM OXIDE 400 MG TABLET PO SCH (07:51)
[2022-01-26] MEDS: haloperidoL 1 MG TABLET PO SCH (07:51)
[2022-01-26] MEDS: MULTIVITAMIN TABLET PO SCH (07:51)
[2022-01-26] MEDS: polyethylene glycoL 3350 17 GM PACKET PO SCH (07:52)
[2022-01-26] MEDS: THIAMINE 100 MG TABLET PO SCH (07:52)
[2022-01-26] MEDS: NICOTINE 7 MG PATCH TOP SCH (07:52)
[2022-01-26 13:15] LABS: ESTIMATED AVERAGE GLUCOSE 111 mg/dL (70-100); HEMOGLOBIN A1c% 5.5 % (4.27-6.07)
[2022-01-26] MEDS: OLANZapine ODT 5 MG TABLET TL SCH (20:51)
[2022-01-26] MEDS: QUEtiapine 25 MG TABLET PO SCH (20:51)
--- NOTE | 2022-01-27 09:24 | TELEPSYCH PHYS NOTE ---
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 Patient was seen by psychiatry on 12/08 for capacity evaluation and found to not have medical decision making capacity due to confusion and disorientation. Guardianship has been pursued and daughter is his surrogate decision maker. He has been managed with Haldol, Zyprexa and Seroquel. Primary team has been tapering Zyprexa and Haldol. Psychiatry re-consulted today for capacity evaluation, specifically regarding discharge planning, and med rec. They report patients mentation has significantly improved. The current recommendation appears to be discharge home with family. On interview, he is A&Ox4. He reports he was admitted secondary to alcohol and COVID. He acknowledges he has had issues with his short-term memory secondary to alcohol use. I was able to perform parts of MMSE with him. Orientation, registration and language were intact. He was noted to have difficulty with attention, calculation, and recall. He, however, could recall objects with cues. When asked about discharge planning. With assistance of white board in room, he tells me that guardianship and placement are being worked on. He however does not think he needs a guardian to make his decisions. He feels he can care for himself and state she has been working on memorizing things. He states he is a lot better than when he first presented to hospital. He also noted that he plans to quit drinking alcohol and wants to pursue AA and requests other resources to help him abstain from alcohol. He acknowledges/expressed understanding that his cognition could worsen with continued alcohol use. He denies any significant mood changes, SI and HI. CAPACITY ASSESSMENT: -Can the patient communicate make and communicate a choice? Yes -Can the patient understand the risks, benefits and alternatives? Yes -Can the patient make a logical, rational choice? Yes -Is the choice that the patient makes most c/w their values? Yes -Is there an impending or emergent risk to the patient? No -Is there a surrogate decision maker available? Yes I attempted to call his daughter Solitario for collateral at [phone] but was unable to reach. Psych Meds: Haldol 0.5mg daily Zyprexa 2.5mg QHS Seroquel 50mg QHs Mental Status Exam: Appearance and attire: decently groomed, appears stated age Attitude and behavior: cooperative and calm Speech: normal volume, rate and tone Mood: euthymic Affect: mood congruent Association and thought processes: organized Thought content: no SI, no HI Perception: no AVH, no evidence of delusions Sensorium, memory, and orientation: A&Ox4, immediate recall intact, trouble with delayed recall Intellectual functioning: average Insight and judgment: fair Impression/Risk Assessment: 61 y.o M with psychiatric history of alcohol use disorder who was admitted on 12/04 for the management of COVID and alcohol withdrawal, found to have Wernickes Korsakoff. Psychiatry re-consulted today for capacity evaluation, specifically regarding discharge planning, and med rec. He currently has capacity to make this specific decision. He appears to understand his illness and its prognosis. He seems to recognize how his welfare is affected by the outcome of his decision. He can discuss his decision making in a realistic manner and he is able to consistently specify a choice. Please realize that decision-making capacity is specific to a particular question or treatment. It does not generalize to include other healthcare decisions. Additionally, capacity does not refer to competency, which is strictly a legal term. Diagnosis: Alcohol use disorder Wernickes korsakoff Treatment Recommendations: Psychiatric Clearance: Yes. He does not need psychiatric hospitalization Pharmacological Discontinue Haldol and Zyprexa. Continue Seroquel 50mg QHs. Can decrease to 25mg on 01/27 days then discontinue after 01/29 Observation level continue current level of observation Therapy: Supportive Level of Care: inpatient Plan discussed with primary team. Anali Wills MD Psychiatrist List names and roles of persons who participated in consult: mir- Nurse, Dr. Wills
--- NOTE | 2022-01-27 12:03 | PROVIDER PROGRESS NOTE ---
Assessment/Plan - Problem List (1) Metabolic encephalopathy Assessment/Plan: pt had tele psychiatrist consult on today morning. Per consultation, pt's meds haldol, and Zyprexa on the hold, and seroquel is reduced to 25mg until 324 then off. tele psychiatrist also consulted for pt's capacity to make his decision. pt is alert and oriented plus 4. pt told me he hope to move to live with his any one of his five sisters for a while. he report any his sisters accepted him. he hope to continue get help from hospital for his alcohol quitting such as AA information. Then he talked about pt's plan to move to [facility]. he state he had $4000+1000 money to move to [facility] to live. he also report his d damianhter and grandchildren saw him on yesterday at hospital. plan: will followup with tele psych recommendation, hold of Haldol and Zyprexa, reduce to 25 mg of Seroquel to 01/29 then hold. continue consult with social staff worker for placement. (2) COVID-19 Impression: resolved. He is off of contact precautions. (3) Homeless single person Impression: Continuing to work on disposition. appreciate social work input for pt (4) Alcohol abuse Impression: He initially went through alcohol withdrawal but this is now resolved. We are continuing thiamine supplementation daily. consult with social staff worker to help for pt's alcohol quitting. - Current Meds Current Meds: Current Medications Generic Name Dose Route Start Last Admin Trade Name Debby PRN Reason Stop Dose Admin Docusate Sodium 250 - 500 mg 12/22/21 07:23 01/10/22 08:12 Docusate Sodium 250 Mg Capsule PO 250 mg DAILY PRN Administration Constipation Magnesium Oxide 400 mg 12/05/21 09:00 01/26/22 07:51 Magnesium Oxide 400 Mg Tablet PO 400 mg DAILY MARY Administration Multivitamins 1 tab 12/05/21 09:00 01/26/22 07:51 Multivitamin Tablet PO 1 tab DAILY MARY Administration Nicotine 1 patch 01/03/22 09:00 01/26/22 07:52 Nicotine 7 Mg Patch TOP 1 patch DAILY MARY Administration Polyethylene Glycol 17 gm 12/09/21 14:00 01/26/22 07:52 Polyethylene Glycol 3350 17 Gm Packet PO Not Given DAILY MARY Senna 8.6 - 17.2 mg 12/22/21 07:23 01/10/22 08:12 Senna 8.6 Mg Tablet PO 8.6 mg DAILY PRN Administration Constipation Thiamine HCl 100 mg 12/04/21 09:00 01/26/22 07:52 Thiamine 100 Mg Tablet PO 100 mg DAILY MARY Administration - Lab Result Fish Bone Diagrams: 01/26/22 04:20 01/26/22 04:20 - Additional Planning My Orders: My Active Orders 01/27/22 21:00 OLANZapine ODT [ZyPREXA ODT] 2.5 mg TL HS ONE QUEtiapine [SEROquel] 25 mg PO QPM Subjective - Subjective Patient Reports: Resting Comfortably, No Complaints Objective Vital Signs: Vital Signs - 24 hr 01/27/22 08:54 Temperature 36.4 C L Heart Rate [ 95 Brachial] Respiratory 16 Rate Blood Pressure 135/79 H [Right Brachial artery] O2 Saturation 98 Oxygen O2 Source Room air I&O (Last 24 Hrs): Intake and Output Totals x24h 01/25/22 01/26/22 01/27/22 23:59 23:59 23:59 Intake Total 1869 2059 480 Balance 1869 2059 480 General: Alert, Oriented x3, Cooperative, No acute distress HEENT: Atraumatic Neck: Supple Lymphatic: no adenopathy Neuro: Alert, Non Focal, Oriented Times 3 Cardiovascular: Regular rate, Normal S1, Normal S2 Respiratory: Chest non-tender, No respiratory distress Abdomen: Normal bowel sounds, Soft, No tenderness Extremities: Normal pulses - Results Results: Laboratory Results WBC 5.3 x10^3/uL (4.8-10.8) 01/26/22 04:20 RBC 4.39 10^6/uL (4.70-6.10) L 01/26/22 04:20 Hgb 13.6 g/dL (14.0-18.0) L 01/26/22 04:20 Hct 41.1 % (42.0-52.0) L 01/26/22 04:20 MCV 93.6 fL (80.0-94.0) 01/26/22 04:20 MCH 31.0 pg (27.0-31.0) 01/26/22 04:20 MCHC 33.1 g/dL (32.0-36.0) 01/26/22 04:20 RDW 13.2 % (12.0-15.0) 01/26/22 04:20 Plt Count 131 10^3/uL (130-450) 01/26/22 04:20 MPV 12.8 fL (7.4-11.4) H 01/26/22 04:20 Neut # (Auto) 2.5 10^3/uL (1.5-6.6) 01/26/22 04:20 Lymph # (Auto) 1.8 10^3/uL (1.5-3.5) 01/26/22 04:20 [place] # (Auto) 0.6 10^3/uL (0.0-1.0) 01/26/22 04:20 Eos # (Auto) 0.2 10^3/uL (0.0-0.7) 01/26/22 04:20 Baso # (Auto) 0.1 10^3/uL (0.0-0.1) 01/26/22 04:20 Absolute Nucleated RBC 0.00 x10^3/uL 01/26/22 04:20 Nucleated RBC % 0.0 /100WBC 01/26/22 04:20 PT 15.1 secs (9.9-12.6) H 12/04/21 23:33 INR 1.4 (0.8-1.2) H 12/04/21 23:33 APTT 24.8 secs (24.9-33.3) L 12/03/21 18:20 Sodium 139 mmol/L (135-145) 01/26/22 04:20 Potassium 4.0 mmol/L (3.5-5.0) 01/26/22 04:20 Chloride 104 mmol/L (101-111) 01/26/22 04:20 Carbon Dioxide 25 mmol/L (21-32) 01/26/22 04:20 Anion Gap 10.0 (6-13) 01/26/22 04:20 BUN 17 mg/dL (6-20) 01/26/22 04:20 Creatinine 0.6 mg/dL (0.6-1.2) 01/26/22 04:20 Estimated GFR (MDRD) 137 (>89) 01/26/22 04:20 Glucose 154 mg/dL (70-100) H 01/26/22 04:20 Estimat Average Glucose 111 mg/dL (70-100) H 01/26/22 04:20 Hemoglobin A1c % 5.5 % (4.27-6.07) 01/26/22 04:20 Calcium 9.0 mg/dL (8.5-10.3) 01/26/22 04:20 Phosphorus 3.6 mg/dL (2.5-4.6) 12/06/21 07:04 Magnesium 2.0 mg/dL (1.7-2.8) 12/06/21 07:04 Total Bilirubin 0.5 mg/dL (0.2-1.0) 01/26/22 04:20 Direct Bilirubin 0.1 mg/dL (0.1-0.5) 01/26/22 04:20 AST 77 IU/L (10-42) H 01/26/22 04:20 ALT 104 IU/L (10-60) H 01/26/22 04:20 Alkaline Phosphatase 58 IU/L (42-121) 01/26/22 04:20 Ammonia 12.5 umol/L (7-35) 12/08/21 07:54 Total Protein 6.4 g/dL (6.7-8.2) L 01/26/22 04:20 Albumin 3.6 g/dL (3.2-5.5) 01/26/22 04:20 Globulin 2.8 g/dL (2.1-4.2) 01/26/22 04:20 Albumin/Globulin Ratio 1.1 (1.0-2.2) 12/12/21 08:07 Lipase 28 U/L (22-51) 12/06/21 07:04 Whole Bld Vitamin B1 TNP 12/04/21 16:52 Vitamin B12 317 pg/mL (180-914) 01/26/22 04:20 Folate 20.49 ng/mL (5.90 - >24.8) 01/26/22 04:20 TSH 1.25 uIU/mL (0.34-5.60) 12/03/21 18:20 Urine Color YELLOW 12/03/21 18:26 Urine Clarity CLEAR (CLEAR) 12/03/21 18:26 Urine pH 6.5 PH (5.0-7.5) 12/03/21 18:26 Ur Specific [place] 1.020 (1.002-1.030) 12/03/21 18:26 Urine Protein NEGATIVE mg/dL (NEGATIVE) 12/03/21 18: Urine Glucose (UA) NEGATIVE mg/dL (NEGATIVE) 12/03/21 18: Urine Ketones NEGATIVE mg/dL (NEGATIVE) 12/03/21 18:26 Urine Occult Blood NEGATIVE (NEGATIVE) 12/03/21 18: Urine Nitrite NEGATIVE (NEGATIVE) 12/03/21 18: Urine Bilirubin NEGATIVE (NEGATIVE) 12/03/21 18: Urine Urobilinogen 0.2 (NORMAL) E.U./dL (NORMAL) 12/03/21 18:26 Ur Leukocyte Esterase NEGATIVE (NEGATIVE) 12/03/21 18:26 Ur Microscopic Review NOT INDICATED 12/03/21 18: Urine Culture Comments NOT INDICATED 12/03/21 18:26 Nasal Adenovirus (PCR) NOT DETECTED 12/20/21 19:10 Nasal B. parapertussis DNA (PCR) NOT DETECTED 12/20/21 19:10 Nasal Coronavir 229E PCR NOT DETECTED 12/20/21 19:10 Nasal Coronavir HKU1 PCR NOT DETECTED 12/20/21 19:10 Nasal Coronavir NL63 PCR NOT DETECTED 12/20/21 19:10 Nasal Coronavir OC43 PCR NOT DETECTED 12/20/21 19:10 Nasal Enterovir/Rhinovir PCR NOT DETECTED 12/20/21 19:10 Nasal Influenza B PCR NOT DETECTED 12/20/21 19:10 Nasal Influenza A PCR NOT DETECTED 12/20/21 19:10 Nasal Parainfluen 1 PCR NOT DETECTED 12/20/21 19:10 Nasal Parainfluen 2 PCR NOT DETECTED 12/20/21 19:10 Nasal Parainfluen 3 PCR NOT DETECTED 12/20/21 19:10 Nasal Parainfluen 4 PCR NOT DETECTED 12/20/21 19:10 Nasal RSV (PCR) NOT DETECTED 12/20/21 19:10 Nasal B.pertussis DNA PCR NOT DETECTED 12/20/21 19:10 Nasal C.pneumoniae (PCR) NOT DETECTED 12/20/21 19:10 Juan Daniel Human Metapneumo PCR NOT DETECTED 12/20/21 19:10 Nasal M.pneumoniae (PCR) NOT DETECTED 12/20/21 19:10 Nasal SARS-CoV-2 (PCR) DETECTED A 12/20/21 19:10 Salicylates < 6.0 mg/dL 12/03/21 18:20 Urine Opiates Screen NEGATIVE (NEGATIVE) 12/03/21 18:26 Ur Oxycodone Screen NEGATIVE (NEGATIVE) 12/03/21 18:26 Urine Methadone Screen NEGATIVE (NEGATIVE) 12/03/21 18:26 Ur Propoxyphene Screen NEGATIVE (NEGATIVE) 12/03/21 18:26 Acetaminophen < 10 ug/mL (10-30) L 12/03/21 18:20 Ur Barbiturates Screen NEGATIVE (NEGATIVE) 12/03/21 18:26 Ur Tricyclics Screen NEGATIVE (NEGATIVE) 12/03/21 18:26 Ur Phencyclidine Scrn NEGATIVE (NEGATIVE) 12/03/21 18:26 Ur Amphetamine Screen NEGATIVE (NEGATIVE) 12/03/21 18:26 U Methamphetamines Scrn NEGATIVE (NEGATIVE) 12/03/21 18:26 U Benzodiazepines Scrn POSITIVE (NEGATIVE) H 12/03/21 18:26 Urine Cocaine Screen NEGATIVE (NEGATIVE) 12/03/21 18:26 U Cannabinoids Screen NEGATIVE (NEGATIVE) 12/03/21 18:26 Ethyl Alcohol < 5.0 mg/dL 12/03/21 18:20 Sepsis Event Note (H) - Evaluation Current Stage of Sepsis: Ruled out ABX Reporting Has patient been on IV antibiotics over the past 48 hours?: No Current Medications - Current Medications Current Medications: Active Medications Docusate Sodium (Docusate Sodium 250 Mg Capsule) 250 - 500 mg PO DAILY PRN PRN Reason: Constipation Last Admin: 01/10/22 08:12 Dose: 250 mg Ibuprofen (Ibuprofen 400 Mg Tablet) 400 mg PO Q6HR PRN PRN Reason: Pain or Fever > 38C (100.4F) Magnesium Oxide (Magnesium Oxide 400 Mg Tablet) 400 mg PO DAILY MARY Last Admin: 01/26/22 07:51 Dose: 400 mg Multivitamins (Multivitamin Tablet) 1 tab PO DAILY MARY Last Admin: 01/26/22 07:51 Dose: 1 tab Nicotine (Nicotine 7 Mg Patch) 1 patch TOP DAILY MARY Last Admin: 01/26/22 07:52 Dose: 1 patch Olanzapine (Olanzapine Odt 5 Mg Tablet) 2.5 mg TL HS ONE Stop: 01/27/22 21:01 Polyethylene Glycol (Polyethylene Glycol 3350 17 Gm Packet) 17 gm PO DAILY MARY Last Admin: 01/26/22 07:52 Dose: Not Given Quetiapine Fumarate (Quetiapine 25 Mg Tablet) 25 mg PO QPM [facility] Senna (Senna 8.6 Mg Tablet) 8.6 - 17.2 mg PO DAILY PRN PRN Reason: Constipation Last Admin: 01/10/22 08:12 Dose: 8.6 mg Thiamine HCl (Thiamine 100 Mg Tablet) 100 mg PO DAILY [facility] Last Admin: 01/26/22 07:52 Dose: 100 mg Magnesium Oxide [Mag Ox] 400 mg PO DAILY 12/01/21 Multivitamin [Theragran] 1 each PO DAILY 12/01/21
[2022-01-27] MEDS: NICOTINE 7 MG PATCH TOP SCH (13:19)
[2022-01-27] MEDS: THIAMINE 100 MG TABLET PO SCH (13:21)
[2022-01-27] MEDS: MULTIVITAMIN TABLET PO SCH (13:21)
[2022-01-27] MEDS: MAGNESIUM OXIDE 400 MG TABLET PO SCH (13:21)
[2022-01-27] MEDS: polyethylene glycoL 3350 17 GM PACKET PO SCH (13:21)
[2022-01-27] MEDS ORDERED: OLANZapine ODT 5 MG TABLET TL ONE (21:00)
[2022-01-27] MEDS: QUEtiapine 25 MG TABLET PO SCH (21:04)
[2022-01-28] MEDS: THIAMINE 100 MG TABLET PO SCH (07:46)
[2022-01-28] MEDS: NICOTINE 7 MG PATCH TOP SCH (07:46)
[2022-01-28] MEDS: MULTIVITAMIN TABLET PO SCH (07:46)
[2022-01-28] MEDS: MAGNESIUM OXIDE 400 MG TABLET PO SCH (07:46)
[2022-01-28] MEDS: polyethylene glycoL 3350 17 GM PACKET PO SCH (07:47)
--- NOTE | 2022-01-28 14:19 | PROVIDER PROGRESS NOTE ---
Assessment/Plan - Problem List (1) Metabolic encephalopathy Assessment/Plan: 01/28 pt is stable after pt's haldol and Zyprexa were hold, will continue today Seroquel 25 mg until 01/29 per tele psychiatrist'd recommendation. continue consult with perinatal social worker for discharge planing. 01/27 pt had tele psychiatrist consult on today morning. Per consultation, pt's meds haldol, and Zyprexa on the hold, and seroquel is reduced to 25mg until 01/29 then off. tele psychiatrist also consulted for pt's capacity to make his decision. pt is alert and oriented plus 4. pt told me he hope to move to live with his any one of his five sisters for a while. he report any his sisters accepted him. he hope to continue get help from hospital for his alcohol quitting such as AA information. Then he talked about pt's plan to move to [facility]. he state he had $4000+1000 money to move to [facility] to live. he also report his daughter and grandchildren saw him on yesterday at hospital. plan: will followup with tele psych recommendation, hold of Haldol and Zyprexa, reduce to 25 mg of Seroquel to 01/29 then hold. continue consult with perinatal social worker for discharge planing. (2) COVID-19 Impression: resolved. pt has no respiratory distress and walk at hallway. He was off of contact precautions. (3) Homeless single person Impression: Continuing to work on disposition. appreciate social work input for pt (4) Alcohol abuse Impression: He initially went through alcohol withdrawal but this is now resolved. We are continuing thiamine supplementation daily. we consulted with perinatal social worker to help for pt's alcohol quitting. - Current Meds Current Meds: Current Medications Generic Name Dose Route Start Last Admin Trade Name Freq PRN Reason Stop Dose Admin Docusate Sodium 250 - 500 mg 12/22/21 07:23 01/10/22 08:12 Docusate Sodium 250 Mg Capsule PO 250 mg DAILY PRN Administration Constipation Magnesium Oxide 400 mg 12/05/21 09:00 01/28/22 07:46 Magnesium Oxide 400 Mg Tablet PO 400 mg DAILY MARY Administration Multivitamins 1 tab 12/05/21 09:00 01/28/22 07:46 Multivitamin Tablet PO 1 tab DAILY MARY Administration Nicotine 1 patch 01/03/22 09:00 01/28/22 07:46 Nicotine 7 Mg Patch TOP 1 patch DAILY MARY Administration Polyethylene Glycol 17 gm 12/09/21 14:00 01/28/22 07:47 Polyethylene Glycol 3350 17 Gm Packet PO Not Given DAILY MARY Quetiapine Fumarate 25 mg 01/27/22 21:00 01/27/22 21:04 Quetiapine 25 Mg Tablet PO 25 mg QPM MARY Administration Senna 8.6 - 17.2 mg 12/22/21 07:23 01/10/22 08:12 Senna 8.6 Mg Tablet PO 8.6 mg DAILY PRN Administration Constipation Thiamine HCl 100 mg 12/04/21 09:00 01/28/22 07:46 Thiamine 100 Mg Tablet PO 100 mg DAILY MARY Administration - Lab Result Fish Bone Diagrams: 01/26/22 04:20 01/26/22 04:20 - Additional Planning My Orders: My Active Orders 01/27/22 21:00 QUEtiapine [SEROquel] 25 mg PO QPM Subjective - Subjective Patient Reports: Resting Comfortably, No Complaints Objective Vital Signs: Vital Signs - 24 hr 01/28/22 07:43 Temperature 36.4 C L Heart Rate [ 90 Brachial] Respiratory 16 Rate Blood Pressure 126/94 H [Right Radial artery] O2 Saturation 96 Oxygen O2 Source Room air I&O (Last 24 Hrs): Intake and Output Totals x24h 01/26/22 01/27/22 01/28/22 23:59 23:59 23:59 Intake Total 0 1320 1440 Balance 2059 1320 1440 General: Alert, Oriented x3, Cooperative, No acute distress HEENT: Atraumatic Neck: Supple Lymphatic: no adenopathy Neuro: Alert, Non Focal, Oriented Times 3 Cardiovascular: Regular rate, Normal S1, Normal S2 Respiratory: Chest non-tender, No respiratory distress Abdomen: Normal bowel sounds, Soft, No tenderness Extremities: Normal pulses - Results Results: Laboratory Results WBC 5.3 x10^3/uL (4.8-10.8) 01/26/22 04:20 RBC 4.39 10^6/uL (4.70-6.10) L 01/26/22 04:20 Hgb 13.6 g/dL (14.0-18.0) L 01/26/22 04:20 Hct 41.1 % (42.0-52.0) L 01/26/22 04:20 MCV 93.6 fL (80.0-94.0) 01/26/22 04:20 MCH 31.0 pg (27.0-31.0) 01/26/22 04:20 MCHC 33.1 g/dL (32.0-36.0) 01/26/22 04:20 RDW 13.2 % (12.0-15.0) 01/26/22 04:20 Plt Count 131 10^3/uL (130-450) 01/26/22 04:20 MPV 12.8 fL (7.4-11.4) H 01/26/22 04:20 Neut # (Auto) 2.5 10^3/uL (1.5-6.6) 01/26/22 04:20 Lymph # (Auto) 1.8 10^3/uL (1.5-3.5) 01/26/22 04:20 [place] # (Auto) 0.6 10^3/uL (0.0-1.0) 01/26/22 04:20 Eos # (Auto) 0.2 10^3/uL (0.0-0.7) 01/26/22 04:20 Baso # (Auto) 0.1 10^3/uL (0.0-0.1) 01/26/22 04:20 Absolute Nucleated RBC 0.00 x10^3/uL 01/26/22 04:20 Nucleated RBC % 0.0 /100WBC 01/26/22 04:20 PT 15.1 secs (9.9-12.6) H 12/04/21 23:33 INR 1.4 (0.8-1.2) H 12/04/21 23:33 APTT 24.8 secs (24.9-33.3) L 12/03/21 18:20 Sodium 139 mmol/L (135-145) 01/26/22 04:20 Potassium 4.0 mmol/L (3.5-5.0) 01/26/22 04:20 Chloride 104 mmol/L (101-111) 01/26/22 04:20 Carbon Dioxide 25 mmol/L (21-32) 01/26/22 04:20 Anion Gap 10.0 (6-13) 01/26/22 04:20 BUN 17 mg/dL (6-20) 01/26/22 04:20 Creatinine 0.6 mg/dL (0.6-1.2) 01/26/22 04:20 Estimated GFR (MDRD) 137 (>89) 01/26/22 04:20 Glucose 154 mg/dL (70-100) H 01/26/22 04:20 Estimat Average Glucose 111 mg/dL (70-100) H 01/26/22 04:20 Hemoglobin A1c % 5.5 % (4.27-6.07) 01/26/22 04:20 Calcium 9.0 mg/dL (8.5-10.3) 01/26/22 04:20 Phosphorus 3.6 mg/dL (2.5-4.6) 12/06/21 07:04 Magnesium 2.0 mg/dL (1.7-2.8) 12/06/21 07:04 Total Bilirubin 0.5 mg/dL (0.2-1.0) 01/26/22 04:20 Direct Bilirubin 0.1 mg/dL (0.1-0.5) 01/26/22 04:20 AST 77 IU/L (10-42) H 01/26/22 04:20 ALT 104 IU/L (10-60) H 01/26/22 04:20 Alkaline Phosphatase 58 IU/L (42-121) 01/26/22 04:20 Ammonia 12.5 umol/L (7-35) 12/08/21 07:54 Total Protein 6.4 g/dL (6.7-8.2) L 01/26/22 04:20 Albumin 3.6 g/dL (3.2-5.5) 01/26/22 04:20 Globulin 2.8 g/dL (2.1-4.2) 01/26/22 04:20 Albumin/Globulin Ratio 1.1 (1.0-2.2) 12/12/21 08:07 Lipase 28 U/L (22-51) 12/06/21 07:04 Whole Bld Vitamin B1 TNP 12/04/21 16:52 Vitamin B12 317 pg/mL (180-914) 01/26/22 04:20 Folate 20.49 ng/mL (5.90 - >24.8) 01/26/22 04:20 TSH 1.25 uIU/mL (0.34-5.60) 12/03/21 18:20 Urine Color YELLOW 12/03/21 18:26 Urine Clarity CLEAR (CLEAR) 12/03/21 18:26 Urine pH 6.5 PH (5.0-7.5) 12/03/21 18:26 Ur Specific [place] 1.020 (1.002-1.030) 12/03/21 18:26 Urine Protein NEGATIVE mg/dL (NEGATIVE) 12/03/21 18:26 Urine Glucose (UA) NEGATIVE mg/dL (NEGATIVE) 12/03/21 18: Urine Ketones NEGATIVE mg/dL (NEGATIVE) 12/03/21 18: Urine Occult Blood NEGATIVE (NEGATIVE) 12/03/21 18: Urine Nitrite NEGATIVE (NEGATIVE) 12/03/21 18: Urine Bilirubin NEGATIVE (NEGATIVE) 12/03/21 18:26 Urine Urobilinogen 0.2 (NORMAL) E.U./dL (NORMAL) 12/03/21 18:26 Ur Leukocyte Esterase NEGATIVE (NEGATIVE) 12/03/21 18:26 Ur Microscopic Review NOT INDICATED 12/03/21 18:26 Urine Culture Comments NOT INDICATED 12/03/21 18:26 Nasal Adenovirus (PCR) NOT DETECTED 12/20/21 19:10 Nasal B. parapertussis DNA (PCR) NOT DETECTED 12/20/21 19:10 Nasal Coronavir 229E PCR NOT DETECTED 12/20/21 19:10 Nasal Coronavir HKU1 PCR NOT DETECTED 12/20/21 19:10 Nasal Coronavir NL63 PCR NOT DETECTED 12/20/21 19:10 Nasal Coronavir OC43 PCR NOT DETECTED 12/20/21 19:10 Nasal Enterovir/Rhinovir PCR NOT DETECTED 12/20/21 19:10 Nasal Influenza B PCR NOT DETECTED 12/20/21 19:10 Nasal Influenza A PCR NOT DETECTED 12/20/21 19:10 Nasal Parainfluen 1 PCR NOT DETECTED 12/20/21 19:10 Nasal Parainfluen 2 PCR NOT DETECTED 12/20/21 19:10 Nasal Parainfluen 3 PCR NOT DETECTED 12/20/21 19:10 Nasal Parainfluen 4 PCR NOT DETECTED 12/20/21 19:10 Nasal RSV (PCR) NOT DETECTED 12/20/21 19:10 Nasal B.pertussis DNA PCR NOT DETECTED 12/20/21 19:10 Nasal C.pneumoniae (PCR) NOT DETECTED 12/20/21 19:10 Juan Daniel Human Metapneumo PCR NOT DETECTED 12/20/21 19:10 Nasal M.pneumoniae (PCR) NOT DETECTED 12/20/21 19:10 Nasal SARS-CoV-2 (PCR) DETECTED A 12/20/21 19:10 Salicylates < 6.0 mg/dL 12/03/21 18:20 Urine Opiates Screen NEGATIVE (NEGATIVE) 12/03/21 18:26 Ur Oxycodone Screen NEGATIVE (NEGATIVE) 12/03/21 18:26 Urine Methadone Screen NEGATIVE (NEGATIVE) 12/03/21 18:26 Ur Propoxyphene Screen NEGATIVE (NEGATIVE) 12/03/21 18:26 Acetaminophen < 10 ug/mL (10-30) L 12/03/21 18:20 Ur Barbiturates Screen NEGATIVE (NEGATIVE) 12/03/21 18:26 Ur Tricyclics Screen NEGATIVE (NEGATIVE) 12/03/21 18:26 Ur Phencyclidine Scrn NEGATIVE (NEGATIVE) 12/03/21 18:26 Ur Amphetamine Screen NEGATIVE (NEGATIVE) 12/03/21 18:26 U Methamphetamines Scrn NEGATIVE (NEGATIVE) 12/03/21 18:26 U Benzodiazepines Scrn POSITIVE (NEGATIVE) H 12/03/21 18:26 Urine Cocaine Screen NEGATIVE (NEGATIVE) 12/03/21 18:26 U Cannabinoids Screen NEGATIVE (NEGATIVE) 12/03/21 18:26 Ethyl Alcohol < 5.0 mg/dL 12/03/21 18:20 Sepsis Event Note (H) - Evaluation Current Stage of Sepsis: Ruled out ABX Reporting Has patient been on IV antibiotics over the past 48 hours?: No Current Medications - Current Medications Current Medications: Active Medications Docusate Sodium (Docusate Sodium 250 Mg Capsule) 250 - 500 mg PO DAILY PRN PRN Reason: Constipation Last Admin: 01/10/22 08:12 Dose: 250 mg Ibuprofen (Ibuprofen 400 Mg Tablet) 400 mg PO Q6HR PRN PRN Reason: Pain or Fever > 38C (100.4F) Magnesium Oxide (Magnesium Oxide 400 Mg Tablet) 400 mg PO DAILY MARY Last Admin: 01/28/22 07:46 Dose: 400 mg Multivitamins (Multivitamin Tablet) 1 tab PO DAILY MARY Last Admin: 01/28/22 07:46 Dose: 1 tab Nicotine (Nicotine 7 Mg Patch) 1 patch TOP DAILY [facility] Last Admin: 01/28/22 07:46 Dose: 1 patch Polyethylene Glycol (Polyethylene Glycol 3350 17 Gm Packet) 17 gm PO DAILY [facility] Last Admin: 01/28/22 07:47 Dose: Not Given Quetiapine Fumarate (Quetiapine 25 Mg Tablet) 25 mg PO QPM [facility] Last Admin: 01/27/22 21:04 Dose: 25 mg Senna (Senna 8.6 Mg Tablet) 8.6 - 17.2 mg PO DAILY PRN PRN Reason: Constipation Last Admin: 01/10/22 08:12 Dose: 8.6 mg Thiamine HCl (Thiamine 100 Mg Tablet) 100 mg PO DAILY [facility] Last Admin: 01/28/22 07:46 Dose: 100 mg Magnesium Oxide [Mag Ox] 400 mg PO DAILY 12/01/21 Multivitamin [Theragran] 1 each PO DAILY 12/01/21
[2022-01-28] MEDS: QUEtiapine 25 MG TABLET PO SCH (22:00)
[2022-01-29] MEDS: MULTIVITAMIN TABLET PO SCH (08:25)
[2022-01-29] MEDS: THIAMINE 100 MG TABLET PO SCH (08:26)
[2022-01-29] MEDS: MAGNESIUM OXIDE 400 MG TABLET PO SCH (08:26)
[2022-01-29] MEDS: NICOTINE 7 MG PATCH TOP SCH (08:26)
[2022-01-29] MEDS: polyethylene glycoL 3350 17 GM PACKET PO SCH (08:26)
--- NOTE | 2022-01-29 15:28 | PROVIDER PROGRESS NOTE ---
Assessment/Plan - Problem List (1) Wernicke-Korsakoff syndrome (alcoholic) Assessment/Plan: 01/29 continue improvement. today is pt's birthday. we have birthday constitution party for pt. pt is smile and has appropriate conversations with us. pt had tele psychiatrist on 01/27/22. Per tele psychiatrist's recommendations, Haldol and Zyprexa was already hold, pt will have 25mg Seroquel on today, then will be hold as well. pt tolerate these waned off medications (2) COVID-19 Impression: This is now resolved. He is off of contact precautions. (3) Homeless single person Impression: Continuing to work on disposition. We appreciate social work input, and disposition planning. (4) Alcohol abuse Impression: He initially went through alcohol withdrawal but this is now resolved. We are continuing thiamine supplementation daily. - Current Meds Current Meds: Current Medications Generic Name Dose Route Start Last Admin Trade Name Lazaroq PRN Reason Stop Dose Admin Docusate Sodium 250 - 500 mg 12/22/21 07:23 01/10/22 08:12 Docusate Sodium 250 Mg Capsule PO 250 mg DAILY PRN Administration Constipation Magnesium Oxide 400 mg 12/05/21 09:00 01/29/22 08:26 Magnesium Oxide 400 Mg Tablet PO 400 mg DAILY MARY Administration Multivitamins 1 tab 12/05/21 09:00 01/29/22 08:25 Multivitamin Tablet PO 1 tab DAILY MARY Administration Nicotine 1 patch 01/03/22 09:00 01/29/22 08:26 Nicotine 7 Mg Patch TOP 1 patch DAILY MARY Administration Polyethylene Glycol 17 gm 12/09/21 14:00 01/29/22 08:26 Polyethylene Glycol 3350 17 Gm Packet PO Not Given DAILY MARY Quetiapine Fumarate 25 mg 01/27/22 21:00 01/28/22 22:00 Quetiapine 25 Mg Tablet PO 25 mg QPM MARY Administration Senna 8.6 - 17.2 mg 12/22/21 07:23 01/10/22 08:12 Senna 8.6 Mg Tablet PO 8.6 mg DAILY PRN Administration Constipation Thiamine HCl 100 mg 12/04/21 09:00 01/29/22 08:26 Thiamine 100 Mg Tablet PO 100 mg DAILY MARY Administration - Lab Result Fish Bone Diagrams: 01/26/22 04:20 01/26/22 04:20 Subjective - Subjective Patient Reports: Feeling Better, Resting Comfortably Objective Vital Signs: Vital Signs - 24 hr 01/29/22 08:21 Temperature 36.2 C L Heart Rate [ 88 Brachial] Respiratory 16 Rate Blood Pressure 113/80 [Right Radial artery] O2 Saturation 97 Oxygen O2 Source Room air I&O (Last 24 Hrs): Intake and Output Totals x24h 01/27/22 01/28/22 01/29/22 23:59 23:59 23:59 Intake Total 1320 1940 1440 Balance 1320 1940 1440 General: Alert, Oriented x3, Cooperative, No acute distress HEENT: Atraumatic Neck: Supple Lymphatic: no adenopathy Neuro: Alert, Non Focal, Oriented Times 3 Cardiovascular: Regular rate, Normal S1, Normal S2 Respiratory: Chest non-tender, No respiratory distress Abdomen: Normal bowel sounds, Soft, No tenderness Extremities: Normal pulses - Results Results: Laboratory Results WBC 5.3 x10^3/uL (4.8-10.8) 01/26/22 04:20 RBC 4.39 10^6/uL (4.70-6.10) L 01/26/22 04:20 Hgb 13.6 g/dL (14.0-18.0) L 01/26/22 04:20 Hct 41.1 % (42.0-52.0) L 01/26/22 04:20 MCV 93.6 fL (80.0-94.0) 01/26/22 04:20 MCH 31.0 pg (27.0-31.0) 01/26/22 04:20 MCHC 33.1 g/dL (32.0-36.0) 01/26/22 04:20 RDW 13.2 % (12.0-15.0) 01/26/22 04:20 Plt Count 131 10^3/uL (130-450) 01/26/22 04:20 MPV 12.8 fL (7.4-11.4) H 01/26/22 04:20 Neut # (Auto) 2.5 10^3/uL (1.5-6.6) 01/26/22 04:20 Lymph # (Auto) 1.8 10^3/uL (1.5-3.5) 01/26/22 04:20 [place] # (Auto) 0.6 10^3/uL (0.0-1.0) 01/26/22 04:20 Eos # (Auto) 0.2 10^3/uL (0.0-0.7) 01/26/22 04:20 Baso # (Auto) 0.1 10^3/uL (0.0-0.1) 01/26/22 04:20 Absolute Nucleated RBC 0.00 x10^3/uL 01/26/22 04:20 Nucleated RBC % 0.0 /100WBC 01/26/22 04:20 PT 15.1 secs (9.9-12.6) H 12/04/21 23:33 INR 1.4 (0.8-1.2) H 12/04/21 23:33 APTT 24.8 secs (24.9-33.3) L 12/03/21 18:20 Sodium 139 mmol/L (135-145) 01/26/22 04:20 Potassium 4.0 mmol/L (3.5-5.0) 01/26/22 04:20 Chloride 104 mmol/L (101-111) 01/26/22 04:20 Carbon Dioxide 25 mmol/L (21-32) 01/26/22 04:20 Anion Gap 10.0 (6-13) 01/26/22 04:20 BUN 17 mg/dL (6-20) 01/26/22 04:20 Creatinine 0.6 mg/dL (0.6-1.2) 01/26/22 04:20 Estimated GFR (MDRD) 137 (>89) 01/26/22 04:20 Glucose 154 mg/dL (70-100) H 01/26/22 04:20 Estimat Average Glucose 111 mg/dL (70-100) H 01/26/22 04:20 Hemoglobin A1c % 5.5 % (4.27-6.07) 01/26/22 04:20 Calcium 9.0 mg/dL (8.5-10.3) 01/26/22 04:20 Phosphorus 3.6 mg/dL (2.5-4.6) 12/06/21 07:04 Magnesium 2.0 mg/dL (1.7-2.8) 12/06/21 07:04 Total Bilirubin 0.5 mg/dL (0.2-1.0) 01/26/22 04:20 Direct Bilirubin 0.1 mg/dL (0.1-0.5) 01/26/22 04:20 AST 77 IU/L (10-42) H 01/26/22 04:20 ALT 104 IU/L (10-60) H 01/26/22 04:20 Alkaline Phosphatase 58 IU/L (42-121) 01/26/22 04:20 Ammonia 12.5 umol/L (7-35) 12/08/21 07:54 Total Protein 6.4 g/dL (6.7-8.2) L 01/26/22 04:20 Albumin 3.6 g/dL (3.2-5.5) 01/26/22 04:20 Globulin 2.8 g/dL (2.1-4.2) 01/26/22 04:20 Albumin/Globulin Ratio 1.1 (1.0-2.2) 12/12/21 08:07 Lipase 28 U/L (22-51) 12/06/21 07:04 Whole Bld Vitamin B1 TNP 12/04/21 16:52 Vitamin B12 317 pg/mL (180-914) 01/26/22 04:20 Folate 20.49 ng/mL (5.90 - >24.8) 01/26/22 04:20 TSH 1.25 uIU/mL (0.34-5.60) 12/03/21 18:20 Urine Color YELLOW 12/03/21 18:26 Urine Clarity CLEAR (CLEAR) 12/03/21 18:26 Urine pH 6.5 PH (5.0-7.5) 12/03/21 18:26 Ur Specific [place] 1.020 (1.002-1.030) 12/03/21 18:26 Urine Protein NEGATIVE mg/dL (NEGATIVE) 12/03/21 18:26 Urine Glucose (UA) NEGATIVE mg/dL (NEGATIVE) 12/03/21 18:26 Urine Ketones NEGATIVE mg/dL (NEGATIVE) 12/03/21 18:26 Urine Occult Blood NEGATIVE (NEGATIVE) 12/03/21 18:26 Urine Nitrite NEGATIVE (NEGATIVE) 12/03/21 18:26 Urine Bilirubin NEGATIVE (NEGATIVE) 12/03/21 18:26 Urine Urobilinogen 0.2 (NORMAL) E.U./dL (NORMAL) 12/03/21 18:26 Ur Leukocyte Esterase NEGATIVE (NEGATIVE) 12/03/21 18:26 Ur Microscopic Review NOT INDICATED 12/03/21 18:26 Urine Culture Comments NOT INDICATED 12/03/21 18:26 Nasal Adenovirus (PCR) NOT DETECTED 12/20/21 19:10 Nasal B. parapertussis DNA (PCR) NOT DETECTED 12/20/21 19:10 Nasal Coronavir 229E PCR NOT DETECTED 12/20/21 19:10 Nasal Coronavir HKU1 PCR NOT DETECTED 12/20/21 19:10 Nasal Coronavir NL63 PCR NOT DETECTED 12/20/21 19:10 Nasal Coronavir OC43 PCR NOT DETECTED 12/20/21 19:10 Nasal Enterovir/Rhinovir PCR NOT DETECTED 12/20/21 19:10 Nasal Influenza B PCR NOT DETECTED 12/20/21 19:10 Nasal Influenza A PCR NOT DETECTED 12/20/21 19:10 Nasal Parainfluen 1 PCR NOT DETECTED 12/20/21 19:10 Nasal Parainfluen 2 PCR NOT DETECTED 12/20/21 19:10 Nasal Parainfluen 3 PCR NOT DETECTED 12/20/21 19:10 Nasal Parainfluen 4 PCR NOT DETECTED 12/20/21 19:10 Nasal RSV (PCR) NOT DETECTED 12/20/21 19:10 Nasal B.pertussis DNA PCR NOT DETECTED 12/20/21 19:10 Nasal C.pneumoniae (PCR) NOT DETECTED 12/20/21 19:10 Juan Daniel Human Metapneumo PCR NOT DETECTED 12/20/21 19:10 Nasal M.pneumoniae (PCR) NOT DETECTED 12/20/21 19:10 Nasal SARS-CoV-2 (PCR) DETECTED A 12/20/21 19:10 Salicylates < 6.0 mg/dL 12/03/21 18:20 Urine Opiates Screen NEGATIVE (NEGATIVE) 12/03/21 18:26 Ur Oxycodone Screen NEGATIVE (NEGATIVE) 12/03/21 18:26 Urine Methadone Screen NEGATIVE (NEGATIVE) 12/03/21 18:26 Ur Propoxyphene Screen NEGATIVE (NEGATIVE) 12/03/21 18:26 Acetaminophen < 10 ug/mL (10-30) L 12/03/21 18:20 Ur Barbiturates Screen NEGATIVE (NEGATIVE) 12/03/21 18:26 Ur Tricyclics Screen NEGATIVE (NEGATIVE) 12/03/21 18:26 Ur Phencyclidine Scrn NEGATIVE (NEGATIVE) 12/03/21 18:26 Ur Amphetamine Screen NEGATIVE (NEGATIVE) 12/03/21 18:26 U Methamphetamines Scrn NEGATIVE (NEGATIVE) 12/03/21 18:26 U Benzodiazepines Scrn POSITIVE (NEGATIVE) H 12/03/21 18:26 Urine Cocaine Screen NEGATIVE (NEGATIVE) 12/03/21 18:26 U Cannabinoids Screen NEGATIVE (NEGATIVE) 12/03/21 18:26 Ethyl Alcohol < 5.0 mg/dL 12/03/21 18:20 Sepsis Event Note (H) - Evaluation Current Stage of Sepsis: Ruled out ABX Reporting Has patient been on IV antibiotics over the past 48 hours?: No Current Medications - Current Medications Current Medications: Active Medications Docusate Sodium (Docusate Sodium 250 Mg Capsule) 250 - 500 mg PO DAILY PRN PRN Reason: Constipation Last Admin: 01/10/22 08:12 Dose: 250 mg Ibuprofen (Ibuprofen 400 Mg Tablet) 400 mg PO Q6HR PRN PRN Reason: Pain or Fever > 38C (100.4F) Magnesium Oxide (Magnesium Oxide 400 Mg Tablet) 400 mg PO DAILY [facility] Last Admin: 01/29/22 08:26 Dose: 400 mg Multivitamins (Multivitamin Tablet) 1 tab PO DAILY [facility] Last Admin: 01/29/22 08:25 Dose: 1 tab Nicotine (Nicotine 7 Mg Patch) 1 patch TOP DAILY [facility] Last Admin: 01/29/22 08:26 Dose: 1 patch Polyethylene Glycol (Polyethylene Glycol 3350 17 Gm Packet) 17 gm PO DAILY [facility] Last Admin: 01/29/22 08:26 Dose: Not Given Quetiapine Fumarate (Quetiapine 25 Mg Tablet) 25 mg PO QPM [facility] Last Admin: 01/28/22 22:00 Dose: 25 mg Senna (Senna 8.6 Mg Tablet) 8.6 - 17.2 mg PO DAILY PRN PRN Reason: Constipation Last Admin: 01/10/22 08:12 Dose: 8.6 mg Thiamine HCl (Thiamine 100 Mg Tablet) 100 mg PO DAILY [facility] Last Admin: 01/29/22 08:26 Dose: 100 mg Magnesium Oxide [Mag Ox] 400 mg PO DAILY 12/01/21 Multivitamin [Theragran] 1 each PO DAILY 12/01/21
[2022-01-29] MEDS: QUEtiapine 25 MG TABLET PO SCH (21:12)
[2022-01-30] MEDS: THIAMINE 100 MG TABLET PO SCH (08:23)
[2022-01-30] MEDS: MAGNESIUM OXIDE 400 MG TABLET PO SCH (08:23)
[2022-01-30] MEDS: MULTIVITAMIN TABLET PO SCH (08:23)
[2022-01-30] MEDS: NICOTINE 7 MG PATCH TOP SCH (08:23)
[2022-01-30] MEDS: polyethylene glycoL 3350 17 GM PACKET PO SCH (08:23)
--- NOTE | 2022-01-30 09:26 | PROVIDER PROGRESS NOTE ---
Assessment/Plan - Problem List (1) Wernicke-Korsakoff syndrome (alcoholic) Assessment/Plan: 01/30 pt is stable, pt walk at hallway. we will hold Seroquel on today per tele psychiatrist's recommendation, continue disposition planning 01/29 continue improvement. today is pt's birthday. we have birthday republican for pt. pt is smile and has appropriate conversations with us. pt had tele psychiatrist on 01/27/22. Per tele psychiatrist's recommendations, Haldol and Zyprexa was already hold, pt will have 25mg Seroquel on today, then will be hold as well. pt tolerate these waned off medications (2) COVID-19 Impression: This is now resolved. He is off of contact precautions. (3) Homeless single person Impression: Continuing to work on disposition. We appreciate social work input, and disposition planning. (4) Alcohol abuse Impression: He initially went through alcohol withdrawal but this is now resolved. We are continuing thiamine supplementation daily. - Current Meds Current Meds: Current Medications Generic Name Dose Route Start Last Admin Trade Name Debby PRN Reason Stop Dose Admin Docusate Sodium 250 - 500 mg 12/22/21 07:23 01/10/22 08:12 Docusate Sodium 250 Mg Capsule PO 250 mg DAILY PRN Administration Constipation Magnesium Oxide 400 mg 12/05/21 09:00 01/30/22 08:23 Magnesium Oxide 400 Mg Tablet PO 400 mg DAILY MARY Administration Multivitamins 1 tab 12/05/21 09:00 01/30/22 08:23 Multivitamin Tablet PO 1 tab DAILY MARY Administration Nicotine 1 patch 01/03/22 09:00 01/30/22 08:23 Nicotine 7 Mg Patch TOP 1 patch DAILY MARY Administration Polyethylene Glycol 17 gm 12/09/21 14:00 01/30/22 08:23 Polyethylene Glycol 3350 17 Gm Packet PO Not Given DAILY MARY Senna 8.6 - 17.2 mg 12/22/21 07:23 01/10/22 08:12 Senna 8.6 Mg Tablet PO 8.6 mg DAILY PRN Administration Constipation Thiamine HCl 100 mg 12/04/21 09:00 01/30/22 08:23 Thiamine 100 Mg Tablet PO 100 mg DAILY MARY Administration - Lab Result Fish Bone Diagrams: 01/26/22 04:20 01/26/22 04:20 Subjective - Subjective Patient Reports: Resting Comfortably, No Complaints Objective Vital Signs: Vital Signs - 24 hr 01/30/22 07:42 Temperature 36.5 C Heart Rate [ 96 Brachial] Respiratory 18 Rate Blood Pressure 108/75 [Left Brachial artery] O2 Saturation 97 Oxygen O2 Source Room air I&O (Last 24 Hrs): Intake and Output Totals x24h 01/28/22 01/29/22 01/30/22 23:59 23:59 23:59 Intake Total 1939 1839 980 Balance 1939 1839 980 General: Alert, Oriented x3, Cooperative, No acute distress HEENT: Atraumatic Neck: Supple Lymphatic: no adenopathy Neuro: Alert, Non Focal, Oriented Times 3 Cardiovascular: Regular rate, Normal S1, Normal S2 Respiratory: Chest non-tender, No respiratory distress Abdomen: Normal bowel sounds, Soft, No tenderness Extremities: Normal pulses - Results Results: Laboratory Results WBC 5.3 x10^3/uL (4.8-10.8) 01/26/22 04:20 RBC 4.39 10^6/uL (4.70-6.10) L 01/26/22 04:20 Hgb 13.6 g/dL (14.0-18.0) L 01/26/22 04:20 Hct 41.1 % (42.0-52.0) L 01/26/22 04:20 MCV 93.6 fL (80.0-94.0) 01/26/22 04:20 MCH 31.0 pg (27.0-31.0) 01/26/22 04:20 MCHC 33.1 g/dL (32.0-36.0) 01/26/22 04:20 RDW 13.2 % (12.0-15.0) 01/26/22 04:20 Plt Count 131 10^3/uL (130-450) 01/26/22 04:20 MPV 12.8 fL (7.4-11.4) H 01/26/22 04:20 Neut # (Auto) 2.5 10^3/uL (1.5-6.6) 01/26/22 04:20 Lymph # (Auto) 1.8 10^3/uL (1.5-3.5) 01/26/22 04:20 [place] # (Auto) 0.6 10^3/uL (0.0-1.0) 01/26/22 04:20 Eos # (Auto) 0.2 10^3/uL (0.0-0.7) 01/26/22 04:20 Baso # (Auto) 0.1 10^3/uL (0.0-0.1) 01/26/22 04:20 Absolute Nucleated RBC 0.00 x10^3/uL 01/26/22 04:20 Nucleated RBC % 0.0 /100WBC 01/26/22 04:20 PT 15.1 secs (9.9-12.6) H 12/04/21 23:33 INR 1.4 (0.8-1.2) H 12/04/21 23:33 APTT 24.8 secs (24.9-33.3) L 12/03/21 18:20 Sodium 139 mmol/L (135-145) 01/26/22 04:20 Potassium 4.0 mmol/L (3.5-5.0) 01/26/22 04:20 Chloride 104 mmol/L (101-111) 01/26/22 04:20 Carbon Dioxide 25 mmol/L (21-32) 01/26/22 04:20 Anion Gap 10.0 (6-13) 01/26/22 04:20 BUN 17 mg/dL (6-20) 01/26/22 04:20 Creatinine 0.6 mg/dL (0.6-1.2) 01/26/22 04:20 Estimated GFR (MDRD) 137 (>89) 01/26/22 04:20 Glucose 154 mg/dL (70-100) H 01/26/22 04:20 Estimat Average Glucose 111 mg/dL (70-100) H 01/26/22 04:20 Hemoglobin A1c % 5.5 % (4.27-6.07) 01/26/22 04:20 Calcium 9.0 mg/dL (8.5-10.3) 01/26/22 04:20 Phosphorus 3.6 mg/dL (2.5-4.6) 12/06/21 07:04 Magnesium 2.0 mg/dL (1.7-2.8) 12/06/21 07:04 Total Bilirubin 0.5 mg/dL (0.2-1.0) 01/26/22 04:20 Direct Bilirubin 0.1 mg/dL (0.1-0.5) 01/26/22 04:20 AST 77 IU/L (10-42) H 01/26/22 04:20 ALT 104 IU/L (10-60) H 01/26/22 04:20 Alkaline Phosphatase 58 IU/L (42-121) 01/26/22 04:20 Ammonia 12.5 umol/L (7-35) 12/08/21 07:54 Total Protein 6.4 g/dL (6.7-8.2) L 01/26/22 04:20 Albumin 3.6 g/dL (3.2-5.5) 01/26/22 04:20 Globulin 2.8 g/dL (2.1-4.2) 01/26/22 04:20 Albumin/Globulin Ratio 1.1 (1.0-2.2) 12/12/21 08:07 Lipase 28 U/L (22-51) 12/06/21 07:04 Whole Bld Vitamin B1 TNP 12/04/21 16:52 Vitamin B12 317 pg/mL (180-914) 01/26/22 04:20 Folate 20.49 ng/mL (5.90 - >24.8) 01/26/22 04:20 TSH 1.25 uIU/mL (0.34-5.60) 12/03/21 18:20 Urine Color YELLOW 12/03/21 18:26 Urine Clarity CLEAR (CLEAR) 12/03/21 18:26 Urine pH 6.5 PH (5.0-7.5) 12/03/21 18:26 Ur Specific [place] 1.020 (1.002-1.030) 12/03/21 18:26 Urine Protein NEGATIVE mg/dL (NEGATIVE) 12/03/21 18:26 Urine Glucose (UA) NEGATIVE mg/dL (NEGATIVE) 12/03/21 18:26 Urine Ketones NEGATIVE mg/dL (NEGATIVE) 12/03/21 18:26 Urine Occult Blood NEGATIVE (NEGATIVE) 12/03/21 18:26 Urine Nitrite NEGATIVE (NEGATIVE) 12/03/21 18:26 Urine Bilirubin NEGATIVE (NEGATIVE) 12/03/21 18:26 Urine Urobilinogen 0.2 (NORMAL) E.U./dL (NORMAL) 12/03/21 18:26 Ur Leukocyte Esterase NEGATIVE (NEGATIVE) 12/03/21 18:26 Ur Microscopic Review NOT INDICATED 12/03/21 18:26 Urine Culture Comments NOT INDICATED 12/03/21 18:26 Nasal Adenovirus (PCR) NOT DETECTED 12/20/21 19:10 Nasal B. parapertussis DNA (PCR) NOT DETECTED 12/20/21 19:10 Nasal Coronavir 229E PCR NOT DETECTED 12/20/21 19:10 Nasal Coronavir HKU1 PCR NOT DETECTED 12/20/21 19:10 Nasal Coronavir NL63 PCR NOT DETECTED 12/20/21 19:10 Nasal Coronavir OC43 PCR NOT DETECTED 12/20/21 19:10 Nasal Enterovir/Rhinovir PCR NOT DETECTED 12/20/21 19:10 Nasal Influenza B PCR NOT DETECTED 12/20/21 19:10 Nasal Influenza A PCR NOT DETECTED 12/20/21 19:10 Nasal Parainfluen 1 PCR NOT DETECTED 12/20/21 19:10 Nasal Parainfluen 2 PCR NOT DETECTED 12/20/21 19:10 Nasal Parainfluen 3 PCR NOT DETECTED 12/20/21 19:10 Nasal Parainfluen 4 PCR NOT DETECTED 12/20/21 19:10 Nasal RSV (PCR) NOT DETECTED 12/20/21 19:10 Nasal B.pertussis DNA PCR NOT DETECTED 12/20/21 19:10 Nasal C.pneumoniae (PCR) NOT DETECTED 12/20/21 19:10 Juan Daniel Human Metapneumo PCR NOT DETECTED 12/20/21 19:10 Nasal M.pneumoniae (PCR) NOT DETECTED 12/20/21 19:10 Nasal SARS-CoV-2 (PCR) DETECTED A 12/20/21 19:10 Salicylates < 6.0 mg/dL 12/03/21 18:20 Urine Opiates Screen NEGATIVE (NEGATIVE) 12/03/21 18:26 Ur Oxycodone Screen NEGATIVE (NEGATIVE) 12/03/21 18:26 Urine Methadone Screen NEGATIVE (NEGATIVE) 12/03/21 18:26 Ur Propoxyphene Screen NEGATIVE (NEGATIVE) 12/03/21 18:26 Acetaminophen < 10 ug/mL (10-30) L 12/03/21 18:20 Ur Barbiturates Screen NEGATIVE (NEGATIVE) 12/03/21 18:26 Ur Tricyclics Screen NEGATIVE (NEGATIVE) 12/03/21 18:26 Ur Phencyclidine Scrn NEGATIVE (NEGATIVE) 12/03/21 18:26 Ur Amphetamine Screen NEGATIVE (NEGATIVE) 12/03/21 18:26 U Methamphetamines Scrn NEGATIVE (NEGATIVE) 12/03/21 18:26 U Benzodiazepines Scrn POSITIVE (NEGATIVE) H 12/03/21 18:26 Urine Cocaine Screen NEGATIVE (NEGATIVE) 12/03/21 18:26 U Cannabinoids Screen NEGATIVE (NEGATIVE) 12/03/21 18:26 Ethyl Alcohol < 5.0 mg/dL 12/03/21 18:20 Sepsis Event Note (H) - Evaluation Current Stage of Sepsis: Ruled out ABX Reporting Has patient been on IV antibiotics over the past 48 hours?: No Current Medications - Current Medications Current Medications: Active Medications Docusate Sodium (Docusate Sodium 250 Mg Capsule) 250 - 500 mg PO DAILY PRN PRN Reason: Constipation Last Admin: 01/10/22 08:12 Dose: 250 mg Ibuprofen (Ibuprofen 400 Mg Tablet) 400 mg PO Q6HR PRN PRN Reason: Pain or Fever > 38C (100.4F) Magnesium Oxide (Magnesium Oxide 400 Mg Tablet) 400 mg PO DAILY [facility] Last Admin: 01/30/22 08:23 Dose: 400 mg Multivitamins (Multivitamin Tablet) 1 tab PO DAILY [facility] Last Admin: 01/30/22 08:23 Dose: 1 tab Nicotine (Nicotine 7 Mg Patch) 1 patch TOP DAILY [facility] Last Admin: 01/30/22 08:23 Dose: 1 patch Polyethylene Glycol (Polyethylene Glycol 3350 17 Gm Packet) 17 gm PO DAILY [facility] Last Admin: 01/30/22 08:23 Dose: Not Given Senna (Senna 8.6 Mg Tablet) 8.6 - 17.2 mg PO DAILY PRN PRN Reason: Constipation Last Admin: 01/10/22 08:12 Dose: 8.6 mg Thiamine HCl (Thiamine 100 Mg Tablet) 100 mg PO DAILY [facility] Last Admin: 01/30/22 08:23 Dose: 100 mg Magnesium Oxide [Mag Ox] 400 mg PO DAILY 12/01/21 Multivitamin [Theragran] 1 each PO DAILY 12/01/21
[2022-01-31] MEDS: polyethylene glycoL 3350 17 GM PACKET PO SCH (07:45)
[2022-01-31] MEDS: THIAMINE 100 MG TABLET PO SCH (07:45)
[2022-01-31] MEDS: NICOTINE 7 MG PATCH TOP SCH (07:45)
[2022-01-31] MEDS: MULTIVITAMIN TABLET PO SCH (07:45)
[2022-01-31] MEDS: MAGNESIUM OXIDE 400 MG TABLET PO SCH (07:45)
--- NOTE | 2022-01-31 20:43 | PROVIDER PROGRESS NOTE ---
Assessment/Plan - Problem List (1) Metabolic encephalopathy Assessment/Plan: Patient has history of chronic alcohol abuse. He had a formal evaluation by telepsych on December 07 06/27/2022. He cannot make decisions for himself. He needs a guardian and will also need permanent placement. Daughter is not able to to accommodate the patient at her house due to behavioral disturbances on his part and she has a little child at home. Continue vitamin B1 100 mg p.o. daily. (3) Alcohol abuse Assessment/Plan: Patient has not had any alcoholic beverage throughout this time in the hospital. (4) COVID-19 Assessment/Plan: This was diagnosed on 12/03/2021. Patient is currently asymptomatic and breathing comfortably on room air Repeat Covid test on 12/20/2021 was positive. Patient is now out of isolation (5) Homeless single person Assessment/Plan: Social work helping to facilitate placement. This has been particularly difficult due to some behavioral problems. - Current Meds Current Meds: Current Medications Generic Name Dose Route Start Last Admin Trade Name Debby PRN Reason Stop Dose Admin Docusate Sodium 250 - 500 mg 12/22/21 07:23 01/10/22 08:12 Docusate Sodium 250 Mg Capsule PO 250 mg DAILY PRN Administration Constipation Magnesium Oxide 400 mg 12/05/21 09:00 01/31/22 07:45 Magnesium Oxide 400 Mg Tablet PO 400 mg DAILY MARY Administration Multivitamins 1 tab 12/05/21 09:00 01/31/22 07:45 Multivitamin Tablet PO 1 tab DAILY MARY Administration Nicotine 1 patch 01/03/22 09:00 01/31/22 07:45 Nicotine 7 Mg Patch TOP 1 patch DAILY MARY Administration Polyethylene Glycol 17 gm 12/09/21 14:00 01/31/22 07:45 Polyethylene Glycol 3350 17 Gm Packet PO Not Given DAILY MARY Senna 8.6 - 17.2 mg 12/22/21 07:23 01/10/22 08:12 Senna 8.6 Mg Tablet PO 8.6 mg DAILY PRN Administration Constipation Thiamine HCl 100 mg 12/04/21 09:00 01/31/22 07:45 Thiamine 100 Mg Tablet PO 100 mg DAILY MARY Administration - Lab Result Fish Bone Diagrams: 01/26/22 04:20 01/26/22 04:20 Subjective - Subjective Patient Reports: Other (Patient was resting comfortably in bed watching TV. He denied any complaints.) Objective Vital Signs: Vital Signs - 24 hr 01/31/22 07:20 Temperature 36.3 C L Heart Rate [ 82 Brachial] Respiratory 16 Rate Blood Pressure 126/80 [Right Brachial artery] O2 Saturation 95 Oxygen O2 Source Room air I&O (Last 24 Hrs): Intake and Output Totals x24h 01/29/22 01/30/22 01/31/22 23:59 23:59 23:59 Intake Total 1839 2799 2035 Balance 1839 2799 2035 General: Alert, Oriented x3, No acute distress HEENT: PERRLA, EOMI Neck: Supple, No JVD Neuro: Alert, Non Focal, Oriented Times 3 Cardiovascular: Regular rate, No murmurs Respiratory: Chest non-tender, No respiratory distress, Breath sounds nml Abdomen: Normal bowel sounds, Soft, No tenderness, No masses Extremities: No clubbing, No edema Skin: No rashes, No breakdown - Results Results: Laboratory Results WBC 5.3 x10^3/uL (4.8-10.8) 01/26/22 04:20 RBC 4.39 10^6/uL (4.70-6.10) L 01/26/22 04:20 Hgb 13.6 g/dL (14.0-18.0) L 01/26/22 04:20 Hct 41.1 % (42.0-52.0) L 01/26/22 04:20 MCV 93.6 fL (80.0-94.0) 01/26/22 04:20 MCH 31.0 pg (27.0-31.0) 01/26/22 04:20 MCHC 33.1 g/dL (32.0-36.0) 01/26/22 04:20 RDW 13.2 % (12.0-15.0) 01/26/22 04:20 Plt Count 131 10^3/uL (130-450) 01/26/22 04:20 MPV 12.8 fL (7.4-11.4) H 01/26/22 04:20 Neut # (Auto) 2.5 10^3/uL (1.5-6.6) 01/26/22 04:20 Lymph # (Auto) 1.8 10^3/uL (1.5-3.5) 01/26/22 04:20 [place] # (Auto) 0.6 10^3/uL (0.0-1.0) 01/26/22 04:20 Eos # (Auto) 0.2 10^3/uL (0.0-0.7) 01/26/22 04:20 Baso # (Auto) 0.1 10^3/uL (0.0-0.1) 01/26/22 04:20 Absolute Nucleated RBC 0.00 x10^3/uL 01/26/22 04:20 Nucleated RBC % 0.0 /100WBC 01/26/22 04:20 PT 15.1 secs (9.9-12.6) H 12/04/21 23:33 INR 1.4 (0.8-1.2) H 12/04/21 23:33 APTT 24.8 secs (24.9-33.3) L 12/03/21 18:20 Sodium 139 mmol/L (135-145) 01/26/22 04:20 Potassium 4.0 mmol/L (3.5-5.0) 01/26/22 04:20 Chloride 104 mmol/L (101-111) 01/26/22 04:20 Carbon Dioxide 25 mmol/L (21-32) 01/26/22 04:20 Anion Gap 10.0 (6-13) 01/26/22 04:20 BUN 17 mg/dL (6-20) 01/26/22 04:20 Creatinine 0.6 mg/dL (0.6-1.2) 01/26/22 04:20 Estimated GFR (MDRD) 137 (>89) 01/26/22 04:20 Glucose 154 mg/dL (70-100) H 01/26/22 04:20 Estimat Average Glucose 111 mg/dL (70-100) H 01/26/22 04:20 Hemoglobin A1c % 5.5 % (4.27-6.07) 01/26/22 04:20 Calcium 9.0 mg/dL (8.5-10.3) 01/26/22 04:20 Phosphorus 3.6 mg/dL (2.5-4.6) 12/06/21 07:04 Magnesium 2.0 mg/dL (1.7-2.8) 12/06/21 07:04 Total Bilirubin 0.5 mg/dL (0.2-1.0) 01/26/22 04:20 Direct Bilirubin 0.1 mg/dL (0.1-0.5) 01/26/22 04:20 AST 77 IU/L (10-42) H 01/26/22 04:20 ALT 104 IU/L (10-60) H 01/26/22 04:20 Alkaline Phosphatase 58 IU/L (42-121) 01/26/22 04:20 Ammonia 12.5 umol/L (7-35) 12/08/21 07:54 Total Protein 6.4 g/dL (6.7-8.2) L 01/26/22 04:20 Albumin 3.6 g/dL (3.2-5.5) 01/26/22 04:20 Globulin 2.8 g/dL (2.1-4.2) 01/26/22 04:20 Albumin/Globulin Ratio 1.1 (1.0-2.2) 12/12/21 08:07 Lipase 28 U/L (22-51) 12/06/21 07:04 Whole Bld Vitamin B1 TNP 12/04/21 16:52 Vitamin B12 317 pg/mL (180-914) 01/26/22 04:20 Folate 20.49 ng/mL (5.90 - >24.8) 01/26/22 04:20 TSH 1.25 uIU/mL (0.34-5.60) 12/03/21 18:20 Urine Color YELLOW 12/03/21 18:26 Urine Clarity CLEAR (CLEAR) 12/03/21 18:26 Urine pH 6.5 PH (5.0-7.5) 12/03/21 18:26 Ur Specific [place] 1.020 (1.002-1.030) 12/03/21 18:26 Urine Protein NEGATIVE mg/dL (NEGATIVE) 12/03/21 18:26 Urine Glucose (UA) NEGATIVE mg/dL (NEGATIVE) 12/03/21 18:26 Urine Ketones NEGATIVE mg/dL (NEGATIVE) 12/03/21 18:26 Urine Occult Blood NEGATIVE (NEGATIVE) 12/03/21 18:26 Urine Nitrite NEGATIVE (NEGATIVE) 12/03/21 18:26 Urine Bilirubin NEGATIVE (NEGATIVE) 12/03/21 18:26 Urine Urobilinogen 0.2 (NORMAL) E.U./dL (NORMAL) 12/03/21 18:26 Ur Leukocyte Esterase NEGATIVE (NEGATIVE) 12/03/21 18:26 Ur Microscopic Review NOT INDICATED 12/03/21 18:26 Urine Culture Comments NOT INDICATED 12/03/21 18:26 Nasal Adenovirus (PCR) NOT DETECTED 12/20/21 19:10 Nasal B. parapertussis DNA (PCR) NOT DETECTED 12/20/21 19:10 Nasal Coronavir 229E PCR NOT DETECTED 12/20/21 19:10 Nasal Coronavir HKU1 PCR NOT DETECTED 12/20/21 19:10 Nasal Coronavir NL63 PCR NOT DETECTED 12/20/21 19:10 Nasal Coronavir OC43 PCR NOT DETECTED 12/20/21 19:10 Nasal Enterovir/Rhinovir PCR NOT DETECTED 12/20/21 19:10 Nasal Influenza B PCR NOT DETECTED 12/20/21 19:10 Nasal Influenza A PCR NOT DETECTED 12/20/21 19:10 Nasal Parainfluen 1 PCR NOT DETECTED 12/20/21 19:10 Nasal Parainfluen 2 PCR NOT DETECTED 12/20/21 19:10 Nasal Parainfluen 3 PCR NOT DETECTED 12/20/21 19:10 Nasal Parainfluen 4 PCR NOT DETECTED 12/20/21 19:10 Nasal RSV (PCR) NOT DETECTED 12/20/21 19:10 Nasal B.pertussis DNA PCR NOT DETECTED 12/20/21 19:10 Nasal C.pneumoniae (PCR) NOT DETECTED 12/20/21 19:10 Juan Daniel Human Metapneumo PCR NOT DETECTED 12/20/21 19:10 Nasal M.pneumoniae (PCR) NOT DETECTED 12/20/21 19:10 Nasal SARS-CoV-2 (PCR) DETECTED A 12/20/21 19:10 Salicylates < 6.0 mg/dL 12/03/21 18:20 Urine Opiates Screen NEGATIVE (NEGATIVE) 12/03/21 18:26 Ur Oxycodone Screen NEGATIVE (NEGATIVE) 12/03/21 18:26 Urine Methadone Screen NEGATIVE (NEGATIVE) 12/03/21 18:26 Ur Propoxyphene Screen NEGATIVE (NEGATIVE) 12/03/21 18:26 Acetaminophen < 10 ug/mL (10-30) L 12/03/21 18:20 Ur Barbiturates Screen NEGATIVE (NEGATIVE) 12/03/21 18:26 Ur Tricyclics Screen NEGATIVE (NEGATIVE) 12/03/21 18:26 Ur Phencyclidine Scrn NEGATIVE (NEGATIVE) 12/03/21 18:26 Ur Amphetamine Screen NEGATIVE (NEGATIVE) 12/03/21 18:26 U Methamphetamines Scrn NEGATIVE (NEGATIVE) 12/03/21 18:26 U Benzodiazepines Scrn POSITIVE (NEGATIVE) H 12/03/21 18:26 Urine Cocaine Screen NEGATIVE (NEGATIVE) 12/03/21 18:26 U Cannabinoids Screen NEGATIVE (NEGATIVE) 12/03/21 18:26 Ethyl Alcohol < 5.0 mg/dL 12/03/21 18:20 Sepsis Event Note (H) - Evaluation Current Stage of Sepsis: Ruled out ABX Reporting Has patient been on IV antibiotics over the past 48 hours?: No
[2022-02-01] MEDS: MAGNESIUM OXIDE 400 MG TABLET PO SCH (08:05)
[2022-02-01] MEDS: THIAMINE 100 MG TABLET PO SCH (08:05)
[2022-02-01] MEDS: NICOTINE 7 MG PATCH TOP SCH (08:06)
[2022-02-01] MEDS: MULTIVITAMIN TABLET PO SCH (08:06)
[2022-02-01] MEDS: polyethylene glycoL 3350 17 GM PACKET PO SCH (08:07)
--- NOTE | 2022-02-01 19:34 | PROVIDER PROGRESS NOTE ---
Assessment/Plan - Problem List (1) Metabolic encephalopathy Assessment/Plan: Patient has history of chronic alcohol abuse. He had a formal evaluation by telepsych on December 07 06/27/2022. He cannot make decisions for himself. He needs a guardian and will also need permanent placement. Daughter is not able to to accommodate the patient at her house due to behavioral disturbances on his part and she has a little child at home. Continue vitamin B1 100 mg p.o. daily. (3) Alcohol abuse Assessment/Plan: Patient has not had any alcoholic beverage throughout this time in the hospital. (4) COVID-19 Assessment/Plan: This was diagnosed on 12/03/2021. Patient is currently asymptomatic and breathing comfortably on room air Repeat Covid test on 12/20/2021 was positive. Patient is now out of isolation (5) Homeless single person Assessment/Plan: Social work helping to facilitate placement. This has been particularly difficult due to some behavioral problems. - Current Meds Current Meds: Current Medications Generic Name Dose Route Start Last Admin Trade Name Debby PRN Reason Stop Dose Admin Docusate Sodium 250 - 500 mg 12/22/21 07:23 01/10/22 08:12 Docusate Sodium 250 Mg Capsule PO 250 mg DAILY PRN Administration Constipation Magnesium Oxide 400 mg 12/05/21 09:00 02/01/22 08:05 Magnesium Oxide 400 Mg Tablet PO 400 mg DAILY MARY Administration Multivitamins 1 tab 12/05/21 09:00 02/01/22 08:06 Multivitamin Tablet PO 1 tab DAILY MARY Administration Nicotine 1 patch 01/03/22 09:00 02/01/22 08:06 Nicotine 7 Mg Patch TOP 1 patch DAILY MARY Administration Polyethylene Glycol 17 gm 12/09/21 14:00 02/01/22 08:07 Polyethylene Glycol 3350 17 Gm Packet PO Not Given DAILY MARY Senna 8.6 - 17.2 mg 12/22/21 07:23 01/10/22 08:12 Senna 8.6 Mg Tablet PO 8.6 mg DAILY PRN Administration Constipation Thiamine HCl 100 mg 12/04/21 09:00 02/01/22 08:05 Thiamine 100 Mg Tablet PO 100 mg DAILY MARY Administration - Lab Result Fish Bone Diagrams: 01/26/22 04:20 01/26/22 04:20 Subjective - Subjective Patient Reports: Other (Patient was resting comfortably in bed. He denied any complaints.) Objective Vital Signs: Vital Signs - 24 hr 02/01/22 07:32 Temperature 36.4 C L Heart Rate [ 78 Brachial] Respiratory 16 Rate Blood Pressure 130/88 H [Right Brachial artery] O2 Saturation 96 Oxygen O2 Source Room air I&O (Last 24 Hrs): Intake and Output Totals x24h 01/30/22 01/31/22 02/01/22 23:59 23:59 23:59 Intake Total 2800 2816 2276 Balance 2800 2816 2276 Comments/Notes: General: Alert, Oriented x3, No acute distress HEENT: PERRLA, EOMI Neck: Supple, No JVD Neuro: Alert, Non Focal, Oriented Times 3 Cardiovascular: Regular rate, No murmurs Respiratory: Chest non-tender, No respiratory distress, Breath sounds nml Abdomen: Normal bowel sounds, Soft, No tenderness, No masses Extremities: No clubbing, No edema Skin: No rashes, No breakdown - Results Results: Laboratory Results WBC 5.3 x10^3/uL (4.8-10.8) 01/26/22 04:20 RBC 4.39 10^6/uL (4.70-6.10) L 01/26/22 04:20 Hgb 13.6 g/dL (14.0-18.0) L 01/26/22 04:20 Hct 41.1 % (42.0-52.0) L 01/26/22 04:20 MCV 93.6 fL (80.0-94.0) 01/26/22 04:20 MCH 31.0 pg (27.0-31.0) 01/26/22 04:20 MCHC 33.1 g/dL (32.0-36.0) 01/26/22 04:20 RDW 13.2 % (12.0-15.0) 01/26/22 04:20 Plt Count 131 10^3/uL (130-450) 01/26/22 04:20 MPV 12.8 fL (7.4-11.4) H 01/26/22 04:20 Neut # (Auto) 2.5 10^3/uL (1.5-6.6) 01/26/22 04:20 Lymph # (Auto) 1.8 10^3/uL (1.5-3.5) 01/26/22 04:20 [place] # (Auto) 0.6 10^3/uL (0.0-1.0) 01/26/22 04:20 Eos # (Auto) 0.2 10^3/uL (0.0-0.7) 01/26/22 04:20 Baso # (Auto) 0.1 10^3/uL (0.0-0.1) 01/26/22 04:20 Absolute Nucleated RBC 0.00 x10^3/uL 01/26/22 04:20 Nucleated RBC % 0.0 /100WBC 01/26/22 04:20 PT 15.1 secs (9.9-12.6) H 12/04/21 23:33 INR 1.4 (0.8-1.2) H 12/04/21 23:33 APTT 24.8 secs (24.9-33.3) L 12/03/21 18:20 Sodium 139 mmol/L (135-145) 01/26/22 04:20 Potassium 4.0 mmol/L (3.5-5.0) 01/26/22 04:20 Chloride 104 mmol/L (101-111) 01/26/22 04:20 Carbon Dioxide 25 mmol/L (21-32) 01/26/22 04:20 Anion Gap 10.0 (6-13) 01/26/22 04:20 BUN 17 mg/dL (6-20) 01/26/22 04:20 Creatinine 0.6 mg/dL (0.6-1.2) 01/26/22 04:20 Estimated GFR (MDRD) 137 (>89) 01/26/22 04:20 Glucose 154 mg/dL (70-100) H 01/26/22 04:20 Estimat Average Glucose 111 mg/dL (70-100) H 01/26/22 04:20 Hemoglobin A1c % 5.5 % (4.27-6.07) 01/26/22 04:20 Calcium 9.0 mg/dL (8.5-10.3) 01/26/22 04:20 Phosphorus 3.6 mg/dL (2.5-4.6) 12/06/21 07:04 Magnesium 2.0 mg/dL (1.7-2.8) 12/06/21 07:04 Total Bilirubin 0.5 mg/dL (0.2-1.0) 01/26/22 04:20 Direct Bilirubin 0.1 mg/dL (0.1-0.5) 01/26/22 04:20 AST 77 IU/L (10-42) H 01/26/22 04:20 ALT 104 IU/L (10-60) H 01/26/22 04:20 Alkaline Phosphatase 58 IU/L (42-121) 01/26/22 04:20 Ammonia 12.5 umol/L (7-35) 12/08/21 07:54 Total Protein 6.4 g/dL (6.7-8.2) L 01/26/22 04:20 Albumin 3.6 g/dL (3.2-5.5) 01/26/22 04:20 Globulin 2.8 g/dL (2.1-4.2) 01/26/22 04:20 Albumin/Globulin Ratio 1.1 (1.0-2.2) 12/12/21 08:07 Lipase 28 U/L (22-51) 12/06/21 07:04 Whole Bld Vitamin B1 TNP 12/04/21 16:52 Vitamin B12 317 pg/mL (180-914) 01/26/22 04:20 Folate 20.49 ng/mL (5.90 - >24.8) 01/26/22 04:20 TSH 1.25 uIU/mL (0.34-5.60) 12/03/21 18:20 Urine Color YELLOW 12/03/21 18:26 Urine Clarity CLEAR (CLEAR) 12/03/21 18:26 Urine pH 6.5 PH (5.0-7.5) 12/03/21 18:26 Ur Specific [place] 1.020 (1.002-1.030) 12/03/21 18:26 Urine Protein NEGATIVE mg/dL (NEGATIVE) 12/03/21 18:26 Urine Glucose (UA) NEGATIVE mg/dL (NEGATIVE) 12/03/21 18:26 Urine Ketones NEGATIVE mg/dL (NEGATIVE) 12/03/21 18:26 Urine Occult Blood NEGATIVE (NEGATIVE) 12/03/21 18:26 Urine Nitrite NEGATIVE (NEGATIVE) 12/03/21 18:26 Urine Bilirubin NEGATIVE (NEGATIVE) 12/03/21 18:26 Urine Urobilinogen 0.2 (NORMAL) E.U./dL (NORMAL) 12/03/21 18:26 Ur Leukocyte Esterase NEGATIVE (NEGATIVE) 12/03/21 18:26 Ur Microscopic Review NOT INDICATED 12/03/21 18:26 Urine Culture Comments NOT INDICATED 12/03/21 18:26 Nasal Adenovirus (PCR) NOT DETECTED 12/20/21 19:10 Nasal B. parapertussis DNA (PCR) NOT DETECTED 12/20/21 19:10 Nasal Coronavir 229E PCR NOT DETECTED 12/20/21 19:10 Nasal Coronavir HKU1 PCR NOT DETECTED 12/20/21 19:10 Nasal Coronavir NL63 PCR NOT DETECTED 12/20/21 19:10 Nasal Coronavir OC43 PCR NOT DETECTED 12/20/21 19:10 Nasal Enterovir/Rhinovir PCR NOT DETECTED 12/20/21 19:10 Nasal Influenza B PCR NOT DETECTED 12/20/21 19:10 Nasal Influenza A PCR NOT DETECTED 12/20/21 19:10 Nasal Parainfluen 1 PCR NOT DETECTED 12/20/21 19:10 Nasal Parainfluen 2 PCR NOT DETECTED 12/20/21 19:10 Nasal Parainfluen 3 PCR NOT DETECTED 12/20/21 19:10 Nasal Parainfluen 4 PCR NOT DETECTED 12/20/21 19:10 Nasal RSV (PCR) NOT DETECTED 12/20/21 19:10 Nasal B.pertussis DNA PCR NOT DETECTED 12/20/21 19:10 Nasal C.pneumoniae (PCR) NOT DETECTED 12/20/21 19:10 Juan Daniel Human Metapneumo PCR NOT DETECTED 12/20/21 19:10 Nasal M.pneumoniae (PCR) NOT DETECTED 12/20/21 19:10 Nasal SARS-CoV-2 (PCR) DETECTED A 12/20/21 19:10 Salicylates < 6.0 mg/dL 12/03/21 18:20 Urine Opiates Screen NEGATIVE (NEGATIVE) 12/03/21 18:26 Ur Oxycodone Screen NEGATIVE (NEGATIVE) 12/03/21 18:26 Urine Methadone Screen NEGATIVE (NEGATIVE) 12/03/21 18:26 Ur Propoxyphene Screen NEGATIVE (NEGATIVE) 12/03/21 18:26 Acetaminophen < 10 ug/mL (10-30) L 12/03/21 18:20 Ur Barbiturates Screen NEGATIVE (NEGATIVE) 12/03/21 18:26 Ur Tricyclics Screen NEGATIVE (NEGATIVE) 12/03/21 18:26 Ur Phencyclidine Scrn NEGATIVE (NEGATIVE) 12/03/21 18:26 Ur Amphetamine Screen NEGATIVE (NEGATIVE) 12/03/21 18:26 U Methamphetamines Scrn NEGATIVE (NEGATIVE) 12/03/21 18:26 U Benzodiazepines Scrn POSITIVE (NEGATIVE) H 12/03/21 18:26 Urine Cocaine Screen NEGATIVE (NEGATIVE) 12/03/21 18:26 U Cannabinoids Screen NEGATIVE (NEGATIVE) 12/03/21 18:26 Ethyl Alcohol < 5.0 mg/dL 12/03/21 18:20 Sepsis Event Note (H) - Evaluation Current Stage of Sepsis: Ruled out ABX Reporting Has patient been on IV antibiotics over the past 48 hours?: No
[2022-02-02] MEDS: MULTIVITAMIN TABLET PO SCH (08:10)
[2022-02-02] MEDS: MAGNESIUM OXIDE 400 MG TABLET PO SCH (08:10)
[2022-02-02] MEDS: NICOTINE 7 MG PATCH TOP SCH (08:10)
[2022-02-02] MEDS: THIAMINE 100 MG TABLET PO SCH (08:10)
[2022-02-02] MEDS: polyethylene glycoL 3350 17 GM PACKET PO SCH (08:11)
--- NOTE | 2022-02-02 19:48 | PROVIDER PROGRESS NOTE ---
Assessment/Plan - Problem List (1) Metabolic encephalopathy Assessment/Plan: Patient has history of chronic alcohol abuse. He had a formal evaluation by telepsych on December 07 2021. He cannot make decisions for himself. He needs a guardian and will also need permanent placement. Daughter is not able to to accommodate the patient at her house due to behavioral disturbances on his part and she has a little child at home. Continue vitamin B1 100 mg p.o. daily. (3) Alcohol abuse Assessment/Plan: Patient has not had any alcoholic beverage throughout this time in the hospital. (4) COVID-19 Assessment/Plan: This was diagnosed on 12/03/2021. Patient is currently asymptomatic and breathing comfortably on room air Repeat Covid test on 12/20/2021 was positive. Patient is now out of isolation (5) Homeless single person Assessment/Plan: Social work helping to facilitate placement. This has been particularly difficult due to some behavioral problems. - Current Meds Current Meds: Current Medications Generic Name Dose Route Start Last Admin Trade Name Lazaroq PRN Reason Stop Dose Admin Docusate Sodium 250 - 500 mg 12/22/21 07:23 01/10/22 08:12 Docusate Sodium 250 Mg Capsule PO 250 mg DAILY PRN Administration Constipation Magnesium Oxide 400 mg 12/05/21 09:00 02/02/22 08:10 Magnesium Oxide 400 Mg Tablet PO 400 mg DAILY MARY Administration Multivitamins 1 tab 12/05/21 09:00 02/02/22 08:10 Multivitamin Tablet PO 1 tab DAILY MARY Administration Nicotine 1 patch 01/03/22 09:00 02/02/22 08:10 Nicotine 7 Mg Patch TOP 1 patch DAILY MARY Administration Polyethylene Glycol 17 gm 12/09/21 14:00 02/02/22 08:11 Polyethylene Glycol 3350 17 Gm Packet PO Not Given DAILY MARY Senna 8.6 - 17.2 mg 12/22/21 07:23 01/10/22 08:12 Senna 8.6 Mg Tablet PO 8.6 mg DAILY PRN Administration Constipation Thiamine HCl 100 mg 12/04/21 09:00 02/02/22 08:10 Thiamine 100 Mg Tablet PO 100 mg DAILY MARY Administration - Lab Result Fish Bone Diagrams: 01/26/22 04:20 01/26/22 04:20 Subjective - Subjective Patient Reports: Feeling Better, No Complaints Objective Vital Signs: Vital Signs - 24 hr 02/02/22 09:00 Temperature 36.5 C Heart Rate [ 80 Radial] Respiratory 18 Rate Blood Pressure 132/90 H [Right Brachial artery] O2 Saturation 96 Oxygen O2 Source Room air I&O (Last 24 Hrs): Intake and Output Totals x24h 01/31/22 02/01/22 02/02/22 23:59 23:59 23:59 Intake Total 2816 2876 1680 Balance 2816 2876 1680 General: Alert HEENT: Mucous membr. moist/pink Neck: Supple Neuro: Alert, Non Focal, Other (Poor memory) Cardiovascular: Regular rate Respiratory: No respiratory distress Abdomen: Soft Extremities: No edema - Results Results: Laboratory Results WBC 5.3 x10^3/uL (4.8-10.8) 01/26/22 04:20 RBC 4.39 10^6/uL (4.70-6.10) L 01/26/22 04:20 Hgb 13.6 g/dL (14.0-18.0) L 01/26/22 04:20 Hct 41.1 % (42.0-52.0) L 01/26/22 04:20 MCV 93.6 fL (80.0-94.0) 01/26/22 04:20 MCH 31.0 pg (27.0-31.0) 01/26/22 04:20 MCHC 33.1 g/dL (32.0-36.0) 01/26/22 04:20 RDW 13.2 % (12.0-15.0) 01/26/22 04:20 Plt Count 131 10^3/uL (130-450) 01/26/22 04:20 MPV 12.8 fL (7.4-11.4) H 01/26/22 04:20 Neut # (Auto) 2.5 10^3/uL (1.5-6.6) 01/26/22 04:20 Lymph # (Auto) 1.8 10^3/uL (1.5-3.5) 01/26/22 04:20 [place] # (Auto) 0.6 10^3/uL (0.0-1.0) 01/26/22 04:20 Eos # (Auto) 0.2 10^3/uL (0.0-0.7) 01/26/22 04:20 Baso # (Auto) 0.1 10^3/uL (0.0-0.1) 01/26/22 04:20 Absolute Nucleated RBC 0.00 x10^3/uL 01/26/22 04:20 Nucleated RBC % 0.0 /100WBC 01/26/22 04:20 PT 15.1 secs (9.9-12.6) H 12/04/21 23:33 INR 1.4 (0.8-1.2) H 12/04/21 23:33 APTT 24.8 secs (24.9-33.3) L 12/03/21 18:20 Sodium 139 mmol/L (135-145) 01/26/22 04:20 Potassium 4.0 mmol/L (3.5-5.0) 01/26/22 04:20 Chloride 104 mmol/L (101-111) 01/26/22 04:20 Carbon Dioxide 25 mmol/L (21-32) 01/26/22 04:20 Anion Gap 10.0 (6-13) 01/26/22 04:20 BUN 17 mg/dL (6-20) 01/26/22 04:20 Creatinine 0.6 mg/dL (0.6-1.2) 01/26/22 04:20 Estimated GFR (MDRD) 137 (>89) 01/26/22 04:20 Glucose 154 mg/dL (70-100) H 01/26/22 04:20 Estimat Average Glucose 111 mg/dL (70-100) H 01/26/22 04:20 Hemoglobin A1c % 5.5 % (4.27-6.07) 01/26/22 04:20 Calcium 9.0 mg/dL (8.5-10.3) 01/26/22 04:20 Phosphorus 3.6 mg/dL (2.5-4.6) 12/06/21 07:04 Magnesium 2.0 mg/dL (1.7-2.8) 12/06/21 07:04 Total Bilirubin 0.5 mg/dL (0.2-1.0) 01/26/22 04:20 Direct Bilirubin 0.1 mg/dL (0.1-0.5) 01/26/22 04:20 AST 77 IU/L (10-42) H 01/26/22 04:20 ALT 104 IU/L (10-60) H 01/26/22 04:20 Alkaline Phosphatase 58 IU/L (42-121) 01/26/22 04:20 Ammonia 12.5 umol/L (7-35) 12/08/21 07:54 Total Protein 6.4 g/dL (6.7-8.2) L 01/26/22 04:20 Albumin 3.6 g/dL (3.2-5.5) 01/26/22 04:20 Globulin 2.8 g/dL (2.1-4.2) 01/26/22 04:20 Albumin/Globulin Ratio 1.1 (1.0-2.2) 12/12/21 08:07 Lipase 28 U/L (22-51) 12/06/21 07:04 Whole Bld Vitamin B1 TNP 12/04/21 16:52 Vitamin B12 317 pg/mL (180-914) 01/26/22 04:20 Folate 20.49 ng/mL (5.90 - >24.8) 01/26/22 04:20 TSH 1.25 uIU/mL (0.34-5.60) 12/03/21 18:20 Urine Color YELLOW 12/03/21 18:26 Urine Clarity CLEAR (CLEAR) 12/03/21 18:26 Urine pH 6.5 PH (5.0-7.5) 12/03/21 18:26 Ur Specific [place] 1.020 (1.002-1.030) 12/03/21 18:26 Urine Protein NEGATIVE mg/dL (NEGATIVE) 12/03/21 18:26 Urine Glucose (UA) NEGATIVE mg/dL (NEGATIVE) 12/03/21 18:26 Urine Ketones NEGATIVE mg/dL (NEGATIVE) 12/03/21 18:26 Urine Occult Blood NEGATIVE (NEGATIVE) 12/03/21 18:26 Urine Nitrite NEGATIVE (NEGATIVE) 12/03/21 18:26 Urine Bilirubin NEGATIVE (NEGATIVE) 12/03/21 18:26 Urine Urobilinogen 0.2 (NORMAL) E.U./dL (NORMAL) 12/03/21 18:26 Ur Leukocyte Esterase NEGATIVE (NEGATIVE) 12/03/21 18:26 Ur Microscopic Review NOT INDICATED 12/03/21 18:26 Urine Culture Comments NOT INDICATED 12/03/21 18:26 Nasal Adenovirus (PCR) NOT DETECTED 12/20/21 19:10 Nasal B. parapertussis DNA (PCR) NOT DETECTED 12/20/21 19:10 Nasal Coronavir 229E PCR NOT DETECTED 12/20/21 19:10 Nasal Coronavir HKU1 PCR NOT DETECTED 12/20/21 19:10 Nasal Coronavir NL63 PCR NOT DETECTED 12/20/21 19:10 Nasal Coronavir OC43 PCR NOT DETECTED 12/20/21 19:10 Nasal Enterovir/Rhinovir PCR NOT DETECTED 12/20/21 19:10 Nasal Influenza B PCR NOT DETECTED 12/20/21 19:10 Nasal Influenza A PCR NOT DETECTED 12/20/21 19:10 Nasal Parainfluen 1 PCR NOT DETECTED 12/20/21 19:10 Nasal Parainfluen 2 PCR NOT DETECTED 12/20/21 19:10 Nasal Parainfluen 3 PCR NOT DETECTED 12/20/21 19:10 Nasal Parainfluen 4 PCR NOT DETECTED 12/20/21 19:10 Nasal RSV (PCR) NOT DETECTED 12/20/21 19:10 Nasal B.pertussis DNA PCR NOT DETECTED 12/20/21 19:10 Nasal C.pneumoniae (PCR) NOT DETECTED 12/20/21 19:10 Juan Daniel Human Metapneumo PCR NOT DETECTED 12/20/21 19:10 Nasal M.pneumoniae (PCR) NOT DETECTED 12/20/21 19:10 Nasal SARS-CoV-2 (PCR) DETECTED A 12/20/21 19:10 Salicylates < 6.0 mg/dL 12/03/21 18:20 Urine Opiates Screen NEGATIVE (NEGATIVE) 12/03/21 18:26 Ur Oxycodone Screen NEGATIVE (NEGATIVE) 12/03/21 18:26 Urine Methadone Screen NEGATIVE (NEGATIVE) 12/03/21 18:26 Ur Propoxyphene Screen NEGATIVE (NEGATIVE) 12/03/21 18:26 Acetaminophen < 10 ug/mL (10-30) L 12/03/21 18:20 Ur Barbiturates Screen NEGATIVE (NEGATIVE) 12/03/21 18:26 Ur Tricyclics Screen NEGATIVE (NEGATIVE) 12/03/21 18:26 Ur Phencyclidine Scrn NEGATIVE (NEGATIVE) 12/03/21 18:26 Ur Amphetamine Screen NEGATIVE (NEGATIVE) 12/03/21 18:26 U Methamphetamines Scrn NEGATIVE (NEGATIVE) 12/03/21 18:26 U Benzodiazepines Scrn POSITIVE (NEGATIVE) H 12/03/21 18:26 Urine Cocaine Screen NEGATIVE (NEGATIVE) 12/03/21 18:26 U Cannabinoids Screen NEGATIVE (NEGATIVE) 12/03/21 18:26 Ethyl Alcohol < 5.0 mg/dL 12/03/21 18:20 Sepsis Event Note (H) - Evaluation Current Stage of Sepsis: Ruled out
--- NOTE | 2022-02-03 12:28 | PROVIDER PROGRESS NOTE ---
Assessment/Plan - Problem List (1) Wernicke-Korsakoff syndrome (alcoholic) Assessment/Plan: 02/03 pt ate his breakfast, walk at hallway and stable. continue disposition planning for pt by social media sr strategy manager 01/30 pt is stable, pt walk at hallway. we will hold Seroquel on today per tele psychiatrist's recommendation, continue disposition planning 01/29 continue improvement. today is pt's birthday. we have birthday green party for pt. pt is smile and has appropriate conversations with us. pt had tele psychiatrist on 01/27/22. Per tele psychiatrist's recommendations, Haldol and Zyprexa was already hold, pt will have 25mg Seroquel on today, then will be hold as well. pt tolerate these waned off medications (2) COVID-19 Impression: This is now resolved. pt has no respiratory distress. He is off of contact precautions. (3) Homeless single person Impression: Continuing to work on disposition. We appreciate social work input, and disposition planning. (4) Alcohol abuse Impression: He initially went through alcohol withdrawal but this is now resolved. We are continuing thiamine supplementation daily. - Current Meds Current Meds: Current Medications Generic Name Dose Route Start Last Admin Trade Name Freq PRN Reason Stop Dose Admin Docusate Sodium 250 - 500 mg 12/22/21 07:23 01/10/22 08:12 Docusate Sodium 250 Mg Capsule PO 250 mg DAILY PRN Administration Constipation Magnesium Oxide 400 mg 12/05/21 09:00 02/02/22 08:10 Magnesium Oxide 400 Mg Tablet PO 400 mg DAILY MARY Administration Multivitamins 1 tab 12/05/21 09:00 02/02/22 08:10 Multivitamin Tablet PO 1 tab DAILY MARY Administration Nicotine 1 patch 01/03/22 09:00 02/02/22 08:10 Nicotine 7 Mg Patch TOP 1 patch DAILY MARY Administration Polyethylene Glycol 17 gm 12/09/21 14:00 02/02/22 08:11 Polyethylene Glycol 3350 17 Gm Packet PO Not Given DAILY MARY Senna 8.6 - 17.2 mg 12/22/21 07:23 01/10/22 08:12 Senna 8.6 Mg Tablet PO 8.6 mg DAILY PRN Administration Constipation Thiamine HCl 100 mg 12/04/21 09:00 02/02/22 08:10 Thiamine 100 Mg Tablet PO 100 mg DAILY MARY Administration - Lab Result Fish Bone Diagrams: 01/26/22 04:20 01/26/22 04:20 Subjective - Subjective Patient Reports: Resting Comfortably, No Complaints Objective Vital Signs: Vital Signs - 24 hr 02/03/22 08:31 Temperature 36.3 C L Heart Rate [ 80 Brachial] Respiratory 16 Rate Blood Pressure 123/81 H [Right Brachial artery] O2 Saturation 96 Oxygen O2 Source Room air I&O (Last 24 Hrs): Intake and Output Totals x24h 02/01/22 02/02/22 02/03/22 23:59 23:59 23:59 Intake Total 2876 2660 480 Balance 2876 2660 480 General: Alert, Oriented x3, Cooperative, No acute distress HEENT: Atraumatic Neck: Supple Lymphatic: no adenopathy Neuro: Alert, Non Focal, Oriented Times 3 Cardiovascular: Regular rate, Normal S1, Normal S2 Respiratory: Chest non-tender, No respiratory distress Abdomen: Normal bowel sounds, Soft Extremities: Normal pulses - Results Results: Laboratory Results WBC 5.3 x10^3/uL (4.8-10.8) 01/26/22 04:20 RBC 4.39 10^6/uL (4.70-6.10) L 01/26/22 04:20 Hgb 13.6 g/dL (14.0-18.0) L 01/26/22 04:20 Hct 41.1 % (42.0-52.0) L 01/26/22 04:20 MCV 93.6 fL (80.0-94.0) 01/26/22 04:20 MCH 31.0 pg (27.0-31.0) 01/26/22 04:20 MCHC 33.1 g/dL (32.0-36.0) 01/26/22 04:20 RDW 13.2 % (12.0-15.0) 01/26/22 04:20 Plt Count 131 10^3/uL (130-450) 01/26/22 04:20 MPV 12.8 fL (7.4-11.4) H 01/26/22 04:20 Neut # (Auto) 2.5 10^3/uL (1.5-6.6) 01/26/22 04:20 Lymph # (Auto) 1.8 10^3/uL (1.5-3.5) 01/26/22 04:20 [place] # (Auto) 0.6 10^3/uL (0.0-1.0) 01/26/22 04:20 Eos # (Auto) 0.2 10^3/uL (0.0-0.7) 01/26/22 04:20 Baso # (Auto) 0.1 10^3/uL (0.0-0.1) 01/26/22 04:20 Absolute Nucleated RBC 0.00 x10^3/uL 01/26/22 04:20 Nucleated RBC % 0.0 /100WBC 01/26/22 04:20 PT 15.1 secs (9.9-12.6) H 12/04/21 23:33 INR 1.4 (0.8-1.2) H 12/04/21 23:33 APTT 24.8 secs (24.9-33.3) L 12/03/21 18:20 Sodium 139 mmol/L (135-145) 01/26/22 04:20 Potassium 4.0 mmol/L (3.5-5.0) 01/26/22 04:20 Chloride 104 mmol/L (101-111) 01/26/22 04:20 Carbon Dioxide 25 mmol/L (21-32) 01/26/22 04:20 Anion Gap 10.0 (6-13) 01/26/22 04:20 BUN 17 mg/dL (6-20) 01/26/22 04:20 Creatinine 0.6 mg/dL (0.6-1.2) 01/26/22 04:20 Estimated GFR (MDRD) 137 (>89) 01/26/22 04:20 Glucose 154 mg/dL (70-100) H 01/26/22 04:20 Estimat Average Glucose 111 mg/dL (70-100) H 01/26/22 04:20 Hemoglobin A1c % 5.5 % (4.27-6.07) 01/26/22 04:20 Calcium 9.0 mg/dL (8.5-10.3) 01/26/22 04:20 Phosphorus 3.6 mg/dL (2.5-4.6) 12/06/21 07:04 Magnesium 2.0 mg/dL (1.7-2.8) 12/06/21 07:04 Total Bilirubin 0.5 mg/dL (0.2-1.0) 01/26/22 04:20 Direct Bilirubin 0.1 mg/dL (0.1-0.5) 01/26/22 04:20 AST 77 IU/L (10-42) H 01/26/22 04:20 ALT 104 IU/L (10-60) H 01/26/22 04:20 Alkaline Phosphatase 58 IU/L (42-121) 01/26/22 04:20 Ammonia 12.5 umol/L (7-35) 12/08/21 07:54 Total Protein 6.4 g/dL (6.7-8.2) L 01/26/22 04:20 Albumin 3.6 g/dL (3.2-5.5) 01/26/22 04:20 Globulin 2.8 g/dL (2.1-4.2) 01/26/22 04:20 Albumin/Globulin Ratio 1.1 (1.0-2.2) 12/12/21 08:07 Lipase 28 U/L (22-51) 12/06/21 07:04 Whole Bld Vitamin B1 TNP 12/04/21 16:52 Vitamin B12 317 pg/mL (180-914) 01/26/22 04:20 Folate 20.49 ng/mL (5.90 - >24.8) 01/26/22 04:20 TSH 1.25 uIU/mL (0.34-5.60) 12/03/21 18:20 Urine Color YELLOW 12/03/21 18:26 Urine Clarity CLEAR (CLEAR) 12/03/21 18:26 Urine pH 6.5 PH (5.0-7.5) 12/03/21 18:26 Ur Specific [place] 1.020 (1.002-1.030) 12/03/21 18:26 Urine Protein NEGATIVE mg/dL (NEGATIVE) 12/03/21 18:26 Urine Glucose (UA) NEGATIVE mg/dL (NEGATIVE) 12/03/21 18:26 Urine Ketones NEGATIVE mg/dL (NEGATIVE) 12/03/21 18:26 Urine Occult Blood NEGATIVE (NEGATIVE) 12/03/21 18:26 Urine Nitrite NEGATIVE (NEGATIVE) 12/03/21 18:26 Urine Bilirubin NEGATIVE (NEGATIVE) 12/03/21 18:26 Urine Urobilinogen 0.2 (NORMAL) E.U./dL (NORMAL) 12/03/21 18:26 Ur Leukocyte Esterase NEGATIVE (NEGATIVE) 12/03/21 18:26 Ur Microscopic Review NOT INDICATED 12/03/21 18:26 Urine Culture Comments NOT INDICATED 12/03/21 18:26 Nasal Adenovirus (PCR) NOT DETECTED 12/20/21 19:10 Nasal B. parapertussis DNA (PCR) NOT DETECTED 12/20/21 19:10 Nasal Coronavir 229E PCR NOT DETECTED 12/20/21 19:10 Nasal Coronavir HKU1 PCR NOT DETECTED 12/20/21 19:10 Nasal Coronavir NL63 PCR NOT DETECTED 12/20/21 19:10 Nasal Coronavir OC43 PCR NOT DETECTED 12/20/21 19:10 Nasal Enterovir/Rhinovir PCR NOT DETECTED 12/20/21 19:10 Nasal Influenza B PCR NOT DETECTED 12/20/21 19:10 Nasal Influenza A PCR NOT DETECTED 12/20/21 19:10 Nasal Parainfluen 1 PCR NOT DETECTED 12/20/21 19:10 Nasal Parainfluen 2 PCR NOT DETECTED 12/20/21 19:10 Nasal Parainfluen 3 PCR NOT DETECTED 12/20/21 19:10 Nasal Parainfluen 4 PCR NOT DETECTED 12/20/21 19:10 Nasal RSV (PCR) NOT DETECTED 12/20/21 19:10 Nasal B.pertussis DNA PCR NOT DETECTED 12/20/21 19:10 Nasal C.pneumoniae (PCR) NOT DETECTED 12/20/21 19:10 [place] Human Metapneumo PCR NOT DETECTED 12/20/21 19:10 Nasal M.pneumoniae (PCR) NOT DETECTED 12/20/21 19:10 Nasal SARS-CoV-2 (PCR) DETECTED A 12/20/21 19:10 Salicylates < 6.0 mg/dL 12/03/21 18:20 Urine Opiates Screen NEGATIVE (NEGATIVE) 12/03/21 18:26 Ur Oxycodone Screen NEGATIVE (NEGATIVE) 12/03/21 18:26 Urine Methadone Screen NEGATIVE (NEGATIVE) 12/03/21 18:26 Ur Propoxyphene Screen NEGATIVE (NEGATIVE) 12/03/21 18:26 Acetaminophen < 10 ug/mL (10-30) L 12/03/21 18:20 Ur Barbiturates Screen NEGATIVE (NEGATIVE) 12/03/21 18:26 Ur Tricyclics Screen NEGATIVE (NEGATIVE) 12/03/21 18:26 Ur Phencyclidine Scrn NEGATIVE (NEGATIVE) 12/03/21 18:26 Ur Amphetamine Screen NEGATIVE (NEGATIVE) 12/03/21 18:26 U Methamphetamines Scrn NEGATIVE (NEGATIVE) 12/03/21 18:26 U Benzodiazepines Scrn POSITIVE (NEGATIVE) H 12/03/21 18:26 Urine Cocaine Screen NEGATIVE (NEGATIVE) 12/03/21 18:26 U Cannabinoids Screen NEGATIVE (NEGATIVE) 12/03/21 18:26 Ethyl Alcohol < 5.0 mg/dL 12/03/21 18:20 Sepsis Event Note (H) - Evaluation Current Stage of Sepsis: Ruled out ABX Reporting Has patient been on IV antibiotics over the past 48 hours?: No Current Medications - Current Medications Current Medications: Active Medications Docusate Sodium (Docusate Sodium 250 Mg Capsule) 250 - 500 mg PO DAILY PRN PRN Reason: Constipation Last Admin: 01/10/22 08:12 Dose: 250 mg Ibuprofen (Ibuprofen 400 Mg Tablet) 400 mg PO Q6HR PRN PRN Reason: Pain or Fever > 38C (100.4F) Magnesium Oxide (Magnesium Oxide 400 Mg Tablet) 400 mg PO DAILY [facility] Last Admin: 02/02/22 08:10 Dose: 400 mg Multivitamins (Multivitamin Tablet) 1 tab PO DAILY [facility] Last Admin: 02/02/22 08:10 Dose: 1 tab Nicotine (Nicotine 7 Mg Patch) 1 patch TOP DAILY [facility] Last Admin: 02/02/22 08:10 Dose: 1 patch Polyethylene Glycol (Polyethylene Glycol 3350 17 Gm Packet) 17 gm PO DAILY [facility] Last Admin: 02/02/22 08:11 Dose: Not Given Senna (Senna 8.6 Mg Tablet) 8.6 - 17.2 mg PO DAILY PRN PRN Reason: Constipation Last Admin: 01/10/22 08:12 Dose: 8.6 mg Thiamine HCl (Thiamine 100 Mg Tablet) 100 mg PO DAILY [facility] Last Admin: 02/02/22 08:10 Dose: 100 mg Magnesium Oxide [Mag Ox] 400 mg PO DAILY 12/01/21 Multivitamin [Theragran] 1 each PO DAILY 12/01/21
[2022-02-03] MEDS: THIAMINE 100 MG TABLET PO SCH (17:06)
[2022-02-03] MEDS: polyethylene glycoL 3350 17 GM PACKET PO SCH (17:07)
[2022-02-03] MEDS: NICOTINE 7 MG PATCH TOP SCH (17:07)
[2022-02-03] MEDS: MULTIVITAMIN TABLET PO SCH (17:07)
[2022-02-03] MEDS: MAGNESIUM OXIDE 400 MG TABLET PO SCH (17:07)
[2022-02-04] MEDS: MAGNESIUM OXIDE 400 MG TABLET PO SCH (08:53)
[2022-02-04] MEDS: MULTIVITAMIN TABLET PO SCH (08:53)
[2022-02-04] MEDS: NICOTINE 7 MG PATCH TOP SCH (08:53)
[2022-02-04] MEDS: polyethylene glycoL 3350 17 GM PACKET PO SCH (08:57)
[2022-02-04] MEDS: THIAMINE 100 MG TABLET PO SCH (08:58)
--- NOTE | 2022-02-04 10:47 | PROVIDER PROGRESS NOTE ---
Assessment/Plan - Problem List (1) Wernicke-Korsakoff syndrome (alcoholic) Assessment/Plan: 02/04 pt has no complaints, he is stable, he is waiting for disposition. 02/03 pt ate his breakfast, walk at hallway and stable. continue disposition planning for pt by dialysis social worker 01/30 pt is stable, pt walk at hallway. we will hold Seroquel on today per tele psychiatrist's recommendation, continue disposition planning 01/29 continue improvement. today is pt's birthday. we have birthday constitution party for pt. pt is smile and has appropriate conversations with us. pt had tele psychiatrist on 01/27/22. Per tele psychiatrist's recommendations, Haldol and Zyprexa was already hold, pt will have 25mg Seroquel on today, then will be hold as well. pt tolerate these waned off medications (2) COVID-19 Impression: This is now resolved. pt has no respiratory distress. He is off of contact precautions. (3) Homeless single person Impression: Continuing to work on disposition. We appreciate social work input, and disposition planning. (4) Alcohol abuse Impression: He initially went through alcohol withdrawal but this is now resolved. We are continuing thiamine supplementation daily. - Current Meds Current Meds: Current Medications Generic Name Dose Route Start Last Admin Trade Name [place] PRN Reason Stop Dose Admin Docusate Sodium 250 - 500 mg 12/22/21 07:23 01/10/22 08:12 Docusate Sodium 250 Mg Capsule PO 250 mg DAILY PRN Administration Constipation Magnesium Oxide 400 mg 12/05/21 09:00 02/04/22 08:53 Magnesium Oxide 400 Mg Tablet PO 400 mg DAILY MARY Administration Multivitamins 1 tab 12/05/21 09:00 02/04/22 08:53 Multivitamin Tablet PO 1 tab DAILY MARY Administration Nicotine 1 patch 01/03/22 09:00 02/04/22 08:53 Nicotine 7 Mg Patch TOP 1 patch DAILY MARY Administration Polyethylene Glycol 17 gm 12/09/21 14:00 02/04/22 08:57 Polyethylene Glycol 3350 17 Gm Packet PO Not Given DAILY MARY Senna 8.6 - 17.2 mg 12/22/21 07:23 01/10/22 08:12 Senna 8.6 Mg Tablet PO 8.6 mg DAILY PRN Administration Constipation Thiamine HCl 100 mg 12/04/21 09:00 02/04/22 08:58 Thiamine 100 Mg Tablet PO 100 mg DAILY MARY Administration - Lab Result Fish Bone Diagrams: 01/26/22 04:20 01/26/22 04:20 Subjective - Subjective Patient Reports: Resting Comfortably Objective Vital Signs: Vital Signs - 24 hr 02/04/22 07:32 Temperature 36.5 C Heart Rate [ 85 Brachial] Respiratory 16 Rate Blood Pressure 115/76 [Right Brachial artery] O2 Saturation 93 Oxygen O2 Source Room air I&O (Last 24 Hrs): Intake and Output Totals x24h 02/02/22 02/03/22 02/04/22 23:59 23:59 23:59 Intake Total 2660 1320 1200 Balance 2660 1320 1200 General: Alert, Oriented x3, Cooperative, No acute distress HEENT: Atraumatic Neck: Supple Lymphatic: no adenopathy Neuro: Alert, Non Focal, Oriented Times 3 Cardiovascular: Regular rate, Normal S1, Normal S2 Respiratory: Chest non-tender, No respiratory distress Abdomen: Normal bowel sounds, Soft Extremities: Normal pulses - Results Results: Laboratory Results WBC 5.3 x10^3/uL (4.8-10.8) 01/26/22 04:20 RBC 4.39 10^6/uL (4.70-6.10) L 01/26/22 04:20 Hgb 13.6 g/dL (14.0-18.0) L 01/26/22 04:20 Hct 41.1 % (42.0-52.0) L 01/26/22 04:20 MCV 93.6 fL (80.0-94.0) 01/26/22 04:20 MCH 31.0 pg (27.0-31.0) 01/26/22 04:20 MCHC 33.1 g/dL (32.0-36.0) 01/26/22 04:20 RDW 13.2 % (12.0-15.0) 01/26/22 04:20 Plt Count 131 10^3/uL (130-450) 01/26/22 04:20 MPV 12.8 fL (7.4-11.4) H 01/26/22 04:20 Neut # (Auto) 2.5 10^3/uL (1.5-6.6) 01/26/22 04:20 Lymph # (Auto) 1.8 10^3/uL (1.5-3.5) 01/26/22 04:20 [place] # (Auto) 0.6 10^3/uL (0.0-1.0) 01/26/22 04:20 Eos # (Auto) 0.2 10^3/uL (0.0-0.7) 01/26/22 04:20 Baso # (Auto) 0.1 10^3/uL (0.0-0.1) 01/26/22 04:20 Absolute Nucleated RBC 0.00 x10^3/uL 01/26/22 04:20 Nucleated RBC % 0.0 /100WBC 01/26/22 04:20 PT 15.1 secs (9.9-12.6) H 12/04/21 23:33 INR 1.4 (0.8-1.2) H 12/04/21 23:33 APTT 24.8 secs (24.9-33.3) L 12/03/21 18:20 Sodium 139 mmol/L (135-145) 01/26/22 04:20 Potassium 4.0 mmol/L (3.5-5.0) 01/26/22 04:20 Chloride 104 mmol/L (101-111) 01/26/22 04:20 Carbon Dioxide 25 mmol/L (21-32) 01/26/22 04:20 Anion Gap 10.0 (6-13) 01/26/22 04:20 BUN 17 mg/dL (6-20) 01/26/22 04:20 Creatinine 0.6 mg/dL (0.6-1.2) 01/26/22 04:20 Estimated GFR (MDRD) 137 (>89) 01/26/22 04:20 Glucose 154 mg/dL (70-100) H 01/26/22 04:20 Estimat Average Glucose 111 mg/dL (70-100) H 01/26/22 04:20 Hemoglobin A1c % 5.5 % (4.27-6.07) 01/26/22 04:20 Calcium 9.0 mg/dL (8.5-10.3) 01/26/22 04:20 Phosphorus 3.6 mg/dL (2.5-4.6) 12/06/21 07:04 Magnesium 2.0 mg/dL (1.7-2.8) 12/06/21 07:04 Total Bilirubin 0.5 mg/dL (0.2-1.0) 01/26/22 04:20 Direct Bilirubin 0.1 mg/dL (0.1-0.5) 01/26/22 04:20 AST 77 IU/L (10-42) H 01/26/22 04:20 ALT 104 IU/L (10-60) H 01/26/22 04:20 Alkaline Phosphatase 58 IU/L (42-121) 01/26/22 04:20 Ammonia 12.5 umol/L (7-35) 12/08/21 07:54 Total Protein 6.4 g/dL (6.7-8.2) L 01/26/22 04:20 Albumin 3.6 g/dL (3.2-5.5) 01/26/22 04:20 Globulin 2.8 g/dL (2.1-4.2) 01/26/22 04:20 Albumin/Globulin Ratio 1.1 (1.0-2.2) 12/12/21 08:07 Lipase 28 U/L (22-51) 12/06/21 07:04 Whole Bld Vitamin B1 TNP 12/04/21 16:52 Vitamin B12 317 pg/mL (180-914) 01/26/22 04:20 Folate 20.49 ng/mL (5.90 - >24.8) 01/26/22 04:20 TSH 1.25 uIU/mL (0.34-5.60) 12/03/21 18:20 Urine Color YELLOW 12/03/21 18:26 Urine Clarity CLEAR (CLEAR) 12/03/21 18:26 Urine pH 6.5 PH (5.0-7.5) 12/03/21 18:26 Ur Specific [place] 1.020 (1.002-1.030) 12/03/21 18:26 Urine Protein NEGATIVE mg/dL (NEGATIVE) 12/03/21 18:26 Urine Glucose (UA) NEGATIVE mg/dL (NEGATIVE) 12/03/21 18:26 Urine Ketones NEGATIVE mg/dL (NEGATIVE) 12/03/21 18:26 Urine Occult Blood NEGATIVE (NEGATIVE) 12/03/21 18:26 Urine Nitrite NEGATIVE (NEGATIVE) 12/03/21 18:26 Urine Bilirubin NEGATIVE (NEGATIVE) 12/03/21 18:26 Urine Urobilinogen 0.2 (NORMAL) E.U./dL (NORMAL) 12/03/21 18:26 Ur Leukocyte Esterase NEGATIVE (NEGATIVE) 12/03/21 18:26 Ur Microscopic Review NOT INDICATED 12/03/21 18:26 Urine Culture Comments NOT INDICATED 12/03/21 18:26 Nasal Adenovirus (PCR) NOT DETECTED 12/20/21 19:10 Nasal B. parapertussis DNA (PCR) NOT DETECTED 12/20/21 19:10 Nasal Coronavir 229E PCR NOT DETECTED 12/20/21 19:10 Nasal Coronavir HKU1 PCR NOT DETECTED 12/20/21 19:10 Nasal Coronavir NL63 PCR NOT DETECTED 12/20/21 19:10 Nasal Coronavir OC43 PCR NOT DETECTED 12/20/21 19:10 Nasal Enterovir/Rhinovir PCR NOT DETECTED 12/20/21 19:10 Nasal Influenza B PCR NOT DETECTED 12/20/21 19:10 Nasal Influenza A PCR NOT DETECTED 12/20/21 19:10 Nasal Parainfluen 1 PCR NOT DETECTED 12/20/21 19:10 Nasal Parainfluen 2 PCR NOT DETECTED 12/20/21 19:10 Nasal Parainfluen 3 PCR NOT DETECTED 12/20/21 19:10 Nasal Parainfluen 4 PCR NOT DETECTED 12/20/21 19:10 Nasal RSV (PCR) NOT DETECTED 12/20/21 19:10 Nasal B.pertussis DNA PCR NOT DETECTED 12/20/21 19:10 Nasal C.pneumoniae (PCR) NOT DETECTED 12/20/21 19:10 [place] Human Metapneumo PCR NOT DETECTED 12/20/21 19:10 Nasal M.pneumoniae (PCR) NOT DETECTED 12/20/21 19:10 Nasal SARS-CoV-2 (PCR) DETECTED A 12/20/21 19:10 Salicylates < 6.0 mg/dL 12/03/21 18:20 Urine Opiates Screen NEGATIVE (NEGATIVE) 12/03/21 18:26 Ur Oxycodone Screen NEGATIVE (NEGATIVE) 12/03/21 18:26 Urine Methadone Screen NEGATIVE (NEGATIVE) 12/03/21 18:26 Ur Propoxyphene Screen NEGATIVE (NEGATIVE) 12/03/21 18:26 Acetaminophen < 10 ug/mL (10-30) L 12/03/21 18:20 Ur Barbiturates Screen NEGATIVE (NEGATIVE) 12/03/21 18:26 Ur Tricyclics Screen NEGATIVE (NEGATIVE) 12/03/21 18:26 Ur Phencyclidine Scrn NEGATIVE (NEGATIVE) 12/03/21 18:26 Ur Amphetamine Screen NEGATIVE (NEGATIVE) 12/03/21 18:26 U Methamphetamines Scrn NEGATIVE (NEGATIVE) 12/03/21 18:26 U Benzodiazepines Scrn POSITIVE (NEGATIVE) H 12/03/21 18:26 Urine Cocaine Screen NEGATIVE (NEGATIVE) 12/03/21 18:26 U Cannabinoids Screen NEGATIVE (NEGATIVE) 12/03/21 18:26 Ethyl Alcohol < 5.0 mg/dL 12/03/21 18:20 Sepsis Event Note (H) - Evaluation Current Stage of Sepsis: Ruled out ABX Reporting Has patient been on IV antibiotics over the past 48 hours?: No Current Medications - Current Medications Current Medications: Active Medications Docusate Sodium (Docusate Sodium 250 Mg Capsule) 250 - 500 mg PO DAILY PRN PRN Reason: Constipation Last Admin: 01/10/22 08:12 Dose: 250 mg Ibuprofen (Ibuprofen 400 Mg Tablet) 400 mg PO Q6HR PRN PRN Reason: Pain or Fever > 38C (100.4F) Magnesium Oxide (Magnesium Oxide 400 Mg Tablet) 400 mg PO DAILY [facility] Last Admin: 02/04/22 08:53 Dose: 400 mg Multivitamins (Multivitamin Tablet) 1 tab PO DAILY [facility] Last Admin: 02/04/22 08:53 Dose: 1 tab Nicotine (Nicotine 7 Mg Patch) 1 patch TOP DAILY [facility] Last Admin: 02/04/22 08:53 Dose: 1 patch Polyethylene Glycol (Polyethylene Glycol 3350 17 Gm Packet) 17 gm PO DAILY [facility] Last Admin: 02/04/22 08:57 Dose: Not Given Senna (Senna 8.6 Mg Tablet) 8.6 - 17.2 mg PO DAILY PRN PRN Reason: Constipation Last Admin: 01/10/22 08:12 Dose: 8.6 mg Thiamine HCl (Thiamine 100 Mg Tablet) 100 mg PO DAILY [facility] Last Admin: 02/04/22 08:58 Dose: 100 mg Magnesium Oxide [Mag Ox] 400 mg PO DAILY 12/01/21 Multivitamin [Theragran] 1 each PO DAILY 12/01/21
[2022-02-05] MEDS: MAGNESIUM OXIDE 400 MG TABLET PO SCH (08:34)
[2022-02-05] MEDS: MULTIVITAMIN TABLET PO SCH (08:34)
[2022-02-05] MEDS: polyethylene glycoL 3350 17 GM PACKET PO SCH (08:35)
[2022-02-05] MEDS: THIAMINE 100 MG TABLET PO SCH (08:36)
[2022-02-05] MEDS: NICOTINE 7 MG PATCH TOP SCH (08:37)
--- NOTE | 2022-02-05 10:30 | PROVIDER PROGRESS NOTE ---
Assessment/Plan - Problem List (1) Wernicke-Korsakoff syndrome (alcoholic) Assessment/Plan: 02/05 pt is stable, ate his whole breakfast, walk at hallway. he is waiting for disposition, pt is on Vitamin B1. 02/04 pt has no complaints, he is stable, he is waiting for disposition. 02/03 pt ate his breakfast, walk at hallway and stable. continue disposition planning for pt by neonatal social worker 01/30 pt is stable, pt walk at hallway. we will hold Seroquel on today per tele psychiatrist's recommendation, continue disposition planning 01/29 continue improvement. today is pt's birthday. we have birthday republican for pt. pt is smile and has appropriate conversations with us. pt had tele psychiatrist on 01/27/22. Per tele psychiatrist's recommendations, Haldol and Zyprexa was already hold, pt will have 25mg Seroquel on today, then will be hold as well. pt tolerate these waned off medications (2) COVID-19 Impression: This is now resolved. pt has no respiratory distress. He is off of contact precautions. (3) Homeless single person Impression: Continuing to work on disposition. We appreciate social work input, and disposi tion planning. (4) Alcohol abuse Impression: He initially went through alcohol withdrawal but this is now resolved. We are continuing thiamine supplementation daily. - Current Meds Current Meds: Current Medications Generic Name Dose Route Start Last Admin Trade Name Debby PRN Reason Stop Dose Admin Docusate Sodium 250 - 500 mg 12/22/21 07:23 01/10/22 08:12 Docusate Sodium 250 Mg Capsule PO 250 mg DAILY PRN Administration Constipation Magnesium Oxide 400 mg 12/05/21 09:00 02/05/22 08:34 Magnesium Oxide 400 Mg Tablet PO 400 mg DAILY MARY Administration Multivitamins 1 tab 12/05/21 09:00 02/05/22 08:34 Multivitamin Tablet PO 1 tab DAILY MARY Administration Nicotine 1 patch 01/03/22 09:00 02/05/22 08:37 Nicotine 7 Mg Patch TOP 1 patch DAILY MARY Administration Polyethylene Glycol 17 gm 12/09/21 14:00 02/05/22 08:35 Polyethylene Glycol 3350 17 Gm Packet PO Not Given DAILY MARY Senna 8.6 - 17.2 mg 12/22/21 07:23 01/10/22 08:12 Senna 8.6 Mg Tablet PO 8.6 mg DAILY PRN Administration Constipation Thiamine HCl 100 mg 12/04/21 09:00 02/05/22 08:36 Thiamine 100 Mg Tablet PO 100 mg DAILY MARY Administration - Lab Result Fish Bone Diagrams: 01/26/22 04:20 01/26/22 04:20 Subjective - Subjective Patient Reports: Resting Comfortably Objective Vital Signs: Vital Signs - 24 hr 02/05/22 07:28 Temperature 36.3 C L Heart Rate [ 89 Brachial] Respiratory 16 Rate Blood Pressure 117/77 [Right Brachial artery] O2 Saturation 97 Oxygen O2 Source Room air I&O (Last 24 Hrs): Intake and Output Totals x24h 02/03/22 02/04/22 02/05/22 23:59 23:59 23:59 Intake Total 1320 3260 540 Balance 1320 3260 540 General: Alert, Oriented x3, Cooperative, No acute distress HEENT: Atraumatic Neck: Supple Lymphatic: no adenopathy Neuro: Alert, Non Focal, Oriented Times 3 Cardiovascular: Regular rate, Normal S1, Normal S2 Respiratory: Chest non-tender, No respiratory distress Abdomen: Normal bowel sounds, Soft, No tenderness Extremities: Normal pulses - Results Results: Laboratory Results WBC 5.3 x10^3/uL (4.8-10.8) 01/26/22 04:20 RBC 4.39 10^6/uL (4.70-6.10) L 01/26/22 04:20 Hgb 13.6 g/dL (14.0-18.0) L 01/26/22 04:20 Hct 41.1 % (42.0-52.0) L 01/26/22 04:20 MCV 93.6 fL (80.0-94.0) 01/26/22 04:20 MCH 31.0 pg (27.0-31.0) 01/26/22 04:20 MCHC 33.1 g/dL (32.0-36.0) 01/26/22 04:20 RDW 13.2 % (12.0-15.0) 01/26/22 04:20 Plt Count 131 10^3/uL (130-450) 01/26/22 04:20 MPV 12.8 fL (7.4-11.4) H 01/26/22 04:20 Neut # (Auto) 2.5 10^3/uL (1.5-6.6) 01/26/22 04:20 Lymph # (Auto) 1.8 10^3/uL (1.5-3.5) 01/26/22 04:20 [place] # (Auto) 0.6 10^3/uL (0.0-1.0) 01/26/22 04:20 Eos # (Auto) 0.2 10^3/uL (0.0-0.7) 01/26/22 04:20 Baso # (Auto) 0.1 10^3/uL (0.0-0.1) 01/26/22 04:20 Absolute Nucleated RBC 0.00 x10^3/uL 01/26/22 04:20 Nucleated RBC % 0.0 /100WBC 01/26/22 04:20 PT 15.1 secs (9.9-12.6) H 12/04/21 23:33 INR 1.4 (0.8-1.2) H 12/04/21 23:33 APTT 24.8 secs (24.9-33.3) L 12/03/21 18:20 Sodium 139 mmol/L (135-145) 01/26/22 04:20 Potassium 4.0 mmol/L (3.5-5.0) 01/26/22 04:20 Chloride 104 mmol/L (101-111) 01/26/22 04:20 Carbon Dioxide 25 mmol/L (21-32) 01/26/22 04:20 Anion Gap 10.0 (6-13) 01/26/22 04:20 BUN 17 mg/dL (6-20) 01/26/22 04:20 Creatinine 0.6 mg/dL (0.6-1.2) 01/26/22 04:20 Estimated GFR (MDRD) 137 (>89) 01/26/22 04:20 Glucose 154 mg/dL (70-100) H 01/26/22 04:20 Estimat Average Glucose 111 mg/dL (70-100) H 01/26/22 04:20 Hemoglobin A1c % 5.5 % (4.27-6.07) 01/26/22 04:20 Calcium 9.0 mg/dL (8.5-10.3) 01/26/22 04:20 Phosphorus 3.6 mg/dL (2.5-4.6) 12/06/21 07:04 Magnesium 2.0 mg/dL (1.7-2.8) 12/06/21 07:04 Total Bilirubin 0.5 mg/dL (0.2-1.0) 01/26/22 04:20 Direct Bilirubin 0.1 mg/dL (0.1-0.5) 01/26/22 04:20 AST 77 IU/L (10-42) H 01/26/22 04:20 ALT 104 IU/L (10-60) H 01/26/22 04:20 Alkaline Phosphatase 58 IU/L (42-121) 01/26/22 04:20 Ammonia 12.5 umol/L (7-35) 12/08/21 07:54 Total Protein 6.4 g/dL (6.7-8.2) L 01/26/22 04:20 Albumin 3.6 g/dL (3.2-5.5) 01/26/22 04:20 Globulin 2.8 g/dL (2.1-4.2) 01/26/22 04:20 Albumin/Globulin Ratio 1.1 (1.0-2.2) 12/12/21 08:07 Lipase 28 U/L (22-51) 12/06/21 07:04 Whole Bld Vitamin B1 TNP 12/04/21 16:52 Vitamin B12 317 pg/mL (180-914) 01/26/22 04:20 Folate 20.49 ng/mL (5.90 - >24.8) 01/26/22 04:20 TSH 1.25 uIU/mL (0.34-5.60) 12/03/21 18:20 Urine Color YELLOW 12/03/21 18:26 Urine Clarity CLEAR (CLEAR) 12/03/21 18:26 Urine pH 6.5 PH (5.0-7.5) 12/03/21 18:26 Ur Specific [place] 1.020 (1.002-1.030) 12/03/21 18:26 Urine Protein NEGATIVE mg/dL (NEGATIVE) 12/03/21 18:26 Urine Glucose (UA) NEGATIVE mg/dL (NEGATIVE) 12/03/21 18:26 Urine Ketones NEGATIVE mg/dL (NEGATIVE) 12/03/21 18:26 Urine Occult Blood NEGATIVE (NEGATIVE) 12/03/21 18: Urine Nitrite NEGATIVE (NEGATIVE) 12/03/21 18: Urine Bilirubin NEGATIVE (NEGATIVE) 12/03/21 18: Urine Urobilinogen 0.2 (NORMAL) E.U./dL (NORMAL) 12/03/21 18:26 Ur Leukocyte Esterase NEGATIVE (NEGATIVE) 12/03/21 18:26 Ur Microscopic Review NOT INDICATED 12/03/21 18:26 Urine Culture Comments NOT INDICATED 12/03/21 18:26 Nasal Adenovirus (PCR) NOT DETECTED 12/20/21 19:10 Nasal B. parapertussis DNA (PCR) NOT DETECTED 12/20/21 19:10 Nasal Coronavir 229E PCR NOT DETECTED 12/20/21 19:10 Nasal Coronavir HKU1 PCR NOT DETECTED 12/20/21 19:10 Nasal Coronavir NL63 PCR NOT DETECTED 12/20/21 19:10 Nasal Coronavir OC43 PCR NOT DETECTED 12/20/21 19:10 Nasal Enterovir/Rhinovir PCR NOT DETECTED 12/20/21 19:10 Nasal Influenza B PCR NOT DETECTED 12/20/21 19:10 Nasal Influenza A PCR NOT DETECTED 12/20/21 19:10 Nasal Parainfluen 1 PCR NOT DETECTED 12/20/21 19:10 Nasal Parainfluen 2 PCR NOT DETECTED 12/20/21 19:10 Nasal Parainfluen 3 PCR NOT DETECTED 12/20/21 19:10 Nasal Parainfluen 4 PCR NOT DETECTED 12/20/21 19:10 Nasal RSV (PCR) NOT DETECTED 12/20/21 19:10 Nasal B.pertussis DNA PCR NOT DETECTED 12/20/21 19:10 Nasal C.pneumoniae (PCR) NOT DETECTED 12/20/21 19:10 Juan Daniel Human Metapneumo PCR NOT DETECTED 12/20/21 19:10 Nasal M.pneumoniae (PCR) NOT DETECTED 12/20/21 19:10 Nasal SARS-CoV-2 (PCR) DETECTED A 12/20/21 19:10 Salicylates < 6.0 mg/dL 12/03/21 18:20 Urine Opiates Screen NEGATIVE (NEGATIVE) 12/03/21 18:26 Ur Oxycodone Screen NEGATIVE (NEGATIVE) 12/03/21 18:26 Urine Methadone Screen NEGATIVE (NEGATIVE) 12/03/21 18:26 Ur Propoxyphene Screen NEGATIVE (NEGATIVE) 12/03/21 18:26 Acetaminophen < 10 ug/mL (10-30) L 12/03/21 18:20 Ur Barbiturates Screen NEGATIVE (NEGATIVE) 12/03/21 18:26 Ur Tricyclics Screen NEGATIVE (NEGATIVE) 12/03/21 18:26 Ur Phencyclidine Scrn NEGATIVE (NEGATIVE) 12/03/21 18:26 Ur Amphetamine Screen NEGATIVE (NEGATIVE) 12/03/21 18:26 U Methamphetamines Scrn NEGATIVE (NEGATIVE) 12/03/21 18:26 U Benzodiazepines Scrn POSITIVE (NEGATIVE) H 12/03/21 18:26 Urine Cocaine Screen NEGATIVE (NEGATIVE) 12/03/21 18:26 U Cannabinoids Screen NEGATIVE (NEGATIVE) 12/03/21 18:26 Ethyl Alcohol < 5.0 mg/dL 12/03/21 18:20 Sepsis Event Note (H) - Evaluation Current Stage of Sepsis: Ruled out ABX Reporting Has patient been on IV antibiotics over the past 48 hours?: No Current Medications - Current Medications Current Medications: Active Medications Docusate Sodium (Docusate Sodium 250 Mg Capsule) 250 - 500 mg PO DAILY PRN PRN Reason: Constipation Last Admin: 01/10/22 08:12 Dose: 250 mg Ibuprofen (Ibuprofen 400 Mg Tablet) 400 mg PO Q6HR PRN PRN Reason: Pain or Fever > 38C (100.4F) Magnesium Oxide (Magnesium Oxide 400 Mg Tablet) 400 mg PO DAILY [facility] Last Admin: 02/05/22 08:34 Dose: 400 mg Multivitamins (Multivitamin Tablet) 1 tab PO DAILY [facility] Last Admin: 02/05/22 08:34 Dose: 1 tab Nicotine (Nicotine 7 Mg Patch) 1 patch TOP DAILY [facility] Last Admin: 02/05/22 08:37 Dose: 1 patch Polyethylene Glycol (Polyethylene Glycol 3350 17 Gm Packet) 17 gm PO DAILY [facility] Last Admin: 02/05/22 08:35 Dose: Not Given Senna (Senna 8.6 Mg Tablet) 8.6 - 17.2 mg PO DAILY PRN PRN Reason: Constipation Last Admin: 01/10/22 08:12 Dose: 8.6 mg Thiamine HCl (Thiamine 100 Mg Tablet) 100 mg PO DAILY [facility] Last Admin: 02/05/22 08:36 Dose: 100 mg Magnesium Oxide [Mag Ox] 400 mg PO DAILY 12/01/21 Multivitamin [Theragran] 1 each PO DAILY 12/01/21
[2022-02-06] MEDS: MAGNESIUM OXIDE 400 MG TABLET PO SCH (08:10)
[2022-02-06] MEDS: polyethylene glycoL 3350 17 GM PACKET PO SCH (08:10)
[2022-02-06] MEDS: THIAMINE 100 MG TABLET PO SCH (08:11)
[2022-02-06] MEDS: NICOTINE 7 MG PATCH TOP SCH (08:11)
[2022-02-06] MEDS: MULTIVITAMIN TABLET PO SCH (08:11)
--- NOTE | 2022-02-06 11:23 | PROVIDER PROGRESS NOTE ---
Assessment/Plan - Problem List (1) Wernicke-Korsakoff syndrome (alcoholic) Assessment/Plan: 02/06 pt is pending for disposition and guardianship. bilingual social worker has been consulted. pt is stable. 02/05 pt is stable, ate his whole breakfast, walk at hallway. he is waiting for disposition, pt is on Vitamin B1. 02/04 pt has no complaints, he is stable, he is waiting for disposition. 02/03 pt ate his breakfast, walk at hallway and stable. continue disposition planning for pt by bilingual social worker 01/30 pt is stable, pt walk at hallway. we will hold Seroquel on today per tele psychiatrist's recommendation, continue disposition planning 01/29 continue improvement. today is pt's birthday. we have birthday libertarian for pt. pt is smile and has appropriate conversations with us. pt had tele psychiatrist on 01/27/22. Per tele psychiatrist's recommendations, Haldol and Zyprexa was already hold, pt will have 25mg Seroquel on today, then will be hold as well. pt tolerate these waned off medications (2) COVID-19 Impression: This is now resolved. pt has no respiratory distress. He is off of contact precautions. (3) Homeless single person Impression: Continuing to work on disposition. We appreciate social work input, and dispos ition planning. (4) Alcohol abuse Impression: He initially went through alcohol withdrawal but this is now resolved. We are continuing thiamine supplementation daily. - Current Meds Current Meds: Current Medications Generic Name Dose Route Start Last Admin Trade Name Debby PRN Reason Stop Dose Admin Docusate Sodium 250 - 500 mg 12/22/21 07:23 01/10/22 08:12 Docusate Sodium 250 Mg Capsule PO 250 mg DAILY PRN Administration Constipation Magnesium Oxide 400 mg 12/05/21 09:00 02/06/22 08:10 Magnesium Oxide 400 Mg Tablet PO 400 mg DAILY MARY Administration Multivitamins 1 tab 12/05/21 09:00 02/06/22 08:11 Multivitamin Tablet PO 1 tab DAILY MARY Administration Nicotine 1 patch 01/03/22 09:00 02/06/22 08:11 Nicotine 7 Mg Patch TOP 1 patch DAILY MARY Administration Polyethylene Glycol 17 gm 12/09/21 14:00 02/06/22 08:10 Polyethylene Glycol 3350 17 Gm Packet PO 17 gm DAILY MARY Administration Senna 8.6 - 17.2 mg 12/22/21 07:23 01/10/22 08:12 Senna 8.6 Mg Tablet PO 8.6 mg DAILY PRN Administration Constipation Thiamine HCl 100 mg 12/04/21 09:00 02/06/22 08:11 Thiamine 100 Mg Tablet PO 100 mg DAILY MARY Administration - Lab Result Fish Bone Diagrams: 01/26/22 04:20 01/26/22 04:20 Subjective - Subjective Patient Reports: Resting Comfortably, No Complaints Objective Vital Signs: Vital Signs - 24 hr 02/06/22 07:50 Temperature 36.3 C L Heart Rate [ 85 Brachial] Respiratory 18 Rate Blood Pressure 122/81 H [Right Brachial artery] O2 Saturation 96 Oxygen O2 Source Room air I&O (Last 24 Hrs): Intake and Output Totals x24h 02/04/22 02/05/22 02/06/22 23:59 23:59 23:59 Intake Total 3260 2680 1560 Balance 3260 2680 1560 General: Alert, Oriented x3, Cooperative, No acute distress HEENT: Atraumatic Neck: Supple Lymphatic: no adenopathy Neuro: Alert, Non Focal, Oriented Times 3 Cardiovascular: Regular rate, Normal S1, Normal S2 Respiratory: Chest non-tender, No respiratory distress Abdomen: Normal bowel sounds, Soft, No tenderness Extremities: Normal pulses - Results Results: Laboratory Results WBC 5.3 x10^3/uL (4.8-10.8) 01/26/22 04:20 RBC 4.39 10^6/uL (4.70-6.10) L 01/26/22 04:20 Hgb 13.6 g/dL (14.0-18.0) L 01/26/22 04:20 Hct 41.1 % (42.0-52.0) L 01/26/22 04:20 MCV 93.6 fL (80.0-94.0) 01/26/22 04:20 MCH 31.0 pg (27.0-31.0) 01/26/22 04:20 MCHC 33.1 g/dL (32.0-36.0) 01/26/22 04:20 RDW 13.2 % (12.0-15.0) 01/26/22 04:20 Plt Count 131 10^3/uL (130-450) 01/26/22 04:20 MPV 12.8 fL (7.4-11.4) H 01/26/22 04:20 Neut # (Auto) 2.5 10^3/uL (1.5-6.6) 01/26/22 04:20 Lymph # (Auto) 1.8 10^3/uL (1.5-3.5) 01/26/22 04:20 [place] # (Auto) 0.6 10^3/uL (0.0-1.0) 01/26/22 04:20 Eos # (Auto) 0.2 10^3/uL (0.0-0.7) 01/26/22 04:20 Baso # (Auto) 0.1 10^3/uL (0.0-0.1) 01/26/22 04:20 Absolute Nucleated RBC 0.00 x10^3/uL 01/26/22 04:20 Nucleated RBC % 0.0 /100WBC 01/26/22 04:20 PT 15.1 secs (9.9-12.6) H 12/04/21 23:33 INR 1.4 (0.8-1.2) H 12/04/21 23:33 APTT 24.8 secs (24.9-33.3) L 12/03/21 18:20 Sodium 139 mmol/L (135-145) 01/26/22 04:20 Potassium 4.0 mmol/L (3.5-5.0) 01/26/22 04:20 Chloride 104 mmol/L (101-111) 01/26/22 04:20 Carbon Dioxide 25 mmol/L (21-32) 01/26/22 04:20 Anion Gap 10.0 (6-13) 01/26/22 04:20 BUN 17 mg/dL (6-20) 01/26/22 04:20 Creatinine 0.6 mg/dL (0.6-1.2) 01/26/22 04:20 Estimated GFR (MDRD) 137 (>89) 01/26/22 04:20 Glucose 154 mg/dL (70-100) H 01/26/22 04:20 Estimat Average Glucose 111 mg/dL (70-100) H 01/26/22 04:20 Hemoglobin A1c % 5.5 % (4.27-6.07) 01/26/22 04:20 Calcium 9.0 mg/dL (8.5-10.3) 01/26/22 04:20 Phosphorus 3.6 mg/dL (2.5-4.6) 12/06/21 07:04 Magnesium 2.0 mg/dL (1.7-2.8) 12/06/21 07:04 Total Bilirubin 0.5 mg/dL (0.2-1.0) 01/26/22 04:20 Direct Bilirubin 0.1 mg/dL (0.1-0.5) 01/26/22 04:20 AST 77 IU/L (10-42) H 01/26/22 04:20 ALT 104 IU/L (10-60) H 01/26/22 04:20 Alkaline Phosphatase 58 IU/L (42-121) 01/26/22 04:20 Ammonia 12.5 umol/L (7-35) 12/08/21 07:54 Total Protein 6.4 g/dL (6.7-8.2) L 01/26/22 04:20 Albumin 3.6 g/dL (3.2-5.5) 01/26/22 04:20 Globulin 2.8 g/dL (2.1-4.2) 01/26/22 04:20 Albumin/Globulin Ratio 1.1 (1.0-2.2) 12/12/21 08:07 Lipase 28 U/L (22-51) 12/06/21 07:04 Whole Bld Vitamin B1 TNP 12/04/21 16:52 Vitamin B12 317 pg/mL (180-914) 01/26/22 04:20 Folate 20.49 ng/mL (5.90 - >24.8) 01/26/22 04:20 TSH 1.25 uIU/mL (0.34-5.60) 12/03/21 18:20 Urine Color YELLOW 12/03/21 18:26 Urine Clarity CLEAR (CLEAR) 12/03/21 18:26 Urine pH 6.5 PH (5.0-7.5) 12/03/21 18:26 Ur Specific [place] 1.020 (1.002-1.030) 12/03/21 18:26 Urine Protein NEGATIVE mg/dL (NEGATIVE) 12/03/21 18:26 Urine Glucose (UA) NEGATIVE mg/dL (NEGATIVE) 12/03/21 18:26 Urine Ketones NEGATIVE mg/dL (NEGATIVE) 12/03/21 18:26 Urine Occult Blood NEGATIVE (NEGATIVE) 12/03/21 18:26 Urine Nitrite NEGATIVE (NEGATIVE) 12/03/21 18:26 Urine Bilirubin NEGATIVE (NEGATIVE) 12/03/21 18:26 Urine Urobilinogen 0.2 (NORMAL) E.U./dL (NORMAL) 12/03/21 18:26 Ur Leukocyte Esterase NEGATIVE (NEGATIVE) 12/03/21 18:26 Ur Microscopic Review NOT INDICATED 12/03/21 18:26 Urine Culture Comments NOT INDICATED 12/03/21 18:26 Nasal Adenovirus (PCR) NOT DETECTED 12/20/21 19:10 Nasal B. parapertussis DNA (PCR) NOT DETECTED 12/20/21 19:10 Nasal Coronavir 229E PCR NOT DETECTED 12/20/21 19:10 Nasal Coronavir HKU1 PCR NOT DETECTED 12/20/21 19:10 Nasal Coronavir NL63 PCR NOT DETECTED 12/20/21 19:10 Nasal Coronavir OC43 PCR NOT DETECTED 12/20/21 19:10 Nasal Enterovir/Rhinovir PCR NOT DETECTED 12/20/21 19:10 Nasal Influenza B PCR NOT DETECTED 12/20/21 19:10 Nasal Influenza A PCR NOT DETECTED 12/20/21 19:10 Nasal Parainfluen 1 PCR NOT DETECTED 12/20/21 19:10 Nasal Parainfluen 2 PCR NOT DETECTED 12/20/21 19:10 Nasal Parainfluen 3 PCR NOT DETECTED 12/20/21 19:10 Nasal Parainfluen 4 PCR NOT DETECTED 12/20/21 19:10 Nasal RSV (PCR) NOT DETECTED 12/20/21 19:10 Nasal B.pertussis DNA PCR NOT DETECTED 12/20/21 19:10 Nasal C.pneumoniae (PCR) NOT DETECTED 12/20/21 19:10 Juan Daniel Human Metapneumo PCR NOT DETECTED 12/20/21 19:10 Nasal M.pneumoniae (PCR) NOT DETECTED 12/20/21 19:10 Nasal SARS-CoV-2 (PCR) DETECTED A 12/20/21 19:10 Salicylates < 6.0 mg/dL 12/03/21 18:20 Urine Opiates Screen NEGATIVE (NEGATIVE) 12/03/21 18:26 Ur Oxycodone Screen NEGATIVE (NEGATIVE) 12/03/21 18:26 Urine Methadone Screen NEGATIVE (NEGATIVE) 12/03/21 18:26 Ur Propoxyphene Screen NEGATIVE (NEGATIVE) 12/03/21 18:26 Acetaminophen < 10 ug/mL (10-30) L 12/03/21 18:20 Ur Barbiturates Screen NEGATIVE (NEGATIVE) 12/03/21 18:26 Ur Tricyclics Screen NEGATIVE (NEGATIVE) 12/03/21 18:26 Ur Phencyclidine Scrn NEGATIVE (NEGATIVE) 12/03/21 18:26 Ur Amphetamine Screen NEGATIVE (NEGATIVE) 12/03/21 18:26 U Methamphetamines Scrn NEGATIVE (NEGATIVE) 12/03/21 18:26 U Benzodiazepines Scrn POSITIVE (NEGATIVE) H 12/03/21 18:26 Urine Cocaine Screen NEGATIVE (NEGATIVE) 12/03/21 18:26 U Cannabinoids Screen NEGATIVE (NEGATIVE) 12/03/21 18:26 Ethyl Alcohol < 5.0 mg/dL 12/03/21 18:20 Sepsis Event Note (H) - Evaluation Current Stage of Sepsis: Ruled out ABX Reporting Has patient been on IV antibiotics over the past 48 hours?: No Current Medications - Current Medications Current Medications: Active Medications Docusate Sodium (Docusate Sodium 250 Mg Capsule) 250 - 500 mg PO DAILY PRN PRN Reason: Constipation Last Admin: 01/10/22 08:12 Dose: 250 mg Ibuprofen (Ibuprofen 400 Mg Tablet) 400 mg PO Q6HR PRN PRN Reason: Pain or Fever > 38C (100.4F) Magnesium Oxide (Magnesium Oxide 400 Mg Tablet) 400 mg PO DAILY [facility] Last Admin: 02/06/22 08:10 Dose: 400 mg Multivitamins (Multivitamin Tablet) 1 tab PO DAILY [facility] Last Admin: 02/06/22 08:11 Dose: 1 tab Nicotine (Nicotine 7 Mg Patch) 1 patch TOP DAILY [facility] Last Admin: 02/06/22 08:11 Dose: 1 patch Polyethylene Glycol (Polyethylene Glycol 3350 17 Gm Packet) 17 gm PO DAILY [facility] Last Admin: 02/06/22 08:10 Dose: 17 gm Senna (Senna 8.6 Mg Tablet) 8.6 - 17.2 mg PO DAILY PRN PRN Reason: Constipation Last Admin: 01/10/22 08:12 Dose: 8.6 mg Thiamine HCl (Thiamine 100 Mg Tablet) 100 mg PO DAILY [facility] Last Admin: 02/06/22 08:11 Dose: 100 mg Magnesium Oxide [Mag Ox] 400 mg PO DAILY 12/01/21 Multivitamin [Theragran] 1 each PO DAILY 12/01/21
--- NOTE | 2022-02-07 08:18 | PROVIDER PROGRESS NOTE ---
Subjective - Prog Note Date Prog Note Date: 02/07/22 Prog Note Time: 18:37 - Subjective Subjective: New complaints from patient. Nursing states there have been no new events. He stays in his room but also walks in the hallways. Eating his food. Major ative. No behavioral issues ever since he [place] of the [place]. As his behavior stabilized, and his delusions stabilized and his hallucinations went away, we gradually removed his antipsychotics. He has not been on Haldol or Risperdal for quite some time now. Current Medications - Current Medications Current Medications: Active Medications Docusate Sodium (Docusate Sodium 250 Mg Capsule) 250 - 500 mg PO DAILY PRN PRN Reason: Constipation Last Admin: 01/10/22 08:12 Dose: 250 mg Ibuprofen (Ibuprofen 400 Mg Tablet) 400 mg PO Q6HR PRN PRN Reason: Pain or Fever > 38C (100.4F) Magnesium Oxide (Magnesium Oxide 400 Mg Tablet) 400 mg PO DAILY [facility] Last Admin: 02/07/22 09:02 Dose: 400 mg Multivitamins (Multivitamin Tablet) 1 tab PO DAILY [facility] Last Admin: 02/07/22 09:02 Dose: 1 tab Nicotine (Nicotine 7 Mg Patch) 1 patch TOP DAILY [facility] Last Admin: 02/07/22 09:01 Dose: 1 patch Polyethylene Glycol (Polyethylene Glycol 3350 17 Gm Packet) 17 gm PO DAILY [facility] Last Admin: 02/07/22 09:02 Dose: Not Given Senna (Senna 8.6 Mg Tablet) 8.6 - 17.2 mg PO DAILY PRN PRN Reason: Constipation Last Admin: 01/10/22 08:12 Dose: 8.6 mg Thiamine HCl (Thiamine 100 Mg Tablet) 100 mg PO DAILY [facility] Last Admin: 02/07/22 09:02 Dose: 100 mg Magnesium Oxide [Mag Ox] 400 mg PO DAILY 12/01/21 Multivitamin [Theragran] 1 each PO DAILY 12/01/21 Objective - Vital Signs/Intake & Output Reviewed Vital Signs: Yes Intake & Output: Intake & Output 02/04/22 02/05/22 02/06/22 02/07/22 23:59 23:59 23:59 23:59 Intake Total 3260 2680 3720 240 Balance 3260 2680 3720 240 - Objective General Appearance: positive: Alert Eyes Bilateral: positive: PERRL ENT: positive: Pharynx nml Neck: positive: No JVD. negative: Stiff neck Respiratory: positive: No respiratory distress. negative: Wheezes, Rales, Rhonchi Cardiovascular: positive: Regular rate & rhythm, No murmur. negative: Gallop/S4, Friction rub Abdomen: positive: Non-tender, No organomegaly, Nml bowel sounds, No distention Neurologic/Psychiatric: positive: CN's nml (2-12), Motor nml - Lab Results Fish Bones: 01/26/22 04:20 01/26/22 04:20 Sepsis Event Note (H) - Evaluation Current Stage of Sepsis: Ruled out Assessment/Plan - Problem List (1) Metabolic encephalopathy Impression: This patient is in the process of getting guardianship. He has been medically stable for few weeks now. Currently awaiting court proceedings and guardianship to then place him.
[2022-02-07] MEDS: NICOTINE 7 MG PATCH TOP SCH (09:01)
[2022-02-07] MEDS: MULTIVITAMIN TABLET PO SCH (09:02)
[2022-02-07] MEDS: THIAMINE 100 MG TABLET PO SCH (09:02)
[2022-02-07] MEDS: polyethylene glycoL 3350 17 GM PACKET PO SCH (09:02)
[2022-02-07] MEDS: MAGNESIUM OXIDE 400 MG TABLET PO SCH (09:02)
[2022-02-08] MEDS: MULTIVITAMIN TABLET PO SCH (08:47)
[2022-02-08] MEDS: NICOTINE 7 MG PATCH TOP SCH (08:47)
[2022-02-08] MEDS: THIAMINE 100 MG TABLET PO SCH (08:47)
[2022-02-08] MEDS: MAGNESIUM OXIDE 400 MG TABLET PO SCH (08:47)
[2022-02-08] MEDS: polyethylene glycoL 3350 17 GM PACKET PO SCH (08:47)
--- NOTE | 2022-02-08 14:27 | PROVIDER PROGRESS NOTE ---
Progress Note February 08, 2022 2:25 PM Nothing new going on with this gentleman. No new events. He walks in the hallways, walks in his room. Eats his food. Is cooperative. No behavioral issues. Off of all antipsychotic medications for weeks now and doing well. Temperature is 36.9. Pulse 88. Blood pressure 102/79. Respirations 16. 95% on room air. Tall thin white male looks older than stated age. Oriented to person place and time. Neck is supple Lungs are clear Regular rate and rhythm Abdomen is soft and nontender with hypoactive bowel sounds. Had a bowel movement yesterday and a bowel movement today. Assessment/plan [facility] care for this [place] man as we wait guardianship and placement.
[2022-02-09] MEDS: MULTIVITAMIN TABLET PO SCH (07:59)
[2022-02-09] MEDS: NICOTINE 7 MG PATCH TOP SCH (07:59)
[2022-02-09] MEDS: MAGNESIUM OXIDE 400 MG TABLET PO SCH (07:59)
[2022-02-09] MEDS: THIAMINE 100 MG TABLET PO SCH (07:59)
[2022-02-09] MEDS: polyethylene glycoL 3350 17 GM PACKET PO SCH (08:01)
--- NOTE | 2022-02-09 20:00 | PROVIDER PROGRESS NOTE ---
Progress Note February 09, 2022 7:57 PM Nothing much is changed in poor Mr. Cano. Still awaiting guardianship. Graft vital signs are stable. Temperature is 36.4. Heart rate 83. Blood pressure 146/86. Respirations 16 and is 96% on room air. Medications are unchanged for a week now. 5 feet 6 inches tall. 74.48 kg. He is ambulatory in the room. Over the last week he has been much less ambulatory in the hallways or in the hospital. Appears to be sadder and more emotionally withdrawn. Neck is supple. Lungs are clear. Regular rate and rhythm. Abdomen soft nontender. Alert, oriented to place. Occasionally vague on the date. But he knows why he is here and he is regretting a lot of things that have happened in the past few months. No ataxia. Still occasionally delusional and paranoid. But minimally so. Able to be easily directed. Assessment/plan nonbillable rounding on a patient who was admitted with severe encephalopathy and delirium due to alcohol abuse. Behavior was a problem. Required restraints, antipsychotics. Over the course of time those have been removed and he has become more alert, much better nutrition status. Awaiting placement through court appointed guardian. We are awaiting the guardianship. He has been here 68 days
[2022-02-10] MEDS: MAGNESIUM OXIDE 400 MG TABLET PO SCH (08:22)
[2022-02-10] MEDS: polyethylene glycoL 3350 17 GM PACKET PO SCH (08:22)
[2022-02-10] MEDS: THIAMINE 100 MG TABLET PO SCH (08:22)
[2022-02-10] MEDS: MULTIVITAMIN TABLET PO SCH (08:22)
--- NOTE | 2022-02-10 11:49 | PROVIDER PROGRESS NOTE ---
Assessment/Plan - Problem List (1) Wernicke-Korsakoff syndrome (alcoholic) Assessment/Plan: 02/10 pt is Hemodynamic stable. Patient is pending for disposition, d/c nicotin patch on today, Continue on vitamin B1 02/06 pt is pending for disposition and guardianship. social sciences chair has been consulted. pt is stable. 02/05 pt is stable, ate his whole breakfast, walk at hallway. he is waiting for disposition, pt is on Vitamin B1. 02/04 pt has no complaints, he is stable, he is waiting for disposition. 02/03 pt ate his breakfast, walk at hallway and stable. continue disposition planning for pt by social sciences chair 01/30 pt is stable, pt walk at hallway. we will hold Seroquel on today per tele psychiatrist's recommendation, continue disposition planning 01/29 continue improvement. today is pt's birthday. we have birthday constitution party for pt. pt is smile and has appropriate conversations with us. pt had tele psych iatrist on 01/27/22. Per tele psychiatrist's recommendations, Haldol and Zyprexa was already hold, pt will have 25mg Seroquel on today, then will be hold as well. pt tolerate these waned off medications (2) COVID-19 Impression: This is now resolved. pt has no respiratory distress. He is off of contact precautions. (3) Homeless single person Impression: Continuing to work on disposition. We appreciate social work input, and disposition planning. (4) Alcohol abuse Impression: He initially went through alcohol withdrawal but this is now resolved. We are continuing thiamine supplementation daily. - Current Meds Current Meds: Current Medications Generic Name Dose Route Start Last Admin Trade Name Debby PRN Reason Stop Dose Admin Docusate Sodium 250 - 500 mg 12/22/21 07:23 01/10/22 08:12 Docusate Sodium 250 Mg Capsule PO 250 mg DAILY PRN Administration Constipation Magnesium Oxide 400 mg 12/05/21 09:00 02/10/22 08:22 Magnesium Oxide 400 Mg Tablet PO 400 mg DAILY MARY Administration Multivitamins 1 tab 12/05/21 09:00 02/10/22 08:22 Multivitamin Tablet PO 1 tab DAILY MARY Administration Polyethylene Glycol 17 gm 12/09/21 14:00 02/10/22 08:22 Polyethylene Glycol 3350 17 Gm Packet PO Not Given DAILY MARY Senna 8.6 - 17.2 mg 12/22/21 07:23 01/10/22 08:12 Senna 8.6 Mg Tablet PO 8.6 mg DAILY PRN Administration Constipation Thiamine HCl 100 mg 12/04/21 09:00 02/10/22 08:22 Thiamine 100 Mg Tablet PO 100 mg DAILY MARY Administration - Lab Result Fish Bone Diagrams: 01/26/22 04:20 01/26/22 04:20 Subjective - Subjective Patient Reports: Resting Comfortably Objective Vital Signs: Vital Signs - 24 hr 02/10/22 07:28 Temperature 36.3 C L Heart Rate [ 87 Brachial] Respiratory 16 Rate Blood Pressure 124/72 [Right Brachial artery] O2 Saturation 95 Oxygen O2 Source Room air I&O (Last 24 Hrs): Intake and Output Totals x24h 02/08/22 02/09/22 02/10/22 23:59 23:59 23:59 Intake Total 1700 2716 776 Balance 1700 2716 776 General: Alert, Oriented x3, Cooperative, No acute distress HEENT: Atraumatic Neck: Supple Lymphatic: no adenopathy Neuro: Alert, Non Focal, Oriented Times 3 Cardiovascular: Regular rate, Normal S1, Normal S2 Respiratory: Chest non-tender, No respiratory distress Abdomen: Normal bowel sounds, Soft Extremities: Normal pulses - Results Results: Laboratory Results WBC 5.3 x10^3/uL (4.8-10.8) 01/26/22 04:20 RBC 4.39 10^6/uL (4.70-6.10) L 01/26/22 04:20 Hgb 13.6 g/dL (14.0-18.0) L 01/26/22 04:20 Hct 41.1 % (42.0-52.0) L 01/26/22 04:20 MCV 93.6 fL (80.0-94.0) 01/26/22 04:20 MCH 31.0 pg (27.0-31.0) 01/26/22 04:20 MCHC 33.1 g/dL (32.0-36.0) 01/26/22 04:20 RDW 13.2 % (12.0-15.0) 01/26/22 04:20 Plt Count 131 10^3/uL (130-450) 01/26/22 04:20 MPV 12.8 fL (7.4-11.4) H 01/26/22 04:20 Neut # (Auto) 2.5 10^3/uL (1.5-6.6) 01/26/22 04:20 Lymph # (Auto) 1.8 10^3/uL (1.5-3.5) 01/26/22 04:20 [place] # (Auto) 0.6 10^3/uL (0.0-1.0) 01/26/22 04:20 Eos # (Auto) 0.2 10^3/uL (0.0-0.7) 01/26/22 04:20 Baso # (Auto) 0.1 10^3/uL (0.0-0.1) 01/26/22 04:20 Absolute Nucleated RBC 0.00 x10^3/uL 01/26/22 04:20 Nucleated RBC % 0.0 /100WBC 01/26/22 04:20 PT 15.1 secs (9.9-12.6) H 12/04/21 23:33 INR 1.4 (0.8-1.2) H 12/04/21 23:33 APTT 24.8 secs (24.9-33.3) L 12/03/21 18:20 Sodium 139 mmol/L (135-145) 01/26/22 04:20 Potassium 4.0 mmol/L (3.5-5.0) 01/26/22 04:20 Chloride 104 mmol/L (101-111) 01/26/22 04:20 Carbon Dioxide 25 mmol/L (21-32) 01/26/22 04:20 Anion Gap 10.0 (6-13) 01/26/22 04:20 BUN 17 mg/dL (6-20) 01/26/22 04:20 Creatinine 0.6 mg/dL (0.6-1.2) 01/26/22 04:20 Estimated GFR (MDRD) 137 (>89) 01/26/22 04:20 Glucose 154 mg/dL (70-100) H 01/26/22 04:20 Estimat Average Glucose 111 mg/dL (70-100) H 01/26/22 04:20 Hemoglobin A1c % 5.5 % (4.27-6.07) 01/26/22 04:20 Calcium 9.0 mg/dL (8.5-10.3) 01/26/22 04:20 Phosphorus 3.6 mg/dL (2.5-4.6) 12/06/21 07:04 Magnesium 2.0 mg/dL (1.7-2.8) 12/06/21 07:04 Total Bilirubin 0.5 mg/dL (0.2-1.0) 01/26/22 04:20 Direct Bilirubin 0.1 mg/dL (0.1-0.5) 01/26/22 04:20 AST 77 IU/L (10-42) H 01/26/22 04:20 ALT 104 IU/L (10-60) H 01/26/22 04:20 Alkaline Phosphatase 58 IU/L (42-121) 01/26/22 04:20 Ammonia 12.5 umol/L (7-35) 12/08/21 07:54 Total Protein 6.4 g/dL (6.7-8.2) L 01/26/22 04:20 Albumin 3.6 g/dL (3.2-5.5) 01/26/22 04:20 Globulin 2.8 g/dL (2.1-4.2) 01/26/22 04:20 Albumin/Globulin Ratio 1.1 (1.0-2.2) 12/12/21 08:07 Lipase 28 U/L (22-51) 12/06/21 07:04 Whole Bld Vitamin B1 TNP 12/04/21 16:52 Vitamin B12 317 pg/mL (180-914) 01/26/22 04:20 Folate 20.49 ng/mL (5.90 - >24.8) 01/26/22 04:20 TSH 1.25 uIU/mL (0.34-5.60) 12/03/21 18:20 Urine Color YELLOW 12/03/21 18:26 Urine Clarity CLEAR (CLEAR) 12/03/21 18:26 Urine pH 6.5 PH (5.0-7.5) 12/03/21 18:26 Ur Specific [place] 1.020 (1.002-1.030) 12/03/21 18:26 Urine Protein NEGATIVE mg/dL (NEGATIVE) 12/03/21 18:26 Urine Glucose (UA) NEGATIVE mg/dL (NEGATIVE) 12/03/21 18:26 Urine Ketones NEGATIVE mg/dL (NEGATIVE) 12/03/21 18:26 Urine Occult Blood NEGATIVE (NEGATIVE) 12/03/21 18:26 Urine Nitrite NEGATIVE (NEGATIVE) 12/03/21 18:26 Urine Bilirubin NEGATIVE (NEGATIVE) 12/03/21 18:26 Urine Urobilinogen 0.2 (NORMAL) E.U./dL (NORMAL) 12/03/21 18:26 Ur Leukocyte Esterase NEGATIVE (NEGATIVE) 12/03/21 18:26 Ur Microscopic Review NOT INDICATED 12/03/21 18:26 Urine Culture Comments NOT INDICATED 12/03/21 18:26 Nasal Adenovirus (PCR) NOT DETECTED 12/20/21 19:10 Nasal B. parapertussis DNA (PCR) NOT DETECTED 12/20/21 19:10 Nasal Coronavir 229E PCR NOT DETECTED 12/20/21 19:10 Nasal Coronavir HKU1 PCR NOT DETECTED 12/20/21 19:10 Nasal Coronavir NL63 PCR NOT DETECTED 12/20/21 19:10 Nasal Coronavir OC43 PCR NOT DETECTED 12/20/21 19:10 Nasal Enterovir/Rhinovir PCR NOT DETECTED 12/20/21 19:10 Nasal Influenza B PCR NOT DETECTED 12/20/21 19:10 Nasal Influenza A PCR NOT DETECTED 12/20/21 19:10 Nasal Parainfluen 1 PCR NOT DETECTED 12/20/21 19:10 Nasal Parainfluen 2 PCR NOT DETECTED 12/20/21 19:10 Nasal Parainfluen 3 PCR NOT DETECTED 12/20/21 19:10 Nasal Parainfluen 4 PCR NOT DETECTED 12/20/21 19:10 Nasal RSV (PCR) NOT DETECTED 12/20/21 19:10 Nasal B.pertussis DNA PCR NOT DETECTED 12/20/21 19:10 Nasal C.pneumoniae (PCR) NOT DETECTED 12/20/21 19:10 Juan Daniel Human Metapneumo PCR NOT DETECTED 12/20/21 19:10 Nasal M.pneumoniae (PCR) NOT DETECTED 12/20/21 19:10 Nasal SARS-CoV-2 (PCR) DETECTED A 12/20/21 19:10 Salicylates < 6.0 mg/dL 12/03/21 18:20 Urine Opiates Screen NEGATIVE (NEGATIVE) 12/03/21 18:26 Ur Oxycodone Screen NEGATIVE (NEGATIVE) 12/03/21 18:26 Urine Methadone Screen NEGATIVE (NEGATIVE) 12/03/21 18:26 Ur Propoxyphene Screen NEGATIVE (NEGATIVE) 12/03/21 18:26 Acetaminophen < 10 ug/mL (10-30) L 12/03/21 18:20 Ur Barbiturates Screen NEGATIVE (NEGATIVE) 12/03/21 18:26 Ur Tricyclics Screen NEGATIVE (NEGATIVE) 12/03/21 18:26 Ur Phencyclidine Scrn NEGATIVE (NEGATIVE) 12/03/21 18:26 Ur Amphetamine Screen NEGATIVE (NEGATIVE) 12/03/21 18:26 U Methamphetamines Scrn NEGATIVE (NEGATIVE) 12/03/21 18:26 U Benzodiazepines Scrn POSITIVE (NEGATIVE) H 12/03/21 18:26 Urine Cocaine Screen NEGATIVE (NEGATIVE) 12/03/21 18:26 U Cannabinoids Screen NEGATIVE (NEGATIVE) 12/03/21 18:26 Ethyl Alcohol < 5.0 mg/dL 12/03/21 18:20 Sepsis Event Note (H) - Evaluation Current Stage of Sepsis: Ruled out ABX Reporting Has patient been on IV antibiotics over the past 48 hours?: No Current Medications - Current Medications Current Medications: Active Medications Docusate Sodium (Docusate Sodium 250 Mg Capsule) 250 - 500 mg PO DAILY PRN PRN Reason: Constipation Last Admin: 01/10/22 08:12 Dose: 250 mg Ibuprofen (Ibuprofen 400 Mg Tablet) 400 mg PO Q6HR PRN PRN Reason: Pain or Fever > 38C (100.4F) Magnesium Oxide (Magnesium Oxide 400 Mg Tablet) 400 mg PO DAILY [facility] Last Admin: 02/10/22 08:22 Dose: 400 mg Multivitamins (Multivitamin Tablet) 1 tab PO DAILY [facility] Last Admin: 02/10/22 08:22 Dose: 1 tab Polyethylene Glycol (Polyethylene Glycol 3350 17 Gm Packet) 17 gm PO DAILY [facility] Last Admin: 02/10/22 08:22 Dose: Not Given Senna (Senna 8.6 Mg Tablet) 8.6 - 17.2 mg PO DAILY PRN PRN Reason: Constipation Last Admin: 01/10/22 08:12 Dose: 8.6 mg Thiamine HCl (Thiamine 100 Mg Tablet) 100 mg PO DAILY [facility] Last Admin: 02/10/22 08:22 Dose: 100 mg Magnesium Oxide [Mag Ox] 400 mg PO DAILY 12/01/21 Multivitamin [Theragran] 1 each PO DAILY 12/01/21
[2022-02-11] MEDS: MAGNESIUM OXIDE 400 MG TABLET PO SCH (07:51)
[2022-02-11] MEDS: MULTIVITAMIN TABLET PO SCH (07:51)
[2022-02-11] MEDS: THIAMINE 100 MG TABLET PO SCH (07:51)
[2022-02-11] MEDS: polyethylene glycoL 3350 17 GM PACKET PO SCH (07:52)
--- NOTE | 2022-02-11 10:11 | PROVIDER PROGRESS NOTE ---
Assessment/Plan - Problem List (1) Wernicke-Korsakoff syndrome (alcoholic) Assessment/Plan: 02/11 pt is stable, ate all his breakfast, ambulate. he is waiting for guardianship and disposition, pt is on Vitamin B1. 02/10 pt is Hemodynamic stable. Patient is pending for disposition, d/c nicotin patch on today, Continue on vitamin B1 02/06 pt is pending for disposition and guardianship. sr. social media & mobile manager has been consulted. pt is stable. 02/05 pt is stable, ate his whole breakfast, walk at hallway. he is waiting for disposition, pt is on Vitamin B1. 02/04 pt has no complaints, he is stable, he is waiting for disposition. 02/03 pt ate his breakfast, walk at hallway and stable. continue disposition planning for pt by sr. social media & mobile manager 01/30 pt is stable, pt walk at hallway. we will hold Seroquel on today per tele psychiatrist's recommendation, continue disposition planning 01/29 continue improvement. today is pt's birthday. we have birthday green party for pt. pt is smile and has appropriate conversations with us. pt had tele psychiatrist on 01/27/22. Per tele psychiatrist's recommendations, Haldol and Zyprexa was already hold, pt will have 25mg Seroquel on today, then will be hold as well. pt tolerate these waned off medications (2) COVID-19 Impression: This is now resolved. pt has no respiratory distress. He is off of contact precautions. (3) Homeless single person Impression: Continuing to work on disposition. We appreciate social work input, and disposition planning. (4) Alcohol abuse Impression: He initially went through alcohol withdrawal but this is now resolved. We are continuing thiamine supplementation daily. - Current Meds Current Meds: Current Medications Generic Name Dose Route Start Last Admin Trade Name Freq PRN Reason Stop Dose Admin Docusate Sodium 250 - 500 mg 12/22/21 07:23 01/10/22 08:12 Docusate Sodium 250 Mg Capsule PO 250 mg DAILY PRN Administration Constipation Magnesium Oxide 400 mg 12/05/21 09:00 02/11/22 07:51 Magnesium Oxide 400 Mg Tablet PO 400 mg DAILY MARY Administration Multivitamins 1 tab 12/05/21 09:00 02/11/22 07:51 Multivitamin Tablet PO 1 tab DAILY MARY Administration Polyethylene Glycol 17 gm 12/09/21 14:00 02/11/22 07:52 Polyethylene Glycol 3350 17 Gm Packet PO Not Given DAILY MARY Senna 8.6 - 17.2 mg 12/22/21 07:23 01/10/22 08:12 Senna 8.6 Mg Tablet PO 8.6 mg DAILY PRN Administration Constipation Thiamine HCl 100 mg 12/04/21 09:00 02/11/22 07:51 Thiamine 100 Mg Tablet PO 100 mg DAILY MARY Administration - Lab Result Fish Bone Diagrams: 01/26/22 04:20 01/26/22 04:20 Subjective - Subjective Patient Reports: Resting Comfortably Objective Vital Signs: Vital Signs - 24 hr 02/11/22 07:52 Temperature 36.5 C Heart Rate [ 86 Brachial] Respiratory 16 Rate Blood Pressure 117/77 [Right Radial artery] O2 Saturation 95 Oxygen O2 Source Room air I&O (Last 24 Hrs): Intake and Output Totals x24h 02/09/22 02/10/22 02/11/22 23:59 23:59 23:59 Intake Total 2716 1736 1600 Balance 2716 1736 1600 General: Alert, Oriented x3, Cooperative, No acute distress HEENT: Atraumatic Neck: Supple Lymphatic: no adenopathy Neuro: Alert, Non Focal, Oriented Times 3 Cardiovascular: Regular rate, Normal S1, Normal S2 Respiratory: Chest non-tender, No respiratory distress Abdomen: Normal bowel sounds, Soft, No tenderness Extremities: Normal pulses - Results Results: Laboratory Results WBC 5.3 x10^3/uL (4.8-10.8) 01/26/22 04:20 RBC 4.39 10^6/uL (4.70-6.10) L 01/26/22 04:20 Hgb 13.6 g/dL (14.0-18.0) L 01/26/22 04:20 Hct 41.1 % (42.0-52.0) L 01/26/22 04:20 MCV 93.6 fL (80.0-94.0) 01/26/22 04:20 MCH 31.0 pg (27.0-31.0) 01/26/22 04:20 MCHC 33.1 g/dL (32.0-36.0) 01/26/22 04:20 RDW 13.2 % (12.0-15.0) 01/26/22 04:20 Plt Count 131 10^3/uL (130-450) 01/26/22 04:20 MPV 12.8 fL (7.4-11.4) H 01/26/22 04:20 Neut # (Auto) 2.5 10^3/uL (1.5-6.6) 01/26/22 04:20 Lymph # (Auto) 1.8 10^3/uL (1.5-3.5) 01/26/22 04:20 [place] # (Auto) 0.6 10^3/uL (0.0-1.0) 01/26/22 04:20 Eos # (Auto) 0.2 10^3/uL (0.0-0.7) 01/26/22 04:20 Baso # (Auto) 0.1 10^3/uL (0.0-0.1) 01/26/22 04:20 Absolute Nucleated RBC 0.00 x10^3/uL 01/26/22 04:20 Nucleated RBC % 0.0 /100WBC 01/26/22 04:20 PT 15.1 secs (9.9-12.6) H 12/04/21 23:33 INR 1.4 (0.8-1.2) H 12/04/21 23:33 APTT 24.8 secs (24.9-33.3) L 12/03/21 18:20 Sodium 139 mmol/L (135-145) 01/26/22 04:20 Potassium 4.0 mmol/L (3.5-5.0) 01/26/22 04:20 Chloride 104 mmol/L (101-111) 01/26/22 04:20 Carbon Dioxide 25 mmol/L (21-32) 01/26/22 04:20 Anion Gap 10.0 (6-13) 01/26/22 04:20 BUN 17 mg/dL (6-20) 01/26/22 04:20 Creatinine 0.6 mg/dL (0.6-1.2) 01/26/22 04:20 Estimated GFR (MDRD) 137 (>89) 01/26/22 04:20 Glucose 154 mg/dL (70-100) H 01/26/22 04:20 Estimat Average Glucose 111 mg/dL (70-100) H 01/26/22 04:20 Hemoglobin A1c % 5.5 % (4.27-6.07) 01/26/22 04:20 Calcium 9.0 mg/dL (8.5-10.3) 01/26/22 04:20 Phosphorus 3.6 mg/dL (2.5-4.6) 12/06/21 07:04 Magnesium 2.0 mg/dL (1.7-2.8) 12/06/21 07:04 Total Bilirubin 0.5 mg/dL (0.2-1.0) 01/26/22 04:20 Direct Bilirubin 0.1 mg/dL (0.1-0.5) 01/26/22 04:20 AST 77 IU/L (10-42) H 01/26/22 04:20 ALT 104 IU/L (10-60) H 01/26/22 04:20 Alkaline Phosphatase 58 IU/L (42-121) 01/26/22 04:20 Ammonia 12.5 umol/L (7-35) 12/08/21 07:54 Total Protein 6.4 g/dL (6.7-8.2) L 01/26/22 04:20 Albumin 3.6 g/dL (3.2-5.5) 01/26/22 04:20 Globulin 2.8 g/dL (2.1-4.2) 01/26/22 04:20 Albumin/Globulin Ratio 1.1 (1.0-2.2) 12/12/21 08:07 Lipase 28 U/L (22-51) 12/06/21 07:04 Whole Bld Vitamin B1 TNP 12/04/21 16:52 Vitamin B12 317 pg/mL (180-914) 01/26/22 04:20 Folate 20.49 ng/mL (5.90 - >24.8) 01/26/22 04:20 TSH 1.25 uIU/mL (0.34-5.60) 12/03/21 18:20 Urine Color YELLOW 12/03/21 18:26 Urine Clarity CLEAR (CLEAR) 12/03/21 18:26 Urine pH 6.5 PH (5.0-7.5) 12/03/21 18:26 Ur Specific [place] 1.020 (1.002-1.030) 12/03/21 18:26 Urine Protein NEGATIVE mg/dL (NEGATIVE) 12/03/21 18:26 Urine Glucose (UA) NEGATIVE mg/dL (NEGATIVE) 12/03/21 18: Urine Ketones NEGATIVE mg/dL (NEGATIVE) 12/03/21 18:26 Urine Occult Blood NEGATIVE (NEGATIVE) 12/03/21 18:26 Urine Nitrite NEGATIVE (NEGATIVE) 12/03/21 18: Urine Bilirubin NEGATIVE (NEGATIVE) 12/03/21 18: Urine Urobilinogen 0.2 (NORMAL) E.U./dL (NORMAL) 12/03/21 18:26 Ur Leukocyte Esterase NEGATIVE (NEGATIVE) 12/03/21 18:26 Ur Microscopic Review NOT INDICATED 12/03/21 18: Urine Culture Comments NOT INDICATED 12/03/21 18:26 Nasal Adenovirus (PCR) NOT DETECTED 12/20/21 19:10 Nasal B. parapertussis DNA (PCR) NOT DETECTED 12/20/21 19:10 Nasal Coronavir 229E PCR NOT DETECTED 12/20/21 19:10 Nasal Coronavir HKU1 PCR NOT DETECTED 12/20/21 19:10 Nasal Coronavir NL63 PCR NOT DETECTED 12/20/21 19:10 Nasal Coronavir OC43 PCR NOT DETECTED 12/20/21 19:10 Nasal Enterovir/Rhinovir PCR NOT DETECTED 12/20/21 19:10 Nasal Influenza B PCR NOT DETECTED 12/20/21 19:10 Nasal Influenza A PCR NOT DETECTED 12/20/21 19:10 Nasal Parainfluen 1 PCR NOT DETECTED 12/20/21 19:10 Nasal Parainfluen 2 PCR NOT DETECTED 12/20/21 19:10 Nasal Parainfluen 3 PCR NOT DETECTED 12/20/21 19:10 Nasal Parainfluen 4 PCR NOT DETECTED 12/20/21 19:10 Nasal RSV (PCR) NOT DETECTED 12/20/21 19:10 Nasal B.pertussis DNA PCR NOT DETECTED 12/20/21 19:10 Nasal C.pneumoniae (PCR) NOT DETECTED 12/20/21 19:10 Juan Daniel Human Metapneumo PCR NOT DETECTED 12/20/21 19:10 Nasal M.pneumoniae (PCR) NOT DETECTED 12/20/21 19:10 Nasal SARS-CoV-2 (PCR) DETECTED A 12/20/21 19:10 Salicylates < 6.0 mg/dL 12/03/21 18:20 Urine Opiates Screen NEGATIVE (NEGATIVE) 12/03/21 18:26 Ur Oxycodone Screen NEGATIVE (NEGATIVE) 12/03/21 18:26 Urine Methadone Screen NEGATIVE (NEGATIVE) 12/03/21 18:26 Ur Propoxyphene Screen NEGATIVE (NEGATIVE) 12/03/21 18:26 Acetaminophen < 10 ug/mL (10-30) L 12/03/21 18:20 Ur Barbiturates Screen NEGATIVE (NEGATIVE) 12/03/21 18:26 Ur Tricyclics Screen NEGATIVE (NEGATIVE) 12/03/21 18:26 Ur Phencyclidine Scrn NEGATIVE (NEGATIVE) 12/03/21 18:26 Ur Amphetamine Screen NEGATIVE (NEGATIVE) 12/03/21 18:26 U Methamphetamines Scrn NEGATIVE (NEGATIVE) 12/03/21 18:26 U Benzodiazepines Scrn POSITIVE (NEGATIVE) H 12/03/21 18:26 Urine Cocaine Screen NEGATIVE (NEGATIVE) 12/03/21 18:26 U Cannabinoids Screen NEGATIVE (NEGATIVE) 12/03/21 18:26 Ethyl Alcohol < 5.0 mg/dL 12/03/21 18:20 Sepsis Event Note (H) - Evaluation Current Stage of Sepsis: Ruled out ABX Reporting Has patient been on IV antibiotics over the past 48 hours?: No Current Medications - Current Medications Current Medications: Active Medications Docusate Sodium (Docusate Sodium 250 Mg Capsule) 250 - 500 mg PO DAILY PRN PRN Reason: Constipation Last Admin: 01/10/22 08:12 Dose: 250 mg Ibuprofen (Ibuprofen 400 Mg Tablet) 400 mg PO Q6HR PRN PRN Reason: Pain or Fever > 38C (100.4F) Magnesium Oxide (Magnesium Oxide 400 Mg Tablet) 400 mg PO DAILY [facility] Last Admin: 02/11/22 07:51 Dose: 400 mg Multivitamins (Multivitamin Tablet) 1 tab PO DAILY [facility] Last Admin: 02/11/22 07:51 Dose: 1 tab Polyethylene Glycol (Polyethylene Glycol 3350 17 Gm Packet) 17 gm PO DAILY [facility] Last Admin: 02/11/22 07:52 Dose: Not Given Senna (Senna 8.6 Mg Tablet) 8.6 - 17.2 mg PO DAILY PRN PRN Reason: Constipation Last Admin: 01/10/22 08:12 Dose: 8.6 mg Thiamine HCl (Thiamine 100 Mg Tablet) 100 mg PO DAILY [facility] Last Admin: 02/11/22 07:51 Dose: 100 mg Magnesium Oxide [Mag Ox] 400 mg PO DAILY 12/01/21 Multivitamin [Theragran] 1 each PO DAILY 12/01/21
--- NOTE | 2022-02-12 12:16 | PROVIDER PROGRESS NOTE ---
Assessment/Plan - Problem List (1) Wernicke-Korsakoff syndrome (alcoholic) Assessment/Plan: 02/12 pt is Hemodynamic stable, is pending for guardianship and disposition. he ate all his breakfast. he walk at hallway. 02/11 pt is stable, ate all his breakfast, ambulate. he is waiting for guardianship and disposition, pt is on Vitamin B1. 02/10 pt is Hemodynamic stable. Patient is pending for disposition, d/c nicotin patch on today, Continue on vitamin B1 02/06 pt is pending for disposition and guardianship. elementary school social worker has been consulted. pt is stable. 02/05 pt is stable, ate his whole breakfast, walk at hallway. he is waiting for disposition, pt is on Vitamin B1. 02/04 pt has no complaints, he is stable, he is waiting for disposition. 02/03 pt ate his breakfast, walk at hallway and stable. continue disposition planning for pt by elementary school social worker 01/30 pt is stable, pt walk at hallway. we will hold Seroquel on today per tele psychiatrist's recommendation, continue disposition planning 01/29 continue improvement. today is pt's birthday. we have birthday democrat for pt. pt is smile and has appropriate conversations with us. pt had tele psychiatrist on 01/27/22. Per tele psychiatrist's recommendations, Haldol and Zyprexa was already hold, pt will have 25mg Seroquel on today, then will be hold as well. pt tolerate these waned off medications (2) COVID-19 Impression: This is now resolved. pt has no respiratory distress. He is off of contact precautions. (3) Homeless single person Impression: Continuing to work on disposition. We appreciate social work input, and disposition planning. (4) Alcohol abuse Impression: He initially went through alcohol withdrawal but this is now resolved. We are continuing thiamine supplementation daily. - Current Meds Current Meds: Current Medications Generic Name Dose Route Start Last Admin Trade Name Freq PRN Reason Stop Dose Admin Docusate Sodium 250 - 500 mg 12/22/21 07:23 01/10/22 08:12 Docusate Sodium 250 Mg Capsule PO 250 mg DAILY PRN Administration Constipation Magnesium Oxide 400 mg 12/05/21 09:00 02/11/22 07:51 Magnesium Oxide 400 Mg Tablet PO 400 mg DAILY MARY Administration Multivitamins 1 tab 12/05/21 09:00 02/11/22 07:51 Multivitamin Tablet PO 1 tab DAILY MARY Administration Polyethylene Glycol 17 gm 12/09/21 14:00 02/11/22 07:52 Polyethylene Glycol 3350 17 Gm Packet PO Not Given DAILY MARY Senna 8.6 - 17.2 mg 12/22/21 07:23 01/10/22 08:12 Senna 8.6 Mg Tablet PO 8.6 mg DAILY PRN Administration Constipation Thiamine HCl 100 mg 12/04/21 09:00 02/11/22 07:51 Thiamine 100 Mg Tablet PO 100 mg DAILY MARY Administration - Lab Result Fish Bone Diagrams: 01/26/22 04:20 01/26/22 04:20 Subjective - Subjective Patient Reports: Resting Comfortably Objective Vital Signs: Vital Signs - 24 hr 02/12/22 09:00 Temperature 36.8 C Heart Rate [ 72 Brachial] Respiratory 12 Rate Blood Pressure 112/72 [Right Brachial artery] O2 Saturation 100 Oxygen O2 Source Room air I&O (Last 24 Hrs): Intake and Output Totals x24h 02/10/22 02/11/22 02/12/22 23:59 23:59 23:59 Intake Total 1736 2200 680 Balance 1736 2200 680 General: Alert, Oriented x3, Cooperative, No acute distress HEENT: Atraumatic Neck: Supple Lymphatic: no adenopathy Neuro: Alert, Non Focal, Oriented Times 3 Cardiovascular: Regular rate, Normal S1, Normal S2 Respiratory: Chest non-tender, No respiratory distress Abdomen: Normal bowel sounds, Soft Extremities: Normal pulses - Results Results: Laboratory Results WBC 5.3 x10^3/uL (4.8-10.8) 01/26/22 04:20 RBC 4.39 10^6/uL (4.70-6.10) L 01/26/22 04:20 Hgb 13.6 g/dL (14.0-18.0) L 01/26/22 04:20 Hct 41.1 % (42.0-52.0) L 01/26/22 04:20 MCV 93.6 fL (80.0-94.0) 01/26/22 04:20 MCH 31.0 pg (27.0-31.0) 01/26/22 04:20 MCHC 33.1 g/dL (32.0-36.0) 01/26/22 04:20 RDW 13.2 % (12.0-15.0) 01/26/22 04:20 Plt Count 131 10^3/uL (130-450) 01/26/22 04:20 MPV 12.8 fL (7.4-11.4) H 01/26/22 04:20 Neut # (Auto) 2.5 10^3/uL (1.5-6.6) 01/26/22 04:20 Lymph # (Auto) 1.8 10^3/uL (1.5-3.5) 01/26/22 04:20 [place] # (Auto) 0.6 10^3/uL (0.0-1.0) 01/26/22 04:20 Eos # (Auto) 0.2 10^3/uL (0.0-0.7) 01/26/22 04:20 Baso # (Auto) 0.1 10^3/uL (0.0-0.1) 01/26/22 04:20 Absolute Nucleated RBC 0.00 x10^3/uL 01/26/22 04:20 Nucleated RBC % 0.0 /100WBC 01/26/22 04:20 PT 15.1 secs (9.9-12.6) H 12/04/21 23:33 INR 1.4 (0.8-1.2) H 12/04/21 23:33 APTT 24.8 secs (24.9-33.3) L 12/03/21 18:20 Sodium 139 mmol/L (135-145) 01/26/22 04:20 Potassium 4.0 mmol/L (3.5-5.0) 01/26/22 04:20 Chloride 104 mmol/L (101-111) 01/26/22 04:20 Carbon Dioxide 25 mmol/L (21-32) 01/26/22 04:20 Anion Gap 10.0 (6-13) 01/26/22 04:20 BUN 17 mg/dL (6-20) 01/26/22 04:20 Creatinine 0.6 mg/dL (0.6-1.2) 01/26/22 04:20 Estimated GFR (MDRD) 137 (>89) 01/26/22 04:20 Glucose 154 mg/dL (70-100) H 01/26/22 04:20 Estimat Average Glucose 111 mg/dL (70-100) H 01/26/22 04:20 Hemoglobin A1c % 5.5 % (4.27-6.07) 01/26/22 04:20 Calcium 9.0 mg/dL (8.5-10.3) 01/26/22 04:20 Phosphorus 3.6 mg/dL (2.5-4.6) 12/06/21 07:04 Magnesium 2.0 mg/dL (1.7-2.8) 12/06/21 07:04 Total Bilirubin 0.5 mg/dL (0.2-1.0) 01/26/22 04:20 Direct Bilirubin 0.1 mg/dL (0.1-0.5) 01/26/22 04:20 AST 77 IU/L (10-42) H 01/26/22 04:20 ALT 104 IU/L (10-60) H 01/26/22 04:20 Alkaline Phosphatase 58 IU/L (42-121) 01/26/22 04:20 Ammonia 12.5 umol/L (7-35) 12/08/21 07:54 Total Protein 6.4 g/dL (6.7-8.2) L 01/26/22 04:20 Albumin 3.6 g/dL (3.2-5.5) 01/26/22 04:20 Globulin 2.8 g/dL (2.1-4.2) 01/26/22 04:20 Albumin/Globulin Ratio 1.1 (1.0-2.2) 12/12/21 08:07 Lipase 28 U/L (22-51) 12/06/21 07:04 Whole Bld Vitamin B1 TNP 12/04/21 16:52 Vitamin B12 317 pg/mL (180-914) 01/26/22 04:20 Folate 20.49 ng/mL (5.90 - >24.8) 01/26/22 04:20 TSH 1.25 uIU/mL (0.34-5.60) 12/03/21 18:20 Urine Color YELLOW 12/03/21 18:26 Urine Clarity CLEAR (CLEAR) 12/03/21 18:26 Urine pH 6.5 PH (5.0-7.5) 12/03/21 18:26 Ur Specific [place] 1.020 (1.002-1.030) 12/03/21 18:26 Urine Protein NEGATIVE mg/dL (NEGATIVE) 12/03/21 18:26 Urine Glucose (UA) NEGATIVE mg/dL (NEGATIVE) 12/03/21 18: Urine Ketones NEGATIVE mg/dL (NEGATIVE) 12/03/21 18: Urine Occult Blood NEGATIVE (NEGATIVE) 12/03/21 18: Urine Nitrite NEGATIVE (NEGATIVE) 12/03/21 18: Urine Bilirubin NEGATIVE (NEGATIVE) 12/03/21 18: Urine Urobilinogen 0.2 (NORMAL) E.U./dL (NORMAL) 12/03/21 18: Ur Leukocyte Esterase NEGATIVE (NEGATIVE) 12/03/21 18:26 Ur Microscopic Review NOT INDICATED 12/03/21 18: Urine Culture Comments NOT INDICATED 12/03/21 18:26 Nasal Adenovirus (PCR) NOT DETECTED 12/20/21 19:10 Nasal B. parapertussis DNA (PCR) NOT DETECTED 12/20/21 19:10 Nasal Coronavir 229E PCR NOT DETECTED 12/20/21 19:10 Nasal Coronavir HKU1 PCR NOT DETECTED 12/20/21 19:10 Nasal Coronavir NL63 PCR NOT DETECTED 12/20/21 19:10 Nasal Coronavir OC43 PCR NOT DETECTED 12/20/21 19:10 Nasal Enterovir/Rhinovir PCR NOT DETECTED 12/20/21 19:10 Nasal Influenza B PCR NOT DETECTED 12/20/21 19:10 Nasal Influenza A PCR NOT DETECTED 12/20/21 19:10 Nasal Parainfluen 1 PCR NOT DETECTED 12/20/21 19:10 Nasal Parainfluen 2 PCR NOT DETECTED 12/20/21 19:10 Nasal Parainfluen 3 PCR NOT DETECTED 12/20/21 19:10 Nasal Parainfluen 4 PCR NOT DETECTED 12/20/21 19:10 Nasal RSV (PCR) NOT DETECTED 12/20/21 19:10 Nasal B.pertussis DNA PCR NOT DETECTED 12/20/21 19:10 Nasal C.pneumoniae (PCR) NOT DETECTED 12/20/21 19:10 Juan Daniel Human Metapneumo PCR NOT DETECTED 12/20/21 19:10 Nasal M.pneumoniae (PCR) NOT DETECTED 12/20/21 19:10 Nasal SARS-CoV-2 (PCR) DETECTED A 12/20/21 19:10 Salicylates < 6.0 mg/dL 12/03/21 18:20 Urine Opiates Screen NEGATIVE (NEGATIVE) 12/03/21 18:26 Ur Oxycodone Screen NEGATIVE (NEGATIVE) 12/03/21 18:26 Urine Methadone Screen NEGATIVE (NEGATIVE) 12/03/21 18:26 Ur Propoxyphene Screen NEGATIVE (NEGATIVE) 12/03/21 18:26 Acetaminophen < 10 ug/mL (10-30) L 12/03/21 18:20 Ur Barbiturates Screen NEGATIVE (NEGATIVE) 12/03/21 18:26 Ur Tricyclics Screen NEGATIVE (NEGATIVE) 12/03/21 18:26 Ur Phencyclidine Scrn NEGATIVE (NEGATIVE) 12/03/21 18:26 Ur Amphetamine Screen NEGATIVE (NEGATIVE) 12/03/21 18:26 U Methamphetamines Scrn NEGATIVE (NEGATIVE) 12/03/21 18:26 U Benzodiazepines Scrn POSITIVE (NEGATIVE) H 12/03/21 18:26 Urine Cocaine Screen NEGATIVE (NEGATIVE) 12/03/21 18:26 U Cannabinoids Screen NEGATIVE (NEGATIVE) 12/03/21 18:26 Ethyl Alcohol < 5.0 mg/dL 12/03/21 18:20 Sepsis Event Note (H) - Evaluation Current Stage of Sepsis: Ruled out ABX Reporting Has patient been on IV antibiotics over the past 48 hours?: No Current Medications - Current Medications Current Medications: Active Medications Docusate Sodium (Docusate Sodium 250 Mg Capsule) 250 - 500 mg PO DAILY PRN PRN Reason: Constipation Last Admin: 01/10/22 08:12 Dose: 250 mg Ibuprofen (Ibuprofen 400 Mg Tablet) 400 mg PO Q6HR PRN PRN Reason: Pain or Fever > 38C (100.4F) Magnesium Oxide (Magnesium Oxide 400 Mg Tablet) 400 mg PO DAILY [facility] Last Admin: 02/11/22 07:51 Dose: 400 mg Multivitamins (Multivitamin Tablet) 1 tab PO DAILY MARY Last Admin: 02/11/22 07:51 Dose: 1 tab Polyethylene Glycol (Polyethylene Glycol 3350 17 Gm Packet) 17 gm PO DAILY [facility] Last Admin: 02/11/22 07:52 Dose: Not Given Senna (Senna 8.6 Mg Tablet) 8.6 - 17.2 mg PO DAILY PRN PRN Reason: Constipation Last Admin: 03/05/22 08:12 Dose: 8.6 mg Thiamine HCl (Thiamine 100 Mg Tablet) 100 mg PO DAILY MARY Last Admin: 02/11/22 07:51 Dose: 100 mg Magnesium Oxide [Mag Ox] 400 mg PO DAILY 12/01/21 Multivitamin [Theragran] 1 each PO DAILY 12/01/21
[2022-02-12] MEDS: polyethylene glycoL 3350 17 GM PACKET PO SCH (14:24)
[2022-02-12] MEDS: MULTIVITAMIN TABLET PO SCH (14:24)
[2022-02-12] MEDS: MAGNESIUM OXIDE 400 MG TABLET PO SCH (14:24)
[2022-02-12] MEDS: THIAMINE 100 MG TABLET PO SCH (14:24)
[2022-02-13] MEDS: THIAMINE 100 MG TABLET PO SCH (09:08)
[2022-02-13] MEDS: MULTIVITAMIN TABLET PO SCH (09:08)
[2022-02-13] MEDS: MAGNESIUM OXIDE 400 MG TABLET PO SCH (09:08)
[2022-02-13] MEDS: polyethylene glycoL 3350 17 GM PACKET PO SCH (09:09)
--- NOTE | 2022-02-13 14:39 | PROVIDER PROGRESS NOTE ---
Assessment/Plan - Problem List (1) Metabolic encephalopathy Assessment/Plan: improved. pt is alert and oriented to himself, location, event and vague on the time. otherwise pt ambulate, eat, and Hemodynamic stable. (2) Wernicke-Korsakoff syndrome (alcoholic) Assessment/Plan: Significantly improved. pt is comfort and he can ambulate without distress. (3) COVID-19 Impression: Asymptomatic, pt has no respiratory distress. He is off of contact precautions. (4) Homeless single person Impression: Continuing to work on disposition. Guardianship is pending, We appreciate social work input and disposition planning for pt. (5) Alcohol abuse Impression: He initially went through alcohol withdrawal but this is now resolved. We are continuing thiamine supplementation daily. he had over 2 months without drinking alcohol (6)alcoholic cirrhosis Patient had history of chronic Alcoholism and Elevated liver enzyme. Now Patient is stable, Not drink alcohol for over 2 months. Patient had extensive education for quitting of alcohol. Social work was consulted to help patient Quit alcohol. Patient repeatedly state he will quit alcohol - Current Meds Current Meds: Current Medications Generic Name Dose Route Start Last Admin Trade Name [place] PRN Reason Stop Dose Admin Docusate Sodium 250 - 500 mg 12/22/21 07:23 01/10/22 08:12 Docusate Sodium 250 Mg Capsule PO 250 mg DAILY PRN Administration Constipation Magnesium Oxide 400 mg 12/05/21 09:00 02/13/22 09:08 Magnesium Oxide 400 Mg Tablet PO 400 mg DAILY MARY Administration Multivitamins 1 tab 12/05/21 09:00 02/13/22 09:08 Multivitamin Tablet PO 1 tab DAILY MARY Administration Polyethylene Glycol 17 gm 12/09/21 14:00 02/13/22 09:09 Polyethylene Glycol 3350 17 Gm Packet PO Not Given DAILY MARY Senna 8.6 - 17.2 mg 12/22/21 07:23 01/10/22 08:12 Senna 8.6 Mg Tablet PO 8.6 mg DAILY PRN Administration Constipation Thiamine HCl 100 mg 12/04/21 09:00 02/13/22 09:08 Thiamine 100 Mg Tablet PO 100 mg DAILY MARY Administration - Lab Result Fish Bone Diagrams: 01/26/22 04:20 01/26/22 04:20 Subjective - Subjective Patient Reports: Resting Comfortably Nursing Reports: No Complaints Objective Vital Signs: Vital Signs - 24 hr 02/13/22 07:31 Temperature 36.4 C L Heart Rate [ 88 Brachial] Respiratory 16 Rate Blood Pressure 131/66 H [Right Brachial artery] O2 Saturation 96 Oxygen O2 Source Room air I&O (Last 24 Hrs): Intake and Output Totals x24h 02/11/22 02/12/22 02/13/22 23:59 23:59 23:59 Intake Total 2200 1416 2740 Balance 2200 1416 2740 General: Alert, Cooperative, No acute distress HEENT: Atraumatic Neck: Supple Lymphatic: no adenopathy Neuro: Alert, Non Focal Cardiovascular: Regular rate, Normal S1, Normal S2 Respiratory: Chest non-tender, No respiratory distress Abdomen: Normal bowel sounds, Soft, No tenderness Extremities: Normal pulses - Results Results: Laboratory Results WBC 5.3 x10^3/uL (4.8-10.8) 01/26/22 04:20 RBC 4.39 10^6/uL (4.70-6.10) L 01/26/22 04:20 Hgb 13.6 g/dL (14.0-18.0) L 01/26/22 04:20 Hct 41.1 % (42.0-52.0) L 01/26/22 04:20 MCV 93.6 fL (80.0-94.0) 01/26/22 04:20 MCH 31.0 pg (27.0-31.0) 01/26/22 04:20 MCHC 33.1 g/dL (32.0-36.0) 01/26/22 04:20 RDW 13.2 % (12.0-15.0) 01/26/22 04:20 Plt Count 131 10^3/uL (130-450) 01/26/22 04:20 MPV 12.8 fL (7.4-11.4) H 01/26/22 04:20 Neut # (Auto) 2.5 10^3/uL (1.5-6.6) 01/26/22 04:20 Lymph # (Auto) 1.8 10^3/uL (1.5-3.5) 01/26/22 04:20 [place] # (Auto) 0.6 10^3/uL (0.0-1.0) 01/26/22 04:20 Eos # (Auto) 0.2 10^3/uL (0.0-0.7) 01/26/22 04:20 Baso # (Auto) 0.1 10^3/uL (0.0-0.1) 01/26/22 04:20 Absolute Nucleated RBC 0.00 x10^3/uL 01/26/22 04:20 Nucleated RBC % 0.0 /100WBC 01/26/22 04:20 PT 15.1 secs (9.9-12.6) H 12/04/21 23:33 INR 1.4 (0.8-1.2) H 12/04/21 23:33 APTT 24.8 secs (24.9-33.3) L 12/03/21 18:20 Sodium 139 mmol/L (135-145) 01/26/22 04:20 Potassium 4.0 mmol/L (3.5-5.0) 01/26/22 04:20 Chloride 104 mmol/L (101-111) 01/26/22 04:20 Carbon Dioxide 25 mmol/L (21-32) 01/26/22 04:20 Anion Gap 10.0 (6-13) 01/26/22 04:20 BUN 17 mg/dL (6-20) 01/26/22 04:20 Creatinine 0.6 mg/dL (0.6-1.2) 01/26/22 04:20 Estimated GFR (MDRD) 137 (>89) 01/26/22 04:20 Glucose 154 mg/dL (70-100) H 01/26/22 04:20 Estimat Average Glucose 111 mg/dL (70-100) H 01/26/22 04:20 Hemoglobin A1c % 5.5 % (4.27-6.07) 01/26/22 04:20 Calcium 9.0 mg/dL (8.5-10.3) 01/26/22 04:20 Phosphorus 3.6 mg/dL (2.5-4.6) 12/06/21 07:04 Magnesium 2.0 mg/dL (1.7-2.8) 12/06/21 07:04 Total Bilirubin 0.5 mg/dL (0.2-1.0) 01/26/22 04:20 Direct Bilirubin 0.1 mg/dL (0.1-0.5) 01/26/22 04:20 AST 77 IU/L (10-42) H 01/26/22 04:20 ALT 104 IU/L (10-60) H 01/26/22 04:20 Alkaline Phosphatase 58 IU/L (42-121) 01/26/22 04:20 Ammonia 12.5 umol/L (7-35) 12/08/21 07:54 Total Protein 6.4 g/dL (6.7-8.2) L 01/26/22 04:20 Albumin 3.6 g/dL (3.2-5.5) 01/26/22 04:20 Globulin 2.8 g/dL (2.1-4.2) 01/26/22 04:20 Albumin/Globulin Ratio 1.1 (1.0-2.2) 12/12/21 08:07 Lipase 28 U/L (22-51) 12/06/21 07:04 Whole Bld Vitamin B1 TNP 12/04/21 16:52 Vitamin B12 317 pg/mL (180-914) 01/26/22 04:20 Folate 20.49 ng/mL (5.90 - >24.8) 01/26/22 04:20 TSH 1.25 uIU/mL (0.34-5.60) 12/03/21 18:20 Urine Color YELLOW 12/03/21 18:26 Urine Clarity CLEAR (CLEAR) 12/03/21 18:26 Urine pH 6.5 PH (5.0-7.5) 12/03/21 18:26 Ur Specific [place] 1.020 (1.002-1.030) 12/03/21 18:26 Urine Protein NEGATIVE mg/dL (NEGATIVE) 12/03/21 18:26 Urine Glucose (UA) NEGATIVE mg/dL (NEGATIVE) 12/03/21 18:26 Urine Ketones NEGATIVE mg/dL (NEGATIVE) 12/03/21 18:26 Urine Occult Blood NEGATIVE (NEGATIVE) 12/03/21 18:26 Urine Nitrite NEGATIVE (NEGATIVE) 12/03/21 18:26 Urine Bilirubin NEGATIVE (NEGATIVE) 12/03/21 18:26 Urine Urobilinogen 0.2 (NORMAL) E.U./dL (NORMAL) 12/03/21 18:26 Ur Leukocyte Esterase NEGATIVE (NEGATIVE) 12/03/21 18:26 Ur Microscopic Review NOT INDICATED 12/03/21 18:26 Urine Culture Comments NOT INDICATED 12/03/21 18:26 Nasal Adenovirus (PCR) NOT DETECTED 12/20/21 19:10 Nasal B. parapertussis DNA (PCR) NOT DETECTED 12/20/21 19:10 Nasal Coronavir 229E PCR NOT DETECTED 12/20/21 19:10 Nasal Coronavir HKU1 PCR NOT DETECTED 12/20/21 19:10 Nasal Coronavir NL63 PCR NOT DETECTED 12/20/21 19:10 Nasal Coronavir OC43 PCR NOT DETECTED 12/20/21 19:10 Nasal Enterovir/Rhinovir PCR NOT DETECTED 12/20/21 19:10 Nasal Influenza B PCR NOT DETECTED 12/20/21 19:10 Nasal Influenza A PCR NOT DETECTED 12/20/21 19:10 Nasal Parainfluen 1 PCR NOT DETECTED 12/20/21 19:10 Nasal Parainfluen 2 PCR NOT DETECTED 12/20/21 19:10 Nasal Parainfluen 3 PCR NOT DETECTED 12/20/21 19:10 Nasal Parainfluen 4 PCR NOT DETECTED 12/20/21 19:10 Nasal RSV (PCR) NOT DETECTED 12/20/21 19:10 Nasal B.pertussis DNA PCR NOT DETECTED 12/20/21 19:10 Nasal C.pneumoniae (PCR) NOT DETECTED 12/20/21 19:10 [place] Daniel Human Metapneumo PCR NOT DETECTED 12/20/21 19:10 Nasal M.pneumoniae (PCR) NOT DETECTED 12/20/21 19:10 Nasal SARS-CoV-2 (PCR) DETECTED A 12/20/21 19:10 Salicylates < 6.0 mg/dL 12/03/21 18:20 Urine Opiates Screen NEGATIVE (NEGATIVE) 12/03/21 18:26 Ur Oxycodone Screen NEGATIVE (NEGATIVE) 12/03/21 18:26 Urine Methadone Screen NEGATIVE (NEGATIVE) 12/03/21 18:26 Ur Propoxyphene Screen NEGATIVE (NEGATIVE) 12/03/21 18:26 Acetaminophen < 10 ug/mL (10-30) L 12/03/21 18:20 Ur Barbiturates Screen NEGATIVE (NEGATIVE) 12/03/21 18:26 Ur Tricyclics Screen NEGATIVE (NEGATIVE) 12/03/21 18:26 Ur Phencyclidine Scrn NEGATIVE (NEGATIVE) 12/03/21 18:26 Ur Amphetamine Screen NEGATIVE (NEGATIVE) 12/03/21 18:26 U Methamphetamines Scrn NEGATIVE (NEGATIVE) 12/03/21 18:26 U Benzodiazepines Scrn POSITIVE (NEGATIVE) H 12/03/21 18:26 Urine Cocaine Screen NEGATIVE (NEGATIVE) 12/03/21 18:26 U Cannabinoids Screen NEGATIVE (NEGATIVE) 12/03/21 18:26 Ethyl Alcohol < 5.0 mg/dL 12/03/21 18:20 Sepsis Event Note (H) - Evaluation Current Stage of Sepsis: Ruled out ABX Reporting Has patient been on IV antibiotics over the past 48 hours?: No Current Medications - Current Medications Current Medications: Active Medications Docusate Sodium (Docusate Sodium 250 Mg Capsule) 250 - 500 mg PO DAILY PRN PRN Reason: Constipation Last Admin: 01/10/22 08:12 Dose: 250 mg Ibuprofen (Ibuprofen 400 Mg Tablet) 400 mg PO Q6HR PRN PRN Reason: Pain or Fever > 38C (100.4F) Magnesium Oxide (Magnesium Oxide 400 Mg Tablet) 400 mg PO DAILY [facility] Last Admin: 02/13/22 09:08 Dose: 400 mg Multivitamins (Multivitamin Tablet) 1 tab PO DAILY [facility] Last Admin: 02/13/22 09:08 Dose: 1 tab Polyethylene Glycol (Polyethylene Glycol 3350 17 Gm Packet) 17 gm PO DAILY [facility] Last Admin: 02/13/22 09:09 Dose: Not Given Senna (Senna 8.6 Mg Tablet) 8.6 - 17.2 mg PO DAILY PRN PRN Reason: Constipation Last Admin: 01/10/22 08:12 Dose: 8.6 mg Thiamine HCl (Thiamine 100 Mg Tablet) 100 mg PO DAILY [facility] Last Admin: 02/13/22 09:08 Dose: 100 mg Magnesium Oxide [Mag Ox] 400 mg PO DAILY 12/01/21 Multivitamin [Theragran] 1 each PO DAILY 12/01/21
--- NOTE | 2022-02-14 07:27 | PROVIDER PROGRESS NOTE ---
Assessment/Plan - Problem List (1) Metabolic encephalopathy Assessment/Plan: Patient has history of chronic alcohol abuse. He had a formal evaluation by telepsych on December 07 06/27/2022. He cannot make decisions for himself. He needs a guardian and will also need permanent placement. Daughter is not able to to accommodate the patient at her house due to behavioral disturbances on his part and she has a little child at home. Continue vitamin B1 100 mg p.o. daily. (3) Alcohol abuse Assessment/Plan: Patient has not had any alcoholic beverage throughout this time in the hospital. (4) COVID-19 Assessment/Plan: This was diagnosed on 12/03/2021. Patient is currently asymptomatic and breathing comfortably on room air Repeat Covid test on 12/20/2021 was positive. Patient is now out of isolation (5) Homeless single person Assessment/Plan: Social work helping to facilitate placement. This has been particularly difficult due to some behavioral problems. - Current Meds Current Meds: Current Medications Generic Name Dose Route Start Last Admin Trade Name Debby PRN Reason Stop Dose Admin Docusate Sodium 250 - 500 mg 12/22/21 07:23 01/10/22 08:12 Docusate Sodium 250 Mg Capsule PO 250 mg DAILY PRN Administration Constipation Magnesium Oxide 400 mg 12/05/21 09:00 02/13/22 09:08 Magnesium Oxide 400 Mg Tablet PO 400 mg DAILY MARY Administration Multivitamins 1 tab 12/05/21 09:00 02/13/22 09:08 Multivitamin Tablet PO 1 tab DAILY MARY Administration Polyethylene Glycol 17 gm 12/09/21 14:00 02/13/22 09:09 Polyethylene Glycol 3350 17 Gm Packet PO Not Given DAILY MARY Senna 8.6 - 17.2 mg 12/22/21 07:23 01/10/22 08:12 Senna 8.6 Mg Tablet PO 8.6 mg DAILY PRN Administration Constipation Thiamine HCl 100 mg 12/04/21 09:00 02/13/22 09:08 Thiamine 100 Mg Tablet PO 100 mg DAILY MARY Administration - Lab Result Fish Bone Diagrams: 01/26/22 04:20 01/26/22 04:20 Subjective - Subjective Patient Reports: Other (Patient was resting comfortably in bed. He denied any complaints.) Objective Vital Signs: Vital Signs - 24 hr 02/13/22 07:31 Temperature 36.4 C L Heart Rate [ 88 Brachial] Respiratory 16 Rate Blood Pressure 131/66 H [Right Brachial artery] O2 Saturation 96 Oxygen O2 Source Room air I&O (Last 24 Hrs): Intake and Output Totals x24h 02/12/22 02/13/22 02/14/22 23:59 23:59 23:59 Intake Total 1416 3790 240 Balance 1416 3790 240 Comments/Notes: General: Alert, Oriented x3, No acute distress HEENT: PERRLA, EOMI Neck: Supple, No JVD Neuro: Alert, Non Focal, Oriented Times 3 Cardiovascular: Regular rate, No murmurs Respiratory: Chest non-tender, No respiratory distress, Breath sounds nml Abdomen: Normal bowel sounds, Soft, No tenderness, No masses Extremities: No clubbing, No edema Skin: No rashes, No breakdown - Results Results: Laboratory Results WBC 5.3 x10^3/uL (4.8-10.8) 01/26/22 04:20 RBC 4.39 10^6/uL (4.70-6.10) L 01/26/22 04:20 Hgb 13.6 g/dL (14.0-18.0) L 01/26/22 04:20 Hct 41.1 % (42.0-52.0) L 01/26/22 04:20 MCV 93.6 fL (80.0-94.0) 01/26/22 04:20 MCH 31.0 pg (27.0-31.0) 01/26/22 04:20 MCHC 33.1 g/dL (32.0-36.0) 01/26/22 04:20 RDW 13.2 % (12.0-15.0) 01/26/22 04:20 Plt Count 131 10^3/uL (130-450) 01/26/22 04:20 MPV 12.8 fL (7.4-11.4) H 01/26/22 04:20 Neut # (Auto) 2.5 10^3/uL (1.5-6.6) 01/26/22 04:20 Lymph # (Auto) 1.8 10^3/uL (1.5-3.5) 01/26/22 04:20 [place] # (Auto) 0.6 10^3/uL (0.0-1.0) 01/26/22 04:20 Eos # (Auto) 0.2 10^3/uL (0.0-0.7) 01/26/22 04:20 Baso # (Auto) 0.1 10^3/uL (0.0-0.1) 01/26/22 04:20 Absolute Nucleated RBC 0.00 x10^3/uL 01/26/22 04:20 Nucleated RBC % 0.0 /100WBC 01/26/22 04:20 PT 15.1 secs (9.9-12.6) H 12/04/21 23:33 INR 1.4 (0.8-1.2) H 12/04/21 23:33 APTT 24.8 secs (24.9-33.3) L 12/03/21 18:20 Sodium 139 mmol/L (135-145) 01/26/22 04:20 Potassium 4.0 mmol/L (3.5-5.0) 01/26/22 04:20 Chloride 104 mmol/L (101-111) 01/26/22 04:20 Carbon Dioxide 25 mmol/L (21-32) 01/26/22 04:20 Anion Gap 10.0 (6-13) 01/26/22 04:20 BUN 17 mg/dL (6-20) 01/26/22 04:20 Creatinine 0.6 mg/dL (0.6-1.2) 01/26/22 04:20 Estimated GFR (MDRD) 137 (>89) 01/26/22 04:20 Glucose 154 mg/dL (70-100) H 01/26/22 04:20 Estimat Average Glucose 111 mg/dL (70-100) H 01/26/22 04:20 Hemoglobin A1c % 5.5 % (4.27-6.07) 01/26/22 04:20 Calcium 9.0 mg/dL (8.5-10.3) 01/26/22 04:20 Phosphorus 3.6 mg/dL (2.5-4.6) 12/06/21 07:04 Magnesium 2.0 mg/dL (1.7-2.8) 12/06/21 07:04 Total Bilirubin 0.5 mg/dL (0.2-1.0) 01/26/22 04:20 Direct Bilirubin 0.1 mg/dL (0.1-0.5) 01/26/22 04:20 AST 77 IU/L (10-42) H 01/26/22 04:20 ALT 104 IU/L (10-60) H 01/26/22 04:20 Alkaline Phosphatase 58 IU/L (42-121) 01/26/22 04:20 Ammonia 12.5 umol/L (7-35) 12/08/21 07:54 Total Protein 6.4 g/dL (6.7-8.2) L 01/26/22 04:20 Albumin 3.6 g/dL (3.2-5.5) 01/26/22 04:20 Globulin 2.8 g/dL (2.1-4.2) 01/26/22 04:20 Albumin/Globulin Ratio 1.1 (1.0-2.2) 12/12/21 08:07 Lipase 28 U/L (22-51) 12/06/21 07:04 Whole Bld Vitamin B1 TNP 12/04/21 16:52 Vitamin B12 317 pg/mL (180-914) 01/26/22 04:20 Folate 20.49 ng/mL (5.90 - >24.8) 01/26/22 04:20 TSH 1.25 uIU/mL (0.34-5.60) 12/03/21 18:20 Urine Color YELLOW 12/03/21 18:26 Urine Clarity CLEAR (CLEAR) 12/03/21 18:26 Urine pH 6.5 PH (5.0-7.5) 12/03/21 18:26 Ur Specific [place] 1.020 (1.002-1.030) 12/03/21 18:26 Urine Protein NEGATIVE mg/dL (NEGATIVE) 12/03/21 18:26 Urine Glucose (UA) NEGATIVE mg/dL (NEGATIVE) 12/03/21 18:26 Urine Ketones NEGATIVE mg/dL (NEGATIVE) 12/03/21 18:26 Urine Occult Blood NEGATIVE (NEGATIVE) 12/03/21 18:26 Urine Nitrite NEGATIVE (NEGATIVE) 12/03/21 18:26 Urine Bilirubin NEGATIVE (NEGATIVE) 12/03/21 18:26 Urine Urobilinogen 0.2 (NORMAL) E.U./dL (NORMAL) 12/03/21 18:26 Ur Leukocyte Esterase NEGATIVE (NEGATIVE) 12/03/21 18:26 Ur Microscopic Review NOT INDICATED 12/03/21 18:26 Urine Culture Comments NOT INDICATED 12/03/21 18:26 Nasal Adenovirus (PCR) NOT DETECTED 12/20/21 19:10 Nasal B. parapertussis DNA (PCR) NOT DETECTED 12/20/21 19:10 Nasal Coronavir 229E PCR NOT DETECTED 12/20/21 19:10 Nasal Coronavir HKU1 PCR NOT DETECTED 12/20/21 19:10 Nasal Coronavir NL63 PCR NOT DETECTED 12/20/21 19:10 Nasal Coronavir OC43 PCR NOT DETECTED 12/20/21 19:10 Nasal Enterovir/Rhinovir PCR NOT DETECTED 12/20/21 19:10 Nasal Influenza B PCR NOT DETECTED 12/20/21 19:10 Nasal Influenza A PCR NOT DETECTED 12/20/21 19:10 Nasal Parainfluen 1 PCR NOT DETECTED 12/20/21 19:10 Nasal Parainfluen 2 PCR NOT DETECTED 12/20/21 19:10 Nasal Parainfluen 3 PCR NOT DETECTED 12/20/21 19:10 Nasal Parainfluen 4 PCR NOT DETECTED 12/20/21 19:10 Nasal RSV (PCR) NOT DETECTED 12/20/21 19:10 Nasal B.pertussis DNA PCR NOT DETECTED 12/20/21 19:10 Nasal C.pneumoniae (PCR) NOT DETECTED 12/20/21 19:10 Juan Daniel Human Metapneumo PCR NOT DETECTED 12/20/21 19:10 Nasal M.pneumoniae (PCR) NOT DETECTED 12/20/21 19:10 Nasal SARS-CoV-2 (PCR) DETECTED A 12/20/21 19:10 Salicylates < 6.0 mg/dL 12/03/21 18:20 Urine Opiates Screen NEGATIVE (NEGATIVE) 12/03/21 18:26 Ur Oxycodone Screen NEGATIVE (NEGATIVE) 12/03/21 18:26 Urine Methadone Screen NEGATIVE (NEGATIVE) 12/03/21 18:26 Ur Propoxyphene Screen NEGATIVE (NEGATIVE) 12/03/21 18:26 Acetaminophen < 10 ug/mL (10-30) L 12/03/21 18:20 Ur Barbiturates Screen NEGATIVE (NEGATIVE) 12/03/21 18:26 Ur Tricyclics Screen NEGATIVE (NEGATIVE) 12/03/21 18:26 Ur Phencyclidine Scrn NEGATIVE (NEGATIVE) 12/03/21 18:26 Ur Amphetamine Screen NEGATIVE (NEGATIVE) 12/03/21 18:26 U Methamphetamines Scrn NEGATIVE (NEGATIVE) 12/03/21 18:26 U Benzodiazepines Scrn POSITIVE (NEGATIVE) H 12/03/21 18:26 Urine Cocaine Screen NEGATIVE (NEGATIVE) 12/03/21 18:26 U Cannabinoids Screen NEGATIVE (NEGATIVE) 12/03/21 18:26 Ethyl Alcohol < 5.0 mg/dL 12/03/21 18:20 Sepsis Event Note (H) - Evaluation Current Stage of Sepsis: Ruled out ABX Reporting Has patient been on IV antibiotics over the past 48 hours?: No
[2022-02-14] MEDS: MULTIVITAMIN TABLET PO SCH (09:22)
[2022-02-14] MEDS: polyethylene glycoL 3350 17 GM PACKET PO SCH (09:22)
[2022-02-14] MEDS: THIAMINE 100 MG TABLET PO SCH (09:22)
[2022-02-14] MEDS: MAGNESIUM OXIDE 400 MG TABLET PO SCH (09:22)
--- NOTE | 2022-02-15 07:17 | PROVIDER PROGRESS NOTE ---
Assessment/Plan - Problem List (1) Metabolic encephalopathy Assessment/Plan: Patient has history of chronic alcohol abuse. He had a formal evaluation by telepsych on December 07 06/27/2022. He cannot make decisions for himself. He needs a guardian and will also need permanent placement. Daughter is not able to to accommodate the patient at her house due to behavioral disturbances on his part and she has a little child at home. Continue vitamin B1 100 mg p.o. daily. (3) Alcohol abuse Assessment/Plan: Patient has not had any alcoholic beverage throughout this time in the hospital. (4) COVID-19 Assessment/Plan: This was diagnosed on 12/03/2021. Patient is currently asymptomatic and breathing comfortably on room air Repeat Covid test on 12/20/2021 was positive. Patient is now out of isolation (5) Homeless single person Assessment/Plan: Social work helping to facilitate placement. This has been particularly difficult due to some behavioral problems. - Current Meds Current Meds: Current Medications Generic Name Dose Route Start Last Admin Trade Name Debby PRN Reason Stop Dose Admin Docusate Sodium 250 - 500 mg 12/22/21 07:23 01/10/22 08:12 Docusate Sodium 250 Mg Capsule PO 250 mg DAILY PRN Administration Constipation Magnesium Oxide 400 mg 12/05/21 09:00 02/14/22 09:22 Magnesium Oxide 400 Mg Tablet PO 400 mg DAILY MARY Administration Multivitamins 1 tab 12/05/21 09:00 02/14/22 09:22 Multivitamin Tablet PO 1 tab DAILY MARY Administration Senna 8.6 - 17.2 mg 12/22/21 07:23 01/10/22 08:12 Senna 8.6 Mg Tablet PO 8.6 mg DAILY PRN Administration Constipation Thiamine HCl 100 mg 12/04/21 09:00 02/14/22 09:22 Thiamine 100 Mg Tablet PO 100 mg DAILY MARY Administration - Lab Result Fish Bone Diagrams: 01/26/22 04:20 01/26/22 04:20 Subjective - Subjective Patient Reports: Other (Patient was resting comfortably in bed. He denied any complaints.) Objective Vital Signs: Vital Signs - 24 hr 02/14/22 02/14/22 09:25 15:59 Temperature 36.3 C L 36.5 C Heart Rate [ 78 72 Brachial] Respiratory 20 16 Rate Blood Pressure 116/70 [Right Brachial artery] Blood Pressure 125/67 [Right Radial artery] O2 Saturation 97 97 Oxygen O2 Source Room air I&O (Last 24 Hrs): Intake and Output Totals x24h 02/13/22 02/14/22 02/15/22 23:59 23:59 23:59 Intake Total 3790 1900 500 Balance 3790 1900 500 Comments/Notes: General: Alert, Oriented x3, No acute distress HEENT: PERRLA, EOMI Neck: Supple, No JVD Neuro: Alert, Non Focal, Oriented Times 3 Cardiovascular: Regular rate, No murmurs Respiratory: Chest non-tender, No respiratory distress, Breath sounds nml Abdomen: Normal bowel sounds, Soft, No tenderness, No masses Extremities: No clubbing, No edema Skin: No rashes, No breakdown - Results Results: Laboratory Results WBC 5.3 x10^3/uL (4.8-10.8) 01/26/22 04:20 RBC 4.39 10^6/uL (4.70-6.10) L 01/26/22 04:20 Hgb 13.6 g/dL (14.0-18.0) L 01/26/22 04:20 Hct 41.1 % (42.0-52.0) L 01/26/22 04:20 MCV 93.6 fL (80.0-94.0) 01/26/22 04:20 MCH 31.0 pg (27.0-31.0) 01/26/22 04:20 MCHC 33.1 g/dL (32.0-36.0) 01/26/22 04:20 RDW 13.2 % (12.0-15.0) 01/26/22 04:20 Plt Count 131 10^3/uL (130-450) 01/26/22 04:20 MPV 12.8 fL (7.4-11.4) H 01/26/22 04:20 Neut # (Auto) 2.5 10^3/uL (1.5-6.6) 01/26/22 04:20 Lymph # (Auto) 1.8 10^3/uL (1.5-3.5) 01/26/22 04:20 [place] # (Auto) 0.6 10^3/uL (0.0-1.0) 01/26/22 04:20 Eos # (Auto) 0.2 10^3/uL (0.0-0.7) 01/26/22 04:20 Baso # (Auto) 0.1 10^3/uL (0.0-0.1) 01/26/22 04:20 Absolute Nucleated RBC 0.00 x10^3/uL 01/26/22 04:20 Nucleated RBC % 0.0 /100WBC 01/26/22 04:20 PT 15.1 secs (9.9-12.6) H 12/04/21 23:33 INR 1.4 (0.8-1.2) H 12/04/21 23:33 APTT 24.8 secs (24.9-33.3) L 12/03/21 18:20 Sodium 139 mmol/L (135-145) 01/26/22 04:20 Potassium 4.0 mmol/L (3.5-5.0) 01/26/22 04:20 Chloride 104 mmol/L (101-111) 01/26/22 04:20 Carbon Dioxide 25 mmol/L (21-32) 01/26/22 04:20 Anion Gap 10.0 (6-13) 01/26/22 04:20 BUN 17 mg/dL (6-20) 01/26/22 04:20 Creatinine 0.6 mg/dL (0.6-1.2) 01/26/22 04:20 Estimated GFR (MDRD) 137 (>89) 01/26/22 04:20 Glucose 154 mg/dL (70-100) H 01/26/22 04:20 Estimat Average Glucose 111 mg/dL (70-100) H 01/26/22 04:20 Hemoglobin A1c % 5.5 % (4.27-6.07) 01/26/22 04:20 Calcium 9.0 mg/dL (8.5-10.3) 01/26/22 04:20 Phosphorus 3.6 mg/dL (2.5-4.6) 12/06/21 07:04 Magnesium 2.0 mg/dL (1.7-2.8) 12/06/21 07:04 Total Bilirubin 0.5 mg/dL (0.2-1.0) 01/26/22 04:20 Direct Bilirubin 0.1 mg/dL (0.1-0.5) 01/26/22 04:20 AST 77 IU/L (10-42) H 01/26/22 04:20 ALT 104 IU/L (10-60) H 01/26/22 04:20 Alkaline Phosphatase 58 IU/L (42-121) 01/26/22 04:20 Ammonia 12.5 umol/L (7-35) 12/08/21 07:54 Total Protein 6.4 g/dL (6.7-8.2) L 01/26/22 04:20 Albumin 3.6 g/dL (3.2-5.5) 01/26/22 04:20 Globulin 2.8 g/dL (2.1-4.2) 01/26/22 04:20 Albumin/Globulin Ratio 1.1 (1.0-2.2) 12/12/21 08:07 Lipase 28 U/L (22-51) 12/06/21 07:04 Whole Bld Vitamin B1 TNP 12/04/21 16:52 Vitamin B12 317 pg/mL (180-914) 01/26/22 04:20 Folate 20.49 ng/mL (5.90 - >24.8) 01/26/22 04:20 TSH 1.25 uIU/mL (0.34-5.60) 12/03/21 18:20 Urine Color YELLOW 12/03/21 18:26 Urine Clarity CLEAR (CLEAR) 12/03/21 18:26 Urine pH 6.5 PH (5.0-7.5) 12/03/21 18:26 Ur Specific [place] 1.020 (1.002-1.030) 12/03/21 18:26 Urine Protein NEGATIVE mg/dL (NEGATIVE) 12/03/21 18:26 Urine Glucose (UA) NEGATIVE mg/dL (NEGATIVE) 12/03/21 18:26 Urine Ketones NEGATIVE mg/dL (NEGATIVE) 12/03/21 18:26 Urine Occult Blood NEGATIVE (NEGATIVE) 12/03/21 18:26 Urine Nitrite NEGATIVE (NEGATIVE) 12/03/21 18:26 Urine Bilirubin NEGATIVE (NEGATIVE) 12/03/21 18:26 Urine Urobilinogen 0.2 (NORMAL) E.U./dL (NORMAL) 12/03/21 18:26 Ur Leukocyte Esterase NEGATIVE (NEGATIVE) 12/03/21 18:26 Ur Microscopic Review NOT INDICATED 12/03/21 18:26 Urine Culture Comments NOT INDICATED 12/03/21 18:26 Nasal Adenovirus (PCR) NOT DETECTED 12/20/21 19:10 Nasal B. parapertussis DNA (PCR) NOT DETECTED 12/20/21 19:10 Nasal Coronavir 229E PCR NOT DETECTED 12/20/21 19:10 Nasal Coronavir HKU1 PCR NOT DETECTED 12/20/21 19:10 Nasal Coronavir NL63 PCR NOT DETECTED 12/20/21 19:10 Nasal Coronavir OC43 PCR NOT DETECTED 12/20/21 19:10 Nasal Enterovir/Rhinovir PCR NOT DETECTED 12/20/21 19:10 Nasal Influenza B PCR NOT DETECTED 12/20/21 19:10 Nasal Influenza A PCR NOT DETECTED 12/20/21 19:10 Nasal Parainfluen 1 PCR NOT DETECTED 12/20/21 19:10 Nasal Parainfluen 2 PCR NOT DETECTED 12/20/21 19:10 Nasal Parainfluen 3 PCR NOT DETECTED 12/20/21 19:10 Nasal Parainfluen 4 PCR NOT DETECTED 12/20/21 19:10 Nasal RSV (PCR) NOT DETECTED 12/20/21 19:10 Nasal B.pertussis DNA PCR NOT DETECTED 12/20/21 19:10 Nasal C.pneumoniae (PCR) NOT DETECTED 12/20/21 19:10 Juan Daniel Human Metapneumo PCR NOT DETECTED 12/20/21 19:10 Nasal M.pneumoniae (PCR) NOT DETECTED 12/20/21 19:10 Nasal SARS-CoV-2 (PCR) DETECTED A 12/20/21 19:10 Salicylates < 6.0 mg/dL 12/03/21 18:20 Urine Opiates Screen NEGATIVE (NEGATIVE) 12/03/21 18:26 Ur Oxycodone Screen NEGATIVE (NEGATIVE) 12/03/21 18:26 Urine Methadone Screen NEGATIVE (NEGATIVE) 12/03/21 18:26 Ur Propoxyphene Screen NEGATIVE (NEGATIVE) 12/03/21 18:26 Acetaminophen < 10 ug/mL (10-30) L 12/03/21 18:20 Ur Barbiturates Screen NEGATIVE (NEGATIVE) 12/03/21 18:26 Ur Tricyclics Screen NEGATIVE (NEGATIVE) 12/03/21 18:26 Ur Phencyclidine Scrn NEGATIVE (NEGATIVE) 12/03/21 18:26 Ur Amphetamine Screen NEGATIVE (NEGATIVE) 12/03/21 18:26 U Methamphetamines Scrn NEGATIVE (NEGATIVE) 12/03/21 18:26 U Benzodiazepines Scrn POSITIVE (NEGATIVE) H 12/03/21 18:26 Urine Cocaine Screen NEGATIVE (NEGATIVE) 12/03/21 18:26 U Cannabinoids Screen NEGATIVE (NEGATIVE) 12/03/21 18:26 Ethyl Alcohol < 5.0 mg/dL 12/03/21 18:20 Sepsis Event Note (H) - Evaluation Current Stage of Sepsis: Ruled out ABX Reporting Has patient been on IV antibiotics over the past 48 hours?: No
[2022-02-15] MEDS: MULTIVITAMIN TABLET PO SCH (07:24)
[2022-02-15] MEDS: MAGNESIUM OXIDE 400 MG TABLET PO SCH (07:24)
[2022-02-15] MEDS: THIAMINE 100 MG TABLET PO SCH (07:24)
--- NOTE | 2022-02-16 07:16 | PROVIDER PROGRESS NOTE ---
Assessment/Plan - Problem List (1) Metabolic encephalopathy Assessment/Plan: Patient has history of chronic alcohol abuse. He had a formal evaluation by telepsych on December 07 06/27/2022. He cannot make decisions for himself. He needs a guardian and will also need permanent placement. Daughter is not able to to accommodate the patient at her house due to behavioral disturbances on his part and she has a little child at home. Continue vitamin B1 100 mg p.o. daily. (3) Alcohol abuse Assessment/Plan: Patient has not had any alcoholic beverage throughout this time in the hospital. (4) COVID-19 Assessment/Plan: This was diagnosed on 12/03/2021. Patient is currently asymptomatic and breathing comfortably on room air Repeat Covid test on 12/20/2021 was positive. Patient is now out of isolation (5) Homeless single person Assessment/Plan: Social work helping to facilitate placement. This has been particularly difficult due to some behavioral problems. - Current Meds Current Meds: Current Medications Generic Name Dose Route Start Last Admin Trade Name Debby PRN Reason Stop Dose Admin Docusate Sodium 250 - 500 mg 12/22/21 07:23 01/10/22 08:12 Docusate Sodium 250 Mg Capsule PO 250 mg DAILY PRN Administration Constipation Magnesium Oxide 400 mg 12/05/21 09:00 02/15/22 07:24 Magnesium Oxide 400 Mg Tablet PO 400 mg DAILY MARY Administration Multivitamins 1 tab 12/05/21 09:00 02/15/22 07:24 Multivitamin Tablet PO 1 tab DAILY MARY Administration Senna 8.6 - 17.2 mg 12/22/21 07:23 01/10/22 08:12 Senna 8.6 Mg Tablet PO 8.6 mg DAILY PRN Administration Constipation Thiamine HCl 100 mg 12/04/21 09:00 02/15/22 07:24 Thiamine 100 Mg Tablet PO 100 mg DAILY MARY Administration - Lab Result Fish Bone Diagrams: 01/26/22 04:20 01/26/22 04:20 Subjective - Subjective Patient Reports: Other (Patient was resting comfortably in bed. He denied any complaints.) Objective Vital Signs: Vital Signs - 24 hr 02/15/22 02/15/22 07:22 07:47 Temperature 36.5 C 36.3 C L Heart Rate [ 79 76 Brachial] Respiratory 16 16 Rate Blood Pressure 123/80 [Right Brachial artery] Blood Pressure 133/87 H [Right Radial artery] O2 Saturation 97 96 Oxygen O2 Source Room air I&O (Last 24 Hrs): Intake and Output Totals x24h 02/14/22 02/15/22 02/16/22 23:59 23:59 23:59 Intake Total 1899 2936 240 Balance 1899 2936 240 Comments/Notes: General: Alert, Oriented x3, No acute distress HEENT: PERRLA, EOMI Neck: Supple, No JVD Neuro: Alert, Non Focal, Oriented Times 3 Cardiovascular: Regular rate, No murmurs Respiratory: Chest non-tender, No respiratory distress, Breath sounds nml Abdomen: Normal bowel sounds, Soft, No tenderness, No masses Extremities: No clubbing, No edema Skin: No rashes, No breakdown - Results Results: Laboratory Results WBC 5.3 x10^3/uL (4.8-10.8) 01/26/22 04:20 RBC 4.39 10^6/uL (4.70-6.10) L 01/26/22 04:20 Hgb 13.6 g/dL (14.0-18.0) L 01/26/22 04:20 Hct 41.1 % (42.0-52.0) L 01/26/22 04:20 MCV 93.6 fL (80.0-94.0) 01/26/22 04:20 MCH 31.0 pg (27.0-31.0) 01/26/22 04:20 MCHC 33.1 g/dL (32.0-36.0) 01/26/22 04:20 RDW 13.2 % (12.0-15.0) 01/26/22 04:20 Plt Count 131 10^3/uL (130-450) 01/26/22 04:20 MPV 12.8 fL (7.4-11.4) H 01/26/22 04:20 Neut # (Auto) 2.5 10^3/uL (1.5-6.6) 01/26/22 04:20 Lymph # (Auto) 1.8 10^3/uL (1.5-3.5) 01/26/22 04:20 [place] # (Auto) 0.6 10^3/uL (0.0-1.0) 01/26/22 04:20 Eos # (Auto) 0.2 10^3/uL (0.0-0.7) 01/26/22 04:20 Baso # (Auto) 0.1 10^3/uL (0.0-0.1) 01/26/22 04:20 Absolute Nucleated RBC 0.00 x10^3/uL 01/26/22 04:20 Nucleated RBC % 0.0 /100WBC 01/26/22 04:20 PT 15.1 secs (9.9-12.6) H 12/04/21 23:33 INR 1.4 (0.8-1.2) H 12/04/21 23:33 APTT 24.8 secs (24.9-33.3) L 12/03/21 18:20 Sodium 139 mmol/L (135-145) 01/26/22 04:20 Potassium 4.0 mmol/L (3.5-5.0) 01/26/22 04:20 Chloride 104 mmol/L (101-111) 01/26/22 04:20 Carbon Dioxide 25 mmol/L (21-32) 01/26/22 04:20 Anion Gap 10.0 (6-13) 01/26/22 04:20 BUN 17 mg/dL (6-20) 01/26/22 04:20 Creatinine 0.6 mg/dL (0.6-1.2) 01/26/22 04:20 Estimated GFR (MDRD) 137 (>89) 01/26/22 04:20 Glucose 154 mg/dL (70-100) H 01/26/22 04:20 Estimat Average Glucose 111 mg/dL (70-100) H 01/26/22 04:20 Hemoglobin A1c % 5.5 % (4.27-6.07) 01/26/22 04:20 Calcium 9.0 mg/dL (8.5-10.3) 01/26/22 04:20 Phosphorus 3.6 mg/dL (2.5-4.6) 12/06/21 07:04 Magnesium 2.0 mg/dL (1.7-2.8) 12/06/21 07:04 Total Bilirubin 0.5 mg/dL (0.2-1.0) 01/26/22 04:20 Direct Bilirubin 0.1 mg/dL (0.1-0.5) 01/26/22 04:20 AST 77 IU/L (10-42) H 01/26/22 04:20 ALT 104 IU/L (10-60) H 01/26/22 04:20 Alkaline Phosphatase 58 IU/L (42-121) 01/26/22 04:20 Ammonia 12.5 umol/L (7-35) 12/08/21 07:54 Total Protein 6.4 g/dL (6.7-8.2) L 01/26/22 04:20 Albumin 3.6 g/dL (3.2-5.5) 01/26/22 04:20 Globulin 2.8 g/dL (2.1-4.2) 01/26/22 04:20 Albumin/Globulin Ratio 1.1 (1.0-2.2) 12/12/21 08:07 Lipase 28 U/L (22-51) 12/06/21 07:04 Whole Bld Vitamin B1 TNP 12/04/21 16:52 Vitamin B12 317 pg/mL (180-914) 01/26/22 04:20 Folate 20.49 ng/mL (5.90 - >24.8) 01/26/22 04:20 TSH 1.25 uIU/mL (0.34-5.60) 12/03/21 18:20 Urine Color YELLOW 12/03/21 18:26 Urine Clarity CLEAR (CLEAR) 12/03/21 18:26 Urine pH 6.5 PH (5.0-7.5) 12/03/21 18:26 Ur Specific [place] 1.020 (1.002-1.030) 12/03/21 18:26 Urine Protein NEGATIVE mg/dL (NEGATIVE) 12/03/21 18:26 Urine Glucose (UA) NEGATIVE mg/dL (NEGATIVE) 12/03/21 18:26 Urine Ketones NEGATIVE mg/dL (NEGATIVE) 12/03/21 18:26 Urine Occult Blood NEGATIVE (NEGATIVE) 12/03/21 18:26 Urine Nitrite NEGATIVE (NEGATIVE) 12/03/21 18:26 Urine Bilirubin NEGATIVE (NEGATIVE) 12/03/21 18:26 Urine Urobilinogen 0.2 (NORMAL) E.U./dL (NORMAL) 12/03/21 18:26 Ur Leukocyte Esterase NEGATIVE (NEGATIVE) 12/03/21 18:26 Ur Microscopic Review NOT INDICATED 12/03/21 18:26 Urine Culture Comments NOT INDICATED 12/03/21 18:26 Nasal Adenovirus (PCR) NOT DETECTED 12/20/21 19:10 Nasal B. parapertussis DNA (PCR) NOT DETECTED 12/20/21 19:10 Nasal Coronavir 229E PCR NOT DETECTED 12/20/21 19:10 Nasal Coronavir HKU1 PCR NOT DETECTED 12/20/21 19:10 Nasal Coronavir NL63 PCR NOT DETECTED 12/20/21 19:10 Nasal Coronavir OC43 PCR NOT DETECTED 12/20/21 19:10 Nasal Enterovir/Rhinovir PCR NOT DETECTED 12/20/21 19:10 Nasal Influenza B PCR NOT DETECTED 12/20/21 19:10 Nasal Influenza A PCR NOT DETECTED 12/20/21 19:10 Nasal Parainfluen 1 PCR NOT DETECTED 12/20/21 19:10 Nasal Parainfluen 2 PCR NOT DETECTED 12/20/21 19:10 Nasal Parainfluen 3 PCR NOT DETECTED 12/20/21 19:10 Nasal Parainfluen 4 PCR NOT DETECTED 12/20/21 19:10 Nasal RSV (PCR) NOT DETECTED 12/20/21 19:10 Nasal B.pertussis DNA PCR NOT DETECTED 12/20/21 19:10 Nasal C.pneumoniae (PCR) NOT DETECTED 12/20/21 19:10 Juan Daniel Human Metapneumo PCR NOT DETECTED 12/20/21 19:10 Nasal M.pneumoniae (PCR) NOT DETECTED 12/20/21 19:10 Nasal SARS-CoV-2 (PCR) DETECTED A 12/20/21 19:10 Salicylates < 6.0 mg/dL 12/03/21 18:20 Urine Opiates Screen NEGATIVE (NEGATIVE) 12/03/21 18:26 Ur Oxycodone Screen NEGATIVE (NEGATIVE) 12/03/21 18:26 Urine Methadone Screen NEGATIVE (NEGATIVE) 12/03/21 18:26 Ur Propoxyphene Screen NEGATIVE (NEGATIVE) 12/03/21 18:26 Acetaminophen < 10 ug/mL (10-30) L 12/03/21 18:20 Ur Barbiturates Screen NEGATIVE (NEGATIVE) 12/03/21 18:26 Ur Tricyclics Screen NEGATIVE (NEGATIVE) 12/03/21 18:26 Ur Phencyclidine Scrn NEGATIVE (NEGATIVE) 12/03/21 18:26 Ur Amphetamine Screen NEGATIVE (NEGATIVE) 12/03/21 18:26 U Methamphetamines Scrn NEGATIVE (NEGATIVE) 12/03/21 18:26 U Benzodiazepines Scrn POSITIVE (NEGATIVE) H 12/03/21 18:26 Urine Cocaine Screen NEGATIVE (NEGATIVE) 12/03/21 18:26 U Cannabinoids Screen NEGATIVE (NEGATIVE) 12/03/21 18:26 Ethyl Alcohol < 5.0 mg/dL 12/03/21 18:20 Sepsis Event Note (H) - Evaluation Current Stage of Sepsis: Ruled out ABX Reporting Has patient been on IV antibiotics over the past 48 hours?: No
[2022-02-16] MEDS: THIAMINE 100 MG TABLET PO SCH (07:59)
[2022-02-16] MEDS: MAGNESIUM OXIDE 400 MG TABLET PO SCH (07:59)
[2022-02-16] MEDS: MULTIVITAMIN TABLET PO SCH (07:59)
[2022-02-17] MEDS: MAGNESIUM OXIDE 400 MG TABLET PO SCH (07:57)
[2022-02-17] MEDS: MULTIVITAMIN TABLET PO SCH (07:57)
[2022-02-17] MEDS: THIAMINE 100 MG TABLET PO SCH (07:57)
--- NOTE | 2022-02-17 11:10 | PROVIDER PROGRESS NOTE ---
Assessment/Plan - Problem List (1) Metabolic encephalopathy Assessment/Plan: 02/17, pt is eating his early lunch. pt ambulate, and is Hemodynamic stable. pt is alert and oriented but still Vague about the time. social welfare clerk is working for pt's Disposition planning, and pending on guardianship. improved. pt is alert and oriented to himself, location, event and vague on the time. otherwise pt ambulate, eat, and Hemodynamic stable. (2) COVID-19 Impression: Asymptomatic, pt has no respiratory distress. (3) Homeless single person Impression: Continuing to work on disposition. Guardianship is pending, We appreciate social work input and disposition planning for pt. (4) Alcohol abuse Impression: He initially went through alcohol withdrawal but this is now resolved. We are c ontinuing thiamine supplementation daily. he had over 2 months without drinking alcohol - Current Meds Current Meds: Current Medications Generic Name Dose Route Start Last Admin Trade Name Freq PRN Reason Stop Dose Admin Docusate Sodium 250 - 500 mg 12/22/21 07:23 01/10/22 08:12 Docusate Sodium 250 Mg Capsule PO 250 mg DAILY PRN Administration Constipation Magnesium Oxide 400 mg 12/05/21 09:00 02/17/22 07:57 Magnesium Oxide 400 Mg Tablet PO 400 mg DAILY MARY Administration Multivitamins 1 tab 12/05/21 09:00 02/17/22 07:57 Multivitamin Tablet PO 1 tab DAILY MARY Administration Senna 8.6 - 17.2 mg 12/22/21 07:23 01/10/22 08:12 Senna 8.6 Mg Tablet PO 8.6 mg DAILY PRN Administration Constipation Thiamine HCl 100 mg 12/04/21 09:00 02/17/22 07:57 Thiamine 100 Mg Tablet PO 100 mg DAILY MARY Administration - Lab Result Fish Bone Diagrams: 01/26/22 04:20 01/26/22 04:20 Subjective - Subjective Patient Reports: Resting Comfortably, No Complaints Objective Vital Signs: Vital Signs - 24 hr 02/17/22 07:25 Temperature 36.9 C Heart Rate [ 74 Brachial] Respiratory 18 Rate Blood Pressure 117/74 [Right Radial artery] O2 Saturation 95 Oxygen O2 Source Room air I&O (Last 24 Hrs): Intake and Output Totals x24h 04/10/22 04/11/22 04/12/22 23:59 23:59 23:59 Intake Total 2935 1999 960 Balance 2931999 960 General: Alert, Oriented x3, Cooperative, No acute distress HEENT: Atraumatic Neck: Supple Lymphatic: no adenopathy Neuro: Alert, Non Focal, Oriented Times 3 Cardiovascular: Regular rate, Normal S1, Normal S2 Respiratory: Chest non-tender, No respiratory distress Abdomen: Normal bowel sounds, Soft Extremities: Normal pulses - Results Results: Laboratory Results WBC 5.3 x10^3/uL (4.8-10.8) 01/26/22 04:20 RBC 4.39 10^6/uL (4.70-6.10) L 01/26/22 04:20 Hgb 13.6 g/dL (14.0-18.0) L 01/26/22 04:20 Hct 41.1 % (42.0-52.0) L 01/26/22 04:20 MCV 93.6 fL (80.0-94.0) 01/26/22 04:20 MCH 31.0 pg (27.0-31.0) 01/26/22 04:20 MCHC 33.1 g/dL (32.0-36.0) 01/26/22 04:20 RDW 13.2 % (12.0-15.0) 01/26/22 04:20 Plt Count 131 10^3/uL (130-450) 01/26/22 04:20 MPV 12.8 fL (7.4-11.4) H 01/26/22 04:20 Neut # (Auto) 2.5 10^3/uL (1.5-6.6) 01/26/22 04:20 Lymph # (Auto) 1.8 10^3/uL (1.5-3.5) 01/26/22 04:20 [place] # (Auto) 0.6 10^3/uL (0.0-1.0) 01/26/22 04:20 Eos # (Auto) 0.2 10^3/uL (0.0-0.7) 01/26/22 04:20 Baso # (Auto) 0.1 10^3/uL (0.0-0.1) 01/26/22 04:20 Absolute Nucleated RBC 0.00 x10^3/uL 01/26/22 04:20 Nucleated RBC % 0.0 /100WBC 01/26/22 04:20 PT 15.1 secs (9.9-12.6) H 12/04/21 23:33 INR 1.4 (0.8-1.2) H 12/04/21 23:33 APTT 24.8 secs (24.9-33.3) L 12/03/21 18:20 Sodium 139 mmol/L (135-145) 01/26/22 04:20 Potassium 4.0 mmol/L (3.5-5.0) 01/26/22 04:20 Chloride 104 mmol/L (101-111) 01/26/22 04:20 Carbon Dioxide 25 mmol/L (21-32) 01/26/22 04:20 Anion Gap 10.0 (6-13) 01/26/22 04:20 BUN 17 mg/dL (6-20) 01/26/22 04:20 Creatinine 0.6 mg/dL (0.6-1.2) 01/26/22 04:20 Estimated GFR (MDRD) 137 (>89) 01/26/22 04:20 Glucose 154 mg/dL (70-100) H 01/26/22 04:20 Estimat Average Glucose 111 mg/dL (70-100) H 01/26/22 04:20 Hemoglobin A1c % 5.5 % (4.27-6.07) 01/26/22 04:20 Calcium 9.0 mg/dL (8.5-10.3) 01/26/22 04:20 Phosphorus 3.6 mg/dL (2.5-4.6) 12/06/21 07:04 Magnesium 2.0 mg/dL (1.7-2.8) 12/06/21 07:04 Total Bilirubin 0.5 mg/dL (0.2-1.0) 01/26/22 04:20 Direct Bilirubin 0.1 mg/dL (0.1-0.5) 01/26/22 04:20 AST 77 IU/L (10-42) H 01/26/22 04:20 ALT 104 IU/L (10-60) H 01/26/22 04:20 Alkaline Phosphatase 58 IU/L (42-121) 01/26/22 04:20 Ammonia 12.5 umol/L (7-35) 12/08/21 07:54 Total Protein 6.4 g/dL (6.7-8.2) L 01/26/22 04:20 Albumin 3.6 g/dL (3.2-5.5) 01/26/22 04:20 Globulin 2.8 g/dL (2.1-4.2) 01/26/22 04:20 Albumin/Globulin Ratio 1.1 (1.0-2.2) 12/12/21 08:07 Lipase 28 U/L (22-51) 12/06/21 07:04 Whole Bld Vitamin B1 TNP 12/04/21 16:52 Vitamin B12 317 pg/mL (180-914) 01/26/22 04:20 Folate 20.49 ng/mL (5.90 - >24.8) 01/26/22 04:20 TSH 1.25 uIU/mL (0.34-5.60) 12/03/21 18:20 Urine Color YELLOW 12/03/21 18:26 Urine Clarity CLEAR (CLEAR) 12/03/21 18:26 Urine pH 6.5 PH (5.0-7.5) 12/03/21 18:26 Ur Specific [place] 1.020 (1.002-1.030) 12/03/21 18:26 Urine Protein NEGATIVE mg/dL (NEGATIVE) 12/03/21 18:26 Urine Glucose (UA) NEGATIVE mg/dL (NEGATIVE) 12/03/21 18:26 Urine Ketones NEGATIVE mg/dL (NEGATIVE) 12/03/21 18:26 Urine Occult Blood NEGATIVE (NEGATIVE) 12/03/21 18:26 Urine Nitrite NEGATIVE (NEGATIVE) 12/03/21 18:26 Urine Bilirubin NEGATIVE (NEGATIVE) 12/03/21 18:26 Urine Urobilinogen 0.2 (NORMAL) E.U./dL (NORMAL) 12/03/21 18:26 Ur Leukocyte Esterase NEGATIVE (NEGATIVE) 12/03/21 18:26 Ur Microscopic Review NOT INDICATED 12/03/21 18:26 Urine Culture Comments NOT INDICATED 12/03/21 18:26 Nasal Adenovirus (PCR) NOT DETECTED 12/20/21 19:10 Nasal B. parapertussis DNA (PCR) NOT DETECTED 12/20/21 19:10 Nasal Coronavir 229E PCR NOT DETECTED 12/20/21 19:10 Nasal Coronavir HKU1 PCR NOT DETECTED 12/20/21 19:10 Nasal Coronavir NL63 PCR NOT DETECTED 12/20/21 19:10 Nasal Coronavir OC43 PCR NOT DETECTED 12/20/21 19:10 Nasal Enterovir/Rhinovir PCR NOT DETECTED 12/20/21 19:10 Nasal Influenza B PCR NOT DETECTED 12/20/21 19:10 Nasal Influenza A PCR NOT DETECTED 12/20/21 19:10 Nasal Parainfluen 1 PCR NOT DETECTED 12/20/21 19:10 Nasal Parainfluen 2 PCR NOT DETECTED 12/20/21 19:10 Nasal Parainfluen 3 PCR NOT DETECTED 12/20/21 19:10 Nasal Parainfluen 4 PCR NOT DETECTED 12/20/21 19:10 Nasal RSV (PCR) NOT DETECTED 12/20/21 19:10 Nasal B.pertussis DNA PCR NOT DETECTED 12/20/21 19:10 Nasal C.pneumoniae (PCR) NOT DETECTED 12/20/21 19:10 Juan Daniel Human Metapneumo PCR NOT DETECTED 12/20/21 19:10 Nasal M.pneumoniae (PCR) NOT DETECTED 12/20/21 19:10 Nasal SARS-CoV-2 (PCR) DETECTED A 12/20/21 19:10 Salicylates < 6.0 mg/dL 12/03/21 18:20 Urine Opiates Screen NEGATIVE (NEGATIVE) 12/03/21 18:26 Ur Oxycodone Screen NEGATIVE (NEGATIVE) 12/03/21 18:26 Urine Methadone Screen NEGATIVE (NEGATIVE) 12/03/21 18:26 Ur Propoxyphene Screen NEGATIVE (NEGATIVE) 12/03/21 18:26 Acetaminophen < 10 ug/mL (10-30) L 12/03/21 18:20 Ur Barbiturates Screen NEGATIVE (NEGATIVE) 12/03/21 18:26 Ur Tricyclics Screen NEGATIVE (NEGATIVE) 12/03/21 18:26 Ur Phencyclidine Scrn NEGATIVE (NEGATIVE) 12/03/21 18:26 Ur Amphetamine Screen NEGATIVE (NEGATIVE) 12/03/21 18:26 U Methamphetamines Scrn NEGATIVE (NEGATIVE) 12/03/21 18:26 U Benzodiazepines Scrn POSITIVE (NEGATIVE) H 12/03/21 18:26 Urine Cocaine Screen NEGATIVE (NEGATIVE) 12/03/21 18:26 U Cannabinoids Screen NEGATIVE (NEGATIVE) 12/03/21 18:26 Ethyl Alcohol < 5.0 mg/dL 12/03/21 18:20 Sepsis Event Note (H) - Evaluation Current Stage of Sepsis: Ruled out ABX Reporting Has patient been on IV antibiotics over the past 48 hours?: No Current Medications - Current Medications Current Medications: Active Medications Docusate Sodium (Docusate Sodium 250 Mg Capsule) 250 - 500 mg PO DAILY PRN PRN Reason: Constipation Last Admin: 01/10/22 08:12 Dose: 250 mg Ibuprofen (Ibuprofen 400 Mg Tablet) 400 mg PO Q6HR PRN PRN Reason: Pain or Fever > 38C (100.4F) Magnesium Oxide (Magnesium Oxide 400 Mg Tablet) 400 mg PO DAILY [facility] Last Admin: 02/17/22 07:57 Dose: 400 mg Multivitamins (Multivitamin Tablet) 1 tab PO DAILY [facility] Last Admin: 02/17/22 07:57 Dose: 1 tab Senna (Senna 8.6 Mg Tablet) 8.6 - 17.2 mg PO DAILY PRN PRN Reason: Constipation Last Admin: 01/10/22 08:12 Dose: 8.6 mg Thiamine HCl (Thiamine 100 Mg Tablet) 100 mg PO DAILY [facility] Last Admin: 02/17/22 07:57 Dose: 100 mg Magnesium Oxide [Mag Ox] 400 mg PO DAILY 12/01/21 Multivitamin [Theragran] 1 each PO DAILY 12/01/21
[2022-02-18] MEDS: MAGNESIUM OXIDE 400 MG TABLET PO SCH (08:34)
[2022-02-18] MEDS: THIAMINE 100 MG TABLET PO SCH (08:34)
[2022-02-18] MEDS: MULTIVITAMIN TABLET PO SCH (08:34)
--- NOTE | 2022-02-18 10:12 | PROVIDER PROGRESS NOTE ---
Assessment/Plan - Problem List (1) Metabolic encephalopathy Assessment/Plan: 02/18 Hemodynamic stable. pt is pending for disposition, and Guardianship pt is alert and oriented to himself, location, event and vague on the time. otherwise pt ambulate, eat, and Hemodynamic stable. (2) Wernicke-Korsakoff syndrome (alcoholic) Assessment/Plan: Significantly improved. pt is comfort and he can ambulate without distress. (3) COVID-19 Impression: Asymptomatic, pt has no respiratory distress. He is off of contact precautions. (4) Homeless single person Impression: Continuing to work on disposition. Guardianship is pending, We appreciate social work input and disposition planning for pt. (5) Alcohol abuse Impression: He initially went through alcohol withdrawal but this is now resolved. We are continuing thiamine supplementation daily. he had over 2 months without drinking alcohol (6)alcoholic cirrhosis Patient had history of chronic Alcoholism and Elevated liver enzyme. Now Patient is stable, Not drink alcohol for over 2 months. Patient had extensive education for quitting of alcohol. Social work was consulted to help patient Quit alcohol. Patient repeatedly state he will quit alcohol - Current Meds Current Meds: Current Medications Generic Name Dose Route Start Last Admin Trade Name Freq PRN Reason Stop Dose Admin Docusate Sodium 250 - 500 mg 12/22/21 07:23 01/10/22 08:12 Docusate Sodium 250 Mg Capsule PO 250 mg DAILY PRN Administration Constipation Magnesium Oxide 400 mg 12/05/21 09:00 02/18/22 08:34 Magnesium Oxide 400 Mg Tablet PO 400 mg DAILY MARY Administration Multivitamins 1 tab 12/05/21 09:00 02/18/22 08:34 Multivitamin Tablet PO 1 tab DAILY MARY Administration Senna 8.6 - 17.2 mg 12/22/21 07:23 01/10/22 08:12 Senna 8.6 Mg Tablet PO 8.6 mg DAILY PRN Administration Constipation Thiamine HCl 100 mg 12/04/21 09:00 02/18/22 08:34 Thiamine 100 Mg Tablet PO 100 mg DAILY MARY Administration - Lab Result Fish Bone Diagrams: 01/26/22 04:20 01/26/22 04:20 Subjective - Subjective Patient Reports: Resting Comfortably, No Complaints Objective Vital Signs: Vital Signs - 24 hr 02/18/22 07:36 Temperature 36.6 C Heart Rate [ 92 Brachial] Respiratory 16 Rate Blood Pressure 118/77 [Right Radial artery] O2 Saturation 96 Oxygen O2 Source Room air I&O (Last 24 Hrs): Intake and Output Totals x24h 02/16/22 02/17/22 02/18/22 23:59 23:59 23:59 Intake Total 1999 1081 1200 Balance 1999 3458 1200 General: Alert, Oriented x3, Cooperative, No acute distress HEENT: Atraumatic Neck: Supple Lymphatic: no adenopathy Neuro: Alert, Non Focal, Oriented Times 3 Cardiovascular: Regular rate, Normal S1, Normal S2 Respiratory: Chest non-tender, No respiratory distress Abdomen: Normal bowel sounds, Soft, No tenderness Extremities: Normal pulses - Results Results: Laboratory Results WBC 5.3 x10^3/uL (4.8-10.8) 01/26/22 04:20 RBC 4.39 10^6/uL (4.70-6.10) L 01/26/22 04:20 Hgb 13.6 g/dL (14.0-18.0) L 01/26/22 04:20 Hct 41.1 % (42.0-52.0) L 01/26/22 04:20 MCV 93.6 fL (80.0-94.0) 01/26/22 04:20 MCH 31.0 pg (27.0-31.0) 01/26/22 04:20 MCHC 33.1 g/dL (32.0-36.0) 01/26/22 04:20 RDW 13.2 % (12.0-15.0) 01/26/22 04:20 Plt Count 131 10^3/uL (130-450) 01/26/22 04:20 MPV 12.8 fL (7.4-11.4) H 01/26/22 04:20 Neut # (Auto) 2.5 10^3/uL (1.5-6.6) 01/26/22 04:20 Lymph # (Auto) 1.8 10^3/uL (1.5-3.5) 01/26/22 04:20 [place] # (Auto) 0.6 10^3/uL (0.0-1.0) 01/26/22 04:20 Eos # (Auto) 0.2 10^3/uL (0.0-0.7) 01/26/22 04:20 Baso # (Auto) 0.1 10^3/uL (0.0-0.1) 01/26/22 04:20 Absolute Nucleated RBC 0.00 x10^3/uL 01/26/22 04:20 Nucleated RBC % 0.0 /100WBC 01/26/22 04:20 PT 15.1 secs (9.9-12.6) H 12/04/21 23:33 INR 1.4 (0.8-1.2) H 12/04/21 23:33 APTT 24.8 secs (24.9-33.3) L 12/03/21 18:20 Sodium 139 mmol/L (135-145) 01/26/22 04:20 Potassium 4.0 mmol/L (3.5-5.0) 01/26/22 04:20 Chloride 104 mmol/L (101-111) 01/26/22 04:20 Carbon Dioxide 25 mmol/L (21-32) 01/26/22 04:20 Anion Gap 10.0 (6-13) 01/26/22 04:20 BUN 17 mg/dL (6-20) 01/26/22 04:20 Creatinine 0.6 mg/dL (0.6-1.2) 01/26/22 04:20 Estimated GFR (MDRD) 137 (>89) 01/26/22 04:20 Glucose 154 mg/dL (70-100) H 01/26/22 04:20 Estimat Average Glucose 111 mg/dL (70-100) H 01/26/22 04:20 Hemoglobin A1c % 5.5 % (4.27-6.07) 01/26/22 04:20 Calcium 9.0 mg/dL (8.5-10.3) 01/26/22 04:20 Phosphorus 3.6 mg/dL (2.5-4.6) 12/06/21 07:04 Magnesium 2.0 mg/dL (1.7-2.8) 12/06/21 07:04 Total Bilirubin 0.5 mg/dL (0.2-1.0) 01/26/22 04:20 Direct Bilirubin 0.1 mg/dL (0.1-0.5) 01/26/22 04:20 AST 77 IU/L (10-42) H 01/26/22 04:20 ALT 104 IU/L (10-60) H 01/26/22 04:20 Alkaline Phosphatase 58 IU/L (42-121) 01/26/22 04:20 Ammonia 12.5 umol/L (7-35) 12/08/21 07:54 Total Protein 6.4 g/dL (6.7-8.2) L 01/26/22 04:20 Albumin 3.6 g/dL (3.2-5.5) 01/26/22 04:20 Globulin 2.8 g/dL (2.1-4.2) 01/26/22 04:20 Albumin/Globulin Ratio 1.1 (1.0-2.2) 12/12/21 08:07 Lipase 28 U/L (22-51) 12/06/21 07:04 Whole Bld Vitamin B1 TNP 12/04/21 16:52 Vitamin B12 317 pg/mL (180-914) 01/26/22 04:20 Folate 20.49 ng/mL (5.90 - >24.8) 01/26/22 04:20 TSH 1.25 uIU/mL (0.34-5.60) 12/03/21 18:20 Urine Color YELLOW 12/03/21 18:26 Urine Clarity CLEAR (CLEAR) 12/03/21 18:26 Urine pH 6.5 PH (5.0-7.5) 12/03/21 18:26 Ur Specific [place] 1.020 (1.002-1.030) 12/03/21 18:26 Urine Protein NEGATIVE mg/dL (NEGATIVE) 12/03/21 18:26 Urine Glucose (UA) NEGATIVE mg/dL (NEGATIVE) 12/03/21 18:26 Urine Ketones NEGATIVE mg/dL (NEGATIVE) 12/03/21 18:26 Urine Occult Blood NEGATIVE (NEGATIVE) 12/03/21 18:26 Urine Nitrite NEGATIVE (NEGATIVE) 12/03/21 18:26 Urine Bilirubin NEGATIVE (NEGATIVE) 12/03/21 18:26 Urine Urobilinogen 0.2 (NORMAL) E.U./dL (NORMAL) 12/03/21 18:26 Ur Leukocyte Esterase NEGATIVE (NEGATIVE) 12/03/21 18:26 Ur Microscopic Review NOT INDICATED 12/03/21 18:26 Urine Culture Comments NOT INDICATED 12/03/21 18:26 Nasal Adenovirus (PCR) NOT DETECTED 12/20/21 19:10 Nasal B. parapertussis DNA (PCR) NOT DETECTED 12/20/21 19:10 Nasal Coronavir 229E PCR NOT DETECTED 12/20/21 19:10 Nasal Coronavir HKU1 PCR NOT DETECTED 12/20/21 19:10 Nasal Coronavir NL63 PCR NOT DETECTED 12/20/21 19:10 Nasal Coronavir OC43 PCR NOT DETECTED 12/20/21 19:10 Nasal Enterovir/Rhinovir PCR NOT DETECTED 12/20/21 19:10 Nasal Influenza B PCR NOT DETECTED 12/20/21 19:10 Nasal Influenza A PCR NOT DETECTED 12/20/21 19:10 Nasal Parainfluen 1 PCR NOT DETECTED 12/20/21 19:10 Nasal Parainfluen 2 PCR NOT DETECTED 12/20/21 19:10 Nasal Parainfluen 3 PCR NOT DETECTED 12/20/21 19:10 Nasal Parainfluen 4 PCR NOT DETECTED 12/20/21 19:10 Nasal RSV (PCR) NOT DETECTED 12/20/21 19:10 Nasal B.pertussis DNA PCR NOT DETECTED 12/20/21 19:10 Nasal C.pneumoniae (PCR) NOT DETECTED 12/20/21 19:10 Juan Daniel Human Metapneumo PCR NOT DETECTED 12/20/21 19:10 Nasal M.pneumoniae (PCR) NOT DETECTED 12/20/21 19:10 Nasal SARS-CoV-2 (PCR) DETECTED A 12/20/21 19:10 Salicylates < 6.0 mg/dL 12/03/21 18:20 Urine Opiates Screen NEGATIVE (NEGATIVE) 12/03/21 18:26 Ur Oxycodone Screen NEGATIVE (NEGATIVE) 12/03/21 18:26 Urine Methadone Screen NEGATIVE (NEGATIVE) 12/03/21 18:26 Ur Propoxyphene Screen NEGATIVE (NEGATIVE) 12/03/21 18:26 Acetaminophen < 10 ug/mL (10-30) L 12/03/21 18:20 Ur Barbiturates Screen NEGATIVE (NEGATIVE) 12/03/21 18:26 Ur Tricyclics Screen NEGATIVE (NEGATIVE) 12/03/21 18:26 Ur Phencyclidine Scrn NEGATIVE (NEGATIVE) 12/03/21 18:26 Ur Amphetamine Screen NEGATIVE (NEGATIVE) 12/03/21 18:26 U Methamphetamines Scrn NEGATIVE (NEGATIVE) 12/03/21 18:26 U Benzodiazepines Scrn POSITIVE (NEGATIVE) H 12/03/21 18:26 Urine Cocaine Screen NEGATIVE (NEGATIVE) 12/03/21 18:26 U Cannabinoids Screen NEGATIVE (NEGATIVE) 12/03/21 18:26 Ethyl Alcohol < 5.0 mg/dL 12/03/21 18:20 Sepsis Event Note (H) - Evaluation Current Stage of Sepsis: Ruled out ABX Reporting Has patient been on IV antibiotics over the past 48 hours?: No Current Medications - Current Medications Current Medications: Active Medications Docusate Sodium (Docusate Sodium 250 Mg Capsule) 250 - 500 mg PO DAILY PRN PRN Reason: Constipation Last Admin: 01/10/22 08:12 Dose: 250 mg Ibuprofen (Ibuprofen 400 Mg Tablet) 400 mg PO Q6HR PRN PRN Reason: Pain or Fever > 38C (100.4F) Magnesium Oxide (Magnesium Oxide 400 Mg Tablet) 400 mg PO DAILY [facility] Last Admin: 02/18/22 08:34 Dose: 400 mg Multivitamins (Multivitamin Tablet) 1 tab PO DAILY [facility] Last Admin: 02/18/22 08:34 Dose: 1 tab Senna (Senna 8.6 Mg Tablet) 8.6 - 17.2 mg PO DAILY PRN PRN Reason: Constipation Last Admin: 01/10/22 08:12 Dose: 8.6 mg Thiamine HCl (Thiamine 100 Mg Tablet) 100 mg PO DAILY [facility] Last Admin: 02/18/22 08:34 Dose: 100 mg Magnesium Oxide [Mag Ox] 400 mg PO DAILY 12/01/21 Multivitamin [Theragran] 1 each PO DAILY 12/01/21
[2022-02-19] MEDS: MAGNESIUM OXIDE 400 MG TABLET PO SCH (08:24)
[2022-02-19] MEDS: MULTIVITAMIN TABLET PO SCH (08:24)
[2022-02-19] MEDS: THIAMINE 100 MG TABLET PO SCH (08:24)
--- NOTE | 2022-02-19 10:03 | PROVIDER PROGRESS NOTE ---
Assessment/Plan - Problem List (1) Metabolic encephalopathy Assessment/Plan: 02/19 pt has stable, he has no complaints. pt is pending for Guardianship and disposition 02/18 Hemodynamic stable. pt is pending for disposition, and Guardianship pt is alert and oriented to himself, location, event and vague on the time. otherwise pt ambulate, eat, and Hemodynamic stable. (2) Wernicke-Korsakoff syndrome (alcoholic) Assessment/Plan: Significantly improved. he ambulate without distress. (3) COVID-19 Impression: Asymptomatic, pt has no respiratory distress. He is off of contact precautions. (4) Homeless single person Impression: Continuing to work on disposition. Guardianship is pending, We appreciate social work input and disposition planning for pt. (5) Alcohol abuse Impression: He initially went through alcohol withdrawal but this is now resolved. We are continuing thiamine supplementation daily. he had over 2 months without drinking alcohol (6)alcoholic cirrhosis Patient had history of chronic Alcoholism and Elevated liver enzyme. Now Patient is stable, Not drink alcohol for over 2 months. Patient had extensive education for quitting of alcohol. Social work was consulted to help patient Quit alcohol. Patient repeatedly state he will quit alcohol - Current Meds Current Meds: Current Medications Generic Name Dose Route Start Last Admin Trade Name Freq PRN Reason Stop Dose Admin Docusate Sodium 250 - 500 mg 12/22/21 07:23 01/10/22 08:12 Docusate Sodium 250 Mg Capsule PO 250 mg DAILY PRN Administration Constipation Magnesium Oxide 400 mg 12/05/21 09:00 02/19/22 08:24 Magnesium Oxide 400 Mg Tablet PO 400 mg DAILY MARY Administration Multivitamins 1 tab 12/05/21 09:00 02/19/22 08:24 Multivitamin Tablet PO 1 tab DAILY MARY Administration Senna 8.6 - 17.2 mg 12/22/21 07:23 01/10/22 08:12 Senna 8.6 Mg Tablet PO 8.6 mg DAILY PRN Administration Constipation Thiamine HCl 100 mg 12/04/21 09:00 02/19/22 08:24 Thiamine 100 Mg Tablet PO 100 mg DAILY MARY Administration - Lab Result Fish Bone Diagrams: 01/26/22 04:20 01/26/22 04:20 Subjective - Subjective Patient Reports: Resting Comfortably, No Complaints Objective Vital Signs: Vital Signs - 24 hr 02/19/22 07:34 Temperature 36.5 C Heart Rate [ 83 Brachial] Respiratory 16 Rate Blood Pressure 106/76 [Right Brachial artery] O2 Saturation 96 Oxygen O2 Source Room air I&O (Last 24 Hrs): Intake and Output Totals x24h 02/17/22 02/18/22 02/19/22 23:59 23:59 23:59 Intake Total 2478 3420 780 Balance 2478 3420 780 General: Alert, Oriented x3, Cooperative, No acute distress HEENT: Atraumatic Neck: Supple Lymphatic: no adenopathy Neuro: Alert, Non Focal, Oriented Times 3 Cardiovascular: Regular rate, Normal S1, Normal S2 Respiratory: Chest non-tender, No respiratory distress Abdomen: Normal bowel sounds, Soft Extremities: Normal pulses - Results Results: Laboratory Results WBC 5.3 x10^3/uL (4.8-10.8) 01/26/22 04:20 RBC 4.39 10^6/uL (4.70-6.10) L 01/26/22 04:20 Hgb 13.6 g/dL (14.0-18.0) L 01/26/22 04:20 Hct 41.1 % (42.0-52.0) L 01/26/22 04:20 MCV 93.6 fL (80.0-94.0) 01/26/22 04:20 MCH 31.0 pg (27.0-31.0) 01/26/22 04:20 MCHC 33.1 g/dL (32.0-36.0) 01/26/22 04:20 RDW 13.2 % (12.0-15.0) 01/26/22 04:20 Plt Count 131 10^3/uL (130-450) 01/26/22 04:20 MPV 12.8 fL (7.4-11.4) H 01/26/22 04:20 Neut # (Auto) 2.5 10^3/uL (1.5-6.6) 01/26/22 04:20 Lymph # (Auto) 1.8 10^3/uL (1.5-3.5) 01/26/22 04:20 [place] # (Auto) 0.6 10^3/uL (0.0-1.0) 01/26/22 04:20 Eos # (Auto) 0.2 10^3/uL (0.0-0.7) 01/26/22 04:20 Baso # (Auto) 0.1 10^3/uL (0.0-0.1) 01/26/22 04:20 Absolute Nucleated RBC 0.00 x10^3/uL 01/26/22 04:20 Nucleated RBC % 0.0 /100WBC 01/26/22 04:20 PT 15.1 secs (9.9-12.6) H 12/04/21 23:33 INR 1.4 (0.8-1.2) H 12/04/21 23:33 APTT 24.8 secs (24.9-33.3) L 12/03/21 18:20 Sodium 139 mmol/L (135-145) 01/26/22 04:20 Potassium 4.0 mmol/L (3.5-5.0) 01/26/22 04:20 Chloride 104 mmol/L (101-111) 01/26/22 04:20 Carbon Dioxide 25 mmol/L (21-32) 01/26/22 04:20 Anion Gap 10.0 (6-13) 01/26/22 04:20 BUN 17 mg/dL (6-20) 01/26/22 04:20 Creatinine 0.6 mg/dL (0.6-1.2) 01/26/22 04:20 Estimated GFR (MDRD) 137 (>89) 01/26/22 04:20 Glucose 154 mg/dL (70-100) H 01/26/22 04:20 Estimat Average Glucose 111 mg/dL (70-100) H 01/26/22 04:20 Hemoglobin A1c % 5.5 % (4.27-6.07) 01/26/22 04:20 Calcium 9.0 mg/dL (8.5-10.3) 01/26/22 04:20 Phosphorus 3.6 mg/dL (2.5-4.6) 12/06/21 07:04 Magnesium 2.0 mg/dL (1.7-2.8) 12/06/21 07:04 Total Bilirubin 0.5 mg/dL (0.2-1.0) 01/26/22 04:20 Direct Bilirubin 0.1 mg/dL (0.1-0.5) 01/26/22 04:20 AST 77 IU/L (10-42) H 01/26/22 04:20 ALT 104 IU/L (10-60) H 01/26/22 04:20 Alkaline Phosphatase 58 IU/L (42-121) 01/26/22 04:20 Ammonia 12.5 umol/L (7-35) 12/08/21 07:54 Total Protein 6.4 g/dL (6.7-8.2) L 01/26/22 04:20 Albumin 3.6 g/dL (3.2-5.5) 01/26/22 04:20 Globulin 2.8 g/dL (2.1-4.2) 01/26/22 04:20 Albumin/Globulin Ratio 1.1 (1.0-2.2) 12/12/21 08:07 Lipase 28 U/L (22-51) 12/06/21 07:04 Whole Bld Vitamin B1 TNP 12/04/21 16:52 Vitamin B12 317 pg/mL (180-914) 01/26/22 04:20 Folate 20.49 ng/mL (5.90 - >24.8) 01/26/22 04:20 TSH 1.25 uIU/mL (0.34-5.60) 12/03/21 18:20 Urine Color YELLOW 12/03/21 18:26 Urine Clarity CLEAR (CLEAR) 12/03/21 18:26 Urine pH 6.5 PH (5.0-7.5) 12/03/21 18:26 Ur Specific [place] 1.020 (1.002-1.030) 12/03/21 18:26 Urine Protein NEGATIVE mg/dL (NEGATIVE) 12/03/21 18:26 Urine Glucose (UA) NEGATIVE mg/dL (NEGATIVE) 12/03/21 18:26 Urine Ketones NEGATIVE mg/dL (NEGATIVE) 12/03/21 18:26 Urine Occult Blood NEGATIVE (NEGATIVE) 12/03/21 18:26 Urine Nitrite NEGATIVE (NEGATIVE) 12/03/21 18:26 Urine Bilirubin NEGATIVE (NEGATIVE) 12/03/21 18:26 Urine Urobilinogen 0.2 (NORMAL) E.U./dL (NORMAL) 12/03/21 18:26 Ur Leukocyte Esterase NEGATIVE (NEGATIVE) 12/03/21 18:26 Ur Microscopic Review NOT INDICATED 12/03/21 18:26 Urine Culture Comments NOT INDICATED 12/03/21 18:26 Nasal Adenovirus (PCR) NOT DETECTED 12/20/21 19:10 Nasal B. parapertussis DNA (PCR) NOT DETECTED 12/20/21 19:10 Nasal Coronavir 229E PCR NOT DETECTED 12/20/21 19:10 Nasal Coronavir HKU1 PCR NOT DETECTED 12/20/21 19:10 Nasal Coronavir NL63 PCR NOT DETECTED 12/20/21 19:10 Nasal Coronavir OC43 PCR NOT DETECTED 12/20/21 19:10 Nasal Enterovir/Rhinovir PCR NOT DETECTED 12/20/21 19:10 Nasal Influenza B PCR NOT DETECTED 12/20/21 19:10 Nasal Influenza A PCR NOT DETECTED 12/20/21 19:10 Nasal Parainfluen 1 PCR NOT DETECTED 12/20/21 19:10 Nasal Parainfluen 2 PCR NOT DETECTED 12/20/21 19:10 Nasal Parainfluen 3 PCR NOT DETECTED 12/20/21 19:10 Nasal Parainfluen 4 PCR NOT DETECTED 12/20/21 19:10 Nasal RSV (PCR) NOT DETECTED 12/20/21 19:10 Nasal B.pertussis DNA PCR NOT DETECTED 12/20/21 19:10 Nasal C.pneumoniae (PCR) NOT DETECTED 12/20/21 19:10 Juan Daniel Human Metapneumo PCR NOT DETECTED 12/20/21 19:10 Nasal M.pneumoniae (PCR) NOT DETECTED 12/20/21 19:10 Nasal SARS-CoV-2 (PCR) DETECTED A 12/20/21 19:10 Salicylates < 6.0 mg/dL 12/03/21 18:20 Urine Opiates Screen NEGATIVE (NEGATIVE) 12/03/21 18:26 Ur Oxycodone Screen NEGATIVE (NEGATIVE) 12/03/21 18:26 Urine Methadone Screen NEGATIVE (NEGATIVE) 12/03/21 18:26 Ur Propoxyphene Screen NEGATIVE (NEGATIVE) 12/03/21 18:26 Acetaminophen < 10 ug/mL (10-30) L 12/03/21 18:20 Ur Barbiturates Screen NEGATIVE (NEGATIVE) 12/03/21 18:26 Ur Tricyclics Screen NEGATIVE (NEGATIVE) 12/03/21 18:26 Ur Phencyclidine Scrn NEGATIVE (NEGATIVE) 12/03/21 18:26 Ur Amphetamine Screen NEGATIVE (NEGATIVE) 12/03/21 18:26 U Methamphetamines Scrn NEGATIVE (NEGATIVE) 12/03/21 18:26 U Benzodiazepines Scrn POSITIVE (NEGATIVE) H 12/03/21 18:26 Urine Cocaine Screen NEGATIVE (NEGATIVE) 12/03/21 18:26 U Cannabinoids Screen NEGATIVE (NEGATIVE) 12/03/21 18:26 Ethyl Alcohol < 5.0 mg/dL 12/03/21 18:20 Sepsis Event Note (H) - Evaluation Current Stage of Sepsis: Ruled out ABX Reporting Has patient been on IV antibiotics over the past 48 hours?: No Current Medications - Current Medications Current Medications: Active Medications Docusate Sodium (Docusate Sodium 250 Mg Capsule) 250 - 500 mg PO DAILY PRN PRN Reason: Constipation Last Admin: 01/10/22 08:12 Dose: 250 mg Ibuprofen (Ibuprofen 400 Mg Tablet) 400 mg PO Q6HR PRN PRN Reason: Pain or Fever > 38C (100.4F) Magnesium Oxide (Magnesium Oxide 400 Mg Tablet) 400 mg PO DAILY [facility] Last Admin: 02/19/22 08:24 Dose: 400 mg Multivitamins (Multivitamin Tablet) 1 tab PO DAILY [facility] Last Admin: 02/19/22 08:24 Dose: 1 tab Senna (Senna 8.6 Mg Tablet) 8.6 - 17.2 mg PO DAILY PRN PRN Reason: Constipation Last Admin: 01/10/22 08:12 Dose: 8.6 mg Thiamine HCl (Thiamine 100 Mg Tablet) 100 mg PO DAILY [facility] Last Admin: 02/19/22 08:24 Dose: 100 mg Magnesium Oxide [Mag Ox] 400 mg PO DAILY 12/01/21 Multivitamin [Theragran] 1 each PO DAILY 12/01/21
[2022-02-20] MEDS: MAGNESIUM OXIDE 400 MG TABLET PO SCH (07:57)
[2022-02-20] MEDS: MULTIVITAMIN TABLET PO SCH (07:57)
[2022-02-20] MEDS: THIAMINE 100 MG TABLET PO SCH (07:58)
--- NOTE | 2022-02-20 09:01 | PROVIDER PROGRESS NOTE ---
Assessment/Plan - Problem List (1) Metabolic encephalopathy Assessment/Plan: 02/20 pt ate 100% his meal, pt has no complaint, ambulate at hallway. pt is pending for Guardianship and disposition 02/19 pt has stable, he has no complaints. pt is pending for Guardianship and disposition 02/18 Hemodynamic stable. pt is pending for disposition, and Guardianship pt is alert and oriented to himself, location, event and vague on the time. otherwise pt ambulate, eat, and Hemodynamic stable. (2) COVID-19 Impression: Asymptomatic, pt has no respiratory distress. He is off of contact precautions. (3) Homeless single person Impression: Continuing to work on disposition. Guardianship is pending, We appreciate social work input and disposition planning for pt. (4) Alcohol abuse Impression: He initially went through alcohol withdrawal but this is now resolved. We are continuing thiamine supplementation daily. he had over 2 months without drinking alcohol - Current Meds Current Meds: Current Medications Generic Name Dose Route Start Last Admin Trade Name Lazaroq PRN Reason Stop Dose Admin Docusate Sodium 250 - 500 mg 12/22/21 07:23 01/10/22 08:12 Docusate Sodium 250 Mg Capsule PO 250 mg DAILY PRN Administration Constipation Magnesium Oxide 400 mg 12/05/21 09:00 02/20/22 07:57 Magnesium Oxide 400 Mg Tablet PO 400 mg DAILY MARY Administration Multivitamins 1 tab 12/05/21 09:00 02/20/22 07:57 Multivitamin Tablet PO 1 tab DAILY MARY Administration Senna 8.6 - 17.2 mg 12/22/21 07:23 01/10/22 08:12 Senna 8.6 Mg Tablet PO 8.6 mg DAILY PRN Administration Constipation Thiamine HCl 100 mg 12/04/21 09:00 02/20/22 07:58 Thiamine 100 Mg Tablet PO 100 mg DAILY MARY Administration - Lab Result Fish Bone Diagrams: 01/26/22 04:20 01/26/22 04:20 Subjective - Subjective Patient Reports: Resting Comfortably, No Complaints Objective Vital Signs: Vital Signs - 24 hr 02/20/22 08:09 Temperature 36.4 C L Heart Rate [ 85 Brachial] Respiratory 16 Rate Blood Pressure 107/90 H [Right Brachial artery] O2 Saturation 96 Oxygen O2 Source Room air I&O (Last 24 Hrs): Intake and Output Totals x24h 02/18/22 02/19/22 02/20/22 23:59 23:59 23:59 Intake Total 3420 2800 720 Balance 3420 2800 720 General: Alert, Cooperative, No acute distress HEENT: Atraumatic Neck: Supple Lymphatic: no adenopathy Neuro: Alert, Non Focal, Oriented Times 3 Cardiovascular: Regular rate, Normal S1, Normal S2 Respiratory: Chest non-tender, No respiratory distress Abdomen: Normal bowel sounds, Soft Extremities: Normal pulses - Results Results: Laboratory Results WBC 5.3 x10^3/uL (4.8-10.8) 01/26/22 04:20 RBC 4.39 10^6/uL (4.70-6.10) L 01/26/22 04:20 Hgb 13.6 g/dL (14.0-18.0) L 01/26/22 04:20 Hct 41.1 % (42.0-52.0) L 01/26/22 04:20 MCV 93.6 fL (80.0-94.0) 01/26/22 04:20 MCH 31.0 pg (27.0-31.0) 01/26/22 04:20 MCHC 33.1 g/dL (32.0-36.0) 01/26/22 04:20 RDW 13.2 % (12.0-15.0) 01/26/22 04:20 Plt Count 131 10^3/uL (130-450) 01/26/22 04:20 MPV 12.8 fL (7.4-11.4) H 01/26/22 04:20 Neut # (Auto) 2.5 10^3/uL (1.5-6.6) 01/26/22 04:20 Lymph # (Auto) 1.8 10^3/uL (1.5-3.5) 01/26/22 04:20 [place] # (Auto) 0.6 10^3/uL (0.0-1.0) 01/26/22 04:20 Eos # (Auto) 0.2 10^3/uL (0.0-0.7) 01/26/22 04:20 Baso # (Auto) 0.1 10^3/uL (0.0-0.1) 01/26/22 04:20 Absolute Nucleated RBC 0.00 x10^3/uL 01/26/22 04:20 Nucleated RBC % 0.0 /100WBC 01/26/22 04:20 PT 15.1 secs (9.9-12.6) H 12/04/21 23:33 INR 1.4 (0.8-1.2) H 12/04/21 23:33 APTT 24.8 secs (24.9-33.3) L 12/03/21 18:20 Sodium 139 mmol/L (135-145) 01/26/22 04:20 Potassium 4.0 mmol/L (3.5-5.0) 01/26/22 04:20 Chloride 104 mmol/L (101-111) 01/26/22 04:20 Carbon Dioxide 25 mmol/L (21-32) 01/26/22 04:20 Anion Gap 10.0 (6-13) 01/26/22 04:20 BUN 17 mg/dL (6-20) 01/26/22 04:20 Creatinine 0.6 mg/dL (0.6-1.2) 01/26/22 04:20 Estimated GFR (MDRD) 137 (>89) 01/26/22 04:20 Glucose 154 mg/dL (70-100) H 01/26/22 04:20 Estimat Average Glucose 111 mg/dL (70-100) H 01/26/22 04:20 Hemoglobin A1c % 5.5 % (4.27-6.07) 01/26/22 04:20 Calcium 9.0 mg/dL (8.5-10.3) 01/26/22 04:20 Phosphorus 3.6 mg/dL (2.5-4.6) 12/06/21 07:04 Magnesium 2.0 mg/dL (1.7-2.8) 12/06/21 07:04 Total Bilirubin 0.5 mg/dL (0.2-1.0) 01/26/22 04:20 Direct Bilirubin 0.1 mg/dL (0.1-0.5) 01/26/22 04:20 AST 77 IU/L (10-42) H 01/26/22 04:20 ALT 104 IU/L (10-60) H 01/26/22 04:20 Alkaline Phosphatase 58 IU/L (42-121) 01/26/22 04:20 Ammonia 12.5 umol/L (7-35) 12/08/21 07:54 Total Protein 6.4 g/dL (6.7-8.2) L 01/26/22 04:20 Albumin 3.6 g/dL (3.2-5.5) 01/26/22 04:20 Globulin 2.8 g/dL (2.1-4.2) 01/26/22 04:20 Albumin/Globulin Ratio 1.1 (1.0-2.2) 12/12/21 08:07 Lipase 28 U/L (22-51) 12/06/21 07:04 Whole Bld Vitamin B1 TNP 12/04/21 16:52 Vitamin B12 317 pg/mL (180-914) 01/26/22 04:20 Folate 20.49 ng/mL (5.90 - >24.8) 01/26/22 04:20 TSH 1.25 uIU/mL (0.34-5.60) 12/03/21 18:20 Urine Color YELLOW 12/03/21 18:26 Urine Clarity CLEAR (CLEAR) 12/03/21 18:26 Urine pH 6.5 PH (5.0-7.5) 12/03/21 18:26 Ur Specific [place] 1.020 (1.002-1.030) 12/03/21 18:26 Urine Protein NEGATIVE mg/dL (NEGATIVE) 12/03/21 18:26 Urine Glucose (UA) NEGATIVE mg/dL (NEGATIVE) 12/03/21 18:26 Urine Ketones NEGATIVE mg/dL (NEGATIVE) 12/03/21 18:26 Urine Occult Blood NEGATIVE (NEGATIVE) 12/03/21 18:26 Urine Nitrite NEGATIVE (NEGATIVE) 12/03/21 18:26 Urine Bilirubin NEGATIVE (NEGATIVE) 12/03/21 18:26 Urine Urobilinogen 0.2 (NORMAL) E.U./dL (NORMAL) 12/03/21 18:26 Ur Leukocyte Esterase NEGATIVE (NEGATIVE) 12/03/21 18:26 Ur Microscopic Review NOT INDICATED 12/03/21 18:26 Urine Culture Comments NOT INDICATED 12/03/21 18:26 Nasal Adenovirus (PCR) NOT DETECTED 12/20/21 19:10 Nasal B. parapertussis DNA (PCR) NOT DETECTED 12/20/21 19:10 Nasal Coronavir 229E PCR NOT DETECTED 12/20/21 19:10 Nasal Coronavir HKU1 PCR NOT DETECTED 12/20/21 19:10 Nasal Coronavir NL63 PCR NOT DETECTED 12/20/21 19:10 Nasal Coronavir OC43 PCR NOT DETECTED 12/20/21 19:10 Nasal Enterovir/Rhinovir PCR NOT DETECTED 12/20/21 19:10 Nasal Influenza B PCR NOT DETECTED 12/20/21 19:10 Nasal Influenza A PCR NOT DETECTED 12/20/21 19:10 Nasal Parainfluen 1 PCR NOT DETECTED 12/20/21 19:10 Nasal Parainfluen 2 PCR NOT DETECTED 12/20/21 19:10 Nasal Parainfluen 3 PCR NOT DETECTED 12/20/21 19:10 Nasal Parainfluen 4 PCR NOT DETECTED 12/20/21 19:10 Nasal RSV (PCR) NOT DETECTED 12/20/21 19:10 Nasal B.pertussis DNA PCR NOT DETECTED 12/20/21 19:10 Nasal C.pneumoniae (PCR) NOT DETECTED 12/20/21 19:10 Juan Daniel Human Metapneumo PCR NOT DETECTED 12/20/21 19:10 Nasal M.pneumoniae (PCR) NOT DETECTED 12/20/21 19:10 Nasal SARS-CoV-2 (PCR) DETECTED A 12/20/21 19:10 Salicylates < 6.0 mg/dL 12/03/21 18:20 Urine Opiates Screen NEGATIVE (NEGATIVE) 12/03/21 18:26 Ur Oxycodone Screen NEGATIVE (NEGATIVE) 12/03/21 18:26 Urine Methadone Screen NEGATIVE (NEGATIVE) 12/03/21 18:26 Ur Propoxyphene Screen NEGATIVE (NEGATIVE) 12/03/21 18:26 Acetaminophen < 10 ug/mL (10-30) L 12/03/21 18:20 Ur Barbiturates Screen NEGATIVE (NEGATIVE) 12/03/21 18:26 Ur Tricyclics Screen NEGATIVE (NEGATIVE) 12/03/21 18:26 Ur Phencyclidine Scrn NEGATIVE (NEGATIVE) 12/03/21 18:26 Ur Amphetamine Screen NEGATIVE (NEGATIVE) 12/03/21 18:26 U Methamphetamines Scrn NEGATIVE (NEGATIVE) 12/03/21 18:26 U Benzodiazepines Scrn POSITIVE (NEGATIVE) H 12/03/21 18:26 Urine Cocaine Screen NEGATIVE (NEGATIVE) 12/03/21 18:26 U Cannabinoids Screen NEGATIVE (NEGATIVE) 12/03/21 18:26 Ethyl Alcohol < 5.0 mg/dL 12/03/21 18:20 Sepsis Event Note (H) - Evaluation Current Stage of Sepsis: Ruled out ABX Reporting Has patient been on IV antibiotics over the past 48 hours?: No Current Medications - Current Medications Current Medications: Active Medications Docusate Sodium (Docusate Sodium 250 Mg Capsule) 250 - 500 mg PO DAILY PRN PRN Reason: Constipation Last Admin: 01/10/22 08:12 Dose: 250 mg Ibuprofen (Ibuprofen 400 Mg Tablet) 400 mg PO Q6HR PRN PRN Reason: Pain or Fever > 38C (100.4F) Magnesium Oxide (Magnesium Oxide 400 Mg Tablet) 400 mg PO DAILY [facility] Last Admin: 02/20/22 07:57 Dose: 400 mg Multivitamins (Multivitamin Tablet) 1 tab PO DAILY [facility] Last Admin: 02/20/22 07:57 Dose: 1 tab Senna (Senna 8.6 Mg Tablet) 8.6 - 17.2 mg PO DAILY PRN PRN Reason: Constipation Last Admin: 01/10/22 08:12 Dose: 8.6 mg Thiamine HCl (Thiamine 100 Mg Tablet) 100 mg PO DAILY [facility] Last Admin: 02/20/22 07:58 Dose: 100 mg Magnesium Oxide [Mag Ox] 400 mg PO DAILY 12/01/21 Multivitamin [Theragran] 1 each PO DAILY 12/01/21
[2022-02-21] MEDS: THIAMINE 100 MG TABLET PO SCH (07:53)
[2022-02-21] MEDS: MULTIVITAMIN TABLET PO SCH (07:53)
[2022-02-21] MEDS: MAGNESIUM OXIDE 400 MG TABLET PO SCH (07:53)
--- NOTE | 2022-02-21 15:27 | PROVIDER PROGRESS NOTE ---
Subjective - Prog Note Date Prog Note Date: 02/21/22 - Subjective Subjective: He is doing well and has no complaints. Current Medications - Current Medications Current Medications: Active Medications Docusate Sodium (Docusate Sodium 250 Mg Capsule) 250 - 500 mg PO DAILY PRN PRN Reason: Constipation Last Admin: 01/10/22 08:12 Dose: 250 mg Ibuprofen (Ibuprofen 400 Mg Tablet) 400 mg PO Q6HR PRN PRN Reason: Pain or Fever > 38C (100.4F) Magnesium Oxide (Magnesium Oxide 400 Mg Tablet) 400 mg PO DAILY [facility] Last Admin: 02/21/22 07:53 Dose: 400 mg Multivitamins (Multivitamin Tablet) 1 tab PO DAILY [facility] Last Admin: 02/21/22 07:53 Dose: 1 tab Senna (Senna 8.6 Mg Tablet) 8.6 - 17.2 mg PO DAILY PRN PRN Reason: Constipation Last Admin: 01/10/22 08:12 Dose: 8.6 mg Thiamine HCl (Thiamine 100 Mg Tablet) 100 mg PO DAILY [facility] Last Admin: 02/21/22 07:53 Dose: 100 mg Magnesium Oxide [Mag Ox] 400 mg PO DAILY 12/01/21 Multivitamin [Theragran] 1 each PO DAILY 12/01/21 Objective - Vital Signs/Intake & Output Reviewed Vital Signs: Yes Vital Signs: Vital Signs x48h Temp Pulse Resp BP Pulse Ox 02/21/22 08:16 36.6 C 74 16 120/70 96 Intake & Output: Intake & Output 02/18/22 02/19/22 02/20/22 02/21/22 23:59 23:59 23:59 23:59 Intake Total 3420 2800 2110 1560 Balance 3420 2800 2110 1560 - Objective General Appearance: positive: No acute distress, Alert ENT: positive: ENT inspection nml Neck: positive: Nml inspection Respiratory: positive: No respiratory distress Neurologic/Psychiatric: negative: Disoriented to person, Disoriented to place, Disoriented to time - Lab Results Fish Bones: 01/26/22 04:20 01/26/22 04:20 Sepsis Event Note (H) - Evaluation Current Stage of Sepsis: Ruled out Assessment/Plan - Problem List (1) Wernicke-Korsakoff syndrome (alcoholic) Impression: He continues to make progress this hospitalization. We have discontinued all psychiatric medications. Although he is alert and oriented, he still has paranoia and delusions at times and we are pursuing guardianship. We are continue to work with social work regarding disposition. (2) COVID-19 Impression: This is now resolved. He is off of contact precautions. (3) Homeless single person Impression: Continuing to work on disposition. We appreciate social work input. (4) Alcohol abuse Impression: He initially went through alcohol withdrawal but this is now resolved. We are continuing thiamine supplementation daily.
[2022-02-22] MEDS: MAGNESIUM OXIDE 400 MG TABLET PO SCH (07:47)
[2022-02-22] MEDS: MULTIVITAMIN TABLET PO SCH (07:47)
[2022-02-22] MEDS: THIAMINE 100 MG TABLET PO SCH (07:47)
--- NOTE | 2022-02-22 08:05 | PROVIDER PROGRESS NOTE ---
Subjective - Prog Note Date Prog Note Date: 02/22/22 - Subjective Subjective: He has no complaints. He is waiting for further information on his discharge planning. Current Medications - Current Medications Current Medications: Active Medications Docusate Sodium (Docusate Sodium 250 Mg Capsule) 250 - 500 mg PO DAILY PRN PRN Reason: Constipation Last Admin: 01/10/22 08:12 Dose: 250 mg Ibuprofen (Ibuprofen 400 Mg Tablet) 400 mg PO Q6HR PRN PRN Reason: Pain or Fever > 38C (100.4F) Magnesium Oxide (Magnesium Oxide 400 Mg Tablet) 400 mg PO DAILY [facility] Last Admin: 02/22/22 07:47 Dose: 400 mg Multivitamins (Multivitamin Tablet) 1 tab PO DAILY [facility] Last Admin: 02/22/22 07:47 Dose: 1 tab Senna (Senna 8.6 Mg Tablet) 8.6 - 17.2 mg PO DAILY PRN PRN Reason: Constipation Last Admin: 01/10/22 08:12 Dose: 8.6 mg Thiamine HCl (Thiamine 100 Mg Tablet) 100 mg PO DAILY [facility] Last Admin: 02/22/22 07:47 Dose: 100 mg Magnesium Oxide [Mag Ox] 400 mg PO DAILY 12/01/21 Multivitamin [Theragran] 1 each PO DAILY 12/01/21 Objective - Vital Signs/Intake & Output Reviewed Vital Signs: Yes Vital Signs: Vital Signs x48h Temp Pulse Resp BP Pulse Ox 02/22/22 07:44 36.3 C L 81 17 110/74 97 Intake & Output: Intake & Output 02/19/22 02/20/22 02/21/22 02/22/22 23:59 23:59 23:59 23:59 Intake Total 2800 2110 2430 Output Total 3 Balance 2800 2110 2427 - Objective General Appearance: positive: No acute distress, Alert Respiratory: positive: No respiratory distress Neurologic/Psychiatric: negative: Disoriented to person, Disoriented to place - Lab Results Fish Bones: 01/26/22 04:20 01/26/22 04:20 Sepsis Event Note (H) - Evaluation Current Stage of Sepsis: Ruled out Assessment/Plan - Problem List (1) Wernicke-Korsakoff syndrome (alcoholic) Impression: He has made significant progress with regards to his orientation and thought process since admission. He is still requires guardianship and we are working with social work and administration regarding this. We have discontinued all of the psychiatric medications. (2) COVID-19 Impression: This is now resolved. He is off of contact precautions. (3) Homeless single person Impression: Continuing to work on disposition. We appreciate social work input. (4) Alcohol abuse Impression: He initially went through alcohol withdrawal but this is now resolved. We are continuing thiamine supplementation daily.
--- NOTE | 2022-02-23 07:23 | PROVIDER PROGRESS NOTE ---
Subjective - Prog Note Date Prog Note Date: 02/23/22 - Subjective Subjective: He continues to feel well. Hoping to have updates today regarding his discharge planning. Current Medications - Current Medications Current Medications: Active Medications Docusate Sodium (Docusate Sodium 250 Mg Capsule) 250 - 500 mg PO DAILY PRN PRN Reason: Constipation Last Admin: 01/10/22 08:12 Dose: 250 mg Ibuprofen (Ibuprofen 400 Mg Tablet) 400 mg PO Q6HR PRN PRN Reason: Pain or Fever > 38C (100.4F) Magnesium Oxide (Magnesium Oxide 400 Mg Tablet) 400 mg PO DAILY [facility] Last Admin: 02/22/22 07:47 Dose: 400 mg Multivitamins (Multivitamin Tablet) 1 tab PO DAILY [facility] Last Admin: 02/22/22 07:47 Dose: 1 tab Senna (Senna 8.6 Mg Tablet) 8.6 - 17.2 mg PO DAILY PRN PRN Reason: Constipation Last Admin: 01/10/22 08:12 Dose: 8.6 mg Thiamine HCl (Thiamine 100 Mg Tablet) 100 mg PO DAILY [facility] Last Admin: 02/22/22 07:47 Dose: 100 mg Magnesium Oxide [Mag Ox] 400 mg PO DAILY 12/01/21 Multivitamin [Theragran] 1 each PO DAILY 12/01/21 Objective - Vital Signs/Intake & Output Reviewed Vital Signs: Yes Vital Signs: Vital Signs x48h Temp Pulse Resp BP Pulse Ox 02/23/22 07:19 36.6 C 77 16 119/68 98 Intake & Output: Intake & Output 02/20/22 02/21/22 02/22/22 02/23/22 23:59 23:59 23:59 23:59 Intake Total 2110 2430 1680 300 Output Total 3 Balance 2110 2427 1680 300 - Objective General Appearance: positive: No acute distress, Alert ENT: positive: ENT inspection nml Respiratory: positive: No respiratory distress Neurologic/Psychiatric: negative: Disoriented to person, Disoriented to place, Disoriented to time - Lab Results Fish Bones: 01/26/22 04:20 01/26/22 04:20 Sepsis Event Note (H) - Evaluation Current Stage of Sepsis: Ruled out Assessment/Plan - Problem List (1) Wernicke-Korsakoff syndrome (alcoholic) Impression: He has made significant progress with regards to his orientation and thought process since admission but still has poor insight and decision making with some thoughts of paranoia at times. He is still requires guardianship and we are working with social work and administration regarding this. We have discontinued all of the psychiatric medications. (2) COVID-19 Impression: This is now resolved. He is off of contact precautions. (3) Homeless single person Impression: Continuing to work on disposition. We appreciate social work input. (4) Alcohol abuse Impression: He initially went through alcohol withdrawal but this is now resolved. We are continuing thiamine supplementation daily.
[2022-02-23] MEDS: THIAMINE 100 MG TABLET PO SCH (09:06)
[2022-02-23] MEDS: MAGNESIUM OXIDE 400 MG TABLET PO SCH (09:06)
[2022-02-23] MEDS: MULTIVITAMIN TABLET PO SCH (09:06)
[2022-02-24] MEDS: MULTIVITAMIN TABLET PO SCH (09:32)
[2022-02-24] MEDS: MAGNESIUM OXIDE 400 MG TABLET PO SCH (09:32)
[2022-02-24] MEDS: THIAMINE 100 MG TABLET PO SCH (09:32)
--- NOTE | 2022-02-24 10:23 | PROVIDER PROGRESS NOTE ---
Assessment/Plan - Problem List (1) Metabolic encephalopathy Assessment/Plan: pt has been making a significant improvement regards to his orientation and thought process since admission, he ambulate and had good appetite but still has poor insight and decision-making with some thoughts of paranoia at times. we are working with social work for disposition planning and administration regarding this. We have discontinued all of the psychiatric medications, continue with vitamin B1 (2) COVID-19 Impression: This was resolved and he has been asymptomatic. (3) Homeless single person Impression: Continuing to work with social sciences lecturer for disposition planning. We appreciate social work input. (4) Alcohol abuse Impression: He initially went through alcohol withdrawal but this is now resolved. pt has been not drinking alcohol at hospital stay for nearly 3 months. We are continuing thiamine supplementation daily. - Current Meds Current Meds: Current Medications Generic Name Dose Route Start Last Admin Trade Name Debby PRN Reason Stop Dose Admin Docusate Sodium 250 - 500 mg 12/22/21 07:23 01/10/22 08:12 Docusate Sodium 250 Mg Capsule PO 250 mg DAILY PRN Administration Constipation Magnesium Oxide 400 mg 12/05/21 09:00 02/24/22 09:32 Magnesium Oxide 400 Mg Tablet PO 400 mg DAILY MARY Administration Multivitamins 1 tab 12/05/21 09:00 02/24/22 09:32 Multivitamin Tablet PO 1 tab DAILY MARY Administration Senna 8.6 - 17.2 mg 12/22/21 07:23 01/10/22 08:12 Senna 8.6 Mg Tablet PO 8.6 mg DAILY PRN Administration Constipation Thiamine HCl 100 mg 12/04/21 09:00 02/24/22 09:32 Thiamine 100 Mg Tablet PO 100 mg DAILY MARY Administration - Lab Result Fish Bone Diagrams: 01/26/22 04:20 01/26/22 04:20 Subjective - Subjective Patient Reports: Resting Comfortably, No Complaints Objective Vital Signs: Vital Signs - 24 hr 02/24/22 07:47 Temperature 36.4 C L Heart Rate [ 85 Brachial] Respiratory 16 Rate Blood Pressure 111/73 [Right Brachial artery] O2 Saturation 97 Oxygen O2 Source Room air I&O (Last 24 Hrs): Intake and Output Totals x24h 02/22/22 02/23/22 02/24/22 23:59 23:59 23:59 Intake Total 1680 2496 480 Balance 1680 2496 480 General: Alert, Oriented x3, Cooperative, No acute distress HEENT: Atraumatic Neck: Supple Lymphatic: no adenopathy Neuro: Alert, Non Focal, Oriented Times 3 Cardiovascular: Regular rate, Normal S1, Normal S2 Respiratory: Chest non-tender, No respiratory distress Abdomen: Soft, No tenderness Extremities: Normal pulses - Results Results: Laboratory Results WBC 5.3 x10^3/uL (4.8-10.8) 01/26/22 04:20 RBC 4.39 10^6/uL (4.70-6.10) L 01/26/22 04:20 Hgb 13.6 g/dL (14.0-18.0) L 01/26/22 04:20 Hct 41.1 % (42.0-52.0) L 01/26/22 04:20 MCV 93.6 fL (80.0-94.0) 01/26/22 04:20 MCH 31.0 pg (27.0-31.0) 01/26/22 04:20 MCHC 33.1 g/dL (32.0-36.0) 01/26/22 04:20 RDW 13.2 % (12.0-15.0) 01/26/22 04:20 Plt Count 131 10^3/uL (130-450) 01/26/22 04:20 MPV 12.8 fL (7.4-11.4) H 01/26/22 04:20 Neut # (Auto) 2.5 10^3/uL (1.5-6.6) 01/26/22 04:20 Lymph # (Auto) 1.8 10^3/uL (1.5-3.5) 01/26/22 04:20 [place] # (Auto) 0.6 10^3/uL (0.0-1.0) 01/26/22 04:20 Eos # (Auto) 0.2 10^3/uL (0.0-0.7) 01/26/22 04:20 Baso # (Auto) 0.1 10^3/uL (0.0-0.1) 01/26/22 04:20 Absolute Nucleated RBC 0.00 x10^3/uL 01/26/22 04:20 Nucleated RBC % 0.0 /100WBC 01/26/22 04:20 PT 15.1 secs (9.9-12.6) H 12/04/21 23:33 INR 1.4 (0.8-1.2) H 12/04/21 23:33 APTT 24.8 secs (24.9-33.3) L 12/03/21 18:20 Sodium 139 mmol/L (135-145) 01/26/22 04:20 Potassium 4.0 mmol/L (3.5-5.0) 01/26/22 04:20 Chloride 104 mmol/L (101-111) 01/26/22 04:20 Carbon Dioxide 25 mmol/L (21-32) 01/26/22 04:20 Anion Gap 10.0 (6-13) 01/26/22 04:20 BUN 17 mg/dL (6-20) 01/26/22 04:20 Creatinine 0.6 mg/dL (0.6-1.2) 01/26/22 04:20 Estimated GFR (MDRD) 137 (>89) 01/26/22 04:20 Glucose 154 mg/dL (70-100) H 01/26/22 04:20 Estimat Average Glucose 111 mg/dL (70-100) H 01/26/22 04:20 Hemoglobin A1c % 5.5 % (4.27-6.07) 01/26/22 04:20 Calcium 9.0 mg/dL (8.5-10.3) 01/26/22 04:20 Phosphorus 3.6 mg/dL (2.5-4.6) 12/06/21 07:04 Magnesium 2.0 mg/dL (1.7-2.8) 12/06/21 07:04 Total Bilirubin 0.5 mg/dL (0.2-1.0) 01/26/22 04:20 Direct Bilirubin 0.1 mg/dL (0.1-0.5) 01/26/22 04:20 AST 77 IU/L (10-42) H 01/26/22 04:20 ALT 104 IU/L (10-60) H 01/26/22 04:20 Alkaline Phosphatase 58 IU/L (42-121) 01/26/22 04:20 Ammonia 12.5 umol/L (7-35) 12/08/21 07:54 Total Protein 6.4 g/dL (6.7-8.2) L 01/26/22 04:20 Albumin 3.6 g/dL (3.2-5.5) 01/26/22 04:20 Globulin 2.8 g/dL (2.1-4.2) 01/26/22 04:20 Albumin/Globulin Ratio 1.1 (1.0-2.2) 12/12/21 08:07 Lipase 28 U/L (22-51) 12/06/21 07:04 Whole Bld Vitamin B1 TNP 12/04/21 16:52 Vitamin B12 317 pg/mL (180-914) 01/26/22 04:20 Folate 20.49 ng/mL (5.90 - >24.8) 01/26/22 04:20 TSH 1.25 uIU/mL (0.34-5.60) 12/03/21 18:20 Urine Color YELLOW 12/03/21 18:26 Urine Clarity CLEAR (CLEAR) 12/03/21 18:26 Urine pH 6.5 PH (5.0-7.5) 12/03/21 18:26 Ur Specific [place] 1.020 (1.002-1.030) 12/03/21 18:26 Urine Protein NEGATIVE mg/dL (NEGATIVE) 12/03/21 18:26 Urine Glucose (UA) NEGATIVE mg/dL (NEGATIVE) 12/03/21 18:26 Urine Ketones NEGATIVE mg/dL (NEGATIVE) 12/03/21 18:26 Urine Occult Blood NEGATIVE (NEGATIVE) 12/03/21 18:26 Urine Nitrite NEGATIVE (NEGATIVE) 12/03/21 18:26 Urine Bilirubin NEGATIVE (NEGATIVE) 12/03/21 18:26 Urine Urobilinogen 0.2 (NORMAL) E.U./dL (NORMAL) 12/03/21 18:26 Ur Leukocyte Esterase NEGATIVE (NEGATIVE) 12/03/21 18:26 Ur Microscopic Review NOT INDICATED 12/03/21 18:26 Urine Culture Comments NOT INDICATED 12/03/21 18:26 Nasal Adenovirus (PCR) NOT DETECTED 12/20/21 19:10 Nasal B. parapertussis DNA (PCR) NOT DETECTED 12/20/21 19:10 Nasal Coronavir 229E PCR NOT DETECTED 12/20/21 19:10 Nasal Coronavir HKU1 PCR NOT DETECTED 12/20/21 19:10 Nasal Coronavir NL63 PCR NOT DETECTED 12/20/21 19:10 Nasal Coronavir OC43 PCR NOT DETECTED 12/20/21 19:10 Nasal Enterovir/Rhinovir PCR NOT DETECTED 12/20/21 19:10 Nasal Influenza B PCR NOT DETECTED 12/20/21 19:10 Nasal Influenza A PCR NOT DETECTED 12/20/21 19:10 Nasal Parainfluen 1 PCR NOT DETECTED 12/20/21 19:10 Nasal Parainfluen 2 PCR NOT DETECTED 12/20/21 19:10 Nasal Parainfluen 3 PCR NOT DETECTED 12/20/21 19:10 Nasal Parainfluen 4 PCR NOT DETECTED 12/20/21 19:10 Nasal RSV (PCR) NOT DETECTED 12/20/21 19:10 Nasal B.pertussis DNA PCR NOT DETECTED 12/20/21 19:10 Nasal C.pneumoniae (PCR) NOT DETECTED 12/20/21 19:10 Juan Daniel Human Metapneumo PCR NOT DETECTED 12/20/21 19:10 Nasal M.pneumoniae (PCR) NOT DETECTED 12/20/21 19:10 Nasal SARS-CoV-2 (PCR) DETECTED A 12/20/21 19:10 Salicylates < 6.0 mg/dL 12/03/21 18:20 Urine Opiates Screen NEGATIVE (NEGATIVE) 12/03/21 18:26 Ur Oxycodone Screen NEGATIVE (NEGATIVE) 12/03/21 18:26 Urine Methadone Screen NEGATIVE (NEGATIVE) 12/03/21 18:26 Ur Propoxyphene Screen NEGATIVE (NEGATIVE) 12/03/21 18:26 Acetaminophen < 10 ug/mL (10-30) L 12/03/21 18:20 Ur Barbiturates Screen NEGATIVE (NEGATIVE) 12/03/21 18:26 Ur Tricyclics Screen NEGATIVE (NEGATIVE) 12/03/21 18:26 Ur Phencyclidine Scrn NEGATIVE (NEGATIVE) 12/03/21 18:26 Ur Amphetamine Screen NEGATIVE (NEGATIVE) 12/03/21 18:26 U Methamphetamines Scrn NEGATIVE (NEGATIVE) 12/03/21 18:26 U Benzodiazepines Scrn POSITIVE (NEGATIVE) H 12/03/21 18:26 Urine Cocaine Screen NEGATIVE (NEGATIVE) 12/03/21 18:26 U Cannabinoids Screen NEGATIVE (NEGATIVE) 12/03/21 18:26 Ethyl Alcohol < 5.0 mg/dL 12/03/21 18:20 Sepsis Event Note (H) - Evaluation Current Stage of Sepsis: Ruled out ABX Reporting Has patient been on IV antibiotics over the past 48 hours?: No Current Medications - Current Medications Current Medications: Active Medications Docusate Sodium (Docusate Sodium 250 Mg Capsule) 250 - 500 mg PO DAILY PRN PRN Reason: Constipation Last Admin: 01/10/22 08:12 Dose: 250 mg Ibuprofen (Ibuprofen 400 Mg Tablet) 400 mg PO Q6HR PRN PRN Reason: Pain or Fever > 38C (100.4F) Magnesium Oxide (Magnesium Oxide 400 Mg Tablet) 400 mg PO DAILY [facility] Last Admin: 02/24/22 09:32 Dose: 400 mg Multivitamins (Multivitamin Tablet) 1 tab PO DAILY [facility] Last Admin: 02/24/22 09:32 Dose: 1 tab Senna (Senna 8.6 Mg Tablet) 8.6 - 17.2 mg PO DAILY PRN PRN Reason: Constipation Last Admin: 01/10/22 08:12 Dose: 8.6 mg Thiamine HCl (Thiamine 100 Mg Tablet) 100 mg PO DAILY [facility] Last Admin: 02/24/22 09:32 Dose: 100 mg Magnesium Oxide [Mag Ox] 400 mg PO DAILY 12/01/21 Multivitamin [Theragran] 1 each PO DAILY 12/01/21
[2022-02-25] MEDS: THIAMINE 100 MG TABLET PO SCH (07:53)
[2022-02-25] MEDS: MAGNESIUM OXIDE 400 MG TABLET PO SCH (07:53)
[2022-02-25] MEDS: MULTIVITAMIN TABLET PO SCH (07:53)
--- NOTE | 2022-02-25 10:19 | PROVIDER PROGRESS NOTE ---
Assessment/Plan - Problem List (1) Metabolic encephalopathy Assessment/Plan: 02/25 pt report he does not know if he like to stay in [place], but at the same time, he hope to live with his sister at [place]. Pt has no plan for how he can be accepted for alcohol rehab although he hope to go to alcohol rehab. pt already had no alcohol drinking at hospital for nearly 3 months. At this point, pt still present poor insight and decision-making. we are working with social work team for disposition planning and administration regarding this. pt has been making a significant improvement regards to his orientation and thought process since admission, he ambulate and had good appetite but still has poor insight and decision-making with some thoughts of paranoia at times. we are working with social work for disposition planning and administration regarding this. We have discontinued all of the psychiatric medications, continue with vitamin B1 (2) COVID-19 Impression: This was resolved and he has been asymptomatic. (3) Homeless single person Impression: Continuing to work with social sciences instructor for disposition planning. We appreciate social work input. (4) Alcohol abuse Impression: He initially went through alcohol withdrawal but this is now resolved. pt has been not drinking alcohol at hospital stay for nearly 3 months. We are continuing thiamine supplementation daily. - Current Meds Current Meds: Current Medications Generic Name Dose Route Start Last Admin Trade Name Debby PRN Reason Stop Dose Admin Docusate Sodium 250 - 500 mg 12/22/21 07:23 01/10/22 08:12 Docusate Sodium 250 Mg Capsule PO 250 mg DAILY PRN Administration Constipation Magnesium Oxide 400 mg 12/05/21 09:00 02/25/22 07:53 Magnesium Oxide 400 Mg Tablet PO 400 mg DAILY MARY Administration Multivitamins 1 tab 12/05/21 09:00 02/25/22 07:53 Multivitamin Tablet PO 1 tab DAILY MARY Administration Senna 8.6 - 17.2 mg 12/22/21 07:23 01/10/22 08:12 Senna 8.6 Mg Tablet PO 8.6 mg DAILY PRN Administration Constipation Thiamine HCl 100 mg 12/04/21 09:00 02/25/22 07:53 Thiamine 100 Mg Tablet PO 100 mg DAILY MARY Administration - Lab Result Fish Bone Diagrams: 01/26/22 04:20 01/26/22 04:20 Subjective - Subjective Patient Reports: Resting Comfortably Objective Vital Signs: Vital Signs - 24 hr 02/25/22 07:50 Temperature 36.2 C L Heart Rate [ 80 Brachial] Respiratory 18 Rate Blood Pressure 132/81 H [Right Brachial artery] O2 Saturation 97 Oxygen O2 Source Room air I&O (Last 24 Hrs): Intake and Output Totals x24h 02/23/22 02/24/22 02/25/22 23:59 23:59 23:59 Intake Total 2496 1480 1380 Balance 2496 1480 1380 General: Alert, Oriented x3, No acute distress HEENT: Atraumatic Neck: Supple Lymphatic: no adenopathy Neuro: Alert, Non Focal, Oriented Times 3 Cardiovascular: Regular rate, Normal S1, Normal S2 Respiratory: Chest non-tender, No respiratory distress Abdomen: Normal bowel sounds, Soft, No tenderness Extremities: Normal pulses - Results Results: Laboratory Results WBC 5.3 x10^3/uL (4.8-10.8) 01/26/22 04:20 RBC 4.39 10^6/uL (4.70-6.10) L 01/26/22 04:20 Hgb 13.6 g/dL (14.0-18.0) L 01/26/22 04:20 Hct 41.1 % (42.0-52.0) L 01/26/22 04:20 MCV 93.6 fL (80.0-94.0) 01/26/22 04:20 MCH 31.0 pg (27.0-31.0) 01/26/22 04:20 MCHC 33.1 g/dL (32.0-36.0) 01/26/22 04:20 RDW 13.2 % (12.0-15.0) 01/26/22 04:20 Plt Count 131 10^3/uL (130-450) 01/26/22 04:20 MPV 12.8 fL (7.4-11.4) H 01/26/22 04:20 Neut # (Auto) 2.5 10^3/uL (1.5-6.6) 01/26/22 04:20 Lymph # (Auto) 1.8 10^3/uL (1.5-3.5) 01/26/22 04:20 [place] # (Auto) 0.6 10^3/uL (0.0-1.0) 01/26/22 04:20 Eos # (Auto) 0.2 10^3/uL (0.0-0.7) 01/26/22 04:20 Baso # (Auto) 0.1 10^3/uL (0.0-0.1) 01/26/22 04:20 Absolute Nucleated RBC 0.00 x10^3/uL 01/26/22 04:20 Nucleated RBC % 0.0 /100WBC 01/26/22 04:20 PT 15.1 secs (9.9-12.6) H 12/04/21 23:33 INR 1.4 (0.8-1.2) H 12/04/21 23:33 APTT 24.8 secs (24.9-33.3) L 12/03/21 18:20 Sodium 139 mmol/L (135-145) 01/26/22 04:20 Potassium 4.0 mmol/L (3.5-5.0) 01/26/22 04:20 Chloride 104 mmol/L (101-111) 01/26/22 04:20 Carbon Dioxide 25 mmol/L (21-32) 01/26/22 04:20 Anion Gap 10.0 (6-13) 01/26/22 04:20 BUN 17 mg/dL (6-20) 01/26/22 04:20 Creatinine 0.6 mg/dL (0.6-1.2) 01/26/22 04:20 Estimated GFR (MDRD) 137 (>89) 01/26/22 04:20 Glucose 154 mg/dL (70-100) H 01/26/22 04:20 Estimat Average Glucose 111 mg/dL (70-100) H 01/26/22 04:20 Hemoglobin A1c % 5.5 % (4.27-6.07) 01/26/22 04:20 Calcium 9.0 mg/dL (8.5-10.3) 01/26/22 04:20 Phosphorus 3.6 mg/dL (2.5-4.6) 12/06/21 07:04 Magnesium 2.0 mg/dL (1.7-2.8) 12/06/21 07:04 Total Bilirubin 0.5 mg/dL (0.2-1.0) 01/26/22 04:20 Direct Bilirubin 0.1 mg/dL (0.1-0.5) 01/26/22 04:20 AST 77 IU/L (10-42) H 01/26/22 04:20 ALT 104 IU/L (10-60) H 01/26/22 04:20 Alkaline Phosphatase 58 IU/L (42-121) 01/26/22 04:20 Ammonia 12.5 umol/L (7-35) 12/08/21 07:54 Total Protein 6.4 g/dL (6.7-8.2) L 01/26/22 04:20 Albumin 3.6 g/dL (3.2-5.5) 01/26/22 04:20 Globulin 2.8 g/dL (2.1-4.2) 01/26/22 04:20 Albumin/Globulin Ratio 1.1 (1.0-2.2) 12/12/21 08:07 Lipase 28 U/L (22-51) 12/06/21 07:04 Whole Bld Vitamin B1 TNP 12/04/21 16:52 Vitamin B12 317 pg/mL (180-914) 01/26/22 04:20 Folate 20.49 ng/mL (5.90 - >24.8) 01/26/22 04:20 TSH 1.25 uIU/mL (0.34-5.60) 12/03/21 18:20 Urine Color YELLOW 12/03/21 18:26 Urine Clarity CLEAR (CLEAR) 12/03/21 18:26 Urine pH 6.5 PH (5.0-7.5) 12/03/21 18:26 Ur Specific [place] 1.020 (1.002-1.030) 12/03/21 18:26 Urine Protein NEGATIVE mg/dL (NEGATIVE) 12/03/21 18:26 Urine Glucose (UA) NEGATIVE mg/dL (NEGATIVE) 12/03/21 18:26 Urine Ketones NEGATIVE mg/dL (NEGATIVE) 12/03/21 18:26 Urine Occult Blood NEGATIVE (NEGATIVE) 12/03/21 18:26 Urine Nitrite NEGATIVE (NEGATIVE) 12/03/21 18:26 Urine Bilirubin NEGATIVE (NEGATIVE) 12/03/21 18:26 Urine Urobilinogen 0.2 (NORMAL) E.U./dL (NORMAL) 12/03/21 18:26 Ur Leukocyte Esterase NEGATIVE (NEGATIVE) 12/03/21 18:26 Ur Microscopic Review NOT INDICATED 12/03/21 18:26 Urine Culture Comments NOT INDICATED 12/03/21 18:26 Nasal Adenovirus (PCR) NOT DETECTED 12/20/21 19:10 Nasal B. parapertussis DNA (PCR) NOT DETECTED 12/20/21 19:10 Nasal Coronavir 229E PCR NOT DETECTED 12/20/21 19:10 Nasal Coronavir HKU1 PCR NOT DETECTED 12/20/21 19:10 Nasal Coronavir NL63 PCR NOT DETECTED 12/20/21 19:10 Nasal Coronavir OC43 PCR NOT DETECTED 12/20/21 19:10 Nasal Enterovir/Rhinovir PCR NOT DETECTED 12/20/21 19:10 Nasal Influenza B PCR NOT DETECTED 12/20/21 19:10 Nasal Influenza A PCR NOT DETECTED 12/20/21 19:10 Nasal Parainfluen 1 PCR NOT DETECTED 12/20/21 19:10 Nasal Parainfluen 2 PCR NOT DETECTED 12/20/21 19:10 Nasal Parainfluen 3 PCR NOT DETECTED 12/20/21 19:10 Nasal Parainfluen 4 PCR NOT DETECTED 12/20/21 19:10 Nasal RSV (PCR) NOT DETECTED 12/20/21 19:10 Nasal B.pertussis DNA PCR NOT DETECTED 12/20/21 19:10 Nasal C.pneumoniae (PCR) NOT DETECTED 12/20/21 19:10 Juan Daniel Human Metapneumo PCR NOT DETECTED 12/20/21 19:10 Nasal M.pneumoniae (PCR) NOT DETECTED 12/20/21 19:10 Nasal SARS-CoV-2 (PCR) DETECTED A 12/20/21 19:10 Salicylates < 6.0 mg/dL 12/03/21 18:20 Urine Opiates Screen NEGATIVE (NEGATIVE) 12/03/21 18:26 Ur Oxycodone Screen NEGATIVE (NEGATIVE) 12/03/21 18:26 Urine Methadone Screen NEGATIVE (NEGATIVE) 12/03/21 18:26 Ur Propoxyphene Screen NEGATIVE (NEGATIVE) 12/03/21 18:26 Acetaminophen < 10 ug/mL (10-30) L 12/03/21 18:20 Ur Barbiturates Screen NEGATIVE (NEGATIVE) 12/03/21 18:26 Ur Tricyclics Screen NEGATIVE (NEGATIVE) 12/03/21 18:26 Ur Phencyclidine Scrn NEGATIVE (NEGATIVE) 12/03/21 18:26 Ur Amphetamine Screen NEGATIVE (NEGATIVE) 12/03/21 18:26 U Methamphetamines Scrn NEGATIVE (NEGATIVE) 12/03/21 18:26 U Benzodiazepines Scrn POSITIVE (NEGATIVE) H 12/03/21 18:26 Urine Cocaine Screen NEGATIVE (NEGATIVE) 12/03/21 18:26 U Cannabinoids Screen NEGATIVE (NEGATIVE) 12/03/21 18:26 Ethyl Alcohol < 5.0 mg/dL 12/03/21 18:20 Sepsis Event Note (H) - Evaluation Current Stage of Sepsis: Ruled out ABX Reporting Has patient been on IV antibiotics over the past 48 hours?: No Current Medications - Current Medications Current Medications: Active Medications Docusate Sodium (Docusate Sodium 250 Mg Capsule) 250 - 500 mg PO DAILY PRN PRN Reason: Constipation Last Admin: 01/10/22 08:12 Dose: 250 mg Ibuprofen (Ibuprofen 400 Mg Tablet) 400 mg PO Q6HR PRN PRN Reason: Pain or Fever > 38C (100.4F) Magnesium Oxide (Magnesium Oxide 400 Mg Tablet) 400 mg PO DAILY [facility] Last Admin: 02/25/22 07:53 Dose: 400 mg Multivitamins (Multivitamin Tablet) 1 tab PO DAILY [facility] Last Admin: 02/25/22 07:53 Dose: 1 tab Senna (Senna 8.6 Mg Tablet) 8.6 - 17.2 mg PO DAILY PRN PRN Reason: Constipation Last Admin: 01/10/22 08:12 Dose: 8.6 mg Thiamine HCl (Thiamine 100 Mg Tablet) 100 mg PO DAILY [facility] Last Admin: 02/25/22 07:53 Dose: 100 mg Magnesium Oxide [Mag Ox] 400 mg PO DAILY 12/01/21 Multivitamin [Theragran] 1 each PO DAILY 12/01/21
[2022-02-26 07:53] VITALS: BP 134/86
[2022-02-26] MEDS: MAGNESIUM OXIDE 400 MG TABLET PO SCH (08:05)
[2022-02-26] MEDS: THIAMINE 100 MG TABLET PO SCH (08:05)
[2022-02-26] MEDS: MULTIVITAMIN TABLET PO SCH (08:05)
--- NOTE | 2022-02-26 13:22 | Discharge Plan ---
Discharge Plan Problem Reviewed?: Yes Disposition: Home, Self Care Condition: Stable Diet: Regular Activity Restrictions: Activity as Tolerated Shower Restrictions: No (fall precaution) Instruction Topics: Alcoholism, Alcoholism Impact Health Concerns: alcoholism Plan of Treatment: You really want to be discharged. fiber optic assembly worker works with you for your safety discharge plan. You are happy for the discharge plan. your daughter will apple picker you. It is very important, as we discussed, for you to avoid alcohol drinking. Care Goals: Stabilization and improvement of your medical conditions Assessment: Discussed the care plan with you and your family, Answered your questions, you understood and agreed Additional Instructions or Follow Up instructions: You may follow-up with your PCP in 1 to 2 weeks. should your symptoms return or worsen, you may present to the ER or call 911 for help No Smoking: If you smoke, Please STOP! Call for help.
--- NOTE | 2022-02-26 13:39 | DISCHARGE SUMMARY ---
Discharge Summary Admit Date: 12/04/21 Discharge Date: 02/26/22 Discharging Provider: Nestor Garcia Condition at Discharge: Stable Discharge Disposition: 01 Home, Self Care Discharge Facility Name: home - DIAGNOSES Discharge Diagnoses with Status of Each Condition: (1) Wernicke encephalopathy (alcoholic) pt has presumed to have alcoholic Wernicke encephalopathy. pt has been making a significant improvement regards to his orientation and thought process since admission, he ambulate without any difficult and has good appetite. He is Hemodynamically stable now. pt request to be discharge. dam worker contacted with pt's sister and daughter, and reported they had a safety discharge plan for pt. Pt will live with her daughter for short period time then he will live with her sister at [place]. pt is very happy with the discharge plan. Pt had legal consultation for his guardianship process and discharge planing in the hospital as well. It is strongly advised to pt for avoiding drinking of alcohol. Pt state he will avoid alcohol drinking forever, and will join alcohol avoid program as he need. Pt may resume his home medications. (2) COVID-19 This was resolved and he has been asymptomatic. (3) Homeless single person dam worker had safety discharge plan for pt. Pt will be supported and lived by his family. (4) Alcohol abuse pt has a long hx of alcohol abuse in the past. pt had no alcohol drinking for nearly 3 months at hospital. pt had extensive education for alcohol abuse. pt state he will avoid drinking alcohol forever. dam worker was consulted to help pt. - HPI History of Present Illness: refer from Dr. Melchor's HPI on 12/04/21 History of present illness and ER course: The patient is a 61-year-old white male with longstanding history of chronic alcoholism. He was first evaluated in the ER on November 22, 2020, was brought in by the police requesting evaluation to determine whether the patient was fit for confinement. At that time the patient was found with alcohol intoxication but no other acute problem, was discharged from the ER and taken to correctional facility. Subsequently he had multiple ER visits to get evaluated for altered mental status, was treated for dehydration/was hydrated, started on treatment for alcohol withdrawal, was given Librium and Ativan which therapies could be continued at the correctional facility. He was also evaluated for unsteady gait and fall with closed head injury/was found with no acute intracranial abnormality. As long as he was incarcerated his safety was ensured and he could be continued on treatment for alcohol withdrawal. After he was released from the correctional facility however, he continued with hallucination, ataxia and confusion therefore was brought back to the ER. He had a prolonged ER stay for over 24 hours, was medicated with Librium, Ativan, Zyprexa and with vitamin/thiamine replacement. Encephalopathy has not cleared. CT scan of the brain was repeated, showed no acute intracranial abnormality. It was felt that the patient's prolonged and ongoing altered mental status was secondary to Wernicke's encephalopathy/chronic alcoholism with superimposed alcohol withdrawal, therefore hospital admission was requested. I evaluated the patient several times during the admission process, he was agitated, with fluctuating mentation and required multiple doses of IV Ativan, Haldol plus at some point required restraints as well. - HOSPITAL COURSE Hospital Course: Patient was admitted to [facility] for hallucination, unsteady gait, Ataxia, frequent falls, metabolic/Wernickes encephalopathy, Delirium, Covid 19 test positive without respiratory distress, chronic alcoholism incarcerated in the past, elevated liver enzyme secondary to chronic alcoholic abuse, homelessness status. Pt also had telepsych consultation. Patient was found confused, disoriented, and lack capacity for medical decision making, and does not appear to have ability to take care of his own needs, recommended a guardian be appointed on the behalf patient to assist with medical decision making and the arrangement for placement. Patient had secondary Telepsych consultation. Patient was noted to have difficulty with attention, calculation, recall and had issue with his short-term memory. Patient also had twice occupation therapists examination by [facility] Mental Status (UMS) tool. On the first examination, Patient had scored 16/30, which indicates moderate-severe cognitive impairment and possibly dementia. On most recently examination, Patient scored 19/30, which still indicates moderate-severe cognitive impairment and possibly dementia. Medical team continue to examinate and medically manage patient since patient was admitted. After pt was treated in the hospital, Patient made significant progress. Pt was alert, oriented to himself, place, situations, but also occasionally vague on the date, still occasionally delusional and paranoid. Patient had social media campaign manager consult, and legal consultation for his guardianship process at the hospital. pt continue to have significant improvement regards to his orientation and thought process. he ambulate without any difficult and has good appetite. He is Hemodynamically stable now. pt requested to be discharge at this point. dam worker contacted with pt's sister and daughter, and reported they had a safety discharge plan for pt. Pt was very happy for his discharge plan. dam worker also had legal consultation regarding pt's discharge plan. pt will be picked by his daughter on today and then he move and live with his sister at [place]. - ALLERGIES Allergies/Adverse Reactions: Allergies Allergy/AdvReac Type Severity Reaction Status Date / Time Penicillins AdvReac Hives Verified 12/03/21 17:25 - MEDICATIONS Home Medications: Ambulatory Orders Medication Instructions Recorded Confirmed Thiamine [Vitamin B-1] 100 mg PO DAILY #30 tablet 05/31/21 12/04/21 Magnesium Oxide [Mag Ox] 400 mg PO DAILY 12/01/21 12/04/21 Multivitamin [Theragran] 1 each PO DAILY 12/01/21 12/04/21 - PHYSICAL EXAM AT DISCHARGE General Appearance: positive: No acute distress, Alert. negative: Lethargic Eyes Bilateral: positive: Normal inspection, No lid inflammation ENT: positive: ENT inspection nml, No signs of dehydration. negative: Purulent nasal drainage Neck: positive: Nml inspection, Trachea midline. negative: Tracheal deviation Respiratory: positive: Chest non-tender, No respiratory distress. negative: Wheezes, Rales Cardiovascular: positive: Regular rate & rhythm, No murmur. negative: Tachycardia, Bradycardia, Systolic murmur Peripheral Pulses: positive: 2+ Abdomen: positive: Non-tender, Nml bowel sounds, No distention. negative: Tenderness Back: positive: Nml inspection Skin: positive: Color nml, Warm, Dry. negative: Cyanosis Extremities: positive: Non-tender, Full ROM, Nml appearance Neurologic/Psychiatric: positive: Oriented x3, Motor nml, Sensation nml. negative: Weakness, Sensory loss, Facial droop, Slurred/abnml speech, Depressed mood/affect - LABS Result Diagrams: 01/26/22 04:20 01/26/22 04:20 - SEPSIS Current Stage of Sepsis: Ruled out - FOLLOW UP Follow Up: You may follow-up with your PCP in 1 to 2 weeks. should your symptoms return or worsen, you may present to the ER or call 911 for help - TIME SPENT Time Spent in Discharge (Minutes): 30
== END 2022-02-26 17:12 | disposition home or self-care (01) | DRG 640 ==
LOC: EDBD → ED 17:19 → OBSVTOIN 12-04 21:17 → MS2 12-04 21:17
PROVIDERS: ADMIT Internal Medicine; ATTEND Nurse Practitioner Gerontology
DX: E51.2 Wernicke's encephalopathy (principal); U07.1 COVID-19; F10.239 Alcohol dependence with withdrawal, unspecified; F10.231 Alcohol dependence with withdrawal delirium; K70.30 Alcoholic cirrhosis of liver without ascites; S00.83XA Contusion of other part of head, initial encounter; W19.XXXA Unspecified fall, initial encounter; E04.1 Nontoxic single thyroid nodule; I95.1 Orthostatic hypotension; F22 Delusional disorders; F51.5 Nightmare disorder; R26.81 Unsteadiness on feet; R45.1 Restlessness and agitation; R74.01 Elevation of levels of liver transaminase levels; Z59.00 Homelessness unspecified; Z75.1 Person awaiting admission to adequate facility elsewhere; Z78.1 Physical restraint status; Z88.0 Allergy status to penicillin; Z91.81 History of falling
CPT/HCPCS: 0202U; 36415; 70450; 71045; 74177; 80048; 80053; 80076; 80306; 80307; 80320; 80329; 81003; 82140; 82607; 82746; 83036; 83690; 83735; 84100; 84425; 84443; 85025; 85610; 85730; 92507; 92523; 96365; 96372; 96375; 97163; 97164; 97165; 97168; 99285; A9270; J2060; J3411; J7040; Q3014; Q9967; 81001; 87086

== ENCOUNTER 2023-05-22 19:45 | Inpatient (IN) | payer MEDICAID, OTHER ==
--- NOTE | 2023-05-22 20:10 | ED Physician Documentation ---
PD HPI ALTERED MENTAL STATUS - Stated complaint Stated Complaint: AMS - Chief complaint Chief Complaint: Trauma Hd/Nk - History obtained from History obtained from: Patient, EMS - Additional information Additional information: LORIE. HPI is from EMS as well as from patient. Patient is homeless (lives out of his car). Patient tells me that he lost his balance and fell 2 days ago, struck his head/face against furniture but denies LOC. He says that since then, he has had generalized weakness, increasing difficulty ambulating, and has had a few more falls due to his weakness. Patient's past medical history includes alcoholism, and he admits to drinking alcohol today, unclear how long he has been drinking (when I ask if he has been drinking for days, weeks, or months, he indicates he has been drinking for at least a few weeks). EMS noted room air pulse ox 90% , improved to low/mid 90s with 4 liters/minute NC oxygen. Patient does not use oxygen and denies h/o COPD/emphysema/asthma. Review of Systems Unable to obtain: Other (many of patient's answers are slow and uncertain, thus ROS is questionable reliability) PD PAST MEDICAL HISTORY - Past Medical History Cardiovascular: None Respiratory: None Neuro: None Endocrine/Autoimmune: None GI: Cirrhosis Musculoskeletal: None - Present Medications Home Medications: Ambulatory Orders Medication Instructions Recorded Confirmed Thiamine [Vitamin B-1] 100 mg PO DAILY #30 tablet 05/31/21 05/22/23 Magnesium Oxide [Mag Ox] 400 mg PO DAILY 12/01/21 05/22/23 Multivitamin [Theragran] 1 each PO DAILY 12/01/21 05/22/23 - Allergies Allergies/Adverse Reactions: Allergies Allergy/AdvReac Type Severity Reaction Status Date / Time Penicillins AdvReac Hives Verified 05/22/23 20:09 - Social History Does the pt smoke?: No Smoking Status: Never smoker Does the pt drink ETOH?: Yes Does the pt have substance abuse?: No PD ED PE NORMAL - Vitals Vital signs reviewed: Yes - General General: Alert and oriented X 3 (answers orientation questions correctly albeit slowly), No acute distress, Other (unkempt appearance) - HEENT HEENT: PERRL, EOMI, Other (parched mucous membranes; left periorbital echymosis without edema) - Neck Neck: Supple, no meningeal sign - Cardiac Cardiac: RRR, No murmur - Respiratory Respiratory: No respiratory distress, Other (bilateral end-expiratory wheezing, decreased air movement) - Abdomen Abdomen: Soft, Non tender - Derm Derm: Normal color, Warm and dry - Extremities Extremities: No edema Results - Vitals Vitals: Vital Signs - 24 hr 05/22/23 05/22/23 05/22/23 19:48 20:28 20:51 Temperature 37.1 C Heart Rate 100 50 L 91 Respiratory 22 20 21 Rate Blood Pressure 144/97 H 144/86 H 144/86 H O2 Saturation 88 L 96 96 If not protocol 4 4 : Oxygen Flow, liters/minute 05/22/23 05/22/23 05/22/23 20:55 21:36 22:07 Temperature Heart Rate 102 H 92 89 Respiratory 22 18 18 Rate Blood Pressure 118/71 138/85 H O2 Saturation 96 94 If not protocol 2 4 4 : Oxygen Flow, liters/minute 05/22/23 05/22/23 05/23/23 22:29 23:17 00:15 Temperature 36.3 C L 36.7 C Heart Rate 91 89 96 Respiratory 17 19 19 Rate Blood Pressure 138/85 H 120/73 118/70 O2 Saturation 94 95 95 If not protocol 4 4 4 : Oxygen Flow, liters/minute 05/23/23 05/23/23 05/23/23 01:30 02:00 02:30 Temperature Heart Rate 97 100 94 Respiratory 19 18 20 Rate Blood Pressure 122/83 H 133/74 H 132/77 H O2 Saturation 94 93 95 If not protocol 4 4 4 : Oxygen Flow, liters/minute 05/23/23 05/23/23 05/23/23 03:00 03:30 04:00 Temperature Heart Rate 86 96 89 Respiratory 17 20 20 Rate Blood Pressure 125/75 135/78 H 132/75 H O2 Saturation 93 96 94 If not protocol 4 4 4 : Oxygen Flow, liters/minute 05/23/23 05/23/23 05/23/23 04:25 04:45 04:55 Temperature 37.8 C 36.8 C Heart Rate 96 101 H Respiratory 18 22 Rate Blood Pressure 138/92 H 140/81 H O2 Saturation 88 L 92 If not protocol 3 : Oxygen Flow, liters/minute 05/23/23 05/23/23 05/23/23 05:20 05:24 05:45 Temperature Heart Rate 91 92 75 Respiratory 16 23 22 Rate Blood Pressure 140/81 H 114/82 H O2 Saturation 99 93 If not protocol 4 4 2 : Oxygen Flow, liters/minute 05/23/23 05/23/23 05/23/23 06:50 07:00 07:25 Temperature 37.2 C Heart Rate 102 H 98 94 Respiratory 25 H 22 20 Rate Blood Pressure 124/74 126/72 O2 Saturation 94 95 If not protocol 2 2 : Oxygen Flow, liters/minute 05/23/23 05/23/23 05/23/23 07:35 08:00 08:22 Temperature Heart Rate 106 H 92 103 H Respiratory 24 23 27 H Rate Blood Pressure 117/82 H 135/70 H O2 Saturation 95 89 L 88 L If not protocol : Oxygen Flow, liters/minute Oxygen O2 Source Room air Oxygen Flow Rate 4 - Labs Labs: Laboratory Tests 05/22/23 05/22/23 05/22/23 20:14 20:14 20:14 WBC 4.8 RBC 4.60 L Hgb 13.8 L Hct 39.5 L MCV 85.9 MCH 30.0 MCHC 34.9 RDW 16.2 H Plt Count 57 L Neut # (Auto) 3.7 Lymph # (Auto) 0.6 L [place] # (Auto) 0.4 Eos # (Auto) 0.0 Baso # (Auto) 0.0 Absolute Nucleated RBC 0.00 Nucleated RBC % 0.0 Manual Slide Review Indicated Platelet Estimate DECREASED (<130,000) Platelet Morphology NORMAL APPEARANCE RBC Morph Micro Appear NORMAL APPEARANCE D-Dimer Sodium 134 L Potassium 3.6 Chloride 95 L Carbon Dioxide 25 Anion Gap 14.0 H BUN 22 H Creatinine 0.6 Estimated GFR (MDRD) 136 Glucose 119 H Calcium 8.2 L Total Bilirubin 1.2 H AST 264 H ALT 118 H Alkaline Phosphatase 126 H B-Natriuretic Peptide Total Protein 6.9 Albumin 3.7 Globulin 3.2 Albumin/Globulin Ratio 1.2 Lipase 106 H Ethyl Alcohol 291.5 05/23/23 05/23/23 07:31 07:31 WBC RBC Hgb Hct MCV MCH MCHC RDW Plt Count Neut # (Auto) Lymph # (Auto) [place] # (Auto) Eos # (Auto) Baso # (Auto) Absolute Nucleated RBC Nucleated RBC % Manual Slide Review Platelet Estimate Platelet Morphology RBC Morph Micro Appear D-Dimer 730.4 H Sodium Potassium Chloride Carbon Dioxide Anion Gap BUN Creatinine Estimated GFR (MDRD) Glucose Calcium Total Bilirubin AST ALT Alkaline Phosphatase B-Natriuretic Peptide 23 Total Protein Albumin Globulin Albumin/Globulin Ratio Lipase Ethyl Alcohol - Rads (name of study) CTH Relevant Findings:: Prelim report reviewed, See rad report CT cervical spine Relevant Findings:: Prelim report reviewed, See rad report CXR Relevant Findings:: Prelim report reviewed, See rad report PD Medical Decision Making - ED course Complexity details: reviewed old records, reviewed results, re-evaluated pat ient, considered differential, d/w patient ED course: Blood tests are notable for thrombocytopenia (platelets 57), abnormal liver function tests (comparable to previous results), elevated BUN to creatinine ratio (22 BUN, 0.6 creatinine), and serum alcohol level of 291. Shortly after arrival, the oxygen that was being provided by EMS is discontinued, and he rapidly desaturates to 88% with a strong, correlating pleth on the monitor. He is given a DuoNeb and placed back on 4 L of oxygen. Due to the repeated falls, a CT head is undertaken as well as CT of the cervical spine; there are no acute/concerning findings on either of these studies. Chest x-ray Is interpreted by radiologist as "no acute cardiopulmonary process. Chronic mild interstitial prominence, perhaps age-related. Chronic asymmetry elevation of the left hemidiaphragm to moderate degree". Unclear as to why patient is hypoxic, but he is a smoker and does not see a primary care provider on a regular basis; differential diagnosis could include new onset of COPD. Early in patient's ED stay, he exhibited increasing generalized tremulousness suggestive of alcohol withdrawal. He is given 1 mg IV Ativan. He is also given 1 L normal saline with multivitamins, thiamine, and a dose of p.o. folate. Subsequently, he is given another liter of normal saline. Later in his stay, he was again trialed on room air and once again dropped to 88% pulse ox with strong, correlating pleth on the monitor. He is thus given a second DuoNeb and put back on 4 L of nasal cannula oxygen. He said he felt better after the 1 mg of Ativan, but his tremulousness was not improved on my exam, and thus he is given a second dose of 1 mg IV Ativan. Late in his ED stay, the patient wanted to use the bathroom; ED RN says that the patient was unable to ambulate without maximum assistance. ED RN Alecia tells me that the patient clearly would have fallen if she was not standing next to him and assisting him the entire way from room to the bathroom and back to his stretcher. ED RN is describing combination of generalized weakness as well as ataxia. Care of this patient is turned over to the oncoming ED physician (Dr. Washburn) at the end of my shift pending disposition. Given his ongoing hypoxia, as well as rapidly increasing signs and symptoms of significant alcohol withdrawal, he would likely benefit from admission to the hospital once a bed becomes available.
[2023-05-22 20:22] LABS: BASOPHILS % (AUTO) 0.4 %; HCT - HEMATOCRIT 39.5 % (42.0-52.0); HGB - HEMOGLOBIN 13.8 g/dL (14.0-18.0); LYMPHOCYTES # (AUTO) 0.6 10^3/uL (1.5-3.5); LYMPHOCYTES % (AUTO) 13.2 %; MEAN CORPUSCULAR HGB CONC 34.9 g/dL (32.0-36.0); MEAN CORPUSCULAR VOLUME 85.9 fL (80.0-94.0); MONOCYTES # (AUTO) 0.4 10^3/uL (0.0-1.0); NEUTROPHILS # (AUTO) 3.7 10^3/uL (1.5-6.6); PLT - PLATELET COUNT 57 10^3/uL (130-450); RED CELL DISTRIBUTION WIDTH 16.2 % (12.0-15.0); WHITE BLOOD COUNT 4.8 x10^3/uL (4.8-10.8)
[2023-05-22 20:32] LABS: ALBUMIN 3.7 g/dL (3.2-5.5); ALBUMIN/GLOBULIN RATIO 1.2 (1.0-2.2); BILIRUBIN,TOTAL 1.2 mg/dL (0.2-1.0); CALCIUM 8.2 mg/dL (8.5-10.3); CREATININE 0.6 mg/dL (0.6-1.2); POTASSIUM 3.6 mmol/L (3.5-5.0); TOTAL PROTEIN 6.9 g/dL (6.7-8.2)
[2023-05-22] MEDS ORDERED: THIAMINE INJ 100 MG, FOLIC ACID INJ 1 MG in SODIUM CHLORIDE 0.9% 1,000 ML IV STA (20:32)
[2023-05-22] MEDS ORDERED: IPRATROPIUM/ALBUTEROL 3 ML NEB INH STA (20:38)
[2023-05-22 20:39] LABS: PLATELET ESTIMATE, MANUAL DECREASED (<130,000) (NORMAL); PLATELET MORPHOLOGY NORMAL APPEARANCE (NORMAL); RBC MORPHOLOGY (MULTIPLE) NORMAL APPEARANCE (NORMAL); SLIDE REVIEW? Indicated
[2023-05-22] MEDS ORDERED: FOLIC ACID IV STA ×6 (20:39→21:06)
[2023-05-22] MEDS ORDERED: MAGNESIUM SULFATE IV STA ×6 (20:39→21:06)
[2023-05-22] MEDS ORDERED: [UNRECOGNIZED DRUG - OTHER] IV STA (20:39)
[2023-05-22] MEDS ORDERED: THIAMINE IV STA ×6 (20:39→21:06)
[2023-05-22] MEDS ORDERED: THIAMINE 100 MG/1 ML 2 ML MDV ONE ×2 (20:43→21:09)
[2023-05-22] MEDS ORDERED: FOLIC ACID 5 MG/1 ML 10ML MDV ONE ×2 (20:43→21:09)
[2023-05-22] MEDS ORDERED: FOLIC ACID 1 MG TABLET PO STA (21:06)
[2023-05-22] MEDS ORDERED: [UNRECOGNIZED DRUG - OTHER] IV STA ×5 (21:06)
[2023-05-22] MEDS ORDERED: MAGNESIUM SULFATE 1 GM/2 ML VIAL ONE (21:09)
--- NOTE | 2023-05-22 21:23 | CT Report ---
PROCEDURE: CERVICAL SPINE WO INDICATIONS: fall, neck pain TECHNIQUE: Noncontrast 3 mm thick sections acquired from the skull base to the T4 level. Sagittal and coronal r eformats were then constructed. For radiation dose reduction, the following was used: automated exp osure control, adjustment of mA and/or kV according to patient size. COMPARISON: Similar CT 12/01/2021. FINDINGS: Image quality: Excellent. Bones: No fractures or dislocations. Visualized superior ribs are intact. Soft tissues: Prevertebral soft tissues are normal in thickness. No paravertebral hematomas. No ap ical pneumothoraces. IMPRESSION: No acute trauma found. Mid cervical moderate degenerative disc disease again noted. Reviewed by: Oc Dial MD on 05/22/2023 9:22 PM PDT Approved by: Oc Dial MD on 05/22/2023 9:22 PM PDT Station ID: [id number]
--- NOTE | 2023-05-22 21:24 | CT Report ---
PROCEDURE: HEAD WO INDICATIONS: fall, PATTERSON TECHNIQUE: Noncontrast 4.5 mm thick angled axial sections acquired from the foramen magnum to the vertex. For r adiation dose reduction, the following was used: automated exposure control, adjustment of mA and/or kV according to patient size. COMPARISON: None. FINDINGS: Image quality: Excellent. CSF spaces: Basal cisterns are patent. No extra-axial fluid collections. Ventricles are normal in size and shape. Brain: No midline shift. No intracranial masses or hemorrhage. Daniels-white matter interface is norm al. Skull and face: Calvarium and visualized facial bones are intact, without suspicious lesions. Sinuses: Visualized sinuses and mastoids are clear. IMPRESSION: No trauma found. Reviewed by: Oc Dial MD on 05/22/2023 9:23 PM PDT Approved by: Oc Dial MD on 05/22/2023 9:23 PM PDT Station ID: [id number]
--- NOTE | 2023-05-22 21:25 | XRAY Report ---
PROCEDURE: Chest 2 View X-Ray INDICATIONS: wheezing, hypoxia TECHNIQUE: 2 views of the chest were acquired. COMPARISON: None. FINDINGS: Surgical changes and devices: None. Lungs and pleura: No pleural effusions or pneumothorax. Lungs are unchanged with a chronic mild int erstitial prominence and elevation of the left hemidiaphragm also is stable over time.. Mediastinum: Mediastinal contours appear normal. Heart size is normal. Bones and chest wall: No suspicious bony lesions. Overlying soft tissues appear unremarkable. IMPRESSION: No acute cardiopulmonary process. Chronic mild interstitial prominence, perhaps age-related. Chronic asymmetric elevation of the left h emidiaphragm to moderate degree. Reviewed by: Oc Dial MD on 05/22/2023 9:24 PM PDT Approved by: Oc Dial MD on 05/22/2023 9:24 PM PDT Station ID: [id number]
[2023-05-23] MEDS ORDERED: LORazepam 2 MG/ML VIAL IVP STA ×5 (04:50→11:17)
[2023-05-23] MEDS ORDERED: IPRATROPIUM/ALBUTEROL 3 ML NEB INH STA (04:50)
[2023-05-23] MEDS ORDERED: THIAMINE INJ 100 MG, FOLIC ACID INJ 1 MG in SODIUM CHLORIDE 0.9% 1,000 ML IV STA (07:22)
[2023-05-23] MEDS ORDERED: ALBUTEROL NEB 2.5 MG/3 ML INH STA (07:25)
[2023-05-23] MEDS ORDERED: PHENobarbital 65 MG/ML VIAL IV STA (08:20)
[2023-05-23] MEDS ORDERED: iohexoL-300 100 ML VIAL ONE (08:32)
[2023-05-23] MEDS ORDERED: iohexoL-300 100 ML VIAL IVP ONE (08:53)
[2023-05-23 08:58] LABS: CORONAVIRUS 229E-RESP PCR NOT DETECTED; CORONAVIRUS HKU1-RESP PCR NOT DETECTED; CORONAVIRUS NL63-RESP PCR NOT DETECTED; CORONAVIRUS OC43-RESP PCR NOT DETECTED; HUMAN METAPNEUMOVIRUS NOT DETECTED; SARS-CoV-2 -RESP PCR PANEL NOT DETECTED
[2023-05-23 08:59] LABS: B. PARAPERTUSSIS- RESP PCR PAN NOT DETECTED; B. PERTUSSIS- RESP PCR PANEL NOT DETECTED; C. PNEUMONIAE- RESP PCR PANEL NOT DETECTED; INFLUENZA A- RESP PCR PANEL NOT DETECTED; INFLUENZA B - RESP PCR PANEL NOT DETECTED; M. PNEUMONIAE- RESP PCR PANEL NOT DETECTED; PARAINFLUENZA VIRUS 1 NOT DETECTED; PARAINFLUENZA VIRUS 2 NOT DETECTED; PARAINFLUENZA VIRUS 3 NOT DETECTED; PARAINFLUENZA VIRUS 4 NOT DETECTED; RHINOVIRUS/ENTEROVIRUS DETECTED; RSV- RESP PCR PANEL NOT DETECTED
--- NOTE | 2023-05-23 09:17 | CT Report ---
PROCEDURE: ANGIO CHEST W/WO INDICATIONS: hypoxic, weak CONTRAST: 80ml omni 300 TECHNIQUE: After the administration of intravenous contrast, 2 mm axial images were acquired from the pulmonary apices to the posterior costophrenic angles during the arterial phase. In addition, 1 mm lung kernel and 5 mm soft tissue kernel reconstructions were performed. 3-dimensional coronal oblique maximum int ensity projection (MIP) reformats, 8 mm axial MIP, and 5 mm coronal and sagittal MPR reformats were t hen performed through the thorax. For radiation dose reduction, the following was used: automated exp osure control, adjustment of mA and/or kV according to patient size. COMPARISON: None FINDINGS: Image quality: Excellent. Large vessels: No filling defects within the opacified pulmonary arteries, accounting for motion and contrast timing. No evidence of acute aortic syndrome or aortic aneurysm. Lungs and pleura: Bibasilar dependent atelectasis are seen posteriorly. Mild elevation of left hemidi aphragm is also seen. No definite focal infiltrate. No pleural effusion or pneumothorax. No gross shannan picious pulmonary nodule or mass is noted. Mediastinum: Heart size is enlarged. No pericardial effusion. No large vessel abnormality. No mediast inal adenopathy by size criteria. Chest wall and lower neck: Asymmetrically enlarged right thyroid lobe is seen with hypodense nodule m easures 2.9 x 1.5 cm in size. No axillary or supraclavicular adenopathy by size. Bones: No aggressive osseous abnormality. Upper Abdomen: Severe hepatic steatosis is seen, no gross abnormality is seen in visualized portion o f liver, spleen and bilateral adrenal glands.. IMPRESSION: 1. No evidence of central pulmonary emboli. No thoracic aortic aneurysm. 2. Cardiomegaly, no pericardial effusion. No gross mediastinal or hilar lymphadenopathy. 3. Bibasilar atelectasis. No definite focal infiltrate. No pleural effusion or pneumothorax. 4. Incidentally noted of an enlarged right thyroid lobe nodule, consider follow-up study without blake ent ultrasound of thyroid gland. Reviewed by: Nii Lee MD on 05/23/2023 9:15 AM PDT Approved by: Nii Lee MD on 05/23/2023 9:15 AM PDT Station ID: [id number]
[2023-05-23] MEDS ORDERED: ONDANSETRON 4 MG/2 ML VIAL IVP PRN (11:12)
--- NOTE | 2023-05-23 11:22 | ED Physician Documentation ---
ED Addendum - Addendum Addendum: 05/23/23 11:18 On change of shift the patient is confused and shaky with borderline tachycardia approximately 100. He is able to answer questions sluggishly. We did have nursing calculate his CIWA score and it was 21. He is given some more IV fluids and more thiamine as well as phenobarbital 65 mg IV and lorazepam 1 mg IV. Recheck after these medications and the patient was calmer and less shaky. Still conversant. Good oxygenation on nasal cannula. His breath sounds are good without any noted crackles or wheezes. We did try him on room air oxygen again and he went down to 86 to 88% and that was even before the lorazepam. He had been lower last evening as well. We resu med him on the nasal cannula and has 94 to 96% sats on 2 L. Respiratory viral panel is positive for rhinovirus. Chest x-ray does not show any obvious infiltrates. Given his lower oxygenation, I also did a D-dimer test that was positive in the nonspecific range of 730. CTA of the chest was done and did not show any emboli. No other obvious acute problems. The patient has multiple problems most notable the alcohol withdrawal and delirium with high CIWA score. He also is having hypoxia presumed of a viral cause with a positive respiratory panel for rhinovirus. He has general weakness and unable to really stand and walk on his own at this point as well. I talked with the hospitalist who agrees to admit the patient. Given his elevated CIWA score and degree of withdrawal symptoms, he will be placed in the ICU. Disposition: The patient is a admitted to the hospitalist service in stable condition Diagnoses: 1. Alcohol withdrawal delirium 2. Alcohol disuse disorder 3. Viral respiratory infection 4. Hypoxia 5. General weakness
--- NOTE | 2023-05-23 11:23 | HISTORY & PHYSICAL EXAMINATION ---
Chief Complaint - Chief Complaint Chief Complaint: Found down, BIBA, tremulous & in alcohol withdrawal History of Present Illness - Admitted From Admitted From:: ED - History Obtained From History obtained from: ED provider - History of Present Illness HPI Comment/Other: This is a 63-year-old male with a history of alcohol abuse. He has had prior admissions here for alcohol withdrawal, the last was from Nov 2021 through Feb 2022. At that time, he first underwent alcohol withdrawal, was hallucinating and delusional and required Haldol and Risperidone and restraints. He had a telepsych evaluation and was deemed not competent to make decisions for himself. The reason for the prolonged hospitalization was to establish guardianship. He was finally discharged under the care of his daughter and then was to live with his sister in [place]. We do not know how his living situation changed after he left the hospital then. Last night he was found to be confused and brought in by ambulance. He lives in his car and is homeless. He described many recent falls. His alcohol level was positive at presentation in the ER. After that he started going into alcohol withdrawal with persistent confusion, ataxia and weakness, and tremulousness. He received several doses of IV Ativan pushes. Also in the ER he was noted to be hypoxic with O2 saturations of 88% on room air. He was started on supplemental oxygen. When the oxygen was removed several hours later to assess if he could be discharge, he was still hypoxic at 88% on room air and was still ataxic and had a near fall while being assisted to walk to the bathroom in the ER. Other work-up shows that he has transaminitis, low platelet count, and his respiratory PCR is positive for enterovirus and rhinovirus. He had a CTA chest that showed no PE and no infiltrates. The ED provider then reached out to me on the Hospitalist service and we spoke about this patient. His last CIWA score was 21. The patient will be admitted to the ICU for managing active alcohol withdrawal and scoring very high on CIWA protocol, needing high-dose ICU-protocol Ativan treatment. History - Past Medical History Cardiovascular: reports: None Respiratory: reports: None Neuro: reports: None Endocrine/Autoimmune: reports: None GI: reports: Cirrhosis Musculoskeletal: reports: None - Family & Social History Living arrangement: Homeless Living Situation: Alone - Substance History Abuse: Recurrent use of substance despite neg consequences: Alcohol - POLST Patient has POLST: No Meds/Allgy - Home Medications Home Medications: Ambulatory Orders Medication Instructions Recorded Confirmed Thiamine [Vitamin B-1] 100 mg PO DAILY #30 tablet 05/31/21 05/22/23 Magnesium Oxide [Mag Ox] 400 mg PO DAILY 12/01/21 05/22/23 Multivitamin [Theragran] 1 each PO DAILY 12/01/21 05/22/23 - Allergies Allergies/Adverse Reactions: Allergies Allergy/AdvReac Type Severity Reaction Status Date / Time Penicillins AdvReac Hives Verified 05/22/23 20:09 Review of Systems - Constitutional Constitutional: reports: Weakness - Neurological Neurological: reports: General weakness, Other (Freq falls) - All Other Systems All Other Systems: reports: Other (He is confused and also is lethargic after receiving Ativan, cannot give any further details in HPI or ROS) Exam - Vital Signs Vital Signs: Vital Signs x48h Temp Pulse Resp BP Pulse Ox O2 Flow Rate 05/23/23 10:00 96 22 128/74 96 05/23/23 09:58 95 21 126/76 95 2 05/23/23 09:07 36.8 C 05/23/23 09:03 100 23 125/77 91 L 2 05/23/23 08:52 99 22 124/74 88 L 05/23/23 08:22 103 H 27 H 88 L 05/23/23 08:00 92 23 135/70 H 89 L 05/23/23 07:35 106 H 24 117/82 H 95 05/23/23 07:25 94 20 05/23/23 07:00 98 22 126/72 95 2 05/23/23 06:50 37.2 C 102 H 25 H 124/74 94 2 05/23/23 05:45 75 22 114/82 H 93 2 05/23/23 05:24 92 23 140/81 H 99 4 05/23/23 05:20 91 16 4 05/23/23 04:55 36.8 C 101 H 22 140/81 H 92 3 05/23/23 04:45 96 18 138/92 H 88 L 05/23/23 04:25 37.8 C 05/23/23 04:00 89 20 132/75 H 94 4 05/23/23 03:30 96 20 135/78 H 96 4 - Physical Exam General Appearance: positive: Mild distress, Lethargic, Other (Disheveled hair. Dirt under his fingernail. Poorly kempt.) Eyes Bilateral: positive: EOMI, Other (Has a large bruise over his left eye and medial left bridge of his nose) ENT: positive: Dry mucous membranes, Other (Poor dentition) Neck: positive: Nml inspection, No JVD Respiratory: positive: No respiratory distress, Breath sounds nml Cardiovascular: positive: Regular rate & rhythm, No murmur Abdomen: positive: Non-tender, Nml bowel sounds, No distention Skin: positive: Warm, Dry Extremities: positive: Non-tender, No pedal edema Neurologic/Psychiatric: positive: Motor nml, Disoriented to person, Disoriented to place, Disoriented to time, Other (He has a marked tremor of both hands, no nystagmus. He has poor memory. He is answering slowly and in 2 and 3 word sentences.) Conclusion/Plan - Problem List (1) Alcohol withdrawal delirium Conclusion/Plan: This patient is a known alcoholic with history of liver cirrhosis Plan: We will admit pt to the ICU on telemetry Order CIWA protocol with high-dose ICU Ativan treatment as needed I will start him on Librium as well We will order liquid diet while he is sedated, advance this to solid foods as t olerated (2) Viral respiratory infection Conclusion/Plan: His PCR respiratory panel is positive for both enterovirus and rhinovirus. This possibly could be a cause of his hypoxia however no infiltrates are seen on chest x-ray Plan: We will give supplemental O2 keeping saturations greater than 92% We will order prn bronchodilator treatments via nebs We will order Mucinex for pulmonary toilet (3) Alcoholism Conclusion/Plan: Patient has known alcohol abuse. In 2021 he was diagnosed with Warnicke's encephalopathy, and was deemed unable to make his own decisions. He is not awake enough currently to give details of what his current alcohol intake is and amounts of alcohol he drinks. On labs he has elevated INR, elevated transaminases, low platelet count consistent with his alcohol abuse and cirrhosis history Plan: I will order IV fluids and give daily thiamine either p.o. or IV, vitamin daily When he is medically clear will request a social work consult for their recommendations or to give him resources for stopping alcohol abuse We will follow his LFTs intermittently We will order ICU electrolyte protocol to correct his abnormal electrolytes (4) Tarry stool Conclusion/Plan: After presenting to the ICU, the patient had a large tarry stool. He has a poor historian so we cannot tell if this has been a recurring issue Plan: Will order Pepcid p.o. twice daily for stress ulcer prophylaxis We will check guaiac of stool. If he is heme positive then we will request a general surgery consult for poss EGD. We will check hemoglobin this evening (5) Tobacco use Conclusion/Plan: He told his RN that he has smoked half pack a day since the age of 19 Plan: We will order nicotine patch (6) Homeless single person Conclusion/Plan: Plan: I will ask for social work consult to obtain details about why he is again homeless since he needed a guardian a yr ago, and had been discharged to live with his sister - Lab Results Fish Bones: 05/23/23 18:05 05/22/23 20:14 - Diagnostic Imaging Results Diagnostic Imaging Results: positive: Final report reviewed - Other Other Results/Comments: Attestation: The patient is expected to be hospitalized for greater than 2 midnights and is expected to be discharged or transferred to another facility within 96 hours: Yes
[2023-05-23] MEDS ORDERED: MIN OIL/DIMETHICON/COCONUT OIL 92 GM TUBE TOP PRN (12:08)
[2023-05-23] MEDS: DEXTROSE 5%-0.9% NACL 1,000 ML IV SCH ×2 (12:19→22:26)
--- NOTE | 2023-05-23 12:54 | PHARMACY PROGRESS NOTE ---
- Best Possible Medication History Admit Date and Time: 05/23/23 1132 Processed by: Nursing As the person ultimately responsible for medication therapy, providers are able to order a medication from an existing home medication list in [facility] via the "Reconcile Routine" prior to Confirmation of that medication by sales support administrator. Such practice is discouraged except when the physician, in their clinical judgment, deems that a medical need exists for a medication without regard to previous use.
[2023-05-23] MEDS: ZINC OXIDE 20% OINT 30 GM TUBE TOP PRN ×2 (13:26→15:42)
[2023-05-23] MEDS: LORazepam 2 MG/ML VIAL IVP PRN (14:39)
[2023-05-23] MEDS: NICOTINE 14 MG PATCH TOP SCH (15:23)
[2023-05-23 15:45] LABS: MUDS CUTOFF CONCENTRATIONS CUTOFF CONC BELOW:
[2023-05-23 15:49] LABS: GLUCOSE, URINE (UA) NEGATIVE (NEGATIVE); KETONES,URINE (UA) 15 mg/dL (NEGATIVE); LEUKOCYTE ESTERASE, URINE NEGATIVE (NEGATIVE); NITRITE,URINE NEGATIVE (NEGATIVE); OCCULT BLOOD,URINE SMALL (NEGATIVE); PH,URINE 6.5 PH (5.0-7.5); PROTEIN,URINE 100 mg/dL (NEGATIVE); UROBILINOGEN,URINE 2 E.U./dL (NORMAL)
[2023-05-23 15:54] LABS: BILIRUBIN,URINE SMALL (NEGATIVE); CLARITY,URINE CLEAR (CLEAR); ICTOTEST,URINE POSITIVE
[2023-05-23 16:02] LABS: AMPHETAMINE SCREEN,URINE NEGATIVE (NEGATIVE); BARBITURATE SCREEN,UR POSITIVE (NEGATIVE); BENZODIAZEPINES SCREEN, URINE POSITIVE (NEGATIVE); COCAINE SCREEN URINE NEGATIVE (NEGATIVE); METHADONE SCREEN, URINE NEGATIVE (NEGATIVE); METHAMPHETAMINES SCREEN, URINE NEGATIVE (NEGATIVE); OPIATE SCREEN, URINE NEGATIVE (NEGATIVE); OXYCODONE SCREEN, URINE NEGATIVE (NEGATIVE); PROPOXYPHENE SCREEN, URINE NEGATIVE (NEGATIVE); THC CANNABINOID SCREEN, URINE POSITIVE (NEGATIVE); TRICYCLIC ANTIDEPRESSANT,URINE NEGATIVE (NEGATIVE)
[2023-05-23 16:06] LABS: BACTERIA,URINE Rare /HPF (None Seen); RBC,URINE 0-5 /HPF (0-5); SQUAMOUS EPITHELIAL CELL,UR NONE SEEN (<= Few); WBC,URINE 0-3 /HPF (0-3)
[2023-05-23] MEDS: chlordiazePOXIDE 5 MG CAPSULE PO SCH (17:01)
[2023-05-23] MEDS: SODIUM CHLORIDE FLUSH 0.9% 10 ML SYRINGE IVP SCH (17:09)
[2023-05-23] MEDS: FAMOTIDINE 20 MG TABLET PO SCH (21:16)
[2023-05-23] MEDS: guaiFENesin 600 MG TABLET PO SCH (21:16)
[2023-05-24] MEDS: chlordiazePOXIDE 5 MG CAPSULE PO SCH ×5 (00:51→23:17)
[2023-05-24] MEDS: SODIUM CHLORIDE FLUSH 0.9% 10 ML SYRINGE IVP SCH ×4 (00:51→23:18)
[2023-05-24 05:57] LABS: BASOPHILS % (AUTO) 0.8 %; EOSINOPHILS % (AUTO) 0.5 %; HCT - HEMATOCRIT 34.2 % (42.0-52.0); HGB - HEMOGLOBIN 12.1 g/dL (14.0-18.0); LYMPHOCYTES # (AUTO) 0.6 10^3/uL (1.5-3.5); LYMPHOCYTES % (AUTO) 14.9 %; MEAN CORPUSCULAR HEMOGLOBIN 30.6 pg (27.0-31.0); MEAN CORPUSCULAR HGB CONC 35.4 g/dL (32.0-36.0); MEAN CORPUSCULAR VOLUME 86.6 fL (80.0-94.0); MONOCYTES # (AUTO) 0.3 10^3/uL (0.0-1.0); MONOCYTES % (AUTO) 7.2 %; NEUTROPHILS # (AUTO) 2.9 10^3/uL (1.5-6.6); NEUTROPHILS % (AUTO) 75.8 %; PLT - PLATELET COUNT 39 10^3/uL (130-450); RED BLOOD COUNT 3.95 10^6/uL (4.70-6.10); WHITE BLOOD COUNT 3.8 x10^3/uL (4.8-10.8)
[2023-05-24 06:02] LABS: INR 1.2 (0.8-1.2)
[2023-05-24 06:15] LABS: ALBUMIN 2.9 g/dL (3.2-5.5); ALBUMIN/GLOBULIN RATIO 1.1 (1.0-2.2); BILIRUBIN,TOTAL 1.3 mg/dL (0.2-1.0); CALCIUM 8.1 mg/dL (8.5-10.3); CREATININE 0.4 mg/dL (0.6-1.2); MAGNESIUM 1.5 mg/dL (1.7-2.8); PHOSPHORUS 1.9 mg/dL (2.5-4.6); POTASSIUM 3.1 mmol/L (3.5-5.0); TOTAL PROTEIN 5.6 g/dL (6.7-8.2)
[2023-05-24] MEDS: THIAMINE 100 MG TABLET PO SCH (08:19)
[2023-05-24] MEDS: PRENATAL VITAMIN TABLET PO SCH (08:19)
[2023-05-24] MEDS: NICOTINE 14 MG PATCH TOP SCH (08:19)
[2023-05-24] MEDS: DEXTROSE 5%-0.9% NACL 1,000 ML IV SCH ×3 (08:20→23:28)
[2023-05-24] MEDS: guaiFENesin 600 MG TABLET PO SCH ×2 (08:20→20:08)
[2023-05-24] MEDS: FAMOTIDINE 20 MG TABLET PO SCH (08:20)
[2023-05-24] MEDS ORDERED: MAGNESIUM OXIDE 400 MG TABLET PO ONE (08:24)
[2023-05-24] MEDS ORDERED: SODIUM PHOSPHATE 15 MMOL in SODIUM CHLORIDE 0.9% 250 ML IV ONE (08:24)
[2023-05-24] MEDS ORDERED: MAGNESIUM SULFATE 2 GRAM 2 GM/50 ML BAG IV ONE (08:40)
[2023-05-24] MEDS ORDERED: POTASSIUM CHLORIDE 20 MEQ TABLET PO SCH (09:00)
[2023-05-24] MEDS ORDERED: POTASSIUM PHOSPHATE 15 MMOL in SODIUM CHLORIDE 0.9% 250 ML IV ONE (09:00)
[2023-05-24] MEDS ORDERED: HYDROmorphone 0.5 MG/0.5 ML SYRINGE IVP STA (09:12)
--- NOTE | 2023-05-24 09:18 | PROVIDER PROGRESS NOTE ---
Subjective - Subjective Pt reports feeling: No change (CIWA scores are 12-16. He is currently napping but opens his eyes, answers with 1-2 word sentences) Objective - Vital Signs/Intake & Output Intake & Output: Intake & Output 05/21/23 05/22/23 05/23/23 05/24/23 23:59 23:59 23:59 23:59 Intake Total 1015.2 3006.2 990 Output Total 1425 1850 Balance 1015.2 1581.2 -860 - Objective General Appearance: positive: No acute distress, Lethargic Eyes Bilateral: positive: Normal inspection, EOMI ENT: positive: No signs of dehydration, Other (Bruise over his left eye and bridge of nose on the left side) Neck: positive: Nml inspection, No JVD Respiratory: positive: No respiratory distress Cardiovascular: positive: Regular rate & rhythm, No murmur Abdomen: positive: Non-tender, Nml bowel sounds, No distention Skin: positive: Warm, Dry Extremities: positive: Non-tender, No pedal edema, Other (Poorly kempt) Neurologic/Psychiatric: positive: Other (Resting tremor of his hands, no nystagmus, minimally communicative but this is partly from getting Ativan and Librium) - Lab Results Fish Bones: 05/25/23 05:35 05/25/23 12:00 Other Labs: Lab Results x24hrs 05/24/23 05/24/23 05/24/23 Range/Units 04:16 04:16 04:16 WBC (4.8-10.8) x10^3/uL RBC (4.70-6.10) 10^6/uL Hgb (14.0-18.0) g/dL Hct (42.0-52.0) % MCV (80.0-94.0) fL MCH (27.0-31.0) pg MCHC (32.0-36.0) g/dL RDW (12.0-15.0) % Plt Count (130-450) 10^3/uL MPV Neut # (Auto) (1.5-6.6) 10^3/uL Lymph # (Auto) (1.5-3.5) 10^3/uL [place] # (Auto) (0.0-1.0) 10^3/uL Eos # (Auto) (0.0-0.7) 10^3/uL Baso # (Auto) (0.0-0.1) 10^3/uL Absolute Nucleated RBC x10^3/uL Nucleated RBC % /100WBC PT 13.0 H (9.9-12.6) secs INR 1.2 (0.8-1.2) Sodium 133 L (135-145) mmol/L Potassium 3.1 L (3.5-5.0) mmol/L Chloride 98 L (101-111) mmol/L Carbon Dioxide 27 (21-32) mmol/L Anion Gap 8.0 (6-13) BUN 8 (6-20) mg/dL Creatinine 0.4 L (0.6-1.2) mg/dL Estimated GFR (MDRD) 217 (>89) Glucose 107 H (70-100) mg/dL Calcium 8.1 L (8.5-10.3) mg/dL Phosphorus 1.9 L (2.5-4.6) mg/dL Magnesium 1.5 L (1.7-2.8) mg/dL Total Bilirubin 1.3 H (0.2-1.0) mg/dL AST 394 H (10-42) IU/L ALT 124 H (10-60) IU/L Alkaline Phosphatase 126 H (42-121) IU/L Ammonia 59.3 H (7-35) umol/L Total Protein 5.6 L (6.7-8.2) g/dL Albumin 2.9 L (3.2-5.5) g/dL Globulin 2.7 (2.1-4.2) g/dL Albumin/Globulin Ratio 1.1 (1.0-2.2) Urine Color Urine Clarity (CLEAR) Urine pH (5.0-7.5) PH Ur Specific [place] (1.002-1.030) Urine Protein (NEGATIVE) mg/dL Urine Glucose (UA) (NEGATIVE) mg/dL Urine Ketones (NEGATIVE) mg/dL Urine Occult Blood (NEGATIVE) Urine Nitrite (NEGATIVE) Urine Bilirubin (NEGATIVE) Urine Urobilinogen (NORMAL) E.U./dL Ur Leukocyte Esterase (NEGATIVE) Urine RBC (0-5) /HPF Urine WBC (0-3) /HPF Ur Squamous Epith Cells (<= Few) Urine Bacteria (None Seen) /HPF Ur Microscopic Review Urine Culture Comments Nasal Screen MRSA (PCR) (NEGATIVE) Urine Opiates Screen (NEGATIVE) Ur Oxycodone Screen (NEGATIVE) Urine Methadone Screen (NEGATIVE) Ur Propoxyphene Screen (NEGATIVE) Ur Barbiturates Screen (NEGATIVE) Ur Tricyclics Screen (NEGATIVE) Ur Phencyclidine Scrn (NEGATIVE) Ur Amphetamine Screen (NEGATIVE) U Methamphetamines Scrn (NEGATIVE) U Benzodiazepines Scrn (NEGATIVE) Urine Cocaine Screen (NEGATIVE) U Cannabinoids Screen (NEGATIVE) 05/24/23 05/23/23 05/23/23 Range/Units 04:16 18:05 15:26 WBC 3.8 L (4.8-10.8) x10^3/uL RBC 3.95 L (4.70-6.10) 10^6/uL Hgb 12.1 L 11.4 L (14.0-18.0) g/dL Hct 34.2 L (42.0-52.0) % MCV 86.6 (80.0-94.0) fL MCH 30.6 (27.0-31.0) pg MCHC 35.4 (32.0-36.0) g/dL RDW 16.0 H (12.0-15.0) % Plt Count 39 L (130-450) 10^3/uL MPV TNP Neut # (Auto) 2.9 (1.5-6.6) 10^3/uL Lymph # (Auto) 0.6 L (1.5-3.5) 10^3/uL [place] # (Auto) 0.3 (0.0-1.0) 10^3/uL Eos # (Auto) 0.0 (0.0-0.7) 10^3/uL Baso # (Auto) 0.0 (0.0-0.1) 10^3/uL Absolute Nucleated RBC 0.00 x10^3/uL Nucleated RBC % 0.0 /100WBC PT (9.9-12.6) secs INR (0.8-1.2) Sodium (135-145) mmol/L Potassium (3.5-5.0) mmol/L Chloride (101-111) mmol/L Carbon Dioxide (21-32) mmol/L Anion Gap (6-13) BUN (6-20) mg/dL Creatinine (0.6-1.2) mg/dL Estimated GFR (MDRD) (>89) Glucose (70-100) mg/dL Calcium (8.5-10.3) mg/dL Phosphorus (2.5-4.6) mg/dL Magnesium (1.7-2.8) mg/dL Total Bilirubin (0.2-1.0) mg/dL AST (10-42) IU/L ALT (10-60) IU/L Alkaline Phosphatase (42-121) IU/L Ammonia (7-35) umol/L Total Protein (6.7-8.2) g/dL Albumin (3.2-5.5) g/dL Globulin (2.1-4.2) g/dL Albumin/Globulin Ratio (1.0-2.2) Urine Color DARK YELLOW Urine Clarity CLEAR (CLEAR) Urine pH 6.5 (5.0-7.5) PH Ur Specific [place] 1.025 (1.002-1.030) Urine Protein 100 H (NEGATIVE) mg/dL Urine Glucose (UA) NEGATIVE (NEGATIVE) mg/dL Urine Ketones 15 H (NEGATIVE) mg/dL Urine Occult Blood SMALL H (NEGATIVE) Urine Nitrite NEGATIVE (NEGATIVE) Urine Bilirubin SMALL H (NEGATIVE) Urine Urobilinogen 2 H (NORMAL) E.U./dL Ur Leukocyte Esterase NEGATIVE (NEGATIVE) Urine RBC 0-5 (0-5) /HPF Urine WBC 0-3 (0-3) /HPF Ur Squamous Epith Cells NONE SEEN (<= Few) Urine Bacteria Rare (None Seen) /HPF Ur Microscopic Review INDICATED Urine Culture Comments NOT INDICATED Nasal Screen MRSA (PCR) (NEGATIVE) Urine Opiates Screen NEGATIVE (NEGATIVE) Ur Oxycodone Screen NEGATIVE (NEGATIVE) Urine Methadone Screen NEGATIVE (NEGATIVE) Ur Propoxyphene Screen NEGATIVE (NEGATIVE) Ur Barbiturates Screen POSITIVE H (NEGATIVE) Ur Tricyclics Screen NEGATIVE (NEGATIVE) Ur Phencyclidine Scrn NEGATIVE (NEGATIVE) Ur Amphetamine Screen NEGATIVE (NEGATIVE) U Methamphetamines Scrn NEGATIVE (NEGATIVE) U Benzodiazepines Scrn POSITIVE H (NEGATIVE) Urine Cocaine Screen NEGATIVE (NEGATIVE) U Cannabinoids Screen POSITIVE H (NEGATIVE) 05/23/23 Range/Units 12:10 WBC (4.8-10.8) x10^3/uL RBC (4.70-6.10) 10^6/uL Hgb (14.0-18.0) g/dL Hct (42.0-52.0) % MCV (80.0-94.0) fL MCH (27.0-31.0) pg MCHC (32.0-36.0) g/dL RDW (12.0-15.0) % Plt Count (130-450) 10^3/uL MPV Neut # (Auto) (1.5-6.6) 10^3/uL Lymph # (Auto) (1.5-3.5) 10^3/uL [place] # (Auto) (0.0-1.0) 10^3/uL Eos # (Auto) (0.0-0.7) 10^3/uL Baso # (Auto) (0.0-0.1) 10^3/uL Absolute Nucleated RBC x10^3/uL Nucleated RBC % /100WBC PT (9.9-12.6) secs INR (0.8-1.2) Sodium (135-145) mmol/L Potassium (3.5-5.0) mmol/L Chloride (101-111) mmol/L Carbon Dioxide (21-32) mmol/L Anion Gap (6-13) BUN (6-20) mg/dL Creatinine (0.6-1.2) mg/dL Estimated GFR (MDRD) (>89) Glucose (70-100) mg/dL Calcium (8.5-10.3) mg/dL Phosphorus (2.5-4.6) mg/dL Magnesium (1.7-2.8) mg/dL Total Bilirubin (0.2-1.0) mg/dL AST (10-42) IU/L ALT (10-60) IU/L Alkaline Phosphatase (42-121) IU/L Ammonia (7-35) umol/L Total Protein (6.7-8.2) g/dL Albumin (3.2-5.5) g/dL Globulin (2.1-4.2) g/dL Albumin/Globulin Ratio (1.0-2.2) Urine Color Urine Clarity (CLEAR) Urine pH (5.0-7.5) PH Ur Specific [place] (1.002-1.030) Urine Protein (NEGATIVE) mg/dL Urine Glucose (UA) (NEGATIVE) mg/dL Urine Ketones (NEGATIVE) mg/dL Urine Occult Blood (NEGATIVE) Urine Nitrite (NEGATIVE) Urine Bilirubin (NEGATIVE) Urine Urobilinogen (NORMAL) E.U./dL Ur Leukocyte Esterase (NEGATIVE) Urine RBC (0-5) /HPF Urine WBC (0-3) /HPF Ur Squamous Epith Cells (<= Few) Urine Bacteria (None Seen) /HPF Ur Microscopic Review Urine Culture Comments Nasal Screen MRSA (PCR) NEGATIVE (NEGATIVE) Urine Opiates Screen (NEGATIVE) Ur Oxycodone Screen (NEGATIVE) Urine Methadone Screen (NEGATIVE) Ur Propoxyphene Screen (NEGATIVE) Ur Barbiturates Screen (NEGATIVE) Ur Tricyclics Screen (NEGATIVE) Ur Phencyclidine Scrn (NEGATIVE) Ur Amphetamine Screen (NEGATIVE) U Methamphetamines Scrn (NEGATIVE) U Benzodiazepines Scrn (NEGATIVE) Urine Cocaine Screen (NEGATIVE) U Cannabinoids Screen (NEGATIVE) Assessment/Plan - Problem List (1) Alcohol withdrawal delirium Impression: This patient is a known alcoholic with history of liver cirrhosis. He presented confused, brought in by ambulance. He was going through active alcohol withdrawal, his CIWA was 21 yesterday. He was admitted to the ICU. As needed Ativan high-dose ICU protocol, on the CIWA protocol was ordered. Also Librium orally 10 mg 4 times daily was started yesterday evening Plan: Remain in the ICU Cont CIWA protocol with high-dose ICU Ativan treatment as needed Cont scheduled Librium (2) Headache This patient had a ground-level fall before admission. He had a head CT in the ER which was negative for trauma. He does have a large bruise over his left eye and on the left side of his upper nose. Today he reports a severe headache, left-sided, where he hit his head, he says. Labs were all reviewed. Yesterday he presented with a platelet count of 57, today his platelet count is 39. This makes me concerned for brain hemorrhage given this new symptom Plan: Stat head CT We will give platelets and FFP if there is evidence of blood (3) Tarry stool Conclusion/Plan: After presenting to the ICU, the patient had a large tarry stool. He is a poor historian so we cannot tell if this has been a recurring issue Plan: I ordered checking a guaiac of his stool. If he is heme positive then we will request a general surgery consult for poss EGD. I will change his Pepcid p.o. to Protonix po twice daily for treating a poss ulcer If his daily hemoglobin is dropping, will follow hemoglobin twice daily. Would transfuse if hemoglobin drops under 7, or under 8 if he is actively bleed. Follow his platelet count daily, transfuse if low. Avoid any aspirin or NSAID products (4) Alcoholism Conclusion/Plan: Patient has known alcohol abuse. In 2021 he was diagnosed with Wernicke's encephalopathy, and was deemed unable to make his own decisions. At admission he could not give details of what his current alcohol intake is and amounts of alcohol he drinks. He did say he prefers whiskey. On labs he has elevated transaminases and low platelet count, consistent with his alcohol abuse and cirrhosis history. Labs were all reviewed. He has a low calcium, magnesium and phosphorus level consistent with poor nutrition Plan: Cont gentle IV fluids and give daily thiamine either p.o. or IV, vitamin daily When he is medically clear will request a social work consult for their recommendations or to give him resources for stopping alcohol abuse Follow his LFTs daily Cont ICU electrolyte protocol to correct his abnormal electrolytes Avoid Tylenol or other hepatotoxins (5) Viral respiratory infection Conclusion/Plan: His PCR respiratory panel is positive for both enterovirus and rhinovirus. This possibly could be a cause of his hypoxia however no infiltrates are seen on chest x-ray Plan: If needed, give supplemental O2 keeping saturations greater than 92% Cont prn bronchodilator treatments via nebs Cont BID Mucinex po, for pulmonary toilet (6) Tobacco use Conclusion/Plan: He told his RN that he has smoked half pack a day since the age of 19 Plan: Cont nicotine patch (7) Homeless single person Conclusion/Plan: At admission I asked him how it was that he is again on [facility], living alone and not with his sister in [place]. He gave me no details. He said he got here sometime ago Plan: I will ask for social work consult to obtain details from family members about why he is again homeless, since he needed a guardian a yr ago, and had been discharged to live with his sister in [place].
[2023-05-24] MEDS: LORazepam 2 MG/ML VIAL IVP PRN ×5 (09:55→23:19)
--- NOTE | 2023-05-24 10:44 | CT Report ---
PROCEDURE: HEAD WO INDICATIONS: New severe L-sided headache,after GLF sev days ago TECHNIQUE: Noncontrast 4.5 mm thick angled axial sections acquired from the foramen magnum to the vertex. For r adiation dose reduction, the following was used: automated exposure control, adjustment of mA and/or kV according to patient size. COMPARISON: None. FINDINGS: Image quality: Excellent. CSF spaces: Basal cisterns are patent. No extra-axial fluid collections. Ventricles are normal in size and shape. Brain: No midline shift. No intracranial masses or hemorrhage. Daniels-white matter interface is norm al. Leukoaraiosis, commonly caused by chronic small vessel ischemic disease. Age-related volume loss . Skull and face: Calvarium and visualized facial bones are intact, without suspicious lesions. Sinuses: Visualized sinuses and mastoids are clear. IMPRESSION: No acute intracranial pathology Reviewed by: Yaron Nava on 05/24/2023 10:43 AM PDT Approved by: Yaron Nava on 05/24/2023 10:43 AM PDT Station ID: [id number]
[2023-05-24] MEDS: POTASSIUM CHLOR 10 MEQ/100 ML 10 MEQ/100 ML BAG IV SCH ×7 (12:26→23:48)
[2023-05-24 16:59] LABS: MAGNESIUM 1.9 mg/dL (1.7-2.8); PHOSPHORUS 3.1 mg/dL (2.5-4.6); POTASSIUM 3.5 mmol/L (3.5-5.0)
[2023-05-24] MEDS: PANTOPRAZOLE 40 MG TABLET PO SCH (20:08)
[2023-05-24 23:19] LABS: CALCIUM, IONIZED 0.99 mmol/L (1.15-1.33); VBG PH 7.58 (7.31-7.41)
[2023-05-24] MEDS ORDERED: CALCIUM GLUCONATE IN NS 0.9% 2,000 MG/100 ML BAG IV ONE (23:34)
[2023-05-25] MEDS: POTASSIUM CHLOR 10 MEQ/100 ML 10 MEQ/100 ML BAG IV SCH ×3 (00:53→07:58)
[2023-05-25] MEDS: IPRATROPIUM/ALBUTEROL 3 ML NEB INH PRN (05:40)
[2023-05-25 05:45] LABS: HCT - HEMATOCRIT 38.1 % (42.0-52.0); HGB - HEMOGLOBIN 13.1 g/dL (14.0-18.0); MEAN CORPUSCULAR HEMOGLOBIN 30.3 pg (27.0-31.0); MEAN CORPUSCULAR HGB CONC 34.4 g/dL (32.0-36.0); PLT - PLATELET COUNT 48 10^3/uL (130-450); RED BLOOD COUNT 4.33 10^6/uL (4.70-6.10); RED CELL DISTRIBUTION WIDTH 15.8 % (12.0-15.0); WHITE BLOOD COUNT 3.9 x10^3/uL (4.8-10.8)
[2023-05-25 05:50] LABS: CALCIUM, IONIZED 1.09 mmol/L (1.15-1.33); VBG PH 7.462 (7.31-7.41)
[2023-05-25] MEDS ORDERED: CALCIUM GLUC 1,000MG/50ML-NACL 1,000 MG/50 ML BAG IV ONE (05:56)
[2023-05-25 05:57] LABS: ALBUMIN 3.1 g/dL (3.2-5.5); ALBUMIN/GLOBULIN RATIO 1.1 (1.0-2.2); CALCIUM 8.5 mg/dL (8.5-10.3); CREATININE 0.5 mg/dL (0.6-1.2); MAGNESIUM 1.6 mg/dL (1.7-2.8); PHOSPHORUS 3.4 mg/dL (2.5-4.6); POTASSIUM 3.6 mmol/L (3.5-5.0)
[2023-05-25] MEDS ORDERED: MAGNESIUM SULFATE 2 GRAM 2 GM/50 ML BAG IV ONE (06:12)
[2023-05-25] MEDS: chlordiazePOXIDE 5 MG CAPSULE PO SCH ×4 (06:33→23:03)
[2023-05-25] MEDS: guaiFENesin 600 MG TABLET PO SCH ×2 (08:00→20:01)
[2023-05-25] MEDS: PRENATAL VITAMIN TABLET PO SCH (08:00)
[2023-05-25] MEDS: SODIUM CHLORIDE FLUSH 0.9% 10 ML SYRINGE IVP SCH ×3 (08:00→23:03)
[2023-05-25] MEDS: PANTOPRAZOLE 40 MG TABLET PO SCH ×2 (08:00→20:01)
[2023-05-25] MEDS: NICOTINE 14 MG PATCH TOP SCH (08:00)
[2023-05-25] MEDS: THIAMINE 100 MG TABLET PO SCH (08:00)
[2023-05-25] MEDS: ZINC OXIDE 20% OINT 30 GM TUBE TOP PRN (08:23)
[2023-05-25] MEDS ORDERED: DEXTROSE 5%-0.9% NACL 1,000 ML IV SCH (08:25)
[2023-05-25] MEDS: LORazepam 2 MG/ML VIAL IVP PRN ×7 (10:48→23:50)
[2023-05-25 12:09] LABS: CALCIUM, IONIZED 1.12 mmol/L (1.15-1.33); VBG PH 7.424 (7.31-7.41)
--- NOTE | 2023-05-25 13:36 | PROVIDER PROGRESS NOTE ---
Subjective - Subjective Pt reports feeling: No change (RN reports his CIWA score is 7 up to 16. He is mostly sleeping all day due to getting IV Ativan and p.o. Librium) Objective - Vital Signs/Intake & Output Reviewed Vital Signs: Yes Vital Signs: Vital Signs Temp Pulse Resp BP Pulse Ox 05/25/23 12:00 87 30 H 122/92 H 96 05/25/23 11:00 92 26 H 93/79 94 05/25/23 10:00 36.6 C 96 28 H 112/88 H 94 Intake & Output: Intake & Output 05/22/23 05/23/23 05/24/23 05/25/23 23:59 23:59 23:59 23:59 Intake Total 1015.2 3006.2 3394 2005 Output Total 1425 4115 1590 Balance 1015.2 1581.2 -721 416 - Objective General Appearance: positive: Lethargic Eyes Bilateral: positive: Normal inspection ENT: positive: No signs of dehydration, Other (Unchanged bruise over the left eye and left side of the bridge of his nose) Neck: positive: Nml inspection, No JVD Respiratory: positive: No respiratory distress Cardiovascular: positive: Regular rate & rhythm Abdomen: positive: Non-tender, Nml bowel sounds, No distention Skin: positive: Warm, Dry Extremities: positive: Non-tender, No pedal edema, Other (Poorly kempt) Neurologic/Psychiatric: positive: Other (Lethargic) - Lab Results Fish Bones: 05/25/23 05:35 05/25/23 12:00 Other Labs: Lab Results x24hrs 05/25/23 05/25/23 05/25/23 Range/Units 12:00 12:00 12:00 WBC (4.8-10.8) x10^3/uL RBC (4.70-6.10) 10^6/uL Hgb (14.0-18.0) g/dL Hct (42.0-52.0) % MCV (80.0-94.0) fL MCH (27.0-31.0) pg MCHC (32.0-36.0) g/dL RDW (12.0-15.0) % Plt Count (130-450) 10^3/uL MPV VBG pH 7.424 H (7.31-7.41) Ionized Calcium 1.12 L (1.15-1.33) mmol/L Sodium (135-145) mmol/L Potassium 4.1 (3.5-5.0) mmol/L Chloride (101-111) mmol/L Carbon Dioxide (21-32) mmol/L Anion Gap (6-13) BUN (6-20) mg/dL Creatinine (0.6-1.2) mg/dL Estimated GFR (MDRD) (>89) Glucose (70-100) mg/dL Calcium (8.5-10.3) mg/dL Phosphorus (2.5-4.6) mg/dL Magnesium 2.0 (1.7-2.8) mg/dL Total Bilirubin (0.2-1.0) mg/dL AST (10-42) IU/L ALT (10-60) IU/L Alkaline Phosphatase (42-121) IU/L Ammonia (7-35) umol/L Total Protein (6.7-8.2) g/dL Albumin (3.2-5.5) g/dL Globulin (2.1-4.2) g/dL Albumin/Globulin Ratio (1.0-2.2) 05/25/23 05/25/23 05/25/23 Range/Units 05:35 05:35 05:35 WBC 3.9 L (4.8-10.8) x10^3/uL RBC 4.33 L (4.70-6.10) 10^6/uL Hgb 13.1 L (14.0-18.0) g/dL Hct 38.1 L (42.0-52.0) % MCV 88.0 (80.0-94.0) fL MCH 30.3 (27.0-31.0) pg MCHC 34.4 (32.0-36.0) g/dL RDW 15.8 H (12.0-15.0) % Plt Count 48 L (130-450) 10^3/uL MPV TNP VBG pH 7.462 H (7.31-7.41) Ionized Calcium 1.09 L (1.15-1.33) mmol/L Sodium (135-145) mmol/L Potassium (3.5-5.0) mmol/L Chloride (101-111) mmol/L Carbon Dioxide (21-32) mmol/L Anion Gap (6-13) BUN (6-20) mg/dL Creatinine (0.6-1.2) mg/dL Estimated GFR (MDRD) (>89) Glucose (70-100) mg/dL Calcium (8.5-10.3) mg/dL Phosphorus (2.5-4.6) mg/dL Magnesium (1.7-2.8) mg/dL Total Bilirubin (0.2-1.0) mg/dL AST (10-42) IU/L ALT (10-60) IU/L Alkaline Phosphatase (42-121) IU/L Ammonia 42.2 H (7-35) umol/L Total Protein (6.7-8.2) g/dL Albumin (3.2-5.5) g/dL Globulin (2.1-4.2) g/dL Albumin/Globulin Ratio (1.0-2.2) 05/25/23 05/24/23 05/24/23 Range/Units 05:35 23:15 23:15 WBC (4.8-10.8) x10^3/uL RBC (4.70-6.10) 10^6/uL Hgb (14.0-18.0) g/dL Hct (42.0-52.0) % MCV (80.0-94.0) fL MCH (27.0-31.0) pg MCHC (32.0-36.0) g/dL RDW (12.0-15.0) % Plt Count (130-450) 10^3/uL MPV VBG pH 7.580 H (7.31-7.41) Ionized Calcium 0.99 L (1.15-1.33) mmol/L Sodium 132 L (135-145) mmol/L Potassium 3.6 3.9 (3.5-5.0) mmol/L Chloride 99 L (101-111) mmol/L Carbon Dioxide 25 (21-32) mmol/L Anion Gap 8.0 (6-13) BUN 7 (6-20) mg/dL Creatinine 0.5 L (0.6-1.2) mg/dL Estimated GFR (MDRD) 167 (>89) Glucose 122 H (70-100) mg/dL Calcium 8.5 (8.5-10.3) mg/dL Phosphorus 3.4 (2.5-4.6) mg/dL Magnesium 1.6 L (1.7-2.8) mg/dL Total Bilirubin 1.0 (0.2-1.0) mg/dL AST 241 H (10-42) IU/L ALT 120 H (10-60) IU/L Alkaline Phosphatase 138 H (42-121) IU/L Ammonia (7-35) umol/L Total Protein 6.0 L (6.7-8.2) g/dL Albumin 3.1 L (3.2-5.5) g/dL Globulin 2.9 (2.1-4.2) g/dL Albumin/Globulin Ratio 1.1 (1.0-2.2) // Range/Units 16:20 WBC (4.8-10.8) x10^3/uL RBC (4.70-6.10) 10^6/uL Hgb (14.0-18.0) g/dL Hct (42.0-52.0) % MCV (80.0-94.0) fL MCH (27.0-31.0) pg MCHC (32.0-36.0) g/dL RDW (12.0-15.0) % Plt Count (130-450) 10^3/uL MPV VBG pH (7.31-7.41) Ionized Calcium (1.15-1.33) mmol/L Sodium (135-145) mmol/L Potassium 3.5 (3.5-5.0) mmol/L Chloride (101-111) mmol/L Carbon Dioxide (21-32) mmol/L Anion Gap (6-13) BUN (6-20) mg/dL Creatinine (0.6-1.2) mg/dL Estimated GFR (MDRD) (>89) Glucose (70-100) mg/dL Calcium (8.5-10.3) mg/dL Phosphorus 3.1 (2.5-4.6) mg/dL Magnesium 1.9 (1.7-2.8) mg/dL Total Bilirubin (0.2-1.0) mg/dL AST (10-42) IU/L ALT (10-60) IU/L Alkaline Phosphatase (42-121) IU/L Ammonia (7-35) umol/L Total Protein (6.7-8.2) g/dL Albumin (3.2-5.5) g/dL Globulin (2.1-4.2) g/dL Albumin/Globulin Ratio (1.0-2.2) Assessment/Plan - Problem List (1) Alcohol withdrawal delirium Impression: This patient is a known alcoholic with history of liver cirrhosis. He presented confused, brought in by ambulance. He was going through active alcohol withdrawal, his CIWA was 21, thus he was admitted to the ICU. CIWA score improved to 7 overnight, but his CIWA is 16 today. As needs Ativan high-dose ICU protocol, on the CIWA protocol Also Librium orally 10 mg 4 times daily was started Plan: Remain in the ICU Cont CIWA protocol with high-dose ICU Ativan treatment as needed Cont scheduled Librium He is too somnolent yet to start PT and OT. We will try to get him OOB to chair for meals. (2) Tarry stool Conclusion/Plan: After presenting to the ICU, the patient had a large tarry stool. He was a poor historian and now is getting sedatives, so we still do not know if he has had this before yesteray. I ordered a guaiac of his stool, which came back pos. I changed his Pepcid p.o. to Protonix po twice daily for treating a poss ulcer His Hgb has been Plan: If his daily hemoglobin starts dropping, will follow hemoglobin twice daily. W ould transfuse if hemoglobin drops under 7, or under 8 if he is actively bleed. If there is another tarry stool or if the hemoglobin drops, we will request a general surgery consult for EGD Follow his platelet count daily, transfuse if low. Avoid any aspirin or NSAID products (3) Alcoholism Conclusion/Plan: Patient has known alcohol abuse. In 2021 he was diagnosed with Wernicke's encephalopathy, and was deemed unable to make his own decisions. At admission he could not give details of what his current alcohol intake is and amounts of alcohol he drinks. He did say he prefers whiskey. On labs he has elevated transaminases and low platelet count, consistent with his alcohol abuse and cirrhosis history. Labs were all reviewed. He has a low calcium, magnesium and phosphorus level consistent with poor nutrition Plan: Con IV fluids, tapering down to off as he eats. Cont daily thiamine either p.o. or IV, and a vitamin daily When he is medically clear will request a social work consult for their recommendations or to give him resources for stopping alcohol abuse Follow his LFTs daily and Ammonia intermittently. Will ecide if he needs Lactul ose. Cont ICU electrolyte protocol to correct his abnormal electrolytes Avoid Tylenol or other hepatotoxins (4) Viral respiratory infection Conclusion/Plan: His PCR respiratory panel is positive for both enterovirus and rhinovirus. This possibly could be a cause of his hypoxia however no infiltrates are seen on chest x-ray Plan: If needed, give supplemental O2 keeping saturations greater than 92% Cont prn bronchodilator treatments via nebs Cont BID Mucinex po for pulmonary toilet (5) Tobacco use Conclusion/Plan: He told his RN that he has smoked half pack a day since the age of 19 Plan: Cont nicotine patch (6) Homeless single person Conclusion/Plan: At admission I asked him how it was that he is again on [facility], living alone and not with his sister in [place]. He gave me no details. He said he got here "sometime ago". Social work has been "playing phone tag" with his daughter Solitario. Plan: I requested social work consult to obtain details from family members about why he is again homeless, since he needed a guardian a yr ago, and had been discharged to live with his sister in [place]. (7) Headache Resolved This patient had a ground-level fall before admission. He had a head CT in the ER which was negative for trauma. He does have a large bruise over his left eye and on the left side of his upper nose. On 05/24 he reported a severe headache, left-sided, where he hit his head, he said. Labs were all reviewed. He presented with a platelet count of 57, on 05/24 his platelet count was 39. This made me concerned for brain hemorrhage given this new symptom A Stat head CT was done and showed no bleed, and no acute changes. Plan: Dilaudid x1 was ordered for the headache, in order to avoid Tylenol
[2023-05-26] MEDS: LORazepam 2 MG/ML VIAL IVP PRN ×7 (00:17→22:02)
[2023-05-26 04:44] LABS: CALCIUM, IONIZED 1.06 mmol/L (1.15-1.33); VBG PH 7.442 (7.31-7.41)
[2023-05-26 04:46] LABS: HCT - HEMATOCRIT 39.4 % (42.0-52.0); HGB - HEMOGLOBIN 13.4 g/dL (14.0-18.0); MEAN CORPUSCULAR VOLUME 88.3 fL (80.0-94.0); PLT - PLATELET COUNT 58 10^3/uL (130-450); RED BLOOD COUNT 4.46 10^6/uL (4.70-6.10); RED CELL DISTRIBUTION WIDTH 15.9 % (12.0-15.0); WHITE BLOOD COUNT 3.6 x10^3/uL (4.8-10.8)
[2023-05-26 05:02] LABS: ALBUMIN 3.2 g/dL (3.2-5.5); BILIRUBIN,TOTAL 1.2 mg/dL (0.2-1.0); CALCIUM 8.5 mg/dL (8.5-10.3); CREATININE 0.4 mg/dL (0.6-1.2); MAGNESIUM 1.8 mg/dL (1.7-2.8); POTASSIUM 3.3 mmol/L (3.5-5.0); TOTAL PROTEIN 6.4 g/dL (6.7-8.2)
[2023-05-26] MEDS ORDERED: CALCIUM GLUC 1,000MG/50ML-NACL 1,000 MG/50 ML BAG IV ONE ×2 (05:05→12:15)
[2023-05-26] MEDS ORDERED: MAGNESIUM SULFATE 2 GRAM 2 GM/50 ML BAG IV ONE ×2 (05:05→12:15)
[2023-05-26] MEDS: POTASSIUM CHLOR 10 MEQ/100 ML 10 MEQ/100 ML BAG IV SCH ×4 (05:32→08:57)
[2023-05-26] MEDS: chlordiazePOXIDE 5 MG CAPSULE PO SCH ×3 (06:34→21:14)
[2023-05-26] MEDS: IPRATROPIUM/ALBUTEROL 3 ML NEB INH PRN (06:38)
[2023-05-26] MEDS: MAGNESIUM OXIDE 400 MG TABLET PO SCH (07:46)
[2023-05-26] MEDS ORDERED: POTASSIUM CHLORIDE 10 MEQ CAPSULE PO SCH (08:00)
[2023-05-26] MEDS: PANTOPRAZOLE 40 MG TABLET PO SCH ×2 (08:35→21:14)
[2023-05-26] MEDS: guaiFENesin 600 MG TABLET PO SCH ×2 (08:35→21:14)
[2023-05-26] MEDS: NICOTINE 14 MG PATCH TOP SCH (08:35)
[2023-05-26] MEDS: SODIUM CHLORIDE FLUSH 0.9% 10 ML SYRINGE IVP SCH ×3 (08:36→21:14)
[2023-05-26] MEDS: THIAMINE 100 MG TABLET PO SCH (08:36)
[2023-05-26] MEDS: PRENATAL VITAMIN TABLET PO SCH (08:36)
[2023-05-26] MEDS: SODIUM CHLORIDE FLUSH 0.9% 10 ML SYRINGE IVP PRN ×3 (09:35→22:03)
[2023-05-26 11:52] LABS: MAGNESIUM 1.7 mg/dL (1.7-2.3); POTASSIUM 4.1 mmol/L (3.5-4.5)
[2023-05-26 11:58] LABS: CALCIUM, IONIZED 1.11 mmol/L (1.15-1.33); VBG PH 7.393 (7.31-7.41)
--- NOTE | 2023-05-26 15:51 | PROVIDER PROGRESS NOTE ---
Subjective - Subjective Pt reports feeling: No change (RN reports his CIWA score is up to 10 today. He is mostly sleeping all day due to getting IV Ativan and p.o. Librium) Objective - Vital Signs/Intake & Output Reviewed Vital Signs: Yes Vital Signs: Vital Signs Pulse Resp BP Pulse Ox O2 Flow Rate 05/26/23 13:00 95 21 126/79 93 1 Intake & Output: Intake & Output 05/23/23 05/24/23 05/25/23 05/26/23 23:59 23:59 23:59 23:59 Intake Total 3006.2 3394 2256 1065 Output Total 1425 4115 1953 405 Balance 1581.2 -721 303 660 - Objective General Appearance: positive: Lethargic Eyes Bilateral: positive: No lid inflammation ENT: positive: No signs of dehydration Neck: positive: No JVD Respiratory: positive: No respiratory distress Cardiovascular: positive: Regular rate & rhythm Abdomen: positive: No distention Skin: positive: Warm, Dry, Other (poorly kempt) Extremities: positive: No pedal edema Neurologic/Psychiatric: positive: Other (lethargic) - Lab Results Fish Bones: 05/26/23 04:29 05/26/23 11:10 Other Labs: Lab Results x24hrs 05/26/23 05/26/23 05/26/23 Range/Units 11:10 11:10 04:29 WBC (4.8-10.8) x10^3/uL RBC (4.70-6.10) 10^6/uL Hgb (14.0-18.0) g/dL Hct (42.0-52.0) % MCV (80.0-94.0) fL MCH (27.0-31.0) pg MCHC (32.0-36.0) g/dL RDW (12.0-15.0) % Plt Count (130-450) 10^3/uL MPV VBG pH 7.393 7.442 H (7.31-7.41) Ionized Calcium 1.11 L 1.06 L (1.15-1.33) mmol/L Sodium (135-145) mmol/L Potassium 4.1 (3.5-5.0) mmol/L Chloride (101-111) mmol/L Carbon Dioxide (21-32) mmol/L Anion Gap (6-13) BUN (6-20) mg/dL Creatinine (0.6-1.2) mg/dL Estimated GFR (MDRD) (>89) Glucose (70-100) mg/dL Calcium (8.5-10.3) mg/dL Phosphorus (2.5-4.6) mg/dL Magnesium 1.7 (1.7-2.8) mg/dL Total Bilirubin (0.2-1.0) mg/dL AST (10-42) IU/L ALT (10-60) IU/L Alkaline Phosphatase (42-121) IU/L Ammonia (7-35) umol/L Total Protein (6.7-8.2) g/dL Albumin (3.2-5.5) g/dL Globulin (2.1-4.2) g/dL Albumin/Globulin Ratio (1.0-2.2) 05/26/23 05/26/23 05/26/23 Range/Units 04:29 04:29 04:29 WBC 3.6 L (4.8-10.8) x10^3/uL RBC 4.46 L (4.70-6.10) 10^6/uL Hgb 13.4 L (14.0-18.0) g/dL Hct 39.4 L (42.0-52.0) % MCV 88.3 (80.0-94.0) fL MCH 30.0 (27.0-31.0) pg MCHC 34.0 (32.0-36.0) g/dL RDW 15.9 H (12.0-15.0) % Plt Count 58 L (130-450) 10^3/uL MPV TNP VBG pH (7.31-7.41) Ionized Calcium (1.15-1.33) mmol/L Sodium 133 L (135-145) mmol/L Potassium 3.3 L (3.5-5.0) mmol/L Chloride 99 L (101-111) mmol/L Carbon Dioxide 24 (21-32) mmol/L Anion Gap 10.0 (6-13) BUN 8 (6-20) mg/dL Creatinine 0.4 L (0.6-1.2) mg/dL Estimated GFR (MDRD) 217 (>89) Glucose 99 (70-100) mg/dL Calcium 8.5 (8.5-10.3) mg/dL Phosphorus 4.0 (2.5-4.6) mg/dL Magnesium 1.8 (1.7-2.8) mg/dL Total Bilirubin 1.2 H (0.2-1.0) mg/dL AST 139 H (10-42) IU/L ALT 102 H (10-60) IU/L Alkaline Phosphatase 134 H (42-121) IU/L Ammonia 35.4 H (7-35) umol/L Total Protein 6.4 L (6.7-8.2) g/dL Albumin 3.2 (3.2-5.5) g/dL Globulin 3.2 (2.1-4.2) g/dL Albumin/Globulin Ratio 1.0 (1.0-2.2) Assessment/Plan - Problem List (1) Alcohol withdrawal delirium Impression: This patient is a known alcoholic with history of liver cirrhosis. He presented confused, brought in by ambulance. He was going through active alcohol withdrawal, his CIWA was 21, thus he was admitted to the ICU. CIWA score is 10 today. As still needs Ativan high-dose ICU protocol, on the CIWA protocol Also Librium orally 10 mg 4 times daily was started Plan: Remain in the ICU Cont CIWA protocol with high-dose ICU Ativan treatment as needed I will decrease the scheduled Librium from QID to TID He is still not stable enough and too somnolent yet to start PT and OT. Cont to try to get him OOB to chair for meals. (2) Tarry stool Conclusion/Plan: After presenting to the ICU, the patient had a large tarry stool. He was a poor historian and now is getting sedatives, so we still do not know if he has had this before yesteray. I ordered a guaiac of his stool, which came back pos. I changed his Pepcid p.o. to Protonix po twice daily for treating a poss ulcer His Hgb has been Plan: If his daily hemoglobin starts dropping, will follow hemoglobin twice daily. Would transfuse if hemoglobin drops under 7, or under 8 if he is actively bleed. If there is another tarry stool or if the hemoglobin drops, we will request a general surgery consult for EGD Follow his platelet count daily, transfuse if low. Avoid any aspirin or NSAID products (3) Alcoholism Conclusion/Plan: Patient has known alcohol abuse. In 2021 he was diagnosed with Wernicke's encephalopathy, and was deemed unable to make his own decisions. At admission he could not give details of what his current alcohol intake is and amounts of alcohol he drinks. He did say he prefers whiskey. On labs he has elevated transaminases and low platelet count, consistent with his alcohol abuse and cirrhosis history. Labs were all reviewed. He has a low calcium, magnesium and phosphorus level consistent with poor nutrition Plan: Con IV fluids, tapering down to off as he eats. Cont daily thiamine either p.o. or IV, and a vitamin daily When he is medically clear will request a social work consult for their recommendations or to give him resources for stopping alcohol abuse Follow his LFTs daily and Ammonia intermittently. Will ecide if he needs Lac tulose. Cont ICU electrolyte protocol to correct his abnormal electrolytes Avoid Tylenol or other hepatotoxins (4) Viral respiratory infection Conclusion/Plan: His PCR respiratory panel is positive for both enterovirus and rhinovirus. This possibly could be a cause of his hypoxia however no infiltrates are seen on chest x-ray Plan: If needed, give supplemental O2 keeping saturations greater than 92% Cont prn bronchodilator treatments via nebs Cont BID Mucinex po for pulmonary toilet (5) Tobacco use Conclusion/Plan: He told his RN that he has smoked half pack a day since the age of 19 Plan: Cont nicotine patch (6) Homeless single person Conclusion/Plan: At admission I asked him how it was that he is again on [facility], living alone and not with his sister in [place]. He gave me no details. He said he got here "sometime ago". Social work learned that he was doing fine, not drinking alcohol, then had to return to [facility] for a court date, resumed alcohol abuse, and a friend bought him a car to live in. He may no longer return to live with the sister since he relapsed to alcohol abuse again. Plan: To be determined after he is awake and can communicate with a SW consult. (7) Headache Resolved This patient had a ground-level fall before admission. He had a head CT in the ER which was negative for trauma. He does have a large bruise over his left eye and on the left side of his upper nose. On 05/24 he reported a severe headache, left-sided, where he hit his head, he said. Labs were all reviewed. He presented with a platelet count of 57, on 05/24 his platelet count was 39. This made me concerned for brain hemorrhage given this new symptom A Stat head CT was done and showed no bleed, and no acute changes. Dilaudid x1 was ordered for the headache, in order to avoid Tylenol
[2023-05-26 16:17] LABS: CALCIUM, IONIZED 1.11 mmol/L (1.15-1.33); VBG PH 7.391 (7.31-7.41)
[2023-05-26] MEDS: ZINC OXIDE 20% OINT 30 GM TUBE TOP PRN (21:13)
[2023-05-27 05:08] LABS: HCT - HEMATOCRIT 39.6 % (42.0-52.0); HGB - HEMOGLOBIN 13.5 g/dL (14.0-18.0); MEAN CORPUSCULAR HEMOGLOBIN 30.8 pg (27.0-31.0); MEAN CORPUSCULAR HGB CONC 34.1 g/dL (32.0-36.0); MEAN CORPUSCULAR VOLUME 90.4 fL (80.0-94.0); MEAN PLATELET VOLUME 12.2 fL (7.4-11.4); RED BLOOD COUNT 4.38 10^6/uL (4.70-6.10); WHITE BLOOD COUNT 3.2 x10^3/uL (4.8-10.8)
[2023-05-27 05:13] LABS: CALCIUM, IONIZED 1.09 mmol/L (1.15-1.33); VBG PH 7.463 (7.31-7.41)
[2023-05-27 05:22] LABS: ALBUMIN 3.3 g/dL (3.2-5.5); ALBUMIN/GLOBULIN RATIO 1.2 (1.0-2.2); BILIRUBIN,TOTAL 0.9 mg/dL (0.2-1.0); CALCIUM 8.9 mg/dL (8.5-10.3); CREATININE 0.4 mg/dL (0.6-1.3); MAGNESIUM 1.7 mg/dL (1.7-2.3); PHOSPHORUS 3.7 mg/dL (3.7-7.2); TOTAL PROTEIN 6.1 g/dL (6.4-8.9)
[2023-05-27] MEDS ORDERED: CALCIUM GLUC 1,000MG/50ML-NACL 1,000 MG/50 ML BAG IV ONE (05:58)
[2023-05-27] MEDS ORDERED: MAGNESIUM SULFATE 2 GRAM 2 GM/50 ML BAG IV ONE (05:58)
[2023-05-27] MEDS: ZINC OXIDE 20% OINT 30 GM TUBE TOP PRN (06:19)
[2023-05-27] MEDS: chlordiazePOXIDE 5 MG CAPSULE PO SCH ×3 (06:19→21:21)
[2023-05-27] MEDS: SODIUM CHLORIDE FLUSH 0.9% 10 ML SYRINGE IVP PRN (06:37)
[2023-05-27] MEDS: POTASSIUM CHLORIDE 10 MEQ CAPSULE PO SCH (07:57)
[2023-05-27] MEDS: MAGNESIUM OXIDE 400 MG TABLET PO SCH (07:57)
[2023-05-27] MEDS: NICOTINE 14 MG PATCH TOP SCH (07:57)
[2023-05-27] MEDS: PRENATAL VITAMIN TABLET PO SCH (07:57)
[2023-05-27] MEDS: THIAMINE 100 MG TABLET PO SCH (07:57)
[2023-05-27] MEDS: SODIUM CHLORIDE FLUSH 0.9% 10 ML SYRINGE IVP SCH ×2 (07:58→18:04)
[2023-05-27] MEDS: guaiFENesin 600 MG TABLET PO SCH ×2 (07:58→21:21)
[2023-05-27] MEDS: PANTOPRAZOLE 40 MG TABLET PO SCH ×2 (07:58→21:21)
[2023-05-27 11:12] LABS: ALBUMIN 3.4 g/dL (3.2-5.5); ALBUMIN/GLOBULIN RATIO 1.1 (1.0-2.2); BILIRUBIN,TOTAL 0.8 mg/dL (0.2-1.0); CALCIUM 9.1 mg/dL (8.5-10.3); CREATININE 0.5 mg/dL (0.6-1.3); POTASSIUM 4.2 mmol/L (3.5-4.5); TOTAL PROTEIN 6.4 g/dL (6.4-8.9)
--- NOTE | 2023-05-27 12:59 | PROVIDER PROGRESS NOTE ---
Subjective - Subjective Pt reports feeling: Improved (He was more talkative today although very very bradykinetic. He ate his whole breakfast) Objective - Vital Signs/Intake & Output Vital Signs: Vital Signs Temp Pulse Resp BP Pulse Ox O2 Flow Rate 05/27/23 09:00 36.8 C 94 30 H 105/66 97 1 Intake & Output: Intake & Output 05/24/23 05/25/23 05/26/23 05/27/23 23:59 23:59 23:59 23:59 Intake Total 3394 2256 1365 570 Output Total 4115 3853 726 1 Balance -721 303 639 569 - Objective General Appearance: positive: Lethargic (But overall more awake than yesterday) Eyes Bilateral: positive: Normal inspection, EOMI ENT: positive: ENT inspection nml, No signs of dehydration Neck: positive: Nml inspection, No JVD Respiratory: positive: No respiratory distress, Rhonchi Cardiovascular: positive: Regular rate & rhythm, No murmur Abdomen: positive: Non-tender, Nml bowel sounds, No distention Skin: positive: Warm, Dry Extremities: positive: Non-tender, No pedal edema, Other (Poorly kempt) Neurologic/Psychiatric: positive: Disoriented to person, Disoriented to place, Disoriented to time, Other (Bradykinetic with all his movements. No nystagmus, no tremor) - Lab Results Fish Bones: 05/27/23 04:55 05/27/23 10:45 Other Labs: Lab Results x24hrs 05/27/23 05/27/23 05/27/23 Range/Units 10:45 04:55 04:55 WBC 3.2 L (4.8-10.8) x10^3/uL RBC 4.38 L (4.70-6.10) 10^6/uL Hgb 13.5 L (14.0-18.0) g/dL Hct 39.6 L (42.0-52.0) % MCV 90.4 (80.0-94.0) fL MCH 30.8 (27.0-31.0) pg MCHC 34.1 (32.0-36.0) g/dL RDW 16.0 H (12.0-15.0) % Plt Count 82 L (130-450) 10^3/uL MPV 12.2 H (7.4-11.4) fL VBG pH 7.463 H (7.31-7.41) Ionized Calcium 1.09 L (1.15-1.33) mmol/L Sodium 132 L (135-145) mmol/L Potassium 4.2 (3.5-4.5) mmol/L Chloride 98 L (101-111) mmol/L Carbon Dioxide 28 (21-32) mmol/L Anion Gap 6.0 (6-13) BUN 12 (6-20) mg/dL Creatinine 0.5 L (0.6-1.3) mg/dL Estimated GFR (MDRD) 167 (>89) Glucose 110 H (74-104) mg/dL Calcium 9.1 (8.5-10.3) mg/dL Phosphorus (3.7-7.2) mg/dL Magnesium (1.7-2.3) mg/dL Total Bilirubin 0.8 (0.2-1.0) mg/dL AST 91 H (10-42) IU/L ALT 89 H (10-60) IU/L Alkaline Phosphatase 121 (42-121) IU/L Total Protein 6.4 (6.4-8.9) g/dL Albumin 3.4 (3.2-5.5) g/dL Globulin 3.0 (2.1-4.2) g/dL Albumin/Globulin Ratio 1.1 (1.0-2.2) 05/27/23 05/26/23 05/26/23 Range/Units 04:55 16:04 16:04 WBC (4.8-10.8) x10^3/uL RBC (4.70-6.10) 10^6/uL Hgb (14.0-18.0) g/dL Hct (42.0-52.0) % MCV (80.0-94.0) fL MCH (27.0-31.0) pg MCHC (32.0-36.0) g/dL RDW (12.0-15.0) % Plt Count (130-450) 10^3/uL MPV (7.4-11.4) fL VBG pH 7.391 (7.31-7.41) Ionized Calcium 1.11 L (1.15-1.33) mmol/L Sodium 133 L (135-145) mmol/L Potassium 4.0 (3.5-4.5) mmol/L Chloride 99 L (101-111) mmol/L Carbon Dioxide 27 (21-32) mmol/L Anion Gap 7.0 (6-13) BUN 9 (6-20) mg/dL Creatinine 0.4 L (0.6-1.3) mg/dL Estimated GFR (MDRD) 217 (>89) Glucose 95 (74-104) mg/dL Calcium 8.9 (8.5-10.3) mg/dL Phosphorus 3.7 (3.7-7.2) mg/dL Magnesium 1.7 1.8 (1.7-2.3) mg/dL Total Bilirubin 0.9 (0.2-1.0) mg/dL AST 92 H (10-42) IU/L ALT 87 H (10-60) IU/L Alkaline Phosphatase 120 (42-121) IU/L Total Protein 6.1 L (6.4-8.9) g/dL Albumin 3.3 (3.2-5.5) g/dL Globulin 2.8 (2.1-4.2) g/dL Albumin/Globulin Ratio 1.2 (1.0-2.2) Assessment/Plan - Problem List (1) Alcohol withdrawal delirium Impression: This patient is a known alcoholic with history of liver cirrhosis. He presented confused, brought in by ambulance. He was going through active alcohol withdrawal, his CIWA was 21, thus he was admitted to the ICU. CIWA score is 10 today. Also Librium orally was started at 10 mg QID, yesterday decreased to 10 mg TID. PT & OT have tried to work with him for the last 3 days but he was too s omnolent. Today he is much more interactive, was able to feed himself but all his motions are very slow, from being on [facility] Plan: I will transfer him out of the ICU today to [facility]. Cont CIWA protocol but change from high-dose ICU Ativan treatment to low dose iv Ativan per CIWA score protocol I will decrease the scheduled Librium from 10 mg TID to 5 mg TID PT and OT to try working with him and will cont to try to get him OOB to chair for meals, was ordered. (2) Tarry stool Conclusion/Plan: After presenting to the ICU, the patient had a large tarry stool. He was a poor historian and then has been too sedated to describe if he has had this before yesterday. I ordered a guaiac of his next stool, which came back pos. I changed his Pepcid p.o. to Protonix po twice daily for treating a poss ulcer His Hgb has been stable and no further tarry stools. Plan: If his daily hemoglobin starts dropping, will follow hemoglobin twice daily. Would transfuse if hemoglobin drops under 7, or under 8 if he is actively bleed. If there is another tarry stool or if the hemoglobin drops, we will request a general surgery consult for EGD Follow his platelet count daily, transfuse if low. Cont to avoid any aspirin or NSAID products (3) Alcoholism Conclusion/Plan: Patient has known alcohol abuse. In 2021 he was diagnosed with Wernicke's encephalopathy, and was deemed unable to make his own decisions. He needed to have a guardian At admission now he could not give details of what his current alcohol intake is. He did say he prefers whiskey. On labs he has elevated transaminases and low platelet count, consistent with his alcohol abuse and cirrhosis history. Clinically, he has no ascites on exam. Labs were all reviewed. He had a low calcium, magnesium and phosphorus level consistent with poor nutrition. Fluids have been tapered to off since he is eating and taking in liquids. Plan: Cont daily thiamine and a vitamin daily When he is medically clear will request a social work consult for their recommen dations or to give him resources for stopping alcohol abuse Avoid Tylenol or other hepatotoxins (4) Viral respiratory infection Conclusion/Plan: His PCR respiratory panel is positive for both enterovirus and rhinovirus. This possibly could be a cause of his hypoxia however no infiltrates are seen on chest x-ray. He is still on O2 at 1-2 L per n.c. Plan: Will recheck his CXR today Will try to wean his supplemental O2 to off, keeping saturations greater than 92% Cont prn bronchodilator treatments via nebs Cont BID Mucinex po for pulmonary toilet (5) Tobacco use Conclusion/Plan: He told his RN that he has smoked half pack a day since the age of 19 Plan: Cont nicotine patch (6) Homeless single person Conclusion/Plan: At admission I asked him how it was that he is again on [facility], living alone and not with his sister in [place]. He just stared at me and gave me no details. He said he got here "sometime ago". Social work learned that he was doing fine living with his sister in [place], not drinking alcohol, then he had to return to [facility] for a court date, resumed alcohol abuse, and a friend bought him a car to live in and someone was bringing food and water to his car. [facility] stated that he may no longer return to live with the sister since he relapsed to alcohol abuse again. Plan: To be determined after he is awake and can communicate with a consult. (7) Headache Resolved This patient had a ground-level fall before admission. He does have a large bruise over his left eye. CT done in the ER was negative. Because of the dropping platelet count of 57 to 39, causing concern for brain hemorrhage, he had a repeat head CT. It showed no bleed, and no acute changes. Dilaudid x1 was ordered for the headache, in order to avoid Tylenol
--- NOTE | 2023-05-27 13:13 | XRAY Report ---
PROCEDURE: Chest 1 View X-Ray INDICATIONS: F/U pneumonia TECHNIQUE: One view of the chest was acquired. COMPARISON: CT chest 05/23/2023 FINDINGS: Surgical changes and devices: None. Lungs and pleura: No pleural effusions or pneumothorax. Lungs are clear. Mediastinum: Mediastinal contours appear normal. Heart size is normal. Bones and chest wall: No suspicious bony lesions. Overlying soft tissues appear unremarkable. IMPRESSION: No acute cardiopulmonary process. Reviewed by: Delphine Mack MD on 05/27/2023 1:12 PM PDT Approved by: Delphine Mack MD on 05/27/2023 1:12 PM PDT Station ID: [id number]
[2023-05-28] MEDS: SODIUM CHLORIDE FLUSH 0.9% 10 ML SYRINGE IVP SCH ×3 (03:48→16:08)
[2023-05-28] MEDS: chlordiazePOXIDE 5 MG CAPSULE PO SCH ×2 (05:37→20:20)
[2023-05-28] MEDS: guaiFENesin 600 MG TABLET PO SCH ×2 (08:44→20:19)
[2023-05-28] MEDS: THIAMINE 100 MG TABLET PO SCH (08:44)
[2023-05-28] MEDS: MAGNESIUM OXIDE 400 MG TABLET PO SCH (08:44)
[2023-05-28] MEDS: PRENATAL VITAMIN TABLET PO SCH (08:44)
[2023-05-28] MEDS: PANTOPRAZOLE 40 MG TABLET PO SCH ×2 (08:44→20:19)
[2023-05-28] MEDS: NICOTINE 14 MG PATCH TOP SCH (08:45)
[2023-05-28] MEDS: POTASSIUM CHLORIDE 10 MEQ CAPSULE PO SCH (08:45)
[2023-05-28] MEDS: LORazepam 2 MG/ML VIAL IVP PRN ×5 (09:52→21:23)
--- NOTE | 2023-05-28 13:34 | CT Report ---
PROCEDURE: HEAD WO INDICATIONS: Fell OOB last night TECHNIQUE: Noncontrast 4.5 mm thick angled axial sections acquired from the foramen magnum to the vertex. For r adiation dose reduction, the following was used: automated exposure control, adjustment of mA and/or kV according to patient size. COMPARISON: None. FINDINGS: Image quality: Excellent. CSF spaces: Basal cisterns are patent. No extra-axial fluid collections. Ventricles are normal in size and shape. Brain: No midline shift. No intracranial masses or hemorrhage. Daniels-white matter interface is norm al. Subcortical and periventricular hypodensities are consistent with microvascular ischemic disease and age-related cerebral volume loss. Skull and face: Calvarium and visualized facial bones are intact, without suspicious lesions. Sinuses: Visualized sinuses and mastoids are clear. IMPRESSION: 1. No acute intracranial abnormality. 2. Microvascular ischemic disease and age-related cerebral volume loss. Reviewed by: Km Kaur on 05/28/2023 1:32 PM PDT Approved by: Km Kaur on 05/28/2023 1:32 PM PDT Station ID: [id number]
--- NOTE | 2023-05-28 14:23 | PROVIDER PROGRESS NOTE ---
Assessment/Plan - Problem List (1) Wernicke-Korsakoff syndrome (alcoholic) Assessment/Plan: Patient has known alcohol abuse. In 2021 he was diagnosed with Wernicke's encephalopathy, and was deemed unable to make his own decisions. He needed to have a guardian At admissionhe could not give details of what his current alcohol intake is. Today he is more interactive and says that he was drinking a pint of whiskey a day approximately, He would go by it himself. On labs he has elevated transaminases and low platelet count, consistent with his alcohol abuse and cirrhosis history. Clinically, he has no ascites on exam. Labs were all reviewed. He had a low calcium, magnesium and phosphorus level consistent with poor nutrition. Fluids have been tapered to off since he is eating and taking in liquids. Plan: Cont daily thiamine and a vitamin daily His Ativan high-dose in the ICU has been decreased to low-dose Ativan per CIWA protocol. I am tapering down his Librium in order to decrease his lethargy and bradykinesis. When he is medically clear will request a social work consult for their brannon mmendations or to give him resources for stopping alcohol abuse Avoid Tylenol or other hepatotoxins Continue to try to work with PT and OT (2) Fall during this hospitalization At 01 45 the BUNDLER found him on the floor next to his bed, sitting, SCDs were still attached to his legs. He said he "rolled out of bed and did not hit his head". Nursing did write a note about this event. No telemedicine night provider was informed. No head CT or other x-rays to check for trauma were ordered. Plan: Obtain head CT to R/O trauma or bleed>> No bleeding or trauma was reported on the head CT. (3) Alcohol withdrawal delirium Impression: IMPROVING This patient is a known alcoholic with history of liver cirrhosis. He presented confused, brought in by ambulance. He was going through active alcohol withdrawal, his CIWA was 21, thus he was admitted to the ICU. CIWA score is 10- 15 still today. Librium orally was started at 10 mg QID, and has been decreased to 10 mg TID, then 5 TID. PT & OT have tried to work with him for the last 3 days but he was too somnolent. He could only dangle at edge of bed. Today he is much more interactive, is now able to feed himself and is speaking to us, but all his motions are very slow, probably from being on Benzo's Plan: Cont CIWA protocol using low dose iv Ativan per CIWA score protocol I will further decrease the scheduled Librium from TID to BID, then once tomorrow then will stop the Librium. Continue to try to work with PT and OT (4) Tarry stool Conclusion/Plan: After presenting to the ICU, the patient had a large tarry stool. He was a poor historian and then has been too sedated to describe if he has had this before yesterday. I ordered a guaiac of his next stool, which came back pos. I changed his Pepcid p.o. to Protonix po twice daily for treating a poss ulcer His Hgb has been stable and no further tarry stools. Plan: If his daily hemoglobin starts dropping, will follow hemoglobin twice daily. Would transfuse if hemoglobin drops under 7, or under 8 if he is actively bleed. If there is another tarry stool or if the hemoglobin drops, we will request a general surgery consult for EGD Follow his platelet count daily, transfuse if low. Cont to avoid any aspirin or NSAID products (5) Viral respiratory infection Conclusion/Plan: His PCR respiratory panel is positive for both enterovirus and rhinovirus. This possibly could be a cause of his hypoxia however no infiltrates are seen on chest x-ray. He is off suppl O2. His last CXR was clear. Plan: Cont prn bronchodilator treatments via nebs Cont BID Mucinex po for pulmonary toilet (6) Tobacco use Conclusion/Plan: He told his RN that he has smoked half pack a day since the age of 19 Plan: Cont nicotine patch (7) Homeless single person Conclusion/Plan: At admission I asked him how it was that he is again on [facility], living alone and not with his sister in [place]. He just stared at me and gave me no details. He said he got here "sometime ago". Social work learned that he was doing fine living with his sister in [place], not drinking alcohol, then he had to return to [facility] for a court date, he resumed alcohol abuse, and we learned that a friend bought him a car to live in and someone was bringing food and water to his car. Patient did disclose today that his ex- is letting him live on their previous farm property. SW has stated that he may no longer return to live with the sister since he relapsed to alcohol abuse again. Plan: I will order he take a shower today Disposition to be determined after he is more communicative, will obtain a SW consult. (8) Headache Resolved This patient had a ground-level fall before admission. He does have a large bruise over his left eye. CT done in the ER was negative. Because of the dropping platelet count of 57 to 39, causing concern for brain hemorrhage, he had a repeat head CT. It showed no bleed, and no acute changes. Dilaudid x1 was ordered for the headache, in order to avoid Tylenol - Current Meds Current Meds: Current Medications Generic Name Dose Route Start Last Admin Trade Name Freq PRN Reason Stop Dose Admin Albuterol/Ipratropium 3 ml 05/23/23 13:08 05/26/23 06:38 Ipratropium/Albuterol 3 Ml Neb INH 3 ml RTQID PRN Administration Shortness of Air/Wheezing Guaifenesin 600 mg 05/23/23 21:00 05/28/23 08:44 Guaifenesin 600 Mg Tablet PO 600 mg BID MARY Administration Lorazepam 1 mg 05/27/23 10:28 05/28/23 09:52 Lorazepam 2 Mg/Ml Vial IVP 1 mg Q30M PRN Administration CIWA >8 Protocol Magnesium Oxide 400 mg 05/26/23 08:00 05/28/23 08:44 Magnesium Oxide 400 Mg Tablet PO 400 mg DAILYWM MARY Administration Multi-Ingredient Ointment 1 applic 05/23/23 12:08 05/27/23 06:19 Zinc Oxide 20% Oint 30 Gm Tube TOP 1 applic PRN PRN Administration Skin Care Nicotine 1 patch 05/23/23 15:17 05/28/23 08:45 Nicotine 14 Mg Patch TOP 1 patch DAILY MARY Administration Pantoprazole Sodium 40 mg 05/24/23 21:00 05/28/23 08:44 Pantoprazole 40 Mg Tablet PO 40 mg BID MARY Administration Potassium Chloride 20 meq 05/27/23 08:00 05/28/23 08:45 Potassium Chloride 10 Meq Capsule PO 20 meq DAILYWM MARY Administration Multivit/Folic Acid/Iron 1 tab 05/24/23 09:00 05/28/23 08:44 Vitamin Tablet PO 1 tab DAILY MARY Administration Sodium Chloride 10 ml 05/23/23 17:00 05/28/23 08:48 Sodium Chloride Flush 0.9% 10 Ml Syringe IVP 10 ml 0100,0900,1700 MARY Administration Sodium Chloride 10 ml 05/23/23 11:06 05/27/23 06:37 Sodium Chloride Flush 0.9% 10 Ml Syringe IVP 10 ml PRN PRN Administration NEEDED PER PROVIDER ORDERS Thiamine HCl 100 mg 05/24/23 09:00 05/28/23 08:44 Thiamine 100 Mg Tablet PO 100 mg DAILY MARY Administration - Lab Result Fish Bone Diagrams: 05/27/23 04:55 05/27/23 10:45 - Additional Planning My Orders: My Active Orders 05/27/23 14:43 Miscellaenous Nursing Order [RC] ONCE 05/28/23 10:07 Shower [RC] ONCE 05/28/23 21:00 chlordiazePOXIDE [Librium] 5 mg PO BID Subjective - Subjective Nursing Reports: Other (Patient is more communicative, able to feed himself, requesting to have his wallet taken out of the lock box and kept on his tray.) Objective Vital Signs: Vital Signs - 24 hr 05/27/23 05/27/23 05/27/23 16:00 17:00 20:07 Temperature 36.5 C Heart Rate [ 91 106 H Monitoring electrodes] Respiratory 18 22 Rate Blood Pressure 103/76 [Left Brachial artery] Blood Pressure 114/79 [Right Brachial artery] O2 Saturation 96 96 97 If not protocol 0.5 : Oxygen Flow, liters/minute 05/27/23 05/28/23 22:54 08:00 Temperature 36.9 C 36.4 C L Heart Rate [ 95 93 Monitoring electrodes] Respiratory 20 18 Rate Blood Pressure 99/64 [Left Brachial artery] Blood Pressure 120/83 H [Right Brachial artery] O2 Saturation 98 93 If not protocol : Oxygen Flow, liters/minute Oxygen O2 Source [Without Activity] Nasal cannula O2 Source Room air Oxygen Flow Rate 4 I&O (Last 24 Hrs): Intake and Output Totals x24h 05/26/23 05/27/23 05/28/23 23:59 23:59 23:59 Intake Total 1365 1010 912 Output Total 726 41 350 Balance 639 969 562 General: Alert HEENT: EOMI, Mucous membr. moist/pink Neck: Supple, No JVD Neuro: Alert, Other (Bradykinetic, has poor memory.) Cardiovascular: Regular rate Respiratory: No respiratory distress Abdomen: Soft Extremities: No clubbing, No edema, Other (Dirty fingernails and poorly kempt) - Results Results: Laboratory Results WBC 3.2 x10^3/uL (4.8-10.8) L 05/27/23 04:55 RBC 4.38 10^6/uL (4.70-6.10) L 05/27/23 04:55 Hgb 13.5 g/dL (14.0-18.0) L 05/27/23 04:55 Hct 39.6 % (42.0-52.0) L 05/27/23 04:55 MCV 90.4 fL (80.0-94.0) 05/27/23 04:55 MCH 30.8 pg (27.0-31.0) 05/27/23 04:55 MCHC 34.1 g/dL (32.0-36.0) 05/27/23 04:55 RDW 16.0 % (12.0-15.0) H 05/27/23 04:55 Plt Count 82 10^3/uL (130-450) L 05/27/23 04:55 MPV 12.2 fL (7.4-11.4) H 05/27/23 04:55 Neut # (Auto) 2.9 10^3/uL (1.5-6.6) 05/24/23 04:16 Lymph # (Auto) 0.6 10^3/uL (1.5-3.5) L 05/24/23 04:16 Travis # (Auto) 0.3 10^3/uL (0.0-1.0) 05/24/23 04:16 Eos # (Auto) 0.0 10^3/uL (0.0-0.7) 05/24/23 04:16 Baso # (Auto) 0.0 10^3/uL (0.0-0.1) 05/24/23 04:16 Absolute Nucleated RBC 0.00 x10^3/uL 05/24/23 04:16 Nucleated RBC % 0.0 /100WBC 05/24/23 04:16 Manual Slide Review Indicated 05/22/23 20:14 Platelet Estimate DECREASED (<130,000) (NORMAL) 05/22/23 20:14 Platelet Morphology NORMAL APPEARANCE (NORMAL) 05/22/23 20:14 RBC Morph Micro Appear NORMAL APPEARANCE (NORMAL) 05/22/23 20:14 PT 13.0 secs (9.9-12.6) H 05/24/23 04:16 INR 1.2 (0.8-1.2) 05/24/23 04:16 D-Dimer 730.4 ng/mL (200.0-255.0) H 05/23/23 07:31 VBG pH 7.463 (7.31-7.41) H 05/27/23 04:55 Ionized Calcium 1.09 mmol/L (1.15-1.33) L 05/27/23 04:55 Sodium 132 mmol/L (135-145) L 05/27/23 10:45 Potassium 4.2 mmol/L (3.5-4.5) 05/27/23 10:45 Chloride 98 mmol/L (101-111) L 05/27/23 10:45 Carbon Dioxide 28 mmol/L (21-32) 05/27/23 10:45 Anion Gap 6.0 (6-13) 05/27/23 10:45 BUN 12 mg/dL (6-20) 05/27/23 10:45 Creatinine 0.5 mg/dL (0.6-1.3) L 05/27/23 10:45 Estimated GFR (MDRD) 167 (>89) 05/27/23 10:45 Glucose 110 mg/dL (74-104) H 05/27/23 10:45 Calcium 9.1 mg/dL (8.5-10.3) 05/27/23 10:45 Phosphorus 3.7 mg/dL (3.7-7.2) 05/27/23 04:55 Magnesium 1.7 mg/dL (1.7-2.3) 05/27/23 04:55 Total Bilirubin 0.8 mg/dL (0.2-1.0) 05/27/23 10:45 AST 91 IU/L (10-42) H 05/27/23 10:45 ALT 89 IU/L (10-60) H 05/27/23 10:45 Alkaline Phosphatase 121 IU/L (42-121) 05/27/23 10:45 Ammonia 35.4 umol/L (7-35) H 05/26/23 04:29 B-Natriuretic Peptide 23 pg/mL (5-100) 05/23/23 07:31 Total Protein 6.4 g/dL (6.4-8.9) 05/27/23 10:45 Albumin 3.4 g/dL (3.2-5.5) 05/27/23 10:45 Globulin 3.0 g/dL (2.1-4.2) 05/27/23 10:45 Albumin/Globulin Ratio 1.1 (1.0-2.2) 05/27/23 10:45 Lipase 106 U/L (22-51) H 05/22/23 20:14 Urine Color DARK YELLOW 05/23/23 15:26 Urine Clarity CLEAR (CLEAR) 05/23/23 15:26 Urine pH 6.5 PH (5.0-7.5) 05/23/23 15:26 Ur Specific Bailey 1.025 (1.002-1.030) 05/23/23 15:26 Urine Protein 100 mg/dL (NEGATIVE) H 05/23/23 15:26 Urine Glucose (UA) NEGATIVE mg/dL (NEGATIVE) 05/23/23 15:26 Urine Ketones 15 mg/dL (NEGATIVE) H 05/23/23 15:26 Urine Occult Blood SMALL (NEGATIVE) H 05/23/23 15:26 Urine Nitrite NEGATIVE (NEGATIVE) 05/23/23 15:26 Urine Bilirubin SMALL (NEGATIVE) H 05/23/23 15:26 Urine Urobilinogen 2 E.U./dL (NORMAL) H 05/23/23 15:26 Ur Leukocyte Esterase NEGATIVE (NEGATIVE) 05/23/23 15:26 Urine RBC 0-5 /HPF (0-5) 05/23/23 15:26 Urine WBC 0-3 /HPF (0-3) 05/23/23 15:26 Ur Squamous Epith Cells NONE SEEN (<= Few) 05/23/23 15:26 Urine Bacteria Rare /HPF (None Seen) 05/23/23 15:26 Ur Microscopic Review INDICATED 05/23/23 15:26 Urine Culture Comments NOT INDICATED 05/23/23 15:26 Nasal Adenovirus (PCR) NOT DETECTED 05/23/23 07:57 Nasal B. parapertussis DNA (PCR) NOT DETECTED 05/23/23 07:57 Nasal Coronavir 229E PCR NOT DETECTED 05/23/23 07:57 Nasal Coronavir HKU1 PCR NOT DETECTED 05/23/23 07:57 Nasal Coronavir NL63 PCR NOT DETECTED 05/23/23 07:57 Nasal Coronavir OC43 PCR NOT DETECTED 05/23/23 07:57 Nasal Enterovir/Rhinovir PCR DETECTED A 05/23/23 07:57 Nasal Influenza B PCR NOT DETECTED 05/23/23 07:57 Nasal Influenza A PCR NOT DETECTED 05/23/23 07:57 Nasal Parainfluen 1 PCR NOT DETECTED 05/23/23 07:57 Nasal Parainfluen 2 PCR NOT DETECTED 05/23/23 07:57 Nasal Parainfluen 3 PCR NOT DETECTED 05/23/23 07:57 Nasal Parainfluen 4 PCR NOT DETECTED 05/23/23 07:57 Nasal RSV (PCR) NOT DETECTED 05/23/23 07:57 Nasal Screen MRSA (PCR) NEGATIVE (NEGATIVE) 05/23/23 12:10 Nasal B.pertussis DNA PCR NOT DETECTED 05/23/23 07:57 Nasal C.pneumoniae (PCR) NOT DETECTED 05/23/23 07:57 Juan Daniel Human Metapneumo PCR NOT DETECTED 05/23/23 07:57 Nasal M.pneumoniae (PCR) NOT DETECTED 05/23/23 07:57 Nasal SARS-CoV-2 (PCR) NOT DETECTED 05/23/23 07:57 Urine Opiates Screen NEGATIVE (NEGATIVE) 05/23/23 15:26 Ur Oxycodone Screen NEGATIVE (NEGATIVE) 05/23/23 15:26 Urine Methadone Screen NEGATIVE (NEGATIVE) 05/23/23 15:26 Ur Propoxyphene Screen NEGATIVE (NEGATIVE) 05/23/23 15:26 Ur Barbiturates Screen POSITIVE (NEGATIVE) H 05/23/23 15:26 Ur Tricyclics Screen NEGATIVE (NEGATIVE) 05/23/23 15:26 Ur Phencyclidine Scrn NEGATIVE (NEGATIVE) 05/23/23 15:26 Ur Amphetamine Screen NEGATIVE (NEGATIVE) 05/23/23 15:26 U Methamphetamines Scrn NEGATIVE (NEGATIVE) 05/23/23 15:26 U Benzodiazepines Scrn POSITIVE (NEGATIVE) H 05/23/23 15:26 Urine Cocaine Screen NEGATIVE (NEGATIVE) 05/23/23 15:26 U Cannabinoids Screen POSITIVE (NEGATIVE) H 05/23/23 15:26 Ethyl Alcohol 291.5 mg/dL 05/22/23 20:14
[2023-05-28] MEDS: SODIUM CHLORIDE FLUSH 0.9% 10 ML SYRINGE IVP PRN (14:31)
[2023-05-28] MEDS ORDERED: ACETAMINOPHEN 500 MG TABLET PO SCH (23:45)
[2023-05-29] MEDS: LORazepam 2 MG/ML VIAL IVP PRN ×9 (00:26→19:01)
[2023-05-29] MEDS: SODIUM CHLORIDE FLUSH 0.9% 10 ML SYRINGE IVP SCH ×3 (00:27→17:45)
[2023-05-29] MEDS: MAGNESIUM OXIDE 400 MG TABLET PO SCH (09:00)
[2023-05-29] MEDS: POTASSIUM CHLORIDE 10 MEQ CAPSULE PO SCH (09:00)
[2023-05-29] MEDS: THIAMINE 100 MG TABLET PO SCH (09:00)
[2023-05-29] MEDS: PRENATAL VITAMIN TABLET PO SCH (09:00)
[2023-05-29] MEDS: chlordiazePOXIDE 5 MG CAPSULE PO SCH ×2 (09:00→21:55)
[2023-05-29] MEDS: NICOTINE 14 MG PATCH TOP SCH (09:01)
[2023-05-29] MEDS: PANTOPRAZOLE 40 MG TABLET PO SCH ×2 (09:01→21:55)
[2023-05-29] MEDS: guaiFENesin 600 MG TABLET PO SCH ×2 (09:01→21:54)
--- NOTE | 2023-05-29 10:21 | PROVIDER PROGRESS NOTE ---
Assessment/Plan - Problem List (1) Wernicke-Korsakoff syndrome (alcoholic) Assessment/Plan: Patient has known alcohol abuse. In 2021 he was diagnosed with Wernicke's encephalopathy, and was deemed unable to make his own decisions. He needed to have a guardian At admissionhe could not give details of what his current alcohol intake is. Today he is more interactive and says that he was drinking a pint of whiskey a day approximately, He would go by it himself. On labs he has elevated transaminases and low platelet count, consistent with his alcohol abuse and cirrhosis history. Clinically, he has no ascites on exam. Labs were all reviewed. He had a low calcium, magnesium and phosphorus level consistent with poor nutrition. Fluids have been tapered to off since he is eating and taking in liquids. Plan: Cont daily thiamine and a vitamin daily Cont the low-dose Ativan per CIWA protocol. Cont tapering down his Librium in order to decrease his lethargy and bradykinesis. When he is medically clear will request a social work consult for their recommendations or to give him resources for stopping alcohol abuse Avoid Tylenol or other hepatotoxins Continue to try to work with PT and OT (2) Fall during this hospitalization The previous night, the [employer] found him on the floor next to his bed, sitting, and SCDs were still attached to his legs. He said he "rolled out of bed and did not hit his head". Nursing did write a note about this event. No telemedicine night provider was informed. No head CT or other x-rays to check for trauma were ordered. Plan: Obtain head CT to R/O trauma or bleed>> No bleeding or trauma was reported on the head CT. (3) Alcohol withdrawal delirium Impression: IMPROVING This patient is a known alcoholic with history of liver cirrhosis. He presented confused, brought in by ambulance. He was going through active alcohol withdrawal, his CIWA was 21, thus he was admitted to the ICU. CIWA score is 10- 15 still today. Librium orally was started at 10 mg QID, and has been decreased to 10 mg TID, then 5 TID. PT & OT have tried to work with him for the last 3 days but he was too somnolent. He could only dangle at edge of bed. On 05/28 he was much more interactive, but today is asleep all day. He needed Benzos overnight, scored 16 on CIWA and was awake all night Plan: Cont CIWA protocol using low dose iv Ativan per CIWA score protocol I will further decrease the scheduled Librium from BID, then at night for 1-2 nights, then will stop the Librium. Continue to try to work with PT and OT (4) Tarry stool Conclusion/Plan: After presenting to the ICU, the patient had a large tarry stool. He was a poor historian and then has been too sedated to describe if he has had this before yesterday. I ordered a guaiac of his next stool, which came back pos. I changed his Pepcid p.o. to Protonix po twice daily for treating a poss ulcer His Hgb has been stable and no further tarry stools. Plan: If his daily hemoglobin starts dropping, will follow hemoglobin twice daily. Would transfuse if hemoglobin drops under 7, or under 8 if he is actively bleed. If there is another tarry stool or if the hemoglobin drops, we will request a general surgery consult for EGD Follow his platelet count daily, transfuse if low. Cont to avoid any aspirin or NSAID products (5) Viral respiratory infection Conclusion/Plan: His PCR respiratory panel is positive for both enterovirus and rhinovirus. This possibly could be a cause of his hypoxia however no infiltrates are seen on chest x-ray. He is off suppl O2. His last CXR was clear. Plan: Cont prn bronchodilator treatments via nebs Cont BID Mucinex po for pulmonary toilet (6) Tobacco use Conclusion/Plan: He told his RN that he has smoked half pack a day since the age of 19 Plan: Cont nicotine patch (7) Homeless single person Conclusion/Plan: At admission I asked him how it was that he is again on [facility], living alone and not with his sister in [place]. He just stared at me and gave me no details. He said he got here "sometime ago". Social work learned that he was doing fine living with his sister in [place], not drinking alcohol, then he had to return to [facility] for a court date, he resumed alcohol abuse, and we learned that a friend bought him a car to live in and someone was bringing food and water to his car. Patient did disclose today that his ex- is letting him live on their previous farm property. SW has stated that he may no longer return to live with the sister since he relapsed to alcohol abuse again. Plan: I will order he take a shower today Disposition to be determined after he is more communicative, will obtain a SW consult. - Current Meds Current Meds: Current Medications Generic Name Dose Route Start Last Admin Trade Name Debby PRN Reason Stop Dose Admin Acetaminophen 500 mg 05/28/23 23:45 05/29/23 00:24 Acetaminophen 500 Mg Tablet PO 05/29/23 23:44 500 mg ONCE MARY Administration Albuterol/Ipratropium 3 ml 05/23/23 13:08 05/26/23 06:38 Ipratropium/Albuterol 3 Ml Neb INH 3 ml RTQID PRN Administration Shortness of Air/Wheezing Chlordiazepoxide HCl 5 mg 05/28/23 21:00 05/29/23 09:00 Chlordiazepoxide 5 Mg Capsule PO 5 mg BID MARY Administration Guaifenesin 600 mg 05/23/23 21:00 05/29/23 09:01 Guaifenesin 600 Mg Tablet PO 600 mg BID MARY Administration Lorazepam 1 mg 05/27/23 10:28 05/29/23 09:49 Lorazepam 2 Mg/Ml Vial IVP 1 mg Q30M PRN Administration CIWA >8 Protocol Magnesium Oxide 400 mg 05/26/23 08:00 05/29/23 09:00 Magnesium Oxide 400 Mg Tablet PO 400 mg DAILYWM MARY Administration Multi-Ingredient Ointment 1 applic 05/23/23 12:08 05/27/23 06:19 Zinc Oxide 20% Oint 30 Gm Tube TOP 1 applic PRN PRN Administration Skin Care Nicotine 1 patch 05/23/23 15:17 05/29/23 09:01 Nicotine 14 Mg Patch TOP 1 patch DAILY MARY Administration Pantoprazole Sodium 40 mg 05/24/23 21:00 05/29/23 09:01 Pantoprazole 40 Mg Tablet PO 40 mg BID MARY Administration Potassium Chloride 20 meq 05/27/23 08:00 05/29/23 09:00 Potassium Chloride 10 Meq Capsule PO 20 meq DAILYWM MARY Administration Multivit/Folic Acid/Iron 1 tab 05/24/23 09:00 05/29/23 09:00 Vitamin Tablet PO 1 tab DAILY MARY Administration Sodium Chloride 10 ml 05/23/23 17:00 05/29/23 09:01 Sodium Chloride Flush 0.9% 10 Ml Syringe IVP 10 ml 0100,0900,1700 MARY Administration Sodium Chloride 10 ml 05/23/23 11:06 05/28/23 14:31 Sodium Chloride Flush 0.9% 10 Ml Syringe IVP 10 ml PRN PRN Administration NEEDED PER PROVIDER ORDERS Thiamine HCl 100 mg 05/24/23 09:00 05/29/23 09:00 Thiamine 100 Mg Tablet PO 100 mg DAILY MARY Administration - Lab Result Fish Bone Diagrams: 05/27/23 04:55 05/27/23 10:45 - Additional Planning My Orders: My Active Orders 05/28/23 10:07 Shower [RC] ONCE 05/28/23 21:00 chlordiazePOXIDE [Librium] 5 mg PO BID Subjective - Subjective Nursing Reports: Other (Asleep, RN said he was awake all night, had a CIWA score of 16 overnight.) Objective Vital Signs: Vital Signs - 24 hr 05/28/23 05/28/23 05/29/23 15:12 23:10 07:37 Temperature 36.8 C 36.3 C L 36.5 C Heart Rate [ 94 87 Brachial] Heart Rate [ 93 Monitoring electrodes] Respiratory 18 20 18 Rate Blood Pressure 114/7 L 112/70 119/77 [Right Brachial artery] O2 Saturation 94 91 L 93 Oxygen O2 Source [Without Activity] Nasal cannula O2 Source Room air Oxygen Flow Rate 4 I&O (Last 24 Hrs): Intake and Output Totals x24h 05/27/23 05/28/23 05/29/23 23:59 23:59 23:59 Intake Total 1010 1152 240 Output Total 41 350 Balance 969 802 240 General: Other (Lethargic) HEENT: Mucous membr. moist/pink Neck: No JVD Neuro: Other (Lethargic) Cardiovascular: Regular rate Respiratory: No respiratory distress Abdomen: Soft Extremities: No clubbing, No edema - Results Results: Laboratory Results WBC 3.2 x10^3/uL (4.8-10.8) L 05/27/23 04:55 RBC 4.38 10^6/uL (4.70-6.10) L 05/27/23 04:55 Hgb 13.5 g/dL (14.0-18.0) L 05/27/23 04:55 Hct 39.6 % (42.0-52.0) L 05/27/23 04:55 MCV 90.4 fL (80.0-94.0) 05/27/23 04:55 MCH 30.8 pg (27.0-31.0) 05/27/23 04:55 MCHC 34.1 g/dL (32.0-36.0) 05/27/23 04:55 RDW 16.0 % (12.0-15.0) H 05/27/23 04:55 Plt Count 82 10^3/uL (130-450) L 05/27/23 04:55 MPV 12.2 fL (7.4-11.4) H 05/27/23 04:55 Neut # (Auto) 2.9 10^3/uL (1.5-6.6) 05/24/23 04:16 Lymph # (Auto) 0.6 10^3/uL (1.5-3.5) L 05/24/23 04:16 [place] # (Auto) 0.3 10^3/uL (0.0-1.0) 05/24/23 04:16 Eos # (Auto) 0.0 10^3/uL (0.0-0.7) 05/24/23 04:16 Baso # (Auto) 0.0 10^3/uL (0.0-0.1) 05/24/23 04:16 Absolute Nucleated RBC 0.00 x10^3/uL 05/24/23 04:16 Nucleated RBC % 0.0 /100WBC 05/24/23 04:16 Manual Slide Review Indicated 05/22/23 20:14 Platelet Estimate DECREASED (<130,000) (NORMAL) 05/22/23 20:14 Platelet Morphology NORMAL APPEARANCE (NORMAL) 05/22/23 20:14 RBC Morph Micro Appear NORMAL APPEARANCE (NORMAL) 05/22/23 20:14 PT 13.0 secs (9.9-12.6) H 05/24/23 04:16 INR 1.2 (0.8-1.2) 05/24/23 04:16 D-Dimer 730.4 ng/mL (200.0-255.0) H 05/23/23 07:31 VBG pH 7.463 (7.31-7.41) H 05/27/23 04:55 Ionized Calcium 1.09 mmol/L (1.15-1.33) L 05/27/23 04:55 Sodium 132 mmol/L (135-145) L 05/27/23 10:45 Potassium 4.2 mmol/L (3.5-4.5) 05/27/23 10:45 Chloride 98 mmol/L (101-111) L 05/27/23 10:45 Carbon Dioxide 28 mmol/L (21-32) 05/27/23 10:45 Anion Gap 6.0 (6-13) 05/27/23 10:45 BUN 12 mg/dL (6-20) 05/27/23 10:45 Creatinine 0.5 mg/dL (0.6-1.3) L 05/27/23 10:45 Estimated GFR (MDRD) 167 (>89) 05/27/23 10:45 Glucose 110 mg/dL (74-104) H 05/27/23 10:45 Calcium 9.1 mg/dL (8.5-10.3) 05/27/23 10:45 Phosphorus 3.7 mg/dL (3.7-7.2) 05/27/23 04:55 Magnesium 1.7 mg/dL (1.7-2.3) 05/27/23 04:55 Total Bilirubin 0.8 mg/dL (0.2-1.0) 05/27/23 10:45 AST 91 IU/L (10-42) H 05/27/23 10:45 ALT 89 IU/L (10-60) H 05/27/23 10:45 Alkaline Phosphatase 121 IU/L (42-121) 05/27/23 10:45 Ammonia 35.4 umol/L (7-35) H 05/26/23 04:29 B-Natriuretic Peptide 23 pg/mL (5-100) 05/23/23 07:31 Total Protein 6.4 g/dL (6.4-8.9) 05/27/23 10:45 Albumin 3.4 g/dL (3.2-5.5) 05/27/23 10:45 Globulin 3.0 g/dL (2.1-4.2) 05/27/23 10:45 Albumin/Globulin Ratio 1.1 (1.0-2.2) 05/27/23 10:45 Lipase 106 U/L (22-51) H 05/22/23 20:14 Urine Color DARK YELLOW 05/23/23 15:26 Urine Clarity CLEAR (CLEAR) 05/23/23 15:26 Urine pH 6.5 PH (5.0-7.5) 05/23/23 15:26 Ur Specific [place] 1.025 (1.002-1.030) 05/23/23 15:26 Urine Protein 100 mg/dL (NEGATIVE) H 05/23/23 15:26 Urine Glucose (UA) NEGATIVE mg/dL (NEGATIVE) 05/23/23 15:26 Urine Ketones 15 mg/dL (NEGATIVE) H 05/23/23 15:26 Urine Occult Blood SMALL (NEGATIVE) H 05/23/23 15:26 Urine Nitrite NEGATIVE (NEGATIVE) 05/23/23 15:26 Urine Bilirubin SMALL (NEGATIVE) H 05/23/23 15:26 Urine Urobilinogen 2 E.U./dL (NORMAL) H 05/23/23 15:26 Ur Leukocyte Esterase NEGATIVE (NEGATIVE) 05/23/23 15:26 Urine RBC 0-5 /HPF (0-5) 05/23/23 15:26 Urine WBC 0-3 /HPF (0-3) 05/23/23 15:26 Ur Squamous Epith Cells NONE SEEN (<= Few) 05/23/23 15:26 Urine Bacteria Rare /HPF (None Seen) 05/23/23 15:26 Ur Microscopic Review INDICATED 05/23/23 15:26 Urine Culture Comments NOT INDICATED 05/23/23 15:26 Nasal Adenovirus (PCR) NOT DETECTED 05/23/23 07:57 Nasal B. parapertussis DNA (PCR) NOT DETECTED 05/23/23 07:57 Nasal Coronavir 229E PCR NOT DETECTED 05/23/23 07:57 Nasal Coronavir HKU1 PCR NOT DETECTED 05/23/23 07:57 Nasal Coronavir NL63 PCR NOT DETECTED 05/23/23 07:57 Nasal Coronavir OC43 PCR NOT DETECTED 05/23/23 07:57 Nasal Enterovir/Rhinovir PCR DETECTED A 05/23/23 07:57 Nasal Influenza B PCR NOT DETECTED 05/23/23 07:57 Nasal Influenza A PCR NOT DETECTED 05/23/23 07:57 Nasal Parainfluen 1 PCR NOT DETECTED 05/23/23 07:57 Nasal Parainfluen 2 PCR NOT DETECTED 05/23/23 07:57 Nasal Parainfluen 3 PCR NOT DETECTED 05/23/23 07:57 Nasal Parainfluen 4 PCR NOT DETECTED 05/23/23 07:57 Nasal RSV (PCR) NOT DETECTED 05/23/23 07:57 Nasal Screen MRSA (PCR) NEGATIVE (NEGATIVE) 05/23/23 12:10 Nasal B.pertussis DNA PCR NOT DETECTED 05/23/23 07:57 Nasal C.pneumoniae (PCR) NOT DETECTED 05/23/23 07:57 Juan Daniel Human Metapneumo PCR NOT DETECTED 05/23/23 07:57 Nasal M.pneumoniae (PCR) NOT DETECTED 05/23/23 07:57 Nasal SARS-CoV-2 (PCR) NOT DETECTED 05/23/23 07:57 Urine Opiates Screen NEGATIVE (NEGATIVE) 05/23/23 15:26 Ur Oxycodone Screen NEGATIVE (NEGATIVE) 05/23/23 15:26 Urine Methadone Screen NEGATIVE (NEGATIVE) 05/23/23 15:26 Ur Propoxyphene Screen NEGATIVE (NEGATIVE) 05/23/23 15:26 Ur Barbiturates Screen POSITIVE (NEGATIVE) H 05/23/23 15:26 Ur Tricyclics Screen NEGATIVE (NEGATIVE) 05/23/23 15:26 Ur Phencyclidine Scrn NEGATIVE (NEGATIVE) 05/23/23 15:26 Ur Amphetamine Screen NEGATIVE (NEGATIVE) 05/23/23 15:26 U Methamphetamines Scrn NEGATIVE (NEGATIVE) 05/23/23 15:26 U Benzodiazepines Scrn POSITIVE (NEGATIVE) H 05/23/23 15:26 Urine Cocaine Screen NEGATIVE (NEGATIVE) 05/23/23 15:26 U Cannabinoids Screen POSITIVE (NEGATIVE) H 05/23/23 15:26 Ethyl Alcohol 291.5 mg/dL 05/22/23 20:14
[2023-05-30] MEDS: SODIUM CHLORIDE FLUSH 0.9% 10 ML SYRINGE IVP SCH ×3 (06:45→21:03)
[2023-05-30] MEDS: polyethylene glycoL 3350 17 GM PACKET PO SCH (07:31)
[2023-05-30] MEDS: THIAMINE 100 MG TABLET PO SCH (08:32)
[2023-05-30] MEDS: POTASSIUM CHLORIDE 10 MEQ CAPSULE PO SCH (08:32)
[2023-05-30] MEDS: MAGNESIUM OXIDE 400 MG TABLET PO SCH (08:33)
[2023-05-30] MEDS: guaiFENesin 600 MG TABLET PO SCH ×2 (08:33→21:03)
[2023-05-30] MEDS: PANTOPRAZOLE 40 MG TABLET PO SCH ×2 (08:33→21:03)
[2023-05-30] MEDS: NICOTINE 14 MG PATCH TOP SCH (08:33)
[2023-05-30] MEDS: PRENATAL VITAMIN TABLET PO SCH (08:33)
[2023-05-30] MEDS: ZINC OXIDE 20% OINT 30 GM TUBE TOP PRN (08:38)
[2023-05-30] MEDS: IPRATROPIUM/ALBUTEROL 3 ML NEB INH SCH ×2 (09:10→19:40)
--- NOTE | 2023-05-30 10:16 | PROVIDER PROGRESS NOTE ---
Assessment/Plan - Problem List (1) Wernicke-Korsakoff syndrome (alcoholic) Assessment/Plan: Patient has known alcohol abuse. In 2021 he was diagnosed with Wernicke's encephalopathy, and was deemed unable to make his own decisions. He needed to have a guardian At admission he could not give details of what his current alcohol intake is. Since he became more interactive and says that he was drinking a pint of whiskey a day, he would go buy it himself. On labs he has elevated transaminases and low platelet count, consistent with his alcohol abuse and cirrhosis history. Clinically, he has no ascites on exam. Labs were all reviewed. He had a low calcium, magnesium and phosphorus level consistent with poor nutrition. Fluids have been tapered to off since he is eating and taking in liquids. Plan: Cont daily thiamine and a vitamin daily Stop Ativen prn and stop the CIWA protocol today When he is medically clear will request a social work consult for their recommendations or to give him resources for stopping alcohol abuse Avoid Tylenol or other hepatotoxins Continue to try to work with PT and OT (2) Reversed sleep wake cycle Assessment/Plan: On his CIWA protocol he was getting alot of Ativan and we noticed he was rahel mostly sleeping during the day. He participates minimally with PT and OT because he is so sleepy. For the last 2 nights he has been mostly awake at night. Yesterday evening his ex- visited and told his RN that he is always awake all night and sleeps all day. With this knowledge, he was assisted by staff and walked with his nurse twice in the hallway and even was able to take the stairs last night, as compared to only being able to stand and pivot transfer during the daytime with PT Plan: I will not try to correct his reversed sleep cycle I will order nighttime snacks/meals while he is awake Today I will stop his CIWA protocol and stop daytime Ativan. Continue with the Librium every evening for about 2 more days, to help with any withdrawal symptoms when he is awake, which is nightime. (3) Fall during this hospitalization Several nights ago, at 0145, the [employer] found him on the floor next to his bed, sitting, and SCDs were still attached to his legs. He said he "rolled out of bed and did not hit his head". Nursing did write a note about this event. A head CT was done the next morning, to check for trauma and CT had no acute findings. Since then he has complained of pain in his buttocks and his left forehead (he presented with a bruise of the left forehead from a fall before being admitted) Plan: Now that we know that he is up every night, he will need vigilance from his RN and [employer]. (4) Alcohol withdrawal delirium Impression: IMPROVING This patient is a known alcoholic with history of liver cirrhosis. He presented confused, brought in by ambulance. He was going through active alcohol withdrawal, his CIWA was 21, thus he was admitted to the ICU. CIWA score is 10- 15 still today. Librium orally was started at 10 mg QID, and has been decreased to 10 mg TID, then 5 TID. PT & OT have tried to work with him for the last 3 days but he was too somnolent. He could only dangle at edge of bed. On 05/28 he was much more interactive, but yesterday and today is asleep all day. Plan: Today I will stop his CIWA protocol and daytime Ativan. Continue with the Librium every evening for about 2 more days, to help with withdrawal symptoms w hen he is awake, which is nightime. Continue to try to work with PT and OT (5) Tarry stool Conclusion/Plan: After presenting to the ICU, the patient had a large tarry stool. He was a poor historian and then has been too sedated to describe if he has had this before,.I ordered a guaiac of his next stool, which came back pos. I changed his Pepcid p.o. to Protonix po twice daily for treating a poss ulcer His Hgb has been stable and no further tarry stools. Plan: We will now check his hemoglobin and platelet count intermittently, not daily. Transfuse if hemoglobin drops under 7, or under 8 if he is actively bleeding. Cont to avoid any aspirin or NSAID products (6) Viral respiratory infection Conclusion/Plan: His PCR respiratory panel is positive for both enterovirus and rhinovirus. This possibly could be a cause of his hypoxia however no infiltrates are seen on chest x-ray. He is off suppl O2. His last CXR was clear. Plan: I will order scheduled nebs BID. Cont prn bronchodilator treatments via nebs Cont BID Mucinex po for pulmonary toilet (7) Tobacco use Conclusion/Plan: He told his RN that he has smoked half pack a day since the age of 19 Plan: Cont nicotine patch (8) Homeless single person Conclusion/Plan: Social work learned that he was doing fine living with his sister in [place], not drinking alcohol, then he had to return to [facility] for a court date, and he resumed alcohol abuse. A friend bought him a vehicle to live in and his ex- is letting him live on her property (which was their [place] [facility]). SW has stated that he may no longer return to live with the sister, since he relapsed to alcohol abuse again. When the visited yesterday, she said that he often wakes her up by knocking on the door of her home between 0200 and 0700. Plan: Shower prn When he is awake and communicative,which we now know is at nighttime, I will discuss and suggest that his disposition and discharge plan be to go to live in an assisted living facility or permanent detention - Current Meds Current Meds: Current Medications Generic Name Dose Route Start Last Admin Trade Name Freq PRN Reason Stop Dose Admin Albuterol/Ipratropium 3 ml 05/23/23 13:08 05/26/23 06:38 Ipratropium/Albuterol 3 Ml Neb INH 3 ml RTQID PRN Administration Shortness of Air/Wheezing Albuterol/Ipratropium 3 ml 05/30/23 08:00 05/30/23 09:10 Ipratropium/Albuterol 3 Ml Neb INH Not Given RTBID MARY Guaifenesin 600 mg 05/23/23 21:00 05/30/23 08:33 Guaifenesin 600 Mg Tablet PO 600 mg BID MARY Administration Magnesium Oxide 400 mg 05/26/23 08:00 05/30/23 08:33 Magnesium Oxide 400 Mg Tablet PO 400 mg DAILYWM MARY Administration Multi-Ingredient Ointment 1 applic 05/23/23 12:08 05/30/23 08:38 Zinc Oxide 20% Oint 30 Gm Tube TOP 1 applic PRN PRN Administration Skin Care Nicotine 1 patch 05/23/23 15:17 05/30/23 08:33 Nicotine 14 Mg Patch TOP 1 patch DAILY MARY Administration Pantoprazole Sodium 40 mg 05/24/23 21:00 05/30/23 08:33 Pantoprazole 40 Mg Tablet PO 40 mg BID AMRY Administration Polyethylene Glycol 17 gm 05/30/23 09:00 05/30/23 07:31 Polyethylene Glycol 3350 17 Gm Packet PO Not Given DAILY MARY Potassium Chloride 20 meq 05/27/23 08:00 05/30/23 08:32 Potassium Chloride 10 Meq Capsule PO 20 meq DAILYWM MARY Administration Multivit/Folic Acid/Iron 1 tab 05/24/23 09:00 05/30/23 08:33 Vitamin Tablet PO 1 tab DAILY MARY Administration Sodium Chloride 10 ml 05/23/23 17:00 05/30/23 08:33 Sodium Chloride Flush 0.9% 10 Ml Syringe IVP 10 ml 0100,0900,1700 MARY Administration Sodium Chloride 10 ml 05/23/23 11:06 05/28/23 14:31 Sodium Chloride Flush 0.9% 10 Ml Syringe IVP 10 ml PRN PRN Administration NEEDED PER PROVIDER ORDERS Thiamine HCl 100 mg 05/24/23 09:00 05/30/23 08:32 Thiamine 100 Mg Tablet PO 100 mg DAILY MARY Administration - Lab Result Fish Bone Diagrams: 05/27/23 04:55 05/27/23 10:45 - Additional Planning My Orders: My Active Orders 05/30/23 08:00 Ipratropium/Albuterol [Duoneb] 3 ml INH RTBID 05/30/23 09:00 polyethylene glycoL 3350 [Miralax] 17 gm PO DAILY 05/30/23 21:00 chlordiazePOXIDE [Librium] 5 mg PO QPM Subjective - Subjective Nursing Reports: Other (Asleep. He wakes to his name but only says 1 word and falls back asleep) Objective Vital Signs: Vital Signs - 24 hr 05/29/23 05/29/23 05/30/23 15:39 23:50 09:15 Temperature 36.7 C 36.6 C 36.5 C Heart Rate [ 85 103 H 93 Brachial] Respiratory 16 20 18 Rate Blood Pressure 112/81 H 103/64 99/76 [Right Brachial artery] O2 Saturation 94 91 L 93 Oxygen O2 Source [Without Activity] Nasal cannula O2 Source Room air Oxygen Flow Rate 4 I&O (Last 24 Hrs): Intake and Output Totals x24h 05/28/23 05/29/2305/30/23 23:59 23:59 23:59 Intake Total 1152 640 480 Output Total 350 Balance 802 640 480 General: Other (Asleep, hard to awaken) HEENT: Mucous membr. moist/pink Neck: No JVD Neuro: Other (Lethargic) Cardiovascular: Regular rate Respiratory: No respiratory distress Abdomen: Soft Extremities: No clubbing, No edema - Results Results: Laboratory Results WBC 3.2 x10^3/uL (4.8-10.8) L 05/27/23 04:55 RBC 4.38 10^6/uL (4.70-6.10) L 05/27/23 04:55 Hgb 13.5 g/dL (14.0-18.0) L 05/27/23 04:55 Hct 39.6 % (42.0-52.0) L 05/27/23 04:55 MCV 90.4 fL (80.0-94.0) 05/27/23 04:55 MCH 30.8 pg (27.0-31.0) 05/27/23 04:55 MCHC 34.1 g/dL (32.0-36.0) 05/27/23 04:55 RDW 16.0 % (12.0-15.0) H 05/27/23 04:55 Plt Count 82 10^3/uL (130-450) L 05/27/23 04:55 MPV 12.2 fL (7.4-11.4) H 05/27/23 04:55 Neut # (Auto) 2.9 10^3/uL (1.5-6.6) 05/24/23 04:16 Lymph # (Auto) 0.6 10^3/uL (1.5-3.5) L 05/24/23 04:16 [place] # (Auto) 0.3 10^3/uL (0.0-1.0) 05/24/23 04:16 Eos # (Auto) 0.0 10^3/uL (0.0-0.7) 05/24/23 04:16 Baso # (Auto) 0.0 10^3/uL (0.0-0.1) 05/24/23 04:16 Absolute Nucleated RBC 0.00 x10^3/uL 05/24/23 04:16 Nucleated RBC % 0.0 /100WBC 05/24/23 04:16 Manual Slide Review Indicated 05/22/23 20:14 Platelet Estimate DECREASED (<130,000) (NORMAL) 05/22/23 20:14 Platelet Morphology NORMAL APPEARANCE (NORMAL) 05/22/23 20:14 RBC Morph Micro Appear NORMAL APPEARANCE (NORMAL) 05/22/23 20:14 PT 13.0 secs (9.9-12.6) H 05/24/23 04:16 INR 1.2 (0.8-1.2) 05/24/23 04:16 D-Dimer 730.4 ng/mL (200.0-255.0) H 05/23/23 07:31 VBG pH 7.463 (7.31-7.41) H 05/27/23 04:55 Ionized Calcium 1.09 mmol/L (1.15-1.33) L 05/27/23 04:55 Sodium 132 mmol/L (135-145) L 05/27/23 10:45 Potassium 4.2 mmol/L (3.5-4.5) 05/27/23 10:45 Chloride 98 mmol/L (101-111) L 05/27/23 10:45 Carbon Dioxide 28 mmol/L (21-32) 05/27/23 10:45 Anion Gap 6.0 (6-13) 05/27/23 10:45 BUN 12 mg/dL (6-20) 05/27/23 10:45 Creatinine 0.5 mg/dL (0.6-1.3) L 05/27/23 10:45 Estimated GFR (MDRD) 167 (>89) 05/27/23 10:45 Glucose 110 mg/dL (74-104) H 05/27/23 10:45 Calcium 9.1 mg/dL (8.5-10.3) 05/27/23 10:45 Phosphorus 3.7 mg/dL (3.7-7.2) 05/27/23 04:55 Magnesium 1.7 mg/dL (1.7-2.3) 05/27/23 04:55 Total Bilirubin 0.8 mg/dL (0.2-1.0) 05/27/23 10:45 AST 91 IU/L (10-42) H 05/27/23 10:45 ALT 89 IU/L (10-60) H 05/27/23 10:45 Alkaline Phosphatase 121 IU/L (42-121) 05/27/23 10:45 Ammonia 35.4 umol/L (7-35) H 05/26/23 04:29 B-Natriuretic Peptide 23 pg/mL (5-100) 05/23/23 07:31 Total Protein 6.4 g/dL (6.4-8.9) 05/27/23 10:45 Albumin 3.4 g/dL (3.2-5.5) 05/27/23 10:45 Globulin 3.0 g/dL (2.1-4.2) 05/27/23 10:45 Albumin/Globulin Ratio 1.1 (1.0-2.2) 05/27/23 10:45 Lipase 106 U/L (22-51) H 05/22/23 20:14 Urine Color DARK YELLOW 05/23/23 15:26 Urine Clarity CLEAR (CLEAR) 05/23/23 15:26 Urine pH 6.5 PH (5.0-7.5) 05/23/23 15:26 Ur Specific [place] 1.025 (1.002-1.030) 05/23/23 15:26 Urine Protein 100 mg/dL (NEGATIVE) H 05/23/23 15:26 Urine Glucose (UA) NEGATIVE mg/dL (NEGATIVE) 05/23/23 15:26 Urine Ketones 15 mg/dL (NEGATIVE) H 05/23/23 15:26 Urine Occult Blood SMALL (NEGATIVE) H 05/23/23 15:26 Urine Nitrite NEGATIVE (NEGATIVE) 05/23/23 15:26 Urine Bilirubin SMALL (NEGATIVE) H 05/23/23 15:26 Urine Urobilinogen 2 E.U./dL (NORMAL) H 05/23/23 15:26 Ur Leukocyte Esterase NEGATIVE (NEGATIVE) 05/23/23 15:26 Urine RBC 0-5 /HPF (0-5) 05/23/23 15:26 Urine WBC 0-3 /HPF (0-3) 05/23/23 15:26 Ur Squamous Epith Cells NONE SEEN (<= Few) 05/23/23 15:26 Urine Bacteria Rare /HPF (None Seen) 05/23/23 15:26 Ur Microscopic Review INDICATED 05/23/23 15:26 Urine Culture Comments NOT INDICATED 05/23/23 15:26 Nasal Adenovirus (PCR) NOT DETECTED 05/23/23 07:57 Nasal B. parapertussis DNA (PCR) NOT DETECTED 05/23/23 07:57 Nasal Coronavir 229E PCR NOT DETECTED 05/23/23 07:57 Nasal Coronavir HKU1 PCR NOT DETECTED 05/23/23 07:57 Nasal Coronavir NL63 PCR NOT DETECTED 05/23/23 07:57 Nasal Coronavir OC43 PCR NOT DETECTED 05/23/23 07:57 Nasal Enterovir/Rhinovir PCR DETECTED A 05/23/23 07:57 Nasal Influenza B PCR NOT DETECTED 05/23/23 07:57 Nasal Influenza A PCR NOT DETECTED 05/23/23 07:57 Nasal Parainfluen 1 PCR NOT DETECTED 05/23/23 07:57 Nasal Parainfluen 2 PCR NOT DETECTED 05/23/23 07:57 Nasal Parainfluen 3 PCR NOT DETECTED 05/23/23 07:57 Nasal Parainfluen 4 PCR NOT DETECTED 05/23/23 07:57 Nasal RSV (PCR) NOT DETECTED 05/23/23 07:57 Nasal Screen MRSA (PCR) NEGATIVE (NEGATIVE) 05/23/23 12:10 Nasal B.pertussis DNA PCR NOT DETECTED 05/23/23 07:57 Nasal C.pneumoniae (PCR) NOT DETECTED 05/23/23 07:57 Juan Daniel Human Metapneumo PCR NOT DETECTED 05/23/23 07:57 Nasal M.pneumoniae (PCR) NOT DETECTED 05/23/23 07:57 Nasal SARS-CoV-2 (PCR) NOT DETECTED 05/23/23 07:57 Urine Opiates Screen NEGATIVE (NEGATIVE) 05/23/23 15:26 Ur Oxycodone Screen NEGATIVE (NEGATIVE) 05/23/23 15:26 Urine Methadone Screen NEGATIVE (NEGATIVE) 05/23/23 15:26 Ur Propoxyphene Screen NEGATIVE (NEGATIVE) 05/23/23 15:26 Ur Barbiturates Screen POSITIVE (NEGATIVE) H 05/23/23 15:26 Ur Tricyclics Screen NEGATIVE (NEGATIVE) 05/23/23 15:26 Ur Phencyclidine Scrn NEGATIVE (NEGATIVE) 05/23/23 15:26 Ur Amphetamine Screen NEGATIVE (NEGATIVE) 05/23/23 15:26 U Methamphetamines Scrn NEGATIVE (NEGATIVE) 05/23/23 15:26 U Benzodiazepines Scrn POSITIVE (NEGATIVE) H 05/23/23 15:26 Urine Cocaine Screen NEGATIVE (NEGATIVE) 05/23/23 15:26 U Cannabinoids Screen POSITIVE (NEGATIVE) H 05/23/23 15:26 Ethyl Alcohol 291.5 mg/dL 05/22/23 20:14
[2023-05-30] MEDS ORDERED: ACETAMINOPHEN 500 MG TABLET PO STA (20:49)
[2023-05-30] MEDS: chlordiazePOXIDE 5 MG CAPSULE PO SCH (21:03)
[2023-05-31] MEDS: SODIUM CHLORIDE FLUSH 0.9% 10 ML SYRINGE IVP SCH ×3 (00:12→11:27)
[2023-05-31] MEDS: IPRATROPIUM/ALBUTEROL 3 ML NEB INH SCH (07:23)
[2023-05-31] MEDS: guaiFENesin 600 MG TABLET PO SCH ×2 (08:16→20:27)
[2023-05-31] MEDS: PANTOPRAZOLE 40 MG TABLET PO SCH ×2 (08:17→20:27)
[2023-05-31] MEDS: PRENATAL VITAMIN TABLET PO SCH (08:17)
[2023-05-31] MEDS: MAGNESIUM OXIDE 400 MG TABLET PO SCH (08:18)
[2023-05-31] MEDS: POTASSIUM CHLORIDE 10 MEQ CAPSULE PO SCH (08:18)
[2023-05-31] MEDS: polyethylene glycoL 3350 17 GM PACKET PO SCH (08:18)
[2023-05-31] MEDS: NICOTINE 14 MG PATCH TOP SCH (08:19)
[2023-05-31] MEDS: THIAMINE 100 MG TABLET PO SCH (08:21)
--- NOTE | 2023-05-31 13:05 | TELEPSYCH PHYS NOTE ---
Telepsych Consultation Note Consult: Name: Casa WallDOB: 1960 DateandTime: 05/31/2023 3:15:41 PM [facility]ocation of the doctor: ALHAJI Length of consult: 50 This evaluation was conducted via video telepsychiatry with the assistance of onsite staff Reason for consult: medical hospitalized with secondary MH complaint Requested by: Judy History of Present Illness: Patient hospitalized inpatient 05/23 with complicated alcohol withdrawal. He has a history of similar hospitalization and Wernicke Encephalopathy. Last admission was Dec-February 2022 - he was found not to have capacity for decision making and his daughter was assigned as guardian. He seems to have lived with a sister in [place] after that but has resumed drinking after moving back to [facility] and is no longer welcome at sister's home. He is currently homeless and his ex is helping him with food/water. On contact he reports he is in the hospital "because it was right near where I was living". He thinks he is "in my room.. in a hospital" and it is "Augist 2023". He thinks he is getting treatment for a cough and denies it is related to alcohol use. He admits sleeping poorly, feeling tremulous, and having a headache. Admits he was not eating before admission. He denies SI - "hell no" and denies he has any chronic mental health issues. He reports he has a counseling town, [place] "but shes not here yet". He then states he is tired and wants to sleep, declines further interview. Collateral Contacted: Lay for not contacting the collateral:OtherOther: no active risk factor Sleep issues?: YesSleep Quantity:impaired by recent alcohol use and w/dSleep Quality: Psychiatric History/Treatment History: Past diagnoses: AUD Hospitalizations: No Current Treatment:No Suicide Assessment: PSS-3: 1) Over the past 2 weeks have you felt down, depressed or hopeless?No 2) Over the past 2 weeks have you had thoughts of killing yourself?No 3) Have you ever in your life attempted to kill yourself?No Within the past 6 months? 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" Responsibility to family/children/work: Unknown-NA Future orientation:Unknown-NA Health History: Medical History: AUD Alcoholic cirrhosis Tarry stool respiratory infection Medications & Freq: Albuterol guafenesin mag oxide nicotine patch 14mg daily pantoprazole 40mg daily POt chl 10 meq folic acid tab thiamine 100mg tab daily Allergies: PCN Mental Status Exam: Appearance and Attire:Good eye contact, Thin Psychomotor agitation:LE weakness Attitude and behavior:Cooperative, confused Speech:Slow, Soft, Paucity of speech Mood:Anxious Affect:Constricted Thought process:Circumstantial, Vague Thought content:No suicidal ideation, No homicidal ideation, No paranoia, No delusions Perception:No hallucinations Intel:Average Abstract:[place] Language:No abnormality Orientation:Oriented to person, Oriented to place Sense:Distractible, Delirious Knowledge:Mild impairment Memory:Not intact Insight:Moderate impairment Judgement:Moderate impairment Gait:unable to assess Impression/Risk Assessment: Current Suicide Risk Elevated?No Current Violence Risk Elevated?No Issues with ability to care for self?Yes Summary: Patient is a 63 yo white male with a history of severe alcohol use disorder and previous Wernicke Encephalopathy who presents for treatment of complicated alcohol withdrawal. Pysch consult requested to review current mental health needs and support detox efforts. Patient presents as confused and confabulating at times. He likely has new or compounded Wernicke Encephalopathy on top of Korsakoff syndrome given the chronicity of his cognitive impairments. In his case residential level ISABELLE treatment may be helpful, if his cognitive status clears sufficiently to for intensive skill building and confinement away from alcohol use. However, placement in a nursing facility may be needed- ideally with some level of ISABELLE counseling. He is not appropriate for inpatient psychiatry. He is unlikely to find success as an outpatient in any capacity and will benefit from a supervised environment. Diagnosis: F05 Delirium due to known physiological condition, F10.231 Alcohol dependence with withdrawal delirium CPT Codes: 66464 - Psychiatric Diagnostic Evaluation with Medical Services Treatment Plan: General: Consider course of high dose thiamine if not already completed (meeting Kris criteria before admit): Thiamine 500mg IV TID x 3 days, followed by 500mg IV x 5 days, before transition to oral 250mg daily. If agitation occurs in content of delirium, consider depakote 250mg BID. For post acute withdrawal support, gabapentin 100-300mg TID may be an initial starting dose- may also support cravings. Naltrexone 50mg can be considered for alcohol cravings an general use reduction. If he tolerates, VIvitrol 380mg IM [id number] may be of benefit. Haldol 2mg Q6H PRN for delirium agitation. Level of Care: medical/nursing Psychiatric Clearance: Yes Observation level 1:1 needed?: YesNotes:if falls, wandering, or agitation continues Pharmacological: as above Patient psychotic?No Therapy: supportive Follow up needed while in the hospital?: No Discussed plan with onsite contact center team lead: Yes Who STONE Baker Other: List names and roles of persons who participated in consult: Olivia Chinchilla RN
[2023-05-31] MEDS ORDERED: HALOPERIDOL 5 MG/ML VIAL IVP PRN (15:57)
--- NOTE | 2023-05-31 17:49 | PROVIDER PROGRESS NOTE ---
Assessment/Plan - Problem List (1) Acute delirium Assessment/Plan: This morning his RN told me that his behavior is more aggressive, he is refusing to take any pills, he is saying that we are experimenting on his body, he is trying to get up on his own, he says that a light bulb exploded in his mouth this morning, he is looking for the light bulb in the garbage can, he refuses to have his vital signs taken A Telepsych eval was ordered and it was done. The impression was that he is delirious today. 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 His daughter today told our RN that when he went to one of his court dates on [facility], he was deemed incapacitated, and cannot make his own decisions. transportation maintenance worker today said they have not been able to get that paperwork yet to confirm it. Plan: We will start high-dose IV thiamine 500 mg 3 times daily for 3 days then 500 mg daily for 5 days then oral thiamine 250 mg daily, as was recommended by the Telepsych bank consultant. We will order Haldol as needed for agitation, as was recommended also. Other recommendations could also be followed if needed, such as the use of Depakote. The patient therefore needs to have decisions made for him, based on all the above. Social Work has been asked to be involved. (2) Wernicke-Korsakoff syndrome (alcoholic) Assessment/Plan: Patient has known alcohol abuse. In 2021 he was diagnosed with Wernicke's encep halopathy, and was deemed unable to make his own decisions. He needed to have a guardian At admission he could not give details of what his current alcohol intake is. When he became more interactive and says that he was drinking a pint of whiskey a day, he would go buy it himself. On labs he has elevated transaminases and low platelet count, consistent with his alcohol abuse and cirrhosis history. Clinically, he has no ascites on exam. Labs were all reviewed. He had a low calcium, magnesium and phosphorus level consistent with poor nutrition. Fluids have been tapered to off since he is eating and taking in liquids. He has been tapered down to off of his iv Ativan yesterday and CIWA protocol was stopped yesterday after 6 days of admission. Plan: Cont vitamin daily and Librium at hs. Will give Thiamine high dose as advised by TelePsych bank consultant today Will order Haldol prn agitation, as also advised by TelePsych bank consultant today When he is medically clear will request a social work consult for their recommendations Continue to try to work with PT and OT (3) Reversed sleep wake cycle Assessment/Plan: On his CIWA protocol he was getting alot of Ativan and we noticed he was rahel mostly sleeping during the day. He participates minimally with PT and OT because he is so sleepy. For the last 2 nights he has been mostly awake at night. Y evening his ex- visited and told his RN that he is always awake all night and sleeps all day. With this knowledge, he was assisted by staff and walked with his nurse twice in the hallway and even was able to take the stairs last night, as compared to only being able to stand and pivot transfer during the daytime with PT Plan: I will not try to correct his reversed sleep cycle I will order nighttime snacks/meals while he is awake Continue with the Librium every evening for about 2 more nights (4) Fall during this hospitalization Several nights ago, at 0145, the REDUCTION FURNACE OPERATOR found him on the floor next to his bed, sitting, and SCDs were still attached to his legs. He said he "rolled out of bed and did not hit his head". Nursing did write a note about this event. A head CT was done the next morning, to check for trauma and CT had no acute findings. Since then he has complained of pain in his buttocks and his left forehead (he presented with a bruise of the left forehead from a fall before being admitted) Plan: Now that we know that he is up every night, he will need vigilance from his RN and REDUCTION FURNACE OPERATOR. (5) Tarry stool Conclusion/Plan: After presenting to the ICU, the patient had a large tarry stool. He was a poor historian and then has been too sedated to describe if he has had this before,.I ordered a guaiac of his next stool, which came back pos. I changed his Pepcid p.o. to Protonix po twice daily for treating a poss ulcer His Hgb has been stable and no further tarry stools. Plan: We will now check his hemoglobin and platelet count intermittently, not daily. Transfuse if hemoglobin drops under 7, or under 8 if he is actively bleeding. Cont to avoid any aspirin or NSAID products (6) Viral respiratory infection Conclusion/Plan: His PCR respiratory panel is positive for both enterovirus and rhinovirus. This possibly could be a cause of his hypoxia however no infiltrates are seen on chest x-ray. He is off suppl O2. His last CXR was clear. Today RT told me that he cannot understand how to use the incentive spirometer and is not having any benefit from his scheduled Plan: I will stop his scheduled nebs BID and his IS Cont BID Mucinex po for pulmonary toilet (7) Tobacco use Conclusion/Plan: He told his RN that he has smoked half pack a day since the age of 19 Plan: Cont nicotine patch (8) Homeless single person Conclusion/Plan: Social work learned that he was doing fine living with his sister in [place], not drinking alcohol, then he had to return to [facility] for a court date, and he resumed alcohol abuse. A friend bought him a vehicle to live in and his ex- is letting him live on her property (which was their previous farm property). SW has stated that he may no longer return to live with the sister, since he relapsed to alcohol abuse again. When the visited yesterday, she said that he often wakes her up by knocking on the door of her home between 0200 and 0700. Plan: Shower prn When he is awake and communicative, which we now know is at nighttime, we need to discuss and suggest that his disposition and discharge plan be to go to live in an assisted living facility or permanent residential. That was the same recommendation given today by the Telepsych bank consultant (9) Alcohol withdrawal Impression: RESOLVED This patient is a known alcoholic with history of liver cirrhosis. He presented confused, brought in by ambulance. He was going through active alcohol withdrawal, his CIWA was 21, thus he was admitted to the ICU. CIWA score is 10- 15 still today. Librium orally was started at 10 mg QID, and has been decreased to 10 mg TID, then 5 TID. PT & OT have tried to work with him for the last 3 days but he was too somnolent. He could only dangle at edge of bed. Since 05/28 he has been able to walk 2 laps around the hospital corridor doors and climb stairs during the third shift lieutenant Plan: Continue with the Librium every evening for about 2 more nights. Continue to try to work with PT and OT, I will order that be done as late as possible - Current Meds Current Meds: Current Medications Generic Name Dose Route Start Last Admin Trade Name Freq PRN Reason Stop Dose Admin Chlordiazepoxide HCl 5 mg 05/30/23 21:00 05/30/23 21:03 Chlordiazepoxide 5 Mg Capsule PO 5 mg QPM MARY Administration Guaifenesin 600 mg 05/23/23 21:00 05/31/23 08:16 Guaifenesin 600 Mg Tablet PO 600 mg BID MARY Administration Magnesium Oxide 400 mg 05/26/23 08:00 05/31/23 08:18 Magnesium Oxide 400 Mg Tablet PO 400 mg DAILYWM MARY Administration Multi-Ingredient Ointment 1 applic 05/23/23 12:08 05/30/23 08:38 Zinc Oxide 20% Oint 30 Gm Tube TOP 1 applic PRN PRN Administration Skin Care Nicotine 1 patch 05/23/23 15:17 05/31/23 08:19 Nicotine 14 Mg Patch TOP 1 patch DAILY MARY Administration Pantoprazole Sodium 40 mg 05/24/23 21:00 05/31/23 08:17 Pantoprazole 40 Mg Tablet PO 40 mg BID MARY Administration Polyethylene Glycol 17 gm 05/30/23 09:00 05/31/23 08:18 Polyethylene Glycol 3350 17 Gm Packet PO 17 gm DAILY MARY Administration Potassium Chloride 20 meq 05/27/23 08:00 05/31/23 08:18 Potassium Chloride 10 Meq Capsule PO 20 meq DAILYWM MARY Administration Multivit/Folic Acid/Iron 1 tab 05/24/23 09:00 05/31/23 08:17 Vitamin Tablet PO 1 tab DAILY MARY Administration Sodium Chloride 10 ml 05/23/23 17:00 05/31/23 11:27 Sodium Chloride Flush 0.9% 10 Ml Syringe IVP 10 ml 0100,0900,1700 MARY Administration Sodium Chloride 10 ml 05/23/23 11:06 05/28/23 14:31 Sodium Chloride Flush 0.9% 10 Ml Syringe IVP 10 ml PRN PRN Administration NEEDED PER PROVIDER ORDERS - Lab Result Fish Bone Diagrams: 05/27/23 04:55 05/27/23 10:45 - Additional Planning My Orders: My Active Orders 05/30/23 21:00 chlordiazePOXIDE [Librium] 5 mg PO QPM 05/31/23 1:1 Safety Observation [OTHERS] Routine 05/31/23 10:21 Miscellaenous Nursing Order [RC] QSHIFT Acetaminophen [Tylenol] 650 mg PO Q8HR PRN 05/31/23 Lunch Soft Mechanical Diet [DIET] 05/31/23 15:57 Haloperidol Inj [Haldol Inj] 2 mg IVP Q6H PRN 05/31/23 22:00 Thiamine Inj [Vitamin B-1 Inj] 500 mg Sodium Chloride 0.9% [Normal Saline 0.9%] 50 ml IV TID 06/04/23 09:00 Thiamine Inj [Vitamin B-1 Inj] 500 mg Sodium Chloride 0.9% [Normal Saline 0.9%] 50 ml IV DAILY Subjective - Subjective Nursing Reports: Other (Agitated, delirious, paranoid, per his RN) Objective Vital Signs: Vital Signs - 24 hr 05/30/23 05/30/23 05/31/23 19:40 23:30 07:25 Temperature 36.3 C L Heart Rate 20 L 74 Heart Rate [ 80 Brachial] Respiratory 80 H 20 20 Rate Blood Pressure 101/65 [Right Brachial artery] O2 Saturation 94 05/31/23 05/31/23 05/31/23 07:32 08:45 15:17 Temperature 36.3 C L 36.3 C L Heart Rate Heart Rate [ 74 79 86 Brachial] Respiratory 18 18 16 Rate Blood Pressure 109/80 108/71 101/64 [Right Brachial artery] O2 Saturation 95 92 96 Oxygen O2 Source [Without Activity] Nasal cannula O2 Source Room air Oxygen Flow Rate 4 I&O (Last 24 Hrs): Intake and Output Totals x24h 05/29/23 05/30/23 05/31/23 23:59 23:59 23:59 Intake Total 640 1190 1065 Output Total 575 Balance 640 1190 490 General: Alert, No acute distress HEENT: Mucous membr. moist/pink Neck: Supple Neuro: Alert, Disoriented, Non Focal Cardiovascular: Regular rate Respiratory: No respiratory distress Extremities: No clubbing, No edema - Results Results: Laboratory Results WBC 3.2 x10^3/uL (4.8-10.8) L 05/27/23 04:55 RBC 4.38 10^6/uL (4.70-6.10) L 05/27/23 04:55 Hgb 13.5 g/dL (14.0-18.0) L 05/27/23 04:55 Hct 39.6 % (42.0-52.0) L 05/27/23 04:55 MCV 90.4 fL (80.0-94.0) 05/27/23 04:55 MCH 30.8 pg (27.0-31.0) 05/27/23 04:55 MCHC 34.1 g/dL (32.0-36.0) 05/27/23 04:55 RDW 16.0 % (12.0-15.0) H 05/27/23 04:55 Plt Count 82 10^3/uL (130-450) L 05/27/23 04:55 MPV 12.2 fL (7.4-11.4) H 05/27/23 04:55 Neut # (Auto) 2.9 10^3/uL (1.5-6.6) 05/24/23 04:16 Lymph # (Auto) 0.6 10^3/uL (1.5-3.5) L 05/24/23 04:16 Banks # (Auto) 0.3 10^3/uL (0.0-1.0) 05/24/23 04:16 Eos # (Auto) 0.0 10^3/uL (0.0-0.7) 05/24/23 04:16 Baso # (Auto) 0.0 10^3/uL (0.0-0.1) 05/24/23 04:16 Absolute Nucleated RBC 0.00 x10^3/uL 05/24/23 04:16 Nucleated RBC % 0.0 /100WBC 05/24/23 04:16 Manual Slide Review Indicated 05/22/23 20:14 Platelet Estimate DECREASED (<130,000) (NORMAL) 05/22/23 20:14 Platelet Morphology NORMAL APPEARANCE (NORMAL) 05/22/23 20:14 RBC Morph Micro Appear NORMAL APPEARANCE (NORMAL) 05/22/23 20:14 PT 13.0 secs (9.9-12.6) H 05/24/23 04:16 INR 1.2 (0.8-1.2) 05/24/23 04:16 D-Dimer 730.4 ng/mL (200.0-255.0) H 05/23/23 07:31 VBG pH 7.463 (7.31-7.41) H 05/27/23 04:55 Ionized Calcium 1.09 mmol/L (1.15-1.33) L 05/27/23 04:55 Sodium 132 mmol/L (135-145) L 05/27/23 10:45 Potassium 4.2 mmol/L (3.5-4.5) 05/27/23 10:45 Chloride 98 mmol/L (101-111) L 05/27/23 10:45 Carbon Dioxide 28 mmol/L (21-32) 05/27/23 10:45 Anion Gap 6.0 (6-13) 05/27/23 10:45 BUN 12 mg/dL (6-20) 05/27/23 10:45 Creatinine 0.5 mg/dL (0.6-1.3) L 05/27/23 10:45 Estimated GFR (MDRD) 167 (>89) 05/27/23 10:45 Glucose 110 mg/dL (74-104) H 05/27/23 10:45 Calcium 9.1 mg/dL (8.5-10.3) 05/27/23 10:45 Phosphorus 3.7 mg/dL (3.7-7.2) 05/27/23 04:55 Magnesium 1.7 mg/dL (1.7-2.3) 05/27/23 04:55 Total Bilirubin 0.8 mg/dL (0.2-1.0) 05/27/23 10:45 AST 91 IU/L (10-42) H 05/27/23 10:45 ALT 89 IU/L (10-60) H 05/27/23 10:45 Alkaline Phosphatase 121 IU/L (42-121) 05/27/23 10:45 Ammonia 35.4 umol/L (7-35) H 05/26/23 04:29 B-Natriuretic Peptide 23 pg/mL (5-100) 05/23/23 07:31 Total Protein 6.4 g/dL (6.4-8.9) 05/27/23 10:45 Albumin 3.4 g/dL (3.2-5.5) 05/27/23 10:45 Globulin 3.0 g/dL (2.1-4.2) 05/27/23 10:45 Albumin/Globulin Ratio 1.1 (1.0-2.2) 05/27/23 10:45 Lipase 106 U/L (22-51) H 05/22/23 20:14 Urine Color DARK YELLOW 05/23/23 15:26 Urine Clarity CLEAR (CLEAR) 05/23/23 15:26 Urine pH 6.5 PH (5.0-7.5) 05/23/23 15:26 Ur Specific [place] 1.025 (1.002-1.030) 05/23/23 15:26 Urine Protein 100 mg/dL (NEGATIVE) H 05/23/23 15:26 Urine Glucose (UA) NEGATIVE mg/dL (NEGATIVE) 05/23/23 15:26 Urine Ketones 15 mg/dL (NEGATIVE) H 05/23/23 15:26 Urine Occult Blood SMALL (NEGATIVE) H 05/23/23 15:26 Urine Nitrite NEGATIVE (NEGATIVE) 05/23/23 15:26 Urine Bilirubin SMALL (NEGATIVE) H 05/23/23 15:26 Urine Urobilinogen 2 E.U./dL (NORMAL) H 05/23/23 15:26 Ur Leukocyte Esterase NEGATIVE (NEGATIVE) 05/23/23 15:26 Urine RBC 0-5 /HPF (0-5) 05/23/23 15:26 Urine WBC 0-3 /HPF (0-3) 05/23/23 15:26 Ur Squamous Epith Cells NONE SEEN (<= Few) 05/23/23 15:26 Urine Bacteria Rare /HPF (None Seen) 05/23/23 15:26 Ur Microscopic Review INDICATED 05/23/23 15:26 Urine Culture Comments NOT INDICATED 05/23/23 15:26 Nasal Adenovirus (PCR) NOT DETECTED 05/23/23 07:57 Nasal B. parapertussis DNA (PCR) NOT DETECTED 05/23/23 07:57 Nasal Coronavir 229E PCR NOT DETECTED 05/23/23 07:57 Nasal Coronavir HKU1 PCR NOT DETECTED 05/23/23 07:57 Nasal Coronavir NL63 PCR NOT DETECTED 05/23/23 07:57 Nasal Coronavir OC43 PCR NOT DETECTED 05/23/23 07:57 Nasal Enterovir/Rhinovir PCR DETECTED A 05/23/23 07:57 Nasal Influenza B PCR NOT DETECTED 05/23/23 07:57 Nasal Influenza A PCR NOT DETECTED 05/23/23 07:57 Nasal Parainfluen 1 PCR NOT DETECTED 05/23/23 07:57 Nasal Parainfluen 2 PCR NOT DETECTED 05/23/23 07:57 Nasal Parainfluen 3 PCR NOT DETECTED 05/23/23 07:57 Nasal Parainfluen 4 PCR NOT DETECTED 05/23/23 07:57 Nasal RSV (PCR) NOT DETECTED 05/23/23 07:57 Nasal Screen MRSA (PCR) NEGATIVE (NEGATIVE) 05/23/23 12:10 Nasal B.pertussis DNA PCR NOT DETECTED 05/23/23 07:57 Nasal C.pneumoniae (PCR) NOT DETECTED 05/23/23 07:57 Juan Daniel Human Metapneumo PCR NOT DETECTED 05/23/23 07:57 Nasal M.pneumoniae (PCR) NOT DETECTED 05/23/23 07:57 Nasal SARS-CoV-2 (PCR) NOT DETECTED 05/23/23 07:57 Urine Opiates Screen NEGATIVE (NEGATIVE) 05/23/23 15:26 Ur Oxycodone Screen NEGATIVE (NEGATIVE) 05/23/23 15:26 Urine Methadone Screen NEGATIVE (NEGATIVE) 05/23/23 15:26 Ur Propoxyphene Screen NEGATIVE (NEGATIVE) 05/23/23 15:26 Ur Barbiturates Screen POSITIVE (NEGATIVE) H 05/23/23 15:26 Ur Tricyclics Screen NEGATIVE (NEGATIVE) 05/23/23 15:26 Ur Phencyclidine Scrn NEGATIVE (NEGATIVE) 05/23/23 15:26 Ur Amphetamine Screen NEGATIVE (NEGATIVE) 05/23/23 15:26 U Methamphetamines Scrn NEGATIVE (NEGATIVE) 05/23/23 15:26 U Benzodiazepines Scrn POSITIVE (NEGATIVE) H 05/23/23 15:26 Urine Cocaine Screen NEGATIVE (NEGATIVE) 05/23/23 15:26 U Cannabinoids Screen POSITIVE (NEGATIVE) H 05/23/23 15:26 Ethyl Alcohol 291.5 mg/dL 05/22/23 20:14
[2023-05-31] MEDS: chlordiazePOXIDE 5 MG CAPSULE PO SCH (20:27)
[2023-05-31] MEDS: THIAMINE INJ 500 MG in SODIUM CHLORIDE 0.9% 50 ML IV SCH (22:22)
[2023-06-01] MEDS: SODIUM CHLORIDE FLUSH 0.9% 10 ML SYRINGE IVP SCH ×4 (02:16→23:31)
[2023-06-01] MEDS: polyethylene glycoL 3350 17 GM PACKET PO SCH (08:18)
[2023-06-01] MEDS: POTASSIUM CHLORIDE 10 MEQ CAPSULE PO SCH (08:18)
[2023-06-01] MEDS: MAGNESIUM OXIDE 400 MG TABLET PO SCH (08:19)
[2023-06-01] MEDS: guaiFENesin 600 MG TABLET PO SCH ×2 (08:19→21:30)
[2023-06-01] MEDS: PRENATAL VITAMIN TABLET PO SCH (08:19)
[2023-06-01] MEDS: NICOTINE 14 MG PATCH TOP SCH (08:19)
[2023-06-01] MEDS: PANTOPRAZOLE 40 MG TABLET PO SCH ×2 (08:19→21:30)
[2023-06-01] MEDS: THIAMINE INJ 500 MG in SODIUM CHLORIDE 0.9% 50 ML IV SCH ×3 (08:37→21:30)
--- NOTE | 2023-06-01 19:21 | PROVIDER PROGRESS NOTE ---
Assessment/Plan - Problem List (1) Acute delirium Assessment/Plan: Yesterday 05/31, his behavior was more aggressive, he was refusing to take any pills, he was saying that we are experimenting on his body, he was trying to get up on his own, he said that a light bulb exploded in his mouth that morning, he was looking for the light bulb in the garbage can, he refused to have his vital signs taken A Telepsych eval was ordered and it was done. The impression was that he was delirious. 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 His daughtermanisha told our RN that when he went to one of his court dates on [facility], he was deemed incapacitated. 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 Plan: Cont the high-dose IV thiamine 500 mg 3 times daily for 3 days then 500 mg daily for 5 days then oral thiamine 250 mg daily, as was recommended by the Telepsych eap consultant. Keep the Haldol as needed order for agitation, which was recommended also by Telepsychiatrist. Other recommendations could also be followed if needed, such as the use of Depakote. The patient therefore needs to have decisions made for him, based on all the above. Social Work has been asked to be involved. (2) Wernicke-Korsakoff syndrome (alcoholic) Assessment/Plan: Patient has known alcohol abuse. In 2021 he was diagnosed with Wernicke's encephalopathy, and was deemed unable to make his own decisions. He needed to have a guardian. When he lived with his Sister in [facility] he was sober for a while. Recently he was drinking a pint of whiskey a day, he would go buy it himself. On lab,s he has elevated transaminases and low platelet count, consistent with his alcohol abuse and cirrhosis history. Clinically, he has no ascites on exam. He had a low calcium, magnesium and phosphorus level consistent with poor nutrition. IV fluids are stopped since he is eating and taking in liquids. He has been tapered down to off of his iv Ativan on 05/30 and CIWA protocol was stopped05/30, after 6 days of admission. Plan: Cont vitamin daily and Librium at hs. Cont Thiamine high dose as advised by TelePsych eap consultant Will order Haldol prn agitation, as also advised by TelePsych eap consultant PT and OT have stated that he is very impulsive and unsafe to leave alonem needs supervision, therefore one-to-one monitoring was ordered and will continue (3) Reversed sleep wake cycle Assessment/Plan: On his CIWA protocol he was getting alot of Ativan and we noticed he was mostly sleeping during the day. For the last several nights he has been mostly awake at night. His ex- visited and told his RN that he is always awake all night and sleeps all day. With this knowledge, he was assisted by staff and walked with his nurse in the hallway and even was able to take the stairs when walking at night, as compared to only being able to stand and pivot transfer during the daytime with PT Plan: I will not try to correct his reversed sleep cycle I ordered nighttime snacks/meals while he is awake Continue with the Librium every evening for about 2 more nights, tapering to off eventi=ually (4) Fall during this hospitalization Several nights ago, at 0145, the QUALITY CONTROL AUDITOR found him on the floor next to his bed, sitting, and SCDs were still attached to his legs. He said he "rolled out of bed and did not hit his head". Nursing did write a note about this event. A head CT was done the next morning, to check for trauma and CT had no acute findings. Since then he has complained of pain in his buttocks and his left forehead (he presented with a bruise of the left forehead from a fall before being admitted) Plan: Now that we know that he is up every night, and PT and OT have stated that he is very impulsive and unsafe to leave alone and needs supervision, therefore one-to-one monitoring was ordered and will continue (5) Tarry stool Conclusion/Plan: After presenting to the ICU, the patient had a large tarry stool. He was a poor historian and then has been too sedated to describe if he has had this before,.I ordered a guaiac of his next stool, which came back pos. I changed his Pepcid p.o. to Protonix po twice daily for treating a poss ulcer His Hgb has been stable and no further tarry stools. Plan: We will now check his hemoglobin and platelet count intermittently, not daily. Transfuse if hemoglobin drops under 7, or under 8 if he is actively bleeding. Cont to avoid any aspirin or NSAID products (6) Viral respiratory infection Conclusion/Plan: His PCR respiratory panel is positive for both enterovirus and rhinovirus. This possibly could be a cause of his hypoxia however no infiltrates are seen on chest x-ray. He is off suppl O2. His last CXR was clear. RT told me that he cannot understand how to use the incentive spirometer and is not having any benefit from his scheduled, I stopped those Plan: Cont BID Mucinex po for pulmonary toilet Need to check with our infectious disease nurse, calling malcolm, when respiratory isolation can be stopped (7) Tobacco use Conclusion/Plan: He told his RN that he has smoked half pack a day since the age of 19 Plan: Cont nicotine patch (8) Homeless single person Conclusion/Plan: Social work learned that he was doing fine living with his sister in [place] for a while until he resumed alcohol abuse. A friend bought him a vehicle to live in and his ex- is letting him live on her property (which was their previous farm property). SW has stated that he may no longer return to live with the sister, since he relapsed to alcohol abuse again. When the ex- visited, she said that he often wakes her up by knocking on the door of her home between 0200 and 0700. Plan: Shower prn His disposition and discharge plan need to be where he is supervised. That was the same recommendation given today by the Telepsych eap consultant (9) Alcohol withdrawal Impression: RESOLVED This patient is a known alcoholic with history of liver cirrhosis. He presented confused, brought in by ambulance. He was going through active alcohol withdrawal, his CIWA was 21, thus he was admitted to the ICU. Librium orally was started \\and has been decreased PT & OT have tried to work with him Since 05/28 he has been able to walk 2 laps around the hospital corridor doors and climb stairs during the shift supervisor melting Plan: Continue with the Librium every evening for about 2 more nights. - Current Meds Current Meds: Current Medications Generic Name Dose Route Start Last Admin Trade Name Freq PRN Reason Stop Dose Admin Chlordiazepoxide HCl 5 mg 05/30/23 21:00 05/31/23 20:27 Chlordiazepoxide 5 Mg Capsule PO 5 mg QPM MARY Administration Guaifenesin 600 mg 05/23/23 21:00 06/01/23 08:19 Guaifenesin 600 Mg Tablet PO 600 mg BID MARY Administration Thiamine HCl 500 mg/ Sodium 55 mls @ 100 mls/hr 05/31/23 22:00 06/01/23 14:54 Chloride IV 06/03/23 14:32 Infused TID MARY Infusion Magnesium Oxide 400 mg 05/26/23 08:00 06/01/23 08:19 Magnesium Oxide 400 Mg Tablet PO 400 mg DAILYWM MARY Administration Multi-Ingredient Ointment 1 applic 05/23/23 12:08 05/30/23 08:38 Zinc Oxide 20% Oint 30 Gm Tube TOP 1 applic PRN PRN Administration Skin Care Nicotine 1 patch 05/23/23 15:17 06/01/23 08:19 Nicotine 14 Mg Patch TOP 1 patch DAILY MARY Administration Pantoprazole Sodium 40 mg 05/24/23 21:00 06/01/23 08:19 Pantoprazole 40 Mg Tablet PO 40 mg BID MARY Administration Polyethylene Glycol 17 gm 05/30/23 09:00 06/01/23 08:18 Polyethylene Glycol 3350 17 Gm Packet PO 17 gm DAILY MARY Administration Potassium Chloride 20 meq 05/27/23 08:00 06/01/23 08:18 Potassium Chloride 10 Meq Capsule PO 20 meq DAILYWM MARY Administration Multivit/Folic Acid/Iron 1 tab 05/24/23 09:00 06/01/23 08:19 Vitamin Tablet PO 1 tab DAILY MARY Administration Sodium Chloride 10 ml 05/23/23 17:00 06/01/23 16:34 Sodium Chloride Flush 0.9% 10 Ml Syringe IVP 10 ml 0100,0900,1700 MARY Administration Sodium Chloride 10 ml 05/23/23 11:06 05/28/23 14:31 Sodium Chloride Flush 0.9% 10 Ml Syringe IVP 10 ml PRN PRN Administration NEEDED PER PROVIDER ORDERS - Lab Result Fish Bone Diagrams: 05/27/23 04:55 05/27/23 10:45 - Additional Planning My Orders: My Active Orders 05/31/23 22:00 Thiamine Inj [Vitamin B-1 Inj] 500 mg Sodium Chloride 0.9% [Normal Saline 0.9%] 50 ml IV TID 06/04/23 09:00 Thiamine Inj [Vitamin B-1 Inj] 500 mg Sodium Chloride 0.9% [Normal Saline 0.9%] 50 ml IV DAILY Subjective - Subjective Nursing Reports: Other (Refused walking in a.. did walk with PT and OT in afternoon. Has poor memory.) Objective Vital Signs: Vital Signs - 24 hr 05/31/23 05/31/23 06/01/23 22:04 23:15 08:55 Temperature 36.3 C L 36.4 C L Heart Rate [ 79 80 92 Brachial] Respiratory 16 16 Rate Blood Pressure [Left Brachial artery] Blood Pressure 103/68 105/67 99/68 [Right Brachial artery] O2 Saturation 96 94 06/01/23 15:30 Temperature 36.2 C L Heart Rate [ 97 Brachial] Respiratory 20 Rate Blood Pressure 111/75 [Left Brachial artery] Blood Pressure [Right Brachial artery] O2 Saturation 94 Oxygen O2 Source [Without Activity] Nasal cannula O2 Source Room air Oxygen Flow Rate 4 I&O (Last 24 Hrs): Intake and Output Totals x24h 05/30/23 05/31/23 06/01/23 23:59 23:59 23:59 Intake Total 1190 1631 1110 Output Total 575 Balance 1190 1056 1110 General: Alert HEENT: PERRLA, EOMI Neck: No JVD Neuro: Alert, Disoriented, Non Focal Cardiovascular: Regular rate Respiratory: No respiratory distress Abdomen: No tenderness Extremities: No clubbing, No edema - Results Results: Laboratory Results WBC 3.2 x10^3/uL (4.8-10.8) L 05/27/23 04:55 RBC 4.38 10^6/uL (4.70-6.10) L 05/27/23 04:55 Hgb 13.5 g/dL (14.0-18.0) L 05/27/23 04:55 Hct 39.6 % (42.0-52.0) L 05/27/23 04:55 MCV 90.4 fL (80.0-94.0) 05/27/23 04:55 MCH 30.8 pg (27.0-31.0) 05/27/23 04:55 MCHC 34.1 g/dL (32.0-36.0) 05/27/23 04:55 RDW 16.0 % (12.0-15.0) H 05/27/23 04:55 Plt Count 82 10^3/uL (130-450) L 05/27/23 04:55 MPV 12.2 fL (7.4-11.4) H 05/27/23 04:55 Neut # (Auto) 2.9 10^3/uL (1.5-6.6) 05/24/23 04:16 Lymph # (Auto) 0.6 10^3/uL (1.5-3.5) L 05/24/23 04:16 [place]ill # (Auto) 0.3 10^3/uL (0.0-1.0) 05/24/23 04:16 Eos # (Auto) 0.0 10^3/uL (0.0-0.7) 05/24/23 04:16 Baso # (Auto) 0.0 10^3/uL (0.0-0.1) 05/24/23 04:16 Absolute Nucleated RBC 0.00 x10^3/uL 05/24/23 04:16 Nucleated RBC % 0.0 /100WBC 05/24/23 04:16 Manual Slide Review Indicated 05/22/23 20:14 Platelet Estimate DECREASED (<130,000) (NORMAL) 05/22/23 20:14 Platelet Morphology NORMAL APPEARANCE (NORMAL) 05/22/23 20:14 RBC Morph Micro Appear NORMAL APPEARANCE (NORMAL) 05/22/23 20:14 PT 13.0 secs (9.9-12.6) H 05/24/23 04:16 INR 1.2 (0.8-1.2) 05/24/23 04:16 D-Dimer 730.4 ng/mL (200.0-255.0) H 05/23/23 07:31 VBG pH 7.463 (7.31-7.41) H 05/27/23 04:55 Ionized Calcium 1.09 mmol/L (1.15-1.33) L 05/27/23 04:55 Sodium 132 mmol/L (135-145) L 05/27/23 10:45 Potassium 4.2 mmol/L (3.5-4.5) 05/27/23 10:45 Chloride 98 mmol/L (101-111) L 05/27/23 10:45 Carbon Dioxide 28 mmol/L (21-32) 05/27/23 10:45 Anion Gap 6.0 (6-13) 05/27/23 10:45 BUN 12 mg/dL (6-20) 05/27/23 10:45 Creatinine 0.5 mg/dL (0.6-1.3) L 05/27/23 10:45 Estimated GFR (MDRD) 167 (>89) 05/27/23 10:45 Glucose 110 mg/dL (74-104) H 05/27/23 10:45 Calcium 9.1 mg/dL (8.5-10.3) 05/27/23 10:45 Phosphorus 3.7 mg/dL (3.7-7.2) 05/27/23 04:55 Magnesium 1.7 mg/dL (1.7-2.3) 05/27/23 04:55 Total Bilirubin 0.8 mg/dL (0.2-1.0) 05/27/23 10:45 AST 91 IU/L (10-42) H 05/27/23 10:45 ALT 89 IU/L (10-60) H 05/27/23 10:45 Alkaline Phosphatase 121 IU/L (42-121) 05/27/23 10:45 Ammonia 35.4 umol/L (7-35) H 05/26/23 04:29 B-Natriuretic Peptide 23 pg/mL (5-100) 05/23/23 07:31 Total Protein 6.4 g/dL (6.4-8.9) 05/27/23 10:45 Albumin 3.4 g/dL (3.2-5.5) 05/27/23 10:45 Globulin 3.0 g/dL (2.1-4.2) 05/27/23 10:45 Albumin/Globulin Ratio 1.1 (1.0-2.2) 05/27/23 10:45 Lipase 106 U/L (22-51) H 05/22/23 20:14 Urine Color DARK YELLOW 05/23/23 15:26 Urine Clarity CLEAR (CLEAR) 05/23/23 15:26 Urine pH 6.5 PH (5.0-7.5) 05/23/23 15:26 Ur Specific [place] 1.025 (1.002-1.030) 05/23/23 15:26 Urine Protein 100 mg/dL (NEGATIVE) H 05/23/23 15:26 Urine Glucose (UA) NEGATIVE mg/dL (NEGATIVE) 05/23/23 15:26 Urine Ketones 15 mg/dL (NEGATIVE) H 05/23/23 15:26 Urine Occult Blood SMALL (NEGATIVE) H 05/23/23 15:26 Urine Nitrite NEGATIVE (NEGATIVE) 05/23/23 15:26 Urine Bilirubin SMALL (NEGATIVE) H 05/23/23 15:26 Urine Urobilinogen 2 E.U./dL (NORMAL) H 05/23/23 15:26 Ur Leukocyte Esterase NEGATIVE (NEGATIVE) 05/23/23 15:26 Urine RBC 0-5 /HPF (0-5) 05/23/23 15:26 Urine WBC 0-3 /HPF (0-3) 05/23/23 15:26 Ur Squamous Epith Cells NONE SEEN (<= Few) 05/23/23 15:26 Urine Bacteria Rare /HPF (None Seen) 05/23/23 15:26 Ur Microscopic Review INDICATED 05/23/23 15:26 Urine Culture Comments NOT INDICATED 05/23/23 15:26 Nasal Adenovirus (PCR) NOT DETECTED 05/23/23 07:57 Nasal B. parapertussis DNA (PCR) NOT DETECTED 05/23/23 07:57 Nasal Coronavir 229E PCR NOT DETECTED 05/23/23 07:57 Nasal Coronavir HKU1 PCR NOT DETECTED 05/23/23 07:57 Nasal Coronavir NL63 PCR NOT DETECTED 05/23/23 07:57 Nasal Coronavir OC43 PCR NOT DETECTED 05/23/23 07:57 Nasal Enterovir/Rhinovir PCR DETECTED A 05/23/23 07:57 Nasal Influenza B PCR NOT DETECTED 05/23/23 07:57 Nasal Influenza A PCR NOT DETECTED 05/23/23 07:57 Nasal Parainfluen 1 PCR NOT DETECTED 05/23/23 07:57 Nasal Parainfluen 2 PCR NOT DETECTED 05/23/23 07:57 Nasal Parainfluen 3 PCR NOT DETECTED 05/23/23 07:57 Nasal Parainfluen 4 PCR NOT DETECTED 05/23/23 07:57 Nasal RSV (PCR) NOT DETECTED 05/23/23 07:57 Nasal Screen MRSA (PCR) NEGATIVE (NEGATIVE) 05/23/23 12:10 Nasal B.pertussis DNA PCR NOT DETECTED 05/23/23 07:57 Nasal C.pneumoniae (PCR) NOT DETECTED 05/23/23 07:57 Juan Daniel Human Metapneumo PCR NOT DETECTED 05/23/23 07:57 Nasal M.pneumoniae (PCR) NOT DETECTED 05/23/23 07:57 Nasal SARS-CoV-2 (PCR) NOT DETECTED 05/23/23 07:57 Urine Opiates Screen NEGATIVE (NEGATIVE) 05/23/23 15:26 Ur Oxycodone Screen NEGATIVE (NEGATIVE) 05/23/23 15:26 Urine Methadone Screen NEGATIVE (NEGATIVE) 05/23/23 15:26 Ur Propoxyphene Screen NEGATIVE (NEGATIVE) 05/23/23 15:26 Ur Barbiturates Screen POSITIVE (NEGATIVE) H 05/23/23 15:26 Ur Tricyclics Screen NEGATIVE (NEGATIVE) 05/23/23 15:26 Ur Phencyclidine Scrn NEGATIVE (NEGATIVE) 05/23/23 15:26 Ur Amphetamine Screen NEGATIVE (NEGATIVE) 05/23/23 15:26 U Methamphetamines Scrn NEGATIVE (NEGATIVE) 05/23/23 15:26 U Benzodiazepines Scrn POSITIVE (NEGATIVE) H 05/23/23 15:26 Urine Cocaine Screen NEGATIVE (NEGATIVE) 05/23/23 15:26 U Cannabinoids Screen POSITIVE (NEGATIVE) H 05/23/23 15:26 Ethyl Alcohol 291.5 mg/dL 05/22/23 20:14
[2023-06-01] MEDS: chlordiazePOXIDE 5 MG CAPSULE PO SCH (21:30)
[2023-06-02] MEDS: THIAMINE INJ 500 MG in SODIUM CHLORIDE 0.9% 50 ML IV SCH ×3 (06:00→21:25)
[2023-06-02] MEDS: NICOTINE 14 MG PATCH TOP SCH (08:06)
[2023-06-02] MEDS: polyethylene glycoL 3350 17 GM PACKET PO SCH (08:07)
[2023-06-02] MEDS: MAGNESIUM OXIDE 400 MG TABLET PO SCH (08:07)
[2023-06-02] MEDS: PANTOPRAZOLE 40 MG TABLET PO SCH ×2 (08:07→20:07)
[2023-06-02] MEDS: POTASSIUM CHLORIDE 10 MEQ CAPSULE PO SCH (08:07)
[2023-06-02] MEDS: guaiFENesin 600 MG TABLET PO SCH ×2 (08:07→20:07)
[2023-06-02] MEDS: PRENATAL VITAMIN TABLET PO SCH (08:07)
[2023-06-02] MEDS: SODIUM CHLORIDE FLUSH 0.9% 10 ML SYRINGE IVP SCH ×3 (08:07→23:39)
--- NOTE | 2023-06-02 13:39 | PROVIDER PROGRESS NOTE ---
Assessment/Plan - Problem List (1) Acute delirium Assessment/Plan: On 05/31, his behavior was more aggressive, he was refusing to take any pills, he was saying that we are experimenting on his body, he was trying to get up on his own, he said that a light bulb exploded in his mouth that morning, he was look ing for the light bulb in the garbage can, he refused to have his vital signs taken A Telepsych eval was ordered and it was done. The impression was that he was delirious. 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 Per court, has been deemed incapacitated. cable worker helper to obtain paperwork to confirm it. Plan: * Started high-dose IV thiamine 500 mg 3 times daily for 3 days on 05/31, to be followed by 500 mg daily for 5 days then oral thiamine 250 mg daily, as was recommended by the Telepsych sap basis consultant. * Keep the Haldol as needed order for agitation, which was recommended also by Telepsychiatrist. * Other recommendations could also be followed if needed, such as the use of Depakote. 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 Supportive care - ok to maintain current cycle. (4) Tarry stool Assessment/Plan: After presenting to the ICU, the patient had a guaiac pos. Cont Protonix po twice daily for treating a poss ulcer His Hgb has been stable and no further melena Plan: Will check his Hgb and Plt intermittently. Transfuse if hemoglobin drops under 7, or under 8 if he is actively bleeding. Cont to avoid any aspirin or NSAID products (5) Viral respiratory infection Assessment/Plan: Rhionvirus Positive on 05/23 Sx Resolved Ok to end droplet precautions - Current Meds Current Meds: Current Medications Generic Name Dose Route Start Last Admin Trade Name Freq PRN Reason Stop Dose Admin Chlordiazepoxide HCl 5 mg 05/30/23 21:00 06/01/23 21:30 Chlordiazepoxide 5 Mg Capsule PO 5 mg QPM MARY Administration Guaifenesin 600 mg 05/23/23 21:00 06/02/23 08:07 Guaifenesin 600 Mg Tablet PO 600 mg BID MARY Administration Thiamine HCl 500 mg/ Sodium 55 mls @ 100 mls/hr 05/31/23 22:00 06/02/23 06:45 Chloride IV 06/03/23 14:32 Infused TID MARY Infusion Magnesium Oxide 400 mg 05/26/23 08:00 06/02/23 08:07 Magnesium Oxide 400 Mg Tablet PO 400 mg DAILYWM MARY Administration Multi-Ingredient Ointment 1 applic 05/23/23 12:08 05/30/23 08:38 Zinc Oxide 20% Oint 30 Gm Tube TOP 1 applic PRN PRN Administration Skin Care Nicotine 1 patch 05/23/23 15:17 06/02/23 08:06 Nicotine 14 Mg Patch TOP 1 patch DAILY MARY Administration Pantoprazole Sodium 40 mg 05/24/23 21:00 06/02/23 08:07 Pantoprazole 40 Mg Tablet PO 40 mg BID MARY Administration Polyethylene Glycol 17 gm 05/30/23 09:00 06/02/23 08:07 Polyethylene Glycol 3350 17 Gm Packet PO Not Given DAILY MARY Potassium Chloride 20 meq 05/27/23 08:00 06/02/23 08:07 Potassium Chloride 10 Meq Capsule PO 20 meq DAILYWM MARY Administration Multivit/Folic Acid/Iron 1 tab 05/24/23 09:00 06/02/23 08:07 Vitamin Tablet PO 1 tab DAILY MARY Administration Sodium Chloride 10 ml 05/23/23 17:00 06/02/23 08:07 Sodium Chloride Flush 0.9% 10 Ml Syringe IVP 10 ml 0100,0900,1700 MARY Administration Sodium Chloride 10 ml 05/23/23 11:06 05/28/23 14:31 Sodium Chloride Flush 0.9% 10 Ml Syringe IVP 10 ml PRN PRN Administration NEEDED PER PROVIDER ORDERS - Lab Result Lab results reviewed: Yes Fish Bone Diagrams: 05/27/23 04:55 05/27/23 10:45 - Additional Planning Condition/Complexity: Stable Subjective - Subjective Patient Reports: Feeling Better Objective Vital Signs: Vital Signs - 24 hr 06/01/23 06/01/23 06/02/23 15:30 21:29 05:44 Temperature 36.2 C L 36.7 C 36.6 C Heart Rate [ 97 79 85 Brachial] Respiratory 20 18 16 Rate Blood Pressure 111/75 [Left Brachial artery] Blood Pressure 130/77 123/84 H [Right Brachial artery] O2 Saturation 94 97 98 06/02/23 07:24 Temperature 36.4 C L Heart Rate [ 93 Brachial] Respiratory 16 Rate Blood Pressure [Left Brachial artery] Blood Pressure 122/87 H [Right Brachial artery] O2 Saturation 98 Oxygen O2 Source [Without Activity] Nasal cannula O2 Source Room air Oxygen Flow Rate 4 I&O (Last 24 Hrs): Intake and Output Totals x24h 05/31/23 06/01/23 06/02/23 23:59 23:59 23:59 Intake Total 1631 1415 1487 Output Total 575 Balance 1056 1415 1487 General: Alert, Cooperative Neuro: Alert Cardiovascular: Regular rate Respiratory: No respiratory distress Abdomen: Normal bowel sounds - Results Results: Laboratory Results WBC 3.2 x10^3/uL (4.8-10.8) L 05/27/23 04:55 RBC 4.38 10^6/uL (4.70-6.10) L 05/27/23 04:55 Hgb 13.5 g/dL (14.0-18.0) L 05/27/23 04:55 Hct 39.6 % (42.0-52.0) L 05/27/23 04:55 MCV 90.4 fL (80.0-94.0) 05/27/23 04:55 MCH 30.8 pg (27.0-31.0) 05/27/23 04:55 MCHC 34.1 g/dL (32.0-36.0) 05/27/23 04:55 RDW 16.0 % (12.0-15.0) H 05/27/23 04:55 Plt Count 82 10^3/uL (130-450) L 05/27/23 04:55 MPV 12.2 fL (7.4-11.4) H 05/27/23 04:55 Neut # (Auto) 2.9 10^3/uL (1.5-6.6) 05/24/23 04:16 Lymph # (Auto) 0.6 10^3/uL (1.5-3.5) L 05/24/23 04:16 [place] # (Auto) 0.3 10^3/uL (0.0-1.0) 05/24/23 04:16 Eos # (Auto) 0.0 10^3/uL (0.0-0.7) 05/24/23 04:16 Baso # (Auto) 0.0 10^3/uL (0.0-0.1) 05/24/23 04:16 Absolute Nucleated RBC 0.00 x10^3/uL 05/24/23 04:16 Nucleated RBC % 0.0 /100WBC 05/24/23 04:16 Manual Slide Review Indicated 05/22/23 20:14 Platelet Estimate DECREASED (<130,000) (NORMAL) 05/22/23 20:14 Platelet Morphology NORMAL APPEARANCE (NORMAL) 05/22/23 20:14 RBC Morph Micro Appear NORMAL APPEARANCE (NORMAL) 05/22/23 20:14 PT 13.0 secs (9.9-12.6) H 05/24/23 04:16 INR 1.2 (0.8-1.2) 05/24/23 04:16 D-Dimer 730.4 ng/mL (200.0-255.0) H 05/23/23 07:31 VBG pH 7.463 (7.31-7.41) H 05/27/23 04:55 Ionized Calcium 1.09 mmol/L (1.15-1.33) L 05/27/23 04:55 Sodium 132 mmol/L (135-145) L 05/27/23 10:45 Potassium 4.2 mmol/L (3.5-4.5) 05/27/23 10:45 Chloride 98 mmol/L (101-111) L 05/27/23 10:45 Carbon Dioxide 28 mmol/L (21-32) 05/27/23 10:45 Anion Gap 6.0 (6-13) 05/27/23 10:45 BUN 12 mg/dL (6-20) 05/27/23 10:45 Creatinine 0.5 mg/dL (0.6-1.3) L 05/27/23 10:45 Estimated GFR (MDRD) 167 (>89) 05/27/23 10:45 Glucose 110 mg/dL (74-104) H 05/27/23 10:45 Calcium 9.1 mg/dL (8.5-10.3) 05/27/23 10:45 Phosphorus 3.7 mg/dL (3.7-7.2) 05/27/23 04:55 Magnesium 1.7 mg/dL (1.7-2.3) 05/27/23 04:55 Total Bilirubin 0.8 mg/dL (0.2-1.0) 05/27/23 10:45 AST 91 IU/L (10-42) H 05/27/23 10:45 ALT 89 IU/L (10-60) H 05/27/23 10:45 Alkaline Phosphatase 121 IU/L (42-121) 05/27/23 10:45 Ammonia 35.4 umol/L (7-35) H 05/26/23 04:29 B-Natriuretic Peptide 23 pg/mL (5-100) 05/23/23 07:31 Total Protein 6.4 g/dL (6.4-8.9) 05/27/23 10:45 Albumin 3.4 g/dL (3.2-5.5) 05/27/23 10:45 Globulin 3.0 g/dL (2.1-4.2) 05/27/23 10:45 Albumin/Globulin Ratio 1.1 (1.0-2.2) 05/27/23 10:45 Lipase 106 U/L (22-51) H 05/22/23 20:14 Urine Color DARK YELLOW 05/23/23 15:26 Urine Clarity CLEAR (CLEAR) 05/23/23 15:26 Urine pH 6.5 PH (5.0-7.5) 05/23/23 15:26 Ur Specific [place] 1.025 (1.002-1.030) 05/23/23 15:26 Urine Protein 100 mg/dL (NEGATIVE) H 05/23/23 15:26 Urine Glucose (UA) NEGATIVE mg/dL (NEGATIVE) 05/23/23 15:26 Urine Ketones 15 mg/dL (NEGATIVE) H 05/23/23 15:26 Urine Occult Blood SMALL (NEGATIVE) H 05/23/23 15:26 Urine Nitrite NEGATIVE (NEGATIVE) 05/23/23 15:26 Urine Bilirubin SMALL (NEGATIVE) H 05/23/23 15:26 Urine Urobilinogen 2 E.U./dL (NORMAL) H 05/23/23 15:26 Ur Leukocyte Esterase NEGATIVE (NEGATIVE) 05/23/23 15:26 Urine RBC 0-5 /HPF (0-5) 05/23/23 15:26 Urine WBC 0-3 /HPF (0-3) 05/23/23 15:26 Ur Squamous Epith Cells NONE SEEN (<= Few) 05/23/23 15:26 Urine Bacteria Rare /HPF (None Seen) 05/23/23 15:26 Ur Microscopic Review INDICATED 05/23/23 15:26 Urine Culture Comments NOT INDICATED 05/23/23 15:26 Nasal Adenovirus (PCR) NOT DETECTED 05/23/23 07:57 Nasal B. parapertussis DNA (PCR) NOT DETECTED 05/23/23 07:57 Nasal Coronavir 229E PCR NOT DETECTED 05/23/23 07:57 Nasal Coronavir HKU1 PCR NOT DETECTED 05/23/23 07:57 Nasal Coronavir NL63 PCR NOT DETECTED 05/23/23 07:57 Nasal Coronavir OC43 PCR NOT DETECTED 05/23/23 07:57 Nasal Enterovir/Rhinovir PCR DETECTED A 05/23/23 07:57 Nasal Influenza B PCR NOT DETECTED 05/23/23 07:57 Nasal Influenza A PCR NOT DETECTED 05/23/23 07:57 Nasal Parainfluen 1 PCR NOT DETECTED 05/23/23 07:57 Nasal Parainfluen 2 PCR NOT DETECTED 05/23/23 07:57 Nasal Parainfluen 3 PCR NOT DETECTED 05/23/23 07:57 Nasal Parainfluen 4 PCR NOT DETECTED 05/23/23 07:57 Nasal RSV (PCR) NOT DETECTED 05/23/23 07:57 Nasal Screen MRSA (PCR) NEGATIVE (NEGATIVE) 05/23/23 12:10 Nasal B.pertussis DNA PCR NOT DETECTED 05/23/23 07:57 Nasal C.pneumoniae (PCR) NOT DETECTED 05/23/23 07:57 [place] Human Metapneumo PCR NOT DETECTED 05/23/23 07:57 Nasal M.pneumoniae (PCR) NOT DETECTED 05/23/23 07:57 Nasal SARS-CoV-2 (PCR) NOT DETECTED 05/23/23 07:57 Urine Opiates Screen NEGATIVE (NEGATIVE) 05/23/23 15:26 Ur Oxycodone Screen NEGATIVE (NEGATIVE) 05/23/23 15:26 Urine Methadone Screen NEGATIVE (NEGATIVE) 05/23/23 15:26 Ur Propoxyphene Screen NEGATIVE (NEGATIVE) 05/23/23 15:26 Ur Barbiturates Screen POSITIVE (NEGATIVE) H 05/23/23 15:26 Ur Tricyclics Screen NEGATIVE (NEGATIVE) 05/23/23 15:26 Ur Phencyclidine Scrn NEGATIVE (NEGATIVE) 05/23/23 15:26 Ur Amphetamine Screen NEGATIVE (NEGATIVE) 05/23/23 15:26 U Methamphetamines Scrn NEGATIVE (NEGATIVE) 05/23/23 15:26 U Benzodiazepines Scrn POSITIVE (NEGATIVE) H 05/23/23 15:26 Urine Cocaine Screen NEGATIVE (NEGATIVE) 05/23/23 15:26 U Cannabinoids Screen POSITIVE (NEGATIVE) H 05/23/23 15:26 Ethyl Alcohol 291.5 mg/dL 05/22/23 20:14 ABX Reporting Has patient been on IV antibiotics over the past 48 hours?: No Current Medications - Current Medications Current Medications: Active Medications Generic Name Dose Route Start Last Admin Trade Name Freq PRN Reason Stop Dose Admin Acetaminophen 650 mg 05/31/23 10:21 Acetaminophen 325 Mg Tablet PO Q8HR PRN Pain or Fever > 38C (100.4F) Chlordiazepoxide HCl 5 mg 05/30/23 21:00 06/01/23 21:30 Chlordiazepoxide 5 Mg Capsule PO 5 mg QPM MARY Administration Guaifenesin 600 mg 05/23/23 21:00 06/02/23 08:07 Guaifenesin 600 Mg Tablet PO 600 mg BID MARY Administration Haloperidol 2 mg 05/31/23 15:57 Haloperidol 5 Mg/Ml Vial IVP Q6H PRN Agitation Thiamine HCl 500 mg/ Sodium 55 mls @ 100 mls/hr 05/31/23 22:00 06/02/23 06:45 Chloride IV 06/03/23 14:32 Infused TID MARY Infusion Thiamine HCl 500 mg/ Sodium 55 mls @ 100 mls/hr 06/04/23 09:00 Chloride IV 06/09/23 00:01 DAILY MARY Magnesium Oxide 400 mg 05/26/23 08:00 06/02/23 08:07 Magnesium Oxide 400 Mg Tablet PO 400 mg DAILYWM MARY Administration Mineral Oil 1 applic 05/23/23 12:08 Min Oil/Dimethicon/Coconut Oil 92 Gm Tube TOP PRN PRN Skin Care Multi-Ingredient Ointment 1 applic 05/23/23 12:08 05/30/23 08:38 Zinc Oxide 20% Oint 30 Gm Tube TOP 1 applic PRN PRN Administration Skin Care Nicotine 1 patch 05/23/23 15:17 06/02/23 08:06 Nicotine 14 Mg Patch TOP 1 patch DAILY MARY Administration Ondansetron HCl 4 mg 05/23/23 11:12 Ondansetron 4 Mg/2 Ml Vial IVP Q6HR PRN Nausea / Vomiting Pantoprazole Sodium 40 mg 05/24/23 21:00 06/02/23 08:07 Pantoprazole 40 Mg Tablet PO 40 mg BID MARY Administration Polyethylene Glycol 17 gm 05/30/23 09:00 06/02/23 08:07 Polyethylene Glycol 3350 17 Gm Packet PO Not Given DAILY MARY Potassium Chloride 20 meq 05/27/23 08:00 06/02/23 08:07 Potassium Chloride 10 Meq Capsule PO 20 meq DAILYWM MARY Administration Multivit/Folic Acid/Iron 1 tab 05/24/23 09:00 06/02/23 08:07 Vitamin Tablet PO 1 tab DAILY MARY Administration Sodium Chloride 10 ml 05/23/23 17:00 06/02/23 08:07 Sodium Chloride Flush 0.9% 10 Ml Syringe IVP 10 ml 0100,0900,1700 MARY Administration Sodium Chloride 10 ml 05/23/23 11:06 05/28/23 14:31 Sodium Chloride Flush 0.9% 10 Ml Syringe IVP 10 ml PRN PRN Administration NEEDED PER PROVIDER ORDERS Magnesium Oxide [Mag Ox] 400 mg PO DAILY 12/01/21 Multivitamin [Theragran] 1 each PO DAILY 12/01/21
[2023-06-02] MEDS: ACETAMINOPHEN 325 MG TABLET PO PRN (15:43)
[2023-06-02] MEDS: chlordiazePOXIDE 5 MG CAPSULE PO SCH (20:07)
[2023-06-03] MEDS: THIAMINE INJ 500 MG in SODIUM CHLORIDE 0.9% 50 ML IV SCH ×2 (05:28→14:27)
[2023-06-03] MEDS: NICOTINE 14 MG PATCH TOP SCH (08:23)
[2023-06-03] MEDS: polyethylene glycoL 3350 17 GM PACKET PO SCH (08:23)
[2023-06-03] MEDS: POTASSIUM CHLORIDE 10 MEQ CAPSULE PO SCH (08:24)
[2023-06-03] MEDS: guaiFENesin 600 MG TABLET PO SCH ×2 (08:24→20:31)
[2023-06-03] MEDS: PRENATAL VITAMIN TABLET PO SCH (08:24)
[2023-06-03] MEDS: MAGNESIUM OXIDE 400 MG TABLET PO SCH (08:24)
[2023-06-03] MEDS: PANTOPRAZOLE 40 MG TABLET PO SCH ×2 (08:24→20:31)
[2023-06-03] MEDS: SODIUM CHLORIDE FLUSH 0.9% 10 ML SYRINGE IVP SCH ×2 (08:25→17:58)
--- NOTE | 2023-06-03 10:41 | PROVIDER PROGRESS NOTE ---
Assessment/Plan - Problem List (1) Acute delirium Assessment/Plan: On 05/31, his behavior was more aggressive, he was refusing to take any pills, he was saying that we are experimenting on his body, he was trying to get up on his own, he said that a light bulb exploded in his mouth that morning, he was loo ro for the light bulb in the garbage can, he refused to have his vital signs taken A Telepsych eval was ordered and it was done. The impression was that he was delirious. 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 Per court, has been deemed incapacitated. mental health social worker to obtain paperwork to confirm it. Plan: * Started high-dose IV thiamine 500 mg 3 times daily for 3 days on 05/31, to be followed by 500 mg daily for 5 days then oral thiamine 250 mg daily, as was recommended by the Telepsych process consultant. * Keep the Haldol as needed order for agitation, which was recommended also by Telepsychiatrist. * Other recommendations could also be followed if needed, such as the use of Depakote. 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 Supportive care - ok to maintain current cycle. (4) Tarry stool Assessment/Plan: After presenting to the ICU, the patient had a guaiac pos. Cont Protonix po twice daily for treating a poss ulcer His Hgb has been stable and no further melena Plan: Will check his Hgb and Plt intermittently. Transfuse if hemoglobin drops under 7, or under 8 if he is actively bleeding. Cont to avoid any aspirin or NSAID products (5) Viral respiratory infection Assessment/Plan: Rhionvirus Positive on 05/23 Sx Resolved Ok to end droplet precautions - Current Meds Current Meds: Current Medications Generic Name Dose Route Start Last Admin Trade Name Freq PRN Reason Stop Dose Admin Acetaminophen 650 mg 05/31/23 10:21 06/02/23 15:43 Acetaminophen 325 Mg Tablet PO 650 mg Q8HR PRN Administration Pain or Fever > 38C (100.4F) Chlordiazepoxide HCl 5 mg 05/30/23 21:00 06/02/23 20:07 Chlordiazepoxide 5 Mg Capsule PO 5 mg QPM MARY Administration Guaifenesin 600 mg 05/23/23 21:00 06/03/23 08:24 Guaifenesin 600 Mg Tablet PO 600 mg BID MARY Administration Thiamine HCl 500 mg/ Sodium 55 mls @ 100 mls/hr 05/31/23 22:00 06/03/23 06:15 Chloride IV 06/03/23 14:32 Infused TID MARY Infusion Magnesium Oxide 400 mg 05/26/23 08:00 06/03/23 08:24 Magnesium Oxide 400 Mg Tablet PO 400 mg DAILYWM MARY Administration Multi-Ingredient Ointment 1 applic 05/23/23 12:08 05/30/23 08:38 Zinc Oxide 20% Oint 30 Gm Tube TOP 1 applic PRN PRN Administration Skin Care Nicotine 1 patch 05/23/23 15:17 06/03/23 08:23 Nicotine 14 Mg Patch TOP 1 patch DAILY MARY Administration Pantoprazole Sodium 40 mg 05/24/23 21:00 06/03/23 08:24 Pantoprazole 40 Mg Tablet PO 40 mg BID MARY Administration Polyethylene Glycol 17 gm 05/30/23 09:00 06/03/23 08:23 Polyethylene Glycol 3350 17 Gm Packet PO 17 gm DAILY MARY Administration Potassium Chloride 20 meq 05/27/23 08:00 06/03/23 08:24 Potassium Chloride 10 Meq Capsule PO 20 meq DAILYWM MARY Administration Multivit/Folic Acid/Iron 1 tab 05/24/23 09:00 06/03/23 08:24 Vitamin Tablet PO 1 tab DAILY MARY Administration Sodium Chloride 10 ml 05/23/23 17:00 06/03/23 08:25 Sodium Chloride Flush 0.9% 10 Ml Syringe IVP 10 ml 0100,0900,1700 MARY Administration Sodium Chloride 10 ml 05/23/23 11:06 05/28/23 14:31 Sodium Chloride Flush 0.9% 10 Ml Syringe IVP 10 ml PRN PRN Administration NEEDED PER PROVIDER ORDERS - Lab Result Lab results reviewed: Yes Fish Bone Diagrams: 05/27/23 04:55 05/27/23 10:45 - Additional Planning My Orders: My Active Orders 06/04/23 04:00 BMP - BASIC METABOLIC PANEL [CHEM] Q5D CBC W/O DIFF (HEMOGRAM) [HEME] Q5D 06/09/23 04:00 BMP - BASIC METABOLIC PANEL [CHEM] Q5D CBC W/O DIFF (HEMOGRAM) [HEME] Q5D 06/14/23 04:00 BMP - BASIC METABOLIC PANEL [CHEM] Q5D CBC W/O DIFF (HEMOGRAM) [HEME] Q5D 06/19/23 04:00 BMP - BASIC METABOLIC PANEL [CHEM] Q5D CBC W/O DIFF (HEMOGRAM) [HEME] Q5D 06/24/23 04:00 BMP - BASIC METABOLIC PANEL [CHEM] Q5D CBC W/O DIFF (HEMOGRAM) [HEME] Q5D Subjective - Subjective Patient Reports: Feeling Better Objective Vital Signs: Vital Signs - 24 hr 06/02/23 06/02/23 06/03/23 15:42 23:32 07:37 Temperature 36.2 C L 36.8 C 36.9 C Heart Rate [ 83 74 101 H Brachial] Respiratory 18 20 18 Rate Blood Pressure 107/74 112/74 124/88 H [Right Brachial artery] O2 Saturation 97 96 96 Oxygen O2 Source [Without Activity] Nasal cannula O2 Source Room air Oxygen Flow Rate 4 I&O (Last 24 Hrs): Intake and Output Totals x24h 06/01/23 06/02/23 06/03/23 23:59 23:59 23:59 Intake Total 1415 2083 927 Balance 1415 2083 927 General: Alert, Oriented x3, Cooperative Cardiovascular: Regular rate, Normal S1, Normal S2 Respiratory: Chest non-tender, No respiratory distress, Breath sounds nml Abdomen: Normal bowel sounds Extremities: No clubbing, No cyanosis, No edema - Results Results: Laboratory Results WBC 3.2 x10^3/uL (4.8-10.8) L 05/27/23 04:55 RBC 4.38 10^6/uL (4.70-6.10) L 05/27/23 04:55 Hgb 13.5 g/dL (14.0-18.0) L 05/27/23 04:55 Hct 39.6 % (42.0-52.0) L 05/27/23 04:55 MCV 90.4 fL (80.0-94.0) 05/27/23 04:55 MCH 30.8 pg (27.0-31.0) 05/27/23 04:55 MCHC 34.1 g/dL (32.0-36.0) 05/27/23 04:55 RDW 16.0 % (12.0-15.0) H 05/27/23 04:55 Plt Count 82 10^3/uL (130-450) L 05/27/23 04:55 MPV 12.2 fL (7.4-11.4) H 05/27/23 04:55 Neut # (Auto) 2.9 10^3/uL (1.5-6.6) 05/24/23 04:16 Lymph # (Auto) 0.6 10^3/uL (1.5-3.5) L 05/24/23 04:16 [place] # (Auto) 0.3 10^3/uL (0.0-1.0) 05/24/23 04:16 Eos # (Auto) 0.0 10^3/uL (0.0-0.7) 05/24/23 04:16 Baso # (Auto) 0.0 10^3/uL (0.0-0.1) 05/24/23 04:16 Absolute Nucleated RBC 0.00 x10^3/uL 05/24/23 04:16 Nucleated RBC % 0.0 /100WBC 05/24/23 04:16 Manual Slide Review Indicated 05/22/23 20:14 Platelet Estimate DECREASED (<130,000) (NORMAL) 05/22/23 20:14 Platelet Morphology NORMAL APPEARANCE (NORMAL) 05/22/23 20:14 RBC Morph Micro Appear NORMAL APPEARANCE (NORMAL) 05/22/23 20:14 PT 13.0 secs (9.9-12.6) H 05/24/23 04:16 INR 1.2 (0.8-1.2) 05/24/23 04:16 D-Dimer 730.4 ng/mL (200.0-255.0) H 05/23/23 07:31 VBG pH 7.463 (7.31-7.41) H 05/27/23 04:55 Ionized Calcium 1.09 mmol/L (1.15-1.33) L 05/27/23 04:55 Sodium 132 mmol/L (135-145) L 05/27/23 10:45 Potassium 4.2 mmol/L (3.5-4.5) 05/27/23 10:45 Chloride 98 mmol/L (101-111) L 05/27/23 10:45 Carbon Dioxide 28 mmol/L (21-32) 05/27/23 10:45 Anion Gap 6.0 (6-13) 05/27/23 10:45 BUN 12 mg/dL (6-20) 05/27/23 10:45 Creatinine 0.5 mg/dL (0.6-1.3) L 05/27/23 10:45 Estimated GFR (MDRD) 167 (>89) 05/27/23 10:45 Glucose 110 mg/dL (74-104) H 05/27/23 10:45 Calcium 9.1 mg/dL (8.5-10.3) 05/27/23 10:45 Phosphorus 3.7 mg/dL (3.7-7.2) 05/27/23 04:55 Magnesium 1.7 mg/dL (1.7-2.3) 05/27/23 04:55 Total Bilirubin 0.8 mg/dL (0.2-1.0) 05/27/23 10:45 AST 91 IU/L (10-42) H 05/27/23 10:45 ALT 89 IU/L (10-60) H 05/27/23 10:45 Alkaline Phosphatase 121 IU/L (42-121) 05/27/23 10:45 Ammonia 35.4 umol/L (7-35) H 05/26/23 04:29 B-Natriuretic Peptide 23 pg/mL (5-100) 05/23/23 07:31 Total Protein 6.4 g/dL (6.4-8.9) 05/27/23 10:45 Albumin 3.4 g/dL (3.2-5.5) 05/27/23 10:45 Globulin 3.0 g/dL (2.1-4.2) 05/27/23 10:45 Albumin/Globulin Ratio 1.1 (1.0-2.2) 05/27/23 10:45 Lipase 106 U/L (22-51) H 05/22/23 20:14 Urine Color DARK YELLOW 05/23/23 15:26 Urine Clarity CLEAR (CLEAR) 05/23/23 15:26 Urine pH 6.5 PH (5.0-7.5) 05/23/23 15:26 Ur Specific [place] 1.025 (1.002-1.030) 05/23/23 15:26 Urine Protein 100 mg/dL (NEGATIVE) H 05/23/23 15:26 Urine Glucose (UA) NEGATIVE mg/dL (NEGATIVE) 05/23/23 15:26 Urine Ketones 15 mg/dL (NEGATIVE) H 05/23/23 15:26 Urine Occult Blood SMALL (NEGATIVE) H 05/23/23 15:26 Urine Nitrite NEGATIVE (NEGATIVE) 05/23/23 15:26 Urine Bilirubin SMALL (NEGATIVE) H 05/23/23 15:26 Urine Urobilinogen 2 E.U./dL (NORMAL) H 05/23/23 15:26 Ur Leukocyte Esterase NEGATIVE (NEGATIVE) 05/23/23 15:26 Urine RBC 0-5 /HPF (0-5) 05/23/23 15:26 Urine WBC 0-3 /HPF (0-3) 05/23/23 15:26 Ur Squamous Epith Cells NONE SEEN (<= Few) 05/23/23 15:26 Urine Bacteria Rare /HPF (None Seen) 05/23/23 15:26 Ur Microscopic Review INDICATED 05/23/23 15:26 Urine Culture Comments NOT INDICATED 05/23/23 15:26 Nasal Adenovirus (PCR) NOT DETECTED 05/23/23 07:57 Nasal B. parapertussis DNA (PCR) NOT DETECTED 05/23/23 07:57 Nasal Coronavir 229E PCR NOT DETECTED 05/23/23 07:57 Nasal Coronavir HKU1 PCR NOT DETECTED 05/23/23 07:57 Nasal Coronavir NL63 PCR NOT DETECTED 05/23/23 07:57 Nasal Coronavir OC43 PCR NOT DETECTED 05/23/23 07:57 Nasal Enterovir/Rhinovir PCR DETECTED A 05/23/23 07:57 Nasal Influenza B PCR NOT DETECTED 05/23/23 07:57 Nasal Influenza A PCR NOT DETECTED 05/23/23 07:57 Nasal Parainfluen 1 PCR NOT DETECTED 05/23/23 07:57 Nasal Parainfluen 2 PCR NOT DETECTED 05/23/23 07:57 Nasal Parainfluen 3 PCR NOT DETECTED 05/23/23 07:57 Nasal Parainfluen 4 PCR NOT DETECTED 05/23/23 07:57 Nasal RSV (PCR) NOT DETECTED 05/23/23 07:57 Nasal Screen MRSA (PCR) NEGATIVE (NEGATIVE) 05/23/23 12:10 Nasal B.pertussis DNA PCR NOT DETECTED 05/23/23 07:57 Nasal C.pneumoniae (PCR) NOT DETECTED 05/23/23 07:57 [place] Daniel Human Metapneumo PCR NOT DETECTED 05/23/23 07:57 Nasal M.pneumoniae (PCR) NOT DETECTED 05/23/23 07:57 Nasal SARS-CoV-2 (PCR) NOT DETECTED 05/23/23 07:57 Urine Opiates Screen NEGATIVE (NEGATIVE) 05/23/23 15:26 Ur Oxycodone Screen NEGATIVE (NEGATIVE) 05/23/23 15:26 Urine Methadone Screen NEGATIVE (NEGATIVE) 05/23/23 15:26 Ur Propoxyphene Screen NEGATIVE (NEGATIVE) 05/23/23 15:26 Ur Barbiturates Screen POSITIVE (NEGATIVE) H 05/23/23 15:26 Ur Tricyclics Screen NEGATIVE (NEGATIVE) 05/23/23 15:26 Ur Phencyclidine Scrn NEGATIVE (NEGATIVE) 05/23/23 15:26 Ur Amphetamine Screen NEGATIVE (NEGATIVE) 05/23/23 15:26 U Methamphetamines Scrn NEGATIVE (NEGATIVE) 05/23/23 15:26 U Benzodiazepines Scrn POSITIVE (NEGATIVE) H 05/23/23 15:26 Urine Cocaine Screen NEGATIVE (NEGATIVE) 05/23/23 15:26 U Cannabinoids Screen POSITIVE (NEGATIVE) H 05/23/23 15:26 Ethyl Alcohol 291.5 mg/dL 05/22/23 20:14 ABX Reporting Has patient been on IV antibiotics over the past 48 hours?: No Current Medications - Current Medications Current Medications: Current Medications Generic Name Dose Route Start Last Admin Trade Name Freq PRN Reason Stop Dose Admin Acetaminophen 650 mg 05/31/23 10:21 06/02/23 15:43 Acetaminophen 325 Mg Tablet PO 650 mg Q8HR PRN Administration Pain or Fever > 38C (100.4F) Chlordiazepoxide HCl 5 mg 05/30/23 21:00 06/02/23 20:07 Chlordiazepoxide 5 Mg Capsule PO 5 mg QPM MARY Administration Guaifenesin 600 mg 05/23/23 21:00 06/03/23 08:24 Guaifenesin 600 Mg Tablet PO 600 mg BID MARY Administration Thiamine HCl 500 mg/ Sodium 55 mls @ 100 mls/hr 05/31/23 22:00 06/03/23 06:15 Chloride IV 06/03/23 14:32 Infused TID MARY Infusion Magnesium Oxide 400 mg 05/26/23 08:00 06/03/23 08:24 Magnesium Oxide 400 Mg Tablet PO 400 mg DAILYWM MARY Administration Multi-Ingredient Ointment 1 applic 05/23/23 12:08 05/30/23 08:38 Zinc Oxide 20% Oint 30 Gm Tube TOP 1 applic PRN PRN Administration Skin Care Nicotine 1 patch 05/23/23 15:17 06/03/23 08:23 Nicotine 14 Mg Patch TOP 1 patch DAILY MARY Administration Pantoprazole Sodium 40 mg 05/24/23 21:00 06/03/23 08:24 Pantoprazole 40 Mg Tablet PO 40 mg BID MARY Administration Polyethylene Glycol 17 gm 05/30/23 09:00 06/03/23 08:23 Polyethylene Glycol 3350 17 Gm Packet PO 17 gm DAILY MARY Administration Potassium Chloride 20 meq 05/27/23 08:00 06/03/23 08:24 Potassium Chloride 10 Meq Capsule PO 20 meq DAILYWM MARY Administration Multivit/Folic Acid/Iron 1 tab 05/24/23 09:00 06/03/23 08:24 Vitamin Tablet PO 1 tab DAILY MARY Administration Sodium Chloride 10 ml 05/23/23 17:00 06/03/23 08:25 Sodium Chloride Flush 0.9% 10 Ml Syringe IVP 10 ml 0100,0900,1700 MARY Administration Sodium Chloride 10 ml 05/23/23 11:06 05/28/23 14:31 Sodium Chloride Flush 0.9% 10 Ml Syringe IVP 10 ml PRN PRN Administration NEEDED PER PROVIDER ORDERS
[2023-06-03] MEDS: chlordiazePOXIDE 5 MG CAPSULE PO SCH (20:31)
[2023-06-04] MEDS: SODIUM CHLORIDE FLUSH 0.9% 10 ML SYRINGE IVP SCH ×3 (01:51→17:32)
[2023-06-04 05:07] LABS: HCT - HEMATOCRIT 38.3 % (42.0-52.0); HGB - HEMOGLOBIN 12.2 g/dL (14.0-18.0); MEAN CORPUSCULAR HEMOGLOBIN 29.8 pg (27.0-31.0); MEAN CORPUSCULAR HGB CONC 31.9 g/dL (32.0-36.0); MEAN CORPUSCULAR VOLUME 93.4 fL (80.0-94.0); MEAN PLATELET VOLUME 11.4 fL (7.4-11.4); RED BLOOD COUNT 4.1 10^6/uL (4.70-6.10); RED CELL DISTRIBUTION WIDTH 15.9 % (12.0-15.0); WHITE BLOOD COUNT 7.5 x10^3/uL (4.8-10.8)
[2023-06-04 05:22] LABS: CALCIUM 9.5 mg/dL (8.5-10.3); CREATININE 0.7 mg/dL (0.6-1.3); POTASSIUM 3.9 mmol/L (3.5-4.5)
[2023-06-04] MEDS: MAGNESIUM OXIDE 400 MG TABLET PO SCH (08:24)
[2023-06-04] MEDS: PANTOPRAZOLE 40 MG TABLET PO SCH ×2 (08:25→21:32)
[2023-06-04] MEDS: NICOTINE 14 MG PATCH TOP SCH (08:25)
[2023-06-04] MEDS: POTASSIUM CHLORIDE 10 MEQ CAPSULE PO SCH (08:25)
[2023-06-04] MEDS: guaiFENesin 600 MG TABLET PO SCH ×2 (08:25→21:32)
[2023-06-04] MEDS: polyethylene glycoL 3350 17 GM PACKET PO SCH (08:27)
[2023-06-04] MEDS: THIAMINE INJ 500 MG in SODIUM CHLORIDE 0.9% 50 ML IV SCH (08:28)
[2023-06-04] MEDS: PRENATAL VITAMIN TABLET PO SCH (08:36)
--- NOTE | 2023-06-04 16:37 | PROVIDER PROGRESS NOTE ---
Assessment/Plan - Problem List (1) Alcohol withdrawal delirium Assessment/Plan: (1) Acute delirium Assessment/Plan: On 05/31, his behavior was more aggressive, he was refusing to take any pills, he was saying that we are experimenting on his body, he was trying to get up on his own, he said that a light bulb exploded in his mouth that morning, he was looking for the light bulb in the garbage can, he refused to have his vital signs taken A Telepsych eval was ordered and it was done. The impression was that he was delirious. 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 Per court, has been deemed incapacitated. sand worker to obtain paperwork to confirm it. Plan: * Started high-dose IV thiamine 500 mg 3 times daily for 3 days on 05/31, to be followed by 500 mg daily for 5 days then oral thiamine 250 mg daily, as was recommended by the Telepsych employment consultant. * Keep the Haldol as needed order for agitation, which was recommended also by Telepsychiatrist. * Other recommendations could also be followed if needed, such as the use of Depakote. 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 Supportive care - ok to maintain current cycle. (4) Tarry stool Assessment/Plan: After presenting to the ICU, the patient had a guaiac pos. Cont Protonix po twice daily for treating a poss ulcer His Hgb has been stable and no further melena Plan: Will check his Hgb and Plt intermittently. Transfuse if hemoglobin drops under 7, or under 8 if he is actively bleeding. Cont to avoid any aspirin or NSAID products (5) Viral respiratory infection Assessment/Plan: Rhionvirus Positive on 05/23 Sx Resolved Ok to end droplet precautions - Current Meds Current Meds: Current Medications Generic Name Dose Route Start Last Admin Trade Name Freq PRN Reason Stop Dose Admin Acetaminophen 650 mg 05/31/23 10:21 06/02/23 15:43 Acetaminophen 325 Mg Tablet PO 650 mg Q8HR PRN Administration Pain or Fever > 38C (100.4F) Chlordiazepoxide HCl 5 mg 05/30/23 21:00 06/03/23 20:31 Chlordiazepoxide 5 Mg Capsule PO 5 mg QPM MARY Administration Guaifenesin 600 mg 05/23/23 21:00 06/04/23 08:25 Guaifenesin 600 Mg Tablet PO 600 mg BID MARY Administration Thiamine HCl 500 mg/ Sodium 55 mls @ 100 mls/hr 06/04/23 09:00 06/04/23 08:28 Chloride IV 06/09/23 00:01 100 mls/hr DAILY MARY Administration Magnesium Oxide 400 mg 05/26/23 08:00 06/04/23 08:24 Magnesium Oxide 400 Mg Tablet PO 400 mg DAILYWM MARY Administration Multi-Ingredient Ointment 1 applic 05/23/23 12:08 05/30/23 08:38 Zinc Oxide 20% Oint 30 Gm Tube TOP 1 applic PRN PRN Administration Skin Care Nicotine 1 patch 05/23/23 15:17 06/04/23 08:25 Nicotine 14 Mg Patch TOP 1 patch DAILY MARY Administration Pantoprazole Sodium 40 mg 05/24/23 21:00 06/04/23 08:25 Pantoprazole 40 Mg Tablet PO 40 mg BID MARY Administration Polyethylene Glycol 17 gm 05/30/23 09:00 06/04/23 08:27 Polyethylene Glycol 3350 17 Gm Packet PO 17 gm DAILY MARY Administration Potassium Chloride 20 meq 05/27/23 08:00 06/04/23 08:25 Potassium Chloride 10 Meq Capsule PO 20 meq DAILYWM MARY Administration Multivit/Folic Acid/Iron 1 tab 05/24/23 09:00 06/04/23 08:36 Vitamin Tablet PO 1 tab DAILY MARY Administration Sodium Chloride 10 ml 05/23/23 17:00 06/04/23 08:28 Sodium Chloride Flush 0.9% 10 Ml Syringe IVP 10 ml 0100,0900,1700 MARY Administration Sodium Chloride 10 ml 05/23/23 11:06 05/28/23 14:31 Sodium Chloride Flush 0.9% 10 Ml Syringe IVP 10 ml PRN PRN Administration NEEDED PER PROVIDER ORDERS - Lab Result Fish Bone Diagrams: 06/04/23 04:55 06/04/23 04:55 Subjective - Subjective Patient Reports: Feeling Better, Resting Comfortably Objective Vital Signs: Vital Signs - 24 hr 06/04/23 06/04/23 00:15 08:47 Temperature 36.5 C 36.4 C L Heart Rate [ 90 90 Brachial] Respiratory 20 18 Rate Blood Pressure 139/89 H 123/81 H [Right Brachial artery] O2 Saturation 97 99 Oxygen O2 Source [Without Activity] Nasal cannula O2 Source Room air Oxygen Flow Rate 4 I&O (Last 24 Hrs): Intake and Output Totals x24h 06/02/23 06/03/23 06/04/23 23:59 23:59 23:59 Intake Total 2082 2363 1200 Output Total 2 2 Balance 2082 2361 1198 General: Alert, Cooperative, No acute distress Neuro: Alert Cardiovascular: Regular rate Respiratory: No respiratory distress Abdomen: Normal bowel sounds, Soft Extremities: No edema - Results Results: Laboratory Results WBC 7.5 x10^3/uL (4.8-10.8) 06/04/23 04:55 RBC 4.10 10^6/uL (4.70-6.10) L 06/04/23 04:55 Hgb 12.2 g/dL (14.0-18.0) L 06/04/23 04:55 Hct 38.3 % (42.0-52.0) L 06/04/23 04:55 MCV 93.4 fL (80.0-94.0) 06/04/23 04:55 MCH 29.8 pg (27.0-31.0) 06/04/23 04:55 MCHC 31.9 g/dL (32.0-36.0) L 06/04/23 04:55 RDW 15.9 % (12.0-15.0) H 06/04/23 04:55 Plt Count 345 10^3/uL (130-450) 06/04/23 04:55 MPV 11.4 fL (7.4-11.4) 06/04/23 04:55 Neut # (Auto) 2.9 10^3/uL (1.5-6.6) 05/24/23 04:16 Lymph # (Auto) 0.6 10^3/uL (1.5-3.5) L 05/24/23 04:16 [place] # (Auto) 0.3 10^3/uL (0.0-1.0) 05/24/23 04:16 Eos # (Auto) 0.0 10^3/uL (0.0-0.7) 05/24/23 04:16 Baso # (Auto) 0.0 10^3/uL (0.0-0.1) 05/24/23 04:16 Absolute Nucleated RBC 0.00 x10^3/uL 05/24/23 04:16 Nucleated RBC % 0.0 /100WBC 05/24/23 04:16 Manual Slide Review Indicated 05/22/23 20:14 Platelet Estimate DECREASED (<130,000) (NORMAL) 05/22/23 20:14 Platelet Morphology NORMAL APPEARANCE (NORMAL) 05/22/23 20:14 RBC Morph Micro Appear NORMAL APPEARANCE (NORMAL) 05/22/23 20:14 PT 13.0 secs (9.9-12.6) H 05/24/23 04:16 INR 1.2 (0.8-1.2) 05/24/23 04:16 D-Dimer 730.4 ng/mL (200.0-255.0) H 05/23/23 07:31 VBG pH 7.463 (7.31-7.41) H 05/27/23 04:55 Ionized Calcium 1.09 mmol/L (1.15-1.33) L 05/27/23 04:55 Sodium 137 mmol/L (135-145) 06/04/23 04:55 Potassium 3.9 mmol/L (3.5-4.5) 06/04/23 04:55 Chloride 105 mmol/L (101-111) 06/04/23 04:55 Carbon Dioxide 26 mmol/L (21-32) 06/04/23 04:55 Anion Gap 6.0 (6-13) 06/04/23 04:55 BUN 15 mg/dL (6-20) 06/04/23 04:55 Creatinine 0.7 mg/dL (0.6-1.3) 06/04/23 04:55 Estimated GFR (MDRD) 114 (>89) 06/04/23 04:55 Glucose 109 mg/dL (74-104) H 06/04/23 04:55 Calcium 9.5 mg/dL (8.5-10.3) 06/04/23 04:55 Phosphorus 3.7 mg/dL (3.7-7.2) 05/27/23 04:55 Magnesium 1.8 mg/dL (1.7-2.3) 06/04/23 04:45 Total Bilirubin 0.8 mg/dL (0.2-1.0) 05/27/23 10:45 AST 91 IU/L (10-42) H 05/27/23 10:45 ALT 89 IU/L (10-60) H 05/27/23 10:45 Alkaline Phosphatase 121 IU/L (42-121) 05/27/23 10:45 Ammonia 35.4 umol/L (7-35) H 05/26/23 04:29 B-Natriuretic Peptide 23 pg/mL (5-100) 05/23/23 07:31 Total Protein 6.4 g/dL (6.4-8.9) 05/27/23 10:45 Albumin 3.4 g/dL (3.2-5.5) 05/27/23 10:45 Globulin 3.0 g/dL (2.1-4.2) 05/27/23 10:45 Albumin/Globulin Ratio 1.1 (1.0-2.2) 05/27/23 10:45 Lipase 106 U/L (22-51) H 05/22/23 20:14 Urine Color DARK YELLOW 05/23/23 15:26 Urine Clarity CLEAR (CLEAR) 05/23/23 15:26 Urine pH 6.5 PH (5.0-7.5) 05/23/23 15:26 Ur Specific [place] 1.025 (1.002-1.030) 05/23/23 15:26 Urine Protein 100 mg/dL (NEGATIVE) H 05/23/23 15:26 Urine Glucose (UA) NEGATIVE mg/dL (NEGATIVE) 05/23/23 15:26 Urine Ketones 15 mg/dL (NEGATIVE) H 05/23/23 15:26 Urine Occult Blood SMALL (NEGATIVE) H 05/23/23 15:26 Urine Nitrite NEGATIVE (NEGATIVE) 05/23/23 15:26 Urine Bilirubin SMALL (NEGATIVE) H 05/23/23 15:26 Urine Urobilinogen 2 E.U./dL (NORMAL) H 05/23/23 15:26 Ur Leukocyte Esterase NEGATIVE (NEGATIVE) 05/23/23 15:26 Urine RBC 0-5 /HPF (0-5) 05/23/23 15:26 Urine WBC 0-3 /HPF (0-3) 05/23/23 15:26 Ur Squamous Epith Cells NONE SEEN (<= Few) 05/23/23 15:26 Urine Bacteria Rare /HPF (None Seen) 05/23/23 15:26 Ur Microscopic Review INDICATED 05/23/23 15:26 Urine Culture Comments NOT INDICATED 05/23/23 15:26 Nasal Adenovirus (PCR) NOT DETECTED 05/23/23 07:57 Nasal B. parapertussis DNA (PCR) NOT DETECTED 05/23/23 07:57 Nasal Coronavir 229E PCR NOT DETECTED 05/23/23 07:57 Nasal Coronavir HKU1 PCR NOT DETECTED 05/23/23 07:57 Nasal Coronavir NL63 PCR NOT DETECTED 05/23/23 07:57 Nasal Coronavir OC43 PCR NOT DETECTED 05/23/23 07:57 Nasal Enterovir/Rhinovir PCR DETECTED A 05/23/23 07:57 Nasal Influenza B PCR NOT DETECTED 05/23/23 07:57 Nasal Influenza A PCR NOT DETECTED 05/23/23 07:57 Nasal Parainfluen 1 PCR NOT DETECTED 05/23/23 07:57 Nasal Parainfluen 2 PCR NOT DETECTED 05/23/23 07:57 Nasal Parainfluen 3 PCR NOT DETECTED 05/23/23 07:57 Nasal Parainfluen 4 PCR NOT DETECTED 05/23/23 07:57 Nasal RSV (PCR) NOT DETECTED 05/23/23 07:57 Nasal Screen MRSA (PCR) NEGATIVE (NEGATIVE) 05/23/23 12:10 Nasal B.pertussis DNA PCR NOT DETECTED 05/23/23 07:57 Nasal C.pneumoniae (PCR) NOT DETECTED 05/23/23 07:57 Juan Daniel Human Metapneumo PCR NOT DETECTED 05/23/23 07:57 Nasal M.pneumoniae (PCR) NOT DETECTED 05/23/23 07:57 Nasal SARS-CoV-2 (PCR) NOT DETECTED 05/23/23 07:57 Urine Opiates Screen NEGATIVE (NEGATIVE) 05/23/23 15:26 Ur Oxycodone Screen NEGATIVE (NEGATIVE) 05/23/23 15:26 Urine Methadone Screen NEGATIVE (NEGATIVE) 05/23/23 15:26 Ur Propoxyphene Screen NEGATIVE (NEGATIVE) 05/23/23 15:26 Ur Barbiturates Screen POSITIVE (NEGATIVE) H 05/23/23 15:26 Ur Tricyclics Screen NEGATIVE (NEGATIVE) 05/23/23 15:26 Ur Phencyclidine Scrn NEGATIVE (NEGATIVE) 05/23/23 15:26 Ur Amphetamine Screen NEGATIVE (NEGATIVE) 05/23/23 15:26 U Methamphetamines Scrn NEGATIVE (NEGATIVE) 05/23/23 15:26 U Benzodiazepines Scrn POSITIVE (NEGATIVE) H 05/23/23 15:26 Urine Cocaine Screen NEGATIVE (NEGATIVE) 05/23/23 15:26 U Cannabinoids Screen POSITIVE (NEGATIVE) H 05/23/23 15:26 Ethyl Alcohol 291.5 mg/dL 05/22/23 20:14 ABX Reporting Has patient been on IV antibiotics over the past 48 hours?: No
[2023-06-04] MEDS: chlordiazePOXIDE 5 MG CAPSULE PO SCH (21:32)
[2023-06-05] MEDS: SODIUM CHLORIDE FLUSH 0.9% 10 ML SYRINGE IVP SCH ×4 (07:23→22:30)
[2023-06-05] MEDS: NICOTINE 14 MG PATCH TOP SCH (08:33)
[2023-06-05] MEDS: THIAMINE INJ 500 MG in SODIUM CHLORIDE 0.9% 50 ML IV SCH (08:34)
[2023-06-05] MEDS: PANTOPRAZOLE 40 MG TABLET PO SCH ×2 (08:34→20:37)
[2023-06-05] MEDS: POTASSIUM CHLORIDE 10 MEQ CAPSULE PO SCH (08:34)
[2023-06-05] MEDS: guaiFENesin 600 MG TABLET PO SCH ×2 (08:34→20:37)
[2023-06-05] MEDS: polyethylene glycoL 3350 17 GM PACKET PO SCH (08:34)
[2023-06-05] MEDS: PRENATAL VITAMIN TABLET PO SCH (08:34)
[2023-06-05] MEDS: MAGNESIUM OXIDE 400 MG TABLET PO SCH (08:34)
--- NOTE | 2023-06-05 14:16 | PROVIDER PROGRESS NOTE ---
Assessment/Plan - Problem List (1) Alcohol withdrawal delirium Assessment/Plan: (1) Acute delirium Assessment/Plan: On 05/31, his behavior was more aggressive, he was refusing to take any pills, he was saying that we are experimenting on his body, he was trying to get up on his own, he said that a light bulb exploded in his mouth that morning, he was looking for the light bulb in the garbage can, he refused to have his vital signs taken A Telepsych eval was ordered and it was done. The impression was that he was delirious. 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 Per court, has been deemed incapacitated. script worker to obtain paperwork to confirm it. Plan: * Started high-dose IV thiamine 500 mg 3 times daily for 3 days on 05/31, to be followed by 500 mg daily for 5 days then oral thiamine 250 mg daily, as was recommended by the Telepsych sr technical sales consultant. * Keep the Haldol as needed order for agitation, which was recommended also by Telepsychiatrist. * Other recommendations could also be followed if needed, such as the use of Depakote. 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 Supportive care - ok to maintain current cycle. (4) Tarry stool Assessment/Plan: After presenting to the ICU, the patient had a guaiac pos. Cont Protonix po twice daily for treating a poss ulcer His Hgb has been stable and no further melena Plan: Will check his Hgb and Plt intermittently. Transfuse if hemoglobin drops under 7, or under 8 if he is actively bleeding. Cont to avoid any aspirin or NSAID products (5) Viral respiratory infection Assessment/Plan: Rhionvirus Positive on 05/23 Sx Resolved Ok to end droplet precautions - Current Meds Current Meds: Current Medications Generic Name Dose Route Start Last Admin Trade Name Freq PRN Reason Stop Dose Admin Acetaminophen 650 mg 05/31/23 10:21 06/02/23 15:43 Acetaminophen 325 Mg Tablet PO 650 mg Q8HR PRN Administration Pain or Fever > 38C (100.4F) Chlordiazepoxide HCl 5 mg 05/30/23 21:00 06/04/23 21:32 Chlordiazepoxide 5 Mg Capsule PO 5 mg QPM MARY Administration Guaifenesin 600 mg 05/23/23 21:00 06/05/23 08:34 Guaifenesin 600 Mg Tablet PO 600 mg BID MARY Administration Thiamine HCl 500 mg/ Sodium 55 mls @ 100 mls/hr 06/04/23 09:00 06/05/23 08:34 Chloride IV 06/09/23 00:01 100 mls/hr DAILY MARY Administration Magnesium Oxide 400 mg 05/26/23 08:00 06/05/23 08:34 Magnesium Oxide 400 Mg Tablet PO 400 mg DAILYWM MARY Administration Multi-Ingredient Ointment 1 applic 05/23/23 12:08 05/30/23 08:38 Zinc Oxide 20% Oint 30 Gm Tube TOP 1 applic PRN PRN Administration Skin Care Nicotine 1 patch 05/23/23 15:17 06/05/23 08:33 Nicotine 14 Mg Patch TOP 1 patch DAILY MARY Administration Pantoprazole Sodium 40 mg 05/24/23 21:00 06/05/23 08:34 Pantoprazole 40 Mg Tablet PO 40 mg BID MARY Administration Polyethylene Glycol 17 gm 05/30/23 09:00 06/05/23 08:34 Polyethylene Glycol 3350 17 Gm Packet PO Not Given DAILY MARY Potassium Chloride 20 meq 05/27/23 08:00 06/05/23 08:34 Potassium Chloride 10 Meq Capsule PO 20 meq DAILYWM MARY Administration Multivit/Folic Acid/Iron 1 tab 05/24/23 09:00 06/05/23 08:34 Vitamin Tablet PO 1 tab DAILY MARY Administration Sodium Chloride 10 ml 05/23/23 17:00 06/05/23 08:34 Sodium Chloride Flush 0.9% 10 Ml Syringe IVP 10 ml 0100,0900,1700 MARY Administration Sodium Chloride 10 ml 05/23/23 11:06 05/28/23 14:31 Sodium Chloride Flush 0.9% 10 Ml Syringe IVP 10 ml PRN PRN Administration NEEDED PER PROVIDER ORDERS - Lab Result Fish Bone Diagrams: 06/04/23 04:55 06/04/23 04:55 Subjective - Subjective Patient Reports: Feeling Better Objective Vital Signs: Vital Signs - 24 hr 06/04/23 06/04/23 06/05/23 17:01 23:41 08:36 Temperature 36.5 C 36.4 C L 36.4 C L Heart Rate [ 79 75 113 H Brachial] Respiratory 18 18 18 Rate Blood Pressure 123/86 H 111/82 H 104/76 [Left Brachial artery] O2 Saturation 100 99 96 Oxygen O2 Source [Without Activity] Nasal cannula O2 Source Room air Oxygen Flow Rate 4 I&O (Last 24 Hrs): Intake and Output Totals x24h 06/03/23 06/04/23 06/05/23 23:59 23:59 23:59 Intake Total 2364 1495 1280 Output Total 2 2 Balance 2362 1493 1280 General: Alert, Oriented x3, No acute distress HEENT: Atraumatic Neck: Supple Neuro: Alert, Non Focal Cardiovascular: Regular rate, Normal S1, Normal S2 Extremities: No edema Skin: No rashes - Results Results: Laboratory Results WBC 7.5 x10^3/uL (4.8-10.8) 06/04/23 04:55 RBC 4.10 10^6/uL (4.70-6.10) L 06/04/23 04:55 Hgb 12.2 g/dL (14.0-18.0) L 06/04/23 04:55 Hct 38.3 % (42.0-52.0) L 06/04/23 04:55 MCV 93.4 fL (80.0-94.0) 06/04/23 04:55 MCH 29.8 pg (27.0-31.0) 06/04/23 04:55 MCHC 31.9 g/dL (32.0-36.0) L 06/04/23 04:55 RDW 15.9 % (12.0-15.0) H 06/04/23 04:55 Plt Count 345 10^3/uL (130-450) 06/04/23 04:55 MPV 11.4 fL (7.4-11.4) 06/04/23 04:55 Neut # (Auto) 2.9 10^3/uL (1.5-6.6) 05/24/23 04:16 Lymph # (Auto) 0.6 10^3/uL (1.5-3.5) L 05/24/23 04:16 [place] # (Auto) 0.3 10^3/uL (0.0-1.0) 05/24/23 04:16 Eos # (Auto) 0.0 10^3/uL (0.0-0.7) 05/24/23 04:16 Baso # (Auto) 0.0 10^3/uL (0.0-0.1) 05/24/23 04:16 Absolute Nucleated RBC 0.00 x10^3/uL 05/24/23 04:16 Nucleated RBC % 0.0 /100WBC 05/24/23 04:16 Manual Slide Review Indicated 05/22/23 20:14 Platelet Estimate DECREASED (<130,000) (NORMAL) 05/22/23 20:14 Platelet Morphology NORMAL APPEARANCE (NORMAL) 05/22/23 20:14 RBC Morph Micro Appear NORMAL APPEARANCE (NORMAL) 05/22/23 20:14 PT 13.0 secs (9.9-12.6) H 05/24/23 04:16 INR 1.2 (0.8-1.2) 05/24/23 04:16 D-Dimer 730.4 ng/mL (200.0-255.0) H 05/23/23 07:31 VBG pH 7.463 (7.31-7.41) H 05/27/23 04:55 Ionized Calcium 1.09 mmol/L (1.15-1.33) L 05/27/23 04:55 Sodium 137 mmol/L (135-145) 06/04/23 04:55 Potassium 3.9 mmol/L (3.5-4.5) 06/04/23 04:55 Chloride 105 mmol/L (101-111) 06/04/23 04:55 Carbon Dioxide 26 mmol/L (21-32) 06/04/23 04:55 Anion Gap 6.0 (6-13) 06/04/23 04:55 BUN 15 mg/dL (6-20) 06/04/23 04:55 Creatinine 0.7 mg/dL (0.6-1.3) 06/04/23 04:55 Estimated GFR (MDRD) 114 (>89) 06/04/23 04:55 Glucose 109 mg/dL (74-104) H 06/04/23 04:55 Calcium 9.5 mg/dL (8.5-10.3) 06/04/23 04:55 Phosphorus 3.7 mg/dL (3.7-7.2) 05/27/23 04:55 Magnesium 1.8 mg/dL (1.7-2.3) 06/04/23 04:45 Total Bilirubin 0.8 mg/dL (0.2-1.0) 05/27/23 10:45 AST 91 IU/L (10-42) H 05/27/23 10:45 ALT 89 IU/L (10-60) H 05/27/23 10:45 Alkaline Phosphatase 121 IU/L (42-121) 05/27/23 10:45 Ammonia 35.4 umol/L (7-35) H 05/26/23 04:29 B-Natriuretic Peptide 23 pg/mL (5-100) 05/23/23 07:31 Total Protein 6.4 g/dL (6.4-8.9) 05/27/23 10:45 Albumin 3.4 g/dL (3.2-5.5) 05/27/23 10:45 Globulin 3.0 g/dL (2.1-4.2) 05/27/23 10:45 Albumin/Globulin Ratio 1.1 (1.0-2.2) 05/27/23 10:45 Lipase 106 U/L (22-51) H 05/22/23 20:14 Urine Color DARK YELLOW 05/23/23 15:26 Urine Clarity CLEAR (CLEAR) 05/23/23 15:26 Urine pH 6.5 PH (5.0-7.5) 05/23/23 15:26 Ur Specific [place] 1.025 (1.002-1.030) 05/23/23 15:26 Urine Protein 100 mg/dL (NEGATIVE) H 05/23/23 15:26 Urine Glucose (UA) NEGATIVE mg/dL (NEGATIVE) 05/23/23 15:26 Urine Ketones 15 mg/dL (NEGATIVE) H 05/23/23 15:26 Urine Occult Blood SMALL (NEGATIVE) H 05/23/23 15:26 Urine Nitrite NEGATIVE (NEGATIVE) 05/23/23 15:26 Urine Bilirubin SMALL (NEGATIVE) H 05/23/23 15:26 Urine Urobilinogen 2 E.U./dL (NORMAL) H 05/23/23 15:26 Ur Leukocyte Esterase NEGATIVE (NEGATIVE) 05/23/23 15:26 Urine RBC 0-5 /HPF (0-5) 05/23/23 15:26 Urine WBC 0-3 /HPF (0-3) 05/23/23 15:26 Ur Squamous Epith Cells NONE SEEN (<= Few) 05/23/23 15:26 Urine Bacteria Rare /HPF (None Seen) 05/23/23 15:26 Ur Microscopic Review INDICATED 05/23/23 15:26 Urine Culture Comments NOT INDICATED 05/23/23 15:26 Nasal Adenovirus (PCR) NOT DETECTED 05/23/23 07:57 Nasal B. parapertussis DNA (PCR) NOT DETECTED 05/23/23 07:57 Nasal Coronavir 229E PCR NOT DETECTED 05/23/23 07:57 Nasal Coronavir HKU1 PCR NOT DETECTED 05/23/23 07:57 Nasal Coronavir NL63 PCR NOT DETECTED 05/23/23 07:57 Nasal Coronavir OC43 PCR NOT DETECTED 05/23/23 07:57 Nasal Enterovir/Rhinovir PCR DETECTED A 05/23/23 07:57 Nasal Influenza B PCR NOT DETECTED 05/23/23 07:57 Nasal Influenza A PCR NOT DETECTED 05/23/23 07:57 Nasal Parainfluen 1 PCR NOT DETECTED 05/23/23 07:57 Nasal Parainfluen 2 PCR NOT DETECTED 05/23/23 07:57 Nasal Parainfluen 3 PCR NOT DETECTED 05/23/23 07:57 Nasal Parainfluen 4 PCR NOT DETECTED 05/23/23 07:57 Nasal RSV (PCR) NOT DETECTED 05/23/23 07:57 Nasal Screen MRSA (PCR) NEGATIVE (NEGATIVE) 05/23/23 12:10 Nasal B.pertussis DNA PCR NOT DETECTED 05/23/23 07:57 Nasal C.pneumoniae (PCR) NOT DETECTED 05/23/23 07:57 Juan Daniel Human Metapneumo PCR NOT DETECTED 05/23/23 07:57 Nasal M.pneumoniae (PCR) NOT DETECTED 05/23/23 07:57 Nasal SARS-CoV-2 (PCR) NOT DETECTED 05/23/23 07:57 Urine Opiates Screen NEGATIVE (NEGATIVE) 05/23/23 15:26 Ur Oxycodone Screen NEGATIVE (NEGATIVE) 05/23/23 15:26 Urine Methadone Screen NEGATIVE (NEGATIVE) 05/23/23 15:26 Ur Propoxyphene Screen NEGATIVE (NEGATIVE) 05/23/23 15:26 Ur Barbiturates Screen POSITIVE (NEGATIVE) H 05/23/23 15:26 Ur Tricyclics Screen NEGATIVE (NEGATIVE) 05/23/23 15:26 Ur Phencyclidine Scrn NEGATIVE (NEGATIVE) 05/23/23 15:26 Ur Amphetamine Screen NEGATIVE (NEGATIVE) 05/23/23 15:26 U Methamphetamines Scrn NEGATIVE (NEGATIVE) 05/23/23 15:26 U Benzodiazepines Scrn POSITIVE (NEGATIVE) H 05/23/23 15:26 Urine Cocaine Screen NEGATIVE (NEGATIVE) 05/23/23 15:26 U Cannabinoids Screen POSITIVE (NEGATIVE) H 05/23/23 15:26 Ethyl Alcohol 291.5 mg/dL 05/22/23 20:14
[2023-06-05] MEDS: chlordiazePOXIDE 5 MG CAPSULE PO SCH (20:37)
[2023-06-05] MEDS ORDERED: CALCIUM CARBONATE CHEW 500 MG TABLET PO STA (23:45)
[2023-06-06] MEDS: MAGNESIUM OXIDE 400 MG TABLET PO SCH (08:26)
[2023-06-06] MEDS: NICOTINE 14 MG PATCH TOP SCH (08:26)
[2023-06-06] MEDS: guaiFENesin 600 MG TABLET PO SCH ×2 (08:26→21:20)
[2023-06-06] MEDS: PANTOPRAZOLE 40 MG TABLET PO SCH ×2 (08:26→21:20)
[2023-06-06] MEDS: PRENATAL VITAMIN TABLET PO SCH (08:26)
[2023-06-06] MEDS: POTASSIUM CHLORIDE 10 MEQ CAPSULE PO SCH (08:26)
[2023-06-06] MEDS: polyethylene glycoL 3350 17 GM PACKET PO SCH (08:26)
[2023-06-06] MEDS: THIAMINE INJ 500 MG in SODIUM CHLORIDE 0.9% 50 ML IV SCH (08:27)
[2023-06-06] MEDS: SODIUM CHLORIDE FLUSH 0.9% 10 ML SYRINGE IVP SCH ×2 (08:27→21:20)
--- NOTE | 2023-06-06 16:40 | PROVIDER PROGRESS NOTE ---
Assessment/Plan - Problem List (1) Alcohol withdrawal delirium Assessment/Plan: (1) Alcohol withdrawal delirium Assessment/Plan: (1) Acute delirium Assessment/Plan: On 05/31, his behavior was more aggressive, he was refusing to take any pills, he was saying that we are experimenting on his body, he was trying to get up on his own, he said that a light bulb exploded in his mouth that morning, he was looking for the light bulb in the garbage can, he refused to have his vital signs taken A Telepsych eval was ordered and it was done. The impression was that he was delirious. 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 Per court, has been deemed incapacitated. handy worker to obtain paperwork to confirm it. Plan: * Started high-dose IV thiamine 500 mg 3 times daily for 3 days on 05/31, to be followed by 500 mg daily for 5 days then oral thiamine 250 mg daily, as was recommended by the Telepsych software security consultant. * Keep the Haldol as needed order for agitation, which was recommended also by Telepsychiatrist. * Other recommendations could also be followed if needed, such as the use of Depakote. 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 Supportive care - ok to maintain current cycle. (4) Tarry stool Assessment/Plan: After presenting to the ICU, the patient had a guaiac pos. Cont Protonix po twice daily for treating a poss ulcer His Hgb has been stable and no further melena Plan: Will check his Hgb and Plt intermittently. Transfuse if hemoglobin drops under 7, or under 8 if he is actively bleeding. Cont to avoid any aspirin or NSAID products (5) Viral respiratory infection Assessment/Plan: Rhionvirus Positive on 05/23 Sx Resolved Ok to end droplet precautions - Current Meds Current Meds: Current Medications Generic Name Dose Route Start Last Admin Trade Name Freq PRN Reason Stop Dose Admin Acetaminophen 650 mg 05/31/23 10:21 06/02/23 15:43 Acetaminophen 325 Mg Tablet PO 650 mg Q8HR PRN Administration Pain or Fever > 38C (100.4F) Chlordiazepoxide HCl 5 mg 05/30/23 21:00 06/05/23 20:37 Chlordiazepoxide 5 Mg Capsule PO 5 mg QPM MARY Administration Guaifenesin 600 mg 05/23/23 21:00 06/06/23 08:26 Guaifenesin 600 Mg Tablet PO 600 mg BID MARY Administration Thiamine HCl 500 mg/ Sodium 55 mls @ 100 mls/hr 06/04/23 09:00 06/06/23 09:17 Chloride IV 06/09/23 00:01 Infused DAILY MARY Infusion Magnesium Oxide 400 mg 05/26/23 08:00 06/06/23 08:26 Magnesium Oxide 400 Mg Tablet PO 400 mg DAILYWM MARY Administration Multi-Ingredient Ointment 1 applic 05/23/23 12:08 05/30/23 08:38 Zinc Oxide 20% Oint 30 Gm Tube TOP 1 applic PRN PRN Administration Skin Care Nicotine 1 patch 05/23/23 15:17 06/06/23 08:26 Nicotine 14 Mg Patch TOP 1 patch DAILY MARY Administration Pantoprazole Sodium 40 mg 05/24/23 21:00 06/06/23 08:26 Pantoprazole 40 Mg Tablet PO 40 mg BID MARY Administration Polyethylene Glycol 17 gm 05/30/23 09:00 06/06/23 08:26 Polyethylene Glycol 3350 17 Gm Packet PO 17 gm DAILY MARY Administration Potassium Chloride 20 meq 05/27/23 08:00 06/06/23 08:26 Potassium Chloride 10 Meq Capsule PO 20 meq DAILYWM MARY Administration Multivit/Folic Acid/Iron 1 tab 05/24/23 09:00 06/06/23 08:26 Vitamin Tablet PO 1 tab DAILY MARY Administration Sodium Chloride 10 ml 05/23/23 17:00 06/06/23 08:27 Sodium Chloride Flush 0.9% 10 Ml Syringe IVP 10 ml 0100,0900,1700 MARY Administration Sodium Chloride 10 ml 05/23/23 11:06 05/28/23 14:31 Sodium Chloride Flush 0.9% 10 Ml Syringe IVP 10 ml PRN PRN Administration NEEDED PER PROVIDER ORDERS - Lab Result Fish Bone Diagrams: 06/04/23 04:55 06/04/23 04:55 Subjective - Subjective Patient Reports: Resting Comfortably Objective Vital Signs: Vital Signs - 24 hr 06/06/23 06/06/23 00:00 08:32 Temperature 37.0 C 36.7 C Heart Rate [ 70 67 Brachial] Respiratory 18 18 Rate Blood Pressure 121/86 H [Left Brachial artery] Blood Pressure 121/74 [Right Brachial artery] O2 Saturation 97 93 Oxygen O2 Source [Without Activity] Nasal cannula O2 Source Room air Oxygen Flow Rate 4 I&O (Last 24 Hrs): Intake and Output Totals x24h 06/04/23 06/05/23 06/06/23 23:59 23:59 23:59 Intake Total 1495 1655 1085 Output Total 2 Balance 1493 1655 1085 General: Alert, No acute distress Neck: Supple Neuro: Alert, Non Focal Cardiovascular: Regular rate, Normal S1, Normal S2 - Results Results: Laboratory Results WBC 7.5 x10^3/uL (4.8-10.8) 06/04/23 04:55 RBC 4.10 10^6/uL (4.70-6.10) L 06/04/23 04:55 Hgb 12.2 g/dL (14.0-18.0) L 06/04/23 04:55 Hct 38.3 % (42.0-52.0) L 06/04/23 04:55 MCV 93.4 fL (80.0-94.0) 06/04/23 04:55 MCH 29.8 pg (27.0-31.0) 06/04/23 04:55 MCHC 31.9 g/dL (32.0-36.0) L 06/04/23 04:55 RDW 15.9 % (12.0-15.0) H 06/04/23 04:55 Plt Count 345 10^3/uL (130-450) 06/04/23 04:55 MPV 11.4 fL (7.4-11.4) 06/04/23 04:55 Neut # (Auto) 2.9 10^3/uL (1.5-6.6) 05/24/23 04:16 Lymph # (Auto) 0.6 10^3/uL (1.5-3.5) L 05/24/23 04:16 [place] # (Auto) 0.3 10^3/uL (0.0-1.0) 05/24/23 04:16 Eos # (Auto) 0.0 10^3/uL (0.0-0.7) 05/24/23 04:16 Baso # (Auto) 0.0 10^3/uL (0.0-0.1) 05/24/23 04:16 Absolute Nucleated RBC 0.00 x10^3/uL 05/24/23 04:16 Nucleated RBC % 0.0 /100WBC 05/24/23 04:16 Manual Slide Review Indicated 05/22/23 20:14 Platelet Estimate DECREASED (<130,000) (NORMAL) 05/22/23 20:14 Platelet Morphology NORMAL APPEARANCE (NORMAL) 05/22/23 20:14 RBC Morph Micro Appear NORMAL APPEARANCE (NORMAL) 05/22/23 20:14 PT 13.0 secs (9.9-12.6) H 05/24/23 04:16 INR 1.2 (0.8-1.2) 05/24/23 04:16 D-Dimer 730.4 ng/mL (200.0-255.0) H 05/23/23 07:31 VBG pH 7.463 (7.31-7.41) H 05/27/23 04:55 Ionized Calcium 1.09 mmol/L (1.15-1.33) L 05/27/23 04:55 Sodium 137 mmol/L (135-145) 06/04/23 04:55 Potassium 3.9 mmol/L (3.5-4.5) 06/04/23 04:55 Chloride 105 mmol/L (101-111) 06/04/23 04:55 Carbon Dioxide 26 mmol/L (21-32) 06/04/23 04:55 Anion Gap 6.0 (6-13) 06/04/23 04:55 BUN 15 mg/dL (6-20) 06/04/23 04:55 Creatinine 0.7 mg/dL (0.6-1.3) 06/04/23 04:55 Estimated GFR (MDRD) 114 (>89) 06/04/23 04:55 Glucose 109 mg/dL (74-104) H 06/04/23 04:55 Calcium 9.5 mg/dL (8.5-10.3) 06/04/23 04:55 Phosphorus 3.7 mg/dL (3.7-7.2) 05/27/23 04:55 Magnesium 1.8 mg/dL (1.7-2.3) 06/04/23 04:45 Total Bilirubin 0.8 mg/dL (0.2-1.0) 05/27/23 10:45 AST 91 IU/L (10-42) H 05/27/23 10:45 ALT 89 IU/L (10-60) H 05/27/23 10:45 Alkaline Phosphatase 121 IU/L (42-121) 05/27/23 10:45 Ammonia 35.4 umol/L (7-35) H 05/26/23 04:29 B-Natriuretic Peptide 23 pg/mL (5-100) 05/23/23 07:31 Total Protein 6.4 g/dL (6.4-8.9) 05/27/23 10:45 Albumin 3.4 g/dL (3.2-5.5) 05/27/23 10:45 Globulin 3.0 g/dL (2.1-4.2) 05/27/23 10:45 Albumin/Globulin Ratio 1.1 (1.0-2.2) 05/27/23 10:45 Lipase 106 U/L (22-51) H 05/22/23 20:14 Urine Color DARK YELLOW 05/23/23 15:26 Urine Clarity CLEAR (CLEAR) 05/23/23 15:26 Urine pH 6.5 PH (5.0-7.5) 05/23/23 15:26 Ur Specific [place] 1.025 (1.002-1.030) 05/23/23 15:26 Urine Protein 100 mg/dL (NEGATIVE) H 05/23/23 15:26 Urine Glucose (UA) NEGATIVE mg/dL (NEGATIVE) 05/23/23 15:26 Urine Ketones 15 mg/dL (NEGATIVE) H 05/23/23 15:26 Urine Occult Blood SMALL (NEGATIVE) H 05/23/23 15:26 Urine Nitrite NEGATIVE (NEGATIVE) 05/23/23 15:26 Urine Bilirubin SMALL (NEGATIVE) H 05/23/23 15:26 Urine Urobilinogen 2 E.U./dL (NORMAL) H 05/23/23 15:26 Ur Leukocyte Esterase NEGATIVE (NEGATIVE) 05/23/23 15:26 Urine RBC 0-5 /HPF (0-5) 05/23/23 15:26 Urine WBC 0-3 /HPF (0-3) 05/23/23 15:26 Ur Squamous Epith Cells NONE SEEN (<= Few) 05/23/23 15:26 Urine Bacteria Rare /HPF (None Seen) 05/23/23 15:26 Ur Microscopic Review INDICATED 05/23/23 15:26 Urine Culture Comments NOT INDICATED 05/23/23 15:26 Nasal Adenovirus (PCR) NOT DETECTED 05/23/23 07:57 Nasal B. parapertussis DNA (PCR) NOT DETECTED 05/23/23 07:57 Nasal Coronavir 229E PCR NOT DETECTED 05/23/23 07:57 Nasal Coronavir HKU1 PCR NOT DETECTED 05/23/23 07:57 Nasal Coronavir NL63 PCR NOT DETECTED 05/23/23 07:57 Nasal Coronavir OC43 PCR NOT DETECTED 05/23/23 07:57 Nasal Enterovir/Rhinovir PCR DETECTED A 05/23/23 07:57 Nasal Influenza B PCR NOT DETECTED 05/23/23 07:57 Nasal Influenza A PCR NOT DETECTED 05/23/23 07:57 Nasal Parainfluen 1 PCR NOT DETECTED 05/23/23 07:57 Nasal Parainfluen 2 PCR NOT DETECTED 05/23/23 07:57 Nasal Parainfluen 3 PCR NOT DETECTED 05/23/23 07:57 Nasal Parainfluen 4 PCR NOT DETECTED 05/23/23 07:57 Nasal RSV (PCR) NOT DETECTED 05/23/23 07:57 Nasal Screen MRSA (PCR) NEGATIVE (NEGATIVE) 05/23/23 12:10 Nasal B.pertussis DNA PCR NOT DETECTED 05/23/23 07:57 Nasal C.pneumoniae (PCR) NOT DETECTED 05/23/23 07:57 Juan Daniel Human Metapneumo PCR NOT DETECTED 05/23/23 07:57 Nasal M.pneumoniae (PCR) NOT DETECTED 05/23/23 07:57 Nasal SARS-CoV-2 (PCR) NOT DETECTED 05/23/23 07:57 Urine Opiates Screen NEGATIVE (NEGATIVE) 05/23/23 15:26 Ur Oxycodone Screen NEGATIVE (NEGATIVE) 05/23/23 15:26 Urine Methadone Screen NEGATIVE (NEGATIVE) 05/23/23 15:26 Ur Propoxyphene Screen NEGATIVE (NEGATIVE) 05/23/23 15:26 Ur Barbiturates Screen POSITIVE (NEGATIVE) H 05/23/23 15:26 Ur Tricyclics Screen NEGATIVE (NEGATIVE) 05/23/23 15:26 Ur Phencyclidine Scrn NEGATIVE (NEGATIVE) 05/23/23 15:26 Ur Amphetamine Screen NEGATIVE (NEGATIVE) 05/23/23 15:26 U Methamphetamines Scrn NEGATIVE (NEGATIVE) 05/23/23 15:26 U Benzodiazepines Scrn POSITIVE (NEGATIVE) H 05/23/23 15:26 Urine Cocaine Screen NEGATIVE (NEGATIVE) 05/23/23 15:26 U Cannabinoids Screen POSITIVE (NEGATIVE) H 05/23/23 15:26 Ethyl Alcohol 291.5 mg/dL 05/22/23 20:14 ABX Reporting Has patient been on IV antibiotics over the past 48 hours?: No
[2023-06-06] MEDS: chlordiazePOXIDE 5 MG CAPSULE PO SCH (21:21)
[2023-06-07] MEDS: SODIUM CHLORIDE FLUSH 0.9% 10 ML SYRINGE IVP SCH ×3 (01:00→21:12)
[2023-06-07] MEDS ORDERED: SODIUM CHLORIDE 0.9% 100 ML IV ONE (09:09)
[2023-06-07] MEDS: THIAMINE INJ 500 MG in SODIUM CHLORIDE 0.9% 50 ML IV SCH (09:11)
[2023-06-07] MEDS: NICOTINE 14 MG PATCH TOP SCH (09:11)
[2023-06-07] MEDS: POTASSIUM CHLORIDE 10 MEQ CAPSULE PO SCH (09:12)
[2023-06-07] MEDS: polyethylene glycoL 3350 17 GM PACKET PO SCH ×2 (09:12→09:45)
[2023-06-07] MEDS: PANTOPRAZOLE 40 MG TABLET PO SCH ×2 (09:12→21:12)
[2023-06-07] MEDS: PRENATAL VITAMIN TABLET PO SCH (09:12)
[2023-06-07] MEDS: MAGNESIUM OXIDE 400 MG TABLET PO SCH (09:13)
[2023-06-07] MEDS: guaiFENesin 600 MG TABLET PO SCH ×2 (09:13→21:11)
--- NOTE | 2023-06-07 14:48 | PROVIDER PROGRESS NOTE ---
Assessment/Plan - Problem List (1) Alcohol withdrawal delirium Assessment/Plan: (1) Acute delirium Assessment/Plan: On 05/31, his behavior was more aggressive, he was refusing to take any pills, he was saying that we are experimenting on his body, he was trying to get up on his own, he said that a light bulb exploded in his mouth that morning, he was looking for the light bulb in the garbage can, he refused to have his vital signs taken A Telepsych eval was ordered and it was done. The impression was that he was delirious. 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 Per court, has been deemed incapacitated. fiber worker to obtain paperwork to confirm it. Plan: * Started high-dose IV thiamine 500 mg 3 times daily for 3 days on 05/31, to be followed by 500 mg daily for 5 days then oral thiamine 250 mg daily, as was recommended by the Telepsych travel consultant. * Keep the Haldol as needed order for agitation, which was recommended also by Telepsychiatrist. * Other recommendations could also be followed if needed, such as the use of Depakote. 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 Supportive care - ok to maintain current cycle. (4) Tarry stool Assessment/Plan: After presenting to the ICU, the patient had a guaiac pos. Cont Protonix po twice daily for treating a poss ulcer His Hgb has been stable and no further melena Plan: Will check his Hgb and Plt intermittently. Transfuse if hemoglobin drops under 7, or under 8 if he is actively bleeding. Cont to avoid any aspirin or NSAID products (5) Viral respiratory infection Assessment/Plan: Rhionvirus Positive on 05/23 Sx Resolved Ok to end droplet precautions 6. Placement/ Discharge -Awaiting safe discharge daughter is working on getting guardianship and SS involved it this process - Current Meds Current Meds: Current Medications Generic Name Dose Route Start Last Admin Trade Name Freq PRN Reason Stop Dose Admin Acetaminophen 650 mg 05/31/23 10:21 06/02/23 15:43 Acetaminophen 325 Mg Tablet PO 650 mg Q8HR PRN Administration Pain or Fever > 38C (100.4F) Chlordiazepoxide HCl 5 mg 05/30/23 21:00 06/06/23 21:21 Chlordiazepoxide 5 Mg Capsule PO Not Given QPM MARY Guaifenesin 600 mg 05/23/23 21:00 06/07/23 09:13 Guaifenesin 600 Mg Tablet PO 600 mg BID MARY Administration Thiamine HCl 500 mg/ Sodium 55 mls @ 100 mls/hr 06/04/23 09:00 06/07/23 11:29 Chloride IV 06/09/23 00:01 Infused DAILY MARY Infusion Magnesium Oxide 400 mg 05/26/23 08:00 06/07/23 09:13 Magnesium Oxide 400 Mg Tablet PO 400 mg DAILYWM MARY Administration Multi-Ingredient Ointment 1 applic 05/23/23 12:08 05/30/23 08:38 Zinc Oxide 20% Oint 30 Gm Tube TOP 1 applic PRN PRN Administration Skin Care Nicotine 1 patch 05/23/23 15:17 06/07/23 09:11 Nicotine 14 Mg Patch TOP 1 patch DAILY MARY Administration Pantoprazole Sodium 40 mg 05/24/23 21:00 06/07/23 09:12 Pantoprazole 40 Mg Tablet PO 40 mg BID MARY Administration Polyethylene Glycol 17 gm 05/30/23 09:00 06/07/23 09:45 Polyethylene Glycol 3350 17 Gm Packet PO Not Given DAILY MARY Potassium Chloride 20 meq 05/27/23 08:00 06/07/23 09:12 Potassium Chloride 10 Meq Capsule PO 20 meq DAILYWM MARY Administration Multivit/Folic Acid/Iron 1 tab 05/24/23 09:00 06/07/23 09:12 Vitamin Tablet PO 1 tab DAILY MARY Administration Sodium Chloride 10 ml 05/23/23 17:00 06/07/23 09:13 Sodium Chloride Flush 0.9% 10 Ml Syringe IVP 10 ml 0100,0900,1700 MARY Administration Sodium Chloride 10 ml 05/23/23 11:06 05/28/23 14:31 Sodium Chloride Flush 0.9% 10 Ml Syringe IVP 10 ml PRN PRN Administration NEEDED PER PROVIDER ORDERS - Lab Result Fish Bone Diagrams: 06/04/23 04:55 06/04/23 04:55 Subjective - Subjective Patient Reports: No Complaints Objective Vital Signs: Vital Signs - 24 hr 06/06/23 06/07/23 06/07/23 17:00 00:20 08:35 Temperature 36.5 C 36.5 C 36.5 C Heart Rate [ 84 73 76 Brachial] Respiratory 18 18 18 Rate Blood Pressure 122/82 H 144/97 H 125/70 [Left Brachial artery] O2 Saturation 99 99 95 Oxygen O2 Source [Without Activity] Nasal cannula O2 Source Room air Oxygen Flow Rate 4 I&O (Last 24 Hrs): Intake and Output Totals x24h 06/05/23 06/06/23 06/07/23 23:59 23:59 23:59 Intake Total 1655 1435 1455 Balance 1655 1435 1455 General: Alert, Oriented x3, Cooperative, No acute distress HEENT: Atraumatic Neck: Supple Neuro: Disoriented (at times due to Wernicke's), Non Focal Cardiovascular: Regular rate, Normal S1, Normal S2 Respiratory: No respiratory distress - Results Results: Laboratory Results WBC 7.5 x10^3/uL (4.8-10.8) 06/04/23 04:55 RBC 4.10 10^6/uL (4.70-6.10) L 06/04/23 04:55 Hgb 12.2 g/dL (14.0-18.0) L 06/04/23 04:55 Hct 38.3 % (42.0-52.0) L 06/04/23 04:55 MCV 93.4 fL (80.0-94.0) 06/04/23 04:55 MCH 29.8 pg (27.0-31.0) 06/04/23 04:55 MCHC 31.9 g/dL (32.0-36.0) L 06/04/23 04:55 RDW 15.9 % (12.0-15.0) H 06/04/23 04:55 Plt Count 345 10^3/uL (130-450) 06/04/23 04:55 MPV 11.4 fL (7.4-11.4) 06/04/23 04:55 Neut # (Auto) 2.9 10^3/uL (1.5-6.6) 05/24/23 04:16 Lymph # (Auto) 0.6 10^3/uL (1.5-3.5) L 05/24/23 04:16 [place] # (Auto) 0.3 10^3/uL (0.0-1.0) 05/24/23 04:16 Eos # (Auto) 0.0 10^3/uL (0.0-0.7) 05/24/23 04:16 Baso # (Auto) 0.0 10^3/uL (0.0-0.1) 05/24/23 04:16 Absolute Nucleated RBC 0.00 x10^3/uL 05/24/23 04:16 Nucleated RBC % 0.0 /100WBC 05/24/23 04:16 Manual Slide Review Indicated 05/22/23 20:14 Platelet Estimate DECREASED (<130,000) (NORMAL) 05/22/23 20:14 Platelet Morphology NORMAL APPEARANCE (NORMAL) 05/22/23 20:14 RBC Morph Micro Appear NORMAL APPEARANCE (NORMAL) 05/22/23 20:14 PT 13.0 secs (9.9-12.6) H 05/24/23 04:16 INR 1.2 (0.8-1.2) 05/24/23 04:16 D-Dimer 730.4 ng/mL (200.0-255.0) H 05/23/23 07:31 VBG pH 7.463 (7.31-7.41) H 05/27/23 04:55 Ionized Calcium 1.09 mmol/L (1.15-1.33) L 05/27/23 04:55 Sodium 137 mmol/L (135-145) 06/04/23 04:55 Potassium 3.9 mmol/L (3.5-4.5) 06/04/23 04:55 Chloride 105 mmol/L (101-111) 06/04/23 04:55 Carbon Dioxide 26 mmol/L (21-32) 06/04/23 04:55 Anion Gap 6.0 (6-13) 06/04/23 04:55 BUN 15 mg/dL (6-20) 06/04/23 04:55 Creatinine 0.7 mg/dL (0.6-1.3) 06/04/23 04:55 Estimated GFR (MDRD) 114 (>89) 06/04/23 04:55 Glucose 109 mg/dL (74-104) H 06/04/23 04:55 Calcium 9.5 mg/dL (8.5-10.3) 06/04/23 04:55 Phosphorus 3.7 mg/dL (3.7-7.2) 05/27/23 04:55 Magnesium 1.8 mg/dL (1.7-2.3) 06/04/23 04:45 Total Bilirubin 0.8 mg/dL (0.2-1.0) 05/27/23 10:45 AST 91 IU/L (10-42) H 05/27/23 10:45 ALT 89 IU/L (10-60) H 05/27/23 10:45 Alkaline Phosphatase 121 IU/L (42-121) 05/27/23 10:45 Ammonia 35.4 umol/L (7-35) H 05/26/23 04:29 B-Natriuretic Peptide 23 pg/mL (5-100) 05/23/23 07:31 Total Protein 6.4 g/dL (6.4-8.9) 05/27/23 10:45 Albumin 3.4 g/dL (3.2-5.5) 05/27/23 10:45 Globulin 3.0 g/dL (2.1-4.2) 05/27/23 10:45 Albumin/Globulin Ratio 1.1 (1.0-2.2) 05/27/23 10:45 Lipase 106 U/L (22-51) H 05/22/23 20:14 Urine Color DARK YELLOW 05/23/23 15:26 Urine Clarity CLEAR (CLEAR) 05/23/23 15:26 Urine pH 6.5 PH (5.0-7.5) 05/23/23 15:26 Ur Specific [place] 1.025 (1.002-1.030) 05/23/23 15:26 Urine Protein 100 mg/dL (NEGATIVE) H 05/23/23 15:26 Urine Glucose (UA) NEGATIVE mg/dL (NEGATIVE) 05/23/23 15:26 Urine Ketones 15 mg/dL (NEGATIVE) H 05/23/23 15:26 Urine Occult Blood SMALL (NEGATIVE) H 05/23/23 15:26 Urine Nitrite NEGATIVE (NEGATIVE) 05/23/23 15:26 Urine Bilirubin SMALL (NEGATIVE) H 05/23/23 15:26 Urine Urobilinogen 2 E.U./dL (NORMAL) H 05/23/23 15:26 Ur Leukocyte Esterase NEGATIVE (NEGATIVE) 05/23/23 15:26 Urine RBC 0-5 /HPF (0-5) 05/23/23 15:26 Urine WBC 0-3 /HPF (0-3) 05/23/23 15:26 Ur Squamous Epith Cells NONE SEEN (<= Few) 05/23/23 15:26 Urine Bacteria Rare /HPF (None Seen) 05/23/23 15:26 Ur Microscopic Review INDICATED 05/23/23 15:26 Urine Culture Comments NOT INDICATED 05/23/23 15:26 Nasal Adenovirus (PCR) NOT DETECTED 05/23/23 07:57 Nasal B. parapertussis DNA (PCR) NOT DETECTED 05/23/23 07:57 Nasal Coronavir 229E PCR NOT DETECTED 05/23/23 07:57 Nasal Coronavir HKU1 PCR NOT DETECTED 05/23/23 07:57 Nasal Coronavir NL63 PCR NOT DETECTED 05/23/23 07:57 Nasal Coronavir OC43 PCR NOT DETECTED 05/23/23 07:57 Nasal Enterovir/Rhinovir PCR DETECTED A 05/23/23 07:57 Nasal Influenza B PCR NOT DETECTED 05/23/23 07:57 Nasal Influenza A PCR NOT DETECTED 05/23/23 07:57 Nasal Parainfluen 1 PCR NOT DETECTED 05/23/23 07:57 Nasal Parainfluen 2 PCR NOT DETECTED 05/23/23 07:57 Nasal Parainfluen 3 PCR NOT DETECTED 05/23/23 07:57 Nasal Parainfluen 4 PCR NOT DETECTED 05/23/23 07:57 Nasal RSV (PCR) NOT DETECTED 05/23/23 07:57 Nasal Screen MRSA (PCR) NEGATIVE (NEGATIVE) 05/23/23 12:10 Nasal B.pertussis DNA PCR NOT DETECTED 05/23/23 07:57 Nasal C.pneumoniae (PCR) NOT DETECTED 05/23/23 07:57 Juan Daniel Human Metapneumo PCR NOT DETECTED 05/23/23 07:57 Nasal M.pneumoniae (PCR) NOT DETECTED 05/23/23 07:57 Nasal SARS-CoV-2 (PCR) NOT DETECTED 05/23/23 07:57 Urine Opiates Screen NEGATIVE (NEGATIVE) 05/23/23 15:26 Ur Oxycodone Screen NEGATIVE (NEGATIVE) 05/23/23 15:26 Urine Methadone Screen NEGATIVE (NEGATIVE) 05/23/23 15:26 Ur Propoxyphene Screen NEGATIVE (NEGATIVE) 05/23/23 15:26 Ur Barbiturates Screen POSITIVE (NEGATIVE) H 05/23/23 15:26 Ur Tricyclics Screen NEGATIVE (NEGATIVE) 05/23/23 15:26 Ur Phencyclidine Scrn NEGATIVE (NEGATIVE) 05/23/23 15:26 Ur Amphetamine Screen NEGATIVE (NEGATIVE) 05/23/23 15:26 U Methamphetamines Scrn NEGATIVE (NEGATIVE) 05/23/23 15:26 U Benzodiazepines Scrn POSITIVE (NEGATIVE) H 05/23/23 15:26 Urine Cocaine Screen NEGATIVE (NEGATIVE) 05/23/23 15:26 U Cannabinoids Screen POSITIVE (NEGATIVE) H 05/23/23 15:26 Ethyl Alcohol 291.5 mg/dL 05/22/23 20:14 ABX Reporting Has patient been on IV antibiotics over the past 48 hours?: No
[2023-06-07] MEDS: chlordiazePOXIDE 5 MG CAPSULE PO SCH (21:11)
[2023-06-08] MEDS: SODIUM CHLORIDE FLUSH 0.9% 10 ML SYRINGE IVP SCH ×3 (02:22→20:33)
[2023-06-08] MEDS: POTASSIUM CHLORIDE 10 MEQ CAPSULE PO SCH (09:05)
[2023-06-08] MEDS: THIAMINE INJ 500 MG in SODIUM CHLORIDE 0.9% 50 ML IV SCH (09:06)
[2023-06-08] MEDS: PRENATAL VITAMIN TABLET PO SCH (09:06)
[2023-06-08] MEDS: MAGNESIUM OXIDE 400 MG TABLET PO SCH (09:06)
[2023-06-08] MEDS: PANTOPRAZOLE 40 MG TABLET PO SCH ×2 (09:06→20:33)
[2023-06-08] MEDS: guaiFENesin 600 MG TABLET PO SCH ×2 (09:06→20:33)
[2023-06-08] MEDS: NICOTINE 14 MG PATCH TOP SCH (09:06)
[2023-06-08] MEDS: polyethylene glycoL 3350 17 GM PACKET PO SCH (09:07)
--- NOTE | 2023-06-08 14:51 | PROVIDER PROGRESS NOTE ---
Subjective - Prog Note Date Prog Note Date: 06/08/23 Prog Note Time: 14:50 - Subjective Subjective: I am the hospitalist coming on service. Patient was admitted May 23. He has a previous history of alcohol abuse and alcohol withdrawal. His last admission with this was quite prolonged from November through December 2021. With that admission telemetry psych evaluation was done and he was deemed not competent to make decisions for himself. He stayed in the hospital quite some time as we tried to establish guardianship. He was finally discharged in the care of his daughter and then was going to go live with his sister in [place]. He had been living in [place], clean and sober since discharge of February 2022. He had to come back to [facility] for a court date. Was staying with his daughter. And then he had a relapse. Daughter was not able to keep him at her home because she has small children at home. A friend of his helped him by car and he has been homeless, living in a car. He has not been clean and sober. He was brought to the emergency room because of confusion. He had elevated alcohol level in the ER. While in the ER, was there long enough, that he went into withdrawal with persistent confusion, ataxia, weakness and tremulousness. He was started on Ativan and oxygen. His PCR was positive for enterovirus and rhinovirus. CT of the angiogram did not show any pulmonary embolus and he had no infiltrates. The patient has been here since May 23. He has gradually sobered up. Is no longer in withdrawal. He is evaluated by telepsych again. They feel that he may have elements of Warnicke's encephalopathy and recommended high-dose thiamine. As such she has been on high-dose thiamine and that is to stop June 05. Then to be on oral thiamine. He is supposed to stay on the Haldol as needed for agitation. If this does not work we could use Depakote. Social work and case management are working on finding appropriate disposition for this patient. Repeat evaluation shows him to be with diminished cognitive ability. He has no short-term recall at all. Current Medications - Current Medications Current Medications: Active Medications Acetaminophen (Acetaminophen 325 Mg Tablet) 650 mg PO Q8HR PRN PRN Reason: Pain or Fever > 38C (100.4F) Last Admin: 06/02/23 15:43 Dose: 650 mg Chlordiazepoxide HCl (Chlordiazepoxide 5 Mg Capsule) 5 mg PO QPM [facility] Last Admin: 06/07/23 21:11 Dose: 5 mg Guaifenesin (Guaifenesin 600 Mg Tablet) 600 mg PO BID [facility] Last Admin: 06/08/23 09:06 Dose: 600 mg Haloperidol (Haloperidol 5 Mg/Ml Vial) 2 mg IVP Q6H PRN PRN Reason: Agitation Thiamine HCl 500 mg/ Sodium (Chloride) 55 mls @ 100 mls/hr IV DAILY [facility] Stop: 06/09/23 00:01 Last Infusion: 06/08/23 11:08 Dose: Infused Magnesium Oxide (Magnesium Oxide 400 Mg Tablet) 400 mg PO DAILYWM [facility] Last Admin: 06/08/23 09:06 Dose: 400 mg Mineral Oil (Min Oil/Dimethicon/Coconut Oil 92 Gm Tube) 1 applic TOP PRN PRN PRN Reason: Skin Care Multi-Ingredient Ointment (Zinc Oxide 20% Oint 30 Gm Tube) 1 applic TOP PRN PRN PRN Reason: Skin Care Last Admin: 05/30/23 08:38 Dose: 1 applic Nicotine (Nicotine 14 Mg Patch) 1 patch TOP DAILY [facility] Last Admin: 06/08/23 09:06 Dose: 1 patch Ondansetron HCl (Ondansetron 4 Mg/2 Ml Vial) 4 mg IVP Q6HR PRN PRN Reason: Nausea / Vomiting Pantoprazole Sodium (Pantoprazole 40 Mg Tablet) 40 mg PO BID [facility] Last Admin: 06/08/23 09:06 Dose: 40 mg Polyethylene Glycol (Polyethylene Glycol 3350 17 Gm Packet) 17 gm PO DAILY [facility] Last Admin: 06/08/23 09:07 Dose: Not Given Potassium Chloride (Potassium Chloride 10 Meq Capsule) 20 meq PO DAILYWM [facility] Last Admin: 06/08/23 09:05 Dose: 20 meq Multivit/Folic Acid/Iron ( Vitamin Tablet) 1 tab PO DAILY [facility] Last Admin: 06/08/23 09:06 Dose: 1 tab Sodium Chloride (Sodium Chloride Flush 0.9% 10 Ml Syringe) 10 ml IVP 0100,0900,1700 [facility] Last Admin: 06/08/23 09:07 Dose: 10 ml Sodium Chloride (Sodium Chloride Flush 0.9% 10 Ml Syringe) 10 ml IVP PRN PRN PRN Reason: NEEDED PER PROVIDER ORDERS Last Admin: 05/28/23 14:31 Dose: 10 ml Magnesium Oxide [Mag Ox] 400 mg PO DAILY 12/01/21 Multivitamin [Theragran] 1 each PO DAILY 12/01/21 Objective - Vital Signs/Intake & Output Reviewed Vital Signs: Yes Vital Signs: Vital Signs x48h Temp Pulse Resp BP Pulse Ox 06/08/23 13:40 36.5 C 81 18 122/84 H 99 06/08/23 07:57 36.4 C L 95 18 105/75 97 Intake & Output: Intake & Output 06/05/23 06/06/23 06/07/23 06/08/23 23:59 23:59 23:59 23:59 Intake Total 1655 1435 1925 955 Balance 1655 1435 1925 955 - Objective General Appearance: positive: Alert, Other (Pleasant, cooperative middle-aged white male. Vee and mustache. Will get up to leave her room and walk in the hallways. Also is helpful with nursing and kitchen staff by taking his own tray back to the carrier that takes the dirty dishes back to the kitchen. He is joking and laughing) Eyes Bilateral: positive: PERRL, EOMI ENT: positive: Pharynx nml, No signs of dehydration Neck: positive: No JVD. negative: Stiff neck Respiratory: positive: No respiratory distress. negative: Wheezes, Rales, Rhonchi Cardiovascular: positive: Regular rate & rhythm Abdomen: positive: Non-tender, No organomegaly, Nml bowel sounds, No distention Skin: positive: Warm, Dry Extremities: positive: No pedal edema Neurologic/Psychiatric: positive: Oriented x3 (But no short-term memory. I saw him twice today and he did not remember meeting me the first time nor did he remember me the second time when I would back a third time), CN's nml (2-12), Motor nml - Lab Results Fish Bones: 06/04/23 04:55 06/04/23 04:55 Assessment/Plan - Problem List (1) Alcohol withdrawal delirium Impression: On 05/31, his behavior was more aggressive, he was refusing to take any pills, he was saying that we are experimenting on his body, he was trying to get up on his own, he said that a light bulb exploded in his mouth that morning, he was looking for the light bulb in the garbage can, he refused to have his vital signs taken A Telepsych eval was ordered and it was done. The impression was that he was delirious. 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 Per court, has been deemed incapacitated. clinical social worker to obtain paperwork to confirm it. Plan: * Started high-dose IV thiamine 500 mg 3 times daily for 3 days on 05/31-06/02, to be followed by 500 mg daily for 5 days Ju- then oral thiamine 250 mg daily as of today, June 08, as was recommended by the Telepsych consultant in ergonomics and safety. * Keep the Haldol as needed order for agitation, which was recommended also by Telepsychiatrist. * Other recommendations could also be followed if needed, such as the use of Depakote. There are no changes to this plan as of today. The patient is medically stable, clear. We are just awaiting placement. 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 Supportive care - ok to maintain current cycle. (4) Tarry stool Assessment/Plan: After presenting to the ICU, the patient had a guaiac pos. stool Cont Protonix po twice daily for treating a poss ulcer His Hgb has been stable and no further melena Plan: Will check his Hgb and Plt intermittently. Transfuse if hemoglobin drops under 7, or under 8 if he is actively bleeding. Cont to avoid any aspirin or NSAID products (5) Viral respiratory infection Assessment/Plan: Rhionvirus Positive on 05/23 Sx Resolved Ok to end droplet precautions 6. Placement/ Discharge -Awaiting safe discharge daughter is working on getting guardianship and SS involved it this process
[2023-06-08] MEDS: chlordiazePOXIDE 5 MG CAPSULE PO SCH (20:33)
[2023-06-09] MEDS: SODIUM CHLORIDE FLUSH 0.9% 10 ML SYRINGE IVP SCH ×3 (04:39→21:37)
[2023-06-09 05:34] LABS: HCT - HEMATOCRIT 40.7 % (42.0-52.0); HGB - HEMOGLOBIN 13.2 g/dL (14.0-18.0); MEAN CORPUSCULAR HEMOGLOBIN 30.6 pg (27.0-31.0); MEAN CORPUSCULAR HGB CONC 32.4 g/dL (32.0-36.0); MEAN CORPUSCULAR VOLUME 94.2 fL (80.0-94.0); MEAN PLATELET VOLUME 12.1 fL (7.4-11.4); RED BLOOD COUNT 4.32 10^6/uL (4.70-6.10); RED CELL DISTRIBUTION WIDTH 15.8 % (12.0-15.0); WHITE BLOOD COUNT 7.1 x10^3/uL (4.8-10.8)
[2023-06-09 05:47] LABS: CALCIUM 9.3 mg/dL (8.5-10.3); CREATININE 0.7 mg/dL (0.6-1.3)
[2023-06-09] MEDS: NICOTINE 14 MG PATCH TOP SCH (08:16)
[2023-06-09] MEDS: PANTOPRAZOLE 40 MG TABLET PO SCH ×2 (08:16→21:37)
[2023-06-09] MEDS: POTASSIUM CHLORIDE 10 MEQ CAPSULE PO SCH (08:16)
[2023-06-09] MEDS: PRENATAL VITAMIN TABLET PO SCH (08:16)
[2023-06-09] MEDS: guaiFENesin 600 MG TABLET PO SCH ×2 (08:16→21:37)
[2023-06-09] MEDS: MAGNESIUM OXIDE 400 MG TABLET PO SCH (08:16)
[2023-06-09] MEDS: polyethylene glycoL 3350 17 GM PACKET PO SCH (08:16)
[2023-06-09] MEDS: THIAMINE 100 MG TABLET PO SCH (10:39)
--- NOTE | 2023-06-09 17:55 | PROVIDER PROGRESS NOTE ---
Progress Note June 09, 2023 5:53 PM Patient is asleep. But wakens easily this morning and this afternoon. He says nothing is going on. He denies any chest pain, palpitations, shortness of breath. He is walking in the hallways, dressing himself, feeding himself. As acute withdrawal has resolved, there have been no behavioral issues. Active Medications Acetaminophen (Acetaminophen 325 Mg Tablet) 650 mg PO Q8HR PRN PRN Reason: Pain or Fever > 38C (100.4F) Last Admin: 06/02/23 15:43 Dose: 650 mg Chlordiazepoxide HCl (Chlordiazepoxide 5 Mg Capsule) 5 mg PO QPM [facility] Last Admin: 06/08/23 20:33 Dose: 5 mg Guaifenesin (Guaifenesin 600 Mg Tablet) 600 mg PO BID [facility] Last Admin: 06/09/23 08:16 Dose: 600 mg Haloperidol (Haloperidol 5 Mg/Ml Vial) 2 mg IVP Q6H PRN PRN Reason: Agitation Magnesium Oxide (Magnesium Oxide 400 Mg Tablet) 400 mg PO DAILYWM [facility] Last Admin: 06/09/23 08:16 Dose: 400 mg Mineral Oil (Min Oil/Dimethicon/Coconut Oil 92 Gm Tube) 1 applic TOP PRN PRN PRN Reason: Skin Care Multi-Ingredient Ointment (Zinc Oxide 20% Oint 30 Gm Tube) 1 applic TOP PRN PRN PRN Reason: Skin Care Last Admin: 05/30/23 08:38 Dose: 1 applic Nicotine (Nicotine 14 Mg Patch) 1 patch TOP DAILY [facility] Last Admin: 06/09/23 08:16 Dose: 1 patch Ondansetron HCl (Ondansetron 4 Mg/2 Ml Vial) 4 mg IVP Q6HR PRN PRN Reason: Nausea / Vomiting Pantoprazole Sodium (Pantoprazole 40 Mg Tablet) 40 mg PO BID [facility] Last Admin: 06/09/23 08:16 Dose: 40 mg Polyethylene Glycol (Polyethylene Glycol 3350 17 Gm Packet) 17 gm PO DAILY [facility] Last Admin: 06/09/23 08:16 Dose: 17 gm Potassium Chloride (Potassium Chloride 10 Meq Capsule) 20 meq PO DAILYWM [facility] Last Admin: 06/09/23 08:16 Dose: 20 meq Multivit/Folic Acid/Iron ( Vitamin Tablet) 1 tab PO DAILY [facility] Last Admin: 06/09/23 08:16 Dose: 1 tab Sodium Chloride (Sodium Chloride Flush 0.9% 10 Ml Syringe) 10 ml IVP 0100,0900,1700 [facility] Last Admin: 06/09/23 08:17 Dose: 10 ml Sodium Chloride (Sodium Chloride Flush 0.9% 10 Ml Syringe) 10 ml IVP PRN PRN PRN Reason: NEEDED PER PROVIDER ORDERS Last Admin: 05/28/23 14:31 Dose: 10 ml Thiamine HCl (Thiamine 100 Mg Tablet) 250 mg PO DAILY [facility] Last Admin: 06/09/23 10:39 Dose: 250 mg Magnesium Oxide [Mag Ox] 400 mg PO DAILY 12/01/21 Multivitamin [Theragran] 1 each PO DAILY 12/01/21 Exam: Temperature is 36.5. Heart rate 80. Blood pressure 116/65. Respirations 18. 97% on room air. He is 5 foot 9 inches tall, 64.5 kg. Thin, alert, gentleman. No short-term recall. I reintroduced myself every day and every day he does not remember who I am. This is only been for 3 days. Neck is supple. Lungs are clear. Regular rate and rhythm. Abdomen soft nontender. Extremities without any edema. When he walks the hallway there is no ataxia. I watched him get dressed this morning and he is able to button up shirt, pull up his pants, put on his shoes without any difficulty. labs: BMP is normal today. CBC is stable. White cell count is normal. Hemoglobin is 13.2. - Problem List (1) Alcohol withdrawal delirium Impression: On 05/31, his behavior was more aggressive, he was refusing to take any pills, he was saying that we are experimenting on his body, he was trying to get up on his own, he said that a light bulb exploded in his mouth that morning, he was looking for the light bulb in the garbage can, he refused to have his vital signs taken A Telepsych eval was ordered and it was done. The impression was that he was delirious. 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 Per court, has been deemed incapacitated. biofuels plant construction worker to obtain paperwork to confirm it. Plan: * Started high-dose IV thiamine 500 mg 3 times daily for 3 days on 05/31-06/02, to be followed by 500 mg daily for 5 days Juy - I will start oral thiamine 250 mg daily as of today, June 09, as was recommended by the Telepsych dietitian consultant. * Keep the Haldol as needed order for agitation, which was recommended also by Telepsychiatrist. * Other recommendations could also be followed if needed, such as the use of Depakote. There are no changes to this plan as of today. The patient is medically stable, clear. We are just awaiting placement. 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 Supportive care - ok to maintain current cycle. (4) Tarry stool Assessment/Plan: After presenting to the ICU, the patient had a guaiac pos. stool Cont Protonix po twice daily for treating a poss ulcer His Hgb has been stable and no further melena Plan: Will check his Hgb and Plt intermittently. Transfuse if hemoglobin drops under 7, or under 8 if he is actively bleeding. Cont to avoid any aspirin or NSAID products (5) Viral respiratory infection Assessment/Plan: Rhionvirus Positive on 05/23 Sx Resolved Ok to end droplet precautions 6. Placement/ Discharge -Awaiting safe discharge daughter is working on getting guardianship and SS involved it this process
[2023-06-09] MEDS: chlordiazePOXIDE 5 MG CAPSULE PO SCH (21:37)
[2023-06-10] MEDS: SODIUM CHLORIDE FLUSH 0.9% 10 ML SYRINGE IVP SCH ×3 (01:15→15:40)
[2023-06-10] MEDS: NICOTINE 14 MG PATCH TOP SCH (08:39)
[2023-06-10] MEDS: PRENATAL VITAMIN TABLET PO SCH (08:40)
[2023-06-10] MEDS: THIAMINE 100 MG TABLET PO SCH (08:40)
[2023-06-10] MEDS: guaiFENesin 600 MG TABLET PO SCH ×2 (08:40→20:09)
[2023-06-10] MEDS: PANTOPRAZOLE 40 MG TABLET PO SCH ×2 (08:40→20:09)
[2023-06-10] MEDS: MAGNESIUM OXIDE 400 MG TABLET PO SCH (08:40)
[2023-06-10] MEDS: POTASSIUM CHLORIDE 10 MEQ CAPSULE PO SCH (08:40)
[2023-06-10] MEDS: polyethylene glycoL 3350 17 GM PACKET PO SCH (08:41)
--- NOTE | 2023-06-10 12:49 | PROVIDER PROGRESS NOTE ---
Progress Note June 10, 2023 12:46 PM Awake, alert. Very engaging personality. He shows me his "vest". The nurses have cut down the patient yellow gown that we use for infection control and made a vest out of it. On the back of it it is a yellow jacket drawn on it. He is very proud of it. Ambulating in the hallways, his room. Cooperative. Dressing himself, feeding himself. Active Medications Acetaminophen (Acetaminophen 325 Mg Tablet) 650 mg PO Q8HR PRN PRN Reason: Pain or Fever > 38C (100.4F) Last Admin: 06/02/23 15:43 Dose: 650 mg Chlordiazepoxide HCl (Chlordiazepoxide 5 Mg Capsule) 5 mg PO QPM [facility] Last Admin: 06/09/23 21:37 Dose: 5 mg Guaifenesin (Guaifenesin 600 Mg Tablet) 600 mg PO BID [facility] Last Admin: 06/10/23 08:40 Dose: 600 mg Haloperidol (Haloperidol 5 Mg/Ml Vial) 2 mg IVP Q6H PRN PRN Reason: Agitation Magnesium Oxide (Magnesium Oxide 400 Mg Tablet) 400 mg PO DAILYWM [facility] Last Admin: 06/10/23 08:40 Dose: 400 mg Mineral Oil (Min Oil/Dimethicon/Coconut Oil 92 Gm Tube) 1 applic TOP PRN PRN PRN Reason: Skin Care Multi-Ingredient Ointment (Zinc Oxide 20% Oint 30 Gm Tube) 1 applic TOP PRN PRN PRN Reason: Skin Care Last Admin: 05/30/23 08:38 Dose: 1 applic Nicotine (Nicotine 14 Mg Patch) 1 patch TOP DAILY [facility] Last Admin: 06/10/23 08:39 Dose: 1 patch Ondansetron HCl (Ondansetron 4 Mg/2 Ml Vial) 4 mg IVP Q6HR PRN PRN Reason: Nausea / Vomiting Pantoprazole Sodium (Pantoprazole 40 Mg Tablet) 40 mg PO BID [facility] Last Admin: 06/10/23 08:40 Dose: 40 mg Polyethylene Glycol (Polyethylene Glycol 3350 17 Gm Packet) 17 gm PO DAILY [facility] Last Admin: 06/10/23 08:41 Dose: Not Given Potassium Chloride (Potassium Chloride 10 Meq Capsule) 20 meq PO DAILYWM [facility] Last Admin: 06/10/23 08:40 Dose: 20 meq Multivit/Folic Acid/Iron ( Vitamin Tablet) 1 tab PO DAILY [facility] Last Admin: 06/10/23 08:40 Dose: 1 tab Sodium Chloride (Sodium Chloride Flush 0.9% 10 Ml Syringe) 10 ml IVP 0100,0900,1700 [facility] Last Admin: 06/10/23 08:41 Dose: 10 ml Sodium Chloride (Sodium Chloride Flush 0.9% 10 Ml Syringe) 10 ml IVP PRN PRN PRN Reason: NEEDED PER PROVIDER ORDERS Last Admin: 05/28/23 14:31 Dose: 10 ml Thiamine HCl (Thiamine 100 Mg Tablet) 250 mg PO DAILY [facility] Last Admin: 06/10/23 08:40 Dose: 250 mg Magnesium Oxide [Mag Ox] 400 mg PO DAILY 12/01/21 Multivitamin [Theragran] 1 each PO DAILY 12/01/21 Exam:Essentially unchanged since I first met him on June 08. Temperature is 36.6, heart rate 88, blood pressure 104/74, respirations 16, 96% on room air. 5 foot 9 inches tall, 65.5 kg Lungs are clear to auscultation and percussion without any increased respiratory effort is he talks to me, or wanders the hallways Regular rate and rhythm Abdomen is soft, nontender, normal bowel sounds. He is eating 100% of his food. Oral intake is approximately 1500 cc a day of water and fluids. Bowel movement yesterday and a bowel movement today. Extremities are thin, without any edema. Lab: No labs done today. Those are ordered for every 3 to 4 days. - Problem List (1) Alcohol withdrawal delirium resolved Impression: On 05/31, his behavior was more aggressive, he was refusing to take any pills, he was saying that we are experimenting on his body, he was trying to get up on his own, he said that a light bulb exploded in his mouth that morning, he was looking for the light bulb in the garbage can, he refused to have his vital signs taken A Telepsych eval was ordered and it was done. The impression was that he was delirious. 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 Per court, has been deemed incapacitated. crop or grain farmworker to obtain paperwork to confirm it. Plan: * Started high-dose IV thiamine 500 mg 3 times daily for 3 days on 05/31-06/02, to be followed by 500 mg daily for 5 days Juy - I started oral thiamine 250 mg daily June 09, as was recommended by the Telepsych surgical product sales consultant. * Keep the Haldol as needed order for agitation, which was recommended also by Telepsychiatrist. * Other recommendations could also be followed if needed, such as the use of Depakote. There are no changes to this plan as of today. The patient is medically stable, clear. We are just awaiting placement. 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 Supportive care - ok to maintain current cycle. (4) Tarry stool Assessment/Plan: After presenting to the ICU, the patient had a guaiac pos. stool Cont Protonix po twice daily for treating a poss ulcer His Hgb has been stable and no further melena Plan: Will check his Hgb and Plt intermittently. Transfuse if hemoglobin drops under 7, or under 8 if he is actively bleeding. Cont to avoid any aspirin or NSAID products (5) Viral respiratory infection Assessment/Plan: Rhionvirus Positive on 05/23 Sx Resolved Ok to end droplet precautions 6. Placement/ Discharge -Awaiting safe discharge daughter is working on getting guardianship and SS involved it this process
[2023-06-10] MEDS: chlordiazePOXIDE 5 MG CAPSULE PO SCH (20:09)
[2023-06-11] MEDS: SODIUM CHLORIDE FLUSH 0.9% 10 ML SYRINGE IVP SCH ×3 (00:15→16:35)
[2023-06-11] MEDS ORDERED: CARBOXYMETHYLCELLULOSE OPHTH DROPS EACHEYE PRN (06:32)
[2023-06-11] MEDS: MAGNESIUM OXIDE 400 MG TABLET PO SCH (07:48)
[2023-06-11] MEDS: POTASSIUM CHLORIDE 10 MEQ CAPSULE PO SCH (07:48)
[2023-06-11] MEDS: NICOTINE 14 MG PATCH TOP SCH (08:15)
[2023-06-11] MEDS: polyethylene glycoL 3350 17 GM PACKET PO SCH (08:16)
[2023-06-11] MEDS: PANTOPRAZOLE 40 MG TABLET PO SCH ×2 (08:16→20:32)
[2023-06-11] MEDS: THIAMINE 100 MG TABLET PO SCH (08:16)
[2023-06-11] MEDS: guaiFENesin 600 MG TABLET PO SCH ×2 (08:16→20:33)
[2023-06-11] MEDS: PRENATAL VITAMIN TABLET PO SCH (08:16)
--- NOTE | 2023-06-11 17:03 | PROVIDER PROGRESS NOTE ---
Progress Note June 11, 2023 5 PM Delightful gentleman. Been walking the hallways. Has shorts, T-shirt, sneakers. Well-groomed. Cooperative. Eating his food. Exam: Temperature 36.9, heart rate 86, blood pressure 108/76, respirations 18, 97% on room air Slender middle-age male who looks stated age Neck is supple Lungs are clear to auscultation and percussion Regular rate and rhythm Abdomen is soft and nontender Extremities without edema Alert and oriented to self and place. Not the date. Not understanding why he is here. No focal deficits. No ataxia. Assessment/plan This is a gentleman who has Warnicke Korsakoff syndrome due to chronic alcohol abuse. He had been clean and sober for a year and relapsed when he returned to [facility] for a court date. He can no longer live in his daughter's home. He is essentially homeless. He was admitted with acute withdrawal from alcohol and delirium. He had some tarry stools that have resolved. An rhino virus infection that resolved. He is now stable. We are awaiting placement. Resolved problems during the stay: (1) Alcohol withdrawal delirium resolved Impression: On 05/31, his behavior was more aggressive, he was refusing to take any pills, he was saying that we are experimenting on his body, he was trying to get up on his own, he said that a light bulb exploded in his mouth that morning, he was looking for the light bulb in the garbage can, he refused to have his vital signs taken A Telepsych eval was ordered and it was done. The impression was that he was delirious. 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 Per court, has been deemed incapacitated. advertising layout worker to obtain paperwork to confirm it. Plan: * Started high-dose IV thiamine 500 mg 3 times daily for 3 days on 05/31-06/02, to be followed by 500 mg daily for 5 days Ju- I started oral thiamine 250 mg daily June 09, as was recommended by the Telepsych economic consultant. * Keep the Haldol as needed order for agitation, which was recommended also by Telepsychiatrist. * Other recommendations could also be followed if needed, such as the use of Depakote. There are no changes to this plan as of today. The patient is medically stable, clear. We are just awaiting placement. 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 Supportive care - ok to maintain current cycle. (4) Tarry stool Assessment/Plan: After presenting to the ICU, the patient had a guaiac pos. stool Cont Protonix po twice daily for treating a poss ulcer His Hgb has been stable and no further melena Plan: Will check his Hgb and Plt intermittently. Transfuse if hemoglobin drops under 7, or under 8 if he is actively bleeding. Cont to avoid any aspirin or NSAID products (5) Viral respiratory infection Assessment/Plan: Rhionvirus Positive on 05/23 Sx Resolved Ok to end droplet precautions 6. Placement/ Discharge -Awaiting safe discharge daughter is working on getting guardianship and SS involved it this process
[2023-06-11] MEDS: chlordiazePOXIDE 5 MG CAPSULE PO SCH (20:32)
[2023-06-12] MEDS: SODIUM CHLORIDE FLUSH 0.9% 10 ML SYRINGE IVP SCH ×4 (01:30→23:19)
[2023-06-12] MEDS: THIAMINE 100 MG TABLET PO SCH (09:24)
[2023-06-12] MEDS: POTASSIUM CHLORIDE 10 MEQ CAPSULE PO SCH (09:24)
[2023-06-12] MEDS: PANTOPRAZOLE 40 MG TABLET PO SCH (09:24)
[2023-06-12] MEDS: NICOTINE 14 MG PATCH TOP SCH (09:25)
[2023-06-12] MEDS: polyethylene glycoL 3350 17 GM PACKET PO SCH (09:25)
[2023-06-12] MEDS: PRENATAL VITAMIN TABLET PO SCH (09:25)
[2023-06-12] MEDS: MAGNESIUM OXIDE 400 MG TABLET PO SCH (09:25)
[2023-06-12] MEDS: guaiFENesin 600 MG TABLET PO SCH (09:25)
--- NOTE | 2023-06-12 12:55 | PROVIDER PROGRESS NOTE ---
Progress Note June 12, 2023 12:51 PM Mr. Cano is cheerful. Walking in the hallways. Speaking to me, nursing, and security. Getting caught up in the news of the day. Denies any chest pain, palpitations, shortness of breath. I reviewed his active medication list and he is on Tylenol as needed, refresh eyedrops, Librium, Mucinex, Haldol as needed, magnesium oxide, Cavilon, zinc oxide, nicotine patch 14 mg, Zofran, Protonix 40 twice daily, MiraLAX, potassium 20 mill colons daily, vitamin, and thiamine 250 daily. Exam: Temperature is 36.5. Heart rate 70. Blood pressure 101/72. Respirations 16. 97% on room air. He is a lean lanky 5 foot 9 inch male up to 64.5 kg. Cheerful, alert and oriented to person, place but not time. Not always remembering the situation. 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 He has been clean and sober for a year but relapsed when he returned to [facility] for a court date. He was brought in intoxicated, belligerent. But has done very well with hydration, CIWA protocol. His family does not want him back home anymore. He is essentially homeless. We are attempting to find placement for him. After reviewing his med list, I will discontinue Mucinex. Discontinue Haldol. Reduce Protonix from daily to twice daily. Reduce nicotine patch from 14 mg a d ay to 7 mg today. Resolved problems during the stay: (1) Alcohol withdrawal delirium resolved Impression: On 05/31, his behavior was more aggressive, he was refusing to take any pills, he was saying that we are experimenting on his body, he was trying to get up on his own, he said that a light bulb exploded in his mouth that morning, he was looking for the light bulb in the garbage can, he refused to have his vital signs taken A Telepsych eval was ordered and it was done. The impression was that he was delirious. 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 Per court, has been deemed incapacitated. collar worker to obtain paperwork to confirm it. Plan: * Started high-dose IV thiamine 500 mg 3 times daily for 3 days on 05/31-06/02, to be followed by 500 mg daily for 5 days Juy - I started oral thiamine 250 mg daily June 09, as was recommended by the Telepsych [employer] web[employer] commerce consultant. * Keep the Haldol as needed order for agitation, which was recommended also by Telepsychiatrist. * Other recommendations could also be followed if needed, such as the use of Depakote. There are no changes to this plan as of today. The patient is medically stable, clear. We are just awaiting placement. 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 Supportive care - ok to maintain current cycle. (4) Tarry stool Assessment/Plan: After presenting to the ICU, the patient had a guaiac pos. stool Cont Protonix po twice daily for treating a poss ulcer His Hgb has been stable and no further melena Plan: Will check his Hgb and Plt intermittently. Transfuse if hemoglobin drops under 7, or under 8 if he is actively bleeding. Cont to avoid any aspirin or NSAID products (5) Viral respiratory infection Assessment/Plan: Rhionvirus Positive on 05/23 Sx Resolved Ok to end droplet precautions 6. Placement/ Discharge -Awaiting safe discharge daughter is working on getting guardianship and SS involved it this process
[2023-06-12] MEDS: chlordiazePOXIDE 5 MG CAPSULE PO SCH (20:06)
[2023-06-13] MEDS: PANTOPRAZOLE 40 MG TABLET PO SCH (06:03)
[2023-06-13] MEDS: THIAMINE 100 MG TABLET PO SCH (09:46)
[2023-06-13] MEDS: NICOTINE 7 MG PATCH TOP SCH (09:46)
[2023-06-13] MEDS: PRENATAL VITAMIN TABLET PO SCH (09:46)
[2023-06-13] MEDS: POTASSIUM CHLORIDE 10 MEQ CAPSULE PO SCH (09:46)
[2023-06-13] MEDS: MAGNESIUM OXIDE 400 MG TABLET PO SCH (09:46)
[2023-06-13] MEDS: polyethylene glycoL 3350 17 GM PACKET PO SCH (09:46)
[2023-06-13] MEDS: SODIUM CHLORIDE FLUSH 0.9% 10 ML SYRINGE IVP SCH ×3 (09:47→23:48)
--- NOTE | 2023-06-13 10:22 | PROVIDER PROGRESS NOTE ---
Progress Note June 13 10:20 AM Walking the hallways. Eating his food. Joking with me. Showing off the bumblebee drawing on the back of his patient down. Medications were adjusted yesterday and he is on all p.o. meds with minimal as needed meds. Active Medications Acetaminophen (Acetaminophen 325 Mg Tablet) 650 mg PO Q8HR PRN PRN Reason: Pain or Fever > 38C (100.4F) Last Admin: 06/02/23 15:43 Dose: 650 mg Carboxymethylcellulose (Carboxymethylcellulose Ophth Drops) 1 drops EACHEYE PRN PRN PRN Reason: Dry Eye Chlordiazepoxide HCl (Chlordiazepoxide 5 Mg Capsule) 5 mg PO QPM [facility] Last Admin: 06/12/23 20:06 Dose: 5 mg Magnesium Oxide (Magnesium Oxide 400 Mg Tablet) 400 mg PO DAILYWM [facility] Last Admin: 06/13/23 09:46 Dose: 400 mg Mineral Oil (Min Oil/Dimethicon/Coconut Oil 92 Gm Tube) 1 applic TOP PRN PRN PRN Reason: Skin Care Multi-Ingredient Ointment (Zinc Oxide 20% Oint 30 Gm Tube) 1 applic TOP PRN PRN PRN Reason: Skin Care Last Admin: 05/30/23 08:38 Dose: 1 applic Nicotine (Nicotine 7 Mg Patch) 1 patch TOP DAILY [facility] Last Admin: 06/13/23 09:46 Dose: 1 patch Ondansetron HCl (Ondansetron 4 Mg/2 Ml Vial) 4 mg IVP Q6HR PRN PRN Reason: Nausea / Vomiting Pantoprazole Sodium (Pantoprazole 40 Mg Tablet) 40 mg PO QDAC [facility] Last Admin: 06/13/23 06:03 Dose: 40 mg Polyethylene Glycol (Polyethylene Glycol 3350 17 Gm Packet) 17 gm PO DAILY [facility] Last Admin: 06/13/23 09:46 Dose: Not Given Potassium Chloride (Potassium Chloride 10 Meq Capsule) 20 meq PO DAILYWM [facility] Last Admin: 06/13/23 09:46 Dose: 20 meq Multivit/Folic Acid/Iron ( Vitamin Tablet) 1 tab PO DAILY [facility] Last Admin: 06/13/23 09:46 Dose: 1 tab Sodium Chloride (Sodium Chloride Flush 0.9% 10 Ml Syringe) 10 ml IVP 0100,0900,1700 [facility] Last Admin: 08/06/23 09:47 Dose: Not Given Sodium Chloride (Sodium Chloride Flush 0.9% 10 Ml Syringe) 10 ml IVP PRN PRN PRN Reason: NEEDED PER PROVIDER ORDERS Last Admin: 05/28/23 14:31 Dose: 10 ml Thiamine HCl (Thiamine 100 Mg Tablet) 250 mg PO DAILY [facility] Last Admin: 06/13/23 09:46 Dose: 250 mg Home Meds: Magnesium Oxide [Mag Ox] 400 mg PO DAILY 12/01/21 Multivitamin [Theragran] 1 each PO DAILY 12/01/21 Exam: Temperature 36.5, heart rate 70, blood pressure 112/68. Respirations 16. 96% on room air. 5 foot 9 inches tall, 65 kg, lean lanky pleasant gentleman Neck is supple Lungs are clear without increased respiratory effort Regular rate and rhythm Abdomen is soft, nontender, last bowel movement yesterday Extremities without edema Alert and oriented to person, place, not necessarily time or situation. Able to feed himself, dress himself. 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 He has been clean and sober for a year but relapsed when he returned to [facility] for a court date. He was brought in intoxicated, belligerent. But has done very well with hydration, CIWA protocol. His family does not want him back home anymore. He is essentially homeless. We are attempting to find placement for him. After reviewing his med list 06/12/23, I discontinued Mucinex. Discontinued Haldol. Reduced Protonix from daily to twice daily. Reduced nicotine patch from 14 mg a day to 7 mg today. No new orders today. Resolved problems during the stay: (1) Alcohol withdrawal delirium resolved Impression: On 05/31, his behavior was more aggressive, he was refusing to take any pills, he was saying that we are experimenting on his body, he was trying to get up on his own, he said that a light bulb exploded in his mouth that morning, he was looking for the light bulb in the garbage can, he refused to have his vital signs taken A Telepsych eval was ordered and it was done. The impression was that he was delirious. 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 Per court, has been deemed incapacitated. psychiatric social worker to obtain paperwork to confirm it. Plan: * Started high-dose IV thiamine 500 mg 3 times daily for 3 days on 05/31-06/02, to be followed by 500 mg daily for 5 days Juy - I started oral thiamine 250 mg daily June 09, as was recommended by the Telepsych behavioral health consultant. * Keep the Haldol as needed order for agitation, which was recommended also by Telepsychiatrist. * Other recommendations could also be followed if needed, such as the use of Depakote. There are no changes to this plan as of today. The patient is medically stable, clear. We are just awaiting placement. 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 Supportive care - ok to maintain current cycle. (4) Tarry stool Assessment/Plan: After presenting to the ICU, the patient had a guaiac pos. stool Cont Protonix po twice daily for treating a poss ulcer His Hgb has been stable and no further melena Plan: Will check his Hgb and Plt intermittently. Transfuse if hemoglobin drops under 7, or under 8 if he is actively bleeding. Cont to avoid any aspirin or NSAID products (5) Viral respiratory infection Assessment/Plan: Rhionvirus Positive on 05/23 Sx Resolved Ok to end droplet precautions 6. Placement/ Discharge -Awaiting safe discharge daughter is working on getting guardianship and SS involved it this process
[2023-06-13] MEDS: chlordiazePOXIDE 5 MG CAPSULE PO SCH (20:19)
[2023-06-14 05:24] LABS: HCT - HEMATOCRIT 39.1 % (42.0-52.0); HGB - HEMOGLOBIN 12.8 g/dL (14.0-18.0); MEAN CORPUSCULAR HEMOGLOBIN 30.3 pg (27.0-31.0); MEAN CORPUSCULAR HGB CONC 32.7 g/dL (32.0-36.0); MEAN CORPUSCULAR VOLUME 92.7 fL (80.0-94.0); MEAN PLATELET VOLUME 12.2 fL (7.4-11.4); RED BLOOD COUNT 4.22 10^6/uL (4.70-6.10); RED CELL DISTRIBUTION WIDTH 15.6 % (12.0-15.0); WHITE BLOOD COUNT 5.7 x10^3/uL (4.8-10.8)
[2023-06-14 05:43] LABS: CALCIUM 9.4 mg/dL (8.5-10.3); CREATININE 0.6 mg/dL (0.6-1.3); POTASSIUM 4.1 mmol/L (3.5-4.5)
[2023-06-14] MEDS: PANTOPRAZOLE 40 MG TABLET PO SCH (06:05)
[2023-06-14] MEDS: POTASSIUM CHLORIDE 10 MEQ CAPSULE PO SCH (08:36)
[2023-06-14] MEDS: PRENATAL VITAMIN TABLET PO SCH (08:36)
[2023-06-14] MEDS: NICOTINE 7 MG PATCH TOP SCH (08:36)
[2023-06-14] MEDS: MAGNESIUM OXIDE 400 MG TABLET PO SCH (08:37)
[2023-06-14] MEDS: THIAMINE 100 MG TABLET PO SCH (08:37)
[2023-06-14] MEDS: polyethylene glycoL 3350 17 GM PACKET PO SCH (08:38)
[2023-06-14] MEDS ORDERED: ONDANSETRON ODT 4 MG TABLET TL PRN (12:58)
--- NOTE | 2023-06-14 13:00 | PROVIDER PROGRESS NOTE ---
Progress Note June 14, 2023 1 PM Nothing new going on. No events. No falls. Eating. Ambulating. Oxygenating well. Cooperative with staff. Cheerful attitude. No insight. Sometimes has a little bit of nausea and nursing is wondering if I could order something for that Exam: Temperature is 36.1, heart rate 78, blood pressure 123/78, respirations 20. 97% on room air. Lean, lanky, alert gentleman. Walking in the hallways. Neck is supple Lungs are clear Regular rate and rhythm Abdomen soft and nontender and having normal bowel movements and urination Extremities without edema Oriented to person, place, not situation. Not date. Poor insight. No ataxia, no tremors. 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 He has been clean and sober for a year but relapsed when he returned to [facility] for a court date. He was brought in intoxicated, belligerent. But has done very well with hydration, CIWA protocol. His family does not want him back home anymore. He is essentially homeless. We are attempting to find placement for him. After reviewing his med list 06/12/23, I discontinued Mucinex. Discontinued Haldol. Reduced Protonix from daily to twice daily. Reduced nicotine patch from 14 mg a day to 7 mg today. Today I am stopping his Zofran IV. I had already stopped his IVs on June 12. And will change that to oral or ODT Zofran for nausea Resolved problems during the stay: (1) Alcohol withdrawal delirium resolved Impression: On 05/31, his behavior was more aggressive, he was refusing to take any pills, he was saying that we are experimenting on his body, he was trying to get up on his own, he said that a light bulb exploded in his mouth that morning, he was looking for the light bulb in the garbage can, he refused to have his vital signs taken A Telepsych eval was ordered and it was done. The impression was that he was delirious. 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 Per court, has been deemed incapacitated. antichecking iron worker to obtain paperwork to confirm it. Plan: * Started high-dose IV thiamine 500 mg 3 times daily for 3 days on 05/31-06/02, to be followed by 500 mg daily for 5 days Juy - I started oral thiamine 250 mg daily June 09, as was recommended by the Telepsych sales enablement consultant. * Keep the Haldol as needed order for agitation, which was recommended also by Telepsychiatrist. * Other recommendations could also be followed if needed, such as the use of Depakote. There are no changes to this plan as of today. The patient is medically stable, clear. We are just awaiting placement. 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 Supportive care - ok to maintain current cycle. (4) Tarry stool Assessment/Plan: After presenting to the ICU, the patient had a guaiac pos. stool Cont Protonix po twice daily for treating a poss ulcer His Hgb has been stable and no further melena Plan: Will check his Hgb and Plt intermittently. Transfuse if hemoglobin drops under 7, or under 8 if he is actively bleeding. Cont to avoid any aspirin or NSAID products (5) Viral respiratory infection Assessment/Plan: Rhionvirus Positive on 05/23 Sx Resolved Ok to end droplet precautions 6. Placement/ Discharge -Awaiting safe discharge daughter is working on getting guardianship and SS involved it this process
[2023-06-14] MEDS: chlordiazePOXIDE 5 MG CAPSULE PO SCH (20:09)
[2023-06-15] MEDS: PANTOPRAZOLE 40 MG TABLET PO SCH (06:53)
[2023-06-15] MEDS: polyethylene glycoL 3350 17 GM PACKET PO SCH (07:53)
[2023-06-15] MEDS: POTASSIUM CHLORIDE 10 MEQ CAPSULE PO SCH (07:54)
[2023-06-15] MEDS: PRENATAL VITAMIN TABLET PO SCH (07:54)
[2023-06-15] MEDS: THIAMINE 100 MG TABLET PO SCH (07:54)
[2023-06-15] MEDS: MAGNESIUM OXIDE 400 MG TABLET PO SCH (07:55)
[2023-06-15] MEDS: NICOTINE 7 MG PATCH TOP SCH (07:55)
--- NOTE | 2023-06-15 13:09 | PROVIDER PROGRESS NOTE ---
Assessment/Plan - Problem List (1) Wernicke-Korsakoff syndrome (alcoholic) Assessment/Plan: On 05/31, his behavior was more aggressive, he was refusing to take any pills, he was saying that we are experimenting on his body, he was trying to get up on his own, he said that a light bulb exploded in his mouth that morning, he was looking for the light bulb in the garbage can, he refused to have his vital sig ns taken A Telepsych eval was ordered and it was done. The impression was that he was delirious. 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 Per court, has been deemed incapacitated. signal worker to obtain paperwork to confirm it. Plan: * Started high-dose IV thiamine 500 mg 3 times daily for 3 days on 05/31-06/02, to be followed by 500 mg daily for 5 days June 03- We started him on oral thiamine 250 mg daily June 09, as was recommended by the Telepsych application security consultant. * Keep the Haldol as needed order for agitation, which was recommended also by Telepsychiatrist. * Other recommendations could also be followed if needed, such as the use of Depakote. Today 06/15, the AIMEE Ruthy and I saw him together and checked his memory and insight . There are no changes to this plan as of today. The patient is stable, has poor insight and poor short term memory. We are awaiting placement. 2) Alcohol abuse Impression/Plan: As in #1 (3) Reversed sleep wake cycle Assessment/Plan: Chronic, predates hospital admit. Supportive care - ok to maintain current cycle. (4) Tarry stool Assessment/Plan: After presenting to the ICU, the patient had a guaiac pos. stool Cont Protonix po twice daily for treating a poss ulcer His Hgb has been stable and no further melena Plan: Will check his Hgb and Plt intermittently. Transfuse if hemoglobin drops under 7, or under 8 if he is actively bleeding. Cont to avoid any aspirin or NSAID products (5) Viral respiratory infection Assessment/Plan: Rhionvirus Positive on 05/23 Sx Resolved Ok to end droplet precautions 6) Placement/ Discharge Awaiting safe discharge daughter is working on getting guardianship and SS involved it this process - Current Meds Current Meds: Current Medications Generic Name Dose Route Start Last Admin Trade Name Freq PRN Reason Stop Dose Admin Acetaminophen 650 mg 05/31/23 10:21 06/02/23 15:43 Acetaminophen 325 Mg Tablet PO 650 mg Q8HR PRN Administration Pain or Fever > 38C (100.4F) Chlordiazepoxide HCl 5 mg 05/30/23 21:00 06/14/23 20:09 Chlordiazepoxide 5 Mg Capsule PO 5 mg QPM MARY Administration Magnesium Oxide 400 mg 05/26/23 08:00 06/15/23 07:55 Magnesium Oxide 400 Mg Tablet PO 400 mg DAILYWM MARY Administration Multi-Ingredient Ointment 1 applic 05/23/23 12:08 05/30/23 08:38 Zinc Oxide 20% Oint 30 Gm Tube TOP 1 applic PRN PRN Administration Skin Care Nicotine 1 patch 06/13/23 09:00 06/15/23 07:55 Nicotine 7 Mg Patch TOP 1 patch DAILY MARY Administration Pantoprazole Sodium 40 mg 06/13/23 07:00 06/15/23 06:53 Pantoprazole 40 Mg Tablet PO 40 mg QDAC MARY Administration Polyethylene Glycol 17 gm 05/30/23 09:00 06/15/23 07:53 Polyethylene Glycol 3350 17 Gm Packet PO 17 gm DAILY MARY Administration Potassium Chloride 20 meq 05/27/23 08:00 06/15/23 07:54 Potassium Chloride 10 Meq Capsule PO 20 meq DAILYWM MARY Administration Multivit/Folic Acid/Iron 1 tab 05/24/23 09:00 06/15/23 07:54 Vitamin Tablet PO 1 tab DAILY MARY Administration Thiamine HCl 250 mg 06/09/23 10:30 06/15/23 07:54 Thiamine 100 Mg Tablet PO 250 mg DAILY MARY Administration - Lab Result Fish Bone Diagrams: 06/14/23 05:14 06/14/23 05:14 Subjective - Subjective Patient Reports: No Complaints Objective Vital Signs: Vital Signs - 24 hr 06/14/23 06/15/23 06/15/23 15:31 04:43 07:23 Temperature 36.5 C 36.3 C L 36.9 C Heart Rate [ 89 78 80 Brachial] Respiratory 18 16 22 Rate Blood Pressure 117/82 H 104/70 112/78 [Right Brachial artery] O2 Saturation 97 97 97 Oxygen O2 Source [Without Activity] Nasal cannula O2 Source Room air Oxygen Flow Rate 4 I&O (Last 24 Hrs): Intake and Output Totals x24h 06/13/23 06/14/23 06/15/23 23:59 23:59 23:59 Intake Total 2200 1830 780 Balance 0 1830 780 General: Alert, Oriented x3 HEENT: Mucous membr. moist/pink Neck: Supple Neuro: Alert, Other (Poor memory and insight, and he refused to try counting backwards from 100 by 3s) Cardiovascular: Regular rate Respiratory: No respiratory distress Abdomen: Other (Not distended) Extremities: No clubbing, No edema, Other (R 1st digit: not able to bend) - Results Results: Laboratory Results WBC 5.7 x10^3/uL (4.8-10.8) 06/14/23 05:14 RBC 4.22 10^6/uL (4.70-6.10) L 06/14/23 05:14 Hgb 12.8 g/dL (14.0-18.0) L 06/14/23 05:14 Hct 39.1 % (42.0-52.0) L 06/14/23 05:14 MCV 92.7 fL (80.0-94.0) 06/14/23 05:14 MCH 30.3 pg (27.0-31.0) 06/14/23 05:14 MCHC 32.7 g/dL (32.0-36.0) 06/14/23 05:14 RDW 15.6 % (12.0-15.0) H 06/14/23 05:14 Plt Count 174 10^3/uL (130-450) 06/14/23 05:14 MPV 12.2 fL (7.4-11.4) H 06/14/23 05:14 Neut # (Auto) 2.9 10^3/uL (1.5-6.6) 05/24/23 04:16 Lymph # (Auto) 0.6 10^3/uL (1.5-3.5) L 05/24/23 04:16 [place] # (Auto) 0.3 10^3/uL (0.0-1.0) 05/24/23 04:16 Eos # (Auto) 0.0 10^3/uL (0.0-0.7) 05/24/23 04:16 Baso # (Auto) 0.0 10^3/uL (0.0-0.1) 05/24/23 04:16 Absolute Nucleated RBC 0.00 x10^3/uL 05/24/23 04:16 Nucleated RBC % 0.0 /100WBC 05/24/23 04:16 Manual Slide Review Indicated 05/22/23 20:14 Platelet Estimate DECREASED (<130,000) (NORMAL) 05/22/23 20:14 Platelet Morphology NORMAL APPEARANCE (NORMAL) 05/22/23 20:14 RBC Morph Micro Appear NORMAL APPEARANCE (NORMAL) 05/22/23 20:14 PT 13.0 secs (9.9-12.6) H 05/24/23 04:16 INR 1.2 (0.8-1.2) 05/24/23 04:16 D-Dimer 730.4 ng/mL (200.0-255.0) H 05/23/23 07:31 VBG pH 7.463 (7.31-7.41) H 05/27/23 04:55 Ionized Calcium 1.09 mmol/L (1.15-1.33) L 05/27/23 04:55 Sodium 138 mmol/L (135-145) 06/14/23 05:14 Potassium 4.1 mmol/L (3.5-4.5) 06/14/23 05:14 Chloride 106 mmol/L (101-111) 06/14/23 05:14 Carbon Dioxide 26 mmol/L (21-32) 06/14/23 05:14 Anion Gap 6.0 (6-13) 06/14/23 05:14 BUN 15 mg/dL (6-20) 06/14/23 05:14 Creatinine 0.6 mg/dL (0.6-1.3) 06/14/23 05:14 Estimated GFR (MDRD) 136 (>89) 06/14/23 05:14 Glucose 89 mg/dL (74-104) 06/14/23 05:14 Calcium 9.4 mg/dL (8.5-10.3) 06/14/23 05:14 Phosphorus 3.7 mg/dL (3.7-7.2) 05/27/23 04:55 Magnesium 1.8 mg/dL (1.7-2.3) 06/04/23 04:45 Total Bilirubin 0.8 mg/dL (0.2-1.0) 05/27/23 10:45 AST 91 IU/L (10-42) H 05/27/23 10:45 ALT 89 IU/L (10-60) H 05/27/23 10:45 Alkaline Phosphatase 121 IU/L (42-121) 05/27/23 10:45 Ammonia 35.4 umol/L (7-35) H 05/26/23 04:29 B-Natriuretic Peptide 23 pg/mL (5-100) 05/23/23 07:31 Total Protein 6.4 g/dL (6.4-8.9) 05/27/23 10:45 Albumin 3.4 g/dL (3.2-5.5) 05/27/23 10:45 Globulin 3.0 g/dL (2.1-4.2) 05/27/23 10:45 Albumin/Globulin Ratio 1.1 (1.0-2.2) 05/27/23 10:45 Lipase 106 U/L (22-51) H 05/22/23 20:14 Urine Color DARK YELLOW 05/23/23 15:26 Urine Clarity CLEAR (CLEAR) 05/23/23 15:26 Urine pH 6.5 PH (5.0-7.5) 05/23/23 15:26 Ur Specific [place] 1.025 (1.002-1.030) 05/23/23 15:26 Urine Protein 100 mg/dL (NEGATIVE) H 05/23/23 15:26 Urine Glucose (UA) NEGATIVE mg/dL (NEGATIVE) 05/23/23 15:26 Urine Ketones 15 mg/dL (NEGATIVE) H 05/23/23 15:26 Urine Occult Blood SMALL (NEGATIVE) H 05/23/23 15:26 Urine Nitrite NEGATIVE (NEGATIVE) 05/23/23 15:26 Urine Bilirubin SMALL (NEGATIVE) H 05/23/23 15:26 Urine Urobilinogen 2 E.U./dL (NORMAL) H 05/23/23 15:26 Ur Leukocyte Esterase NEGATIVE (NEGATIVE) 05/23/23 15:26 Urine RBC 0-5 /HPF (0-5) 05/23/23 15:26 Urine WBC 0-3 /HPF (0-3) 07/16/23 15:26 Ur Squamous Epith Cells NONE SEEN (<= Few) 05/23/23 15:26 Urine Bacteria Rare /HPF (None Seen) 05/23/23 15:26 Ur Microscopic Review INDICATED 05/23/23 15:26 Urine Culture Comments NOT INDICATED 05/23/23 15:26 Nasal Adenovirus (PCR) NOT DETECTED 05/23/23 07:57 Nasal B. parapertussis DNA (PCR) NOT DETECTED 05/23/23 07:57 Nasal Coronavir 229E PCR NOT DETECTED 05/23/23 07:57 Nasal Coronavir HKU1 PCR NOT DETECTED 05/23/23 07:57 Nasal Coronavir NL63 PCR NOT DETECTED 05/23/23 07:57 Nasal Coronavir OC43 PCR NOT DETECTED 05/23/23 07:57 Nasal Enterovir/Rhinovir PCR DETECTED A 05/23/23 07:57 Nasal Influenza B PCR NOT DETECTED 05/23/23 07:57 Nasal Influenza A PCR NOT DETECTED 05/23/23 07:57 Nasal Parainfluen 1 PCR NOT DETECTED 05/23/23 07:57 Nasal Parainfluen 2 PCR NOT DETECTED 05/23/23 07:57 Nasal Parainfluen 3 PCR NOT DETECTED 05/23/23 07:57 Nasal Parainfluen 4 PCR NOT DETECTED 05/23/23 07:57 Nasal RSV (PCR) NOT DETECTED 05/23/23 07:57 Nasal Screen MRSA (PCR) NEGATIVE (NEGATIVE) 05/23/23 12:10 Nasal B.pertussis DNA PCR NOT DETECTED 05/23/23 07:57 Nasal C.pneumoniae (PCR) NOT DETECTED 05/23/23 07:57 Juan Daniel Human Metapneumo PCR NOT DETECTED 05/23/23 07:57 Nasal M.pneumoniae (PCR) NOT DETECTED 05/23/23 07:57 Nasal SARS-CoV-2 (PCR) NOT DETECTED 05/23/23 07:57 Urine Opiates Screen NEGATIVE (NEGATIVE) 05/23/23 15:26 Ur Oxycodone Screen NEGATIVE (NEGATIVE) 05/23/23 15:26 Urine Methadone Screen NEGATIVE (NEGATIVE) 05/23/23 15:26 Ur Propoxyphene Screen NEGATIVE (NEGATIVE) 05/23/23 15:26 Ur Barbiturates Screen POSITIVE (NEGATIVE) H 05/23/23 15:26 Ur Tricyclics Screen NEGATIVE (NEGATIVE) 05/23/23 15:26 Ur Phencyclidine Scrn NEGATIVE (NEGATIVE) 05/23/23 15:26 Ur Amphetamine Screen NEGATIVE (NEGATIVE) 05/23/23 15:26 U Methamphetamines Scrn NEGATIVE (NEGATIVE) 05/23/23 15:26 U Benzodiazepines Scrn POSITIVE (NEGATIVE) H 05/23/23 15:26 Urine Cocaine Screen NEGATIVE (NEGATIVE) 05/23/23 15:26 U Cannabinoids Screen POSITIVE (NEGATIVE) H 05/23/23 15:26 Ethyl Alcohol 291.5 mg/dL 05/22/23 20:14
[2023-06-15] MEDS: chlordiazePOXIDE 5 MG CAPSULE PO SCH (20:59)
[2023-06-16] MEDS: NICOTINE 7 MG PATCH TOP SCH (07:26)
[2023-06-16] MEDS: MAGNESIUM OXIDE 400 MG TABLET PO SCH (07:27)
[2023-06-16] MEDS: PRENATAL VITAMIN TABLET PO SCH (07:27)
[2023-06-16] MEDS: POTASSIUM CHLORIDE 10 MEQ CAPSULE PO SCH (07:27)
[2023-06-16] MEDS: PANTOPRAZOLE 40 MG TABLET PO SCH (07:27)
[2023-06-16] MEDS: THIAMINE 100 MG TABLET PO SCH (07:27)
[2023-06-16] MEDS: polyethylene glycoL 3350 17 GM PACKET PO SCH (07:28)
[2023-06-16] MEDS ORDERED: chlordiazePOXIDE 5 MG CAPSULE PO PRN (07:51)
--- NOTE | 2023-06-16 10:41 | PROVIDER PROGRESS NOTE ---
Assessment/Plan - Problem List (1) Wernicke-Korsakoff syndrome (alcoholic) Assessment/Plan: On 05/31, his behavior was more aggressive, he was refusing to take any pills, he was saying that we are experimenting on his body, he was trying to get up on his own, he said that a light bulb exploded in his mouth that morning, he was looking for the light bulb in the garbage can, he refused to have his vital sig ns taken A Telepsych eval was ordered and it was done. The impression was that he was delirious. 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 Per court, has been deemed incapacitated. 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 Plan: * Started high-dose IV thiamine 500 mg 3 times daily for 3 days on 05/31-06/02, to be followed by 500 mg daily for 5 days June 03- We started him on oral thiamine 250 mg daily June 09, as was recommended by the Telepsych residential sales consultant. * Keep the Haldol as needed order for agitation, which was recommended also by Telepsychiatrist. * Other recommendations could also be followed if needed, such as the use of Depakote. Yesterday 06/15, the AIMEE Ruthy and I saw him together and checked his memory and ins ight. The patient is stable, has poor insight and poor short term memory. There are no changes to this plan as of today, except I will decrease his BP checks to once daily. We are awaiting placement. 2) Alcohol abuse Impression/Plan: As in #1 (3) Reversed sleep wake cycle Assessment/Plan: Chronic, predates hospital admit. Supportive care - ok to maintain current cycle. (4) Tarry stool Assessment/Plan: After presenting to the ICU, the patient had a guaiac pos. stool Cont Protonix po twice daily for treating a poss ulcer His Hgb has been stable and no further melena Plan: Will check his Hgb and Plt intermittently. Transfuse if hemoglobin drops under 7, or under 8 if he is actively bleeding. Cont to avoid any aspirin or NSAID products (5) Viral respiratory infection Assessment/Plan: Rhionvirus Positive on 05/23 Sx Resolved Ok to end droplet precautions 6) Placement/ Discharge Awaiting safe discharge daughter is working on getting guardianship and SS involved it this process - Current Meds Current Meds: Current Medications Generic Name Dose Route Start Last Admin Trade Name Debby PRN Reason Stop Dose Admin Acetaminophen 650 mg 05/31/23 10:21 06/02/23 15:43 Acetaminophen 325 Mg Tablet PO 650 mg Q8HR PRN Administration Pain or Fever > 38C (100.4F) Magnesium Oxide 400 mg 05/26/23 08:00 06/16/23 07:27 Magnesium Oxide 400 Mg Tablet PO 400 mg DAILYWM MARY Administration Multi-Ingredient Ointment 1 applic 05/23/23 12:08 05/30/23 08:38 Zinc Oxide 20% Oint 30 Gm Tube TOP 1 applic PRN PRN Administration Skin Care Nicotine 1 patch 06/13/23 09:00 06/16/23 07:26 Nicotine 7 Mg Patch TOP 1 patch DAILY MARY Administration Pantoprazole Sodium 40 mg 06/13/23 07:00 06/16/23 07:27 Pantoprazole 40 Mg Tablet PO 40 mg QDAC MARY Administration Polyethylene Glycol 17 gm 05/30/23 09:00 06/16/23 07:28 Polyethylene Glycol 3350 17 Gm Packet PO Not Given DAILY MARY Potassium Chloride 20 meq 05/27/23 08:00 06/16/23 07:27 Potassium Chloride 10 Meq Capsule PO 20 meq DAILYWM MARY Administration Multivit/Folic Acid/Iron 1 tab 05/24/23 09:00 06/16/23 07:27 Vitamin Tablet PO 1 tab DAILY MARY Administration Thiamine HCl 250 mg 06/09/23 10:30 06/16/23 07:27 Thiamine 100 Mg Tablet PO 250 mg DAILY MARY Administration - Lab Result Fish Bone Diagrams: 06/14/23 05:14 06/14/23 05:14 - Additional Planning My Orders: My Active Orders 06/16/23 07:51 [id number] [Librium] 5 mg PO QPM PRN Subjective - Subjective Patient Reports: No Complaints Objective Vital Signs: Vital Signs - 24 hr 06/15/23 06/16/23 06/16/23 15:45 06:00 08:07 Temperature 36.6 C 36.4 C L 36.5 C Heart Rate [ 80 81 85 Brachial] Respiratory 20 16 18 Rate Blood Pressure 124/80 [Left Brachial artery] Blood Pressure 107/71 113/85 H [Right Brachial artery] O2 Saturation 97 98 95 Oxygen O2 Source [Without Activity] Nasal cannula O2 Source Room air Oxygen Flow Rate 4 I&O (Last 24 Hrs): Intake and Output Totals x24h 06/14/23 06/15/23 06/16/23 23:59 23:59 23:59 Intake Total 1830 2180 1170 Balance 1830 2180 1170 General: Alert, Oriented x3 HEENT: Mucous membr. moist/pink Neck: Supple Neuro: Alert, Non Focal Cardiovascular: Regular rate Respiratory: No respiratory distress Abdomen: Other (No distension) Extremities: No clubbing, No edema, No tenderness/swelling - Results Results: Laboratory Results WBC 5.7 x10^3/uL (4.8-10.8) 06/14/23 05:14 RBC 4.22 10^6/uL (4.70-6.10) L 06/14/23 05:14 Hgb 12.8 g/dL (14.0-18.0) L 06/14/23 05:14 Hct 39.1 % (42.0-52.0) L 06/14/23 05:14 MCV 92.7 fL (80.0-94.0) 06/14/23 05:14 MCH 30.3 pg (27.0-31.0) 06/14/23 05:14 MCHC 32.7 g/dL (32.0-36.0) 06/14/23 05:14 RDW 15.6 % (12.0-15.0) H 06/14/23 05:14 Plt Count 174 10^3/uL (130-450) 06/14/23 05:14 MPV 12.2 fL (7.4-11.4) H 06/14/23 05:14 Neut # (Auto) 2.9 10^3/uL (1.5-6.6) 05/24/23 04:16 Lymph # (Auto) 0.6 10^3/uL (1.5-3.5) L 05/24/23 04:16 [place] # (Auto) 0.3 10^3/uL (0.0-1.0) 05/24/23 04:16 Eos # (Auto) 0.0 10^3/uL (0.0-0.7) 05/24/23 04:16 Baso # (Auto) 0.0 10^3/uL (0.0-0.1) 05/24/23 04:16 Absolute Nucleated RBC 0.00 x10^3/uL 05/24/23 04:16 Nucleated RBC % 0.0 /100WBC 05/24/23 04:16 Manual Slide Review Indicated 05/22/23 20:14 Platelet Estimate DECREASED (<130,000) (NORMAL) 05/22/23 20:14 Platelet Morphology NORMAL APPEARANCE (NORMAL) 05/22/23 20:14 RBC Morph Micro Appear NORMAL APPEARANCE (NORMAL) 05/22/23 20:14 PT 13.0 secs (9.9-12.6) H 05/24/23 04:16 INR 1.2 (0.8-1.2) 05/24/23 04:16 D-Dimer 730.4 ng/mL (200.0-255.0) H 05/23/23 07:31 VBG pH 7.463 (7.31-7.41) H 05/27/23 04:55 Ionized Calcium 1.09 mmol/L (1.15-1.33) L 05/27/23 04:55 Sodium 138 mmol/L (135-145) 06/14/23 05:14 Potassium 4.1 mmol/L (3.5-4.5) 06/14/23 05:14 Chloride 106 mmol/L (101-111) 06/14/23 05:14 Carbon Dioxide 26 mmol/L (21-32) 06/14/23 05:14 Anion Gap 6.0 (6-13) 06/14/23 05:14 BUN 15 mg/dL (6-20) 06/14/23 05:14 Creatinine 0.6 mg/dL (0.6-1.3) 06/14/23 05:14 Estimated GFR (MDRD) 136 (>89) 06/14/23 05:14 Glucose 89 mg/dL (74-104) 06/14/23 05:14 Calcium 9.4 mg/dL (8.5-10.3) 06/14/23 05:14 Phosphorus 3.7 mg/dL (3.7-7.2) 05/27/23 04:55 Magnesium 1.8 mg/dL (1.7-2.3) 06/04/23 04:45 Total Bilirubin 0.8 mg/dL (0.2-1.0) 05/27/23 10:45 AST 91 IU/L (10-42) H 05/27/23 10:45 ALT 89 IU/L (10-60) H 05/27/23 10:45 Alkaline Phosphatase 121 IU/L (42-121) 05/27/23 10:45 Ammonia 35.4 umol/L (7-35) H 05/26/23 04:29 B-Natriuretic Peptide 23 pg/mL (5-100) 05/23/23 07:31 Total Protein 6.4 g/dL (6.4-8.9) 05/27/23 10:45 Albumin 3.4 g/dL (3.2-5.5) 05/27/23 10:45 Globulin 3.0 g/dL (2.1-4.2) 05/27/23 10:45 Albumin/Globulin Ratio 1.1 (1.0-2.2) 05/27/23 10:45 Lipase 106 U/L (22-51) H 05/22/23 20:14 Urine Color DARK YELLOW 05/23/23 15:26 Urine Clarity CLEAR (CLEAR) 05/23/23 15:26 Urine pH 6.5 PH (5.0-7.5) 05/23/23 15:26 Ur Specific [place] 1.025 (1.002-1.030) 05/23/23 15:26 Urine Protein 100 mg/dL (NEGATIVE) H 05/23/23 15:26 Urine Glucose (UA) NEGATIVE mg/dL (NEGATIVE) 05/23/23 15:26 Urine Ketones 15 mg/dL (NEGATIVE) H 05/23/23 15:26 Urine Occult Blood SMALL (NEGATIVE) H 05/23/23 15:26 Urine Nitrite NEGATIVE (NEGATIVE) 05/23/23 15:26 Urine Bilirubin SMALL (NEGATIVE) H 05/23/23 15:26 Urine Urobilinogen 2 E.U./dL (NORMAL) H 05/23/23 15:26 Ur Leukocyte Esterase NEGATIVE (NEGATIVE) 05/23/23 15:26 Urine RBC 0-5 /HPF (0-5) 05/23/23 15:26 Urine WBC 0-3 /HPF (0-3) 05/23/23 15:26 Ur Squamous Epith Cells NONE SEEN (<= Few) 05/23/23 15:26 Urine Bacteria Rare /HPF (None Seen) 05/23/23 15:26 Ur Microscopic Review INDICATED 05/23/23 15:26 Urine Culture Comments NOT INDICATED 05/23/23 15:26 Nasal Adenovirus (PCR) NOT DETECTED 05/23/23 07:57 Nasal B. parapertussis DNA (PCR) NOT DETECTED 05/23/23 07:57 Nasal Coronavir 229E PCR NOT DETECTED 05/23/23 07:57 Nasal Coronavir HKU1 PCR NOT DETECTED 05/23/23 07:57 Nasal Coronavir NL63 PCR NOT DETECTED 05/23/23 07:57 Nasal Coronavir OC43 PCR NOT DETECTED 05/23/23 07:57 Nasal Enterovir/Rhinovir PCR DETECTED A 05/23/23 07:57 Nasal Influenza B PCR NOT DETECTED 05/23/23 07:57 Nasal Influenza A PCR NOT DETECTED 05/23/23 07:57 Nasal Parainfluen 1 PCR NOT DETECTED 05/23/23 07:57 Nasal Parainfluen 2 PCR NOT DETECTED 05/23/23 07:57 Nasal Parainfluen 3 PCR NOT DETECTED 05/23/23 07:57 Nasal Parainfluen 4 PCR NOT DETECTED 05/23/23 07:57 Nasal RSV (PCR) NOT DETECTED 05/23/23 07:57 Nasal Screen MRSA (PCR) NEGATIVE (NEGATIVE) 05/23/23 12:10 Nasal B.pertussis DNA PCR NOT DETECTED 05/23/23 07:57 Nasal C.pneumoniae (PCR) NOT DETECTED 05/23/23 07:57 Juan Daniel Human Metapneumo PCR NOT DETECTED 05/23/23 07:57 Nasal M.pneumoniae (PCR) NOT DETECTED 05/23/23 07:57 Nasal SARS-CoV-2 (PCR) NOT DETECTED 05/23/23 07:57 Urine Opiates Screen NEGATIVE (NEGATIVE) 05/23/23 15:26 Ur Oxycodone Screen NEGATIVE (NEGATIVE) 05/23/23 15:26 Urine Methadone Screen NEGATIVE (NEGATIVE) 05/23/23 15:26 Ur Propoxyphene Screen NEGATIVE (NEGATIVE) 05/23/23 15:26 Ur Barbiturates Screen POSITIVE (NEGATIVE) H 05/23/23 15:26 Ur Tricyclics Screen NEGATIVE (NEGATIVE) 05/23/23 15:26 Ur Phencyclidine Scrn NEGATIVE (NEGATIVE) 05/23/23 15:26 Ur Amphetamine Screen NEGATIVE (NEGATIVE) 05/23/23 15:26 U Methamphetamines Scrn NEGATIVE (NEGATIVE) 05/23/23 15:26 U Benzodiazepines Scrn POSITIVE (NEGATIVE) H 05/23/23 15:26 Urine Cocaine Screen NEGATIVE (NEGATIVE) 05/23/23 15:26 U Cannabinoids Screen POSITIVE (NEGATIVE) H 05/23/23 15:26 Ethyl Alcohol 291.5 mg/dL 05/22/23 20:14
[2023-06-17] MEDS: PANTOPRAZOLE 40 MG TABLET PO SCH (06:28)
[2023-06-17] MEDS: NICOTINE 7 MG PATCH TOP SCH (08:16)
[2023-06-17] MEDS: polyethylene glycoL 3350 17 GM PACKET PO SCH (08:17)
[2023-06-17] MEDS: MAGNESIUM OXIDE 400 MG TABLET PO SCH (08:17)
[2023-06-17] MEDS: THIAMINE 100 MG TABLET PO SCH (08:17)
[2023-06-17] MEDS: PRENATAL VITAMIN TABLET PO SCH (08:17)
[2023-06-17] MEDS: POTASSIUM CHLORIDE 10 MEQ CAPSULE PO SCH (08:18)
[2023-06-17] MEDS ORDERED: BACITRACIN ZINC OINT 1 PACKET TOP PRN (08:52)
--- NOTE | 2023-06-17 16:24 | PROVIDER PROGRESS NOTE ---
Assessment/Plan - Problem List (1) Wernicke-Korsakoff syndrome (alcoholic) Assessment/Plan: On 05/31, his behavior was more aggressive, he was refusing to take any pills, he was saying that we are experimenting on his body, he was trying to get up on his own, he said that a light bulb exploded in his mouth that morning, he was looking for the light bulb in the garbage can, he refused to have his vital sig ns taken A Telepsych eval was ordered and it was done. The impression was that he was delirious. 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 Per court, has been deemed incapacitated. 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 Plan: * Started high-dose IV thiamine 500 mg 3 times daily for 3 days on 05/31-06/02, to be followed by 500 mg daily for 5 days June 03- We started him on oral thiamine 250 mg daily June 09, as was recommended by the Telepsych performance management consultant. * Keep the Haldol as needed order for agitation, which was recommended also by Telepsychiatrist. * Other recommendations could also be followed if needed, such as the use of Depakote. Yesterday 06/15, the AIMEE Ruthy and I saw him together and checked his memory and ins ight. The patient is stable, has poor insight and poor short term memory. There are no changes to this plan as of today. We are awaiting placement. 2) Alcohol abuse Impression/Plan: As in #1 (3) Reversed sleep wake cycle Assessment/Plan: Chronic, predates hospital admit. Supportive care - ok to maintain current cycle. (4) Tarry stool Assessment/Plan: After presenting to the ICU, the patient had a guaiac pos. stool Cont Protonix po twice daily for treating a poss ulcer His Hgb has been stable and no further melena Plan: Will check his Hgb and Plt intermittently. Transfuse if hemoglobin drops under 7, or under 8 if he is actively bleeding. Cont to avoid any aspirin or NSAID products (5) Viral respiratory infection Assessment/Plan: Rhionvirus Positive on 05/23 Sx Resolved Ok to end droplet precautions 6) Placement/ Discharge Awaiting safe discharge daughter is working on getting guardianship and SS involved it this process - Current Meds Current Meds: Current Medications Generic Name Dose Route Start Last Admin Trade Name Debby PRN Reason Stop Dose Admin Acetaminophen 650 mg 05/31/23 10:21 06/02/23 15:43 Acetaminophen 325 Mg Tablet PO 650 mg Q8HR PRN Administration Pain or Fever > 38C (100.4F) Magnesium Oxide 400 mg 05/26/23 08:00 06/17/23 08:17 Magnesium Oxide 400 Mg Tablet PO 400 mg DAILYWM MARY Administration Multi-Ingredient Ointment 1 applic 05/23/23 12:08 05/30/23 08:38 Zinc Oxide 20% Oint 30 Gm Tube TOP 1 applic PRN PRN Administration Skin Care Nicotine 1 patch 06/13/23 09:00 06/17/23 08:16 Nicotine 7 Mg Patch TOP 1 patch DAILY MARY Administration Polyethylene Glycol 17 gm 05/30/23 09:00 06/17/23 08:17 Polyethylene Glycol 3350 17 Gm Packet PO 17 gm DAILY MARY Administration Potassium Chloride 20 meq 05/27/23 08:00 06/17/23 08:18 Potassium Chloride 10 Meq Capsule PO 20 meq DAILYWM MARY Administration Multivit/Folic Acid/Iron 1 tab 05/24/23 09:00 06/17/23 08:17 Vitamin Tablet PO 1 tab DAILY MARY Administration Thiamine HCl 250 mg 06/09/23 10:30 06/17/23 08:17 Thiamine 100 Mg Tablet PO 250 mg DAILY MARY Administration - Lab Result Fish Bone Diagrams: 06/14/23 05:14 06/14/23 05:14 - Additional Planning My Orders: My Active Orders 06/17/23 08:52 Bacitracin Zinc Oint [Bacitracin] 1 packet TOP PRN PRN Subjective - Subjective Patient Reports: Resting Comfortably, No Complaints Objective Vital Signs: Vital Signs - 24 hr 06/17/23 08:26 Temperature 36.6 C Heart Rate [ 89 Brachial] Respiratory 18 Rate Blood Pressure 124/71 [Right Brachial artery] O2 Saturation 98 Oxygen O2 Source [Without Activity] Nasal cannula O2 Source Room air Oxygen Flow Rate 4 I&O (Last 24 Hrs): Intake and Output Totals x24h 06/15/23 06/16/23 06/17/23 23:59 23:59 23:59 Intake Total 2180 2130 720 Balance 2180 2130 720 General: Alert, Oriented x3 HEENT: Mucous membr. moist/pink Neck: Supple Neuro: Alert, Non Focal Cardiovascular: Regular rate Respiratory: No respiratory distress Abdomen: Other (No distension) Extremities: No clubbing, No edema, No tenderness/swelling - Results Results: Laboratory Results WBC 5.7 x10^3/uL (4.8-10.8) 06/14/23 05:14 RBC 4.22 10^6/uL (4.70-6.10) L 06/14/23 05:14 Hgb 12.8 g/dL (14.0-18.0) L 06/14/23 05:14 Hct 39.1 % (42.0-52.0) L 06/14/23 05:14 MCV 92.7 fL (80.0-94.0) 06/14/23 05:14 MCH 30.3 pg (27.0-31.0) 06/14/23 05:14 MCHC 32.7 g/dL (32.0-36.0) 06/14/23 05:14 RDW 15.6 % (12.0-15.0) H 06/14/23 05:14 Plt Count 174 10^3/uL (130-450) 06/14/23 05:14 MPV 12.2 fL (7.4-11.4) H 06/14/23 05:14 Neut # (Auto) 2.9 10^3/uL (1.5-6.6) 05/24/23 04:16 Lymph # (Auto) 0.6 10^3/uL (1.5-3.5) L 05/24/23 04:16 [place] # (Auto) 0.3 10^3/uL (0.0-1.0) 05/24/23 04:16 Eos # (Auto) 0.0 10^3/uL (0.0-0.7) 05/24/23 04:16 Baso # (Auto) 0.0 10^3/uL (0.0-0.1) 05/24/23 04:16 Absolute Nucleated RBC 0.00 x10^3/uL 05/24/23 04:16 Nucleated RBC % 0.0 /100WBC 05/24/23 04:16 Manual Slide Review Indicated 05/22/23 20:14 Platelet Estimate DECREASED (<130,000) (NORMAL) 05/22/23 20:14 Platelet Morphology NORMAL APPEARANCE (NORMAL) 05/22/23 20:14 RBC Morph Micro Appear NORMAL APPEARANCE (NORMAL) 05/22/23 20:14 PT 13.0 secs (9.9-12.6) H 05/24/23 04:16 INR 1.2 (0.8-1.2) 05/24/23 04:16 D-Dimer 730.4 ng/mL (200.0-255.0) H 05/23/23 07:31 VBG pH 7.463 (7.31-7.41) H 05/27/23 04:55 Ionized Calcium 1.09 mmol/L (1.15-1.33) L 05/27/23 04:55 Sodium 138 mmol/L (135-145) 06/14/23 05:14 Potassium 4.1 mmol/L (3.5-4.5) 06/14/23 05:14 Chloride 106 mmol/L (101-111) 06/14/23 05:14 Carbon Dioxide 26 mmol/L (21-32) 06/14/23 05:14 Anion Gap 6.0 (6-13) 06/14/23 05:14 BUN 15 mg/dL (6-20) 06/14/23 05:14 Creatinine 0.6 mg/dL (0.6-1.3) 06/14/23 05:14 Estimated GFR (MDRD) 136 (>89) 06/14/23 05:14 Glucose 89 mg/dL (74-104) 06/14/23 05:14 Calcium 9.4 mg/dL (8.5-10.3) 06/14/23 05:14 Phosphorus 3.7 mg/dL (3.7-7.2) 05/27/23 04:55 Magnesium 1.8 mg/dL (1.7-2.3) 06/04/23 04:45 Total Bilirubin 0.8 mg/dL (0.2-1.0) 05/27/23 10:45 AST 91 IU/L (10-42) H 05/27/23 10:45 ALT 89 IU/L (10-60) H 05/27/23 10:45 Alkaline Phosphatase 121 IU/L (42-121) 05/27/23 10:45 Ammonia 35.4 umol/L (7-35) H 05/26/23 04:29 B-Natriuretic Peptide 23 pg/mL (5-100) 05/23/23 07:31 Total Protein 6.4 g/dL (6.4-8.9) 05/27/23 10:45 Albumin 3.4 g/dL (3.2-5.5) 05/27/23 10:45 Globulin 3.0 g/dL (2.1-4.2) 05/27/23 10:45 Albumin/Globulin Ratio 1.1 (1.0-2.2) 05/27/23 10:45 Lipase 106 U/L (22-51) H 05/22/23 20:14 Urine Color DARK YELLOW 05/23/23 15:26 Urine Clarity CLEAR (CLEAR) 05/23/23 15:26 Urine pH 6.5 PH (5.0-7.5) 05/23/23 15:26 Ur Specific [place] 1.025 (1.002-1.030) 05/23/23 15:26 Urine Protein 100 mg/dL (NEGATIVE) H 05/23/23 15:26 Urine Glucose (UA) NEGATIVE mg/dL (NEGATIVE) 05/23/23 15:26 Urine Ketones 15 mg/dL (NEGATIVE) H 05/23/23 15:26 Urine Occult Blood SMALL (NEGATIVE) H 05/23/23 15:26 Urine Nitrite NEGATIVE (NEGATIVE) 05/23/23 15:26 Urine Bilirubin SMALL (NEGATIVE) H 05/23/23 15:26 Urine Urobilinogen 2 E.U./dL (NORMAL) H 05/23/23 15:26 Ur Leukocyte Esterase NEGATIVE (NEGATIVE) 05/23/23 15:26 Urine RBC 0-5 /HPF (0-5) 05/23/23 15:26 Urine WBC 0-3 /HPF (0-3) 05/23/23 15:26 Ur Squamous Epith Cells NONE SEEN (<= Few) 05/23/23 15:26 Urine Bacteria Rare /HPF (None Seen) 05/23/23 15:26 Ur Microscopic Review INDICATED 05/23/23 15:26 Urine Culture Comments NOT INDICATED 05/23/23 15:26 Nasal Adenovirus (PCR) NOT DETECTED 05/23/23 07:57 Nasal B. parapertussis DNA (PCR) NOT DETECTED 05/23/23 07:57 Nasal Coronavir 229E PCR NOT DETECTED 05/23/23 07:57 Nasal Coronavir HKU1 PCR NOT DETECTED 05/23/23 07:57 Nasal Coronavir NL63 PCR NOT DETECTED 05/23/23 07:57 Nasal Coronavir OC43 PCR NOT DETECTED 05/23/23 07:57 Nasal Enterovir/Rhinovir PCR DETECTED A 05/23/23 07:57 Nasal Influenza B PCR NOT DETECTED 05/23/23 07:57 Nasal Influenza A PCR NOT DETECTED 05/23/23 07:57 Nasal Parainfluen 1 PCR NOT DETECTED 05/23/23 07:57 Nasal Parainfluen 2 PCR NOT DETECTED 05/23/23 07:57 Nasal Parainfluen 3 PCR NOT DETECTED 05/23/23 07:57 Nasal Parainfluen 4 PCR NOT DETECTED 05/23/23 07:57 Nasal RSV (PCR) NOT DETECTED 05/23/23 07:57 Nasal Screen MRSA (PCR) NEGATIVE (NEGATIVE) 05/23/23 12:10 Nasal B.pertussis DNA PCR NOT DETECTED 05/23/23 07:57 Nasal C.pneumoniae (PCR) NOT DETECTED 05/23/23 07:57 Juan Daniel Human Metapneumo PCR NOT DETECTED 05/23/23 07:57 Nasal M.pneumoniae (PCR) NOT DETECTED 05/23/23 07:57 Nasal SARS-CoV-2 (PCR) NOT DETECTED 05/23/23 07:57 Urine Opiates Screen NEGATIVE (NEGATIVE) 05/23/23 15:26 Ur Oxycodone Screen NEGATIVE (NEGATIVE) 05/23/23 15:26 Urine Methadone Screen NEGATIVE (NEGATIVE) 05/23/23 15:26 Ur Propoxyphene Screen NEGATIVE (NEGATIVE) 05/23/23 15:26 Ur Barbiturates Screen POSITIVE (NEGATIVE) H 05/23/23 15:26 Ur Tricyclics Screen NEGATIVE (NEGATIVE) 05/23/23 15:26 Ur Phencyclidine Scrn NEGATIVE (NEGATIVE) 05/23/23 15:26 Ur Amphetamine Screen NEGATIVE (NEGATIVE) 05/23/23 15:26 U Methamphetamines Scrn NEGATIVE (NEGATIVE) 05/23/23 15:26 U Benzodiazepines Scrn POSITIVE (NEGATIVE) H 05/23/23 15:26 Urine Cocaine Screen NEGATIVE (NEGATIVE) 05/23/23 15:26 U Cannabinoids Screen POSITIVE (NEGATIVE) H 05/23/23 15:26 Ethyl Alcohol 291.5 mg/dL 05/22/23 20:14
[2023-06-18] MEDS: POTASSIUM CHLORIDE 10 MEQ CAPSULE PO SCH (08:52)
[2023-06-18] MEDS: PRENATAL VITAMIN TABLET PO SCH (08:52)
[2023-06-18] MEDS: MAGNESIUM OXIDE 400 MG TABLET PO SCH (08:52)
[2023-06-18] MEDS: THIAMINE 100 MG TABLET PO SCH (08:53)
[2023-06-18] MEDS: NICOTINE 7 MG PATCH TOP SCH (08:53)
[2023-06-18] MEDS: polyethylene glycoL 3350 17 GM PACKET PO SCH (08:58)
[2023-06-18] MEDS: KETOCONAZOLE 2% CREAM 15 GM TUBE TOP SCH ×2 (10:45→20:44)
--- NOTE | 2023-06-18 18:39 | PROVIDER PROGRESS NOTE ---
Assessment/Plan - Problem List (1) Wernicke-Korsakoff syndrome (alcoholic) Assessment/Plan: On 05/31, his behavior was more aggressive, he was refusing to take any pills, he was saying that we are experimenting on his body, he was trying to get up on his own, he said that a light bulb exploded in his mouth that morning, he was looking for the light bulb in the garbage can, he refused to have his vital sig ns taken A Telepsych eval was ordered and it was done. The impression was that he was delirious. 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 Per court, has been deemed incapacitated. vault worker to obtain paperwork to confirm it. Plan: * Started high-dose IV thiamine 500 mg 3 times daily for 3 days on 05/31-06/02, to be followed by 500 mg daily for 5 days June 03- We started him on oral thiamine 250 mg daily June 09, as was recommended by the Telepsych risk and insurance consultant. * Keep the Haldol as needed order for agitation, which was recommended also by Telepsychiatrist. * Other recommendations could also be followed if needed, such as the use of Depakote. On 06/15, the AIMEE Bliss and I saw him together and checked his memory and insight. T he patient is stable, has poor insight and poor short term memory. There are no changes to this plan as of today, except that he requested a cream for Athlete's foot treatment, which was ordered. We are awaiting placement. 2) Alcohol abuse Impression/Plan: As in #1 (3) Reversed sleep wake cycle Assessment/Plan: Chronic, predates hospital admit. Supportive care - ok to maintain current cycle. (4) Tarry stool Assessment/Plan: After presenting to the ICU, the patient had a guaiac pos. stool Cont Protonix po twice daily for treating a poss ulcer His Hgb has been stable and no further melena Plan: Will check his Hgb and Plt intermittently. Transfuse if hemoglobin drops under 7, or under 8 if he is actively bleeding. Cont to avoid any aspirin or NSAID products (5) Viral respiratory infection Assessment/Plan: Rhionvirus Positive on 05/23 Sx Resolved Ok to end droplet precautions 6) Placement/ Discharge Awaiting safe discharge daughter is working on getting guardianship and SS in volved it this process - Current Meds Current Meds: Current Medications Generic Name Dose Route Start Last Admin Trade Name Debby PRN Reason Stop Dose Admin Acetaminophen 650 mg 05/31/23 10:21 06/02/23 15:43 Acetaminophen 325 Mg Tablet PO 650 mg Q8HR PRN Administration Pain or Fever > 38C (100.4F) Ketoconazole 1 applic 06/18/23 10:20 06/18/23 10:45 Ketoconazole 2% Cream 15 Gm Tube TOP 1 applic BID MARY Administration Magnesium Oxide 400 mg 05/26/23 08:00 06/18/23 08:52 Magnesium Oxide 400 Mg Tablet PO 400 mg DAILYWM MARY Administration Multi-Ingredient Ointment 1 applic 05/23/23 12:08 05/30/23 08:38 Zinc Oxide 20% Oint 30 Gm Tube TOP 1 applic PRN PRN Administration Skin Care Nicotine 1 patch 06/13/23 09:00 06/18/23 08:53 Nicotine 7 Mg Patch TOP 1 patch DAILY MARY Administration Polyethylene Glycol 17 gm 05/30/23 09:00 06/18/23 08:58 Polyethylene Glycol 3350 17 Gm Packet PO 17 gm DAILY MARY Administration Potassium Chloride 20 meq 05/27/23 08:00 06/18/23 08:52 Potassium Chloride 10 Meq Capsule PO 20 meq DAILYWM MARY Administration Multivit/Folic Acid/Iron 1 tab 05/24/23 09:00 06/18/23 08:52 Vitamin Tablet PO 1 tab DAILY MARY Administration Thiamine HCl 250 mg 06/09/23 10:30 06/18/23 08:53 Thiamine 100 Mg Tablet PO 250 mg DAILY MARY Administration - Lab Result Fish Bone Diagrams: 06/19/23 04:19 06/19/23 04:19 - Additional Planning My Orders: My Active Orders 06/18/23 10:20 Ketoconazole 2% Cream [Nizoral 2% Cream] 1 applic TOP BID Subjective - Subjective Patient Reports: No Complaints Objective Vital Signs: Vital Signs - 24 hr 06/18/23 08:06 Temperature 36.8 C Heart Rate [ 93 Brachial] Respiratory 18 Rate Blood Pressure 110/81 H [Right Brachial artery] O2 Saturation 99 Oxygen O2 Source [Without Activity] Nasal cannula O2 Source Room air Oxygen Flow Rate 4 I&O (Last 24 Hrs): Intake and Output Totals x24h 06/16/23 06/17/23 06/18/23 23:59 23:59 23:59 Intake Total 2130 1360 1220 Balance 2130 1360 1220 General: Alert, Oriented x3 HEENT: Mucous membr. moist/pink Neck: Supple Neuro: Alert, Non Focal Cardiovascular: Regular rate Respiratory: No respiratory distress Abdomen: No tenderness Extremities: No clubbing, No edema, No tenderness/swelling - Results Results: Laboratory Results WBC 5.7 x10^3/uL (4.8-10.8) 06/14/23 05:14 RBC 4.22 10^6/uL (4.70-6.10) L 06/14/23 05:14 Hgb 12.8 g/dL (14.0-18.0) L 06/14/23 05:14 Hct 39.1 % (42.0-52.0) L 06/14/23 05:14 MCV 92.7 fL (80.0-94.0) 06/14/23 05:14 MCH 30.3 pg (27.0-31.0) 06/14/23 05:14 MCHC 32.7 g/dL (32.0-36.0) 06/14/23 05:14 RDW 15.6 % (12.0-15.0) H 06/14/23 05:14 Plt Count 174 10^3/uL (130-450) 06/14/23 05:14 MPV 12.2 fL (7.4-11.4) H 06/14/23 05:14 Neut # (Auto) 2.9 10^3/uL (1.5-6.6) 05/24/23 04:16 Lymph # (Auto) 0.6 10^3/uL (1.5-3.5) L 05/24/23 04:16 [place] # (Auto) 0.3 10^3/uL (0.0-1.0) 05/24/23 04:16 Eos # (Auto) 0.0 10^3/uL (0.0-0.7) 05/24/23 04:16 Baso # (Auto) 0.0 10^3/uL (0.0-0.1) 05/24/23 04:16 Absolute Nucleated RBC 0.00 x10^3/uL 05/24/23 04:16 Nucleated RBC % 0.0 /100WBC 05/24/23 04:16 Manual Slide Review Indicated 05/22/23 20:14 Platelet Estimate DECREASED (<130,000) (NORMAL) 05/22/23 20:14 Platelet Morphology NORMAL APPEARANCE (NORMAL) 05/22/23 20:14 RBC Morph Micro Appear NORMAL APPEARANCE (NORMAL) 05/22/23 20:14 PT 13.0 secs (9.9-12.6) H 05/24/23 04:16 INR 1.2 (0.8-1.2) 05/24/23 04:16 D-Dimer 730.4 ng/mL (200.0-255.0) H 05/23/23 07:31 VBG pH 7.463 (7.31-7.41) H 05/27/23 04:55 Ionized Calcium 1.09 mmol/L (1.15-1.33) L 05/27/23 04:55 Sodium 138 mmol/L (135-145) 06/14/23 05:14 Potassium 4.1 mmol/L (3.5-4.5) 06/14/23 05:14 Chloride 106 mmol/L (101-111) 06/14/23 05:14 Carbon Dioxide 26 mmol/L (21-32) 06/14/23 05:14 Anion Gap 6.0 (6-13) 06/14/23 05:14 BUN 15 mg/dL (6-20) 06/14/23 05:14 Creatinine 0.6 mg/dL (0.6-1.3) 06/14/23 05:14 Estimated GFR (MDRD) 136 (>89) 06/14/23 05:14 Glucose 89 mg/dL (74-104) 06/14/23 05:14 Calcium 9.4 mg/dL (8.5-10.3) 06/14/23 05:14 Phosphorus 3.7 mg/dL (3.7-7.2) 05/27/23 04:55 Magnesium 1.8 mg/dL (1.7-2.3) 06/04/23 04:45 Total Bilirubin 0.8 mg/dL (0.2-1.0) 05/27/23 10:45 AST 91 IU/L (10-42) H 05/27/23 10:45 ALT 89 IU/L (10-60) H 05/27/23 10:45 Alkaline Phosphatase 121 IU/L (42-121) 05/27/23 10:45 Ammonia 35.4 umol/L (7-35) H 05/26/23 04:29 B-Natriuretic Peptide 23 pg/mL (5-100) 05/23/23 07:31 Total Protein 6.4 g/dL (6.4-8.9) 05/27/23 10:45 Albumin 3.4 g/dL (3.2-5.5) 05/27/23 10:45 Globulin 3.0 g/dL (2.1-4.2) 05/27/23 10:45 Albumin/Globulin Ratio 1.1 (1.0-2.2) 05/27/23 10:45 Lipase 106 U/L (22-51) H 05/22/23 20:14 Urine Color DARK YELLOW 05/23/23 15:26 Urine Clarity CLEAR (CLEAR) 05/23/23 15:26 Urine pH 6.5 PH (5.0-7.5) 05/23/23 15:26 Ur Specific [place] 1.025 (1.002-1.030) 05/23/23 15:26 Urine Protein 100 mg/dL (NEGATIVE) H 05/23/23 15:26 Urine Glucose (UA) NEGATIVE mg/dL (NEGATIVE) 05/23/23 15:26 Urine Ketones 15 mg/dL (NEGATIVE) H 05/23/23 15:26 Urine Occult Blood SMALL (NEGATIVE) H 05/23/23 15:26 Urine Nitrite NEGATIVE (NEGATIVE) 05/23/23 15:26 Urine Bilirubin SMALL (NEGATIVE) H 05/23/23 15:26 Urine Urobilinogen 2 E.U./dL (NORMAL) H 05/23/23 15:26 Ur Leukocyte Esterase NEGATIVE (NEGATIVE) 05/23/23 15:26 Urine RBC 0-5 /HPF (0-5) 05/23/23 15:26 Urine WBC 0-3 /HPF (0-3) 05/23/23 15:26 Ur Squamous Epith Cells NONE SEEN (<= Few) 05/23/23 15:26 Urine Bacteria Rare /HPF (None Seen) 05/23/23 15:26 Ur Microscopic Review INDICATED 05/23/23 15:26 Urine Culture Comments NOT INDICATED 05/23/23 15:26 Nasal Adenovirus (PCR) NOT DETECTED 05/23/23 07:57 Nasal B. parapertussis DNA (PCR) NOT DETECTED 05/23/23 07:57 Nasal Coronavir 229E PCR NOT DETECTED 05/23/23 07:57 Nasal Coronavir HKU1 PCR NOT DETECTED 05/23/23 07:57 Nasal Coronavir NL63 PCR NOT DETECTED 05/23/23 07:57 Nasal Coronavir OC43 PCR NOT DETECTED 05/23/23 07:57 Nasal Enterovir/Rhinovir PCR DETECTED A 05/23/23 07:57 Nasal Influenza B PCR NOT DETECTED 05/23/23 07:57 Nasal Influenza A PCR NOT DETECTED 05/23/23 07:57 Nasal Parainfluen 1 PCR NOT DETECTED 05/23/23 07:57 Nasal Parainfluen 2 PCR NOT DETECTED 05/23/23 07:57 Nasal Parainfluen 3 PCR NOT DETECTED 05/23/23 07:57 Nasal Parainfluen 4 PCR NOT DETECTED 05/23/23 07:57 Nasal RSV (PCR) NOT DETECTED 05/23/23 07:57 Nasal Screen MRSA (PCR) NEGATIVE (NEGATIVE) 05/23/23 12:10 Nasal B.pertussis DNA PCR NOT DETECTED 05/23/23 07:57 Nasal C.pneumoniae (PCR) NOT DETECTED 05/23/23 07:57 Juan Daniel Human Metapneumo PCR NOT DETECTED 05/23/23 07:57 Nasal M.pneumoniae (PCR) NOT DETECTED 05/23/23 07:57 Nasal SARS-CoV-2 (PCR) NOT DETECTED 05/23/23 07:57 Urine Opiates Screen NEGATIVE (NEGATIVE) 05/23/23 15:26 Ur Oxycodone Screen NEGATIVE (NEGATIVE) 05/23/23 15:26 Urine Methadone Screen NEGATIVE (NEGATIVE) 05/23/23 15:26 Ur Propoxyphene Screen NEGATIVE (NEGATIVE) 05/23/23 15:26 Ur Barbiturates Screen POSITIVE (NEGATIVE) H 05/23/23 15:26 Ur Tricyclics Screen NEGATIVE (NEGATIVE) 05/23/23 15:26 Ur Phencyclidine Scrn NEGATIVE (NEGATIVE) 05/23/23 15:26 Ur Amphetamine Screen NEGATIVE (NEGATIVE) 05/23/23 15:26 U Methamphetamines Scrn NEGATIVE (NEGATIVE) 07/16/23 15:26 U Benzodiazepines Scrn POSITIVE (NEGATIVE) H 05/23/23 15:26 Urine Cocaine Screen NEGATIVE (NEGATIVE) 05/23/23 15:26 U Cannabinoids Screen POSITIVE (NEGATIVE) H 05/23/23 15:26 Ethyl Alcohol 291.5 mg/dL 05/22/23 20:14
[2023-06-19 04:50] LABS: HCT - HEMATOCRIT 40.6 % (42.0-52.0); HGB - HEMOGLOBIN 13.1 g/dL (14.0-18.0); MEAN CORPUSCULAR HGB CONC 32.3 g/dL (32.0-36.0); MEAN CORPUSCULAR VOLUME 92.9 fL (80.0-94.0); RED BLOOD COUNT 4.37 10^6/uL (4.70-6.10); RED CELL DISTRIBUTION WIDTH 15.8 % (12.0-15.0); WHITE BLOOD COUNT 5.2 x10^3/uL (4.8-10.8)
[2023-06-19 05:07] LABS: CALCIUM 9.5 mg/dL (8.5-10.3); CREATININE 0.6 mg/dL (0.6-1.3)
[2023-06-19] MEDS: NICOTINE 7 MG PATCH TOP SCH (08:31)
[2023-06-19] MEDS: KETOCONAZOLE 2% CREAM 15 GM TUBE TOP SCH ×2 (08:32→20:09)
[2023-06-19] MEDS: MAGNESIUM OXIDE 400 MG TABLET PO SCH (08:32)
[2023-06-19] MEDS: PRENATAL VITAMIN TABLET PO SCH (08:32)
[2023-06-19] MEDS: POTASSIUM CHLORIDE 10 MEQ CAPSULE PO SCH (08:32)
[2023-06-19] MEDS: polyethylene glycoL 3350 17 GM PACKET PO SCH (08:32)
[2023-06-19] MEDS: THIAMINE 100 MG TABLET PO SCH (08:32)
--- NOTE | 2023-06-19 12:06 | PROVIDER PROGRESS NOTE ---
Assessment/Plan - Problem List (1) Wernicke-Korsakoff syndrome (alcoholic) Assessment/Plan: On 05/31, his behavior was more aggressive, he was refusing to take any pills, he was saying that we are experimenting on his body, he was trying to get up on his own, he said that a light bulb exploded in his mouth that morning, he was looking for the light bulb in the garbage can, he refused to have his vital sig ns taken A Telepsych eval was ordered and it was done. The impression was that he was delirious. 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 Per court, has been deemed incapacitated. mastic worker to obtain paperwork to confirm it. Plan: * Started high-dose IV thiamine 500 mg 3 times daily for 3 days on 05/31-06/02, to be followed by 500 mg daily for 5 days June 03- We started him on oral thiamine 250 mg daily June 09, as was recommended by the Telepsych contract consultant. * Keep the Haldol as needed order for agitation, which was recommended also by Telepsychiatrist. * Other recommendations could also be followed if needed, such as the use of Depakote. On 06/15, the AIMEE Bliss and I saw him together and checked his memory and insight. T he patient is stable, has poor insight and poor short term memory. There are no changes to this plan as of today. We are awaiting placement. 2) Alcohol abuse Impression/Plan: As in #1 (3) Reversed sleep wake cycle Assessment/Plan: Chronic, predates hospital admit. Supportive care - ok to maintain current cycle. (4) Tarry stool Assessment/Plan: After presenting to the ICU, the patient had a guaiac pos. stool Cont Protonix po twice daily for treating a poss ulcer His Hgb has been stable and no further melena Plan: Will check his Hgb and Plt intermittently. Transfuse if hemoglobin drops under 7, or under 8 if he is actively bleeding. Cont to avoid any aspirin or NSAID products (5) Viral respiratory infection Assessment/Plan: Rhionvirus Positive on 05/23 Sx Resolved Ok to end droplet precautions 6) Placement/ Discharge Awaiting safe discharge daughter is working on getting guardianship and SS involved it this process - Current Meds Current Meds: Current Medications Generic Name Dose Route Start Last Admin Trade Name Freq PRN Reason Stop Dose Admin Acetaminophen 650 mg 05/31/23 10:21 06/02/23 15:43 Acetaminophen 325 Mg Tablet PO 650 mg Q8HR PRN Administration Pain or Fever > 38C (100.4F) Ketoconazole 1 applic 06/18/23 10:20 06/19/23 08:32 Ketoconazole 2% Cream 15 Gm Tube TOP 1 applic BID MARY Administration Magnesium Oxide 400 mg 05/26/23 08:00 06/19/23 08:32 Magnesium Oxide 400 Mg Tablet PO 400 mg DAILYWM MARY Administration Multi-Ingredient Ointment 1 applic 05/23/23 12:08 05/30/23 08:38 Zinc Oxide 20% Oint 30 Gm Tube TOP 1 applic PRN PRN Administration Skin Care Nicotine 1 patch 06/13/23 09:00 06/19/23 08:31 Nicotine 7 Mg Patch TOP 1 patch DAILY MARY Administration Polyethylene Glycol 17 gm 05/30/23 09:00 06/19/23 08:32 Polyethylene Glycol 3350 17 Gm Packet PO 17 gm DAILY MARY Administration Potassium Chloride 20 meq 05/27/23 08:00 06/19/23 08:32 Potassium Chloride 10 Meq Capsule PO 20 meq DAILYWM MARY Administration Multivit/Folic Acid/Iron 1 tab 05/24/23 09:00 06/19/23 08:32 Vitamin Tablet PO 1 tab DAILY MARY Administration Thiamine HCl 250 mg 06/09/23 10:30 06/19/23 08:32 Thiamine 100 Mg Tablet PO 250 mg DAILY MARY Administration - Lab Result Fish Bone Diagrams: 06/19/23 04:19 06/19/23 04:19 Subjective - Subjective Patient Reports: No Complaints Objective Vital Signs: Vital Signs - 24 hr 06/18/23 06/19/23 23:59 09:00 Temperature 36.4 C L 37.0 C Heart Rate [ 75 81 Brachial] Respiratory 18 18 Rate Blood Pressure 116/74 103/64 [Right Brachial artery] O2 Saturation 99 98 Oxygen O2 Source [Without Activity] Nasal cannula O2 Source Room air Oxygen Flow Rate 4 I&O (Last 24 Hrs): Intake and Output Totals x24h 06/17/23 06/18/23 06/19/23 23:59 23:59 23:59 Intake Total 1360 1670 240 Balance 1360 1670 240 General: Alert, Oriented x3 HEENT: Mucous membr. moist/pink Neck: Supple Neuro: Alert, Non Focal Cardiovascular: Regular rate Respiratory: No respiratory distress Abdomen: No tenderness Extremities: No clubbing, No edema, No tenderness/swelling - Results Results: Laboratory Results WBC 5.2 x10^3/uL (4.8-10.8) 06/19/23 04:19 RBC 4.37 10^6/uL (4.70-6.10) L 06/19/23 04:19 Hgb 13.1 g/dL (14.0-18.0) L 06/19/23 04:19 Hct 40.6 % (42.0-52.0) L 06/19/23 04:19 MCV 92.9 fL (80.0-94.0) 06/19/23 04:19 MCH 30.0 pg (27.0-31.0) 06/19/23 04:19 MCHC 32.3 g/dL (32.0-36.0) 06/19/23 04:19 RDW 15.8 % (12.0-15.0) H 06/19/23 04:19 Plt Count 150 10^3/uL (130-450) 06/19/23 04:19 MPV 13.0 fL (7.4-11.4) H 06/19/23 04:19 Neut # (Auto) 2.9 10^3/uL (1.5-6.6) 05/24/23 04:16 Lymph # (Auto) 0.6 10^3/uL (1.5-3.5) L 05/24/23 04:16 [place] # (Auto) 0.3 10^3/uL (0.0-1.0) 05/24/23 04:16 Eos # (Auto) 0.0 10^3/uL (0.0-0.7) 05/24/23 04:16 Baso # (Auto) 0.0 10^3/uL (0.0-0.1) 05/24/23 04:16 Absolute Nucleated RBC 0.00 x10^3/uL 05/24/23 04:16 Nucleated RBC % 0.0 /100WBC 05/24/23 04:16 Manual Slide Review Indicated 05/22/23 20:14 Platelet Estimate DECREASED (<130,000) (NORMAL) 05/22/23 20:14 Platelet Morphology NORMAL APPEARANCE (NORMAL) 05/22/23 20:14 RBC Morph Micro Appear NORMAL APPEARANCE (NORMAL) 05/22/23 20:14 PT 13.0 secs (9.9-12.6) H 05/24/23 04:16 INR 1.2 (0.8-1.2) 05/24/23 04:16 D-Dimer 730.4 ng/mL (200.0-255.0) H 05/23/23 07:31 VBG pH 7.463 (7.31-7.41) H 05/27/23 04:55 Ionized Calcium 1.09 mmol/L (1.15-1.33) L 05/27/23 04:55 Sodium 138 mmol/L (135-145) 06/19/23 04:19 Potassium 4.0 mmol/L (3.5-4.5) 06/19/23 04:19 Chloride 106 mmol/L (101-111) 06/19/23 04:19 Carbon Dioxide 27 mmol/L (21-32) 06/19/23 04:19 Anion Gap 5.0 (6-13) L 06/19/23 04:19 BUN 15 mg/dL (6-20) 06/19/23 04:19 Creatinine 0.6 mg/dL (0.6-1.3) 06/19/23 04:19 Estimated GFR (MDRD) 136 (>89) 06/19/23 04:19 Glucose 91 mg/dL (74-104) 06/19/23 04:19 Calcium 9.5 mg/dL (8.5-10.3) 06/19/23 04:19 Phosphorus 3.7 mg/dL (3.7-7.2) 05/27/23 04:55 Magnesium 1.8 mg/dL (1.7-2.3) 06/04/23 04:45 Total Bilirubin 0.8 mg/dL (0.2-1.0) 05/27/23 10:45 AST 91 IU/L (10-42) H 05/27/23 10:45 ALT 89 IU/L (10-60) H 05/27/23 10:45 Alkaline Phosphatase 121 IU/L (42-121) 05/27/23 10:45 Ammonia 35.4 umol/L (7-35) H 05/26/23 04:29 B-Natriuretic Peptide 23 pg/mL (5-100) 05/23/23 07:31 Total Protein 6.4 g/dL (6.4-8.9) 05/27/23 10:45 Albumin 3.4 g/dL (3.2-5.5) 05/27/23 10:45 Globulin 3.0 g/dL (2.1-4.2) 05/27/23 10:45 Albumin/Globulin Ratio 1.1 (1.0-2.2) 05/27/23 10:45 Lipase 106 U/L (22-51) H 05/22/23 20:14 Urine Color DARK YELLOW 05/23/23 15:26 Urine Clarity CLEAR (CLEAR) 05/23/23 15:26 Urine pH 6.5 PH (5.0-7.5) 05/23/23 15:26 Ur Specific [place] 1.025 (1.002-1.030) 05/23/23 15:26 Urine Protein 100 mg/dL (NEGATIVE) H 05/23/23 15:26 Urine Glucose (UA) NEGATIVE mg/dL (NEGATIVE) 05/23/23 15:26 Urine Ketones 15 mg/dL (NEGATIVE) H 05/23/23 15:26 Urine Occult Blood SMALL (NEGATIVE) H 05/23/23 15:26 Urine Nitrite NEGATIVE (NEGATIVE) 05/23/23 15:26 Urine Bilirubin SMALL (NEGATIVE) H 05/23/23 15:26 Urine Urobilinogen 2 E.U./dL (NORMAL) H 05/23/23 15:26 Ur Leukocyte Esterase NEGATIVE (NEGATIVE) 05/23/23 15:26 Urine RBC 0-5 /HPF (0-5) 05/23/23 15:26 Urine WBC 0-3 /HPF (0-3) 05/23/23 15:26 Ur Squamous Epith Cells NONE SEEN (<= Few) 05/23/23 15:26 Urine Bacteria Rare /HPF (None Seen) 05/23/23 15:26 Ur Microscopic Review INDICATED 05/23/23 15:26 Urine Culture Comments NOT INDICATED 05/23/23 15:26 Nasal Adenovirus (PCR) NOT DETECTED 05/23/23 07:57 Nasal B. parapertussis DNA (PCR) NOT DETECTED 05/23/23 07:57 Nasal Coronavir 229E PCR NOT DETECTED 05/23/23 07:57 Nasal Coronavir HKU1 PCR NOT DETECTED 05/23/23 07:57 Nasal Coronavir NL63 PCR NOT DETECTED 05/23/23 07:57 Nasal Coronavir OC43 PCR NOT DETECTED 05/23/23 07:57 Nasal Enterovir/Rhinovir PCR DETECTED A 05/23/23 07:57 Nasal Influenza B PCR NOT DETECTED 05/23/23 07:57 Nasal Influenza A PCR NOT DETECTED 05/23/23 07:57 Nasal Parainfluen 1 PCR NOT DETECTED 05/23/23 07:57 Nasal Parainfluen 2 PCR NOT DETECTED 05/23/23 07:57 Nasal Parainfluen 3 PCR NOT DETECTED 05/23/23 07:57 Nasal Parainfluen 4 PCR NOT DETECTED 05/23/23 07:57 Nasal RSV (PCR) NOT DETECTED 05/23/23 07:57 Nasal Screen MRSA (PCR) NEGATIVE (NEGATIVE) 05/23/23 12:10 Nasal B.pertussis DNA PCR NOT DETECTED 05/23/23 07:57 Nasal C.pneumoniae (PCR) NOT DETECTED 05/23/23 07:57 Juan Daniel Human Metapneumo PCR NOT DETECTED 05/23/23 07:57 Nasal M.pneumoniae (PCR) NOT DETECTED 05/23/23 07:57 Nasal SARS-CoV-2 (PCR) NOT DETECTED 05/23/23 07:57 Urine Opiates Screen NEGATIVE (NEGATIVE) 05/23/23 15:26 Ur Oxycodone Screen NEGATIVE (NEGATIVE) 05/23/23 15:26 Urine Methadone Screen NEGATIVE (NEGATIVE) 05/23/23 15:26 Ur Propoxyphene Screen NEGATIVE (NEGATIVE) 05/23/23 15:26 Ur Barbiturates Screen POSITIVE (NEGATIVE) H 05/23/23 15:26 Ur Tricyclics Screen NEGATIVE (NEGATIVE) 05/23/23 15:26 Ur Phencyclidine Scrn NEGATIVE (NEGATIVE) 05/23/23 15:26 Ur Amphetamine Screen NEGATIVE (NEGATIVE) 05/23/23 15:26 U Methamphetamines Scrn NEGATIVE (NEGATIVE) 05/23/23 15:26 U Benzodiazepines Scrn POSITIVE (NEGATIVE) H 05/23/23 15:26 Urine Cocaine Screen NEGATIVE (NEGATIVE) 05/23/23 15:26 U Cannabinoids Screen POSITIVE (NEGATIVE) H 05/23/23 15:26 Ethyl Alcohol 291.5 mg/dL 05/22/23 20:14
[2023-06-20] MEDS: NICOTINE 7 MG PATCH TOP SCH (08:53)
[2023-06-20] MEDS: POTASSIUM CHLORIDE 10 MEQ CAPSULE PO SCH (08:53)
[2023-06-20] MEDS: PRENATAL VITAMIN TABLET PO SCH (08:54)
[2023-06-20] MEDS: MAGNESIUM OXIDE 400 MG TABLET PO SCH (08:54)
[2023-06-20] MEDS: THIAMINE 100 MG TABLET PO SCH (08:54)
[2023-06-20] MEDS: KETOCONAZOLE 2% CREAM 15 GM TUBE TOP SCH ×2 (08:54→19:43)
[2023-06-20] MEDS: polyethylene glycoL 3350 17 GM PACKET PO SCH (08:54)
--- NOTE | 2023-06-20 13:11 | PROVIDER PROGRESS NOTE ---
Assessment/Plan - Problem List (1) Wernicke-Korsakoff syndrome (alcoholic) Assessment/Plan: On 05/31, his behavior was more aggressive, he was refusing to take any pills, he was saying that we are experimenting on his body, he was trying to get up on his own, he said that a light bulb exploded in his mouth that morning, he was looking for the light bulb in the garbage can, he refused to have his vital sig ns taken A Telepsych eval was ordered and it was done. The impression was that he was delirious. 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 Per court, has been deemed incapacitated. button station worker to obtain paperwork to confirm it. Plan: * Started high-dose IV thiamine 500 mg 3 times daily for 3 days on 05/31-06/02, to be followed by 500 mg daily for 5 days June 03- We started him on oral thiamine 250 mg daily June 09, as was recommended by the Telepsych peoplesoft consultant. * Keep the Haldol as needed order for agitation, which was recommended also by Telepsychiatrist. * Other recommendations could also be followed if needed, such as the use of Depakote. On 06/15, the AIMEE Bliss and I saw him together and checked his memory and insight. T he patient is stable, has poor insight and poor short term memory. There are no changes to this plan as of today. We are awaiting placement. 2) Alcohol abuse Impression/Plan: As in #1 (3) Reversed sleep wake cycle Assessment/Plan: Chronic, predates hospital admit. Supportive care - ok to maintain current cycle. (4) Tarry stool Assessment/Plan: After presenting to the ICU, the patient had a guaiac pos. stool Cont Protonix po twice daily for treating a poss ulcer His Hgb has been stable and no further melena Plan: Will check his Hgb and Plt intermittently. Transfuse if hemoglobin drops under 7, or under 8 if he is actively bleeding. Cont to avoid any aspirin or NSAID products (5) Viral respiratory infection Assessment/Plan: Rhionvirus Positive on 05/23 Sx Resolved Ok to end droplet precautions 6) Placement/ Discharge Awaiting safe discharge daughter is working on getting guardianship and SS involved it this process - Current Meds Current Meds: Current Medications Generic Name Dose Route Start Last Admin Trade Name Freq PRN Reason Stop Dose Admin Acetaminophen 650 mg 05/31/23 10:21 06/02/23 15:43 Acetaminophen 325 Mg Tablet PO 650 mg Q8HR PRN Administration Pain or Fever > 38C (100.4F) Ketoconazole 1 applic 06/18/23 10:20 06/20/23 08:54 Ketoconazole 2% Cream 15 Gm Tube TOP 1 applic BID MARY Administration Magnesium Oxide 400 mg 05/26/23 08:00 06/20/23 08:54 Magnesium Oxide 400 Mg Tablet PO 400 mg DAILYWM MARY Administration Multi-Ingredient Ointment 1 applic 05/23/23 12:08 05/30/23 08:38 Zinc Oxide 20% Oint 30 Gm Tube TOP 1 applic PRN PRN Administration Skin Care Nicotine 1 patch 06/13/23 09:00 06/20/23 08:53 Nicotine 7 Mg Patch TOP 1 patch DAILY MARY Administration Polyethylene Glycol 17 gm 05/30/23 09:00 06/20/23 08:54 Polyethylene Glycol 3350 17 Gm Packet PO Not Given DAILY MARY Potassium Chloride 20 meq 05/27/23 08:00 06/20/23 08:53 Potassium Chloride 10 Meq Capsule PO 20 meq DAILYWM MARY Administration Multivit/Folic Acid/Iron 1 tab 05/24/23 09:00 06/20/23 08:54 Vitamin Tablet PO 1 tab DAILY MARY Administration Thiamine HCl 250 mg 06/09/23 10:30 06/20/23 08:54 Thiamine 100 Mg Tablet PO 250 mg DAILY MARY Administration - Lab Result Fish Bone Diagrams: 06/19/23 04:19 06/19/23 04:19 Subjective - Subjective Patient Reports: No Complaints Objective Vital Signs: Vital Signs - 24 hr 06/20/23 08:40 Temperature 36.5 C Heart Rate [ 78 Brachial] Respiratory 18 Rate Blood Pressure 106/69 [Right Brachial artery] O2 Saturation 99 Oxygen O2 Source [Without Activity] Nasal cannula O2 Source Room air Oxygen Flow Rate 4 I&O (Last 24 Hrs): Intake and Output Totals x24h 06/18/23 06/19/23 06/20/23 23:59 23:59 23:59 Intake Total 1670 2450 380 Balance 1670 2450 380 General: Alert, Oriented x3 HEENT: Mucous membr. moist/pink Neck: Supple Neuro: Alert, Non Focal Cardiovascular: Regular rate Respiratory: No respiratory distress Abdomen: Other (No distension) Extremities: No clubbing, No edema, No tenderness/swelling - Results Results: Laboratory Results WBC 5.2 x10^3/uL (4.8-10.8) 06/19/23 04:19 RBC 4.37 10^6/uL (4.70-6.10) L 06/19/23 04:19 Hgb 13.1 g/dL (14.0-18.0) L 06/19/23 04:19 Hct 40.6 % (42.0-52.0) L 06/19/23 04:19 MCV 92.9 fL (80.0-94.0) 06/19/23 04:19 MCH 30.0 pg (27.0-31.0) 06/19/23 04:19 MCHC 32.3 g/dL (32.0-36.0) 06/19/23 04:19 RDW 15.8 % (12.0-15.0) H 06/19/23 04:19 Plt Count 150 10^3/uL (130-450) 06/19/23 04:19 MPV 13.0 fL (7.4-11.4) H 06/19/23 04:19 Neut # (Auto) 2.9 10^3/uL (1.5-6.6) 05/24/23 04:16 Lymph # (Auto) 0.6 10^3/uL (1.5-3.5) L 05/24/23 04:16 [place] # (Auto) 0.3 10^3/uL (0.0-1.0) 05/24/23 04:16 Eos # (Auto) 0.0 10^3/uL (0.0-0.7) 05/24/23 04:16 Baso # (Auto) 0.0 10^3/uL (0.0-0.1) 05/24/23 04:16 Absolute Nucleated RBC 0.00 x10^3/uL 05/24/23 04:16 Nucleated RBC % 0.0 /100WBC 05/24/23 04:16 Manual Slide Review Indicated 05/22/23 20:14 Platelet Estimate DECREASED (<130,000) (NORMAL) 05/22/23 20:14 Platelet Morphology NORMAL APPEARANCE (NORMAL) 05/22/23 20:14 RBC Morph Micro Appear NORMAL APPEARANCE (NORMAL) 05/22/23 20:14 PT 13.0 secs (9.9-12.6) H 05/24/23 04:16 INR 1.2 (0.8-1.2) 05/24/23 04:16 D-Dimer 730.4 ng/mL (200.0-255.0) H 05/23/23 07:31 VBG pH 7.463 (7.31-7.41) H 05/27/23 04:55 Ionized Calcium 1.09 mmol/L (1.15-1.33) L 05/27/23 04:55 Sodium 138 mmol/L (135-145) 06/19/23 04:19 Potassium 4.0 mmol/L (3.5-4.5) 06/19/23 04:19 Chloride 106 mmol/L (101-111) 06/19/23 04:19 Carbon Dioxide 27 mmol/L (21-32) 06/19/23 04:19 Anion Gap 5.0 (6-13) L 06/19/23 04:19 BUN 15 mg/dL (6-20) 06/19/23 04:19 Creatinine 0.6 mg/dL (0.6-1.3) 06/19/23 04:19 Estimated GFR (MDRD) 136 (>89) 06/19/23 04:19 Glucose 91 mg/dL (74-104) 06/19/23 04:19 Calcium 9.5 mg/dL (8.5-10.3) 06/19/23 04:19 Phosphorus 3.7 mg/dL (3.7-7.2) 05/27/23 04:55 Magnesium 1.8 mg/dL (1.7-2.3) 06/04/23 04:45 Total Bilirubin 0.8 mg/dL (0.2-1.0) 05/27/23 10:45 AST 91 IU/L (10-42) H 05/27/23 10:45 ALT 89 IU/L (10-60) H 05/27/23 10:45 Alkaline Phosphatase 121 IU/L (42-121) 05/27/23 10:45 Ammonia 35.4 umol/L (7-35) H 05/26/23 04:29 B-Natriuretic Peptide 23 pg/mL (5-100) 05/23/23 07:31 Total Protein 6.4 g/dL (6.4-8.9) 05/27/23 10:45 Albumin 3.4 g/dL (3.2-5.5) 05/27/23 10:45 Globulin 3.0 g/dL (2.1-4.2) 05/27/23 10:45 Albumin/Globulin Ratio 1.1 (1.0-2.2) 05/27/23 10:45 Lipase 106 U/L (22-51) H 05/22/23 20:14 Urine Color DARK YELLOW 05/23/23 15:26 Urine Clarity CLEAR (CLEAR) 05/23/23 15:26 Urine pH 6.5 PH (5.0-7.5) 05/23/23 15:26 Ur Specific [place] 1.025 (1.002-1.030) 05/23/23 15:26 Urine Protein 100 mg/dL (NEGATIVE) H 05/23/23 15:26 Urine Glucose (UA) NEGATIVE mg/dL (NEGATIVE) 05/23/23 15:26 Urine Ketones 15 mg/dL (NEGATIVE) H 05/23/23 15:26 Urine Occult Blood SMALL (NEGATIVE) H 05/23/23 15:26 Urine Nitrite NEGATIVE (NEGATIVE) 05/23/23 15:26 Urine Bilirubin SMALL (NEGATIVE) H 05/23/23 15:26 Urine Urobilinogen 2 E.U./dL (NORMAL) H 05/23/23 15:26 Ur Leukocyte Esterase NEGATIVE (NEGATIVE) 05/23/23 15:26 Urine RBC 0-5 /HPF (0-5) 05/23/23 15:26 Urine WBC 0-3 /HPF (0-3) 05/23/23 15:26 Ur Squamous Epith Cells NONE SEEN (<= Few) 05/23/23 15:26 Urine Bacteria Rare /HPF (None Seen) 05/23/23 15:26 Ur Microscopic Review INDICATED 05/23/23 15:26 Urine Culture Comments NOT INDICATED 05/23/23 15:26 Nasal Adenovirus (PCR) NOT DETECTED 05/23/23 07:57 Nasal B. parapertussis DNA (PCR) NOT DETECTED 05/23/23 07:57 Nasal Coronavir 229E PCR NOT DETECTED 05/23/23 07:57 Nasal Coronavir HKU1 PCR NOT DETECTED 05/23/23 07:57 Nasal Coronavir NL63 PCR NOT DETECTED 05/23/23 07:57 Nasal Coronavir OC43 PCR NOT DETECTED 05/23/23 07:57 Nasal Enterovir/Rhinovir PCR DETECTED A 05/23/23 07:57 Nasal Influenza B PCR NOT DETECTED 05/23/23 07:57 Nasal Influenza A PCR NOT DETECTED 05/23/23 07:57 Nasal Parainfluen 1 PCR NOT DETECTED 05/23/23 07:57 Nasal Parainfluen 2 PCR NOT DETECTED 05/23/23 07:57 Nasal Parainfluen 3 PCR NOT DETECTED 05/23/23 07:57 Nasal Parainfluen 4 PCR NOT DETECTED 05/23/23 07:57 Nasal RSV (PCR) NOT DETECTED 05/23/23 07:57 Nasal Screen MRSA (PCR) NEGATIVE (NEGATIVE) 05/23/23 12:10 Nasal B.pertussis DNA PCR NOT DETECTED 05/23/23 07:57 Nasal C.pneumoniae (PCR) NOT DETECTED 05/23/23 07:57 Juan Daniel Human Metapneumo PCR NOT DETECTED 05/23/23 07:57 Nasal M.pneumoniae (PCR) NOT DETECTED 05/23/23 07:57 Nasal SARS-CoV-2 (PCR) NOT DETECTED 05/23/23 07:57 Urine Opiates Screen NEGATIVE (NEGATIVE) 05/23/23 15:26 Ur Oxycodone Screen NEGATIVE (NEGATIVE) 05/23/23 15:26 Urine Methadone Screen NEGATIVE (NEGATIVE) 05/23/23 15:26 Ur Propoxyphene Screen NEGATIVE (NEGATIVE) 05/23/23 15:26 Ur Barbiturates Screen POSITIVE (NEGATIVE) H 05/23/23 15:26 Ur Tricyclics Screen NEGATIVE (NEGATIVE) 05/23/23 15:26 Ur Phencyclidine Scrn NEGATIVE (NEGATIVE) 05/23/23 15:26 Ur Amphetamine Screen NEGATIVE (NEGATIVE) 05/23/23 15:26 U Methamphetamines Scrn NEGATIVE (NEGATIVE) 05/23/23 15:26 U Benzodiazepines Scrn POSITIVE (NEGATIVE) H 05/23/23 15:26 Urine Cocaine Screen NEGATIVE (NEGATIVE) 05/23/23 15:26 U Cannabinoids Screen POSITIVE (NEGATIVE) H 05/23/23 15:26 Ethyl Alcohol 291.5 mg/dL 05/22/23 20:14
[2023-06-21] MEDS: ACETAMINOPHEN 325 MG TABLET PO PRN (04:46)
[2023-06-21] MEDS: POTASSIUM CHLORIDE 10 MEQ CAPSULE PO SCH (07:55)
[2023-06-21] MEDS: THIAMINE 100 MG TABLET PO SCH (07:55)
[2023-06-21] MEDS: PRENATAL VITAMIN TABLET PO SCH (07:55)
[2023-06-21] MEDS: MAGNESIUM OXIDE 400 MG TABLET PO SCH (07:56)
[2023-06-21] MEDS: polyethylene glycoL 3350 17 GM PACKET PO SCH (07:56)
[2023-06-21] MEDS: KETOCONAZOLE 2% CREAM 15 GM TUBE TOP SCH ×2 (07:56→19:21)
[2023-06-21] MEDS: NICOTINE 7 MG PATCH TOP SCH (07:57)
--- NOTE | 2023-06-21 17:37 | PROVIDER PROGRESS NOTE ---
Assessment/Plan - Problem List (1) Wernicke-Korsakoff syndrome (alcoholic) Assessment/Plan: On 05/31, his behavior was more aggressive, he was refusing to take any pills, he was saying that we are experimenting on his body, he was trying to get up on his own, he said that a light bulb exploded in his mouth that morning, he was looking for the light bulb in the garbage can, he refused to have his vital sig ns taken A Telepsych eval was ordered and it was done. The impression was that he was delirious. Telepsych confirmed that he probably has Wernicke Korsakoff syndrome and that he was cognitively impaired. Per court, has been deemed incapacitated. networker obtained paperwork to confirm it. * He got high-dose IV thiamine 500 mg 3 times daily for 3 days on 05/31-06/02, to be followed by 500 mg daily for 5 days June 03- We started him on oral thiamine 250 mg daily June 09, as was recommended by the Telepsych [employer] consultant. * The Haldol as needed ordered for agitation, which was recommended also by Telepsychiatrist, anf if needed, the use of Depakote. * He has completed his Librium taper and we have not had to treat agitation for over a week. On 06/15, the Ruthy and I saw him together and checked his memory and insight. The patien had poor insight and poor short term memory. Today 06/21, I spoke to him about his plans after discharge and he was able to tell me he wants to live in a Clean and Sober Facility, he called one and can be accepted. He also had insight into why he relapsed this time: it was after visiting his son's grave and the location where the son . He discussed how much he benefitted from AA meetings. His sister in [place] has agreed to be his AA sponsor. I passed this info to Ruthy in today who then discussed with him other Sober living houses that he can reach out to. There are no changes to this plan as of today. We are awaiting placement. 2) Alcohol abuse Impression/Plan: As in #1 (3) Reversed sleep wake cycle Assessment/Plan: Chronic, predated hospital admit. Supportive care - ok to maintain current cycle. (4) Tarry stool Assessment/Plan: After presenting to the ICU, the patient had a guaiac pos. stool He was on Protonix po twice daily for treating a poss ulcer His Hgb has been stable and no further melena. Protonix was stopped 06/18. Plan: Cont to avoid any aspirin or NSAID products (5) Viral respiratory infection Assessment/Plan: Rhionvirus Positive on 05/23 Sx Resolved and we ended droplet precautions 6) Placement/ Discharge Awaiting safe discharge, daughter was working on getting guardianship. Today the patient has chosen his sister in [place] as his medical DPOA, per our SW. - Current Meds Current Meds: Current Medications Generic Name Dose Route Start Last Admin Trade Name Freq PRN Reason Stop Dose Admin Acetaminophen 650 mg 05/31/23 10:21 06/21/23 04:46 Acetaminophen 325 Mg Tablet PO 650 mg Q8HR PRN Administration Pain or Fever > 38C (100.4F) Ketoconazole 1 applic 06/18/23 10:20 06/21/23 07:56 Ketoconazole 2% Cream 15 Gm Tube TOP 1 applic BID MARY Administration Magnesium Oxide 400 mg 05/26/23 08:00 06/21/23 07:56 Magnesium Oxide 400 Mg Tablet PO 400 mg DAILYWM MARY Administration Multi-Ingredient Ointment 1 applic 05/23/23 12:08 05/30/23 08:38 Zinc Oxide 20% Oint 30 Gm Tube TOP 1 applic PRN PRN Administration Skin Care Nicotine 1 patch 06/13/23 09:00 06/21/23 07:57 Nicotine 7 Mg Patch TOP 1 patch DAILY MARY Administration Polyethylene Glycol 17 gm 05/30/23 09:00 06/21/23 07:56 Polyethylene Glycol 3350 17 Gm Packet PO Not Given DAILY MARY Potassium Chloride 20 meq 05/27/23 08:00 06/21/23 07:55 Potassium Chloride 10 Meq Capsule PO 20 meq DAILYWM MARY Administration Multivit/Folic Acid/Iron 1 tab 05/24/23 09:00 06/21/23 07:55 Vitamin Tablet PO 1 tab DAILY MARY Administration Thiamine HCl 250 mg 06/09/23 10:30 06/21/23 07:55 Thiamine 100 Mg Tablet PO 250 mg DAILY MARY Administration - Lab Result Fish Bone Diagrams: 06/19/23 04:19 06/19/23 04:19 Subjective - Subjective Patient Reports: Feeling Better Objective Vital Signs: Vital Signs - 24 hr 06/21/23 07:48 Temperature 37.0 C Heart Rate [ 83 Brachial] Respiratory 18 Rate Blood Pressure 126/79 [Right Brachial artery] O2 Saturation 97 Oxygen O2 Source [Without Activity] Nasal cannula O2 Source Room air Oxygen Flow Rate 4 I&O (Last 24 Hrs): Intake and Output Totals x24h 06/19/23 06/20/23 06/21/23 23:59 23:59 23:59 Intake Total 2450 2260 1480 Balance 2450 2260 1480 General: Alert, Oriented x3 HEENT: Mucous membr. moist/pink, Other (Is clean shaven) Neck: Supple Neuro: Alert, Non Focal Cardiovascular: Regular rate, No murmurs Respiratory: No respiratory distress Abdomen: Soft Extremities: No clubbing, No edema - Results Results: Laboratory Results WBC 5.2 x10^3/uL (4.8-10.8) 06/19/23 04:19 RBC 4.37 10^6/uL (4.70-6.10) L 06/19/23 04:19 Hgb 13.1 g/dL (14.0-18.0) L 06/19/23 04:19 Hct 40.6 % (42.0-52.0) L 06/19/23 04:19 MCV 92.9 fL (80.0-94.0) 06/19/23 04:19 MCH 30.0 pg (27.0-31.0) 06/19/23 04:19 MCHC 32.3 g/dL (32.0-36.0) 06/19/23 04:19 RDW 15.8 % (12.0-15.0) H 06/19/23 04:19 Plt Count 150 10^3/uL (130-450) 06/19/23 04:19 MPV 13.0 fL (7.4-11.4) H 06/19/23 04:19 Neut # (Auto) 2.9 10^3/uL (1.5-6.6) 05/24/23 04:16 Lymph # (Auto) 0.6 10^3/uL (1.5-3.5) L 05/24/23 04:16 [place] # (Auto) 0.3 10^3/uL (0.0-1.0) 05/24/23 04:16 Eos # (Auto) 0.0 10^3/uL (0.0-0.7) 05/24/23 04:16 Baso # (Auto) 0.0 10^3/uL (0.0-0.1) 05/24/23 04:16 Absolute Nucleated RBC 0.00 x10^3/uL 05/24/23 04:16 Nucleated RBC % 0.0 /100WBC 05/24/23 04:16 Manual Slide Review Indicated 05/22/23 20:14 Platelet Estimate DECREASED (<130,000) (NORMAL) 05/22/23 20:14 Platelet Morphology NORMAL APPEARANCE (NORMAL) 05/22/23 20:14 RBC Morph Micro Appear NORMAL APPEARANCE (NORMAL) 05/22/23 20:14 PT 13.0 secs (9.9-12.6) H 05/24/23 04:16 INR 1.2 (0.8-1.2) 05/24/23 04:16 D-Dimer 730.4 ng/mL (200.0-255.0) H 05/23/23 07:31 VBG pH 7.463 (7.31-7.41) H 05/27/23 04:55 Ionized Calcium 1.09 mmol/L (1.15-1.33) L 05/27/23 04:55 Sodium 138 mmol/L (135-145) 06/19/23 04:19 Potassium 4.0 mmol/L (3.5-4.5) 06/19/23 04:19 Chloride 106 mmol/L (101-111) 06/19/23 04:19 Carbon Dioxide 27 mmol/L (21-32) 06/19/23 04:19 Anion Gap 5.0 (6-13) L 06/19/23 04:19 BUN 15 mg/dL (6-20) 06/19/23 04:19 Creatinine 0.6 mg/dL (0.6-1.3) 06/19/23 04:19 Estimated GFR (MDRD) 136 (>89) 06/19/23 04:19 Glucose 91 mg/dL (74-104) 06/19/23 04:19 Calcium 9.5 mg/dL (8.5-10.3) 06/19/23 04:19 Phosphorus 3.7 mg/dL (3.7-7.2) 05/27/23 04:55 Magnesium 1.8 mg/dL (1.7-2.3) 06/04/23 04:45 Total Bilirubin 0.8 mg/dL (0.2-1.0) 05/27/23 10:45 AST 91 IU/L (10-42) H 05/27/23 10:45 ALT 89 IU/L (10-60) H 05/27/23 10:45 Alkaline Phosphatase 121 IU/L (42-121) 05/27/23 10:45 Ammonia 35.4 umol/L (7-35) H 05/26/23 04:29 B-Natriuretic Peptide 23 pg/mL (5-100) 05/23/23 07:31 Total Protein 6.4 g/dL (6.4-8.9) 05/27/23 10:45 Albumin 3.4 g/dL (3.2-5.5) 05/27/23 10:45 Globulin 3.0 g/dL (2.1-4.2) 05/27/23 10:45 Albumin/Globulin Ratio 1.1 (1.0-2.2) 05/27/23 10:45 Lipase 106 U/L (22-51) H 05/22/23 20:14 Urine Color DARK YELLOW 05/23/23 15:26 Urine Clarity CLEAR (CLEAR) 05/23/23 15:26 Urine pH 6.5 PH (5.0-7.5) 05/23/23 15:26 Ur Specific [place] 1.025 (1.002-1.030) 05/23/23 15:26 Urine Protein 100 mg/dL (NEGATIVE) H 05/23/23 15:26 Urine Glucose (UA) NEGATIVE mg/dL (NEGATIVE) 05/23/23 15:26 Urine Ketones 15 mg/dL (NEGATIVE) H 05/23/23 15:26 Urine Occult Blood SMALL (NEGATIVE) H 05/23/23 15:26 Urine Nitrite NEGATIVE (NEGATIVE) 05/23/23 15:26 Urine Bilirubin SMALL (NEGATIVE) H 05/23/23 15:26 Urine Urobilinogen 2 E.U./dL (NORMAL) H 05/23/23 15:26 Ur Leukocyte Esterase NEGATIVE (NEGATIVE) 05/23/23 15:26 Urine RBC 0-5 /HPF (0-5) 05/23/23 15:26 Urine WBC 0-3 /HPF (0-3) 05/23/23 15:26 Ur Squamous Epith Cells NONE SEEN (<= Few) 05/23/23 15:26 Urine Bacteria Rare /HPF (None Seen) 05/23/23 15:26 Ur Microscopic Review INDICATED 05/23/23 15:26 Urine Culture Comments NOT INDICATED 05/23/23 15:26 Nasal Adenovirus (PCR) NOT DETECTED 05/23/23 07:57 Nasal B. parapertussis DNA (PCR) NOT DETECTED 05/23/23 07:57 Nasal Coronavir 229E PCR NOT DETECTED 05/23/23 07:57 Nasal Coronavir HKU1 PCR NOT DETECTED 05/23/23 07:57 Nasal Coronavir NL63 PCR NOT DETECTED 05/23/23 07:57 Nasal Coronavir OC43 PCR NOT DETECTED 05/23/23 07:57 Nasal Enterovir/Rhinovir PCR DETECTED A 05/23/23 07:57 Nasal Influenza B PCR NOT DETECTED 05/23/23 07:57 Nasal Influenza A PCR NOT DETECTED 05/23/23 07:57 Nasal Parainfluen 1 PCR NOT DETECTED 05/23/23 07:57 Nasal Parainfluen 2 PCR NOT DETECTED 05/23/23 07:57 Nasal Parainfluen 3 PCR NOT DETECTED 05/23/23 07:57 Nasal Parainfluen 4 PCR NOT DETECTED 05/23/23 07:57 Nasal RSV (PCR) NOT DETECTED 05/23/23 07:57 Nasal Screen MRSA (PCR) NEGATIVE (NEGATIVE) 05/23/23 12:10 Nasal B.pertussis DNA PCR NOT DETECTED 05/23/23 07:57 Nasal C.pneumoniae (PCR) NOT DETECTED 05/23/23 07:57 Juan Daniel Human Metapneumo PCR NOT DETECTED 05/23/23 07:57 Nasal M.pneumoniae (PCR) NOT DETECTED 05/23/23 07:57 Nasal SARS-CoV-2 (PCR) NOT DETECTED 05/23/23 07:57 Urine Opiates Screen NEGATIVE (NEGATIVE) 05/23/23 15:26 Ur Oxycodone Screen NEGATIVE (NEGATIVE) 05/23/23 15:26 Urine Methadone Screen NEGATIVE (NEGATIVE) 05/23/23 15:26 Ur Propoxyphene Screen NEGATIVE (NEGATIVE) 05/23/23 15:26 Ur Barbiturates Screen POSITIVE (NEGATIVE) H 05/23/23 15:26 Ur Tricyclics Screen NEGATIVE (NEGATIVE) 05/23/23 15:26 Ur Phencyclidine Scrn NEGATIVE (NEGATIVE) 05/23/23 15:26 Ur Amphetamine Screen NEGATIVE (NEGATIVE) 05/23/23 15:26 U Methamphetamines Scrn NEGATIVE (NEGATIVE) 05/23/23 15:26 U Benzodiazepines Scrn POSITIVE (NEGATIVE) H 05/23/23 15:26 Urine Cocaine Screen NEGATIVE (NEGATIVE) 05/23/23 15:26 U Cannabinoids Screen POSITIVE (NEGATIVE) H 05/23/23 15:26 Ethyl Alcohol 291.5 mg/dL 05/22/23 20:14
[2023-06-22] MEDS: NICOTINE 7 MG PATCH TOP SCH (08:30)
[2023-06-22] MEDS: POTASSIUM CHLORIDE 10 MEQ CAPSULE PO SCH (08:30)
[2023-06-22] MEDS: PRENATAL VITAMIN TABLET PO SCH (08:30)
[2023-06-22] MEDS: polyethylene glycoL 3350 17 GM PACKET PO SCH (08:31)
[2023-06-22] MEDS: THIAMINE 100 MG TABLET PO SCH (08:31)
[2023-06-22] MEDS: MAGNESIUM OXIDE 400 MG TABLET PO SCH (08:31)
[2023-06-22] MEDS: KETOCONAZOLE 2% CREAM 15 GM TUBE TOP SCH ×2 (08:33→21:30)
--- NOTE | 2023-06-22 16:11 | PROVIDER PROGRESS NOTE ---
Assessment/Plan - Problem List (1) Wernicke-Korsakoff syndrome (alcoholic) Assessment/Plan: On 05/31, his behavior was more aggressive, he was refusing to take any pills, he was saying that we are experimenting on his body, he was trying to get up on his own, he said that a light bulb exploded in his mouth that morning, he was looking for the light bulb in the garbage can, he refused to have his vital sig ns taken A Telepsych eval was ordered and it was done. The impression was that he was delirious. Telepsych confirmed that he probably has Wernicke Korsakoff syndrome and that he was cognitively impaired. Per court, has been deemed incapacitated. delinquency prevention social worker obtained paperwork to confirm it. * He got high-dose IV thiamine 500 mg 3 times daily for 3 days on 05/31-06/02, to be followed by 500 mg daily for 5 days June 03 We started him on oral thiamine 250 mg daily June 09, as was recommended by the Telepsych aws consultant. * The Haldol as needed ordered for agitation, which was recommended also by Telepsychiatrist, anf if needed, the use of Depakote. * He has completed his Librium taper and we have not had to treat agitation for over a week. On 06/15, the Ruthy and I saw him together and checked his memory and insight. The patien had poor insight and poor short term memory. On 06/21, I spoke to him about his plans after discharge and he was able to tell me he wants to live in a Clean and Sober Facility, he called one and can be accepted. He also had insight into why he relapsed this time: it was after visiting his son's grave and the location where the son . He discussed how much he benefitted from AA meetings. His sister in [place] has agreed to be his AA sponsor. I passed this info to Ruthy in today who then discussed with him other Sober living houses that he can reach out to. Today, 06/22, I discussed with him that he may be ready for discharge soon since he has good insight into his problems, as long as he has a plan to stay sober unti he can get a bed at [facility] in [place] on Jul 14. The patient answered that he is homeless and would not know where to go. The socially responsible investment adviser and I both advised to contact family and friends. SW will look into giving him a hotel card. I then today reached out to his daughter Solitario Wall on 06/22, she was camping and had no cell service. We discussed all the above. She knows that the patient does not want her to be the DPOA. She knows she has to return his debit card. There are no changes to this plan as of today. We are awaiting placement. 2) Alcohol abuse Impression/Plan: As in #1 (3) Reversed sleep wake cycle Assessment/Plan: Chronic, predated hospital admit. Supportive care - ok to maintain current cycle. (4) Tarry stool Assessment/Plan: RESOLVED After presenting to the ICU, the patient had a guaiac pos. stool He was on Protonix po twice daily for treating a poss ulcer His Hgb has been stable and no further melena. Protonix was stopped 06/18. Plan: Cont to avoid any aspirin or NSAID products (5) Viral respiratory infection Assessment/Plan: RESOLVED Rhionvirus Positive on 05/23 Sx Resolved and we ended droplet precautions 6) Placement/ Discharge Awaiting safe discharge, daughter was working on getting guardianship. The patient has chosen his sister in [place] as his medical DPOA - Current Meds Current Meds: Current Medications Generic Name Dose Route Start Last Admin Trade Name Freq PRN Reason Stop Dose Admin Acetaminophen 650 mg 05/31/23 10:21 06/21/23 04:46 Acetaminophen 325 Mg Tablet PO 650 mg Q8HR PRN Administration Pain or Fever > 38C (100.4F) Ketoconazole 1 applic 06/18/23 10:20 06/22/23 08:33 Ketoconazole 2% Cream 15 Gm Tube TOP 1 applic BID MARY Administration Magnesium Oxide 400 mg 05/26/23 08:00 06/22/23 08:31 Magnesium Oxide 400 Mg Tablet PO 400 mg DAILYWM MARY Administration Multi-Ingredient Ointment 1 applic 05/23/23 12:08 05/30/23 08:38 Zinc Oxide 20% Oint 30 Gm Tube TOP 1 applic PRN PRN Administration Skin Care Nicotine 1 patch 06/13/23 09:00 06/22/23 08:30 Nicotine 7 Mg Patch TOP 1 patch DAILY MARY Administration Polyethylene Glycol 17 gm 05/30/23 09:00 06/22/23 08:31 Polyethylene Glycol 3350 17 Gm Packet PO Not Given DAILY MARY Potassium Chloride 20 meq 05/27/23 08:00 06/22/23 08:30 Potassium Chloride 10 Meq Capsule PO 20 meq DAILYWM MARY Administration Multivit/Folic Acid/Iron 1 tab 05/24/23 09:00 06/22/23 08:30 Vitamin Tablet PO 1 tab DAILY MARY Administration Thiamine HCl 250 mg 06/09/23 10:30 06/22/23 08:31 Thiamine 100 Mg Tablet PO 250 mg DAILY MARY Administration - Lab Result Fish Bone Diagrams: 06/19/23 04:19 06/19/23 04:19 Subjective - Subjective Patient Reports: No Complaints Objective Vital Signs: Vital Signs - 24 hr 06/22/23 07:58 Temperature 36.6 C Heart Rate [ 76 Brachial] Respiratory 18 Rate Blood Pressure 113/84 H [Right Brachial artery] O2 Saturation 98 Oxygen O2 Source [Without Activity] Nasal cannula O2 Source Room air Oxygen Flow Rate 4 I&O (Last 24 Hrs): Intake and Output Totals x24h 06/20/23 06/21/23 06/22/23 23:59 23:59 23:59 Intake Total 2260 2640 1160 Balance 2260 2640 1160 General: Alert, Oriented x3 HEENT: Mucous membr. moist/pink Neck: Supple Neuro: Alert, Non Focal Cardiovascular: Regular rate Respiratory: No respiratory distress Abdomen: Other (No distension) Extremities: No clubbing, No edema, No tenderness/swelling - Results Results: Laboratory Results WBC 5.2 x10^3/uL (4.8-10.8) 06/19/23 04:19 RBC 4.37 10^6/uL (4.70-6.10) L 06/19/23 04:19 Hgb 13.1 g/dL (14.0-18.0) L 06/19/23 04:19 Hct 40.6 % (42.0-52.0) L 06/19/23 04:19 MCV 92.9 fL (80.0-94.0) 06/19/23 04:19 MCH 30.0 pg (27.0-31.0) 06/19/23 04:19 MCHC 32.3 g/dL (32.0-36.0) 06/19/23 04:19 RDW 15.8 % (12.0-15.0) H 06/19/23 04:19 Plt Count 150 10^3/uL (130-450) 06/19/23 04:19 MPV 13.0 fL (7.4-11.4) H 06/19/23 04:19 Neut # (Auto) 2.9 10^3/uL (1.5-6.6) 05/24/23 04:16 Lymph # (Auto) 0.6 10^3/uL (1.5-3.5) L 05/24/23 04:16 Levy # (Auto) 0.3 10^3/uL (0.0-1.0) 05/24/23 04:16 Eos # (Auto) 0.0 10^3/uL (0.0-0.7) 05/24/23 04:16 Baso # (Auto) 0.0 10^3/uL (0.0-0.1) 05/24/23 04:16 Absolute Nucleated RBC 0.00 x10^3/uL 05/24/23 04:16 Nucleated RBC % 0.0 /100WBC 05/24/23 04:16 Manual Slide Review Indicated 05/22/23 20:14 Platelet Estimate DECREASED (<130,000) (NORMAL) 05/22/23 20:14 Platelet Morphology NORMAL APPEARANCE (NORMAL) 05/22/23 20:14 RBC Morph Micro Appear NORMAL APPEARANCE (NORMAL) 05/22/23 20:14 PT 13.0 secs (9.9-12.6) H 05/24/23 04:16 INR 1.2 (0.8-1.2) 05/24/23 04:16 D-Dimer 730.4 ng/mL (200.0-255.0) H 05/23/23 07:31 VBG pH 7.463 (7.31-7.41) H 05/27/23 04:55 Ionized Calcium 1.09 mmol/L (1.15-1.33) L 05/27/23 04:55 Sodium 138 mmol/L (135-145) 06/19/23 04:19 Potassium 4.0 mmol/L (3.5-4.5) 06/19/23 04:19 Chloride 106 mmol/L (101-111) 06/19/23 04:19 Carbon Dioxide 27 mmol/L (21-32) 06/19/23 04:19 Anion Gap 5.0 (6-13) L 06/19/23 04:19 BUN 15 mg/dL (6-20) 06/19/23 04:19 Creatinine 0.6 mg/dL (0.6-1.3) 06/19/23 04:19 Estimated GFR (MDRD) 136 (>89) 06/19/23 04:19 Glucose 91 mg/dL (74-104) 06/19/23 04:19 Calcium 9.5 mg/dL (8.5-10.3) 06/19/23 04:19 Phosphorus 3.7 mg/dL (3.7-7.2) 05/27/23 04:55 Magnesium 1.8 mg/dL (1.7-2.3) 06/04/23 04:45 Total Bilirubin 0.8 mg/dL (0.2-1.0) 05/27/23 10:45 AST 91 IU/L (10-42) H 05/27/23 10:45 ALT 89 IU/L (10-60) H 05/27/23 10:45 Alkaline Phosphatase 121 IU/L (42-121) 05/27/23 10:45 Ammonia 35.4 umol/L (7-35) H 05/26/23 04:29 B-Natriuretic Peptide 23 pg/mL (5-100) 05/23/23 07:31 Total Protein 6.4 g/dL (6.4-8.9) 05/27/23 10:45 Albumin 3.4 g/dL (3.2-5.5) 05/27/23 10:45 Globulin 3.0 g/dL (2.1-4.2) 05/27/23 10:45 Albumin/Globulin Ratio 1.1 (1.0-2.2) 05/27/23 10:45 Lipase 106 U/L (22-51) H 05/22/23 20:14 Urine Color DARK YELLOW 05/23/23 15:26 Urine Clarity CLEAR (CLEAR) 05/23/23 15:26 Urine pH 6.5 PH (5.0-7.5) 05/23/23 15:26 Ur Specific [place] 1.025 (1.002-1.030) 05/23/23 15:26 Urine Protein 100 mg/dL (NEGATIVE) H 05/23/23 15:26 Urine Glucose (UA) NEGATIVE mg/dL (NEGATIVE) 05/23/23 15:26 Urine Ketones 15 mg/dL (NEGATIVE) H 05/23/23 15:26 Urine Occult Blood SMALL (NEGATIVE) H 05/23/23 15:26 Urine Nitrite NEGATIVE (NEGATIVE) 05/23/23 15:26 Urine Bilirubin SMALL (NEGATIVE) H 05/23/23 15:26 Urine Urobilinogen 2 E.U./dL (NORMAL) H 05/23/23 15:26 Ur Leukocyte Esterase NEGATIVE (NEGATIVE) 05/23/23 15:26 Urine RBC 0-5 /HPF (0-5) 05/23/23 15:26 Urine WBC 0-3 /HPF (0-3) 05/23/23 15:26 Ur Squamous Epith Cells NONE SEEN (<= Few) 05/23/23 15:26 Urine Bacteria Rare /HPF (None Seen) 05/23/23 15:26 Ur Microscopic Review INDICATED 05/23/23 15:26 Urine Culture Comments NOT INDICATED 05/23/23 15:26 Nasal Adenovirus (PCR) NOT DETECTED 05/23/23 07:57 Nasal B. parapertussis DNA (PCR) NOT DETECTED 05/23/23 07:57 Nasal Coronavir 229E PCR NOT DETECTED 05/23/23 07:57 Nasal Coronavir HKU1 PCR NOT DETECTED 05/23/23 07:57 Nasal Coronavir NL63 PCR NOT DETECTED 05/23/23 07:57 Nasal Coronavir OC43 PCR NOT DETECTED 05/23/23 07:57 Nasal Enterovir/Rhinovir PCR DETECTED A 05/23/23 07:57 Nasal Influenza B PCR NOT DETECTED 05/23/23 07:57 Nasal Influenza A PCR NOT DETECTED 05/23/23 07:57 Nasal Parainfluen 1 PCR NOT DETECTED 05/23/23 07:57 Nasal Parainfluen 2 PCR NOT DETECTED 05/23/23 07:57 Nasal Parainfluen 3 PCR NOT DETECTED 05/23/23 07:57 Nasal Parainfluen 4 PCR NOT DETECTED 05/23/23 07:57 Nasal RSV (PCR) NOT DETECTED 05/23/23 07:57 Nasal Screen MRSA (PCR) NEGATIVE (NEGATIVE) 05/23/23 12:10 Nasal B.pertussis DNA PCR NOT DETECTED 05/23/23 07:57 Nasal C.pneumoniae (PCR) NOT DETECTED 05/23/23 07:57 Juan Daniel Human Metapneumo PCR NOT DETECTED 05/23/23 07:57 Nasal M.pneumoniae (PCR) NOT DETECTED 05/23/23 07:57 Nasal SARS-CoV-2 (PCR) NOT DETECTED 05/23/23 07:57 Urine Opiates Screen NEGATIVE (NEGATIVE) 05/23/23 15:26 Ur Oxycodone Screen NEGATIVE (NEGATIVE) 05/23/23 15:26 Urine Methadone Screen NEGATIVE (NEGATIVE) 05/23/23 15:26 Ur Propoxyphene Screen NEGATIVE (NEGATIVE) 05/23/23 15:26 Ur Barbiturates Screen POSITIVE (NEGATIVE) H 05/23/23 15:26 Ur Tricyclics Screen NEGATIVE (NEGATIVE) 05/23/23 15:26 Ur Phencyclidine Scrn NEGATIVE (NEGATIVE) 05/23/23 15:26 Ur Amphetamine Screen NEGATIVE (NEGATIVE) 05/23/23 15:26 U Methamphetamines Scrn NEGATIVE (NEGATIVE) 05/23/23 15:26 U Benzodiazepines Scrn POSITIVE (NEGATIVE) H 05/23/23 15:26 Urine Cocaine Screen NEGATIVE (NEGATIVE) 05/23/23 15:26 U Cannabinoids Screen POSITIVE (NEGATIVE) H 05/23/23 15:26 Ethyl Alcohol 291.5 mg/dL 05/22/23 20:14
[2023-06-23] MEDS: MAGNESIUM OXIDE 400 MG TABLET PO SCH (08:20)
[2023-06-23] MEDS: POTASSIUM CHLORIDE 10 MEQ CAPSULE PO SCH (08:20)
[2023-06-23] MEDS: polyethylene glycoL 3350 17 GM PACKET PO SCH (08:20)
[2023-06-23] MEDS: NICOTINE 7 MG PATCH TOP SCH (08:20)
[2023-06-23] MEDS: PRENATAL VITAMIN TABLET PO SCH (08:20)
[2023-06-23] MEDS: THIAMINE 100 MG TABLET PO SCH (08:20)
[2023-06-23] MEDS: KETOCONAZOLE 2% CREAM 15 GM TUBE TOP SCH (08:21)
[2023-06-23 08:52] VITALS: BP 117/78; O2SAT 100
--- NOTE | 2023-06-23 08:57 | Discharge Plan ---
Discharge Plan Problem Reviewed?: Yes Disposition: Home, Self Care Condition: Stable Prescriptions: Ketoconazole 2% Cream [Nizoral 2% Cream] 1 applic TOP BID #1 each Multivitamin [Theragran] 1 each PO DAILY #30 tab Thiamine [Vitamin B-1] 100 mg PO DAILY #30 tablet Diet: Regular Activity Restrictions: Activity as Tolerated Shower Restrictions: No Driving Restrictions: No Health Concerns: You are being discharged today. You have made wonderful improvement in your condition since being admitted. We arranged to provide you with a voucher for 2 days/nights stay at a hotel, and then we promote that you stay somewhere that helps you stay clean and sober, without any alcohol intake whatsoever. We highly support you joining an AA group locally, and getting into the sober living house, on July 14. You are prescribed to take a daily thiamine vitamin, for having had alcohol abuse, plus a daily multi-vitamin. I also prescribed the athlete's foot ointment that you put on your feet. All new prescriptions were electronically sent to your [facility] in [place]. Plan of Treatment: As above. You should establish with a Primary Care medical provider, or you can go to the walk-in clinics for medical care and prescription refills. Care Goals: Improvement in symptoms and stabilization are the goals. Assessment: The patient understands and is agreeable with the plan. No Smoking: If you smoke, Please STOP! Call for help.
--- NOTE | 2023-06-23 10:53 | DISCHARGE SUMMARY ---
Discharge Summary Admit Date: 05/23/23 Discharge Date: 06/23/23 Discharging Provider: Dr Page Hoskins Primary Care Provider: None Condition at Discharge: Stable Discharge Disposition: 01 Home, Self Care - HPI History of Present Illness: This is a 63-year-old male with a history of alcohol abuse. He has had prior admissions here for alcohol withdrawal, the last was from Nov 2021 through Feb 2022. At that time, he first underwent alcohol withdrawal, was hallucinating and delusional and required Haldol and Risperidone and restraints. He had a telepsych evaluation and was deemed not competent to make decisions for himself. The reason for the prolonged hospitalization was to establish guardianship. He was finally discharged under the care of his daughter and then was to live with his sister in [place]. We do not know how his living situation changed after he left the hospital then. Last night he was found to be confused and brought in by ambulance. He lives in his car and is homeless. He described many recent falls. His alcohol level was positive at presentation in the ER. After that he started going into alcohol withdrawal with persistent confusion, ataxia and weakness, and tremulousness. He received several doses of IV Ativan pushes. Also in the ER he was noted to be hypoxic with O2 saturations of 88% on room air. He was started on suppl emental oxygen. When the oxygen was removed several hours later to assess if he could be discharge, he was still hypoxic at 88% on room air and was still ataxic and had a near fall while being assisted to walk to the bathroom in the ER. Other work-up shows that he has transaminitis, low platelet count, and his respiratory PCR is positive for enterovirus and rhinovirus. He had a CTA chest that showed no PE and no infiltrates. The ED provider then reached out to me on the Hospitalist service and we spoke about this patient. His last CIWA score was 21. The patient will be admitted to the ICU for managing active alcohol withdrawal and scoring very high on CIWA protocol, needing high-dose ICU-protocol Ativan treatment. - HOSPITAL COURSE Hospital Course: 1) Alcohol dependance with withdrawal delerium He was admitted to the ICU, for scoring high on CIWA protocol. He needed high- dose benzodiazepines. He was also on Librium. After several days on Ativan he was able to be moved out of the ICU. The Librium was tapered down and then was continued only at hs prn insomnia. 2) Alcohol abuse The patient had been sober for about 1 year when he lived with his sister recently in [place]. She then apparently threw him out of the house when he started drinking again. He came to live with his daughter on [facility] but continued to abuse alcohol so she also kicked him out. He went to live in his old car on his ex-'s (previously his) old farm property. He said that he had restarted binge drinking when he became depressed because he visited his son's burial site at the cemetery and the site where the son . As he slowly improved during this hospitalization he had good insight into what caused his relapse, reported that AA was a very helpful organization for him, had a plan and wanted to join an AA group here, and he reached out to a local sober living center in [place] where he will have an interview in approximately 2 weeks. He said his sister Alba agreed to be his sponsor and he also made Alba his DPOA on paperwork which he completed while here, with SW assistance. He was pro vided 2 days of hotel vouchers and was discharged in stable condition as a homeless individual. 3) Wernicke-Korsakoff syndrome (alcoholic) On 05/31, his behavior was more aggressive, he was refusing to take any pills, he was saying that we are experimenting on his body, he was trying to get up on his own, he said that a light bulb exploded in his mouth that morning, he was looking for the light bulb in the garbage can, he refused to have his vital signs taken. A Telepsych eval was done. The impression was that he was delirious. Telepsych confirmed that he probably has Wernicke Korsakoff syndrome and that he was cognitively impaired. The Telepsych doctor gave recommendations which we followed: -He got high-dose IV thiamine 500 mg 3 times daily for 3 days on 05/31-06/02, to be followed by 500 mg daily for 5 days June 03 -We started him on oral thiamine 250 mg daily June 09, as was recommended by the Telepsych oracle ascp consultant. -The Haldol as needed ordered for agitation, which was recommended also by Telepsychiatrist, and Depakote if needed -He completed his Librium taper and we did not had to treat agitation for over a week. On 06/15, the patient still had poor insight and poor short term memory. On 06/21, he was able to describe that he wants to live in a Clean and Sober Facility, he called one and can be accepted there in several weeks. He also had insight into why he relapsed this time: it was after visiting his son's grave and the location where the son . He discussed how much he benefitted from AA meetings. His sister in [place] agreed to be his AA sponsor. I reached out to his daughter Solitario Wall. She knew that the patient decided not to make her his DPOA. She was paying his bills but did return his debit card before discharge. On 06/22, we informed him that he would be ready for discharge soon. The patient answered that he is homeless and would not know where to go. He was advised to contact family and friends. He was also provided with a 2-night hotel voucher. 4) Viral respiratory infection Rhionvirus Positive on 05/23. His URI symptoms resolved and we ended droplet precautions 5) Reversed sleep wake cycle This predated the current hospital admit. It resolved while here 6) Tarry stool After presenting to the ICU, the patient had a guaiac pos. stool. He was on Protonix po twice daily for treating a poss ulcer. His Hgb was stable and there was no further melena. Protonix was stopped 06/18. He was advised to avoid alcohol, any aspirin or NSAID products 7) Homeless single person As per Hx. - ALLERGIES Allergies/Adverse Reactions: Allergies Allergy/AdvReac Type Severity Reaction Status Date / Time Penicillins AdvReac Hives Verified 05/22/23 20:09 - MEDICATIONS Home Medications: Ambulatory Orders Medication Instructions Recorded Confirmed Ketoconazole 2% Cream [Nizoral 2% 1 applic TOP BID #1 each 06/23/23 Cream] Multivitamin [Theragran] 1 each PO DAILY #30 tab 06/23/23 Thiamine [Vitamin B-1] 100 mg PO DAILY #30 tablet 06/23/23 - PHYSICAL EXAM AT DISCHARGE General Appearance: positive: No acute distress, Alert Eyes Bilateral: positive: Normal inspection, EOMI ENT: positive: ENT inspection nml, No signs of dehydration Neck: positive: Nml inspection, No JVD Respiratory: positive: No respiratory distress, Breath sounds nml Cardiovascular: positive: Regular rate & rhythm, No murmur Abdomen: positive: Non-tender, Nml bowel sounds, No distention Skin: positive: Warm, Dry, Other (Not icteric) Extremities: positive: Non-tender, No pedal edema Neurologic/Psychiatric: positive: Oriented x3, Motor nml, Sensation nml, Other (No tremor, no nystagmus) - LABS Result Diagrams: 06/19/23 04:19 06/19/23 04:19 - FOLLOW UP Follow Up: He was advised to establish with a PCP locally, or to be seen in a walk-in clinic for hospital follow-up visit. - TIME SPENT Time Spent in Discharge (Minutes): 40
== END 2023-06-23 11:10 | disposition home or self-care (01) | DRG 897 ==
LOC: EDUNIT# → ED 19:45 → ICU 05-23 11:32 → MS2 05-27 22:36
PROVIDERS: ADMIT Internal Medicine; ATTEND Internal Medicine
DX: F10.231 Alcohol dependence with withdrawal delirium (principal); R09.02 Hypoxemia; F10.259 Alcohol dependence with alcohol-induced psychotic disorder, unspecified; G47.20 Circadian rhythm sleep disorder, unspecified type; K70.30 Alcoholic cirrhosis of liver without ascites; F17.200 Nicotine dependence, unspecified, uncomplicated; S00.83XA Contusion of other part of head, initial encounter; S00.33XA Contusion of nose, initial encounter; W19.XXXA Unspecified fall, initial encounter; J98.8 Other specified respiratory disorders; B97.89 Other viral agents as the cause of diseases classified elsewhere; B97.10 Unspecified enterovirus as the cause of diseases classified elsewhere; M79.606 Pain in leg, unspecified; W06.XXXA Fall from bed, initial encounter; Y92.230 Patient room in hospital as the place of occurrence of the external cause; D69.6 Thrombocytopenia, unspecified; R19.5 Other fecal abnormalities; R53.1 Weakness; Z20.822 Contact with and (suspected) exposure to COVID-19; Z59.02 Unsheltered homelessness; Z63.4 Disappearance and death of family member; Z91.81 History of falling
CPT/HCPCS: 36415; 70450; 71045; 71046; 71275; 72125; 80048; 80053; 80306; 80320; 81001; 82140; 82272; 82330; 83690; 83735; 83880; 84100; 84132; 85018; 85025; 85027; 85379; 85610; 87070; 87150; 87205; 87633; 94640; 96365; 96366; 96375; 96376; 97116; 97162; 97166; 97530; 99285; A6250; A9270; J1170; J2060; J3411; J3490; J7040; Q3014; Q9967; 81003; 87086

== ENCOUNTER 2023-07-07 13:14 | Emergency (ER) | payer MEDICAID ==
[2023-07-07 20:18] LABS: BASOPHILS % (AUTO) 0.9 %; EOSINOPHILS % (AUTO) 0.6 %; HCT - HEMATOCRIT 47.2 % (42.0-52.0); HGB - HEMOGLOBIN 15.8 g/dL (14.0-18.0); LYMPHOCYTES # (AUTO) 1.6 10^3/uL (1.5-3.5); LYMPHOCYTES % (AUTO) 47.8 %; MEAN CORPUSCULAR HEMOGLOBIN 30.5 pg (27.0-31.0); MEAN CORPUSCULAR HGB CONC 33.5 g/dL (32.0-36.0); MEAN CORPUSCULAR VOLUME 91.1 fL (80.0-94.0); MEAN PLATELET VOLUME 11.6 fL (7.4-11.4); MONOCYTES # (AUTO) 0.3 10^3/uL (0.0-1.0); MONOCYTES % (AUTO) 7.4 %; NEUTROPHILS # (AUTO) 1.5 10^3/uL (1.5-6.6); NEUTROPHILS % (AUTO) 43.3 %; PLT - PLATELET COUNT 80 10^3/uL (130-450); RED BLOOD COUNT 5.18 10^6/uL (4.70-6.10); RED CELL DISTRIBUTION WIDTH 16.7 % (12.0-15.0); WHITE BLOOD COUNT 3.4 x10^3/uL (4.8-10.8)
[2023-07-07 20:36] LABS: ALBUMIN 3.9 g/dL (3.2-5.5); ALBUMIN/GLOBULIN RATIO 1.3 (1.0-2.2); BILIRUBIN,TOTAL 0.7 mg/dL (0.2-1.0); CALCIUM 8.6 mg/dL (8.5-10.3); CREATININE 0.6 mg/dL (0.6-1.3); ETOH - ETHANOL 297.8 mg/dL; POTASSIUM 3.2 mmol/L (3.5-4.5); TOTAL PROTEIN 6.8 g/dL (6.4-8.9)
[2023-07-07 21:19] LABS: MUDS CUTOFF CONCENTRATIONS CUTOFF CONC BELOW:
[2023-07-07 21:23] LABS: BILIRUBIN,URINE NEGATIVE (NEGATIVE); GLUCOSE, URINE (UA) NEGATIVE (NEGATIVE); KETONES,URINE (UA) TRACE mg/dL (NEGATIVE); LEUKOCYTE ESTERASE, URINE NEGATIVE (NEGATIVE); NITRITE,URINE NEGATIVE (NEGATIVE); OCCULT BLOOD,URINE SMALL (NEGATIVE); PROTEIN,URINE 100 mg/dL (NEGATIVE); UROBILINOGEN,URINE 1 (NORMAL) E.U./dL (NORMAL)
[2023-07-07 21:25] LABS: CLARITY,URINE CLEAR (CLEAR)
[2023-07-07] MEDS ORDERED: SODIUM CHLORIDE 0.9% 1,000 ML IV STA (21:25)
[2023-07-07 21:36] LABS: WBC,URINE 0-3 /HPF (0-3)
[2023-07-07 21:37] LABS: AMPHETAMINE SCREEN,URINE NEGATIVE (NEGATIVE); BACTERIA,URINE None Seen /HPF (None Seen); BARBITURATE SCREEN,UR NEGATIVE (NEGATIVE); BENZODIAZEPINES SCREEN, URINE POSITIVE (NEGATIVE); COCAINE SCREEN URINE NEGATIVE (NEGATIVE); METHADONE SCREEN, URINE NEGATIVE (NEGATIVE); METHAMPHETAMINES SCREEN, URINE NEGATIVE (NEGATIVE); MUCUS,URINE Marked Strands; OPIATE SCREEN, URINE NEGATIVE (NEGATIVE); OXYCODONE SCREEN, URINE NEGATIVE (NEGATIVE); PROPOXYPHENE SCREEN, URINE NEGATIVE (NEGATIVE); RBC,URINE 0-5 /HPF (0-5); SQUAMOUS EPITHELIAL CELL,UR NONE SEEN (<= Few); THC CANNABINOID SCREEN, URINE POSITIVE (NEGATIVE); TRICYCLIC ANTIDEPRESSANT,URINE NEGATIVE (NEGATIVE)
[2023-07-07] MEDS ORDERED: PHENobarbital 65 MG/ML VIAL IV STA (22:56)
--- NOTE | 2023-07-07 23:30 | ED Physician Documentation ---
History of Present Illness - Stated complaint Stated Complaint: AMS/ETOH - Chief complaint Chief Complaint: General - History obtained from History obtained from: Patient, Family - Additonal information Additional information: The patient is brought to the emergency department by his sister for chief complaint of alcohol intoxication and needs placement. The patient has a longstanding history of alcoholism and has been seen in our department multiple times for this. He has gone to detox both from here and other facilities but has generally signed out AGAINST MEDICAL ADVICE and gone back to drinking. The family took him to [facility] today, but I do it told him he was too intoxicated to be taken into their facility and they recommended that he come over here. The patient denies nausea, vomiting, or tremors. He states that he really wants to go back to his normal self and stop drinking and he would like to go to a facility again. He is not currently hallucinating or feeling as though he is withdrawing. No other complaints at this time. The patient was just discharged from our facility a couple of weeks ago after being admitted for alcohol withdrawal. His last drink was around noon today. 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 She does not feel that he is stable to live on his own. Patient is homeless and has been living either in his car or at a hotel. PD PAST MEDICAL HISTORY - Past Medical History Past Medical History: Yes Cardiovascular: None Respiratory: None Neuro: Other Endocrine/Autoimmune: None GI: Cirrhosis Psych: Other Musculoskeletal: Osteoarthritis Other Past Medical History: Alcoholism - Past Surgical History Past Surgical History: Yes Ortho: Other - Present Medications Home Medications: Ambulatory Orders Medication Instructions Recorded Confirmed Ketoconazole 2% Cream [Nizoral 2% 1 applic TOP BID #1 each 06/23/23 Cream] Multivitamin [Theragran] 1 each PO DAILY #30 tab 06/23/23 Thiamine [Vitamin B-1] 100 mg PO DAILY #30 tablet 06/23/23 - Allergies Allergies/Adverse Reactions: Allergies Allergy/AdvReac Type Severity Reaction Status Date / Time Penicillins AdvReac Hives Verified 07/07/23 13:48 - Social History Does the pt smoke?: Yes Smoking Status: Current every day smoker Does the pt drink ETOH?: Yes Does the pt have substance abuse?: No - Immunizations Immunizations are current?: Yes - POLST Patient has POLST: No PD ED PE NORMAL - Vitals Vital signs reviewed: Yes - General General: No acute distress, Well developed/nourished, Other (Alert, answers questions appropriately, fairly well-appearing.) - HEENT HEENT: Atraumatic, PERRL, EOMI, Moist mucous membranes - Neck Neck: Supple, no meningeal sign - Cardiac Cardiac: RRR, No murmur - Respiratory Respiratory: No respiratory distress, Clear bilaterally - Abdomen Abdomen: Soft, Non tender, Non distended - Derm Derm: Normal color, Warm and dry, No rash - Extremities Extremities: No deformity - Neuro Neuro: Other (Alert, answers questions appropriately, moves all 4 extremities. Grossly intact. No tremors.) - Psych Psych: Normal mood, Normal affect Results - Vitals Vitals: Vital Signs - 24 hr 07/07/23 07/07/23 07/07/23 13:48 20:05 21:50 Temperature 36.5 C 36.9 C Heart Rate 90 88 92 Respiratory 16 16 16 Rate Blood Pressure 120/90 H 128/77 163/102 H O2 Saturation 94 94 94 07/07/23 22:42 Temperature Heart Rate 87 Respiratory 16 Rate Blood Pressure 137/93 H O2 Saturation 95 Oxygen O2 Source [Without Activity] Nasal cannula O2 Source Room air - Labs Labs: Laboratory Tests 07/07/23 07/07/23 07/07/23 15:36 20:13 20:13 WBC 3.4 L RBC 5.18 Hgb 15.8 Hct 47.2 MCV 91.1 MCH 30.5 MCHC 33.5 RDW 16.7 H Plt Count 80 L MPV 11.6 H Neut # (Auto) 1.5 Lymph # (Auto) 1.6 Bee # (Auto) 0.3 Eos # (Auto) 0.0 Baso # (Auto) 0.0 Absolute Nucleated RBC 0.00 Nucleated RBC % 0.0 Sodium 140 Potassium 3.2 L Chloride 100 L Carbon Dioxide 28 Anion Gap 12.0 BUN 9 Creatinine 0.6 Estimated GFR (MDRD) 136 Glucose 142 H Calcium 8.6 Total Bilirubin 0.7 AST 58 H ALT 23 Alkaline Phosphatase 108 Total Protein 6.8 Albumin 3.9 Globulin 2.9 Albumin/Globulin Ratio 1.3 Lipase 57 Urine Color Urine Clarity Urine pH Ur Specific [place] Urine Protein Urine Glucose (UA) Urine Ketones Urine Occult Blood Urine Nitrite Urine Bilirubin Urine Urobilinogen Ur Leukocyte Esterase Urine RBC Urine WBC Ur Squamous Epith Cells Urine Bacteria Urine Mucus Ur Microscopic Review Urine Culture Comments Urine Opiates Screen Ur Oxycodone Screen Urine Methadone Screen Ur Propoxyphene Screen Ur Barbiturates Screen Ur Tricyclics Screen Ur Phencyclidine Scrn Ur Amphetamine Screen U Methamphetamines Scrn U Benzodiazepines Scrn Urine Cocaine Screen U Cannabinoids Screen Ethyl Alcohol 407.9 297.8 07/07/23 21:15 WBC RBC Hgb Hct MCV MCH MCHC RDW Plt Count MPV Neut # (Auto) Lymph # (Auto) Bee # (Auto) Eos # (Auto) Baso # (Auto) Absolute Nucleated RBC Nucleated RBC % Sodium Potassium Chloride Carbon Dioxide Anion Gap BUN Creatinine Estimated GFR (MDRD) Glucose Calcium Total Bilirubin AST ALT Alkaline Phosphatase Total Protein Albumin Globulin Albumin/Globulin Ratio Lipase Urine Color DARK YELLOW Urine Clarity CLEAR Urine pH 6.0 Ur Specific [place] 1.025 Urine Protein 100 H Urine Glucose (UA) NEGATIVE Urine Ketones TRACE Urine Occult Blood SMALL H Urine Nitrite NEGATIVE Urine Bilirubin NEGATIVE Urine Urobilinogen 1 (NORMAL) Ur Leukocyte Esterase NEGATIVE Urine RBC 0-5 Urine WBC 0-3 Ur Squamous Epith Cells NONE SEEN Urine Bacteria None Seen Urine Mucus Marked Strands Ur Microscopic Review INDICATED Urine Culture Comments NOT INDICATED Urine Opiates Screen NEGATIVE Ur Oxycodone Screen NEGATIVE Urine Methadone Screen NEGATIVE Ur Propoxyphene Screen NEGATIVE Ur Barbiturates Screen NEGATIVE Ur Tricyclics Screen NEGATIVE Ur Phencyclidine Scrn NEGATIVE Ur Amphetamine Screen NEGATIVE U Methamphetamines Scrn NEGATIVE U Benzodiazepines Scrn POSITIVE H Urine Cocaine Screen NEGATIVE U Cannabinoids Screen POSITIVE H Ethyl Alcohol PD Medical Decision Making - ED course Complexity details: reviewed results, re-evaluated patient, considered differential, d/w patient, d/w family ED course: The patient initially had a blood alcohol level of 407, and several hours later, was down to 297. He did not have any complaints of withdrawal symptoms. I had a long and serious discussion with the patient and his sister and that the family has not made any attempt to take over decision-making for the patient and as such, the patient is his own decision maker. He has repeatedly left AGAINST MEDICAL ADVICE very soon after either sobering up or being placed in detox facilities at no small outlay of effort from our staff. I have stated to both the patient and the sister that we will not hold the patient against his will and ultimately, if the family is not willing to take him in and help care for him, and if the patient is not willing to stay, then he will ultimately will have to be allowed to make this decision himself. The sister expresses understanding, and at this point in time, the patient insists that he does actually want to get help this time. He has been given a dose of phenobarbital to help stave off alcohol withdrawal as his alcohol level comes down though at this point, he does not have any symptoms. I have consulted social work for the morning and the patient is signed out to the oncoming emergency physician at change of shift, pending final disposition. Departure - Departure Clinical Impression: Alcohol intoxication Qualifiers: Complication of substance-induced condition: uncomplicated Qualified Code(s): F10.920 - Alcohol use, unspecified with intoxication, uncomplicated
--- NOTE | 2023-07-08 11:42 | ED Physician Documentation ---
ED Addendum - Addendum Addendum: Patient signed out to me at shift change. Patient is a 63-year-old with a history of alcohol abuse presenting for alcohol intoxication. He has sobered this morning. He is wanting detox. Social work has seen him and they have a bed available at [facility]. Transport is being arranged. 07/08/23 13:37 actuarial consultant Brisa Received a call from [facility] that they are not actually accepting this patient. She is attempting to reach social work to discuss this further. Patient's disposition remains unclear at this time. [id number] - No further updates regarding patient's disposition from social work. He has been calm and cooperative and ambulatory here. Patient will be signed out to oncoming provider at shift change.
--- NOTE | 2023-07-08 16:57 | ED Physician Documentation ---
ED Addendum - Addendum Addendum: 07/08/23 16:55 Social work consulted on the patient and there is a bed available at [facility]. The family will drive him there for detox. His currently alert and oriented x3. Does not have any tremors. No tachycardia. He states he feels well. He spoke to the [facility] intake person over the telephone. Patient counseled regarding signs and symptoms for which I believe and urgent re- evaluation would be necessary. Patient with good understanding of and agreement to plan and is comfortable going home at this time This document was made in part using voice recognition software. While efforts are made to proofread this document, sound alike and grammatical errors may oc cur. Departure - Departure Disposition: 01 Home, Self Care Clinical Impression: Alcohol abuse Alcohol intoxication Qualifiers: Complication of substance-induced condition: uncomplicated Qualified Code(s): F10.920 - Alcohol use, unspecified with intoxication, uncomplicated Condition: Poor Instructions: ED Alcohol Intoxication Follow-Up: your,doctor in 1 week [Other] Comments: Please follow-up with your doctor for further care. You are to go to [facility] today as instructed by social work. Please return if you worsen. Forms: PCP List
[2023-07-08] MEDS ORDERED: LORazepam 1 MG TABLET PO STA ×2 (19:31→23:19)
[2023-07-08] MEDS ORDERED: QUEtiapine 25 MG TABLET PO STA (19:31)
--- NOTE | 2023-07-08 19:55 | ED Physician Documentation ---
ED Addendum - Addendum Addendum: Apparently the bed at [facility] was not confirmed, after reviewing the case, [facility] detox declines the patient, therefore he will continue to board in the emergency department overnight for social work consult tomorrow. Patient signed out to the oncoming ED provider.
[2023-07-08] MEDS ORDERED: OLANZapine ODT 5 MG TABLET TL ONE (22:59)
--- NOTE | 2023-07-08 23:17 | ED Physician Documentation ---
ED Addendum - Addendum Addendum: 07/08/23 23:16 Patient endorsed to me by Dr. Thapa awaiting social work in the morning. Will monitor overnight and endorse to incoming daytime EDMD at 7 AM shift change.
[2023-07-09] MEDS: LORazepam 1 MG TABLET PO PRN ×2 (10:19→14:58)
[2023-07-09] MEDS ORDERED: LORazepam 1 MG TABLET PO STA (12:59)
[2023-07-09] MEDS ORDERED: POTASSIUM BICARB 25 MEQ TABLET PO STA (12:59)
--- NOTE | 2023-07-09 13:03 | ED Physician Documentation ---
ED Addendum - Addendum Addendum: 07/09/23 13:00 The patient was having some tachycardia and a bit anxious this morning. I placed an order for Ativan 1 mg every 6 hours as needed. There had not been a as needed medication as of yet ordered. This seemed to help him reasonably though he is still somewhat tachycardic. Social work worked with the patient and outlying facilities more today and sent information to various places. They heard back from [facility] detox program who are able to take him and accepted. Being detox mainly, the social work manager was working on a Medicaid taxi for the patient to get him there. ETA at this time is unknown but the work is in progress. I gave an extra dose of Ativan 2 mg tablet at this time. His potassium had been a little bit low so I gave a potassium supplement orally as well. At this point the patient is stable and appears well. She did have breakfast and is having lunch. We will continue to monitor on the level withdrawal symptoms. Disposition: The patient will be discharged from the ER to go to detox. Diagnoses: 1. Altered mental status, chronic 2. Alcohol withdrawal 3. Alcohol use disorder 4. mild hypokalemia
[2023-07-09] MEDS ORDERED: PHENobarbital 65 MG/ML VIAL IM STA ×2 (13:40→14:37)
[2023-07-09] MEDS ORDERED: OLANZapine ODT 5 MG TABLET TL ONE (17:00)
[2023-07-09] MEDS ORDERED: diazePAM INJ 5 MG/ML SYRINGE IM STA (17:00)
[2023-07-09 18:47] VITALS: BP 157/96; O2SAT 95
== END 2023-07-09 19:05 | disposition home or self-care (01) ==
LOC: ED 13:14
DX: F10.220 Alcohol dependence with intoxication, uncomplicated (principal); Y90.8 Blood alcohol level of 240 mg/100 ml or more; R41.82 Altered mental status, unspecified; E87.6 Hypokalemia; F17.200 Nicotine dependence, unspecified, uncomplicated
CPT/HCPCS: 36415; 80053; 80306; 80320; 81001; 83690; 85025; 87635; 96360; 96372; 99284; A9270; J8499; 81003; 87086